=== PATIENT | male | born 1965 | race Caucasian/White ===

== ENCOUNTER → 2017-11-10 | Outpatient (CLI) | payer BC ==
--- NOTE | 2017-11-10 13:27 | CT ---
EXAMINATION TYPE: CT chest wo con DATE OF EXAM: 11/10/2017 COMPARISON: NONE HISTORY: Follow up to lung nodule CT DLP: 696 mGycm, Automated exposure control for dose reduction was used. CONTRAST: Performed injected with 0 mL of Isovue 370. TECHNIQUE: Axial images were obtained at 5 mm thick sections. Reconstructed images are reviewed on [employer] computer in the coronal plane. FINDINGS: Portion of the thyroid visualized is normal. No suspicious lung nodules or focal infiltrates are present. There is a punctate nodule measuring 0.3 cm in the periphery of the right upper lobe. Series 4 image 25. Follow-up exam in 6 months can be pe rformed. No enlarged mediastinal or hilar adenopathy is evident. The ascending aorta diameter at the level o f the main pulmonary artery is 3.2 cm. The main pulmonary artery diameter at the bifurcation is 2.[address] sections are obtained through the upper abdomen. There is a nonobstructing 0.2 cm calcific ation in the mid right kidney. No hydronephrosis is evident. Abdomen is otherwise unremarkable. IMPRESSIONS: 1. No acute process. 2. 0.3 cm nodule periphery right upper lobe.
== END | disposition home or self-care (01) ==
LOC: RADCTMAIN 12:46
DX: R91.1 Solitary pulmonary nodule (principal)
CPT/HCPCS: 71250

== ENCOUNTER → 2017-12-06 | Outpatient (CLI) | payer BC | LOC: RADMRIMAIN 12:00 | PROVIDERS: ATTEND Internal Medicine | DX: Z53.8 Procedure and treatment not carried out for other reasons (principal) ==

== ENCOUNTER → 2021-01-15 | Outpatient (CLI) | payer BC ==
--- NOTE | 2021-01-15 11:49 | CTL ---
EXAMINATION TYPE: CT Low Dose Lung DATE OF EXAM ORDERED: 01/15/2021 COMPARISON: HISTORY: . Low Dose CT Lung Screening CT DLP: 115.[address] CTDI: 2.9 mGy IV CONTRAST USED: None. SCREENING VISIT: First visit COMPARISON: None. TECHNIQUE: Low dose computed tomography scan was performed through the chest at 1 millimeter thick se ctions and reconstructed images in the coronal plane at [address] DIAGNOSTIC QUALITY: Satisfactory FINDINGS: LUNG NODULES: Left lower lobe pulmonary nodule measuring 5.8 mm image 185. No additional nodules seen . LUNGS: COPD: Severity: None Fibrosis: Severity:None Lymph nodes: None Other findings: None RIGHT PLEURAL SPACE: Effusion: None Calcification: None Thickening: None Pneumothorax: None LEFT PLEURAL SPACE: Effusion: None Calcification: None Thickening: None Pneumothorax: None HEART: Heart Size: Mildly enlarged Coronary calcification: Mild Pericardial effusion: None OTHER FINDINGS: Upper abdomen: No significant abnormality Bony thorax: Degenerative changes Supraclavicular region: No significant abnormalityOther: No significant abnormalityI IMPRESSION: Benign FOLLOW UP CT CHEST RECOMMENDATION: Follow-up screening in one year. Smoking cessation recommended. CT LUNG RAD: LUNG RAD CATEGORY 2 benign.
== END | disposition home or self-care (01) ==
LOC: RADCTMAIN 11:18
PROVIDERS: ATTEND Internal Medicine
DX: Z12.2 Encounter for screening for malignant neoplasm of respiratory organs (principal)
CPT/HCPCS: 71271

== ENCOUNTER → 2021-02-12 | Outpatient (CLI) | payer BC ==
--- NOTE | 2021-02-12 14:18 | EST ---
EXERCISE STRESS AGE: 55 SEX: M HT: 5'11" WT: 185 lbs. PROTOCOL: Cardiolite Mickey STAGE: 4 DURATION OF EXERCISE: 10:04 HEART RATE REST: 74 BLOOD PRESSURE REST: 154/95 MAXIMUM HEART RATE ACHIEVED: 145 MAXIMUM BLOOD PRESSURE: 204/100 85% MPHR: 139 100% MPHR: 163 METS: 13.0 INDICATIONS: Abnormal EKG CLINICAL INFORMATION: Baseline rhythm is a sinus mechanism, rate of 74, right bundle branch block. Baseline blood pressure 154/95 mmHg. Patient exercised on Mickey protocol for 10 minutes 4 seconds, reaching a peak rate of 145 beats per minute, which is equal to 89% of maximum predicted heart rate. Peak blood pressure 204/100 minute Hg. Test was terminated because of fatigue. There was no chest pain. Electrocardiographic monitoring revealed no evidence of diagnostic ischemic ST deviation. CONCLUSION: 1. Good exercise tolerance with normal echocardiographic response to exercise. 2. No chest discomfort was noted. MMODL / IJN: [id number] /
--- NOTE | 2021-02-12 14:54 | NM ---
EXAMINATION TYPE: NM stress cardiolite complete DATE OF EXAM: 02/12/2021 COMPARISON: NONE HISTORY: R07.2 R00.2 TECHNIQUE: After the intravenous administration of 10.0 mCi Tc 99m Sestamibi - Rest images obtained 45 minutes post injection. The patient exercised using a CARMEN protocol and 1 minute prior to peak exercise was injected with 25.5 mCi Tc 99m Sestamibi - Stress images obtained 20 minutes post injecti on. FINDINGS: Targeted heart rate was achieved during performance of the study, patient achieved 89% of predicted m aximal heart rate. Review of stress and rest SPECT images demonstrates decreased uptake along the inf erior wall on stress and rest images, there is decreased uptake along the septum on stress as compare d to rest images towards the apex, decreased uptake along the septum on stress and rest images toward s the base of the heart. Gated analysis shows normal wall motion with an estimated left ventricular ejection fraction of 70 %. IMPRESSION: Evidence of prior infarct, there is stress-induced left ventricular myocardial ischemia, consider ech ocardiographic correlation for elevated ejection fraction. Referring clinician's office called with t he findings.
== END | disposition home or self-care (01) ==
LOC: RADNMMAIN 02-03 10:48
PROVIDERS: ATTEND Internal Medicine
DX: I63.9 Cerebral infarction, unspecified (principal); I25.9 Chronic ischemic heart disease, unspecified
CPT/HCPCS: 93017; 93225; 93226; 78452; A9500

== ENCOUNTER 2023-03-24 12:25 | Inpatient (IN) | payer BC ==
[2023-03-24 13:04] LABS: Basophils % (A) 0 %; Eosinophils # (A) 0.3 k/uL (0-0.7); Eosinophils % (A) 2 %; HCT 49.8 % (39.0-53.0); Lymphocytes # (A) 2.4 k/uL (1.0-4.8); Lymphocytes % (A) 16 %; MCH 33.4 pg (25.0-35.0); MCHC 34.2 g/dL (31.0-37.0); MCV 97.7 fL (80.0-100.0); Mean Platelet Volume 7.8; Monocytes # (A) 0.8 k/uL (0-1.0); Monocytes % (A) 5 %; Neutrophils # (A) 11.5 k/uL (1.3-7.7); Neutrophils % (A) 75 %; Platelet Count 431 k/uL (150-450); RDW 12.5 % (11.5-15.5); WBC 15.2 k/uL (3.8-10.6)
--- NOTE | 2023-03-24 13:15 | XR ---
EXAMINATION TYPE: XR chest 2V DATE OF EXAM: 03/24/2023 1:07 PM CLINICAL INDICATION:Male, 57 years old with history of Chest Pain; COMPARISON: 01/15/2021 TECHNIQUE: XR chest 2V Frontal and lateral views of the chest. FINDINGS: Lungs/Pleura: There is no evidence of pleural effusion, focal consolidation, or pneumothorax. Pulmonary vascularity: Unremarkable. Heart/mediastinum: Cardiomediastinal silhouette is unremarkable. Musculoskeletal: No acute osseous pathology. IMPRESSION: No acute cardiopulmonary disease/process.
[2023-03-24 13:20] LABS: ALT 71 U/L (4-49); AST 39 U/L (17-59); African American GFR (CKD) >90 (>60 ml/min/1.73 sqM); Albumin 4.7 g/dL (3.5-5.0); Alkaline Phosphatase 87 U/L (38-126); Anion Gap 14 mmol/L; Blood Urea Nitrogen 17 mg/dL (9-20); Carbon Dioxide 25 mmol/L (22-30); Chloride 99 mmol/L (98-107); Glucose 104 mg/dL (74-99); Magnesium 1.9 mg/dL (1.6-2.3); Non-African American GFR(CKD) 88 (>60 ml/min/1.73 sqM); Potassium 4.1 mmol/L (3.5-5.1); Sodium 138 mmol/L (137-145); Total Bilirubin 1.4 mg/dL (0.2-1.3); Total Protein 7.7 g/dL (6.3-8.2)
[2023-03-24 13:30] LABS: INR 0.9 (<1.2); Partial Thromboplastin Time 23.3 sec (22.0-30.0); Prothrombin Time 10.2 sec (10.0-12.5)
[2023-03-24] MEDS ORDERED: NITROGLYCERIN OINT 1 INCH/GM PACKET TOPICAL STA (15:00)
[2023-03-24] MEDS ORDERED: NITROGLYCERIN SL TABS 0.4 MG TAB SUBLINGUAL PRN (16:00)
--- NOTE | 2023-03-24 16:00 | ED ---
General Adult HPI - General Chief complaint: Chest Pain Stated complaint: Chest pains Time Seen by Provider: 03/24/23 14:45 Source: patient, RN notes reviewed, old records reviewed Mode of arrival: ambulatory Limitations: no limitations - History of Present Illness Initial comments: This is a 57-year-old male who presents emergency Department complaining of chest pain. Patient states he has a history of some chest pain but usually associated with his ulcer. Patient states This chest pain was considerably different than he is experiencing the past. Patient states the pain radiated down his left arm and it lasted for at least a half an hour and also made him short of breath. Patient states this is not typical of any chestexpansion the past. Patient states he is a smoker does have high blood pressure. Patient denies any recent fever but states she's had a cough he was treated with prednisone and Levaquin and his last dose was yesterday. Patient denies any lightheadedness or dizziness. Patient denies any palpitations. Patient denies abdominal pain. Patient denies any diaphoretic episodes or nausea. - Related Data Home Medications Medication Instructions Recorded Confirmed Pantoprazole Sodium [Protonix] 40 mg PO BID 11/15/18 03/24/23 Albuterol Inhaler [Ventolin Hfa 2 puff INHALATION RT-Q4H PRN 03/24/23 03/24/23 Inhaler] Levofloxacin [Levaquin] 500 mg PO DAILY 03/24/23 03/24/23 Lisinopril-Hctz 10-12.5 mg 1 tab PO DAILY 03/24/23 03/24/23 [Zestoretic 10-12.5] predniSONE [Deltasone] 20 mg PO TID 03/24/23 03/24/23 Allergies Allergy/AdvReac Type Severity Reaction Status Date / Time aspirin AdvReac Abdominal Verified 03/24/23 15:43 Pain & Chest Pain ibuprofen [From Motrin] AdvReac Abdominal Verified 03/24/23 15:43 Pain & Chest Pain Review of Systems ROS Statement: Those systems with pertinent positive or pertinent negative responses have been documented in the HPI. ROS Other: All systems not noted in ROS Statement are negative. Past Medical History Additional Past Medical History / Comment(s): Duodenal ulcer, barrets esophagus History of Any Multi-Drug Resistant Organisms: None Reported Past Surgical History: Cholecystectomy, Hernia Repair Past Psychological History: No Psychological Hx Reported Smoking Status: Current every day smoker Past Alcohol Use History: Occasional Past Drug Use History: None Reported General Exam - General Exam Comments Initial Comments: GENERAL: Patient is well-developed and well-nourished. Patient is nontoxic and well- hydrated and is in mild distress. ENT: Neck is soft and supple. No significant lymphadenopathy is noted. Oropharynx is clear. Moist mucous membranes. Neck has full range of motion without eliciting any pain. EYES: The sclera were anicteric and conjunctiva were pink and moist. Extraocular movements were intact and pupils were equal round and reactive to light. Eyelids were unremarkable. PULMONARY: Unlabored respirations. Good breath sounds bilaterally. No audible rales rhonchi or wheezing was noted. CARDIOVASCULAR: There is a regular rate and rhythm without any murmurs gallops or rubs. ABDOMEN: Soft and nontender with normal bowel sounds. SKIN: Skin is clear with no lesions or rashes and otherwise unremarkable. NEUROLOGIC: Patient is alert and oriented x3. Cranial nerves II through XII are grossly intact. Motor and sensory are also intact. Normal speech, volume and content. Symmetrical smile. MUSCULOSKELETAL: Normal extremities with adequate strength and full range of motion. LYMPHATICS: No significant lymphadenopathy is noted PSYCHIATRIC: Normal psychiatric evaluation. Limitations: no limitations Course Vital Signs 03/24/23 03/24/23 03/24/23 12:33 15:00 15:47 Temperature 98.8 F Pulse Rate 105 H 81 88 Respiratory 18 18 14 Rate Blood Pressure 167/96 117/93 109/80 O2 Sat by Pulse 100 95 94 L Oximetry Medical Decision Making - Medical Decision Making EKG is interpreted by myself. EKG shows a sinus rhythm with occasional PACs. Patient's heart rate is 95 bpm OR interval 246 QRS is 170 QT interval 07/27/2019 QTC is 414. Patient's EKG shows no ST segment elevation or depression. Was pt. sent in by a medical professional or institution (, PA, [facility], urgent care, hospital, or care home...) When possible be specific @ -No Did you speak to anyone other than the patient for history (EMS, parent, family, police, friend...)? What history was obtained from this source @ -No Did you review nursing and triage notes (agree or disagree)? Why? @ -I reviewed and agree with nursing and triage notes Were old charts reviewed (outside hosp., previous admission, EMS record, old EKG, old radiological studies, urgent care reports/EKG's, care home records)? Report findings @ -No old charts were reviewed Differential Diagnosis (chest pain, altered mental status, abdominal pain women, abdominal pain men, vaginal bleeding, weakness, fever, dyspnea, syncope, headache, dizziness, GI bleed, back pain, seizure, CVA, palpatations, mental health, musculoskeletal)? @ -Differential Chest Pain: Stable Angina, Unstable Angina, STEMI, NSTEMI Aortic Dissection, Pneumothorax, Musculoskeletal, Esophageal Spasm GERD, Cholecystitis, Pancreatitis, Zoster, this is not meant to be an all-inclusive list. EKG interpreted by me (3pts min.). @ -As above X-rays interpreted by me (1pt min.). @ -Chest x-ray shows no acute abnormality CT interpreted by me (1pt min.). @ -None done U/S interpreted by me (1pt. min.). @ -None done What testing was considered but not performed or refused? (CT, X-rays, U/S, labs)? Why? @ -None What meds were considered but not given or refused? Why? @ -None Did you discuss the management of the patient with other professionals (prof weaver i.eBernabe Castillo, PA, [facility], lab, RT, psych nurse, social media analyst, admission nurse coordinator, teacher, building drafting officer, case consultant)? Give summary @ -Glen with [facility] hospitalist they were in agreement with admitting the patient admitted the patient wrote admitting orders Was smoking cessation discussed for >3mins.? @ -No Was critical care preformed (if so, how long)? @ -No Were there social determinants of health that impacted care today? How? (Homelessness, low income, unemployed, alcoholism, drug addiction, transportation, low edu. Level, literacy, decrease access to med. care, long-term, rehab)? @ -No Was there de-escalation of care discussed even if they declined (Discuss DNR or withdrawal of care, Hospice)? DNR status @ -No What co-morbidities impacted this encounter? (DM, HTN, Smoking, COPD, CAD, Cancer, CVA, ARF, Chemo, Hep., AIDS, mental health diagnosis, sleep apnea, morbid obesity)? @ -None Was patient admitted / discharged? Hospital course, mention meds given and route, prescriptions, significant lab abnormalities, going to OR and other pertinent info. @ -Cannot take aspirin. Patient had Nitropaste the pain did seem to subside a little. Patient will be admitted for repeat troponins and cardiology will see the patient. I spoke with [facility] and they agreed to admit the patient Undiagnosed new problem with uncertain prognosis? @ -No Drug Therapy requiring intensive monitoring for toxicity (Heparin, Nitro, Insulin, Cardizem)? @ -No Were any procedures done? @ -No Diagnosis/symptom? @ -Chest pain Acute, or Chronic, or Acute on Chronic? @ -Acute Uncomplicated (without systemic symptoms) or Complicated (systemic symptoms)? @ -Complicated Side effects of treatment? @ -No Exacerbation, Progression, or Severe Exacerbation? @ -No Poses a threat to life or bodily function? How? (Chest pain, [place], [place], pneumonia, PE, COPD, DKA, ARF, appy, cholecystitis, CVA, Diverticulitis, Homicidal, Suicidal, threat to staff... and all critical care pts) @ -Yes this can lead to an FL and and organ dysfunction or - Lab Data Result diagrams: 03/24/23 12:46 03/24/23 12:46 Lab Results 03/24/23 03/24/23 03/24/23 Range/Units 12:46 12:46 12:46 WBC 15.2 H (3.8-10.6) k/uL RBC 5.10 (4.30-5.90) m/uL Hgb 17.0 (13.0-17.5) gm/dL Hct 49.8 (39.0-53.0) % MCV 97.7 (80.0-100.0) fL MCH 33.4 (25.0-35.0) pg MCHC 34.2 (31.0-37.0) g/dL RDW 12.5 (11.5-15.5) % Plt Count 431 (150-450) k/uL MPV 7.8 Neutrophils % 75 % Lymphocytes % 16 % Monocytes % 5 % Eosinophils % 2 % Basophils % 0 % Neutrophils # 11.5 H (1.3-7.7) k/uL Lymphocytes # 2.4 (1.0-4.8) k/uL Monocytes # 0.8 (0-1.0) k/uL Eosinophils # 0.3 (0-0.7) k/uL Basophils # 0.0 (0-0.2) k/uL PT 10.2 (10.0-12.5) sec INR 0.9 (<1.2) APTT 23.3 (22.0-30.0) sec Sodium 138 (137-145) mmol/L Potassium 4.1 (3.5-5.1) mmol/L Chloride 99 (98-107) mmol/L Carbon Dioxide 25 (22-30) mmol/L Anion Gap 14 mmol/L BUN 17 (9-20) mg/dL Creatinine 0.95 (0.66-1.25) mg/dL Est GFR (CKD-EPI)AfAm >90 (>60 ml/min/1.73 sqM) Est GFR (CKD-EPI)NonAf 88 (>60 ml/min/1.73 sqM) Glucose 104 H (74-99) mg/dL Calcium 10.0 (8.4-10.2) mg/dL Magnesium 1.9 (1.6-2.3) mg/dL Total Bilirubin 1.4 H (0.2-1.3) mg/dL AST 39 (17-59) U/L ALT 71 H (4-49) U/L Alkaline Phosphatase 87 (38-126) U/L Troponin I (0.000-0.034) ng/mL Total Protein 7.7 (6.3-8.2) g/dL Albumin 4.7 (3.5-5.0) g/dL Influenza Type A (PCR) (Not Detectd) Influenza Type B (PCR) (Not Detectd) RSV (PCR) (Not Detectd) SARS-CoV-2 (PCR) (Not Detectd) 03/24/23 03/24/23 Range/Units 12:46 12:46 WBC (3.8-10.6) k/uL RBC (4.30-5.90) m/uL Hgb (13.0-17.5) gm/dL Hct (39.0-53.0) % MCV (80.0-100.0) fL MCH (25.0-35.0) pg MCHC (31.0-37.0) g/dL RDW (11.5-15.5) % Plt Count (150-450) k/uL MPV Neutrophils % % Lymphocytes % % Monocytes % % Eosinophils % % Basophils % % Neutrophils # (1.3-7.7) k/uL Lymphocytes # (1.0-4.8) k/uL Monocytes # (0-1.0) k/uL Eosinophils # (0-0.7) k/uL Basophils # (0-0.2) k/uL PT (10.0-12.5) sec INR (<1.2) APTT (22.0-30.0) sec Sodium (137-145) mmol/L Potassium (3.5-5.1) mmol/L Chloride (98-107) mmol/L Carbon Dioxide (22-30) mmol/L Anion Gap mmol/L BUN (9-20) mg/dL Creatinine (0.66-1.25) mg/dL Est GFR (CKD-EPI)AfAm (>60 ml/min/1.73 sqM) Est GFR (CKD-EPI)NonAf (>60 ml/min/1.73 sqM) Glucose (74-99) mg/dL Calcium (8.4-10.2) mg/dL Magnesium (1.6-2.3) mg/dL Total Bilirubin (0.2-1.3) mg/dL AST (17-59) U/L ALT (4-49) U/L Alkaline Phosphatase (38-126) U/L Troponin I 0.016 (0.000-0.034) ng/mL Total Protein (6.3-8.2) g/dL Albumin (3.5-5.0) g/dL Influenza Type A (PCR) Not Detected (Not Detectd) Influenza Type B (PCR) Not Detected (Not Detectd) RSV (PCR) Not Detected (Not Detectd) SARS-CoV-2 (PCR) Not Detected (Not Detectd) Disposition Clinical Impression: Chest pain Disposition: ADMITTED IP TO THIS HOSP Referrals: Vern Ernandez MD [Primary Care Provider] - 1-2 days Time of Disposition: 16:00
[2023-03-24] MEDS ORDERED: ALBUTEROL NEBULIZED 2.5 MG/3 ML INHALATION PRN (16:01)
[2023-03-24] MEDS: PANTOPRAZOLE 40 MG TABLET PO SCH (17:53)
[2023-03-24] MEDS: NITROGLYCERIN OINT 1 INCH/GM PACKET TOPICAL SCH ×2 (21:25→23:17)
[2023-03-25] MEDS: NITROGLYCERIN OINT 1 INCH/GM PACKET TOPICAL SCH ×4 (05:54→23:20)
[2023-03-25 07:10] LABS: Basophils # (A) 0.1 k/uL (0-0.2); Basophils % (A) 1 %; Eosinophils # (A) 0.2 k/uL (0-0.7); Eosinophils % (A) 2 %; HCT 47.3 % (39.0-53.0); Lymphocytes # (A) 2.5 k/uL (1.0-4.8); Lymphocytes % (A) 20 %; MCH 32.7 pg (25.0-35.0); MCHC 33.8 g/dL (31.0-37.0); MCV 96.9 fL (80.0-100.0); Mean Platelet Volume 7.8; Monocytes # (A) 0.9 k/uL (0-1.0); Monocytes % (A) 7 %; Neutrophils % (A) 70 %; Platelet Count 402 k/uL (150-450); RBC 4.88 m/uL (4.30-5.90); RDW 12.4 % (11.5-15.5); WBC 12.9 k/uL (3.8-10.6)
[2023-03-25 07:20] LABS: African American GFR (CKD) >90 (>60 ml/min/1.73 sqM); Anion Gap 13 mmol/L; Blood Urea Nitrogen 18 mg/dL (9-20); Calcium 9.7 mg/dL (8.4-10.2); Carbon Dioxide 25 mmol/L (22-30); Chloride 97 mmol/L (98-107); Glucose 102 mg/dL (74-99); Non-African American GFR(CKD) 89 (>60 ml/min/1.73 sqM); Sodium 135 mmol/L (137-145)
[2023-03-25 07:34] VITALS: RESP 18
[2023-03-25 08:09] LABS: Potassium 4.4 mmol/L (3.5-5.1)
[2023-03-25 08:43] LABS: Chol/HDL Ratio 4.22 Ratio
[2023-03-25] MEDS ORDERED: HEPARIN SODIUM 1,000 UN/ML (10ML VL) IV ONE ×2 (08:53→11:00)
[2023-03-25] MEDS ORDERED: HEPARIN SODIUM 1,000 UN/ML (10ML VL) IV PRN (08:53)
[2023-03-25] MEDS ORDERED: LISINOPRIL-HCTZ 10-12.5 MG 1 EACH TAB PO SCH (09:00)
[2023-03-25] MEDS: HEPARIN SOD,PORK IN 0.45% NACL 25,000 UNIT in 0.45% NACL 1 250ML.BAG IV SCH ×2 (09:05→16:16)
[2023-03-25] MEDS: PANTOPRAZOLE 40 MG TABLET PO SCH ×2 (09:12→18:10)
[2023-03-25] MEDS ORDERED: ASPIRIN 325 MG TAB PO STA (09:35)
[2023-03-25] MEDS ORDERED: ALPRAZolam 0.5 MG TAB PO PRN (09:40)
[2023-03-25] MEDS ORDERED: ALPRAZolam 0.25 MG TAB PO PRN (09:40)
[2023-03-25] MEDS: ATORVASTATIN 80 MG TAB PO SCH (09:42)
[2023-03-25] MEDS: METOPROLOL TARTRATE 25 MG TAB PO SCH ×2 (09:43→20:35)
--- NOTE | 2023-03-25 10:05 | CONS ---
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 He has hypertension recently diagnosed, was placed on lisinopril, hydrochlorothiazide. He used it for a few days, stopped taking it. He also smokes a pack a day. He just quit 5 days ago because of a recent upper respiratory tract infection and a bronchitis-type picture, and he is on a combination of steroids and inhalers. He has a history of peptic ulcer disease, specifically duodenal ulcer, which apparently bled 4 years ago. Blood transfusion was not required. He is on Protonix. He has sometimes epigastric discomfort, lasts a few minutes and goes away, but yesterday he woke up with the pain that seemed to persist longer, seemed somewhat different, and it seemed to be more midsternal location. Pain seemed to persist longer than usual. Therefore, he came into the emergency room. His initial EKG revealed sinus mechanism with IVCD, RBBB type, and subsequent EKG was also right bundle. However, his pain seemed to have resolved after he came in, but the troponin has gone up suggestive of [id number]. He also had discomfort that radiated down the left arm, associated with some shortness of breath and diaphoresis, but all of this has resolved. He is pain-free, resting comfortably. Troponin elevation noted. EKG remains sinus with a right bundle. No acute changes. PAST MEDICAL HISTORY: 1. Smoking and COPD. 2. History of hypertension, recent diagnosis, not consistently taking his medications, lisinopril, hydrochlorothiazide. 3. History of gallbladder surgery. 4. Smoking and also COPD. 5. History of some hernia repair, details unavailable. SOCIAL HISTORY: Remarkable for smoking and occasional alcohol use. No recreational drug use. PHYSICAL EXAMINATION: VITAL SIGNS: Blood pressure is 108/70, pulse rate is 84 per minute. HEENT: Unremarkable. Fundus was not examined by me. NECK: Supple. There is no JVD. I do not hear a carotid bruit. HEART: Reveals S1, S2 heard normally. No significant rub, murmur, or gallop. LUNGS: Clear with fine rales over both bases. ABDOMEN: Soft, nontender. LOWER EXTREMITIES: Reveal diminished pulses. CENTRAL NERVOUS SYSTEM: Normal. LABORATORY DATA: EKG revealed right bundle, no acute changes. Troponin profile initially was 0.016, subsequent 0.2, and repeat one 0.189. Profile suggests a [id number] MO. LDL cholesterol is 152. IMPRESSION: 1. Acute [id number] myocardial infarction. 2. Smoking and chronic obstructive pulmonary disease. 3. History of peptic ulcer disease. 4. History of hyperlipidemia. 5. Recent bronchitis, upper respiratory infection, on steroids and bronchodilators. RECOMMENDATIONS: I am recommending intravenous heparin, beta elton, atorvastatin. We will take him to the [facility] from right radial cath. On questioning, the patient apparently had an abnormal stress test 2 years ago and a cardiac cath in the [facility] and was told that his cardiac cath was normal. This was in January 2021. The patient and his son understand rationale, risks, benefits, options, and wished to proceed with cardiac cath, possible PCI. MMODL / IJN: [id number] /
[2023-03-25] MEDS ORDERED: VERAPAMIL 2.5 MG/ML 2 ML AMP ONE (10:09)
--- NOTE | 2023-03-25 10:34 | P.HPIM ---
History of Present Illness Patient is a 57-year-old pleasant male came in 9 with complaints of persistent epigastric abdominal pain patient has this epigastric abdominal pain on and off. EKG showed sinus rhythm with a right bundle branch blocks. Patient chest pain improved but his troponin went up from normal to 0.205.. His chest discomfort is associated with the shortness of breath, diaphoresis and radiating to the left arm. Considering troponin elevation and his symptoms cardiology is according cardiac catheterization patient will undergo cardiac catheterization today. Patient was recently diagnosed with hypertension and was started on lisinopril hydrochlorothiazide although his blood pressure is low with systolics going down to as low as 105. REVIEW OF SYSTEMS: CONSTITUTIONAL: No fever, no malaise, no fatigue. HEENT: No recent visual problems or hearing problems. Denied any sore throat. CARDIOVASCULAR: No orthopnea, PND, no palpitations, no syncope. PULMONARY: no cough, no hemoptysis. GASTROINTESTINAL: No diarrhea, no nausea, no vomiting, no abdominal pain. NEUROLOGICAL: No headaches, no weakness, no numbness. HEMATOLOGICAL: Denies any bleeding or petechiae. GENITOURINARY: Denies any burning micturition, frequency, or urgency. MUSCULOSKELETAL/RHEUMATOLOGICAL: Denies any joint pain, swelling, or any muscle pain. ENDOCRINE: Denies any polyuria or polydipsia. The rest of the 14-point review of systems is negative. PHYSICAL EXAMINATION: GENERAL: The patient is alert and oriented x3, not in any acute distress. Well developed, well nourished. HEENT: Pupils are round and equally reacting to light. EOMI. No scleral icterus. No conjunctival pallor. Normocephalic, atraumatic. No pharyngeal erythema. No thyromegaly. CARDIOVASCULAR: S1 and S2 present. No murmurs, rubs, or gallops. PULMONARY: Chest is clear to auscultation, no wheezing or crackles. ABDOMEN: Soft, nontender, nondistended, normoactive bowel sounds. No palpable organomegaly. MUSCULOSKELETAL: No joint swelling or deformity. EXTREMITIES: No cyanosis, clubbing, or pedal edema. NEUROLOGICAL: Gross neurological examination did not reveal any focal deficits. SKIN: No rashes. Assessment and plan -Acute non-ST elevation microinfarction patient will undergo cardiac catheterization continue with the heparin for now. Patient was started on beta elton. -Hypertension patient blood pressure is low considering his microinfarction patient may benefit from low-dose REILLY inhibitor patient was started on 5 mg of lisinopril hold off on his home dose of lisinopril-hydrochlorothiazide -Recent upper respiratory infection for which patient is taking Lovenox we reassess need for continuation of Lovenox. DVT prophylaxis: He is on anticoagulation Past Medical History Additional Past Medical History / Comment(s): Duodenal ulcer, barrets esophagus History of Any Multi-Drug Resistant Organisms: None Reported Past Surgical History: Cholecystectomy, Hernia Repair Past Psychological History: No Psychological Hx Reported Smoking Status: Current every day smoker Past Alcohol Use History: Occasional Past Drug Use History: None Reported Medications and Allergies Home Medications Medication Instructions Recorded Confirmed Type Pantoprazole Sodium [Protonix] 40 mg PO BID 11/15/18 03/24/23 History Albuterol Inhaler [Ventolin Hfa 2 puff INHALATION RT-Q4H PRN 03/24/23 03/24/23 History Inhaler] Levofloxacin [Levaquin] 500 mg PO DAILY 03/24/23 03/24/23 History Lisinopril-Hctz 10-12.5 mg 1 tab PO DAILY 03/24/23 03/24/23 History [Zestoretic 10-12.5] predniSONE [Deltasone] 20 mg PO TID 03/24/23 03/24/23 History Allergies Allergy/AdvReac Type Severity Reaction Status Date / Time aspirin AdvReac Abdominal Verified 03/24/23 15:43 Pain & Chest Pain ibuprofen [From Motrin] AdvReac Abdominal Verified 03/24/23 15:43 Pain & Chest Pain Physical Exam Vitals: Vital Signs Temp Pulse Resp BP Pulse Ox 03/25/23 09:09 92 18 105/73 98 03/25/23 07:29 81 18 99/81 98 03/25/23 06:00 84 17 103/75 98 03/25/23 04:06 98.8 F 91 17 100/74 96 03/25/23 02:10 82 21 104/71 95 03/25/23 01:50 82 14 93 L 03/25/23 00:10 93 21 99/67 97 03/24/23 23:30 99 22 105/77 95 03/24/23 21:28 90 16 114/79 95 03/24/23 17:54 98.6 F 93 16 116/78 96 03/24/23 15:47 88 14 109/80 94 L 03/24/23 15:00 81 18 117/93 95 03/24/23 12:33 98.8 F 105 H 18 167/96 100 Results CBC & Chem 7: 03/25/23 06:45 03/25/23 06:45 Labs: Abnormal Lab Results - Last 24 Hours (Table) 03/24/23 03/24/23 03/24/23 Range/Units 12:46 12:46 12:46 WBC 15.2 H (3.8-10.6) k/uL Neutrophils # 11.5 H (1.3-7.7) k/uL Sodium (137-145) mmol/L Chloride (98-107) mmol/L Glucose 104 H (74-99) mg/dL Total Bilirubin 1.4 H (0.2-1.3) mg/dL ALT 71 H (4-49) U/L Troponin I (0.000-0.034) ng/mL Cholesterol 234.00 H (0.00-200.00) mg/dL LDL Cholesterol, Calc 152.0 H (0.0-131.0) mg/dL 03/24/23 03/24/23 03/25/23 Range/Units 16:27 19:01 06:45 WBC 12.9 H (3.8-10.6) k/uL Neutrophils # 9.0 H (1.3-7.7) k/uL Sodium (137-145) mmol/L Chloride (98-107) mmol/L Glucose (74-99) mg/dL Total Bilirubin (0.2-1.3) mg/dL ALT (4-49) U/L Troponin I 0.205 H* 0.189 H* (0.000-0.034) ng/mL Cholesterol (0.00-200.00) mg/dL LDL Cholesterol, Calc (0.0-131.0) mg/dL 03/25/23 Range/Units 06:45 WBC (3.8-10.6) k/uL Neutrophils # (1.3-7.7) k/uL Sodium 135 L (137-145) mmol/L Chloride 97 L (98-107) mmol/L Glucose 102 H (74-99) mg/dL Total Bilirubin (0.2-1.3) mg/dL ALT (4-49) U/L Troponin I (0.000-0.034) ng/mL Cholesterol (0.00-200.00) mg/dL LDL Cholesterol, Calc (0.0-131.0) mg/dL
[2023-03-25] MEDS ORDERED: MIDAZOLAM 2 MG/2 ML VIAL IVP ONE ×2 (10:54)
[2023-03-25] MEDS ORDERED: LIDOCAINE 1% INJ 10MG/ML (20 ML MDV) SQ ONE (10:56)
[2023-03-25] MEDS ORDERED: VERAPAMIL SYRINGE (5 MG/10 ML) INTRAARTER ONE (11:00)
[2023-03-25] MEDS ORDERED: IOPAMIDOL-370 100ML BTL INJ ONE (11:11)
[2023-03-25] MEDS ORDERED: IV FLUID CONTINUATION 900 ML IV ONE (11:11)
[2023-03-25] MEDS ORDERED: RX INFO: IV CONTRAST WAS GIVEN 1 EACH MISC MISCELLANE PRN (11:23)
[2023-03-25] MEDS ORDERED: SODIUM CHLORIDE 0.9% 1,000 ML IV SCH (11:30)
[2023-03-25] MEDS ORDERED: HEPARIN SOD,PORK IN 0.45% NACL 25,000 UNIT in 0.45% NACL 1 250ML.BAG IV SCH (11:30)
--- NOTE | 2023-03-25 12:46 | CONS ---
CONSULTATION HISTORY OF PRESENT ILLNESS: Estevan Manning is a 57-year-old gentleman who I saw in the emergency room today with chest pain, troponin elevation, non ST elevation HI without EKG changes of significance. He was advised cardiac cath after due discussion. He is a smoker, has hypertension and a cardiac cath 2 years ago, apparently per patient did not reveal significant disease. He was advised the procedure and risks, benefits, options were explained. He understood all details and wished to proceed with the procedure. PROCEDURE NOTE: Under local anesthesia and strict aseptic precautions, a 6-Ukrainian introducer placed in the right radial artery. Using JL 3.5 and JR4 catheters, I performed coronary angiography and the same right catheter was used to check LV pressure, but LV-gram was not performed. The sheath was taken out, and a Vasc Band applied. Saturation of the fingers of the right hand was about 93%. The patient tolerated the procedure well. There were no complications. CARDIAC CATHETERIZATION FINDINGS: The left ventricular end-diastolic pressure was about 5 mmHg without any gradient across the aortic valve. CORONARY ANGIOGRAPHY FINDINGS: The left ventricular end-diastolic pressure was 5 mmHg. There was no gradient across the aortic valve. CORONARY ANGIOGRAPHY FINDINGS: Right coronary artery, a large dominant vessel, somewhat sluggish flow. No significant disease. Distally it bifurcates into PDA and PLV, which has no significant disease. The dominant RCA, no obstructive disease but sluggish flow overall large vessel. Left main coronary artery: Short, patent vessel. No significant disease. It bifurcates into LAD and circumflex. Left anterior descending coronary artery: This vessel extends along the anterior wall, it gives off septal and diagonal branches. Flow is sluggish in the vessel. In the midportion, there is about a 30% to 40% narrowing, gives off a few septal branch, it is a good-sized diagonal branch in the midportion and other diagonal branch. After the second diagonal branch, the continuation of the LAD is diffusely diseased and also probably towards the apical portion, it is subtotally occluded. The distal LAD is totally occluded. The caliber is less than 1 mm towards the apex. This maybe the culprit lesion. There is also a first diagonal branch that comes off much higher and this is a small diagonal branch and that also has about a 70% to 80% narrowing. The caliber of the vessel is about 1 to 1.5 mm. Left posterior circumflex coronary artery: Technically a nondominant vessel, gives off 2 obtuse marginal branches and continues distally. Minor irregularities. No significant disease. FINAL IMPRESSION: This patient has a right-dominant system. Normal filling pressures. No gradient. The LAD has diffuse disease in the proximal and midportion. There is a 30% to 40% narrowing. First diagonal has a 70% to 80% narrowing, small caliber vessel. Distal LAD towards the apex is subtotally occluded and the 2 diagonal branches that are opacified before subtotal occlusion are free of significant disease. RECOMMENDATIONS: Findings were discussed with the patient. I am recommending aggressive medical therapy with lipid-lowering agents, smoking cessation, aspirin and beta blockers. We will obtain echocardiogram to assess LV function. I will continue IV heparin till tomorrow. The patient will go back to the telemetry unit. I discussed my thoughts in detail with the patient. No family was available. MMODL / IJN: [id number] /
[2023-03-25 15:28] LABS: African American GFR (CKD) >90 (>60 ml/min/1.73 sqM); Anion Gap 12 mmol/L; Blood Urea Nitrogen 17 mg/dL (9-20); Calcium 9.6 mg/dL (8.4-10.2); Carbon Dioxide 23 mmol/L (22-30); Chloride 100 mmol/L (98-107); Glucose 98 mg/dL (74-99); Non-African American GFR(CKD) 90 (>60 ml/min/1.73 sqM); Potassium 4.2 mmol/L (3.5-5.1); Sodium 135 mmol/L (137-145)
[2023-03-25 15:37] LABS: INR 0.9 (<1.2); Partial Thromboplastin Time 24.3 sec (22.0-30.0); Prothrombin Time 10.2 sec (10.0-12.5)
[2023-03-25] MEDS: SODIUM CHLORIDE 0.9% 1,000 ML in EMPTY BAG 1 BAG IV SCH ×2 (15:51→20:35)
--- NOTE | 2023-03-25 17:47 | CA ---
Transthoracic Echo Report Name: Estevan Manning Age: 57 Gender: M : 1965 Exam Date: 03/25/2023 11:52 Exam Location: [facility] Ht (in): 72 Wt (lb): 180 Ordering Physician: Jacob Becker MD ([id number]) Attending/Referring Phys: Electro Winning Operator Deborah Guo RDCS Procedure CPT: Indications: WALL MOTION/LV FUNCTION Cardiac Hx: Technical Quality: Fair Contrast 1: Total Dose (mL): Contrast 2: Total Dose (mL): MEASUREMENTS (Male / Female) Normal Values 2D ECHO LV Diastolic Diameter PLAX 4.0 cm 4.2 - 5.9 / 3.9 - 5.3 cm LV Systolic Diameter PLAX 2.2 cm IVS Diastolic Thickness 1.3 cm 0.6 - 1.0 / 0.6 - 0.9 cm LVPW Diastolic Thickness 1.5 cm 0.6 - 1.0 / 0.6 - 0.9 cm LV Relative Wall Thickness 0.7 RV Internal Dim ED PLAX 3.7 cm LA Volume 26.7 cm??? 18 - 58 / 22 - 52 cm??? LA Volume Index 13.1 cm???/m??? 16 - 28 cm???/m??? M-MODE Aortic Root Diameter MM 3.2 cm LA Systolic Diameter MM 3.0 cm LA Ao Ratio MM 0.9 DOPPLER AV Peak Velocity 143.7 cm/s AV Peak Gradient 8.3 mmHg AV Mean Velocity 98.4 cm/s AV Mean Gradient 4.4 mmHg AV Velocity Time Integral 24.0 cm LVOT Peak Velocity 114.6 cm/s LVOT Peak Gradient 5.3 mmHg LVOT Velocity Time Integral 19.5 cm MV Area PHT 3.1 cm??? Mitral E Point Velocity 58.7 cm/s Mitral A Point Velocity 70.2 cm/s Mitral E to A Ratio 0.8 MV Deceleration Time 245.7 ms MV E' Velocity 7.2 cm/s Mitral E to MV E' Ratio 8.1 TR Peak Velocity 152.9 cm/s TR Peak Gradient 9.3 mmHg Right Ventricular Systolic Press 14.0 mmHg FINDINGS Left Ventricle Mildly increased left ventricular wall thickness. Left ventricular cavity size normal. Normal left ventricular systolic function with no obvious regional wall motion abnormalities. Left ventricular ejection fraction is estimated at 55-60 %. Right Ventricle Mild right ventricular dilatation. Right ventricular systolic pressure within normal limits. Right Atrium Normal right atrial size. Left Atrium Normal left atrial size. Mitral Valve Structurally normal mitral valve. Mild mitral annular calcification. Trace mitral regurgitation. Aortic Valve No aortic valve stenosis or regurgitation. Tricuspid Valve Structurally normal tricuspid valve. Mild tricuspid regurgitation. Pulmonic Valve Structurally normal pulmonic valve. Pericardium No pericardial effusion. Aorta Normal size aortic root and proximal ascending aorta. CONCLUSIONS 1. Normal left ventricular size and systolic function 2. Trace mitral with mild tricuspid regurgitation Previewed by: Dr. Adalid Guthrie MD (Electronically Signed) Final Date: 25 March 2023 17:46
[2023-03-25] MEDS: NICOTINE 14MG/24HR PATCH TRANSDERM SCH (17:54)
[2023-03-26] MEDS: NITROGLYCERIN OINT 1 INCH/GM PACKET TOPICAL SCH (05:54)
[2023-03-26] MEDS: SODIUM CHLORIDE 0.9% 1,000 ML in EMPTY BAG 1 BAG IV SCH ×2 (05:54→20:08)
[2023-03-26] MEDS: PANTOPRAZOLE 40 MG TABLET PO SCH ×2 (05:54→17:08)
[2023-03-26] MEDS ORDERED: HEPARIN SODIUM,PORCINE (1 ML) 2,500 UNIT in SODIUM CHLORIDE 0.9% 250 ML IRRIGATION PRN (07:00)
[2023-03-26] MEDS ORDERED: HEPARIN SODIUM,PORCINE 10,000 UNIT in SODIUM CHLORIDE 0.9% 1,000 ML IRRIGATION PRN (07:00)
[2023-03-26] MEDS: lisinopriL 5 MG TAB PO SCH (08:42)
[2023-03-26] MEDS: METOPROLOL TARTRATE 25 MG TAB PO SCH ×2 (08:42→19:50)
[2023-03-26] MEDS: ATORVASTATIN 80 MG TAB PO SCH (08:42)
[2023-03-26] MEDS: NICOTINE 14MG/24HR PATCH TRANSDERM SCH (09:19)
[2023-03-26 09:37] LABS: Basophils # (A) 0.1 k/uL (0-0.2); Basophils % (A) 1 %; Eosinophils # (A) 0.3 k/uL (0-0.7); Eosinophils % (A) 3 %; HCT 45.3 % (39.0-53.0); HGB 15.2 gm/dL (13.0-17.5); Lymphocytes # (A) 2.4 k/uL (1.0-4.8); Lymphocytes % (A) 22 %; MCHC 33.6 g/dL (31.0-37.0); MCV 98.2 fL (80.0-100.0); Monocytes # (A) 0.6 k/uL (0-1.0); Monocytes % (A) 6 %; Neutrophils # (A) 7.6 k/uL (1.3-7.7); Neutrophils % (A) 68 %; Platelet Count 351 k/uL (150-450); RBC 4.61 m/uL (4.30-5.90); RDW 12.3 % (11.5-15.5); WBC 11.2 k/uL (3.8-10.6)
[2023-03-26 09:44] LABS: INR 0.9 (<1.2); Partial Thromboplastin Time 28.3 sec (22.0-30.0); Prothrombin Time 10.4 sec (10.0-12.5)
[2023-03-26] MEDS: CLOPIDOGREL 75 MG TAB PO SCH (11:58)
--- NOTE | 2023-03-26 12:56 | P.PN ---
Subjective Progress Note Date: 03/26/23 This is a pleasant 57-year-old gentleman with a history of hypertension smoking for which he recently quit and previous duodenal ulcer. Presented to the hospital with chest discomfort EKG revealed sinus mechanism with right bundle branch block and troponins were elevated. He subsequently underwent cardiac catheterization by Dr. Becker which showed a 40% lesion in the LAD and 70-80% lesion and a small caliber first diagonal branch. He's been recommended to maximize medical therapy. He's been on IV heparin and initiated on statin. We'll cardiovert him with Doppler study showed normal LV systolic function with trace MR and mild TR. Upon examination he is resting comfortably in bed. Denies further complaints of chest discomfort. He does have aspirin listed as an ALLERGY however this is more of upper caution due to prior duodenal ulcer however this was many years ago. He does not have a true aspirin ALLERGY. Vital Signs of been stable. Objective - Vital Signs Vital signs: Vital Signs Temp 98.2 F 03/26/23 08:00 Pulse 89 03/26/23 12:00 Resp 18 03/26/23 12:00 BP 127/58 03/26/23 12:00 Pulse Ox 95 03/26/23 12:00 FiO2 Intake & Output 03/25/23 03/26/23 03/26/23 18:59 06:59 18:59 Intake Total 470.382 68.586 115.734 Output Total 100 Balance 470.382 -31.414 115.734 Weight 81.647 kg Intake: IV 400 Intake, IV Titration 70.382 68.586 115.734 Amount Heparin Sod,Pork in 0.45% 70.382 68.586 115.734 NaCl 25,000 unit In 0.45 % NaCl 1 250ml.bag @ 12 UNITS/KG/HR 9.798 mls/hr IV .Q24H [facility] Rx#: [id number] Output: Urine 100 Other: # Voids 3 - Exam PHYSICAL EXAMINATION: HEENT: Head is atraumatic, normocephalic. Pupils equal, round. Neck is supple. There is no elevated jugular venous pressure. HEART EXAMINATION: Heart sounds regular, S1 and S2 normal. No murmur or gallop heard. CHEST EXAMINATION: Lungs are clear to auscultation and precussion. No chest wall tenderness is noted on palpation or with deep breathing. ABDOMEN: Soft, nontender. Bowel sounds are heard. No organomegaly noted. EXTREMITIES: 2+ peripheral pulses with no evidence of peripheral edema and no calf tenderness noted. 8 radial puncture site clean dry and intact without e cchymosis or hematoma. NEUROLOGIC patient is awake, alert and oriented x3. . - Labs CBC & Chem 7: 03/26/23 08:30 03/25/23 14:42 Labs: Abnormal Lab Results - Last 24 Hours (Table) 03/25/23 03/26/23 Range/Units 14:42 08:30 WBC 11.2 H (3.8-10.6) k/uL Sodium 135 L (137-145) mmol/L Assessment and Plan Assessment: Non ST elevation [place] CAD with disease involving the LAD and first diagonal branch Hypertension Hyperlipidemia Nicotine dependence Plan: From cardiology's perspective we will discontinue IV heparin. We will start the patient on low-dose aspirin and Plavix. Of note he does still have Nitropaste on we will discontinue that. Increase activity, ambulate the patient in the hallway. Depending on his symptoms We anticipate the patient will be discharged home in the next 24 hours. CONFERENCE SPECIALIST note has been reviewed, I agree with a documented findings and plan of care. Patient was seen and examined.
--- NOTE | 2023-03-26 14:47 | P.PN ---
Subjective Progress Note Date: 03/26/23 Patient is a 57-year-old pleasant male came in 9 with complaints of persistent epigastric abdominal pain patient has this epigastric abdominal pain on and off. EKG showed sinus rhythm with a right bundle branch blocks. Patient chest pain improved but his troponin went up from normal to 0.205.. His chest discomfort is associated with the shortness of breath, diaphoresis and radiating to the left arm. Considering troponin elevation and his symptoms cardiology is according cardiac catheterization patient will undergo cardiac catheterization today. Patient was recently diagnosed with hypertension and was started on lisinopril hydrochlorothiazide although his blood pressure is low with systolics going down to as low as 105. 03/26/2023 Patient is evaluated today sitting in bed. No chest pain, no shortness of breath. He has been monitored overnight on IV heparin which has been discontinued patient is now started on aspirin and plavix combination. He underwent cardiac catheterization which reveals' 40% lesion in the LAD and 70- 80% lesion and a small caliber first diagonal branch. He's been recommended to maximize medical therapy. Echocardiogram shows normal LV systolic function with mild TR and trace MR. He will be monitored overnight. Discussed smoking cessation. Review of Systems Constitutional: Denied any fatigue denied any fever. Cardio vascular: denied any chest pain, palpitations Gastrointestinal: denied any nausea, vomiting, diarrhea Pulmonary: Denied any shortness of breath cough Neurologic denied any new focal deficits All inpatient medications were reviewed and appropriate changes in these medications as dictated in the interval history and assessment and plan. PHYSICAL EXAMINATION: GENERAL: The patient is alert and oriented x3, not in any acute distress. Well d eveloped, well nourished. HEENT: Pupils are round and equally reacting to light. EOMI. No scleral icterus. No conjunctival pallor. Normocephalic, atraumatic. No pharyngeal erythema. No thyromegaly. CARDIOVASCULAR: S1 and S2 present. No murmurs, rubs, or gallops. PULMONARY: Chest is clear to auscultation, no wheezing or crackles. ABDOMEN: Soft, nontender, nondistended, normoactive bowel sounds. No palpable organomegaly. MUSCULOSKELETAL: No joint swelling or deformity. EXTREMITIES: No cyanosis, clubbing, or pedal edema. NEUROLOGICAL: Gross neurological examination did not reveal any focal deficits. SKIN: No rashes. Assessment and plan -Acute non-ST elevation MS, status post cardiac catheterization revealing coronary artery disease of the LAD and first diagonal branch, has been started on aspirin and plavix therapy. -Hypertension currently normotensive patient is on beta elton and lisinopril at this time. -Recent upper respiratory infection was on levofloxacin which has been stopped, symptoms are gone. -Barretts esophagus and duodenal ulcer on protonix -History of tobacco use counseled on cessation DVT prophylaxis: Heparin GI prophylaxis: Protonix Plan Patient will be monitored overnight and possible DC home tomorrow. He has been started on optimized medical therapy with aspirin plavix statin lisinopril and metoprolol. The impression and plan of care has been dictated by Samantha Camarena Nurse Practitioner as directed. Dr. Preet MD I have performed a history and physical examination and medical decision making of this patient, discussed the same with the dictator, and agree with the dictators assessment and plan as written, documented as a scribe. Based on total visit time, I have performed more than 50% of this visit. Objective - Vital Signs Vital signs: Vital Signs Temp 98.2 F 03/26/23 08:00 Pulse 89 03/26/23 12:00 Resp 18 03/26/23 12:00 BP 127/58 03/26/23 12:00 Pulse Ox 95 03/26/23 12:00 FiO2 Intake & Output 03/25/23 03/26/23 03/26/23 18:59 06:59 18:59 Intake Total 470.382 68.586 115.734 Output Total 100 Balance 470.382 -31.414 115.734 Weight 81.647 kg Intake: IV 400 Intake, IV Titration 70.382 68.586 115.734 Amount Heparin Sod,Pork in 0.45% 70.382 68.586 115.734 NaCl 25,000 unit In 0.45 % NaCl 1 250ml.bag @ 12 UNITS/KG/HR 9.798 mls/hr IV .Q24H [facility] Rx#: [id number] Output: Urine 100 Other: # Voids 3 - Labs CBC & Chem 7: 03/26/23 08:30 03/25/23 14:42 Labs: Abnormal Lab Results - Last 24 Hours (Table) 03/25/23 03/26/23 Range/Units 14:42 08:30 WBC 11.2 H (3.8-10.6) k/uL Sodium 135 L (137-145) mmol/L Assessment and Plan Time with Patient: Less than 30
[2023-03-26] MEDS: ASPIRIN 81 MG PO SCH (17:08)
[2023-03-26 20:45] VITALS: TEMP 98
[2023-03-27] MEDS: PANTOPRAZOLE 40 MG TABLET PO SCH (06:20)
[2023-03-27] MEDS: ATORVASTATIN 80 MG TAB PO SCH (09:06)
[2023-03-27] MEDS: CLOPIDOGREL 75 MG TAB PO SCH (09:06)
[2023-03-27] MEDS: lisinopriL 5 MG TAB PO SCH (09:06)
[2023-03-27] MEDS: METOPROLOL TARTRATE 25 MG TAB PO SCH (09:06)
[2023-03-27] MEDS: ASPIRIN 81 MG PO SCH (09:06)
[2023-03-27] MEDS: NICOTINE 14MG/24HR PATCH TRANSDERM SCH (09:54)
[2023-03-27 10:26] LABS: African American GFR (CKD) >90 (>60 ml/min/1.73 sqM); Anion Gap 11 mmol/L; Blood Urea Nitrogen 13 mg/dL (9-20); Calcium 9.2 mg/dL (8.4-10.2); Carbon Dioxide 25 mmol/L (22-30); Chloride 100 mmol/L (98-107); Glucose 148 mg/dL (74-99); Non-African American GFR(CKD) >90 (>60 ml/min/1.73 sqM); Sodium 136 mmol/L (137-145)
[2023-03-27] MEDS: SODIUM CHLORIDE 0.9% 1,000 ML in EMPTY BAG 1 BAG IV SCH (10:58)
[2023-03-27 11:49] VITALS: BP 138/76; PULSE 66
--- NOTE | 2023-03-27 12:45 | P.PN ---
Subjective Progress Note Date: 03/27/23 This is a pleasant 57-year-old gentleman with a history of hypertension smoking for which he recently quit and previous duodenal ulcer. Presented to the hospital with chest discomfort EKG revealed sinus mechanism with right bundle branch block and troponins were elevated. He subsequently underwent cardiac catheterization by Dr. Becker which showed a 40% lesion in the LAD and 70-80% lesion and a small caliber first diagonal branch. He's been recommended to maximize medical therapy. He's been on IV heparin and initiated on statin. We'll cardiovert him with Doppler study showed normal LV systolic function with trace MR and mild TR. Upon examination he is resting comfortably in bed. Denies further complaints of chest discomfort. He does have aspirin listed as an ALLERGY however this is more of upper caution due to prior duodenal ulcer however this was many years ago. He does not have a true aspirin ALLERGY. Vital Signs of been stable. 03/27/2023 Patient was seen and examined resting comfortably in bed. He is tolerating current regimen including aspirin, Plavix, Lipitor, lisinopril and metoprolol. He had no recurrence of chest discomfort. Objective - Vital Signs Vital signs: Vital Signs Temp 98.0 F 03/26/23 20:00 Pulse 66 03/27/23 11:41 Resp 18 03/27/23 11:41 BP 138/76 03/27/23 11:41 Pulse Ox 97 03/27/23 11:41 FiO2 Intake & Output 03/26/23 03/27/23 03/27/23 19:59 06:59 18:59 Intake Total 240 Output Total Balance 240 Intake: Intake, IV Titration Amount Heparin Sod,Pork in 0.45% NaCl 25,000 unit In 0.45 % NaCl 1 250ml.bag @ 12 UNITS/KG/HR 9.798 mls/hr IV .Q24H [facility] Rx#: [id number] Oral 240 Output: Urine Other: # Voids - Exam PHYSICAL EXAMINATION: HEENT: Head is atraumatic, normocephalic. Pupils equal, round. Neck is supple. There is no elevated jugular venous pressure. HEART EXAMINATION: Heart sounds regular, S1 and S2 normal. No murmur or gallop heard. CHEST EXAMINATION: Lungs are clear to auscultation and precussion. No chest wall tenderness is noted on palpation or with deep breathing. ABDOMEN: Soft, nontender. Bowel sounds are heard. No organomegaly noted. EXTREMITIES: 2+ peripheral pulses with no evidence of peripheral edema and no calf tenderness noted. 8 radial puncture site clean dry and intact without ecchymosis or hematoma. NEUROLOGIC patient is awake, alert and oriented x3. . - Labs CBC & Chem 7: 03/26/23 08:30 03/27/23 09:16 Labs: Abnormal Lab Results - Last 24 Hours (Table) 03/27/23 Range/Units 09:16 Sodium 136 L (137-145) mmol/L Glucose 148 H (74-99) mg/dL Assessment and Plan Assessment: Non ST elevation [place] CAD with disease involving the LAD and first diagonal branch Hypertension Hyperlipidemia Nicotine dependence Plan: From cardiology's perspective stable for discharge home today. Continue aspirin 81 mg by mouth daily, Plavix 75 mg by mouth daily, Lipitor 80 mg by mouth daily, lisinopril 5 mg by mouth daily and metoprolol tartrate 25 mg by mouth twice a day. He will follow-up in the office in about a week with Dr. Becker. INDUSTRIAL SALES ENGINEER note has been reviewed, I agree with a documented findings and plan of care. Patient was seen and examined.
--- NOTE | 2023-03-28 13:55 | CC ---
HISTORY OF PRESENT ILLNESS: Estevan Manning is a 57-year-old gentleman who I saw in the emergency room today with chest pain, troponin elevation, non ST elevation DC without EKG changes of significance. He was advised cardiac cath after due discussion. He is a smoker, has hypertension and a cardiac cath 2 years ago, apparently per patient did not reveal significant disease. He was advised the procedure and risks, benefits, options were explained. He understood all details and wished to proceed with the procedure. PROCEDURE NOTE: Under local anesthesia and strict aseptic precautions, a 6-Tajik introducer placed in the right radial artery. Using JL 3.5 and JR4 catheters, I performed coronary angiography and the same right catheter was used to check LV pressure, but LV- gram was not performed. The sheath was taken out, and a Vasc Band applied. Saturation of the fingers of the right hand was about 93%. The patient tolerated the procedure well. There were no complications. CARDIAC CATHETERIZATION FINDINGS: The left ventricular end-diastolic pressure was about 5 mmHg without any gradient across the aortic valve. CORONARY ANGIOGRAPHY FINDINGS: The left ventricular end-diastolic pressure was 5 mmHg. There was no gradient across the aortic valve. CORONARY ANGIOGRAPHY FINDINGS: Right coronary artery, a large dominant vessel, somewhat sluggish flow. No significant disease. Distally it bifurcates into PDA and PLV, which has no significant disease. The dominant RCA, no obstructive disease but sluggish flow overall large vessel. Left main coronary artery: Short, patent vessel. No significant disease. It bifurcates into LAD and circumflex. Left anterior descending coronary artery: This vessel extends along the anterior wall, it gives off septal and diagonal branches. Flow is sluggish in the vessel. In the midportion, there is about a 30% to 40% narrowing, gives off a few septal branch, it is a good-sized diagonal branch in the midportion and other diagonal branch. After the second diagonal branch, the continuation of the LAD is diffusely diseased and also probably towards the apical portion, it is subtotally occluded. The distal LAD is totally occluded. The caliber is less than 1 mm towards the apex. This maybe the culprit lesion. There is also a first diagonal branch that comes off much higher and this is a small diagonal branch and that also has about a 70% to 80% narrowing. The caliber of the vessel is about 1 to 1.5 mm. Left posterior circumflex coronary artery: Technically a nondominant vessel, gives off 2 obtuse marginal branches and continues distally. Minor irregularities. No significant disease. FINAL IMPRESSION: This patient has a right-dominant system. Normal filling pressures. No gradient. The LAD has diffuse disease in the proximal and midportion. There is a 30% to 40% narrowing. First diagonal has a 70% to 80% narrowing, small caliber vessel. Distal LAD towards the apex is subtotally occluded and the 2 diagonal branches that are opacified before subtotal occlusion are free of significant disease. RECOMMENDATIONS: Findings were discussed with the patient. I am recommending aggressive medical therapy with lipid-lowering agents, smoking cessation, aspirin and beta blockers. We will obtain echocardiogram to assess LV function. I will continue IV heparin till tomorrow. The patient will go back to the telemetry unit. I discussed my thoughts in detail with the patient. No family was available. MMODL / IJN: [id number] / MTDD
--- NOTE | 2023-03-28 19:16 | P.DS ---
Providers Date of admission: 03/25/23 12:58 Attending physician: Carrie Salas Consults: 03/24/23 16:00 Consult Physician Urgent Consulting Provider: [facility] Consult Reason/Comments: Chest pain Do you want consulting provider notified?: Yes Primary care physician: Vern Ernandez [facility] Course: Final Diagnosis -Acute non-ST elevation CA, status post cardiac catheterization revealing coronary artery disease of the LAD and first diagonal branch, has been started on aspirin and plavix therapy. -Hypertension currently normotensive patient is on beta elton and lisinopril at this time. -Recent upper respiratory infection was on levofloxacin which has been stopped, symptoms are gone. -Barretts esophagus and duodenal ulcer on protonix -History of tobacco use counseled on cessation Discharge Disposition Patient is stable for discharge home. Patient has been cleard by cardiology. Recommending medical treatment for the LAD and first diag lesion. Patient counseled extensively on smoking cessation. He is taken off the zestoretic and will be discharged on decreased dose of lisinopril. Close follow up with cardiology recommended in [address] RON butcher. Hospital Course Patient is a 57-year-old pleasant male came in with complaints of persistent epigastric abdominal pain patient has this epigastric abdominal pain on and off. EKG showed sinus rhythm with a right bundle branch blocks. Patient chest pain improved but his troponin went up from normal to 0.205.. His chest discomfort is associated with the shortness of breath, diaphoresis and radiating to the left arm. Considering troponin elevation and his symptoms patient was taken for cardiac catheterization. He was started on IV heparin. Patient was recently diagnosed with hypertension and was started on lisinopril hydrochlorothiazide although his blood pressure is low with systolics going down to as low as 105. He underwent cardiac catheterization which reveals' 40% lesion in the LAD and 70-80% lesion and a small caliber first diagonal branch. He's been recommended to maximize medical therapy. Echocardiogram shows normal LV systolic function with mild TR and trace MR. Discussed smoking cessation.He has been monitored overnight on IV heparin which has been discontinued patient is now started on aspirin and plavix combination. He is currently denying chest pain, denying shortness of breath. No nausea vomiting or diarrhea. Lungs are clear S1 S2 auscultated and abdomen soft and nontender. No focal neurological deficits. He will be discharged home. Please see medication reconciliation for a list of current medications. Thank you for allowing us to participate in the care of this patient. The impression and plan of care has been dictated by Samantha Camarena, Nurse Practitioner as directed. Dr. Preet MD I have performed a history and physical examination and medical decision making of this patient, discussed the same with the dictator, and agree with the dictators assessment and plan as written, documented as a scribe. Based on total visit time, I have performed more than 50% of this visit. Patient Condition at Discharge: Stable Plan - Discharge Summary Discharge Rx Participant: No New Discharge Prescriptions: New Nicotine 14Mg/24Hr Patch [Habitrol] 1 patch TRANSDERM DAILY patch Atorvastatin [Lipitor] 80 mg PO DAILY #30 tab Nitroglycerin Sl Tabs [Nitrostat] 0.4 mg SUBLINGUAL Q5M PRN #20 tab PRN Reason: Chest Pain Clopidogrel [Plavix] 75 mg PO DAILY #30 tab Aspirin 81 mg PO DAILY #30 tab Metoprolol Tartrate [Lopressor] 25 mg PO BID #60 tab lisinopriL [Zestril] 5 mg PO DAILY #30 tab Continue Pantoprazole Sodium [Protonix] 40 mg PO BID Albuterol Inhaler [Ventolin Hfa Inhaler] 2 puff INHALATION RT-Q4H PRN PRN Reason: Shortness Of Breath Discontinued predniSONE [Deltasone] 20 mg PO TID Lisinopril-Hctz 10-12.5 mg [Zestoretic 10-12.5] 1 tab PO DAILY Levofloxacin [Levaquin] 500 mg PO DAILY Discharge Medication List Pantoprazole Sodium [Protonix] 40 mg PO BID 11/15/18 [History] Albuterol Inhaler [Ventolin Hfa Inhaler] 2 puff INHALATION RT-Q4H PRN 03/24/23 [History] Aspirin 81 mg PO DAILY #30 tab 03/27/23 [Rx] Atorvastatin [Lipitor] 80 mg PO DAILY #30 tab 03/27/23 [Rx] Clopidogrel [Plavix] 75 mg PO DAILY #30 tab 03/27/23 [Rx] Metoprolol Tartrate [Lopressor] 25 mg PO BID #60 tab 03/27/23 [Rx] Nicotine 14Mg/24Hr Patch [Habitrol] 1 patch TRANSDERM DAILY patch 03/27/23 [Rx] Nitroglycerin Sl Tabs [Nitrostat] 0.4 mg SUBLINGUAL Q5M PRN #20 tab 03/27/23 [Rx] lisinopriL [Zestril] 5 mg PO DAILY #30 tab 03/27/23 [Rx] Follow up Appointment(s)/Referral(s): Jacob Butcher MD [STAFF PHYSICIAN] - 1 Week Vern Ernandez MD [Primary Care Provider] - 1-2 days Patient Instructions/Handouts: *[facility] - After Heart Catheterization - Director Of Home Care Hospice Instructions Discharge Disposition: HOME SELF-CARE
== END 2023-03-27 12:50 | disposition home or self-care (01) | DRG 281 ==
LOC: EC 12:25 → 6NMEDSUR 16:00 → 3SCARD 19:11 → OBSVTOIN 03-25 12:58 → 3SCARD 03-25 13:45
PROVIDERS: ADMIT Hospitalist; ATTEND Hospitalist
PROC: B2111ZZ Fluoroscopy of Multiple Coronary Arteries using Low Osmolar Contrast (ICD-10-PCS; principal; 2023-03-25 13:00)
PROC: 4A023N7 Measurement of Cardiac Sampling and Pressure, Left Heart, Percutaneous Approach (ICD-10-PCS; principal; 2023-03-25 13:00)
DX: I21.4 Non-ST elevation (NSTEMI) myocardial infarction (principal); J44.0 Chronic obstructive pulmonary disease with (acute) lower respiratory infection; F17.210 Nicotine dependence, cigarettes, uncomplicated; Z71.6 Tobacco abuse counseling; I25.10 Atherosclerotic heart disease of native coronary artery without angina pectoris; J40 Bronchitis, not specified as acute or chronic; E78.5 Hyperlipidemia, unspecified; I10 Essential (primary) hypertension; I45.10 Unspecified right bundle-branch block; K22.70 Barrett's esophagus without dysplasia; Z79.01 Long term (current) use of anticoagulants; Z79.899 Other long term (current) drug therapy; Z87.11 Personal history of peptic ulcer disease; Z28.310 Unvaccinated for COVID-19; Z28.21 Immunization not carried out because of patient refusal
CPT/HCPCS: 36415; 71046; 80048; 80053; 80061; 83735; 84484; 85025; 85610; 85730; 87636; 93005; 93306; 93458; 94760; 96365; 99285

== ENCOUNTER 2023-09-18 13:21 | Inpatient (IN) | payer BC ==
[2023-09-18] MEDS: SODIUM CHLORIDE 0.9% 1,000 ML IV STA ×3 (13:37→13:54)
[2023-09-18] MEDS: ONDANSETRON 4 MG/2 ML VIAL IVP STA (13:38)
[2023-09-18] MEDS ORDERED: VANCOMYCIN IV PER PHARMACY 1 EACH MISC MISCELLANE PRN (13:47)
--- NOTE | 2023-09-18 13:48 | ED ---
General Adult HPI - General Chief complaint: Upper Respiratory Infection Stated complaint: fever,cough Time Seen by Provider: 09/18/23 13:24 Source: patient, EMS, RN notes reviewed, old records reviewed Mode of arrival: EMS Limitations: no limitations - History of Present Illness Initial comments: Patient is a 58-year-old male who presents emergency department for weakness, cough x 1 week, fever, as well as a fall at home. States he had a mechanical fall where he just felt too weak and lost his balance and fell down. Did not injure himself. Patient does take Plavix. Denies loss of consciousness. Has been having a productive cough for the last week or so. Unknown that he had a fever. Was found to be 103 F by EMS. Has a remote history of smoking. Presents for further evaluation. States he has had less of an appetite as well. Denies diarrhea or nausea or vomiting. Denies abdominal pain or chest pain. No other acute complaints at this time. - Related Data Home Medications Medication Instructions Recorded Confirmed Albuterol Inhaler [Ventolin Hfa 2 puff INHALATION RT-Q4H PRN 03/24/23 09/18/23 Inhaler] Lisinopril-Hctz 10-12.5 mg 1 tab PO DAILY 09/18/23 09/18/23 [Zestoretic 10-12.5] Omeprazole [PriLOSEC] 40 mg PO DAILY 09/18/23 09/18/23 Previous Rx's Medication Instructions Recorded Atorvastatin [Lipitor] 80 mg PO DAILY #30 tab 03/27/23 Clopidogrel [Plavix] 75 mg PO DAILY #30 tab 03/27/23 Metoprolol Tartrate [Lopressor] 25 mg PO BID #60 tab 03/27/23 Nitroglycerin Sl Tabs [Nitrostat] 0.4 mg SUBLINGUAL Q5M PRN #20 tab 03/27/23 Allergies Allergy/AdvReac Type Severity Reaction Status Date / Time aspirin AdvReac Abdominal Verified 09/18/23 14:54 Pain & Chest Pain ibuprofen [From Motrin] AdvReac Abdominal Verified 09/18/23 14:54 Pain & Chest Pain Review of Systems ROS Statement: Those systems with pertinent positive or pertinent negative responses have been documented in the HPI. Review of Systems: CONST: Endorses fever EYES: Denies blurry vision ENT: Endorses nasal congestion C/V: Denies Chest pain RESP: Endorses cough GI: Denies abdominal pain : Denies dysuria SKIN: Denies rash. MSK: Denies joint pain. NEURO: Denies headache ROS Other: All systems not noted in ROS Statement are negative. Past Medical History Additional Past Medical History / Comment(s): Duodenal ulcer, barrets esophagus History of Any Multi-Drug Resistant Organisms: None Reported Past Surgical History: Cholecystectomy, Hernia Repair Past Psychological History: No Psychological Hx Reported Smoking Status: Current every day smoker Past Alcohol Use History: Occasional Past Drug Use History: None Reported General Exam - General Exam Comments Initial Comments: General: Febrile. Appears in mild distress secondary to increased work of breathing. HEAD: Normal with no signs of head trauma. Negative raccoon eyes. Negative Colon sign. EYES: PERRLA, EOMI, conjunctiva normal, no discharge. Pupils are 3 mm and equal bilaterally. ENT: Hearing grossly intact, normal oropharynx. Dry Mucous membranes. RESPIRATORY: Increased work of breathing. Coarse breath sounds bilaterally. No obvious wheezing. Hypoxia on room air to 88%. Improves on 2 L nasal cannula. C/V: Tachycardic with a regular rhythm. S1 and S2 auscultated, no edema, peripheral pulses 2+ and intact throughout ABD: Abd is soft, nontender, nondistended EXT: Normal range of motion, no obvious deformity SKIN: No rashes or lesions observed on exposed skin. NEURO: Alert and oriented x 4. No focal deficits. GCS of 15. Limitations: no limitations Course Vital Signs 09/18/23 09/18/23 09/18/23 13:24 15:00 15:44 Temperature 103.3 F H 99.7 F H Pulse Rate 131 H 115 H 105 H Respiratory 30 H 34 H Rate Blood Pressure 118/86 106/60 O2 Sat by Pulse 88 L 92 L Oximetry 09/18/23 15:52 Temperature Pulse Rate 100 Respiratory Rate Blood Pressure O2 Sat by Pulse Oximetry Procedures - Sepsis Sepsis Focused Exam #1 Time Sepsis Criteria Met: 13:30 Sepsis Focused Exam Date: 09/18/23 Sepsis Focused Exam Time: 15:52 Sepsis Focused Exam Complete: Yes Vital Signs & RN Notes Reviewed: Yes Capillary Refill: > 2 Seconds: Fingers, Toes Peripheral Pulses: Normal: Radial (R), Radial (L) Skin Color: Normal for Patient Respiratory Exam: normal lung sounds Cardiovascular Exam: tachycardia Medical Decision Making - Medical Decision Making Was pt. sent in by a medical professional or institution (, ANDREA, BARGE WORKER, urgent care, hospital, or halfway...) When possible be specific @ -No Did you speak to anyone other than the patient for history (EMS, parent, family, police, friend...)? What history was obtained from this source @ -No Did you review nursing and triage notes (agree or disagree)? Why? @ -I reviewed and agree with nursing and triage notes Were old charts reviewed (outside hosp., previous admission, EMS record, old EKG, old radiological studies, urgent care reports/EKG's, halfway records)? Report findings @ -Old charts reviewed Differential Diagnosis (chest pain, altered mental status, abdominal pain women, abdominal pain men, vaginal bleeding, weakness, fever, dyspnea, syncope, headache, dizziness, GI bleed, back pain, seizure, CVA, palpatations, mental health, musculoskeletal)? @ -Differential Weakness: Hypoglycemia, shock, sepsis, hyponatremia, anemia, infection, [place], ETOH, adverse medicine reaction, overdose, stroke, this is not meant to be an all-inclusive list. EKG interpreted by me (3pts min.). @ -As above X-rays interpreted by me (1pt min.). @ -Chest x-ray reveals a right-sided pneumonia. Pelvis x-ray negative for any obvious traumatic injury. CT interpreted by me (1pt min.). @ -CT brain, C-spine negative for any obvious traumatic injury. U/S interpreted by me (1pt. min.). @ -None done What testing was considered but not performed or refused? (CT, X-rays, U/S, labs)? Why? @ -None What meds were considered but not given or refused? Why? @ -None Did you discuss the management of the patient with other professionals (professionals i.e. , ANDREA, BARGE WORKER, lab, RT, psych nurse, rn social services, wire mill rover, teacher, property utilization officer, insurance case manager)? Give summary @ -Discussed with admitting physician, [facility] mickey Fraser who was in agreement with the plan and accepted the admission. I called [facility] Dr. Fraser to notify them of the afib with rvr on 2nd ekg after admission. We discussed possible heparinization and deferred this decision to them. They were in agreement this plan. Was smoking cessation discussed for >3mins.? @ -No Was critical care preformed (if so, how long)? @ -Yes, 34 minutes. Were there social determinants of health that impacted care today? How? (Homelessness, low income, unemployed, alcoholism, drug addiction, transportation, low edu. Level, literacy, decrease access to med. care, penitentiary, rehab)? @ -No Was there de-escalation of care discussed even if they declined (Discuss DNR or withdrawal of care, Hospice)? DNR status @ -No What co-morbidities impacted this encounter? (DM, HTN, Smoking, COPD, CAD, Cancer, CVA, ARF, Chemo, Hep., AIDS, mental health diagnosis, sleep apnea, morbid obesity)? @ -None Was patient admitted / discharged? Hospital course, mention meds given and route, prescriptions, significant lab abnormalities, going to OR and other pertinent info. @ -Patient presents febrile, with increased shortness of breath, p.o. intake. Concern is for pneumonia as he is febrile as well. Has had weakness for approximately 1 week. Also had a fall on Plavix. Denies injuring his head or loss of consciousness. Presents in the cervical collar. We will obtain CT brain and C-spine empirically as well as workup for sepsis. He does meet sepsis criteria at 1330. Blood cultures ordered. Urinalysis and urine culture or dered. Patient given a gram of Tylenol for fever, IV Zofran, as well as started on empiric IV antibiotics vancomycin and Zosyn. Patient given a 2 L fluid bolus as well as started on 130 cc an hour of normal saline for the 30 cc/kg requirement. Patient was in agreement this plan. Vital signs remarkable for sinus tachycardia, fever, increased work of breathing and hypoxia on room air.Clear appears extremely dehydrated with dry mucous membranes. EKG shows sinus tachycardia.Chest x-ray reveals a right-sided pneumonia. Pelvis x-ray negative for any traumatic injury. CT brain and C-spine negative for any traumatic injury. Labs consistent with sepsis with a with a white count of 21, lactic acidosis of 3.9. Patient appears to have an acute kidney injury with worsening kidney function, likely secondary to severe dehydration and has underlying sepsis. Troponin is elevated at 0.1 with no acute EKG changes. Also likely secondary to underlying sepsis. Patient given aspirin and we will c ontinue to monitor. Patient is hypomagnesemic and will be given IV supplementation. Patient is hyponatremic and hypochloremic and will also be given supplementation via IV fluids, as this is all likely secondary to dehydration from his sepsis. I updated the patient. Cervical collar removed. Fevers improved. Vital signs are stabilizing. He will be admitted to the hospital at this time. He was in agreement this plan. Nephrology consulted, pulmonology consulted, cardiology consulted. I spoke with Dr. Fraser of [facility] who accepted the admission. Patient's heart rate began showing signs of atrial fibrillation on the monitor. Repeat EKG does support this as well. Currently rate controlled his heart rate is between 95 and 110. He is already on metoprolol. This was after patient was admitted and I called [facility] to notify them of the update. We discussed possible heparinization and deferred this decision to them. They were in agreement this plan. Undiagnosed new problem with uncertain prognosis? @ -No Drug Therapy requiring intensive monitoring for toxicity (Heparin, Nitro, Insulin, Cardizem)? @ -No Were any procedures done? @ -No Diagnosis/symptom? @ -Sepsis secondary to pneumonia, dehydration, hypoxic respiratory failure, acute kidney injury, hypomagnesemia, hypokalemia, new onset atrial fibrillation likely secondary to underlying infection Acute, or Chronic, or Acute on Chronic? @ -Acute Uncomplicated (without systemic symptoms) or Complicated (systemic symptoms)? @ -Complicated Side effects of treatment? @ -None Exacerbation, Progression, or Severe Exacerbation] @ -No Poses a threat to life or bodily function? @ -Yes - Lab Data Result diagrams: 09/18/23 13:59 09/18/23 13:59 Lab Results 09/18/23 09/18/23 09/18/23 Range/Units 13:59 13:59 13:59 WBC 21.2 H (3.8-10.6) k/uL RBC 4.04 L (4.30-5.90) m/uL Hgb 13.0 (13.0-17.5) gm/dL Hct 36.6 L (39.0-53.0) % MCV 90.7 (80.0-100.0) fL MCH 32.2 (25.0-35.0) pg MCHC 35.5 (31.0-37.0) g/dL RDW 14.0 (11.5-15.5) % Plt Count 193 (150-450) k/uL MPV 10.4 Neutrophils % 96 % Lymphocytes % 2 % Monocytes % 2 % Eosinophils % 1 % Basophils % 0 % Neutrophils # 20.3 H (1.3-7.7) k/uL Lymphocytes # 0.3 L (1.0-4.8) k/uL Monocytes # 0.4 (0-1.0) k/uL Eosinophils # 0.1 (0-0.7) k/uL Basophils # 0.0 (0-0.2) k/uL PT 11.9 (10.0-12.5) sec INR 1.1 (<1.2) APTT 32.0 H (22.0-30.0) sec VBG pH (7.31-7.41) VBG pCO2 (37-51) mmHg VBG HCO3 (24-28) mmol/L Sodium 122 L (137-145) mmol/L Potassium 3.4 L (3.5-5.1) mmol/L Chloride 84 L (98-107) mmol/L Carbon Dioxide 18 L (22-30) mmol/L Anion Gap 20 mmol/L BUN 51 H (9-20) mg/dL Creatinine 5.94 H (0.66-1.25) mg/dL Est GFR (CKD-EPI)AfAm 11 (>60 ml/min/1.73 sqM) Est GFR (CKD-EPI)NonAf 9 (>60 ml/min/1.73 sqM) Glucose 94 (74-99) mg/dL Plasma Lactic Acid Pino (0.7-2.0) mmol/L Calcium 7.2 L (8.4-10.2) mg/dL Magnesium 0.9 L* (1.6-2.3) mg/dL Total Bilirubin 1.8 H (0.2-1.3) mg/dL AST 110 H (17-59) U/L ALT 53 H (4-49) U/L Alkaline Phosphatase 105 (38-126) U/L Troponin I (0.000-0.034) ng/mL Total Protein 6.3 (6.3-8.2) g/dL Albumin 3.6 (3.5-5.0) g/dL Influenza Type A (PCR) (Not Detectd) Influenza Type B (PCR) (Not Detectd) RSV (PCR) (Not Detectd) SARS-CoV-2 (PCR) (Not Detectd) 09/18/23 09/18/23 09/18/23 Range/Units 13:59 13:59 13:59 WBC (3.8-10.6) k/uL RBC (4.30-5.90) m/uL Hgb (13.0-17.5) gm/dL Hct (39.0-53.0) % MCV (80.0-100.0) fL MCH (25.0-35.0) pg MCHC (31.0-37.0) g/dL RDW (11.5-15.5) % Plt Count (150-450) k/uL MPV Neutrophils % % Lymphocytes % % Monocytes % % Eosinophils % % Basophils % % Neutrophils # (1.3-7.7) k/uL Lymphocytes # (1.0-4.8) k/uL Monocytes # (0-1.0) k/uL Eosinophils # (0-0.7) k/uL Basophils # (0-0.2) k/uL PT (10.0-12.5) sec INR (<1.2) APTT (22.0-30.0) sec VBG pH 7.41 (7.31-7.41) VBG pCO2 33 L (37-51) mmHg VBG HCO3 21 L (24-28) mmol/L Sodium (137-145) mmol/L Potassium (3.5-5.1) mmol/L Chloride (98-107) mmol/L Carbon Dioxide (22-30) mmol/L Anion Gap mmol/L BUN (9-20) mg/dL Creatinine (0.66-1.25) mg/dL Est GFR (CKD-EPI)AfAm (>60 ml/min/1.73 sqM) Est GFR (CKD-EPI)NonAf (>60 ml/min/1.73 sqM) Glucose (74-99) mg/dL Plasma Lactic Acid Pino 3.9 H* (0.7-2.0) mmol/L Calcium (8.4-10.2) mg/dL Magnesium (1.6-2.3) mg/dL Total Bilirubin (0.2-1.3) mg/dL AST (17-59) U/L ALT (4-49) U/L Alkaline Phosphatase (38-126) U/L Troponin I 0.102 H* (0.000-0.034) ng/mL Total Protein (6.3-8.2) g/dL Albumin (3.5-5.0) g/dL Influenza Type A (PCR) (Not Detectd) Influenza Type B (PCR) (Not Detectd) RSV (PCR) (Not Detectd) SARS-CoV-2 (PCR) (Not Detectd) 09/18/23 Range/Units 14:05 WBC (3.8-10.6) k/uL RBC (4.30-5.90) m/uL Hgb (13.0-17.5) gm/dL Hct (39.0-53.0) % MCV (80.0-100.0) fL MCH (25.0-35.0) pg MCHC (31.0-37.0) g/dL RDW (11.5-15.5) % Plt Count (150-450) k/uL MPV Neutrophils % % Lymphocytes % % Monocytes % % Eosinophils % % Basophils % % Neutrophils # (1.3-7.7) k/uL Lymphocytes # (1.0-4.8) k/uL Monocytes # (0-1.0) k/uL Eosinophils # (0-0.7) k/uL Basophils # (0-0.2) k/uL PT (10.0-12.5) sec INR (<1.2) APTT (22.0-30.0) sec VBG pH (7.31-7.41) VBG pCO2 (37-51) mmHg VBG HCO3 (24-28) mmol/L Sodium (137-145) mmol/L Potassium (3.5-5.1) mmol/L Chloride (98-107) mmol/L Carbon Dioxide (22-30) mmol/L Anion Gap mmol/L BUN (9-20) mg/dL Creatinine (0.66-1.25) mg/dL Est GFR (CKD-EPI)AfAm (>60 ml/min/1.73 sqM) Est GFR (CKD-EPI)NonAf (>60 ml/min/1.73 sqM) Glucose (74-99) mg/dL Plasma Lactic Acid Pino (0.7-2.0) mmol/L Calcium (8.4-10.2) mg/dL Magnesium (1.6-2.3) mg/dL Total Bilirubin (0.2-1.3) mg/dL AST (17-59) U/L ALT (4-49) U/L Alkaline Phosphatase (38-126) U/L Troponin I (0.000-0.034) ng/mL Total Protein (6.3-8.2) g/dL Albumin (3.5-5.0) g/dL Influenza Type A (PCR) Not Detected (Not Detectd) Influenza Type B (PCR) Not Detected (Not Detectd) RSV (PCR) Not Detected (Not Detectd) SARS-CoV-2 (PCR) Not Detected (Not Detectd) - EKG Data -: EKG Interpreted by Me EKG Comments: 12-lead Electrocardiogram Interpretation Note EKG was reviewed and interpreted by myself. 12-lead ECG performed at 1327 is interpreted by me as revealing sinus tachycardia at a rate of 132 beats per minute. [place] is normal. AL interval is 127 ms, QRS duration is 145 ms, QTc is 415 ms. Right bundle branch block morphology.. There were no ST or T wave abnormalities to suggest myocardial ischemia or injury. R wave progression acr oss the precordium was satisfactory. By my interpretation this EKG is non- diagnostic for acute ischemia. 12-lead Electrocardiogram Interpretation Note EKG was reviewed and interpreted by myself. 12-lead ECG performed at 1611 is interpreted by me as revealing A-fib with RVR at a rate of 108 beats per minute. [place] is normal. QRS duration is 153 ms, QTc is 425 ms.. There were no ST or T wave abnormalities to suggest myocardial ischemia or injury. R wave progression across the precordium was satisfactory. By my interpretation this EKG is non- diagnostic for acute ischemia. Critical Care Time Critical Care Time: Yes Total Critical Care Time: 34 Disposition Clinical Impression: Sepsis, ROBERTO (acute kidney injury), Hypomagnesemia, Elevated troponin, Pneumonia, Hyponatremia, Dehydration, Fall, Hypoxic respiratory failure, Weakness Disposition: ADMITTED IP TO THIS HOSP Condition: Serious Time of Disposition: 15:25
[2023-09-18] MEDS: ACETAMINOPHEN TAB 500 MG TAB PO STA (13:49)
[2023-09-18] MEDS: PIPERACILLIN-TAZOBACTAM 3.375 GM in SODIUM CHLORIDE 0.9% 100 ML IVPB STA (13:53)
--- NOTE | 2023-09-18 14:08 | XR ---
EXAMINATION TYPE: XR chest 1V portable DATE OF EXAM: 09/18/2023 2:04 PM CLINICAL INDICATION:Male, 58 years old with history of cough; [facility] COMPARISON: 03/24/2023 TECHNIQUE: XR chest 1V portable Frontal view of the chest. FINDINGS: Lungs/Pleura: Right mid and lower lung airspace opacities. There is no evidence of pleural effusion, left focal consolidation, or pneumothorax. Pulmonary vascularity: Unremarkable. Heart/mediastinum: Cardiomediastinal silhouette is unremarkable. Musculoskeletal: No acute osseous pathology. IMPRESSION: Right mid and lower lung airspace opacities correlate for pneumonia.
--- NOTE | 2023-09-18 14:12 | XR ---
EXAMINATION TYPE: XR pelvis AP view DATE OF EXAM: 09/18/2023 2:04 PM CLINICAL INDICATION:Male, 58 years old with history of fall; COMPARISON: None TECHNIQUE: The pelvis was examined in a single projection. FINDINGS: There is no evidence of fracture or dislocation. There is no soft tissue abnormality. No abnormal ca lcifications are present. The spine appears intact. The hips appear intact. Osteophyte formation of t he superior acetabulum bilaterally with mild joint space narrowing. IMPRESSION: 1. No acute osseous pathology. 2. Mild to moderate degeneration changes of the hip.
[2023-09-18 14:22] LABS: VBG PH 7.41 (7.31-7.41)
[2023-09-18 14:30] LABS: INR 1.1 (<1.2); Prothrombin Time 11.9 sec (10.0-12.5)
[2023-09-18 14:35] LABS: ALT 53 U/L (4-49); AST 110 U/L (17-59); African American GFR (CKD) 11 (>60 ml/min/1.73 sqM); Albumin 3.6 g/dL (3.5-5.0); Alkaline Phosphatase 105 U/L (38-126); Anion Gap 20 mmol/L; Blood Urea Nitrogen 51 mg/dL (9-20); Calcium 7.2 mg/dL (8.4-10.2); Carbon Dioxide 18 mmol/L (22-30); Chloride 84 mmol/L (98-107); Glucose 94 mg/dL (74-99); Non-African American GFR(CKD) 9 (>60 ml/min/1.73 sqM); Potassium 3.4 mmol/L (3.5-5.1); Sodium 122 mmol/L (137-145); Total Bilirubin 1.8 mg/dL (0.2-1.3); Total Protein 6.3 g/dL (6.3-8.2)
[2023-09-18 14:38] LABS: Basophils % (A) 0 %; Eosinophils # (A) 0.1 k/uL (0-0.7); Eosinophils % (A) 1 %; HCT 36.6 % (39.0-53.0); Lymphocytes # (A) 0.3 k/uL (1.0-4.8); Lymphocytes % (A) 2 %; MCH 32.2 pg (25.0-35.0); MCHC 35.5 g/dL (31.0-37.0); MCV 90.7 fL (80.0-100.0); Mean Platelet Volume 10.4; Monocytes # (A) 0.4 k/uL (0-1.0); Monocytes % (A) 2 %; Neutrophils # (A) 20.3 k/uL (1.3-7.7); Neutrophils % (A) 96 %; Platelet Count 193 k/uL (150-450); RBC 4.04 m/uL (4.30-5.90); WBC 21.2 k/uL (3.8-10.6)
[2023-09-18] MEDS: VANCOMYCIN 1,500 MG in SODIUM CHLORIDE 0.9% 500 ML 500 ML IVPB ONE (14:45)
[2023-09-18 14:48] LABS: Magnesium 0.9 mg/dL (1.6-2.3)
--- NOTE | 2023-09-18 15:09 | CT ---
EXAMINATION TYPE: CT brain cspine wo con CT DLP: 1460.2 mGycm, Automated exposure control for dose reduction was used. DATE OF EXAM: 09/18/2023 2:25 PM COMPARISON: None. CLINICAL INDICATION:Male, 58 years old with history of weakness; Patient may have fall, patient denie s fall. TECHNIQUE: Brain: Multiple axial CT images of the brain were obtained without IV contrast. Cspine: Axial CT images from the skull base to the inferior aspect of T2 we obtained without intraven ous contrast. Coronal and sagittal reformatted images were also reviewed. FINDINGS: Brain: Extra-axial spaces: No abnormal extra-axial fluid collections. Ventricular system: Within normal limits Cerebral parenchyma: No acute intraparenchymal hemorrhage or mass effect. The crockett-white junction is well differentiated. Cerebellum: Unremarkable. Mass effect: No evidence of midline shift. Intracranial vasculature: unremarkable Soft tissues: Normal. Calvarium/osseous structures: No depressed skull fracture. Paranasal sinuses and mastoid air cells: Clear. Visualized orbits: Orbital contents are intact. Cervical spine: Fracture: None. Osseous structures: Multilevel degenerative disc disease changes with endplate spurring and disc oste ophyte complex's. Vertebral alignment: Within normal limits. Spinal canal/Neural Foramina: No evidence of significant spinal canal narrowing. No evidence for sign ificant neural foraminal stenosis. Neck soft tissues: Prevertebral soft tissues are within normal limits. Other: The airway is patent. The lung apices are clear. IMPRESSION: 1. No acute intracranial process. 2. No evidence of cervical spine fracture. 3. Mild multilevel degenerative disc disease.
[2023-09-18] MEDS: MAGNESIUM SULFATE-D5W PMX 1 GM in DEXTROSE/WATER 1 100ML.BAG IVPB SCH (15:33)
[2023-09-18] MEDS ORDERED: NALOXONE 0.4 MG/ML 1 ML VIAL IV PRN (15:39)
[2023-09-18] MEDS ORDERED: IBUPROFEN 400 MG TAB PO PRN (15:39)
[2023-09-18] MEDS: IPRATROPIUM-ALBUTEROL 3 ML NEB INHALATION STA (15:43)
[2023-09-18] MEDS ORDERED: ALBUTEROL NEBULIZED 2.5 MG/3 ML INHALATION PRN (16:04)
--- NOTE | 2023-09-18 16:48 | P.HPIM ---
History of Present Illness H&P Date: 09/18/23 Patient is a 58-year-old male with history of hypertension, dyslipidemia, coronary artery disease presenting with shortness of breath. He claims that he started feeling sick about 4 days ago when he noticed increased weakness, and some lightheadedness, had minimal shortness of breath, some productive sputum. He denies any significant fevers or chills. He waited for 4 days trying to [facility], and then today because he was feeling a lot worse he decided come to the hospital. He denies any sick contacts or travel history. He denies any abdominal pain, but does have some nausea, no diarrhea or constipation, no urinary complaints. In the ED, temperature was 103.3, pulse 131, respiratory rate 30, blood pressure 118/86, saturating 88% on room air. WBC 21.2, hemoglobin 13, pH 7.41, pCO2 33, sodium 122, potassium 3.4, bicarb 18, anion gap 20, creatinine 5.94, lactic acid 3.9, magnesium 0.9, total bili 1.8, AST 110, ALT 53, ALP 105, troponin 0.102. Respiratory viral panel negative. Chest x-ray shows multifocal pneumonia right lower lobe greater than left. EKG shows sinus tachycardia with right bundle you block. Pelvic x-ray shows no acute process. Head CT shows no acute process. Pertinent positives and negatives as discussed in HPI, a complete review of syst ems was performed and all other systems are negative. Patient seen and examined at bedside. Vital signs reviewed General: nontoxic, in mild distress, appears at stated age Derm: warm, dry Head: atraumatic, normocephalic, symmetric Eyes: EOMI, no lid lag, anicteric sclera, pupils equal round reactive to light ENT: Nose and ears atraumatic Neck: No thyromegaly, supple Mouth: no lip lesion, dry membranes moist Cardiovascular: S1S2 tachycardic, reg, no murmur, no edema Lungs: Bilateral rhonchi, greater on right, no wheeze, no accessory muscle use, supplemental oxygen Abdominal: soft, obese abdomen, nontender to palpation, no guarding, no appreciable organomegaly Ext: no gross muscle atrophy, muscle strength muscle strength 5 out of 5 in all 4 extremities, no contractures Neuro: CN II-XII grossly intact Psych: Alert, oriented, appropriate affect Assessment/Plan: Severe sepsis secondary to multifocal pneumonia Severe leukocytosis Hyponatremia Acute kidney injury Metabolic acidosis Lactic acidosis Hypomagnesemia Transaminitis Elevated troponin, likely nonischemic - Started on vancomycin IV, and IV Zosyn 3.375 g every 8 hours, monitor renal function, also started on IV azithromycin - DuoNebs every 4 hours scheduled, Solu-Medrol 40 every 8 hours - Blood cultures pending - Received 2 L of normal saline, on normal saline at 130 cc an hour, monitor sodium - Received IV magnesium in the ED - Nephrology consulted - Pulmonology and cardiology consulted - On telemetry - Hold lisinopril and hydrochlorothiazide The patient is admitted with an anticipated greater than 2 midnight stay as inpatient status for evaluation of severe sepsis. Surrogate decision-maker:spouse CODE STATUS: Full code DVT prophylaxis: Subcu heparin Anticipated discharge date: Pending clinical course Anticipated discharge place: Pending clinical course A total of 55 minutes was spent on the care of this complex patient more than 50% of the time was spent in counseling and care coordination. Past Medical History Additional Past Medical History / Comment(s): Duodenal ulcer, barrets esophagus History of Any Multi-Drug Resistant Organisms: None Reported Past Surgical History: Cholecystectomy, Hernia Repair Past Psychological History: No Psychological Hx Reported Smoking Status: Current every day smoker Past Alcohol Use History: Occasional Past Drug Use History: None Reported Medications and Allergies Home Medications Medication Instructions Recorded Confirmed Type Albuterol Inhaler [Ventolin Hfa 2 puff INHALATION RT-Q4H PRN 03/24/23 09/18/23 H istory Inhaler] Atorvastatin [Lipitor] 80 mg PO DAILY #30 tab 03/27/23 09/18/23 Rx Clopidogrel [Plavix] 75 mg PO DAILY #30 tab 03/27/23 09/18/23 Rx Metoprolol Tartrate [Lopressor] 25 mg PO BID #60 tab 03/27/23 09/18/23 Rx Nitroglycerin Sl Tabs [Nitrostat] 0.4 mg SUBLINGUAL Q5M PRN #20 tab 03/27/23 09/18/23 Rx Lisinopril-Hctz 10-12.5 mg 1 tab PO DAILY 09/18/23 09/18/23 History [Zestoretic 10-12.5] Omeprazole [PriLOSEC] 40 mg PO DAILY 09/18/23 09/18/23 History Allergies Allergy/AdvReac Type Severity Reaction Status Date / Time aspirin AdvReac Abdominal Verified 09/18/23 14:54 Pain & Chest Pain ibuprofen [From Motrin] AdvReac Abdominal Verified 09/18/23 14:54 Pain & Chest Pain Physical Exam Vitals: Vital Signs Temp Pulse Resp BP Pulse Ox 09/18/23 15:52 100 09/18/23 15:44 105 H 09/18/23 15:00 99.7 F H 115 H 34 H 106/60 92 L 09/18/23 13:24 103.3 F H 131 H 30 H 118/86 88 L Intake and Output 09/18/23 09/18/23 09/18/23 06:59 14:59 22:59 Other: Weight 83.915 kg Results CBC & Chem 7: 09/18/23 13:59 09/18/23 13:59 Labs: Abnormal Lab Results - Last 24 Hours (Table) 09/18/23 09/18/23 09/18/23 Range/Units 13:59 13:59 13:59 WBC 21.2 H (3.8-10.6) k/uL RBC 4.04 L (4.30-5.90) m/uL Hct 36.6 L (39.0-53.0) % Neutrophils # 20.3 H (1.3-7.7) k/uL Lymphocytes # 0.3 L (1.0-4.8) k/uL APTT 32.0 H (22.0-30.0) sec VBG pCO2 (37-51) mmHg VBG HCO3 (24-28) mmol/L Sodium 122 L (137-145) mmol/L Potassium 3.4 L (3.5-5.1) mmol/L Chloride 84 L (98-107) mmol/L Carbon Dioxide 18 L (22-30) mmol/L BUN 51 H (9-20) mg/dL Creatinine 5.94 H (0.66-1.25) mg/dL Plasma Lactic Acid Pino (0.7-2.0) mmol/L Calcium 7.2 L (8.4-10.2) mg/dL Magnesium 0.9 L* (1.6-2.3) mg/dL Total Bilirubin 1.8 H (0.2-1.3) mg/dL AST 110 H (17-59) U/L ALT 53 H (4-49) U/L Troponin I (0.000-0.034) ng/mL 09/18/23 09/18/23 09/18/23 Range/Units 13:59 13:59 13:59 WBC (3.8-10.6) k/uL RBC (4.30-5.90) m/uL Hct (39.0-53.0) % Neutrophils # (1.3-7.7) k/uL Lymphocytes # (1.0-4.8) k/uL APTT (22.0-30.0) sec VBG pCO2 33 L (37-51) mmHg VBG HCO3 21 L (24-28) mmol/L Sodium (137-145) mmol/L Potassium (3.5-5.1) mmol/L Chloride (98-107) mmol/L Carbon Dioxide (22-30) mmol/L BUN (9-20) mg/dL Creatinine (0.66-1.25) mg/dL Plasma Lactic Acid Pino 3.9 H* (0.7-2.0) mmol/L Calcium (8.4-10.2) mg/dL Magnesium (1.6-2.3) mg/dL Total Bilirubin (0.2-1.3) mg/dL AST (17-59) U/L ALT (4-49) U/L Troponin I 0.102 H* (0.000-0.034) ng/mL
[2023-09-18] MEDS: AZITHROMYCIN 500 MG in SODIUM CHLORIDE 0.9% 250 ML IVPB SCH (17:47)
[2023-09-18] MEDS: ASPIRIN 81 MG PO STA (17:50)
[2023-09-18] MEDS: methylPREDNISolone SOD SUCCI 40 MG/ML 1 ML VIAL IV STA (17:51)
[2023-09-18] MEDS: HEPARIN SODIUM,PORCINE 5,000 UNIT/ML 1 ML VIAL SQ SCH (17:52)
[2023-09-18] MEDS: POTASSIUM CHLORIDE ER 20 MEQ TAB.ER PO STA (17:54)
[2023-09-18] MEDS: IPRATROPIUM-ALBUTEROL 3 ML NEB INHALATION SCH (18:51)
[2023-09-18] MEDS: ACETAMINOPHEN TAB 325 MG TAB PO PRN (21:01)
[2023-09-18] MEDS: METOPROLOL TARTRATE 25 MG TAB PO SCH (21:02)
[2023-09-18 21:13] LABS: African American GFR (CKD) 11 (>60 ml/min/1.73 sqM); Anion Gap 19 mmol/L; Blood Urea Nitrogen 53 mg/dL (9-20); Calcium 6.6 mg/dL (8.4-10.2); Carbon Dioxide 14 mmol/L (22-30); Chloride 90 mmol/L (98-107); Glucose 97 mg/dL (74-99); Magnesium 1.6 mg/dL (1.6-2.3); Non-African American GFR(CKD) 9 (>60 ml/min/1.73 sqM); Potassium 3.3 mmol/L (3.5-5.1); Sodium 123 mmol/L (137-145)
[2023-09-18] MEDS: PIPERACILLIN-TAZOBACTAM 3.375 GM in SODIUM CHLORIDE 0.9% 100 ML IVPB SCH (23:56)
[2023-09-18] MEDS: methylPREDNISolone SOD SUCCI 40 MG/ML 1 ML VIAL IV SCH (23:58)
[2023-09-19] MEDS ORDERED: NON FORMULARY DRUG IV SCH (00:32)
[2023-09-19] MEDS: MAGNESIUM SULFATE-D5W PMX 1 GM in DEXTROSE/WATER 1 100ML.BAG IVPB SCH (01:01)
[2023-09-19] MEDS: POTASSIUM CHLORIDE 10 MEQ in WATER FOR INJECTION 1 100ML.BAG IVPB SCH (01:27)
[2023-09-19] MEDS: SODIUM CHLORIDE 0.9% 1,000 ML with SODIUM BICARB (1 MEQ/ML) 150 ML IV SCH (02:51)
[2023-09-19] MEDS: DEXTROSE 5% IN WATER 1,000 ML with SODIUM BICARB (1 MEQ/ML) 150 ML IV SCH (02:52)
[2023-09-19] MEDS: LORazepam 2 MG/ML INJ IV STA (04:46)
[2023-09-19] MEDS: LORazepam 2 MG/ML INJ IV ONE (05:14)
--- NOTE | 2023-09-19 05:37 | P.CNPUL ---
History of Present Illness Consult date: 09/19/23 Requesting physician: Matteo Campbell Reason for consult: pneumonia Chief complaint: Shortness of breath, cough, fall History of present illness: Patient is a 58-year-old white male with past medical history significant for hypertension, hyperlipidemia, nonocclusive coronary artery disease, and current everyday smoker. I am seeing this patient in the emergency room, after he presented yesterday afternoon with a chief complaint of generalized weakness, fall, shortness of breath and a productive cough. Patient states that starting Tuesday he developed a productive cough with yellow to green sputum. He progressively became more short of breath over the following days. Denies chest pain or hemoptysis. He noticed that he started developing fevers 2 nights ago. He has progressively become more weak. He has had reduced appetite and has not been drinking many oral fluids. He has been having nausea without vomiting. He had a fall yesterday. Denies hitting his head. He states that he more so lowered himself to the floor. States that he should have came in sooner. He is currently sitting in bed, on 3 L/min nasal cannula, he appears dyspneic. He is tachypneic with accessory muscle use. He was noted to be febrile on arrival with a Tmax of 103.3 F, which has been treated with Tylenol.. Chest x-ray demonstrates bilateral infiltrates, greater on the right mid and lower lobes. CBC on arrival demonstrates some leukocytosis with a WBC count of 21.2, otherwise unremarkable. BMP from yesterday has multiple electrolyte abnormalities including: Sodium 123, potassium 3.3, chloride 90, serum bicarb 14, BUN 53, creatinine 6.05, glucose 97. Lactic acid level was elevated at 3.9 and is down to 1.6. Magnesium level 0.9. LFTs mildly elevated. Total bili 1.8. Troponins elevated at 0.102, 0.116, and 0.132 respectively. Negative for influenza, RSV, COVID. Patient has been covered on broad-spectrum antibiotics including vancomycin, Zosyn, and azithromycin. Patient's current respiratory status is labile. Review of Systems REVIEW OF SYSTEMS: CONSTITUTIONAL: Denies any recent significant weight loss or weight gain. Admits generalized weakness and malaise EYES: Denies change in vision. EARS, NOSE, MOUTH, THROAT: Denies headaches, denies sore throat. CARDIOVASCULAR: Denies chest pain, palpitations or syncopal episodes. RESPIRATORY: See HPI GASTROINTESTINAL: Denies abdominal pain, or diarrhea. Admits reduced appetite and nausea. No vomiting. GENITOURINARY: Denies hematuria, denies infections. MUSKULOSKELETAL: Denies pain, denies swelling. INTEGUMENTARY: Denies rash, denies eczema. NEUROLOGICAL: Denies recent memory loss, no recent seizure activity. PSYCHIATRIC: Denies anxiety, denies depression. HEMATOLOGIC/LYMPHATIC: Denies anemia, denies enlarged lymph node Past Medical History Additional Past Medical History / Comment(s): Duodenal ulcer, barrets esophagus History of Any Multi-Drug Resistant Organisms: None Reported Past Surgical History: Cholecystectomy, Hernia Repair Past Psychological History: No Psychological Hx Reported Smoking Status: Current every day smoker Past Alcohol Use History: Occasional Past Drug Use History: None Reported Medications and Allergies Home Medications Medication Instructions Recorded Confirmed Type Albuterol Inhaler [Ventolin Hfa 2 puff INHALATION RT-Q4H PRN 03/24/23 09/18/23 History Inhaler] Atorvastatin [Lipitor] 80 mg PO DAILY #30 tab 03/27/23 09/18/23 Rx Clopidogrel [Plavix] 75 mg PO DAILY #30 tab 03/27/23 09/18/23 Rx Metoprolol Tartrate [Lopressor] 25 mg PO BID #60 tab 03/27/23 09/18/23 Rx Nitroglycerin Sl Tabs [Nitrostat] 0.4 mg SUBLINGUAL Q5M PRN #20 tab 03/27/23 09/18/23 Rx Lisinopril-Hctz 10-12.5 mg 1 tab PO DAILY 09/18/23 09/18/23 History [Zestoretic 10-12.5] Omeprazole [PriLOSEC] 40 mg PO DAILY 09/18/23 09/18/23 History Allergies Allergy/AdvReac Type Severity Reaction Status Date / Time aspirin AdvReac Abdominal Verified 09/18/23 14:54 Pain & Chest Pain ibuprofen [From Motrin] AdvReac Abdominal Verified 09/18/23 14:54 Pain & Chest Pain Physical Exam Vitals: Vital Signs Temp Pulse Pulse Resp BP BP Pulse Ox 09/19/23 04:51 09/19/23 04:28 09/19/23 04:19 100.1 F H 09/19/23 03:58 113 H 09/19/23 03:45 111 H 09/19/23 03:39 102.0 F H 112 H 32 H 105/74 96 09/19/23 02:00 108 H 24 104/68 97 09/18/23 23:49 105 H 09/18/23 23:39 104 H 09/18/23 22:47 98 18 103/75 94 L 09/18/23 21:43 99.4 F 100 18 106/70 94 L 09/18/23 21:42 18 09/18/23 20:00 100.3 F H 102 H 22 102/60 92 L 09/18/23 19:30 103 H 24 94/60 93 L 09/18/23 19:00 98.0 F 105 H 24 104/63 94 L 09/18/23 18:59 107 H 09/18/23 18:51 108 H 09/18/23 17:00 109 H 23 105/66 94 L 09/18/23 16:30 110 H 27 H 111/67 94 L 09/18/23 16:00 105 H 28 H 109/47 95 09/18/23 15:52 100 09/18/23 15:44 105 H 09/18/23 15:30 107 H 26 H 109/95 92 L 09/18/23 15:00 99.7 F H 114 H 24 103/70 92 L 09/18/23 14:30 125 H 26 H 127/48 92 L 09/18/23 13:24 103.3 F H 131 H 30 H 118/86 88 L FiO2 09/19/23 04:51 100 09/19/23 04:28 100 09/19/23 04:19 09/19/23 03:58 09/19/23 03:45 09/19/23 03:39 09/19/23 02:00 09/18/23 23:49 09/18/23 23:39 09/18/23 22:47 09/18/23 21:43 09/18/23 21:42 09/18/23 20:00 09/18/23 19:30 09/18/23 19:00 09/18/23 18:59 09/18/23 18:51 09/18/23 17:00 09/18/23 16:30 09/18/23 16:00 09/18/23 15:52 09/18/23 15:44 09/18/23 15:30 09/18/23 15:00 09/18/23 14:30 09/18/23 13:24 Intake and Output 09/18/23 09/18/23 09/19/23 14:59 22:59 06:59 Other: Weight 83.915 kg GENERAL EXAM: Alert, 58-year-old white male, appears dyspneic, talks in phrases, tachypneic HEAD: Normocephalic and atraumatic EYES: Normal reaction of pupils, equal size. NOSE: Clear with pink turbinates. THROAT: No erythema or exudates. NECK: No masses, no JVD. CHEST: No chest wall deformity. LUNGS: Equal air entry with diffuse rhonchi and expiratory wheezing with bibasi lar inspiratory crackles. On 3 L/min nasal cannula. SpO2 94%. CVS: S1 and S2 normal with no audible murmur, regular rhythm. No extra heart sounds ABDOMEN: No hepatosplenomegaly, active bowel sounds, no guarding or rigidity. SPINE: No scoliosis or deformity SKIN: No rashes CENTRAL NERVOUS SYSTEM: No focal deficits, tone is normal in all 4 extremities. EXTREMITIES: There is no peripheral edema, clubbing, or cyanosis. Peripheral pulses are intact. Results - Laboratory Findings CBC and BMP: 09/19/23 04:38 09/19/23 10:55 PT/INR, D-dimer PT 11.9 sec (10.0-12.5) 09/18/23 13:59 INR 1.1 (<1.2) 09/18/23 13:59 Abnormal lab findings: Abnormal Labs 09/18/23 09/18/23 09/18/23 13:59 13:59 13:59 WBC 21.2 H RBC 4.04 L Hct 36.6 L Neutrophils # 20.3 H Lymphocytes # 0.3 L APTT 32.0 H VBG pCO2 VBG HCO3 Sodium 122 L Potassium 3.4 L Chloride 84 L Carbon Dioxide 18 L BUN 51 H Creatinine 5.94 H Plasma Lactic Acid Pino Calcium 7.2 L Magnesium 0.9 L* Total Bilirubin 1.8 H AST 110 H ALT 53 H Troponin I 09/18/23 09/18/23 09/18/23 13:59 13:59 13:59 WBC RBC Hct Neutrophils # Lymphocytes # APTT VBG pCO2 33 L VBG HCO3 21 L Sodium Potassium Chloride Carbon Dioxide BUN Creatinine Plasma Lactic Acid Pino 3.9 H* Calcium Magnesium Total Bilirubin AST ALT Troponin I 0.102 H* 09/18/23 09/18/23 09/18/23 17:08 20:29 20:29 WBC RBC Hct Neutrophils # Lymphocytes # APTT VBG pCO2 VBG HCO3 Sodium 123 L Potassium 3.3 L Chloride 90 L Carbon Dioxide 14 L BUN 53 H Creatinine 6.05 H Plasma Lactic Acid Pino Calcium 6.6 L Magnesium Total Bilirubin AST ALT Troponin I 0.116 H* 0.132 H* - Diagnostic Findings Chest x-ray: image reviewed Assessment and Plan Assessment: Bilateral community-acquired pneumonia and sepsis, Chest x-ray demonstrates bilateral infiltrates, greater on the right mid and lower lobes. Negative for influenza, RSV, COVID Suspect acute COPD exacerbation, secondary to above Acute hypoxemic respiratory failure, secondary to above Severe dehydration Multiple electrolyte abnormalities including hyponatremia, hypokalemia, severe hypomagnesemia, which are being replaced Acute kidney injury, likely secondary to severe dehydration, sepsis, and acute tubular necrosis Lactic acidemia, secondary to pneumonia/sepsis Severe anion gap metabolic acidosis, secondary to above Mild transaminitis, secondary to sepsis Elevated troponins, likely supply/demand mismatch History of hypertension History of hyperlipidemia History of coronary artery disease Current everyday smoker, with a 30 to 40 pack year history Plan: Patient's medications, labs, imaging reviewed Patient is currently in some respiratory distress, and his work of breathing is increased. Transition to BiPAP 10/5 and FiO2 of 100% and to be titrated accordingly Patient was placed on broad-spectrum antibiotics including Zosyn and vancomycin and also azithromycin in the emergency room. Blood cultures are pending. Sputum culture is at the bedside and to be collected Start patient on a combination of DuoNebs [id number], formoterol inhalation, budesonide inhalation, and IV Solu-Medrol Nephrology consulted for ROBERTO Electrolytes were replaced, repeat labs pending Sodium bicarbonate infusion added at 100 MLS per hour Patient's overall respiratory status is labile, may need transfer to the intensive care unit for closer monitoring. Will trial the patient on BiPAP for now. Prognosis is guarded. Further recommendations are forthcoming. I have personally seen and examined the patient, performed the documentation and the assessment and plan as written. Number of minutes spent on the visit:20 This is a critical care evaluation was was seen in the joint evaluation along with the nurse practitioner and the emergency department. The patient was seen and evaluated. This evaluation was done in more than 30 minutes. In summary, this is a critically ill 58-year-old male patient who presented to the hospital because of respiratory distress and acute kidney injury. The patient has pneumonia, bilateral right more than left in addition to sepsis. The patient is currently on high flow oxygen and he is on Airvo at 60 L with an FiO2 of 75%. Pulse ox is in the order of 94%. He is bronchospastic and wheezy. White cell count of 18.5 with a hemoglobin 10.9. Blood gas was done in Emergency Department while him being on Airvo and these showed a pH of 7.44 with a pCO2 of 24 and pO2 of 85. The patient is still receiving IV fluids. Continues to have renal impairment with a BUN of 62 and a creatinine of 6.48. Serum bicarb is at 17 and the patient remains on a bicarb infusion. Antibiotic coverage include a combination of Zosyn, vancomycin and Zithromax was also added. The patient was started on bronchodilators. I added IV Solu-Medrol as the patient was actively bronchospastic and wheezy. No altered mentation the patient despite his lethargy, he was able to answer questions appropriately. He is going to be transferred to the intensive care unit. Repeat chest x-ray from today shows dense consolidation in the periphery of the right lower lobe and the right upper lobe. Limited infiltration the left lung base. The viral screen was negative. The patient has lactic acid level was 1.6. Serum calcium level is at 6.6 and ne phrology on the case. He did also have some abnormal troponin leak which is probably related to type II myocardial ischemia. The patient is not requiring any pressors at this point in time. Nephrology on the case. The patient will be moved up to the intensive care unit. Will check Legionella urine antigen. Check sputum Gram stain and culture. Will check blood cultures. Will continue to follow. Condition is critical. Time with Patient: Greater than 30
[2023-09-19] MEDS: methylPREDNISolone SOD SUCCI 40 MG/ML 1 ML VIAL IV SCH (06:17)
[2023-09-19 06:19] LABS: Basophils % (A) 0 %; Eosinophils % (A) 0 %; HGB 10.9 gm/dL (13.0-17.5); Lymphocytes # (A) 0.2 k/uL (1.0-4.8); Lymphocytes % (A) 1 %; MCH 31.9 pg (25.0-35.0); MCHC 34.2 g/dL (31.0-37.0); MCV 93.3 fL (80.0-100.0); Monocytes # (A) 0.3 k/uL (0-1.0); Monocytes % (A) 2 %; Neutrophils # (A) 17.9 k/uL (1.3-7.7); Neutrophils % (A) 97 %; Platelet Count 193 k/uL (150-450); RBC 3.44 m/uL (4.30-5.90); RDW 13.8 % (11.5-15.5); WBC 18.5 k/uL (3.8-10.6)
[2023-09-19 07:07] LABS: ALT 95 U/L (4-49); AST 215 U/L (17-59); African American GFR (CKD) 10 (>60 ml/min/1.73 sqM); Alkaline Phosphatase 96 U/L (38-126); Anion Gap 21 mmol/L; Blood Urea Nitrogen 56 mg/dL (9-20); Carbon Dioxide 10 mmol/L (22-30); Chloride 89 mmol/L (98-107); Glucose 115 mg/dL (74-99); Magnesium 2.1 mg/dL (1.6-2.3); Non-African American GFR(CKD) 8 (>60 ml/min/1.73 sqM); Potassium 3.7 mmol/L (3.5-5.1); Sodium 120 mmol/L (137-145); Total Bilirubin 1.5 mg/dL (0.2-1.3); Total Protein 5.4 g/dL (6.3-8.2)
[2023-09-19 07:12] LABS: Calcium 6.3 mg/dL (8.4-10.2)
[2023-09-19] MEDS: BUDESONIDE 1 MG/2 ML NEBU INHALATION SCH (08:02)
[2023-09-19] MEDS: FORMOTEROL FUMARATE 20 MCG/2 ML NEBU INHALATION SCH (08:02)
[2023-09-19 08:09] LABS: Appearance,Urine Cloudy (Clear); Bilirubin,Urine Negative (Negative); Blood,Urine Moderate (Negative); Budding Yeast,Urine Many /hpf; Color,Urine Yellow; Glucose,Urine (UA) Negative (Negative); Ketones,Urine Negative (Negative); Leukocyte Esterase,Urine Negative (Negative); Mucus,Urine Rare /hpf; Nitrite,Urine Negative (Negative); PH, Urine 5.5 (5.0-8.0); Protein,Urine 1+ (Negative); RBC,Urine 22 /hpf (0-5); Specific Gravity,Urine 1.014 (1.001-1.035); Squamous Epithelial Cell,Urine 1 /hpf (0-4); Urobilinogen,Urine <2.0 mg/dL (<2.0); WBC,Urine 16 /hpf (0-5)
--- NOTE | 2023-09-19 08:16 | US ---
EXAMINATION TYPE: US renals and bladder DATE OF EXAM: 09/19/2023 COMPARISON: NONE CLINICAL INDICATION: Male, 58 years old with history of acute renal failure; Abnormal labs. EXAM MEASUREMENTS: Right Kidney: 11.1 x 5.7 x 5.9 cm Left Kidney: 10.9 x 5.5 x 6.6 cm Right Kidney: No hydronephrosis or masses seen Left Kidney: No hydronephrosis or masses seen Bladder: distended, abnormal labs Bilateral Jets not seen Incidental finding: hyperechoic nonvascular lesion seen in liver = 1.2 x 1.6 x 1.3 cm There is no evidence for hydronephrosis at this point in time. No nephrolithiasis is seen. No irving s are identified. The urinary bladder is anechoic. IMPRESSION: No evidence for obstructive uropathy. There is a hyperechoic lesion within liver which is statistical ly likely represent hemangioma in the absence of risk factors.
[2023-09-19] MEDS: CALCIUM GLUCONATE IN NACL 2 GM in SALINE 1 100ML.BAG IVPB ONE ×2 (08:28→18:31)
[2023-09-19] MEDS: PANTOPRAZOLE 40 MG/10 ML VIAL IV SCH (08:29)
[2023-09-19] MEDS: CLOPIDOGREL 75 MG TAB PO SCH (08:29)
[2023-09-19] MEDS: ATORVASTATIN 80 MG TAB PO SCH (08:29)
--- NOTE | 2023-09-19 08:30 | XR ---
EXAMINATION TYPE: XR chest 1V portable DATE OF EXAM: 09/19/2023 8:23 AM CLINICAL INDICATION:Male, 58 years old with history of hypoxia; [facility] COMPARISON: Chest radiographs from 09/18/2023 TECHNIQUE: XR chest 1V portable Frontal view of the chest. FINDINGS: Lungs/Pleura: Improved aeration of lungs on today's exam with persistent airspace opacities scattered throughout the lungs. No evidence of pneumothorax or large pleural effusion. Pulmonary vascularity: Unremarkable. Heart/mediastinum: Cardiomediastinal silhouette is unremarkable. Musculoskeletal: No acute osseous pathology. Other findings: None Lines/Tubes: IMPRESSION: Improved aeration of the lungs with persistent right airspace opacities.
[2023-09-19] MEDS ORDERED: LISINOPRIL-HCTZ 10-12.5 MG 1 EACH TAB PO SCH (09:00)
[2023-09-19] MEDS ORDERED: SODIUM CHLORIDE 0.45% 1,000 ML with SODIUM BICARB (1 MEQ/ML) 150 ML IV SCH (10:30)
[2023-09-19 10:33] LABS: ABG Base Excess -7.9 mmol/L; ABG HCO3 16 mmol/L (21-25); ABG Oxygen Saturation 96.6 % (94-97); ABG PCO2 24 mmHg (35-45); ABG PH 7.44 (7.35-7.45); ABG PO2 85 mmHg (83-108); ABG TCO2 17 mmol/L (19-24); Allen Test Performed? Yes
[2023-09-19] MEDS: SODIUM BICARB 8.4% 50 ML SYR (1 MEQ/ML) IV STA ×2 (10:56→10:58)
--- NOTE | 2023-09-19 11:37 | P.PN ---
Subjective Progress Note Date: 09/19/23 Hospital Course: 58-year-old male with history of hypertension, dyslipidemia, coronary artery d isease presenting with shortness of breath. In the ED, temperature was 103.3, pulse 131, respiratory rate 30, blood pressure 118/86, saturating 88% on room air. WBC 21.2, hemoglobin 13, pH 7.41, pCO2 33, sodium 122, potassium 3.4, bicarb 18, anion gap 20, creatinine 5.94, lactic acid 3.9, magnesium 0.9, total bili 1.8, AST 110, ALT 53, ALP 105, troponin 0.102. Respiratory viral panel negative. Chest x-ray shows multifocal pneumonia right lower lobe greater than left. EKG shows sinus tachycardia with right bundle you block. Pelvic x-ray shows no acute process. Head CT shows no acute process. Respiratory function progressively worsening despite being on broad-spectrum antibiotics. Now requiring high flow nasal cannula. Pulmonology, nephrology, cardiology consulted. Subjective: Patient seen and examined at bedside. Respiratory function worsening. Pertinent positives and negatives as discussed above, a complete review of systems was performed and all other systems are negative. Vitals Signs Reviewed. General: Toxic appearing, in moderate respiratory distress, appears at stated age Derm: warm, dry Head: atraumatic, normocephalic, symmetric Eyes: EOMI, no lid lag, anicteric sclera, pupils equal round reactive to light ENT: Nose and ears atraumatic Neck: No thyromegaly, supple Mouth: no lip lesion, dr moist y membranes moist Cardiovascular: S1S2 tachycardic, reg, no murmur, no edema Lungs: Bilateral rhonchi, greater on right, no wheeze, no accessory muscle use, flow nasal cannula Abdominal: soft, obese abdomen, nontender to palpation, no guarding, no apprecia ble organomegaly Ext: no gross muscle atrophy, muscle strength muscle strength 5 out of 5 in all 4 extremities, no contractures Neuro: CN II-XII grossly intact Psych: Alert, oriented, appropriate affect, appears tired Data Reviewed Today: Pertinent Labs: WBC 18.5, hemoglobin 10.9, sodium 120, potassium 3.7, creatinine 6.5, calcium 6.3, total magnesium 2.1, troponin peaked to 0.132. Imaging: Chest x-ray independently interpreted, shows persistent multifocal opacities more on the right. Renal ultrasound shows no obstructive uropathy. Assessment and Plan: Patient is critically ill, would benefit from going to ICU. Severe sepsis secondary to multifocal pneumonia Acute hypoxic respiratory failure Severe leukocytosis Hyponatremia Acute kidney injury Metabolic acidosis Lactic acidosis, resolved Hypomagnesemia, resolved Hypocalcemia Transaminitis Elevated troponin, likely nonischemic -Continue IV vancomycin, monitor renal function, Zosyn discontinued due to increased risk of further renal toxicity, switch to IV cefepime 2 g every 8 hours, also on IV azithromycin 500 daily - DuoNebs every 4 hours scheduled, Solu-Medrol 60 every 6 hours IV - Blood cultures pending -Nephrology following, patient on sodium bicarb drip at 100 cc an hour Also received 2 g of calcium gluconate IV this morning - Pulmonology note reviewed Cardiology consulted, pending recommendations - On telemetry - Hold lisinopril and hydrochlorothiazide DVT ppx: Subcu heparin Code status: Full code Anticipated discharge place: Pending clinical course Anticipated discharge time: Pending clinical course Objective - Vital Signs Vital signs: Vital Signs Temp 99.2 F 09/19/23 07:54 Pulse 113 H 09/19/23 11:24 Resp 28 H 09/19/23 11:24 BP 115/67 09/19/23 11:24 Pulse Ox 94 L 09/19/23 11:24 FiO2 75 09/19/23 10:52 Intake & Output 09/18/23 09/19/23 09/19/23 18:59 06:59 18:59 Weight 83.915 kg - Labs CBC & Chem 7: 09/19/23 04:38 09/19/23 04:38 Labs: Abnormal Lab Results - Last 24 Hours (Table) 09/18/23 09/18/23 09/18/23 Range/Units 13:59 13:59 13:59 WBC 21.2 H (3.8-10.6) k/uL RBC 4.04 L (4.30-5.90) m/uL Hgb (13.0-17.5) gm/dL Hct 36.6 L (39.0-53.0) % Neutrophils # 20.3 H (1.3-7.7) k/uL Lymphocytes # 0.3 L (1.0-4.8) k/uL APTT 32.0 H (22.0-30.0) sec ABG pCO2 (35-45) mmHg ABG HCO3 (21-25) mmol/L ABG Total CO2 (19-24) mmol/L VBG pCO2 (37-51) mmHg VBG HCO3 (24-28) mmol/L Sodium 122 L (137-145) mmol/L Potassium 3.4 L (3.5-5.1) mmol/L Chloride 84 L (98-107) mmol/L Carbon Dioxide 18 L (22-30) mmol/L BUN 51 H (9-20) mg/dL Creatinine 5.94 H (0.66-1.25) mg/dL Glucose (74-99) mg/dL Plasma Lactic Acid Pino (0.7-2.0) mmol/L Calcium 7.2 L (8.4-10.2) mg/dL Magnesium 0.9 L* (1.6-2.3) mg/dL Total Bilirubin 1.8 H (0.2-1.3) mg/dL AST 110 H (17-59) U/L ALT 53 H (4-49) U/L Troponin I (0.000-0.034) ng/mL Total Protein (6.3-8.2) g/dL Albumin (3.5-5.0) g/dL Urine Protein (Negative) Urine Blood (Negative) Urine RBC (0-5) /hpf Urine WBC (0-5) /hpf Urine WBC Clumps (None) /hpf Urine Mucus (None) /hpf Urine Yeast (Budding) (None) /hpf 09/18/23 09/18/23 09/18/23 Range/Units 13:59 13:59 13:59 WBC (3.8-10.6) k/uL RBC (4.30-5.90) m/uL Hgb (13.0-17.5) gm/dL Hct (39.0-53.0) % Neutrophils # (1.3-7.7) k/uL Lymphocytes # (1.0-4.8) k/uL APTT (22.0-30.0) sec ABG pCO2 (35-45) mmHg ABG HCO3 (21-25) mmol/L ABG Total CO2 (19-24) mmol/L VBG pCO2 33 L (37-51) mmHg VBG HCO3 21 L (24-28) mmol/L Sodium (137-145) mmol/L Potassium (3.5-5.1) mmol/L Chloride (98-107) mmol/L Carbon Dioxide (22-30) mmol/L BUN (9-20) mg/dL Creatinine (0.66-1.25) mg/dL Glucose (74-99) mg/dL Plasma Lactic Acid Pino 3.9 H* (0.7-2.0) mmol/L Calcium (8.4-10.2) mg/dL Magnesium (1.6-2.3) mg/dL Total Bilirubin (0.2-1.3) mg/dL AST (17-59) U/L ALT (4-49) U/L Troponin I 0.102 H* (0.000-0.034) ng/mL Total Protein (6.3-8.2) g/dL Albumin (3.5-5.0) g/dL Urine Protein (Negative) Urine Blood (Negative) Urine RBC (0-5) /hpf Urine WBC (0-5) /hpf Urine WBC Clumps (None) /hpf Urine Mucus (None) /hpf Urine Yeast (Budding) (None) /hpf 09/18/23 09/18/23 09/18/23 Range/Units 17:08 20:29 20:29 WBC (3.8-10.6) k/uL RBC (4.30-5.90) m/uL Hgb (13.0-17.5) gm/dL Hct (39.0-53.0) % Neutrophils # (1.3-7.7) k/uL Lymphocytes # (1.0-4.8) k/uL APTT (22.0-30.0) sec ABG pCO2 (35-45) mmHg ABG HCO3 (21-25) mmol/L ABG Total CO2 (19-24) mmol/L VBG pCO2 (37-51) mmHg VBG HCO3 (24-28) mmol/L Sodium 123 L (137-145) mmol/L Potassium 3.3 L (3.5-5.1) mmol/L Chloride 90 L (98-107) mmol/L Carbon Dioxide 14 L (22-30) mmol/L BUN 53 H (9-20) mg/dL Creatinine 6.05 H (0.66-1.25) mg/dL Glucose (74-99) mg/dL Plasma Lactic Acid Pino (0.7-2.0) mmol/L Calcium 6.6 L (8.4-10.2) mg/dL Magnesium (1.6-2.3) mg/dL Total Bilirubin (0.2-1.3) mg/dL AST (17-59) U/L ALT (4-49) U/L Troponin I 0.116 H* 0.132 H* (0.000-0.034) ng/mL Total Protein (6.3-8.2) g/dL Albumin (3.5-5.0) g/dL Urine Protein (Negative) Urine Blood (Negative) Urine RBC (0-5) /hpf Urine WBC (0-5) /hpf Urine WBC Clumps (None) /hpf Urine Mucus (None) /hpf Urine Yeast (Budding) (None) /hpf 09/19/23 09/19/23 09/19/23 Range/Units 04:38 04:38 07:54 WBC 18.5 H (3.8-10.6) k/uL RBC 3.44 L (4.30-5.90) m/uL Hgb 10.9 L (13.0-17.5) gm/dL Hct 32.0 L (39.0-53.0) % Neutrophils # 17.9 H (1.3-7.7) k/uL Lymphocytes # 0.2 L (1.0-4.8) k/uL APTT (22.0-30.0) sec ABG pCO2 (35-45) mmHg ABG HCO3 (21-25) mmol/L ABG Total CO2 (19-24) mmol/L VBG pCO2 (37-51) mmHg VBG HCO3 (24-28) mmol/L Sodium 120 L (137-145) mmol/L Potassium (3.5-5.1) mmol/L Chloride 89 L (98-107) mmol/L Carbon Dioxide 10 L (22-30) mmol/L BUN 56 H (9-20) mg/dL Creatinine 6.50 H (0.66-1.25) mg/dL Glucose 115 H (74-99) mg/dL Plasma Lactic Acid Pino (0.7-2.0) mmol/L Calcium 6.3 L* (8.4-10.2) mg/dL Magnesium (1.6-2.3) mg/dL Total Bilirubin 1.5 H (0.2-1.3) mg/dL AST 215 H (17-59) U/L ALT 95 H (4-49) U/L Troponin I (0.000-0.034) ng/mL Total Protein 5.4 L (6.3-8.2) g/dL Albumin 3.0 L (3.5-5.0) g/dL Urine Protein 1+ H (Negative) Urine Blood Moderate H (Negative) Urine RBC 22 H (0-5) /hpf Urine WBC 16 H (0-5) /hpf Urine WBC Clumps Few H (None) /hpf Urine Mucus Rare H (None) /hpf Urine Yeast (Budding) Many H (None) /hpf 09/19/23 Range/Units 10:30 WBC (3.8-10.6) k/uL RBC (4.30-5.90) m/uL Hgb (13.0-17.5) gm/dL Hct (39.0-53.0) % Neutrophils # (1.3-7.7) k/uL Lymphocytes # (1.0-4.8) k/uL APTT (22.0-30.0) sec ABG pCO2 24 L (35-45) mmHg ABG HCO3 16 L (21-25) mmol/L ABG Total CO2 17 L (19-24) mmol/L VBG pCO2 (37-51) mmHg VBG HCO3 (24-28) mmol/L Sodium (137-145) mmol/L Potassium (3.5-5.1) mmol/L Chloride (98-107) mmol/L Carbon Dioxide (22-30) mmol/L BUN (9-20) mg/dL Creatinine (0.66-1.25) mg/dL Glucose (74-99) mg/dL Plasma Lactic Acid Pino (0.7-2.0) mmol/L Calcium (8.4-10.2) mg/dL Magnesium (1.6-2.3) mg/dL Total Bilirubin (0.2-1.3) mg/dL AST (17-59) U/L ALT (4-49) U/L Troponin I (0.000-0.034) ng/mL Total Protein (6.3-8.2) g/dL Albumin (3.5-5.0) g/dL Urine Protein (Negative) Urine Blood (Negative) Urine RBC (0-5) /hpf Urine WBC (0-5) /hpf Urine WBC Clumps (None) /hpf Urine Mucus (None) /hpf Urine Yeast (Budding) (None) /hpf
--- NOTE | 2023-09-19 11:57 | P.CRDCN ---
History of Present Illness History of present illness: HISTORY OF PRESENT ILLNESS: This is a 58-year-old male with a past medical history significant for hypertension, hyperlipidemia, coronary artery disease, nicotine dependence. Patient does not see a bread slicer machine at [facility] however patient was seen by Dr. Becker in March 2023 during hospitalization. We have been asked to see the patient in consultation for elevated troponins. Patient examined at the bedside in the emergency room. Patient states he presented to the hospital to chief complaint of shortness of breath. Patient was found to have bilateral pneumonia. He was started on IV antibiotics. At the time of examination, patient remains short of breath. He has 3-4 word conversational dyspnea. He is currently on Airvo. He has significant wheezing upon examination. Patient denies any chest pain or pressure at the time of examination or prior to coming to the hospital. Patient states he is a pack-a-day smoker for the past 30 years. He reports occasional alcohol use. DIAGNOSTICS: - EKG reveals sinus tachycardia with right bundle branch block. No signs of acute ischemia.. - Chest xray improved aeration of the lungs with persistent right airspace o pacities - Laboratory data: WBC 18.5. Hemoglobin 10.9. Platelet count 193. Sodium 120. Potassium 3.7. BUN 56. Creatinine 6.50. Magnesium 1.5. Troponin 0.102. 0.116. 0.132. - Current home cardiac medications include metoprolol tartrate 25 mg twice a day, lisinoprilhydrochlorothiazide 10-12.5 mg daily, Plavix 75 mg daily, Lipitor 80 mg daily. - Most recent echocardiogram obtained in March 2023 revealing ejection fraction 55 to 60%, trace mitral regurgitation, and mild tricuspid regurgitation - Cardiac catheterization history: March [address] Becker revealing right dominant system. Normal filling pressures. No gradient. The LAD has diffuse disease in the proximal and midportion. There is 30 to 40% narrowing. First diagonal has a 70 to 80% narrowing, small caliber vessel. Distal LAD towards the apex is subtotally occluded and the 2 diagonal branches that are opacified before subtotal occlusion are free of significant disease. Medical management was recommended. REVIEW OF SYSTEMS: At the time of my exam: CONSTITUTIONAL: Denies fever or chills. HEENT: Denies blurred vision, vision changes, or eye pain. Denies hemoptysis CARDIOVASCULAR: Denies chest pain. Denies orthopnea. Denies PND. Denies palpitations RESPIRATORY: Denies shortness of breath. GASTROINTESTINAL: Denies abdominal pain. Denies nausea or vomiting. HEMATOLOGIC: Denies bleeding disorders. GENITOURINARY: Denies any blood in urine. SKIN: Denies pruitis. Denies rash. PHYSICAL EXAM: VITAL SIGNS: Reviewed. GENERAL: Well-developed in no mild distress. HEENT: Head is normocephalic. Pupils are equal, round. Sclerae anicteric. Mucous membranes of the mouth are moist. Neck supple. No JVD or thyromegaly LUNGS: Respirations even and unlabored. Lungs with significant expiratory wheezing and decreased air exchange throughout HEART: Regular rate and rhythm. S1 and S2 heard. ABDOMEN: Soft. Nondistended. Nontender. EXTREMITIES: Normal range of motion. No clubbing or cyanosis. Peripheral pu lses intact. No lower extremity edema NEUROLOGIC: Awake and alert. Oriented x 3. ASSESSMENT: Bilateral community-acquired pneumonia Sepsis Acute COPD exacerbation Acute hypoxic respiratory failure Acute kidney injury Elevated troponins, flat, suspect secondary to acute kidney injury Leukocytosis Mild transaminitis Hypomagnesemia Hyponatremia Hypertension Hyperlipidemia Coronary artery disease NSTEMI, 03/2023 on plavix outpatient Nicotine dependence PLAN: An acute coronary event has been ruled out Obtain 2D echo to assess cardiac structure and function Hold nephrotoxic agents including lisinopril and hydrochlorothiazide Discontinue statin due to worsening transaminitis Continue Plavix Further recommendations pending patient course Nurse practitioner note has been reviewed by physician. Signing provider agrees with the documented findings, assessment, and plan of care documented by [employer]ICIAN as a scribe. Past Medical History Additional Past Medical History / Comment(s): Duodenal ulcer, barrets esophagus History of Any Multi-Drug Resistant Organisms: None Reported Past Surgical History: Cholecystectomy, Hernia Repair Past Psychological History: No Psychological Hx Reported Smoking Status: Current every day smoker Past Alcohol Use History: Occasional Past Drug Use History: None Reported Medications and Allergies Home Medications Medication Instructions Recorded Confirmed Type Albuterol Inhaler [Ventolin Hfa 2 puff INHALATION RT-Q4H PRN 03/24/23 09/18/23 History Inhaler] Atorvastatin [Lipitor] 80 mg PO DAILY #30 tab 03/27/23 09/18/23 Rx Clopidogrel [Plavix] 75 mg PO DAILY #30 tab 03/27/23 09/18/23 Rx Metoprolol Tartrate [Lopressor] 25 mg PO BID #60 tab 03/27/23 09/18/23 Rx Nitroglycerin Sl Tabs [Nitrostat] 0.4 mg SUBLINGUAL Q5M PRN #20 tab 03/27/23 09/18/23 Rx Lisinopril-Hctz 10-12.5 mg 1 tab PO DAILY 09/18/23 09/18/23 History [Zestoretic 10-12.5] Omeprazole [PriLOSEC] 40 mg PO DAILY 09/18/23 09/18/23 History Allergies Allergy/AdvReac Type Severity Reaction Status Date / Time aspirin AdvReac Abdominal Verified 09/18/23 14:54 Pain & Chest Pain ibuprofen [From Motrin] AdvReac Abdominal Verified 09/18/23 14:54 Pain & Chest Pain Physical Exam Vitals: Vital Signs Temp Pulse Pulse Resp BP BP Pulse Ox 09/19/23 08:25 116 H 09/19/23 08:14 114 H 09/19/23 08:07 09/19/23 08:04 112 H 09/19/23 07:54 99.2 F 109 H 32 H 117/73 99 09/19/23 06:15 96 09/19/23 05:38 09/19/23 05:34 109 H 30 H 104/72 98 09/19/23 05:21 112 H 34 H 119/89 94 L 09/19/23 04:51 09/19/23 04:28 09/19/23 04:19 100.1 F H 09/19/23 03:58 113 H 09/19/23 03:45 111 H 09/19/23 03:39 102.0 F H 112 H 32 H 105/74 96 09/19/23 02:00 108 H 24 104/68 97 09/18/23 23:49 105 H 09/18/23 23:39 104 H 09/18/23 22:47 98 18 103/75 94 L 09/18/23 21:43 99.4 F 100 18 106/70 94 L 09/18/23 21:42 18 09/18/23 20:00 100.3 F H 102 H 22 102/60 92 L 09/18/23 19:30 103 H 24 94/60 93 L 09/18/23 19:00 98.0 F 105 H 24 104/63 94 L 09/18/23 18:59 107 H 09/18/23 18:51 108 H 09/18/23 17:00 109 H 23 105/66 94 L 09/18/23 16:30 110 H 27 H 111/67 94 L 09/18/23 16:00 105 H 28 H 109/47 95 09/18/23 15:52 100 09/18/23 15:44 105 H 09/18/23 15:30 107 H 26 H 109/95 92 L 09/18/23 15:00 99.7 F H 114 H 24 103/70 92 L 09/18/23 14:30 125 H 26 H 127/48 92 L 09/18/23 13:24 103.3 F H 131 H 30 H 118/86 88 L FiO2 09/19/23 08:25 09/19/23 08:14 09/19/23 08:07 75 09/19/23 08:04 09/19/23 07:54 09/19/23 06:15 75 09/19/23 05:38 50 09/19/23 05:34 09/19/23 05:21 09/19/23 04:51 100 09/19/23 04:28 100 09/19/23 04:19 09/19/23 03:58 09/19/23 03:45 09/19/23 03:39 09/19/23 02:00 09/18/23 23:49 09/18/23 23:39 09/18/23 22:47 09/18/23 21:43 09/18/23 21:42 09/18/23 20:00 09/18/23 19:30 09/18/23 19:00 09/18/23 18:59 09/18/23 18:51 09/18/23 17:00 09/18/23 16:30 09/18/23 16:00 09/18/23 15:52 09/18/23 15:44 09/18/23 15:30 09/18/23 15:00 09/18/23 14:30 09/18/23 13:24 Results 09/19/23 04:38 09/19/23 04:38 Cardiac Enzymes 09/18/23 09/18/23 09/18/23 Range/Units 13:59 13:59 17:08 AST 110 H (17-59) U/L Troponin I 0.102 H* 0.116 H* (0.000-0.034) ng/mL 09/18/23 09/19/23 Range/Units 20:29 04:38 AST 215 H (17-59) U/L Troponin I 0.132 H* (0.000-0.034) ng/mL Coagulation 09/18/23 Range/Units 13:59 PT 11.9 (10.0-12.5) sec APTT 32.0 H (22.0-30.0) sec CBC 09/18/23 09/19/23 Range/Units 13:59 04:38 WBC 21.2 H 18.5 H (3.8-10.6) k/uL RBC 4.04 L 3.44 L (4.30-5.90) m/uL Hgb 13.0 10.9 L (13.0-17.5) gm/dL Hct 36.6 L 32.0 L (39.0-53.0) % Plt Count 193 193 (150-450) k/uL Comprehensive Metabolic Panel 09/18/23 09/18/23 09/19/23 Range/Units 13:59 20:29 04:38 Sodium 122 L 123 L 120 L (137-145) mmol/L Potassium 3.4 L 3.3 L 3.7 (3.5-5.1) mmol/L Chloride 84 L 90 L 89 L (98-107) mmol/L Carbon Dioxide 18 L 14 L 10 L (22-30) mmol/L BUN 51 H 53 H 56 H (9-20) mg/dL Creatinine 5.94 H 6.05 H 6.50 H (0.66-1.25) mg/dL Glucose 94 97 115 H (74-99) mg/dL Calcium 7.2 L 6.6 L 6.3 L* (8.4-10.2) mg/dL AST 110 H 215 H (17-59) U/L ALT 53 H 95 H (4-49) U/L Alkaline Phosphatase 105 96 (38-126) U/L Total Protein 6.3 5.4 L (6.3-8.2) g/dL Albumin 3.6 3.0 L (3.5-5.0) g/dL Current Medications Generic Name Dose Route Start Last Admin Trade Name Freq PRN Reason Stop Dose Admin Acetaminophen 650 mg 09/18/23 15:39 09/19/23 03:43 Acetaminophen Tab 325 Mg Tab PO 650 mg Q6HR PRN Administration Mild Pain or Fever > 100.5 Albuterol Sulfate 2.5 mg 09/18/23 16:04 Albuterol Nebulized 2.5 Mg/3 Ml INHALATION RT-Q4H PRN Shortness Of Breath Albuterol/Ipratropium 3 ml 09/18/23 20:00 09/19/23 08:02 Ipratropium-Albuterol 3 Ml Neb INHALATION 3 ml RT-Q4H DANNA Administration Atorvastatin Calcium 80 mg 09/19/23 09:00 09/19/23 08:29 Atorvastatin 80 Mg Tab PO 80 mg DAILY DANNA Administration Budesonide 1 mg 09/19/23 08:00 09/19/23 08:02 Budesonide 1 Mg/2 Ml Nebu INHALATION 1 mg RT-BID DANNA Administration Clopidogrel Bisulfate 75 mg 09/19/23 09:00 09/19/23 08:29 Clopidogrel 75 Mg Tab PO 75 mg DAILY DANNA Administration Formoterol Fumarate 20 mcg 09/19/23 08:00 09/19/23 08:02 Formoterol Fumarate 20 Mcg/2 Ml Nebu INHALATION 20 mcg RT-BID DANNA Administration Heparin Sodium (Porcine) 5,000 unit 09/18/23 16:00 09/19/23 08:29 Heparin Sodium,Porcine 5,000 Unit/Ml 1 Ml Vial SQ 5,000 unit Q8HR DANNA Administration Piperacillin Sod/Tazobactam 100 mls @ 25 mls/hr 09/19/23 00:00 09/19/23 08:29 Sod 3.375 gm/ Sodium Chloride IVPB 25 mls/hr Q8HR DANNA Administration Protocol Azithromycin 500 mg/ Sodium 250 mls @ 250 mls/hr 09/18/23 17:00 09/18/23 17:47 Chloride IVPB 09/20/23 17:59 250 mls/hr DAILY@1700 DANNA Administration Protocol Vancomycin HCl 1,500 mg/ 500 mls @ 167 mls/hr 09/19/23 12:00 Sodium Chloride IVPB 09/19/23 14:59 ONCE ONE Sodium Bicarbonate 150 ml/ 1,150 mls @ 100 mls/hr 09/19/23 01:23 09/19/23 02:51 Sodium Chloride IV 100 mls/hr .[id number] DANNA Administration Calcium Gluconate/Sodium 100 mls @ 100 mls/hr 09/19/23 08:00 09/19/23 08:28 Chloride 2 gm/ IV Solution IVPB 09/19/23 08:59 100 mls/hr ONCE ONE Administration Methylprednisolone Sodium Succinate 60 mg 09/19/23 06:00 09/19/23 06:17 Methylprednisolone Sod Succi 40 Mg/Ml 1 Ml Vial IV 60 mg Q6HR DANNA Administration Metoprolol Tartrate 25 mg 09/18/23 21:00 09/19/23 08:29 Metoprolol Tartrate 25 Mg Tab PO 25 mg BID DANNA Administration Miscellaneous Information 1 each 09/18/23 13:47 Vancomycin Iv Per Pharmacy 1 Each Misc MISCELLANE DIRECTED PRN Per Protocol Protocol Naloxone HCl 0.2 mg 09/18/23 15:39 Naloxone 0.4 Mg/Ml 1 Ml Vial IV Q2M PRN Opioid Reversal Ondansetron HCl 4 mg 09/18/23 15:39 Ondansetron 4 Mg/2 Ml Vial IVP Q8HR PRN Nausea And Vomiting Pantoprazole Sodium 40 mg 09/19/23 09:00 09/19/23 08:29 Pantoprazole 40 Mg/10 Ml Vial IV 40 mg DAILY DANNA Administration 09/19/23 04:38 09/19/23 04:38
[2023-09-19 12:02] LABS: African American GFR (CKD) 10 (>60 ml/min/1.73 sqM); Anion Gap 17 mmol/L; Blood Urea Nitrogen 62 mg/dL (9-20); Calcium 6.6 mg/dL (8.4-10.2); Carbon Dioxide 17 mmol/L (22-30); Chloride 88 mmol/L (98-107); Glucose 99 mg/dL (74-99); Non-African American GFR(CKD) 9 (>60 ml/min/1.73 sqM); Potassium 3.5 mmol/L (3.5-5.1); Sodium 122 mmol/L (137-145)
[2023-09-19] MEDS: CEFEPIME 1 GM in SODIUM CHLORIDE 0.9% 50 ML IVPB SCH (12:34)
[2023-09-19] MEDS: VANCOMYCIN 1,500 MG in SODIUM CHLORIDE 0.9% 500 ML 500 ML IVPB ONE (12:47)
--- NOTE | 2023-09-19 13:15 | P.NPCON ---
History of Present Illness - Reason for Consult acute renal failure - History of Present Illness patient is a 58-year-old male with history of hypertension, coronary artery disease who was admitted to the hospital with complaints of shortness of breath which started about 3-4 days prior to admission. Patient was also complaining of weakness and lightheadedness. Noted to be febrile, temp of 103.3, with a serum creatinine of 5.8, O2 sats at 88%, sodium of 123 Chest x-ray shows bilateral lung infiltrates. Serologies for influenza and COVID are negative. No previous history of kidney diseases. Serum creatinine was 0.8 on 03/27/2023.ultrasound shows no evidence of obstructive uropathy. Low blood pressure noted with systolic in the 90s. Currently with indwelling Barnes catheter with urine output about 300 mL noted in the back. Maintained on IV bicarb due to severe metabolic acidosis. Review of Systems as per HPI Past Medical History Additional Past Medical History / Comment(s): Duodenal ulcer, barrets esophagus History of Any Multi-Drug Resistant Organisms: None Reported Past Surgical History: Cholecystectomy, Hernia Repair Past Psychological History: No Psychological Hx Reported Smoking Status: Current every day smoker Past Alcohol Use History: Occasional Past Drug Use History: None Reported Medications and Allergies Home Medications Medication Instructions Recorded Confirmed Type Albuterol Inhaler [Ventolin Hfa 2 puff INHALATION RT-Q4H PRN 03/24/23 09/18/23 History Inhaler] Atorvastatin [Lipitor] 80 mg PO DAILY #30 tab 03/27/23 09/18/23 Rx Clopidogrel [Plavix] 75 mg PO DAILY #30 tab 03/27/23 09/18/23 Rx Metoprolol Tartrate [Lopressor] 25 mg PO BID #60 tab 03/27/23 09/18/23 Rx Nitroglycerin Sl Tabs [Nitrostat] 0.4 mg SUBLINGUAL Q5M PRN #20 tab 03/27/23 09/18/23 Rx Lisinopril-Hctz 10-12.5 mg 1 tab PO DAILY 09/18/23 09/18/23 History [Zestoretic 10-12.5] Omeprazole [PriLOSEC] 40 mg PO DAILY 09/18/23 09/18/23 History Allergies Allergy/AdvReac Type Severity Reaction Status Date / Time aspirin AdvReac Abdominal Verified 09/18/23 14:54 Pain & Chest Pain ibuprofen [From Motrin] AdvReac Abdominal Verified 09/18/23 14:54 Pain & Chest Pain Physical Exam Vitals: Vital Signs Temp Pulse Pulse Resp BP BP Pulse Ox 09/19/23 11:24 113 H 28 H 115/67 94 L 09/19/23 11:01 116 H 09/19/23 10:52 09/19/23 10:40 112 H 09/19/23 08:25 116 H 09/19/23 08:14 114 H 09/19/23 08:07 09/19/23 08:04 112 H 09/19/23 07:54 99.2 F 109 H 32 H 117/73 99 09/19/23 06:15 96 09/19/23 05:38 09/19/23 05:34 109 H 30 H 104/72 98 09/19/23 05:21 112 H 34 H 119/89 94 L 09/19/23 04:51 09/19/23 04:28 09/19/23 04:19 100.1 F H 09/19/23 03:58 113 H 09/19/23 03:45 111 H 09/19/23 03:39 102.0 F H 112 H 32 H 105/74 96 09/19/23 02:00 108 H 24 104/68 97 09/18/23 23:49 105 H 09/18/23 23:39 104 H 09/18/23 22:47 98 18 103/75 94 L 09/18/23 21:43 99.4 F 100 18 106/70 94 L 09/18/23 21:42 18 09/18/23 20:00 100.3 F H 102 H 22 102/60 92 L 09/18/23 19:30 103 H 24 94/60 93 L 09/18/23 19:00 98.0 F 105 H 24 104/63 94 L 09/18/23 18:59 107 H 09/18/23 18:51 108 H 09/18/23 17:00 109 H 23 105/66 94 L 09/18/23 16:30 110 H 27 H 111/67 94 L 09/18/23 16:00 105 H 28 H 109/47 95 09/18/23 15:52 100 09/18/23 15:44 105 H 09/18/23 15:30 107 H 26 H 109/95 92 L 09/18/23 15:00 99.7 F H 114 H 24 103/70 92 L 09/18/23 14:30 125 H 26 H 127/48 92 L 09/18/23 13:24 103.3 F H 131 H 30 H 118/86 88 L FiO2 09/19/23 11:24 09/19/23 11:01 09/19/23 10:52 75 09/19/23 10:40 09/19/23 08:25 09/19/23 08:14 09/19/23 08:07 75 09/19/23 08:04 09/19/23 07:54 09/19/23 06:15 75 09/19/23 05:38 50 09/19/23 05:34 09/19/23 05:21 09/19/23 04:51 100 09/19/23 04:28 100 09/19/23 04:19 09/19/23 03:58 09/19/23 03:45 09/19/23 03:39 09/19/23 02:00 09/18/23 23:49 09/18/23 23:39 09/18/23 22:47 09/18/23 21:43 09/18/23 21:42 09/18/23 20:00 09/18/23 19:30 09/18/23 19:00 09/18/23 18:59 09/18/23 18:51 09/18/23 17:00 09/18/23 16:30 09/18/23 16:00 09/18/23 15:52 09/18/23 15:44 09/18/23 15:30 09/18/23 15:00 09/18/23 14:30 09/18/23 13:24 patient is awake, tachypneic. Examination of the heart S1 and S2 Examination of the lungs decreased breath sounds at the bases Abdomen is soft nontender Examination of lower extremity shows no significant edema [employer] exam grossly intact Results - Lab Results Most recent lab results ABG pH 7.44 (7.35-7.45) 09/19/23 10:30 ABG pCO2 24 mmHg (35-45) L 09/19/23 10:30 ABG pO2 85 mmHg (83-108) 09/19/23 10:30 ABG HCO3 16 mmol/L (21-25) L 09/19/23 10:30 ABG O2 Saturation 96.6 % (94-97) 09/19/23 10:30 Calcium 6.6 mg/dL (8.4-10.2) L 09/19/23 10:55 Magnesium 2.1 mg/dL (1.6-2.3) 09/19/23 04:38 09/19/23 04:38 09/19/23 10:55 Assessment and Plan Assessment: 1. Acute kidney injury, ATN. Secondary to hypotension and underlying infection. Nonoliguric. Currently with indwelling Barnes catheter. Ultrasound shows no evidence of obstruction. UA shows 1+ protein and moderate blood WBCs 16. 2. Community-acquired bilateral pneumonia maintained on vancomycin, cefepime and azithromycin 3. Acute hypoxic respiratory failure 4. Anion gap metabolic acidosis associated with acute kidney injury. 5. Hypokalemia 6. Hyponatremia, hypovolemic, improving with IV bicarb which is based in normal saline. Plan: continue current IV fluids. Check serologies rule out underlying GN Repeat labs at 4 PM. Check urine osmolality Briefly discussed renal replacement therapy if renal function continues to worsen. Monitor vancomycin levels closely given the advanced acute kidney injury. Thank you for the consultation. We will continue to follow the patient with you during his hospitalization.
[2023-09-19] MEDS: CISATRACURIUM 2 MG/ML 5 ML VIAL IV ONE ×4 (15:52→18:37)
[2023-09-19] MEDS ORDERED: CEFEPIME 2 GM in SODIUM CHLORIDE 0.9% 100 ML IVPB SCH (16:00)
[2023-09-19 16:10] LABS: Glucose,Whole Blood 150 mg/dL (70-110)
--- NOTE | 2023-09-19 16:43 | XR ---
EXAMINATION TYPE: XR chest 1V portable DATE OF EXAM: 09/19/2023 COMPARISON: 09/19/2023 INDICATION: Tube placement line placement TECHNIQUE: Single frontal view of the chest is obtained. FINDINGS: The heart size is normal. The pulmonary vasculature is normal. There is consolidation within the lateral right lung. Moderate infiltrate is at the left base. Endotracheal tube tip 6.2 cm above the teressa. Left central venous catheter tip is within the proximal right atrium. No pneumothorax is evident. Endotracheal tube tip is within the distal esophagus and can be advanced at least 10 cm for better po sitioning. IMPRESSION: 1. Bilateral lung infiltrates. Correlate for pneumonia. Follow-up is recommended. 2. Lines and catheters discussed above. 3. The nasogastric tube tip is within the distal esophagus and should be advanced at least 10 cm for better positioning.
[2023-09-19] MEDS: fentaNYL (PF). 1,000 MCG in SODIUM CHLORIDE 0.9% 80 ML IV SCH (17:04)
[2023-09-19] MEDS: ACETAMINOPHEN IV (For NPO) 1,000 MG in EMPTY BAG 1 BAG IVPB PRN (17:07)
[2023-09-19 17:42] LABS: ABG HCO3 22 mmol/L (21-25); ABG Oxygen Saturation 90.7 % (94-97); ABG PCO2 61 mmHg (35-45); ABG PO2 77 mmHg (83-108); ABG TCO2 24 mmol/L (19-24); Allen Test Performed? Yes
[2023-09-19 17:45] LABS: African American GFR (CKD) 9 (>60 ml/min/1.73 sqM); Anion Gap 15 mmol/L; Blood Urea Nitrogen 67 mg/dL (9-20); Carbon Dioxide 19 mmol/L (22-30); Chloride 86 mmol/L (98-107); Glucose 144 mg/dL (74-99); Non-African American GFR(CKD) 8 (>60 ml/min/1.73 sqM); Potassium 3.6 mmol/L (3.5-5.1); Sodium 120 mmol/L (137-145)
[2023-09-19 17:45] LABS: ABG PH 7.16 (7.35-7.45)
[2023-09-19 17:46] LABS: Calcium 5.8 mg/dL (8.4-10.2)
--- NOTE | 2023-09-19 18:25 | P.PCN ---
Date of Procedure: 09/19/23 Operative Findings: Preoperative Diagnosis: Acute hypoxic/hypercapnic respiratory failure Postoperative Diagnosis: Same Procedure(s) Performed: Intubation, insertion of a central line, insertion of an arterial line Surgeon: Noah Varghese Estimated Blood Loss (ml): 0 Pathology: other Condition: critical Disposition: ICU Operative Findings: Intubation This procedure was done under emergency settings. At that point, the patient was given 10 mg of IV propofol. Following that, a #4 laryngoscope was utilized to visualize the posterior pharynx and larynx. Epiglottis was identified. The upper airway was full of gastric material, greenish, liquidy, and the material was also extending into her upper trachea. Manual aspiration was done using a suctioning device. While undergoing continuous aspiration and suctioning, I was able to utilize a #4 laryngoscope, a MAC blade, and I was able to visualize the vocal cords. Immediately under direct visualization, and #8 orotracheal tube was inserted and the balloon was inflated and manual bagging was performed. I noted some of the gastric material within the orotracheal tube. Breath sounds were equal bilaterally and there was positive, dioxide change on the, dioxide detector. Central Line Procedure Note Central Line Location: [_] Right or [_x] Left [_] Internal Jugular Vein or [x_] Subclavian Vein or [_] Femoral Vein Consent: [_] Consent was obtained from prior to the procedure. Indications, risks and benefits were discussed prior to the procedure. [x_] The procedure was performed emergently and the permission was implied because of the emergent nature. The [facility] Central Line Insertion Practices form was completed during and immediately following the procedure. A time out was performed. My hands were washed immediately prior to the procedure. I wore a surgical cap, mask with protective eyewear, full gown and sterile gloves throughout the procedure. The patient was placed in Trendelenburg position. The Left chest was prepped using chlorhexidine scrub and draped in sterile fashion using a three quarter sheet drape and sterile towels. Skin preparation was allowed to dry prior to skin puncture. Anatomic landmarks were identified. Anesthesia was achieved over the vein using 1% lidocaine. The introducer needle was inserted into the vein. Venous blood was withdrawn. The syringe was removed and a guidewire was advanced into the introducer needle. A small incision was made at the skin surface with a scalpel and the introducer needle was exchanged for a dilator over the guidewire. After appropriate dilation was obtained, the dilator was exchanged over the wire for an antimicrobial coated central venous catheter. The wire was removed and the catheter was sutured in place . A biopatch was placed at the insertion site. A sterile op-site was placed over the catheter and biopatch. The patient tolerated the procedure without any hemodynamic compromise. At time of procedure completion, all ports aspirated and flushed properly. Post-procedure chest x-ray : [_] Is pending at this time. [_x ] Shows adequate positioning of the catheter for use. Arterial line Indication: Hemodynamic monitoring. A time-out was completed verifying correct patient, procedure, site, positioning, and implant(s) or special equipment if applicable. Allens test was performed to ensure adequate perfusion. The patients left wrist was prepped and draped in sterile fashion. 1% Lidocaine was used to anesthetize the area. An 18G Arrow arterial line was introduced into the left radial artery. The catheter was threaded over the guide wire and the needle was removed with appropriate pulsatile blood return. Blood loss was minimal. The catheter was then sutured in place to the skin and a sterile dressing applied. Perfusion to the extremity distal to the point of catheter insertion was checked and found to be adequate. The patient tolerated the procedure well and there were no complications.
[2023-09-19] MEDS: CISATRACURIUM 200 MG in SODIUM CHLORIDE 0.9% 180 ML IV SCH (18:35)
--- NOTE | 2023-09-19 18:41 | XR ---
EXAMINATION TYPE: XR chest 1V DATE OF EXAM: 09/19/2023 6:24 PM CLINICAL INDICATION:Male, 58 years old with history of verify OG placement; COMPARISON: Chest radiographs from 09/19/2023. TECHNIQUE: XR chest 1V Frontal view of the chest. FINDINGS: Lungs/Pleura: No evidence of focal consolidation or pneumothorax. Blunting of the costophrenic angles is present. Pulmonary vascularity: Pulmonary vascular congestion. Heart/mediastinum: Cardiomediastinal silhouette is enlarged and stable. Musculoskeletal: No acute osseous pathology. Other findings: None Lines/Tubes: Endotracheal tube with distal tip 47.77 cm above the teressa. Nasogastric tube with its distal tip and side-port projecting under the diaphragm. Left central venous catheter with distal tip at the cavoatrial junction. IMPRESSION: Cardiomegaly, pulmonary vascular congestion and bilateral pleural effusions. Correlate with BNP for c ongestive heart failure.
[2023-09-19] MEDS: NOREPINEPHRINE 4 MG in SODIUM CHLORIDE 0.9% 250 ML IV SCH (18:46)
[2023-09-19] MEDS: SODIUM CHLORIDE 0.9% 1,000 ML IV ONE ×2 (19:31→21:14)
[2023-09-19] MEDS: CHLORHEXIDINE GLUCONATE 15 ML CUP MUCOUS MEM SCH (20:59)
[2023-09-19] MEDS ORDERED: PIPERACILLIN-TAZOBACTAM 3.375 GM in SODIUM CHLORIDE 0.9% 100 ML IVPB SCH (21:00)
[2023-09-19 21:09] LABS: Basophils % (A) 0 %; Eosinophils % (A) 0 %; HCT 29.4 % (39.0-53.0); HGB 9.8 gm/dL (13.0-17.5); Lymphocytes # (A) 0.5 k/uL (1.0-4.8); Lymphocytes % (A) 2 %; MCH 31.6 pg (25.0-35.0); MCHC 33.3 g/dL (31.0-37.0); Mean Platelet Volume 9.5; Monocytes # (A) 0.3 k/uL (0-1.0); Monocytes % (A) 2 %; Neutrophils # (A) 20.3 k/uL (1.3-7.7); Neutrophils % (A) 96 %; Platelet Count 209 k/uL (150-450); WBC 21.2 k/uL (3.8-10.6)
[2023-09-19 21:16] LABS: Hepatitis B Surface Antigen Nonreactive (Nonreactive); Hepatitis C IgG Antibody Nonreactive (Nonreactive)
[2023-09-19 21:21] LABS: INR 1.2 (<1.2); Partial Thromboplastin Time 40.1 sec (22.0-30.0); Prothrombin Time 12.5 sec (10.0-12.5)
[2023-09-19 21:23] LABS: Hepatitis B Surface AB- Quant 19.6 mIU/mL
[2023-09-19 22:03] LABS: ABG Base Excess -9.5 mmol/L; ABG HCO3 18 mmol/L (21-25); ABG Oxygen Saturation 96.5 % (94-97); ABG PCO2 45 mmHg (35-45); ABG PH 7.22 (7.35-7.45); ABG PO2 102 mmHg (83-108); ABG TCO2 20 mmol/L (19-24); Allen Test Performed? Yes
[2023-09-19] MEDS: LACTATED RINGERS 1,000 ML IV ONE (22:36)
[2023-09-19] MEDS: VASOPRESSIN 60 UNIT in SODIUM CHLORIDE 0.9% 150 ML IV SCH (23:39)
[2023-09-20] MEDS: NOREPINEPHRINE 8 MG in SODIUM CHLORIDE 0.9% 250 ML IV SCH (02:12)
[2023-09-20 04:04] LABS: Glucose,Whole Blood 188 mg/dL (70-110)
[2023-09-20 04:40] LABS: ABG Base Excess -10.4 mmol/L; ABG HCO3 18 mmol/L (21-25); ABG Oxygen Saturation 95.1 % (94-97); ABG PCO2 45 mmHg (35-45); ABG PO2 88 mmHg (83-108); ABG TCO2 19 mmol/L (19-24); Allen Test Performed? Yes
[2023-09-20 05:03] LABS: ALT 200 U/L (4-49); AST 420 U/L (17-59); African American GFR (CKD) 9 (>60 ml/min/1.73 sqM); Albumin 2.5 g/dL (3.5-5.0); Alkaline Phosphatase 109 U/L (38-126); Anion Gap 16 mmol/L; Blood Urea Nitrogen 76 mg/dL (9-20); Carbon Dioxide 15 mmol/L (22-30); Chloride 92 mmol/L (98-107); Glucose 171 mg/dL (74-99); Magnesium 2.1 mg/dL (1.6-2.3); Non-African American GFR(CKD) 8 (>60 ml/min/1.73 sqM); Potassium 4.2 mmol/L (3.5-5.1); Sodium 123 mmol/L (137-145); Total Bilirubin 1.2 mg/dL (0.2-1.3); Total Protein 4.9 g/dL (6.3-8.2)
[2023-09-20 05:08] LABS: Vancomycin,Random 18.7 ug/mL
[2023-09-20 05:17] LABS: Calcium 5.9 mg/dL (8.4-10.2)
[2023-09-20] MEDS: CALCIUM GLUCONATE IN NACL 2 GM in SALINE 1 100ML.BAG IVPB ONE (06:32)
[2023-09-20 06:42] LABS: Basophils # (A) 0.1 k/uL (0-0.2); Basophils % (A) 0 %; Eosinophils # (A) 0.3 k/uL (0-0.7); Eosinophils % (A) 1 %; HCT 32.6 % (39.0-53.0); Lymphocytes # (A) 0.4 k/uL (1.0-4.8); Lymphocytes % (A) 1 %; MCH 32.5 pg (25.0-35.0); MCHC 33.7 g/dL (31.0-37.0); MCV 96.5 fL (80.0-100.0); Mean Platelet Volume 11.1; Monocytes # (A) 1.1 k/uL (0-1.0); Monocytes % (A) 4 %; Neutrophils # (A) 24.9 k/uL (1.3-7.7); Neutrophils % (A) 93 %; Platelet Count 225 k/uL (150-450); RBC 3.38 m/uL (4.30-5.90); RDW 14.9 % (11.5-15.5); WBC 26.8 k/uL (3.8-10.6)
--- NOTE | 2023-09-20 07:39 | P.PN ---
Subjective Progress Note Date: 09/20/23 PROGRESS NOTE The patient is a 58-year-old male with a known history of hypertension, hyperlipidemia, chronic tobacco use who presented with progressive dyspnea and evidence of extensive pneumonia. He had mild troponin elevation. During the afternoon he became more dyspneic requiring mechanical ventilation. He is intubated and sedated. He continues to be in sinus mechanism. He is requiring vasopressors. His urine output was low but improving. There is no evidence of atrial fibrillation. He had an echocardiogram pending. In March 2023 his left ventricle systolic function was normal with no significant valvular disease. His chest x-ray revealed significant opacification, more prominent on the right lung Medications: Plavix 75 mg daily, metoprolol 25 mg twice a day, Zithromax, cefepime, Nimbex, norepinephrine PHYSICAL EXAMINATION: Blood pressure 99/53 heart rate 95, afebrile. Intubated and sedated LUNGS: Clear to auscultation anteriorly HEART: Regular rate and rhythm, S1, S2. No S3. No systolic murmur ABDOMEN: Soft, no organomegaly EXTREMETIES: No edema LAB: pH 7.2, pO2 88, WBC 26.8, hemoglobin 11. BUN 76, creatinine 6.85. Potassium 4.2. IMPRESSION: 1. Acute respiratory failure with extensive pneumonia requiring mechanical ventilation 2. Acute renal injury 3. Troponin elevation secondary to type II event with pneumonia and acute renal injury 4. History of CAD 5. History of chronic tobacco use PLAN: 1. Echo with Doppler to evaluate systolic function 2. Continue supportive care 3. Follow renal functions 4. Depending on his progress further recommendations will be made, prognosis is guarded. Objective - Vital Signs Vital signs: Vital Signs Temp 97 F L 09/20/23 04:00 Pulse 95 09/20/23 07:00 Resp 30 H 09/20/23 07:00 BP 99/53 09/20/23 07:00 Pulse Ox 91 L 09/20/23 07:00 FiO2 90 09/20/23 04:00 Intake & Output 09/19/23 09/20/23 09/20/23 18:59 06:59 18:59 Intake Total 32.591 5398.171 106 Output Total 632 113 20 Balance -817.292 2192.171 86 Weight 83.915 kg Intake: IV 1668 106 A line 9 3 ACETAMINOPHEN IV (For NPO 100 ) 1,000 mg In Empty Bag 1 bag @ 400 mls/hr IVPB Q6HR PRN Rx#:[id number] Azithromycin 500 mg In 250 Sodium Chloride 0.9% 250 ml @ 250 mls/hr IVPB DAILY@1700 [facility] Rx#: [id number] CVP 9 3 Calcium Gluconate in NaCl 100 2 gm In Saline 1 100ml. bag @ 100 mls/hr IVPB ONCE ONE Rx#:[id number] Sodium Chloride 0.45% 1, 1200 100 000 ml @ 100 mls/hr IV . [id number] [facility]ANNA with Sodium Bicarb (1 Meq/ml) 150 ml Rx#:[id number] Intake, IV Titration 32.591 3730.171 Amount Cisatracurium 200 mg In 26.473 Sodium Chloride 0.9% 180 ml @ 1 MCG/KG/MIN 5.035 mls/hr IV .Q24H [facility] Rx#: [id number] Lactated Ringers 1,000 ml 1000 @ 999 mls/hr IV .Q1H1M ONE Rx#:[id number] Norepinephrine 4 mg In 9.431 427.500 Sodium Chloride 0.9% 250 ml @ 0.03 MCG/KG/MIN 9. 591 mls/hr IV .Q24H [facility] Rx#:[id number] Norepinephrine 8 mg In 153.581 Sodium Chloride 0.9% 250 ml @ 0.03 MCG/KG/MIN 4. 871 mls/hr IV .Q24H [facility] Rx#:[id number] Sodium Chloride 0.9% 1, 1000 000 ml @ 999 mls/hr IV . Q1H1M ONE Rx#:[id number] Sodium Chloride 0.9% 1, 1000 000 ml @ 999 mls/hr IV . Q1H1M ONE Rx#:[id number] fentaNYL (PF). 1,000 mcg 22.617 In Sodium Chloride 0.9% 80 ml @ 0.5 MCG/KG/HR 4. 196 mls/hr IV .[id number] [facility] Rx#:[id number] propofoL 1,000 mg In 23.160 100.000 Empty Bag 1 bag @ 15 MCG/ KG/MIN 7.552 mls/hr IV . [id number] [facility] Rx#:[id number] Output: Urine 632 113 20 Other: Voiding Method Indwelling Catheter Indwelling Catheter - Labs CBC & Chem 7: 09/20/23 04:33 09/20/23 04:33 Labs: Abnormal Lab Results - Last 24 Hours (Table) 09/19/23 09/19/23 09/19/23 Range/Units 07:54 07:54 10:30 WBC (3.8-10.6) k/uL RBC (4.30-5.90) m/uL Hgb (13.0-17.5) gm/dL Hct (39.0-53.0) % Neutrophils # (1.3-7.7) k/uL Lymphocytes # (1.0-4.8) k/uL Monocytes # (0-1.0) k/uL INR (<1.2) APTT (22.0-30.0) sec ABG pH (7.35-7.45) ABG pCO2 24 L (35-45) mmHg ABG pO2 (83-108) mmHg ABG HCO3 16 L (21-25) mmol/L ABG Total CO2 17 L (19-24) mmol/L ABG O2 Saturation (94-97) % Sodium (137-145) mmol/L Chloride (98-107) mmol/L Carbon Dioxide (22-30) mmol/L BUN (9-20) mg/dL Creatinine (0.66-1.25) mg/dL Glucose (74-99) mg/dL POC Glucose (mg/dL) (70-110) mg/dL Calcium (8.4-10.2) mg/dL AST (17-59) U/L ALT (4-49) U/L Total Protein (6.3-8.2) g/dL Albumin (3.5-5.0) g/dL Urine Protein 1+ H (Negative) Urine Blood Moderate H (Negative) Urine RBC 22 H (0-5) /hpf Urine WBC 16 H (0-5) /hpf Urine WBC Clumps Few H (None) /hpf Urine Mucus Rare H (None) /hpf Urine Yeast (Budding) Many H (None) /hpf Urine Osmolality 267 L (400-1100) mOsm/kg Hep Bs Antibody (Negative) 09/19/23 09/19/23 09/19/23 Range/Units 10:55 13:16 16:08 WBC (3.8-10.6) k/uL RBC (4.30-5.90) m/uL Hgb (13.0-17.5) gm/dL Hct (39.0-53.0) % Neutrophils # (1.3-7.7) k/uL Lymphocytes # (1.0-4.8) k/uL Monocytes # (0-1.0) k/uL INR (<1.2) APTT (22.0-30.0) sec ABG pH (7.35-7.45) ABG pCO2 (35-45) mmHg ABG pO2 (83-108) mmHg ABG HCO3 (21-25) mmol/L ABG Total CO2 (19-24) mmol/L ABG O2 Saturation (94-97) % Sodium 122 L (137-145) mmol/L Chloride 88 L (98-107) mmol/L Carbon Dioxide 17 L (22-30) mmol/L BUN 62 H (9-20) mg/dL Creatinine 6.48 H (0.66-1.25) mg/dL Glucose (74-99) mg/dL POC Glucose (mg/dL) 150 H (70-110) mg/dL Calcium 6.6 L (8.4-10.2) mg/dL AST (17-59) U/L ALT (4-49) U/L Total Protein (6.3-8.2) g/dL Albumin (3.5-5.0) g/dL Urine Protein (Negative) Urine Blood (Negative) Urine RBC (0-5) /hpf Urine WBC (0-5) /hpf Urine WBC Clumps (None) /hpf Urine Mucus (None) /hpf Urine Yeast (Budding) (None) /hpf Urine Osmolality (400-1100) mOsm/kg Hep Bs Antibody A (Negative) 09/19/23 09/19/23 09/19/23 Range/Units 17:12 17:39 20:45 WBC (3.8-10.6) k/uL RBC (4.30-5.90) m/uL Hgb (13.0-17.5) gm/dL Hct (39.0-53.0) % Neutrophils # (1.3-7.7) k/uL Lymphocytes # (1.0-4.8) k/uL Monocytes # (0-1.0) k/uL INR 1.2 H (<1.2) APTT 40.1 H (22.0-30.0) sec ABG pH 7.16 L* (7.35-7.45) ABG pCO2 61 H (35-45) mmHg ABG pO2 77 L (83-108) mmHg ABG HCO3 (21-25) mmol/L ABG Total CO2 (19-24) mmol/L ABG O2 Saturation 90.7 L (94-97) % Sodium 120 L (137-145) mmol/L Chloride 86 L (98-107) mmol/L Carbon Dioxide 19 L (22-30) mmol/L BUN 67 H (9-20) mg/dL Creatinine 6.78 H (0.66-1.25) mg/dL Glucose 144 H (74-99) mg/dL POC Glucose (mg/dL) (70-110) mg/dL Calcium 5.8 L* (8.4-10.2) mg/dL AST (17-59) U/L ALT (4-49) U/L Total Protein (6.3-8.2) g/dL Albumin (3.5-5.0) g/dL Urine Protein (Negative) Urine Blood (Negative) Urine RBC (0-5) /hpf Urine WBC (0-5) /hpf Urine WBC Clumps (None) /hpf Urine Mucus (None) /hpf Urine Yeast (Budding) (None) /hpf Urine Osmolality (400-1100) mOsm/kg Hep Bs Antibody (Negative) 09/19/23 09/19/23 09/20/23 Range/Units 20:45 22:00 04:02 WBC 21.2 H (3.8-10.6) k/uL RBC 3.10 L (4.30-5.90) m/uL Hgb 9.8 L (13.0-17.5) gm/dL Hct 29.4 L (39.0-53.0) % Neutrophils # 20.3 H (1.3-7.7) k/uL Lymphocytes # 0.5 L (1.0-4.8) k/uL Monocytes # (0-1.0) k/uL INR (<1.2) APTT (22.0-30.0) sec ABG pH 7.22 L (7.35-7.45) ABG pCO2 (35-45) mmHg ABG pO2 (83-108) mmHg ABG HCO3 18 L (21-25) mmol/L ABG Total CO2 (19-24) mmol/L ABG O2 Saturation (94-97) % Sodium (137-145) mmol/L Chloride (98-107) mmol/L Carbon Dioxide (22-30) mmol/L BUN (9-20) mg/dL Creatinine (0.66-1.25) mg/dL Glucose (74-99) mg/dL POC Glucose (mg/dL) 188 H (70-110) mg/dL Calcium (8.4-10.2) mg/dL AST (17-59) U/L ALT (4-49) U/L Total Protein (6.3-8.2) g/dL Albumin (3.5-5.0) g/dL Urine Protein (Negative) Urine Blood (Negative) Urine RBC (0-5) /hpf Urine WBC (0-5) /hpf Urine WBC Clumps (None) /hpf Urine Mucus (None) /hpf Urine Yeast (Budding) (None) /hpf Urine Osmolality (400-1100) mOsm/kg Hep Bs Antibody (Negative) 09/20/23 09/20/23 09/20/23 Range/Units 04:33 04:33 04:38 WBC 26.8 H (3.8-10.6) k/uL RBC 3.38 L (4.30-5.90) m/uL Hgb 11.0 L (13.0-17.5) gm/dL Hct 32.6 L (39.0-53.0) % Neutrophils # 24.9 H (1.3-7.7) k/uL Lymphocytes # 0.4 L (1.0-4.8) k/uL Monocytes # 1.1 H (0-1.0) k/uL INR (<1.2) APTT (22.0-30.0) sec ABG pH 7.20 L (7.35-7.45) ABG pCO2 (35-45) mmHg ABG pO2 (83-108) mmHg ABG HCO3 18 L (21-25) mmol/L ABG Total CO2 (19-24) mmol/L ABG O2 Saturation (94-97) % Sodium 123 L (137-145) mmol/L Chloride 92 L (98-107) mmol/L Carbon Dioxide 15 L (22-30) mmol/L BUN 76 H (9-20) mg/dL Creatinine 6.85 H (0.66-1.25) mg/dL Glucose 171 H (74-99) mg/dL POC Glucose (mg/dL) (70-110) mg/dL Calcium 5.9 L* (8.4-10.2) mg/dL AST 420 H (17-59) U/L ALT 200 H (4-49) U/L Total Protein 4.9 L (6.3-8.2) g/dL Albumin 2.5 L (3.5-5.0) g/dL Urine Protein (Negative) Urine Blood (Negative) Urine RBC (0-5) /hpf Urine WBC (0-5) /hpf Urine WBC Clumps (None) /hpf Urine Mucus (None) /hpf Urine Yeast (Budding) (None) /hpf Urine Osmolality (400-1100) mOsm/kg Hep Bs Antibody (Negative) Microbiology - Last 24 Hours (Table) 09/18/23 13:35 Blood Culture - Preliminary Blood 09/18/23 13:50 Blood Culture - Preliminary Blood
[2023-09-20] MEDS: VANCOMYCIN 1,500 MG in SODIUM CHLORIDE 0.9% 500 ML 500 ML IVPB ONE (09:06)
--- NOTE | 2023-09-20 10:42 | P.PN ---
Subjective patient is seen for follow-up for acute kidney injury. patient was intubated yesterday due to worsening respiratory status. He was also started on pressors, currently maintained on levo fed and vasopressin. FiO2 is at 100%. Chest x-ray shows bilateral infiltrate suggestive off CHF. Urine output at about 20-25 mL an hour. Objective - Vital Signs Vital signs: Vital Signs Temp 97.7 F 09/20/23 08:00 Pulse 90 09/20/23 10:00 Resp 31 H 09/20/23 10:00 BP 131/75 09/20/23 10:00 Pulse Ox 94 L 09/20/23 10:00 FiO2 100 09/20/23 09:20 Intake & Output 09/19/23 09/20/23 09/20/23 18:59 06:59 18:59 Intake Total 32.591 5398.171 634.986 Output Total 632 113 88 Balance -165.733 4222.171 546.986 Weight 83.915 kg 83.915 kg Intake: IV 1668 565 A line 9 12 ACETAMINOPHEN IV (For NPO 100 ) 1,000 mg In Empty Bag 1 bag @ 400 mls/hr IVPB Q6HR PRN Rx#:[id number] Azithromycin 500 mg In 250 Sodium Chloride 0.9% 250 ml @ 250 mls/hr IVPB DAILY@1700 [facility] Rx#: [id number] CVP 9 3 Calcium Gluconate in NaCl 100 100 2 gm In Saline 1 100ml. bag @ 100 mls/hr IVPB ONCE ONE Rx#:[id number] Cefepime 1 gm In Sodium 50 Chloride 0.9% 50 ml @ 12. 5 mls/hr IVPB DAILY [facility] Rx#:[id number] Sodium Chloride 0.45% 1, 1200 400 000 ml @ 100 mls/hr IV . [id number] [facility] with Sodium Bicarb (1 Meq/ml) 150 ml Rx#:[id number] Intake, IV Titration 32.591 3730.171 69.986 Amount Cisatracurium 200 mg In 26.473 Sodium Chloride 0.9% 180 ml @ 1 MCG/KG/MIN 5.035 mls/hr IV .Q24H [facility] Rx#: [id number] Lactated Ringers 1,000 ml 1000 @ 999 mls/hr IV .Q1H1M ONE Rx#:[id number] Norepinephrine 4 mg In 9.431 427.500 Sodium Chloride 0.9% 250 ml @ 0.03 MCG/KG/MIN 9. 591 mls/hr IV .Q24H [facility] Rx#:[id number] Norepinephrine 8 mg In 153.581 Sodium Chloride 0.9% 250 ml @ 0.03 MCG/KG/MIN 4. 871 mls/hr IV .Q24H [facility] Rx#:[id number] Sodium Chloride 0.9% 1, 1000 000 ml @ 999 mls/hr IV . Q1H1M ONE Rx#:[id number] Sodium Chloride 0.9% 1, 1000 000 ml @ 999 mls/hr IV . Q1H1M ONE Rx#:[id number] fentaNYL (PF). 1,000 mcg 22.617 In Sodium Chloride 0.9% 80 ml @ 0.5 MCG/KG/HR 4. 196 mls/hr IV .[id number] [facility] Rx#:[id number] propofoL 1,000 mg In 23.160 100.000 69.986 Empty Bag 1 bag @ 15 MCG/ KG/MIN 7.552 mls/hr IV . [id number] [facility] Rx#:[id number] Output: Urine 632 113 88 Other: Voiding Method Indwelling Catheter Indwelling Catheter ABP, PAP, CO, CI - Last Documented Arterial Blood Pressure 104/56 - Exam patient is sedated and on the vent. Examination of the heart S1 and S2 Examination the lungs bilateral breath sounds are heard Abdomen is soft Examination of lower extremities shows no significant edema. - Labs CBC & Chem 7: 09/20/23 04:33 09/20/23 04:33 Labs: Abnormal Lab Results - Last 24 Hours (Table) 09/19/23 09/19/23 09/19/23 Range/Units 07:54 10:55 13:16 WBC (3.8-10.6) k/uL RBC (4.30-5.90) m/uL Hgb (13.0-17.5) gm/dL Hct (39.0-53.0) % Neutrophils # (1.3-7.7) k/uL Lymphocytes # (1.0-4.8) k/uL Monocytes # (0-1.0) k/uL INR (<1.2) APTT (22.0-30.0) sec ABG pH (7.35-7.45) ABG pCO2 (35-45) mmHg ABG pO2 (83-108) mmHg ABG HCO3 (21-25) mmol/L ABG O2 Saturation (94-97) % Sodium 122 L (137-145) mmol/L Chloride 88 L (98-107) mmol/L Carbon Dioxide 17 L (22-30) mmol/L BUN 62 H (9-20) mg/dL Creatinine 6.48 H (0.66-1.25) mg/dL Glucose (74-99) mg/dL POC Glucose (mg/dL) (70-110) mg/dL Calcium 6.6 L (8.4-10.2) mg/dL AST (17-59) U/L ALT (4-49) U/L Total Protein (6.3-8.2) g/dL Albumin (3.5-5.0) g/dL Urine Osmolality 267 L (400-1100) mOsm/kg Hep Bs Antibody A (Negative) 09/19/23 09/19/23 09/19/23 Range/Units 16:08 17:12 17:39 WBC (3.8-10.6) k/uL RBC (4.30-5.90) m/uL Hgb (13.0-17.5) gm/dL Hct (39.0-53.0) % Neutrophils # (1.3-7.7) k/uL Lymphocytes # (1.0-4.8) k/uL Monocytes # (0-1.0) k/uL INR (<1.2) APTT (22.0-30.0) sec ABG pH 7.16 L* (7.35-7.45) ABG pCO2 61 H (35-45) mmHg ABG pO2 77 L (83-108) mmHg ABG HCO3 (21-25) mmol/L ABG O2 Saturation 90.7 L (94-97) % Sodium 120 L (137-145) mmol/L Chloride 86 L (98-107) mmol/L Carbon Dioxide 19 L (22-30) mmol/L BUN 67 H (9-20) mg/dL Creatinine 6.78 H (0.66-1.25) mg/dL Glucose 144 H (74-99) mg/dL POC Glucose (mg/dL) 150 H (70-110) mg/dL Calcium 5.8 L* (8.4-10.2) mg/dL AST (17-59) U/L ALT (4-49) U/L Total Protein (6.3-8.2) g/dL Albumin (3.5-5.0) g/dL Urine Osmolality (400-1100) mOsm/kg Hep Bs Antibody (Negative) 09/19/23 09/19/23 09/19/23 Range/Units 20:45 20:45 22:00 WBC 21.2 H (3.8-10.6) k/uL RBC 3.10 L (4.30-5.90) m/uL Hgb 9.8 L (13.0-17.5) gm/dL Hct 29.4 L (39.0-53.0) % Neutrophils # 20.3 H (1.3-7.7) k/uL Lymphocytes # 0.5 L (1.0-4.8) k/uL Monocytes # (0-1.0) k/uL INR 1.2 H (<1.2) APTT 40.1 H (22.0-30.0) sec ABG pH 7.22 L (7.35-7.45) ABG pCO2 (35-45) mmHg ABG pO2 (83-108) mmHg ABG HCO3 18 L (21-25) mmol/L ABG O2 Saturation (94-97) % Sodium (137-145) mmol/L Chloride (98-107) mmol/L Carbon Dioxide (22-30) mmol/L BUN (9-20) mg/dL Creatinine (0.66-1.25) mg/dL Glucose (74-99) mg/dL POC Glucose (mg/dL) (70-110) mg/dL Calcium (8.4-10.2) mg/dL AST (17-59) U/L ALT (4-49) U/L Total Protein (6.3-8.2) g/dL Albumin (3.5-5.0) g/dL Urine Osmolality (400-1100) mOsm/kg Hep Bs Antibody (Negative) 09/20/23 09/20/23 09/20/23 Range/Units 04:02 04:33 04:33 WBC 26.8 H (3.8-10.6) k/uL RBC 3.38 L (4.30-5.90) m/uL Hgb 11.0 L (13.0-17.5) gm/dL Hct 32.6 L (39.0-53.0) % Neutrophils # 24.9 H (1.3-7.7) k/uL Lymphocytes # 0.4 L (1.0-4.8) k/uL Monocytes # 1.1 H (0-1.0) k/uL INR (<1.2) APTT (22.0-30.0) sec ABG pH (7.35-7.45) ABG pCO2 (35-45) mmHg ABG pO2 (83-108) mmHg ABG HCO3 (21-25) mmol/L ABG O2 Saturation (94-97) % Sodium 123 L (137-145) mmol/L Chloride 92 L (98-107) mmol/L Carbon Dioxide 15 L (22-30) mmol/L BUN 76 H (9-20) mg/dL Creatinine 6.85 H (0.66-1.25) mg/dL Glucose 171 H (74-99) mg/dL POC Glucose (mg/dL) 188 H (70-110) mg/dL Calcium 5.9 L* (8.4-10.2) mg/dL AST 420 H (17-59) U/L ALT 200 H (4-49) U/L Total Protein 4.9 L (6.3-8.2) g/dL Albumin 2.5 L (3.5-5.0) g/dL Urine Osmolality (400-1100) mOsm/kg Hep Bs Antibody (Negative) 09/20/23 Range/Units 04:38 WBC (3.8-10.6) k/uL RBC (4.30-5.90) m/uL Hgb (13.0-17.5) gm/dL Hct (39.0-53.0) % Neutrophils # (1.3-7.7) k/uL Lymphocytes # (1.0-4.8) k/uL Monocytes # (0-1.0) k/uL INR (<1.2) APTT (22.0-30.0) sec ABG pH 7.20 L (7.35-7.45) ABG pCO2 (35-45) mmHg ABG pO2 (83-108) mmHg ABG HCO3 18 L (21-25) mmol/L ABG O2 Saturation (94-97) % Sodium (137-145) mmol/L Chloride (98-107) mmol/L Carbon Dioxide (22-30) mmol/L BUN (9-20) mg/dL Creatinine (0.66-1.25) mg/dL Glucose (74-99) mg/dL POC Glucose (mg/dL) (70-110) mg/dL Calcium (8.4-10.2) mg/dL AST (17-59) U/L ALT (4-49) U/L Total Protein (6.3-8.2) g/dL Albumin (3.5-5.0) g/dL Urine Osmolality (400-1100) mOsm/kg Hep Bs Antibody (Negative) Microbiology - Last 24 Hours (Table) 09/19/23 07:54 Urine Culture - Final Urine,Voided 09/18/23 13:35 Blood Culture - Preliminary Blood 09/18/23 13:50 Blood Culture - Preliminary Blood Assessment and Plan Assessment: 1. Acute kidney injury, ATN. Secondary to hypotension and underlying infection. Nonoliguric. Rule out underlying GN. Serologies are pending Currently with indwelling Barnes catheter. Ultrasound shows no evidence of obstruction. UA shows 1+ protein and moderate blood WBCs 16. 2. Community-acquired bilateral pneumonia maintained on vancomycin, cefepime and azithromycin 3. Acute hypoxic respiratory failure, on the vent 4. Anion gap metabolic acidosis associated with acute kidney injury. 5. Hypokalemia 6. Hyponatremia, hypovolemic, improving with IV bicarb Plan: DC IV fluids Proceed with hemodialysis today and repeat in a.m. follow-up on serologies rule out underlying GN
--- NOTE | 2023-09-20 11:10 | P.PN ---
Subjective Progress Note Date: 09/20/23 Hospital Course: 58-year-old male with history of hypertension, dyslipidemia, coronary artery d isease presenting with shortness of breath. In the ED, temperature was 103.3, pulse 131, respiratory rate 30, blood pressure 118/86, saturating 88% on room air. WBC 21.2, hemoglobin 13, pH 7.41, pCO2 33, sodium 122, potassium 3.4, bicarb 18, anion gap 20, creatinine 5.94, lactic acid 3.9, magnesium 0.9, total bili 1.8, AST 110, ALT 53, ALP 105, troponin 0.102. Respiratory viral panel negative. Chest x-ray shows multifocal pneumonia right lower lobe greater than left. EKG shows sinus tachycardia with right bundle you block. Pelvic x-ray shows no acute process. Head CT shows no acute process. Respiratory function progressively worsening despite being on broad-spectrum antibiotics. Pu lmonology, nephrology, cardiology consulted. Patient is now intubated, on vasopressors. Will likely need hemodialysis as well. Subjective: Patient seen and examined at bedside. Respiratory function worsening. Was intubated yesterday afternoon. Now on vasopressors. Urine output decreasing, w ill likely need hemodialysis. Did have 1 bowel movement today. Pending bronchoscopy today. Pertinent positives and negatives as discussed above, a complete review of systems was performed and all other systems are negative. Vitals Signs Reviewed. General: Intubated sedated Derm: warm, dry Head: atraumatic, normocephalic, symmetric Eyes: Pupils equal round reactive to light ENT: Nose and ears atraumatic Neck: No thyromegaly, supple Mouth: no lip lesion, moist membranes moist Cardiovascular: S1S2, reg, no murmur, no edema Lungs: Bilateral rhonchi, greater on right, no wheeze, no accessory muscle use, intubated Abdominal: soft, obese abdomen, no guarding, no appreciable organomegaly Ext: no gross muscle atrophy, no contractures Neuro: Sedated Psych: Unable to assess Data Reviewed Today: Pertinent Labs: WBC 26.8, hemoglobin 11, pH 7.2, pCO2 45, bicarb 18, sodium 123, bicarb 15, anion gap 16, creatinine 6.85, calcium 5.9, Phos 9.8, magnesium 2.1, AST 420, ALT 200 Imaging: Chest x-ray independently interpreted, shows persistent multifocal opacities more on the right, worsening compared to yesterday Assessment and Plan: Patient is critically ill, in medical ICU. Prognosis guarded. Septic shock secondary to multifocal pneumonia Acute hypoxic respiratory failure, currently mechanically ventilated Severe leukocytosis Hyponatremia Acute kidney injury Metabolic acidosis Lactic acidosis, resolved Hypomagnesemia, resolved Hypocalcemia Transaminitis Elevated troponin, likely nonischemic -Continue IV vancomycin, monitor renal function, continue IV cefepime 1 g every 8 hours, on IV azithromycin 500 daily - DuoNebs every 4 hours scheduled, Solu-Medrol 60 every 6 hours IV, Perforomist twice daily - Blood cultures no growth to date - Pulmonology following, pending bronchoscopy today, continue to wean vasopressors, currently on sedation -Nephrology note reviewed, IV fluids discontinued, proceed with hemodialysis today, was given calcium gluconate 2 g this morning, also started on PhosLo 3 times daily -Cardiology note reviewed, echocardiogram pending - Continue home Plavix 75 daily, metoprolol 25 twice daily - On telemetry - Hold lisinopril and hydrochlorothiazide DVT ppx: Subcu heparin Code status: Full code Anticipated discharge place: Pending clinical course Anticipated discharge time: Pending clinical course Objective - Vital Signs Vital signs: Vital Signs Temp 97.7 F 09/20/23 08:00 Pulse 96 09/20/23 11:00 Resp 30 H 09/20/23 11:00 BP 109/68 09/20/23 11:00 Pulse Ox 94 L 09/20/23 11:00 FiO2 100 09/20/23 09:20 Intake & Output 09/19/23 09/20/23 09/20/23 18:59 06:59 18:59 Intake Total 32.591 5398.171 634.986 Output Total 632 113 88 Balance -541.522 3359.171 546.986 Weight 83.915 kg 83.915 kg Intake: IV 1668 565 A line 9 12 ACETAMINOPHEN IV (For NPO 100 ) 1,000 mg In Empty Bag 1 bag @ 400 mls/hr IVPB Q6HR PRN Rx#:[id number] Azithromycin 500 mg In 250 Sodium Chloride 0.9% 250 ml @ 250 mls/hr IVPB DAILY@1700 [facility] Rx#: [id number] CVP 9 3 Calcium Gluconate in NaCl 100 100 2 gm In Saline 1 100ml. bag @ 100 mls/hr IVPB ONCE ONE Rx#:[id number] Cefepime 1 gm In Sodium 50 Chloride 0.9% 50 ml @ 12. 5 mls/hr IVPB DAILY [facility] Rx#:[id number] Sodium Chloride 0.45% 1, 1200 400 000 ml @ 100 mls/hr IV . [id number] [facility] with Sodium Bicarb (1 Meq/ml) 150 ml Rx#:[id number] Intake, IV Titration 32.591 3730.171 69.986 Amount Cisatracurium 200 mg In 26.473 Sodium Chloride 0.9% 180 ml @ 1 MCG/KG/MIN 5.035 mls/hr IV .Q24H [facility] Rx#: [id number] Lactated Ringers 1,000 ml 1000 @ 999 mls/hr IV .Q1H1M ONE Rx#:[id number] Norepinephrine 4 mg In 9.431 427.500 Sodium Chloride 0.9% 250 ml @ 0.03 MCG/KG/MIN 9. 591 mls/hr IV .Q24H [facility] Rx#:[id number] Norepinephrine 8 mg In 153.581 Sodium Chloride 0.9% 250 ml @ 0.03 MCG/KG/MIN 4. 871 mls/hr IV .Q24H [facility] Rx#:[id number] Sodium Chloride 0.9% 1, 1000 000 ml @ 999 mls/hr IV . Q1H1M [facility] Rx#:[id number] Sodium Chloride 0.9% 1, 1000 000 ml @ 999 mls/hr IV . Q1H1M [facility] Rx#:[id number] fentaNYL (PF). 1,000 mcg 22.617 In Sodium Chloride 0.9% 80 ml @ 0.5 MCG/KG/HR 4. 196 mls/hr IV .[id number] [facility] Rx#:[id number] propofoL 1,000 mg In 23.160 100.000 69.986 Empty Bag 1 bag @ 15 MCG/ KG/MIN 7.552 mls/hr IV . [id number] [facility] Rx#:[id number] Output: Urine 632 113 88 Other: Voiding Method Indwelling Catheter Indwelling Catheter ABP, PAP, CO, CI - Last Documented Arterial Blood Pressure 104/60 - Labs CBC & Chem 7: 09/20/23 04:33 09/20/23 04:33 Labs: Abnormal Lab Results - Last 24 Hours (Table) 09/19/23 09/19/23 09/19/23 Range/Units 07:54 10:55 13:16 WBC (3.8-10.6) k/uL RBC (4.30-5.90) m/uL Hgb (13.0-17.5) gm/dL Hct (39.0-53.0) % Neutrophils # (1.3-7.7) k/uL Lymphocytes # (1.0-4.8) k/uL Monocytes # (0-1.0) k/uL INR (<1.2) APTT (22.0-30.0) sec ABG pH (7.35-7.45) ABG pCO2 (35-45) mmHg ABG pO2 (83-108) mmHg ABG HCO3 (21-25) mmol/L ABG O2 Saturation (94-97) % Sodium 122 L (137-145) mmol/L Chloride 88 L (98-107) mmol/L Carbon Dioxide 17 L (22-30) mmol/L BUN 62 H (9-20) mg/dL Creatinine 6.48 H (0.66-1.25) mg/dL Glucose (74-99) mg/dL POC Glucose (mg/dL) (70-110) mg/dL Calcium 6.6 L (8.4-10.2) mg/dL Phosphorus (2.5-4.5) mg/dL AST (17-59) U/L ALT (4-49) U/L Total Protein (6.3-8.2) g/dL Albumin (3.5-5.0) g/dL Urine Osmolality 267 L (400-1100) mOsm/kg Hep Bs Antibody A (Negative) 09/19/23 09/19/23 09/19/23 Range/Units 16:08 17:12 17:39 WBC (3.8-10.6) k/uL RBC (4.30-5.90) m/uL Hgb (13.0-17.5) gm/dL Hct (39.0-53.0) % Neutrophils # (1.3-7.7) k/uL Lymphocytes # (1.0-4.8) k/uL Monocytes # (0-1.0) k/uL INR (<1.2) APTT (22.0-30.0) sec ABG pH 7.16 L* (7.35-7.45) ABG pCO2 61 H (35-45) mmHg ABG pO2 77 L (83-108) mmHg ABG HCO3 (21-25) mmol/L ABG O2 Saturation 90.7 L (94-97) % Sodium 120 L (137-145) mmol/L Chloride 86 L (98-107) mmol/L Carbon Dioxide 19 L (22-30) mmol/L BUN 67 H (9-20) mg/dL Creatinine 6.78 H (0.66-1.25) mg/dL Glucose 144 H (74-99) mg/dL POC Glucose (mg/dL) 150 H (70-110) mg/dL Calcium 5.8 L* (8.4-10.2) mg/dL Phosphorus (2.5-4.5) mg/dL AST (17-59) U/L ALT (4-49) U/L Total Protein (6.3-8.2) g/dL Albumin (3.5-5.0) g/dL Urine Osmolality (400-1100) mOsm/kg Hep Bs Antibody (Negative) 09/19/23 09/19/23 09/19/23 Range/Units 20:45 20:45 22:00 WBC 21.2 H (3.8-10.6) k/uL RBC 3.10 L (4.30-5.90) m/uL Hgb 9.8 L (13.0-17.5) gm/dL Hct 29.4 L (39.0-53.0) % Neutrophils # 20.3 H (1.3-7.7) k/uL Lymphocytes # 0.5 L (1.0-4.8) k/uL Monocytes # (0-1.0) k/uL INR 1.2 H (<1.2) APTT 40.1 H (22.0-30.0) sec ABG pH 7.22 L (7.35-7.45) ABG pCO2 (35-45) mmHg ABG pO2 (83-108) mmHg ABG HCO3 18 L (21-25) mmol/L ABG O2 Saturation (94-97) % Sodium (137-145) mmol/L Chloride (98-107) mmol/L Carbon Dioxide (22-30) mmol/L BUN (9-20) mg/dL Creatinine (0.66-1.25) mg/dL Glucose (74-99) mg/dL POC Glucose (mg/dL) (70-110) mg/dL Calcium (8.4-10.2) mg/dL Phosphorus (2.5-4.5) mg/dL AST (17-59) U/L ALT (4-49) U/L Total Protein (6.3-8.2) g/dL Albumin (3.5-5.0) g/dL Urine Osmolality (400-1100) mOsm/kg Hep Bs Antibody (Negative) 09/20/23 09/20/23 09/20/23 Range/Units 04:02 04:33 04:33 WBC 26.8 H (3.8-10.6) k/uL RBC 3.38 L (4.30-5.90) m/uL Hgb 11.0 L (13.0-17.5) gm/dL Hct 32.6 L (39.0-53.0) % Neutrophils # 24.9 H (1.3-7.7) k/uL Lymphocytes # 0.4 L (1.0-4.8) k/uL Monocytes # 1.1 H (0-1.0) k/uL INR (<1.2) APTT (22.0-30.0) sec ABG pH (7.35-7.45) ABG pCO2 (35-45) mmHg ABG pO2 (83-108) mmHg ABG HCO3 (21-25) mmol/L ABG O2 Saturation (94-97) % Sodium 123 L (137-145) mmol/L Chloride 92 L (98-107) mmol/L Carbon Dioxide 15 L (22-30) mmol/L BUN 76 H (9-20) mg/dL Creatinine 6.85 H (0.66-1.25) mg/dL Glucose 171 H (74-99) mg/dL POC Glucose (mg/dL) 188 H (70-110) mg/dL Calcium 5.9 L* (8.4-10.2) mg/dL Phosphorus (2.5-4.5) mg/dL AST 420 H (17-59) U/L ALT 200 H (4-49) U/L Total Protein 4.9 L (6.3-8.2) g/dL Albumin 2.5 L (3.5-5.0) g/dL Urine Osmolality (400-1100) mOsm/kg Hep Bs Antibody (Negative) 09/20/23 09/20/23 Range/Units 04:33 04:38 WBC (3.8-10.6) k/uL RBC (4.30-5.90) m/uL Hgb (13.0-17.5) gm/dL Hct (39.0-53.0) % Neutrophils # (1.3-7.7) k/uL Lymphocytes # (1.0-4.8) k/uL Monocytes # (0-1.0) k/uL INR (<1.2) APTT (22.0-30.0) sec ABG pH 7.20 L (7.35-7.45) ABG pCO2 (35-45) mmHg ABG pO2 (83-108) mmHg ABG HCO3 18 L (21-25) mmol/L ABG O2 Saturation (94-97) % Sodium (137-145) mmol/L Chloride (98-107) mmol/L Carbon Dioxide (22-30) mmol/L BUN (9-20) mg/dL Creatinine (0.66-1.25) mg/dL Glucose (74-99) mg/dL POC Glucose (mg/dL) (70-110) mg/dL Calcium (8.4-10.2) mg/dL Phosphorus 9.8 H* (2.5-4.5) mg/dL AST (17-59) U/L ALT (4-49) U/L Total Protein (6.3-8.2) g/dL Albumin (3.5-5.0) g/dL Urine Osmolality (400-1100) mOsm/kg Hep Bs Antibody (Negative) Microbiology - Last 24 Hours (Table) 09/19/23 07:54 Urine Culture - Final Urine,Voided 09/18/23 13:35 Blood Culture - Preliminary Blood 09/18/23 13:50 Blood Culture - Preliminary Blood
--- NOTE | 2023-09-20 11:58 | US ---
EXAMINATION TYPE: US abdomen limited DATE OF EXAM: 09/20/2023 COMPARISON: 09/19/2023 CLINICAL INDICATION: Male, 58 years old with history of transaminitis, septic shock; TECHNIQUE: Multiple sonographic images of the right upper quadrant are obtained. FINDINGS: EXAM MEASUREMENTS: Liver Length: 19.4 cm Gallbladder Wall: Surgically absent cm CBD: 0.3 cm Right Kidney: 10.3 x 5.5 x 5.9 cm PHOTO CARTOGRAPHER NOTES: Pancreas: wnl Liver: Echogenic area lower right lobe = 2.5 x 3.1 x 2.3 cm Gallbladder: Surgically absent Evidence for sonographic Narvaez's sign: NA CBD: wnl Right Kidney: wnl Trace fluid adjacent to lower right liver lobe IMPRESSION: Indeterminate lesion within the right hepatic lobe. Further evaluation with liver mass protocol MRI r ecommended.
[2023-09-20] MEDS ORDERED: POTAS-SOD-PHOS 278-164-250 MG 1 EACH PACKET PO SCH (12:00)
[2023-09-20] MEDS: HEPARIN SODIUM 1,000 UN/ML (10ML VL) MISCELLANE ONE (12:25)
[2023-09-20] MEDS ORDERED: CALCIUM ACETATE 667 MG TAB PO SCH (12:30)
[2023-09-20] MEDS ORDERED: CALCIUM ACETATE 667 MG TAB NG-TUBE SCH (12:30)
--- NOTE | 2023-09-20 12:40 | P.GSCN ---
History of Present Illness History of present illness: 58-year-old gentleman consulted "gently placement dialysis catheter. 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, no stents, medical mangement Last Myocardial Infarction Date:: 03/2023 History of Any Multi-Drug Resistant Organisms: None Reported Past Surgical History: Appendectomy, Cholecystectomy, Heart Catheterization, Hernia Repair Additional Past Surgical History / Comment(s): knee surgery, shoulder surgery Past Anesthesia/Blood Transfusion Reactions: No Reported Reaction Past Psychological History: No Psychological Hx Reported Smoking Status: Current every day smoker Past Alcohol Use History: Occasional Past Drug Use History: None Reported - Past Family History Mother Additional Family Medical History / Comment(s): alcoholism Father Family Medical History: Dementia Medications and Allergies Home Medications Medication Instructions Recorded Confirmed Type Albuterol Inhaler [Ventolin Hfa 2 puff INHALATION RT-Q4H PRN 03/24/23 09/18/23 History Inhaler] Atorvastatin [Lipitor] 80 mg PO DAILY #30 tab 03/27/23 09/18/23 Rx Clopidogrel [Plavix] 75 mg PO DAILY #30 tab 03/27/23 09/18/23 Rx Metoprolol Tartrate [Lopressor] 25 mg PO BID #60 tab 03/27/23 09/18/23 Rx Nitroglycerin Sl Tabs [Nitrostat] 0.4 mg SUBLINGUAL Q5M PRN #20 tab 03/27/23 09/18/23 Rx Lisinopril-Hctz 10-12.5 mg 1 tab PO DAILY 09/18/23 09/18/23 History [Zestoretic 10-12.5] Omeprazole [PriLOSEC] 40 mg PO DAILY 09/18/23 09/18/23 History Allergies Allergy/AdvReac Type Severity Reaction Status Date / Time aspirin AdvReac Abdominal Verified 09/18/23 14:54 Pain & Chest Pain ibuprofen [From Motrin] AdvReac Abdominal Verified 09/18/23 14:54 Pain & Chest Pain Surgical - Exam Vital Signs Temp Pulse Resp BP Pulse Ox 103.3 F H 131 H 30 H 118/86 88 L 09/18/23 13:24 09/18/23 13:24 09/18/23 13:24 09/18/23 13:24 09/18/23 13:24 Results - Labs 09/20/23 04:33 09/20/23 04:33 Abnormal Lab Results - Last 24 Hours (Table) 09/19/23 09/19/23 09/19/23 Range/Units 07:54 13:16 16:08 WBC (3.8-10.6) k/uL RBC (4.30-5.90) m/uL Hgb (13.0-17.5) gm/dL Hct (39.0-53.0) % Neutrophils # (1.3-7.7) k/uL Lymphocytes # (1.0-4.8) k/uL Monocytes # (0-1.0) k/uL INR (<1.2) APTT (22.0-30.0) sec ABG pH (7.35-7.45) ABG pCO2 (35-45) mmHg ABG pO2 (83-108) mmHg ABG HCO3 (21-25) mmol/L ABG O2 Saturation (94-97) % Sodium (137-145) mmol/L Chloride (98-107) mmol/L Carbon Dioxide (22-30) mmol/L BUN (9-20) mg/dL Creatinine (0.66-1.25) mg/dL Glucose (74-99) mg/dL POC Glucose (mg/dL) 150 H (70-110) mg/dL Calcium (8.4-10.2) mg/dL Phosphorus (2.5-4.5) mg/dL AST (17-59) U/L ALT (4-49) U/L Total Protein (6.3-8.2) g/dL Albumin (3.5-5.0) g/dL Urine Osmolality 267 L (400-1100) mOsm/kg Hep Bs Antibody A (Negative) 09/19/23 09/19/23 09/19/23 Range/Units 17:12 17:39 20:45 WBC (3.8-10.6) k/uL RBC (4.30-5.90) m/uL Hgb (13.0-17.5) gm/dL Hct (39.0-53.0) % Neutrophils # (1.3-7.7) k/uL Lymphocytes # (1.0-4.8) k/uL Monocytes # (0-1.0) k/uL INR 1.2 H (<1.2) APTT 40.1 H (22.0-30.0) sec ABG pH 7.16 L* (7.35-7.45) ABG pCO2 61 H (35-45) mmHg ABG pO2 77 L (83-108) mmHg ABG HCO3 (21-25) mmol/L ABG O2 Saturation 90.7 L (94-97) % Sodium 120 L (137-145) mmol/L Chloride 86 L (98-107) mmol/L Carbon Dioxide 19 L (22-30) mmol/L BUN 67 H (9-20) mg/dL Creatinine 6.78 H (0.66-1.25) mg/dL Glucose 144 H (74-99) mg/dL POC Glucose (mg/dL) (70-110) mg/dL Calcium 5.8 L* (8.4-10.2) mg/dL Phosphorus (2.5-4.5) mg/dL AST (17-59) U/L ALT (4-49) U/L Total Protein (6.3-8.2) g/dL Albumin (3.5-5.0) g/dL Urine Osmolality (400-1100) mOsm/kg Hep Bs Antibody (Negative) 09/19/23 09/19/23 09/20/23 Range/Units 20:45 22:00 04:02 WBC 21.2 H (3.8-10.6) k/uL RBC 3.10 L (4.30-5.90) m/uL Hgb 9.8 L (13.0-17.5) gm/dL Hct 29.4 L (39.0-53.0) % Neutrophils # 20.3 H (1.3-7.7) k/uL Lymphocytes # 0.5 L (1.0-4.8) k/uL Monocytes # (0-1.0) k/uL INR (<1.2) APTT (22.0-30.0) sec ABG pH 7.22 L (7.35-7.45) ABG pCO2 (35-45) mmHg ABG pO2 (83-108) mmHg ABG HCO3 18 L (21-25) mmol/L ABG O2 Saturation (94-97) % Sodium (137-145) mmol/L Chloride (98-107) mmol/L Carbon Dioxide (22-30) mmol/L BUN (9-20) mg/dL Creatinine (0.66-1.25) mg/dL Glucose (74-99) mg/dL POC Glucose (mg/dL) 188 H (70-110) mg/dL Calcium (8.4-10.2) mg/dL Phosphorus (2.5-4.5) mg/dL AST (17-59) U/L ALT (4-49) U/L Total Protein (6.3-8.2) g/dL Albumin (3.5-5.0) g/dL Urine Osmolality (400-1100) mOsm/kg Hep Bs Antibody (Negative) 09/20/23 09/20/23 09/20/23 Range/Units 04:33 04:33 04:33 WBC 26.8 H (3.8-10.6) k/uL RBC 3.38 L (4.30-5.90) m/uL Hgb 11.0 L (13.0-17.5) gm/dL Hct 32.6 L (39.0-53.0) % Neutrophils # 24.9 H (1.3-7.7) k/uL Lymphocytes # 0.4 L (1.0-4.8) k/uL Monocytes # 1.1 H (0-1.0) k/uL INR (<1.2) APTT (22.0-30.0) sec ABG pH (7.35-7.45) ABG pCO2 (35-45) mmHg ABG pO2 (83-108) mmHg ABG HCO3 (21-25) mmol/L ABG O2 Saturation (94-97) % Sodium 123 L (137-145) mmol/L Chloride 92 L (98-107) mmol/L Carbon Dioxide 15 L (22-30) mmol/L BUN 76 H (9-20) mg/dL Creatinine 6.85 H (0.66-1.25) mg/dL Glucose 171 H (74-99) mg/dL POC Glucose (mg/dL) (70-110) mg/dL Calcium 5.9 L* (8.4-10.2) mg/dL Phosphorus 9.8 H* (2.5-4.5) mg/dL AST 420 H (17-59) U/L ALT 200 H (4-49) U/L Total Protein 4.9 L (6.3-8.2) g/dL Albumin 2.5 L (3.5-5.0) g/dL Urine Osmolality (400-1100) mOsm/kg Hep Bs Antibody (Negative) 09/20/23 09/20/23 Range/Units 04:38 11:11 WBC (3.8-10.6) k/uL RBC (4.30-5.90) m/uL Hgb (13.0-17.5) gm/dL Hct (39.0-53.0) % Neutrophils # (1.3-7.7) k/uL Lymphocytes # (1.0-4.8) k/uL Monocytes # (0-1.0) k/uL INR (<1.2) APTT (22.0-30.0) sec ABG pH 7.20 L (7.35-7.45) ABG pCO2 (35-45) mmHg ABG pO2 (83-108) mmHg ABG HCO3 18 L (21-25) mmol/L ABG O2 Saturation (94-97) % Sodium (137-145) mmol/L Chloride (98-107) mmol/L Carbon Dioxide (22-30) mmol/L BUN (9-20) mg/dL Creatinine (0.66-1.25) mg/dL Glucose (74-99) mg/dL POC Glucose (mg/dL) (70-110) mg/dL Calcium 5.8 L* (8.4-10.2) mg/dL Phosphorus (2.5-4.5) mg/dL AST (17-59) U/L ALT (4-49) U/L Total Protein (6.3-8.2) g/dL Albumin (3.5-5.0) g/dL Urine Osmolality (400-1100) mOsm/kg Hep Bs Antibody (Negative) Microbiology - Last 24 Hours (Table) 09/19/23 22:45 Gram Stain - Preliminary Sputum 09/19/23 07:54 Urine Culture - Final Urine,Voided 09/18/23 13:35 Blood Culture - Preliminary Blood 09/18/23 13:50 Blood Culture - Preliminary Blood Diabetes panel 09/19/23 09/20/23 09/20/23 Range/Units 17:12 04:33 11:11 Sodium 120 L 123 L (137-145) mmol/L Potassium 3.6 4.2 (3.5-5.1) mmol/L Chloride 86 L 92 L (98-107) mmol/L Carbon Dioxide 19 L 15 L (22-30) mmol/L BUN 67 H 76 H (9-20) mg/dL Creatinine 6.78 H 6.85 H (0.66-1.25) mg/dL Glucose 144 H 171 H (74-99) mg/dL Calcium 5.8 L* 5.9 L* 5.8 L* (8.4-10.2) mg/dL AST 420 H (17-59) U/L ALT 200 H (4-49) U/L Alkaline Phosphatase 109 (38-126) U/L Total Protein 4.9 L (6.3-8.2) g/dL Albumin 2.5 L (3.5-5.0) g/dL Calcium panel 09/19/23 09/20/23 09/20/23 Range/Units 17:12 04:33 04:33 Calcium 5.8 L* 5.9 L* (8.4-10.2) mg/dL Phosphorus 9.8 H* (2.5-4.5) mg/dL Albumin 2.5 L (3.5-5.0) g/dL 09/20/23 Range/Units 11:11 Calcium 5.8 L* (8.4-10.2) mg/dL Phosphorus (2.5-4.5) mg/dL Albumin (3.5-5.0) g/dL Pituitary panel 09/19/23 09/20/23 09/20/23 Range/Units 17:12 04:33 11:11 Sodium 120 L 123 L (137-145) mmol/L Potassium 3.6 4.2 (3.5-5.1) mmol/L Chloride 86 L 92 L (98-107) mmol/L Carbon Dioxide 19 L 15 L (22-30) mmol/L BUN 67 H 76 H (9-20) mg/dL Creatinine 6.78 H 6.85 H (0.66-1.25) mg/dL Glucose 144 H 171 H (74-99) mg/dL Calcium 5.8 L* 5.9 L* 5.8 L* (8.4-10.2) mg/dL Adrenal panel 09/19/23 09/20/23 09/20/23 Range/Units 17:12 04:33 11:11 Sodium 120 L 123 L (137-145) mmol/L Potassium 3.6 4.2 (3.5-5.1) mmol/L Chloride 86 L 92 L (98-107) mmol/L Carbon Dioxide 19 L 15 L (22-30) mmol/L BUN 67 H 76 H (9-20) mg/dL Creatinine 6.78 H 6.85 H (0.66-1.25) mg/dL Glucose 144 H 171 H (74-99) mg/dL Calcium 5.8 L* 5.9 L* 5.8 L* (8.4-10.2) mg/dL Total Bilirubin 1.2 (0.2-1.3) mg/dL AST 420 H (17-59) U/L ALT 200 H (4-49) U/L Alkaline Phosphatase 109 (38-126) U/L Total Protein 4.9 L (6.3-8.2) g/dL Albumin 2.5 L (3.5-5.0) g/dL
--- NOTE | 2023-09-20 12:42 | P.PCN ---
Description of Procedure: Preop diagnosis acute kidney injury pneumonia congestive heart failure Postop the same Procedure ultrasound-guided right femoral dialysis catheter placed patient patient groin was prepped draped for Prestel manner 1% lidocaine were infiltrated after that ultrasound-guided micropuncture introduced right femoral vein micropuncture guide was passed and 4 Qatari dilator was brought out of the guidewire. Passed regular guidewire without any resistance dilator was advanced over a guidewire then we placed a dialysis catheter and flushed with heparin saline hep-locked secured with 3-0 nylon dressing applied patient tarted the procedure well
--- NOTE | 2023-09-20 12:43 | XR ---
EXAMINATION TYPE: XR chest 1V portable DATE OF EXAM: 09/20/2023 COMPARISON: 09/19/2023 INDICATION: Tube placement TECHNIQUE: Single frontal view of the chest is obtained. FINDINGS: The heart size is mildly prominent. The pulmonary vasculature is normal. Diffuse bilateral lung infiltrates are present greater on the right. There is silhouetting of the dandy phragms. Findings are similar to comparison. Endotracheal tube tip is above the teressa. Nasogastric tube tip is within the left upper quadrant of the abdomen. Central venous catheter from the left has the tip in the superior vena cava region. IMPRESSION: 1. Diffuse bilateral lung infiltrates similar to comparison. Continued follow-up is recommended. 2. Lines and catheters discussed above.
--- NOTE | 2023-09-20 12:57 | P.PN ---
Subjective Progress Note Date: 09/20/23 Patient is a 58-year-old white male with past medical history significant for hypertension, hyperlipidemia, nonocclusive coronary artery disease, and current everyday smoker. I am seeing this patient in the emergency room, after he presented yesterday afternoon with a chief complaint of generalized weakness, fall, shortness of breath and a productive cough. Patient states that starting Tuesday he developed a productive cough with yellow to green sputum. He progressively became more short of breath over the following days. Denies chest pain or hemoptysis. He noticed that he started developing fevers 2 nights ago. He has progressively become more weak. He has had reduced appetite and has not been drinking many oral fluids. He has been having nausea without vomiting. He had a fall yesterday. Denies hitting his head. He states that he more so lowered himself to the floor. States that he should have came in sooner. He is currently sitting in bed, on 3 L/min nasal cannula, he appears dyspneic. He is tachypneic with accessory muscle use. He was noted to be febrile on arrival with a Tmax of 103.3 F, which has been treated with Tylenol.. Chest x-ray demonstrates bilateral infiltrates, greater on the right mid and lower lobes. CBC on arrival demonstrates some leukocytosis with a WBC count of 21.2, otherwise unremarkable. BMP from yesterday has multiple electrolyte abnormalities including: Sodium 123, potassium 3.3, chloride 90, serum bicarb 14, BUN 53, creatinine 6.05, glucose 97. Lactic acid level was elevated at 3.9 and is down to 1.6. Magnesium level 0.9. LFTs mildly elevated. Total bili 1.8. Troponins elevated at 0.102, 0.116, and 0.132 respectively. Negative for influenza, RSV, COVID. Patient has been covered on broad-spectrum antibiotics including vancomycin, Zosyn, and azithromycin. Patient's current respiratory status is labile. On today's evaluation of 09/20/2023, the patient is being seen for a follow-up. Currently, the patient intubated on mechanical ventilator and sedated and paralyzed. This morning, the patient is on a propofol running at 30 mcg/kg/min and the patient is also on fentanyl at 0.3 mcg/kg/h. The patient is on Nimbex at 1 mcg/kg/min. While being on the mechanical ventilator, the patient assist- control mode at a rate of 30, tidal volume of 400, FiO2 is at 90% with a PEEP of 12. Urine output is in order of 20 to 30 cc an hour. Patient remains on norepinephrine running at 0.25 mcg/kg/min and the patient is also on physiologic dose of vasopressin. While on the mechanical ventilator, the peak airway pressure is around 20, CVP is at 16. The patient was resuscitated with IV fluids and the fluid balance is +4.6 L over the past 24 hours. The blood gas shows a pH of 7.2 with a pCO2 of 45 and a pO2 of 86. Chest x-ray is consistent with bilateral pneumonia. The white cell count today is at 26.8 with a hemoglobin of 11 and a platelet count of 225. Sodium is at 123, potassium level is at 4.2, serum bicarb is at 15, BUN is at 7 6. Creatinine 6.85. The patient total calcium level is at 5.9 and the corrected calcium level is at 7.1. Phosphorus level is at 9.8. LFTs show an bilirubin of 1.2, AST of 420, ALT of 200. The patient remains on a combination of antibiotics including IV cefepime, vancomycin and Zithromax. I performed a bronchoscopy endobronchial lavage of the right lower lobe. There was purulent respiratory secretions the right lung base that was suctioned out without any major difficulties. Blood cultures are negative thus far. The patient was also started on enteral feeding for nutritio nal support. Abdominal ultrasound showed normal common bile duct, normal kidneys without evidence of any hydronephrosis. Objective - Vital Signs Vital signs: Vital Signs Temp 97.7 F 09/20/23 08:00 Pulse 96 09/20/23 08:33 Resp 30 H 09/20/23 08:00 BP 95/52 09/20/23 08:00 Pulse Ox 91 L 09/20/23 08:00 FiO2 90 09/20/23 08:21 Intake & Output 09/19/23 09/20/23 09/20/23 18:59 06:59 18:59 Intake Total 32.591 5398.171 428.986 Output Total 632 113 43 Balance -292.822 0504.171 385.986 Weight 83.915 kg 83.915 kg Intake: IV 1668 359 A line 9 6 ACETAMINOPHEN IV (For NPO 100 ) 1,000 mg In Empty Bag 1 bag @ 400 mls/hr IVPB Q6HR PRN Rx#:[id number] Azithromycin 500 mg In 250 Sodium Chloride 0.9% 250 ml @ 250 mls/hr IVPB DAILY@1700 REPLACED BY [facility] Rx#: [id number] CVP 9 3 Calcium Gluconate in NaCl 100 100 2 gm In Saline 1 100ml. bag @ 100 mls/hr IVPB ONCE ONE Rx#:[id number] Cefepime 1 gm In Sodium 50 Chloride 0.9% 50 ml @ 12. 5 mls/hr IVPB DAILY REPLACED BY [facility] Rx#:[id number] Sodium Chloride 0.45% 1, 1200 200 000 ml @ 100 mls/hr IV . [id number] DANNA with Sodium Bicarb (1 Meq/ml) 150 ml Rx#:[id number] Intake, IV Titration 32.591 3730.171 69.986 Amount Cisatracurium 200 mg In 26.473 Sodium Chloride 0.9% 180 ml @ 1 MCG/KG/MIN 5.035 mls/hr IV .Q24H REPLACED BY [facility] Rx#: [id number] Lactated Ringers 1,000 ml 1000 @ 999 mls/hr IV .Q1H1M ONE Rx#:[id number] Norepinephrine 4 mg In 9.431 427.500 Sodium Chloride 0.9% 250 ml @ 0.03 MCG/KG/MIN 9. 591 mls/hr IV .Q24H REPLACED BY [facility] Rx#:[id number] Norepinephrine 8 mg In 153.581 Sodium Chloride 0.9% 250 ml @ 0.03 MCG/KG/MIN 4. 871 mls/hr IV .Q24H REPLACED BY [facility] Rx#:[id number] Sodium Chloride 0.9% 1, 1000 000 ml @ 999 mls/hr IV . Q1H1M ONE Rx#:[id number] Sodium Chloride 0.9% 1, 1000 000 ml @ 999 mls/hr IV . Q1H1M ONE Rx#:[id number] fentaNYL (PF). 1,000 mcg 22.617 In Sodium Chloride 0.9% 80 ml @ 0.5 MCG/KG/HR 4. 196 mls/hr IV .[id number] REPLACED BY [facility] Rx#:[id number] propofoL 1,000 mg In 23.160 100.000 69.986 Empty Bag 1 bag @ 15 MCG/ KG/MIN 7.552 mls/hr IV . [id number] REPLACED BY [facility] Rx#:[id number] Output: Urine 632 113 43 Other: Voiding Method Indwelling Catheter Indwelling Catheter - Exam GENERAL EXAM: Alert, 58-year-old white male, intubated, sedated and paralyzed. The patient has an orogastric and orotracheal tube are both in place. HEAD: Normocephalic and atraumatic EYES: Normal reaction of pupils, equal size. NOSE: Clear with pink turbinates. THROAT: No erythema or exudates. NECK: No masses, no JVD. CHEST: No chest wall deformity. LUNGS: Equal air entry with diffuse rhonchi and expiratory wheezing with b ibasilar inspiratory crackles. CVS: S1 and S2 normal with no audible murmur, regular rhythm. No extra heart sounds ABDOMEN: No hepatosplenomegaly, active bowel sounds, no guarding or rigidity. SPINE: No scoliosis or deformity SKIN: No rashes CENTRAL NERVOUS SYSTEM: the patient is sedated and paralyzed at this point in time. Pupils are equal reactive to light. EXTREMITIES: There is no peripheral edema, clubbing, or cyanosis. Peripheral pulses are intact. - Labs CBC & Chem 7: 09/20/23 04:33 09/20/23 04:33 Labs: Abnormal Lab Results - Last 24 Hours (Table) 09/19/23 09/19/23 09/19/23 Range/Units 07:54 10:30 10:55 WBC (3.8-10.6) k/uL RBC (4.30-5.90) m/uL Hgb (13.0-17.5) gm/dL Hct (39.0-53.0) % Neutrophils # (1.3-7.7) k/uL Lymphocytes # (1.0-4.8) k/uL Monocytes # (0-1.0) k/uL INR (<1.2) APTT (22.0-30.0) sec ABG pH (7.35-7.45) ABG pCO2 24 L (35-45) mmHg ABG pO2 (83-108) mmHg ABG HCO3 16 L (21-25) mmol/L ABG Total CO2 17 L (19-24) mmol/L ABG O2 Saturation (94-97) % Sodium 122 L (137-145) mmol/L Chloride 88 L (98-107) mmol/L Carbon Dioxide 17 L (22-30) mmol/L BUN 62 H (9-20) mg/dL Creatinine 6.48 H (0.66-1.25) mg/dL Glucose (74-99) mg/dL POC Glucose (mg/dL) (70-110) mg/dL Calcium 6.6 L (8.4-10.2) mg/dL AST (17-59) U/L ALT (4-49) U/L Total Protein (6.3-8.2) g/dL Albumin (3.5-5.0) g/dL Urine Osmolality 267 L (400-1100) mOsm/kg Hep Bs Antibody (Negative) 09/19/23 09/19/23 09/19/23 Range/Units 13:16 16:08 17:12 WBC (3.8-10.6) k/uL RBC (4.30-5.90) m/uL Hgb (13.0-17.5) gm/dL Hct (39.0-53.0) % Neutrophils # (1.3-7.7) k/uL Lymphocytes # (1.0-4.8) k/uL Monocytes # (0-1.0) k/uL INR (<1.2) APTT (22.0-30.0) sec ABG pH (7.35-7.45) ABG pCO2 (35-45) mmHg ABG pO2 (83-108) mmHg ABG HCO3 (21-25) mmol/L ABG Total CO2 (19-24) mmol/L ABG O2 Saturation (94-97) % Sodium 120 L (137-145) mmol/L Chloride 86 L (98-107) mmol/L Carbon Dioxide 19 L (22-30) mmol/L BUN 67 H (9-20) mg/dL Creatinine 6.78 H (0.66-1.25) mg/dL Glucose 144 H (74-99) mg/dL POC Glucose (mg/dL) 150 H (70-110) mg/dL Calcium 5.8 L* (8.4-10.2) mg/dL AST (17-59) U/L ALT (4-49) U/L Total Protein (6.3-8.2) g/dL Albumin (3.5-5.0) g/dL Urine Osmolality (400-1100) mOsm/kg Hep Bs Antibody A (Negative) 09/19/23 09/19/23 09/19/23 Range/Units 17:39 20:45 20:45 WBC 21.2 H (3.8-10.6) k/uL RBC 3.10 L (4.30-5.90) m/uL Hgb 9.8 L (13.0-17.5) gm/dL Hct 29.4 L (39.0-53.0) % Neutrophils # 20.3 H (1.3-7.7) k/uL Lymphocytes # 0.5 L (1.0-4.8) k/uL Monocytes # (0-1.0) k/uL INR 1.2 H (<1.2) APTT 40.1 H (22.0-30.0) sec ABG pH 7.16 L* (7.35-7.45) ABG pCO2 61 H (35-45) mmHg ABG pO2 77 L (83-108) mmHg ABG HCO3 (21-25) mmol/L ABG Total CO2 (19-24) mmol/L ABG O2 Saturation 90.7 L (94-97) % Sodium (137-145) mmol/L Chloride (98-107) mmol/L Carbon Dioxide (22-30) mmol/L BUN (9-20) mg/dL Creatinine (0.66-1.25) mg/dL Glucose (74-99) mg/dL POC Glucose (mg/dL) (70-110) mg/dL Calcium (8.4-10.2) mg/dL AST (17-59) U/L ALT (4-49) U/L Total Protein (6.3-8.2) g/dL Albumin (3.5-5.0) g/dL Urine Osmolality (400-1100) mOsm/kg Hep Bs Antibody (Negative) 09/19/23 09/20/23 09/20/23 Range/Units 22:00 04:02 04:33 WBC (3.8-10.6) k/uL RBC (4.30-5.90) m/uL Hgb (13.0-17.5) gm/dL Hct (39.0-53.0) % Neutrophils # (1.3-7.7) k/uL Lymphocytes # (1.0-4.8) k/uL Monocytes # (0-1.0) k/uL INR (<1.2) APTT (22.0-30.0) sec ABG pH 7.22 L (7.35-7.45) ABG pCO2 (35-45) mmHg ABG pO2 (83-108) mmHg ABG HCO3 18 L (21-25) mmol/L ABG Total CO2 (19-24) mmol/L ABG O2 Saturation (94-97) % Sodium 123 L (137-145) mmol/L Chloride 92 L (98-107) mmol/L Carbon Dioxide 15 L (22-30) mmol/L BUN 76 H (9-20) mg/dL Creatinine 6.85 H (0.66-1.25) mg/dL Glucose 171 H (74-99) mg/dL POC Glucose (mg/dL) 188 H (70-110) mg/dL Calcium 5.9 L* (8.4-10.2) mg/dL AST 420 H (17-59) U/L ALT 200 H (4-49) U/L Total Protein 4.9 L (6.3-8.2) g/dL Albumin 2.5 L (3.5-5.0) g/dL Urine Osmolality (400-1100) mOsm/kg Hep Bs Antibody (Negative) 09/20/23 09/20/23 Range/Units 04:33 04:38 WBC 26.8 H (3.8-10.6) k/uL RBC 3.38 L (4.30-5.90) m/uL Hgb 11.0 L (13.0-17.5) gm/dL Hct 32.6 L (39.0-53.0) % Neutrophils # 24.9 H (1.3-7.7) k/uL Lymphocytes # 0.4 L (1.0-4.8) k/uL Monocytes # 1.1 H (0-1.0) k/uL INR (<1.2) APTT (22.0-30.0) sec ABG pH 7.20 L (7.35-7.45) ABG pCO2 (35-45) mmHg ABG pO2 (83-108) mmHg ABG HCO3 18 L (21-25) mmol/L ABG Total CO2 (19-24) mmol/L ABG O2 Saturation (94-97) % Sodium (137-145) mmol/L Chloride (98-107) mmol/L Carbon Dioxide (22-30) mmol/L BUN (9-20) mg/dL Creatinine (0.66-1.25) mg/dL Glucose (74-99) mg/dL POC Glucose (mg/dL) (70-110) mg/dL Calcium (8.4-10.2) mg/dL AST (17-59) U/L ALT (4-49) U/L Total Protein (6.3-8.2) g/dL Albumin (3.5-5.0) g/dL Urine Osmolality (400-1100) mOsm/kg Hep Bs Antibody (Negative) Microbiology - Last 24 Hours (Table) 09/19/23 07:54 Urine Culture - Final Urine,Voided 09/18/23 13:35 Blood Culture - Preliminary Blood 09/18/23 13:50 Blood Culture - Preliminary Blood Assessment and Plan Assessment: Acute hypoxic respiratory failure secondary to bilateral pneumonia, the patient is currently intubated on mechanical ventilator. Intubation was performed on 09/19/2023. Bronchoscopy endobronchial lavage of the right lower lobe was done. The bronchial lavage was sent for microbial culture analysis. The viral screen at time of admission was negative. Shock, likely septic in nature, headache resuscitated IV fluids and the patient is currently on pressors, the patient is on a higher dose of norepinephrine and vasopressin physiologic dose. Acute COPD exacerbation secondary to above Severe dehydration at time of admission and the patient has been medically resuscitated IV fluids. CVP is up to 16. Multiple electrolyte abnormalities including hyponatremia, hypokalemia, severe hypomagnesemia, which are being replaced Acute kidney injury, likely secondary to severe dehydration, sepsis, and acute tubular necrosis. No evidence of any hydronephrosis. The patient has diminished urine output and the creatinine remains elevated. Nephrology is on the case and the patient is being considered for hemodialysis. Mild transaminitis, secondary to sepsis Elevated troponins, likely supply/demand mismatch History of hypertension History of hyperlipidemia History of coronary artery disease Current everyday smoker, with a 30 to 40 pack year history Plan Keep the patient sedated and paralyzed. The patient is currently on a combin ation of propofol and fentanyl and Nimbex. Continue ventilator support and increase the PEEP up to 15 and gradually wean down FiO2 as tolerated Bronchoscopy was performed endobronchial lavage of the right lower lobe. The patient will be antibiotic coverage for now. Awaiting results of blood culture Will consult with nephrology regarding the renal failure. Will consult vascular surgery and proceed with a insertion of the vascular access for hemodialysis. Continue pressors and the patient is currently on a combination norepinephrine and vasopressin Continue bronchodilators with DuoNeb updrafts [id number] Continue with same antibiotic coverage includes IV cefepime vancomycin and Zithromax Continue Solu-Medrol Initiate enteral feeding for nutritional support Continue bicarb infusion for another 24 hours Will continue to follow make further recommendations based on the progress. Condition is critical. Family has been updated. This evaluation was done more than 30 minutes. Case is being discussed and coordinated with the various consultants involved in the care of this patient. This evaluation was done more than 30 minutes. Time with Patient: Greater than 30
--- NOTE | 2023-09-20 13:03 | P.PCN ---
Date of Procedure: 09/20/23 Preoperative Diagnosis: Bilateral pneumonia Postoperative Diagnosis: Same Procedure(s) Performed: Bronchoscopy endobronchial lavage of the right lower lobe Anesthesia: ARTEM Surgeon: Noah Varghese Estimated Blood Loss (ml): 0 Pathology: other Condition: critical Disposition: ICU Operative Findings: Bronchoscopy and bronchoalveolar lavage of the right lower lobe This patient is already intubated on mechanical ventilator. Patient is sedated and paralyzed. Using the disposable bronchoscope, the procedure was completed. The flexible bronchoscope was easily passed through the orotracheal tube and a complete airway examination was done. Airways visualized including distal trachea, bilateral mainstem bronchi, right upper lobe bronchus, bronchus intermedius, right middle lobe and right lower lobe bronchus and the various 10 segments on the right and examination of the left side include the left upper lobe bronchus and the left lower lobe bronchus and the various 8 segments on the left. There was significant amount of purulence poor secretion in the right lower lobe. Otherwise no abnormalities identified. No secretions. No mucosal abnormalities. The bronchoscope was wedged into anterior segment of the right lower lobe. A total of 40 cc of saline was infused. 20 cc was aspirated. Aspirate was nonbloody. This was sent for microbial cultures and analysis. Bronchoscope was removed. Oxygen saturations throughout the procedure. Patient tolerated the procedure well without any hemodynamic instability.
[2023-09-20 13:34] LABS: Anti-Glomerular Basement Memb <1.5 U/mL (<7.0)
[2023-09-20 14:04] LABS: C-ANCA <1:20 Titer (<1:20)
[2023-09-20] MEDS: CALCIUM CARBONATE 500 MG CHEWABLE PO SCH (15:07)
[2023-09-20 18:30] LABS: Glucose,Whole Blood 164 mg/dL (70-110)
[2023-09-20 18:47] LABS: ABG Base Excess -6.2 mmol/L; ABG HCO3 22 mmol/L (21-25); ABG Oxygen Saturation 97.1 % (94-97); ABG PCO2 58 mmHg (35-45); ABG PO2 104 mmHg (83-108); ABG TCO2 24 mmol/L (19-24); Allen Test Performed? Yes
[2023-09-20 18:49] LABS: Basophils % (A) 0 %; Eosinophils # (A) 0.1 k/uL (0-0.7); Eosinophils % (A) 1 %; HCT 32.4 % (39.0-53.0); Lymphocytes # (A) 0.4 k/uL (1.0-4.8); Lymphocytes % (A) 1 %; MCH 32.6 pg (25.0-35.0); Mean Platelet Volume 10.1; Monocytes # (A) 0.9 k/uL (0-1.0); Monocytes % (A) 3 %; Neutrophils % (A) 94 %; Platelet Count 249 k/uL (150-450); Poikilocytosis Slight; RBC 3.37 m/uL (4.30-5.90); RDW 15.2 % (11.5-15.5); WBC 28.6 k/uL (3.8-10.6)
[2023-09-20 18:50] LABS: ABG PH 7.19 (7.35-7.45)
[2023-09-20] MEDS: SODIUM BICARB 8.4% 50 ML SYR (1 MEQ/ML) IV STA (19:03)
[2023-09-20 19:05] LABS: African American GFR (CKD) 15 (>60 ml/min/1.73 sqM); Anion Gap 14 mmol/L; Blood Urea Nitrogen 57 mg/dL (9-20); Carbon Dioxide 20 mmol/L (22-30); Chloride 96 mmol/L (98-107); Glucose 155 mg/dL (74-99); Non-African American GFR(CKD) 13 (>60 ml/min/1.73 sqM); Sodium 130 mmol/L (137-145)
[2023-09-20 19:08] LABS: Magnesium 2.1 mg/dL (1.6-2.3); Phosphorus 8.6 mg/dL (2.5-4.5); Potassium 4.5 mmol/L (3.5-5.1)
[2023-09-20] MEDS: SODIUM BICARB 8.4% 50 ML SYR (1 MEQ/ML) ONE (19:11)
[2023-09-20 19:37] LABS: Anisocytosis (M) Present; Poikilocytosis (M) Present
[2023-09-20 19:58] LABS: ABG Base Excess -4.1 mmol/L; ABG HCO3 23 mmol/L (21-25); ABG Oxygen Saturation 97.8 % (94-97); ABG PCO2 55 mmHg (35-45); ABG PH 7.24 (7.35-7.45); ABG PO2 107 mmHg (83-108); ABG TCO2 25 mmol/L (19-24); Allen Test Performed? Yes
[2023-09-20 20:06] LABS: Glucose,Whole Blood 149 mg/dL (70-110)
[2023-09-20] MEDS: LEVOFLOXACIN 750MG-D5W PMX 750 MG in DEXTROSE/WATER 1 150ML.BAG IVPB ONE (20:18)
[2023-09-20 21:15] LABS: Appearance,BF Turbid (Clear)
[2023-09-20 21:16] LABS: RBC, Body Fluid 450 /UL (0-2000)
[2023-09-21 00:46] LABS: Glucose,Whole Blood 200 mg/dL (70-110)
[2023-09-21 04:30] LABS: Glucose,Whole Blood 180 mg/dL (70-110)
[2023-09-21 04:45] LABS: ABG Base Excess -4.7 mmol/L; ABG HCO3 23 mmol/L (21-25); ABG Oxygen Saturation 96.9 % (94-97); ABG PCO2 56 mmHg (35-45); ABG PH 7.22 (7.35-7.45); ABG PO2 101 mmHg (83-108); ABG TCO2 25 mmol/L (19-24); Allen Test Performed? Yes
[2023-09-21 05:26] LABS: Basophils # (A) 0.1 k/uL (0-0.2); Basophils % (A) 0 %; Eosinophils # (A) 0.1 k/uL (0-0.7); Eosinophils % (A) 0 %; HCT 31.7 % (39.0-53.0); HGB 10.7 gm/dL (13.0-17.5); Lymphocytes # (A) 0.2 k/uL (1.0-4.8); Lymphocytes % (A) 1 %; MCH 32.5 pg (25.0-35.0); MCHC 33.7 g/dL (31.0-37.0); MCV 96.4 fL (80.0-100.0); Mean Platelet Volume 9.8; Monocytes # (A) 0.8 k/uL (0-1.0); Monocytes % (A) 3 %; Neutrophils # (A) 24.6 k/uL (1.3-7.7); Neutrophils % (A) 96 %; Platelet Count 235 k/uL (150-450); Poikilocytosis Slight; RBC 3.29 m/uL (4.30-5.90); RDW 15.3 % (11.5-15.5); WBC 25.8 k/uL (3.8-10.6)
[2023-09-21 05:28] LABS: ALT 173 U/L (4-49); AST 239 U/L (17-59); African American GFR (CKD) 11 (>60 ml/min/1.73 sqM); Albumin 2.6 g/dL (3.5-5.0); Alkaline Phosphatase 147 U/L (38-126); Anion Gap 18 mmol/L; Blood Urea Nitrogen 69 mg/dL (9-20); Carbon Dioxide 16 mmol/L (22-30); Chloride 95 mmol/L (98-107); Glucose 157 mg/dL (74-99); Magnesium 2.3 mg/dL (1.6-2.3); Non-African American GFR(CKD) 9 (>60 ml/min/1.73 sqM); Potassium 4.2 mmol/L (3.5-5.1); Sodium 129 mmol/L (137-145); Total Bilirubin 0.8 mg/dL (0.2-1.3)
[2023-09-21 05:37] LABS: Calcium 6.3 mg/dL (8.4-10.2)
--- NOTE | 2023-09-21 06:35 | CA ---
Transthoracic Echo Report Name: Estevan Manning Age: 58 Gender: M : 1965 Exam Date: 09/20/2023 08:28 Exam Location: [facility] Ht (in): 71 Wt (lb): 185 Ordering Physician: Chiqui Trevino Attending/Referring Phys: [id number], Uriel Senior Architectural Designer Venessa Hanna RDCS Procedure CPT: Indications: LV function, abnormal trop Cardiac Hx: Technical Quality: Very technically difficult study Contrast 1: Definity Total Dose (mL): 2 Contrast 2: Total Dose (mL): MEASUREMENTS (Male / Female) Normal Values 2D ECHO LV Diastolic Volume MOD BP 114.0 cm??? 67 - 155 / 56 - 104 cm??? LV Systolic Volume MOD BP 52.4 cm??? 22 - 58 / 19 - 49 cm??? LV Ejection Fraction MOD BP 54.0 % >= 55 % LV Cardiac Index MOD BP 2867.9 cm???/min???m??? LV Diastolic Volume MOD 4C 116.4 cm??? LV Systolic Volume MOD 4C 54.0 cm??? LV Ejection Fraction MOD 4C 53.6 % LV Cardiac Index MOD 4C 2906.8 cm???/min???m??? LV Diastolic Length 4C 8.7 cm LV Systolic Length 4C 7.3 cm LV Diastolic Volume MOD 2C 108.1 cm??? LV Systolic Volume MOD 2C 49.6 cm??? LV Ejection Fraction MOD 2C 54.1 % LV Cardiac Index MOD 2C 2724.3 cm???/min???m??? LV Diastolic Length 2C 8.4 cm LV Systolic Length 2C 7.6 cm LA Volume 54.6 cm??? 18 - 58 / 22 - 52 cm??? LA Volume Index 26.5 cm???/m??? 16 - 28 cm???/m??? DOPPLER AV Peak Velocity 171.2 cm/s AV Peak Gradient 11.7 mmHg AV Mean Velocity 112.5 cm/s AV Mean Gradient 5.7 mmHg AV Velocity Time Integral 28.8 cm LVOT Peak Velocity 138.1 cm/s LVOT Peak Gradient 7.6 mmHg LVOT Velocity Time Integral 24.8 cm MV Area PHT 3.9 cm??? Mitral E Point Velocity 86.8 cm/s Mitral A Point Velocity 80.8 cm/s Mitral E to A Ratio 1.1 MV Deceleration Time 192.2 ms FINDINGS Left Ventricle Left ventricular ejection fraction is estimated at 50-55 %. Mildly decreased left ventricular ejection fraction. Left ventricular cavity size normal. No obvious regional wall motion abnormalities. Right Ventricle Normal right ventricular size and function. Unable to estimate the right ventricular systolic pressure. Right Atrium Normal right atrial size. Left Atrium Normal left atrial size. Mitral Valve Structurally normal mitral valve. No mitral stenosis, regurgitation or prolapse. Aortic Valve Aortic valve not well visualized. No aortic valve stenosis or regurgitation. Tricuspid Valve Structurally normal tricuspid valve. No tricuspid stenosis, regurgitation or prolapse. Pulmonic Valve Pulmonic valve not well visualized. Pericardium No pericardial effusion. Aorta Aortic root and proximal ascending aorta not well visualized. CONCLUSIONS Technically difficult study. Definity was used Normal LV systolic function Poorly visualized intracardiac valves Dilated inferior vena cava Previewed by: Dr. Chace Pettit MD (Electronically Signed) Final Date: 21 Sep 2023 06:34
--- NOTE | 2023-09-21 07:20 | P.PN ---
Subjective Progress Note Date: 09/21/23 PROGRESS NOTE The patient is a 58-year-old male with a known history of hypertension, hyperlipidemia, chronic tobacco use who presented with progressive dyspnea and evidence of extensive pneumonia. He had mild troponin elevation. During the afternoon he became more dyspneic requiring mechanical ventilation. He is intubated and sedated. He continues to be in sinus mechanism. He is requiring vasopressors. His urine output was low but improving. There is no evidence of atrial fibrillation. He had an echocardiogram pending. In March 2023 his left ventricle systolic function was normal with no significant valvular disease. His chest x-ray revealed significant opacification, more prominent on the right lung September 20: The patient remains intubated and sedated. He is off vasopressors. He has poor urinary output. He underwent bronchoscopy yesterday. He continues to be in sinus mechanism. His echocardiogram showed an ejection fraction of 50 to 55% with no clear valvular abnormalities. He underwent placement of catheter for dialysis. Chest x-ray continues to show significant opacification bilaterally, more on the right lung. Medications: Plavix 75 mg daily, metoprolol 25 mg twice a day, Zithromax, cefepime, Nimbex, norepinephrine PHYSICAL EXAMINATION: Blood pressure 113/60 heart rate 108, afebrile. Intubated and sedated LUNGS: Clear to auscultation anteriorly HEART: Regular rate and rhythm, S1, S2. No S3. No systolic murmur ABDOMEN: Soft, no organomegaly EXTREMETIES: No edema LAB: pH 7.22, pO2 101, WBC 25.8, hemoglobin 10.7. BUN 69, creatinine 6.04 . Potassium 4.2. Sodium 129, calcium 6.3. AST 239 IMPRESSION: 1. Acute respiratory failure with extensive pneumonia requiring mechanical ventilation 2. Acute renal injury 3. Troponin elevation secondary to type II event with pneumonia and acute renal injury with preserved systolic function 4. History of CAD 5. History of chronic tobacco use PLAN: 1. Dialysis per renal service 2. Continue supportive care 3. Depending on his progress further recommendations will be made Objective - Vital Signs Vital signs: Vital Signs Temp 99.0 F 09/21/23 04:00 Pulse 108 H 09/21/23 06:00 Resp 30 H 09/21/23 06:00 BP 152/82 09/21/23 06:00 Pulse Ox 97 09/21/23 06:00 FiO2 90 09/21/23 06:00 Intake & Output 09/20/23 09/21/23 09/21/23 18:59 06:59 18:59 Intake Total 1789.918 943.237 Output Total 2629 133 Balance -839.082 810.237 Weight 83.915 kg 100.7 kg Intake: IV 601 78 A line 39 39 CVP 12 39 Calcium Gluconate in NaCl 100 2 gm In Saline 1 100ml. bag @ 100 mls/hr IVPB ONCE ONE Rx#:[id number] Cefepime 1 gm In Sodium 50 Chloride 0.9% 50 ml @ 12. 5 mls/hr IVPB DAILY [facility] Rx#:[id number] Sodium Chloride 0.45% 1, 400 000 ml @ 100 mls/hr IV . [id number] [facility] with Sodium Bicarb (1 Meq/ml) 150 ml Rx#:[id number] Intake, IV Titration 658.918 585.237 Amount Cisatracurium 200 mg In 69.231 112.823 Sodium Chloride 0.9% 180 ml @ 1 MCG/KG/MIN 5.035 mls/hr IV .Q24H [facility] Rx#: [id number] Norepinephrine 8 mg In 420.511 153.902 Sodium Chloride 0.9% 250 ml @ 0.03 MCG/KG/MIN 4. 871 mls/hr IV .Q24H [facility] Rx#:[id number] Vasopressin 60 unit In 125.537 Sodium Chloride 0.9% 150 ml @ 0.03 UNITS/MIN 4.59 mls/hr IV .Q24H [facility] Rx#: [id number] fentaNYL (PF). 1,000 mcg 19.716 In Sodium Chloride 0.9% 80 ml @ 0.5 MCG/KG/HR 4. 196 mls/hr IV .[id number] [facility] Rx#:[id number] propofoL 1,000 mg In 169.176 173.259 Empty Bag 1 bag @ 15 MCG/ KG/MIN 7.552 mls/hr IV . [id number] [facility] Rx#:[id number] Tube Feeding 100 280 Hemodialysis 400 Other 30 Output: Urine 229 133 Hemodialysis 2400 Other: Voiding Method Indwelling Catheter Indwelling Catheter # Bowel Movements 1 ABP, PAP, CO, CI - Last Documented Arterial Blood Pressure 113/62 - Labs CBC & Chem 7: 09/21/23 04:40 09/21/23 04:40 Labs: Abnormal Lab Results - Last 24 Hours (Table) 09/19/23 09/20/23 09/20/23 Range/Units 07:54 04:33 04:33 WBC (3.8-10.6) k/uL RBC (4.30-5.90) m/uL Hgb (13.0-17.5) gm/dL Hct (39.0-53.0) % Neutrophils # (1.3-7.7) k/uL Lymphocytes # (1.0-4.8) k/uL ABG pH (7.35-7.45) ABG pCO2 (35-45) mmHg ABG Total CO2 (19-24) mmol/L ABG O2 Saturation (94-97) % Sodium (137-145) mmol/L Chloride (98-107) mmol/L Carbon Dioxide (22-30) mmol/L BUN (9-20) mg/dL Creatinine (0.66-1.25) mg/dL Glucose (74-99) mg/dL POC Glucose (mg/dL) (70-110) mg/dL Calcium 5.9 L* (8.4-10.2) mg/dL Phosphorus 9.8 H* (2.5-4.5) mg/dL AST (17-59) U/L ALT (4-49) U/L Alkaline Phosphatase (38-126) U/L Total Protein (6.3-8.2) g/dL Albumin (3.5-5.0) g/dL Fluid Appearance (Clear) Urine Legionella Ag Positive A (Negative) 09/20/23 09/20/23 09/20/23 Range/Units 11:03 11:11 18:28 WBC 28.6 H (3.8-10.6) k/uL RBC 3.37 L (4.30-5.90) m/uL Hgb 11.0 L (13.0-17.5) gm/dL Hct 32.4 L (39.0-53.0) % Neutrophils # 27.0 H (1.3-7.7) k/uL Lymphocytes # 0.4 L (1.0-4.8) k/uL ABG pH (7.35-7.45) ABG pCO2 (35-45) mmHg ABG Total CO2 (19-24) mmol/L ABG O2 Saturation (94-97) % Sodium (137-145) mmol/L Chloride (98-107) mmol/L Carbon Dioxide (22-30) mmol/L BUN (9-20) mg/dL Creatinine (0.66-1.25) mg/dL Glucose (74-99) mg/dL POC Glucose (mg/dL) (70-110) mg/dL Calcium 5.8 L* (8.4-10.2) mg/dL Phosphorus (2.5-4.5) mg/dL AST (17-59) U/L ALT (4-49) U/L Alkaline Phosphatase (38-126) U/L Total Protein (6.3-8.2) g/dL Albumin (3.5-5.0) g/dL Fluid Appearance Turbid A (Clear) Urine Legionella Ag (Negative) 09/20/23 09/20/23 09/20/23 Range/Units 18:28 18:29 18:45 WBC (3.8-10.6) k/uL RBC (4.30-5.90) m/uL Hgb (13.0-17.5) gm/dL Hct (39.0-53.0) % Neutrophils # (1.3-7.7) k/uL Lymphocytes # (1.0-4.8) k/uL ABG pH 7.19 L* (7.35-7.45) ABG pCO2 58 H (35-45) mmHg ABG Total CO2 (19-24) mmol/L ABG O2 Saturation 97.1 H (94-97) % Sodium 130 L (137-145) mmol/L Chloride 96 L (98-107) mmol/L Carbon Dioxide 20 L (22-30) mmol/L BUN 57 H (9-20) mg/dL Creatinine 4.66 H (0.66-1.25) mg/dL Glucose 155 H (74-99) mg/dL POC Glucose (mg/dL) 164 H (70-110) mg/dL Calcium 7.0 L (8.4-10.2) mg/dL Phosphorus 8.6 H (2.5-4.5) mg/dL AST (17-59) U/L ALT (4-49) U/L Alkaline Phosphatase (38-126) U/L Total Protein (6.3-8.2) g/dL Albumin (3.5-5.0) g/dL Fluid Appearance (Clear) Urine Legionella Ag (Negative) 09/20/23 09/20/23 09/21/23 Range/Units 19:55 20:04 00:44 WBC (3.8-10.6) k/uL RBC (4.30-5.90) m/uL Hgb (13.0-17.5) gm/dL Hct (39.0-53.0) % Neutrophils # (1.3-7.7) k/uL Lymphocytes # (1.0-4.8) k/uL ABG pH 7.24 L (7.35-7.45) ABG pCO2 55 H (35-45) mmHg ABG Total CO2 25 H (19-24) mmol/L ABG O2 Saturation 97.8 H (94-97) % Sodium (137-145) mmol/L Chloride (98-107) mmol/L Carbon Dioxide (22-30) mmol/L BUN (9-20) mg/dL Creatinine (0.66-1.25) mg/dL Glucose (74-99) mg/dL POC Glucose (mg/dL) 149 H 200 H (70-110) mg/dL Calcium (8.4-10.2) mg/dL Phosphorus (2.5-4.5) mg/dL AST (17-59) U/L ALT (4-49) U/L Alkaline Phosphatase (38-126) U/L Total Protein (6.3-8.2) g/dL Albumin (3.5-5.0) g/dL Fluid Appearance (Clear) Urine Legionella Ag (Negative) 09/21/23 09/21/23 09/21/23 Range/Units 04:28 04:40 04:40 WBC 25.8 H (3.8-10.6) k/uL RBC 3.29 L (4.30-5.90) m/uL Hgb 10.7 L (13.0-17.5) gm/dL Hct 31.7 L (39.0-53.0) % Neutrophils # 24.6 H (1.3-7.7) k/uL Lymphocytes # 0.2 L (1.0-4.8) k/uL ABG pH (7.35-7.45) ABG pCO2 (35-45) mmHg ABG Total CO2 (19-24) mmol/L ABG O2 Saturation (94-97) % Sodium 129 L (137-145) mmol/L Chloride 95 L (98-107) mmol/L Carbon Dioxide 16 L (22-30) mmol/L BUN 69 H (9-20) mg/dL Creatinine 6.04 H (0.66-1.25) mg/dL Glucose 157 H (74-99) mg/dL POC Glucose (mg/dL) 180 H (70-110) mg/dL Calcium 6.3 L* (8.4-10.2) mg/dL Phosphorus (2.5-4.5) mg/dL AST 239 H (17-59) U/L ALT 173 H (4-49) U/L Alkaline Phosphatase 147 H (38-126) U/L Total Protein 5.0 L (6.3-8.2) g/dL Albumin 2.6 L (3.5-5.0) g/dL Fluid Appearance (Clear) Urine Legionella Ag (Negative) 09/21/23 Range/Units 04:42 WBC (3.8-10.6) k/uL RBC (4.30-5.90) m/uL Hgb (13.0-17.5) gm/dL Hct (39.0-53.0) % Neutrophils # (1.3-7.7) k/uL Lymphocytes # (1.0-4.8) k/uL ABG pH 7.22 L (7.35-7.45) ABG pCO2 56 H (35-45) mmHg ABG Total CO2 25 H (19-24) mmol/L ABG O2 Saturation (94-97) % Sodium (137-145) mmol/L Chloride (98-107) mmol/L Carbon Dioxide (22-30) mmol/L BUN (9-20) mg/dL Creatinine (0.66-1.25) mg/dL Glucose (74-99) mg/dL POC Glucose (mg/dL) (70-110) mg/dL Calcium (8.4-10.2) mg/dL Phosphorus (2.5-4.5) mg/dL AST (17-59) U/L ALT (4-49) U/L Alkaline Phosphatase (38-126) U/L Total Protein (6.3-8.2) g/dL Albumin (3.5-5.0) g/dL Fluid Appearance (Clear) Urine Legionella Ag (Negative) Microbiology - Last 24 Hours (Table) 09/20/23 11:03 Gram Stain - Preliminary Bronchoalviolar Lavage - Right 09/18/23 13:35 Blood Culture - Preliminary Blood 09/18/23 13:50 Blood Culture - Preliminary Blood 09/19/23 22:45 Gram Stain - Preliminary Sputum 09/19/23 07:54 Urine Culture - Final Urine,Voided
--- NOTE | 2023-09-21 07:23 | XR ---
EXAMINATION TYPE: XR chest 1V portable DATE OF EXAM: 09/21/2023 5:23 AM CLINICAL INDICATION:Male, 58 years old with history of Tube placement; COMPARISON: Chest radiographs from 09/20/2023. TECHNIQUE: XR chest 1V portable Frontal view of the chest. FINDINGS: Lungs/Pleura: Multifocal airspace opacities. No evidence of pneumothorax or pleural effusion. Pulmonary vascularity: Unremarkable. Heart/mediastinum: Cardiomediastinal silhouette is unremarkable. Musculoskeletal: No acute osseous pathology. Other findings: None Lines/Tubes: Endotracheal tube with distal tip 6.0 cm above the teressa. Nasogastric tube with its distal tip and side-port projecting under the diaphragm. Left central venous catheter with distal tip at the cavoatrial junction. IMPRESSION: 1. Similar multifocal airspace opacities. 2. Stable support lines and tubes.
[2023-09-21 08:49] LABS: Glucose,Whole Blood 163 mg/dL (70-110)
[2023-09-21 08:59] LABS: Nucleated Cells, Body Fluid 2250 /UL
--- NOTE | 2023-09-21 10:29 | P.PN ---
Subjective patient is seen for follow-up for acute kidney injury. patient remains on the vent. FiO2 is decreased 70%. Status post hemodialysis yesterdayof of 2.4 L's. Currently off of all pressors. Patient is seen on hemodialysis today. Tolerating treatment well. urine output at 8-20 mL an hour. Objective - Vital Signs Vital signs: Vital Signs Temp 99.5 F 09/21/23 08:00 Pulse 105 H 09/21/23 09:00 Resp 30 H 09/21/23 09:00 BP 122/66 09/21/23 09:00 Pulse Ox 96 09/21/23 09:00 FiO2 80 09/21/23 08:00 Intake & Output 09/20/23 09/21/23 09/21/23 18:59 06:59 18:59 Intake Total 1789.918 943.237 226.909 Output Total 2629 133 35 Balance -839.082 810.237 191.909 Weight 83.915 kg 100.7 kg Intake: IV 601 78 62 A line 39 39 6 CVP 12 39 6 Calcium Gluconate in NaCl 100 2 gm In Saline 1 100ml. bag @ 100 mls/hr IVPB ONCE ONE Rx#:[id number] Cefepime 1 gm In Sodium 50 50 Chloride 0.9% 50 ml @ 12. 5 mls/hr IVPB DAILY [facility] Rx#:[id number] Sodium Chloride 0.45% 1, 400 000 ml @ 100 mls/hr IV . [id number] [facility] with Sodium Bicarb (1 Meq/ml) 150 ml Rx#:[id number] Intake, IV Titration 658.918 585.237 34.909 Amount Cisatracurium 200 mg In 69.231 112.823 34.909 Sodium Chloride 0.9% 180 ml @ 1 MCG/KG/MIN 5.035 mls/hr IV .Q24H [facility] Rx#: [id number] Norepinephrine 8 mg In 420.511 153.902 Sodium Chloride 0.9% 250 ml @ 0.03 MCG/KG/MIN 4. 871 mls/hr IV .Q24H [facility] Rx#:[id number] Vasopressin 60 unit In 125.537 Sodium Chloride 0.9% 150 ml @ 0.03 UNITS/MIN 4.59 mls/hr IV .Q24H [facility] Rx#: [id number] fentaNYL (PF). 1,000 mcg 19.716 In Sodium Chloride 0.9% 80 ml @ 0.5 MCG/KG/HR 4. 196 mls/hr IV .[id number] [facility] Rx#:[id number] propofoL 1,000 mg In 169.176 173.259 Empty Bag 1 bag @ 15 MCG/ KG/MIN 7.552 mls/hr IV . [id number] [facility] Rx#:[id number] Oral 60 Tube Feeding 100 280 40 Hemodialysis 400 Other 30 30 Output: Urine 229 133 35 Hemodialysis 2400 Other: Voiding Method Indwelling Catheter Indwelling Catheter Indwelling Catheter # Bowel Movements 1 ABP, PAP, CO, CI - Last Documented Arterial Blood Pressure 127/70 - Exam patient is sedated and on the vent. Examination of the heart S1 and S2 Examination the lungs bilateral breath sounds are heard Abdomen is soft Examination of lower extremities shows trace edema bilateral lower extremities - Labs CBC & Chem 7: 09/21/23 04:40 09/21/23 04:40 Labs: Abnormal Lab Results - Last 24 Hours (Table) 09/19/23 09/20/23 09/20/23 Range/Units 07:54 04:33 04:33 WBC (3.8-10.6) k/uL RBC (4.30-5.90) m/uL Hgb (13.0-17.5) gm/dL Hct (39.0-53.0) % Neutrophils # (1.3-7.7) k/uL Lymphocytes # (1.0-4.8) k/uL ABG pH (7.35-7.45) ABG pCO2 (35-45) mmHg ABG Total CO2 (19-24) mmol/L ABG O2 Saturation (94-97) % Sodium (137-145) mmol/L Chloride (98-107) mmol/L Carbon Dioxide (22-30) mmol/L BUN (9-20) mg/dL Creatinine (0.66-1.25) mg/dL Glucose (74-99) mg/dL POC Glucose (mg/dL) (70-110) mg/dL Calcium 5.9 L* (8.4-10.2) mg/dL Phosphorus 9.8 H* (2.5-4.5) mg/dL AST (17-59) U/L ALT (4-49) U/L Alkaline Phosphatase (38-126) U/L Total Protein (6.3-8.2) g/dL Albumin (3.5-5.0) g/dL Fluid Appearance (Clear) Urine Legionella Ag Positive A (Negative) 09/20/23 09/20/23 09/20/23 Range/Units 11:03 11:11 18:28 WBC 28.6 H (3.8-10.6) k/uL RBC 3.37 L (4.30-5.90) m/uL Hgb 11.0 L (13.0-17.5) gm/dL Hct 32.4 L (39.0-53.0) % Neutrophils # 27.0 H (1.3-7.7) k/uL Lymphocytes # 0.4 L (1.0-4.8) k/uL ABG pH (7.35-7.45) ABG pCO2 (35-45) mmHg ABG Total CO2 (19-24) mmol/L ABG O2 Saturation (94-97) % Sodium (137-145) mmol/L Chloride (98-107) mmol/L Carbon Dioxide (22-30) mmol/L BUN (9-20) mg/dL Creatinine (0.66-1.25) mg/dL Glucose (74-99) mg/dL POC Glucose (mg/dL) (70-110) mg/dL Calcium 5.8 L* (8.4-10.2) mg/dL Phosphorus (2.5-4.5) mg/dL AST (17-59) U/L ALT (4-49) U/L Alkaline Phosphatase (38-126) U/L Total Protein (6.3-8.2) g/dL Albumin (3.5-5.0) g/dL Fluid Appearance Turbid A (Clear) Urine Legionella Ag (Negative) 09/20/23 09/20/23 09/20/23 Range/Units 18:28 18:29 18:45 WBC (3.8-10.6) k/uL RBC (4.30-5.90) m/uL Hgb (13.0-17.5) gm/dL Hct (39.0-53.0) % Neutrophils # (1.3-7.7) k/uL Lymphocytes # (1.0-4.8) k/uL ABG pH 7.19 L* (7.35-7.45) ABG pCO2 58 H (35-45) mmHg ABG Total CO2 (19-24) mmol/L ABG O2 Saturation 97.1 H (94-97) % Sodium 130 L (137-145) mmol/L Chloride 96 L (98-107) mmol/L Carbon Dioxide 20 L (22-30) mmol/L BUN 57 H (9-20) mg/dL Creatinine 4.66 H (0.66-1.25) mg/dL Glucose 155 H (74-99) mg/dL POC Glucose (mg/dL) 164 H (70-110) mg/dL Calcium 7.0 L (8.4-10.2) mg/dL Phosphorus 8.6 H (2.5-4.5) mg/dL AST (17-59) U/L ALT (4-49) U/L Alkaline Phosphatase (38-126) U/L Total Protein (6.3-8.2) g/dL Albumin (3.5-5.0) g/dL Fluid Appearance (Clear) Urine Legionella Ag (Negative) 09/20/23 09/20/23 09/21/23 Range/Units 19:55 20:04 00:44 WBC (3.8-10.6) k/uL RBC (4.30-5.90) m/uL Hgb (13.0-17.5) gm/dL Hct (39.0-53.0) % Neutrophils # (1.3-7.7) k/uL Lymphocytes # (1.0-4.8) k/uL ABG pH 7.24 L (7.35-7.45) ABG pCO2 55 H (35-45) mmHg ABG Total CO2 25 H (19-24) mmol/L ABG O2 Saturation 97.8 H (94-97) % Sodium (137-145) mmol/L Chloride (98-107) mmol/L Carbon Dioxide (22-30) mmol/L BUN (9-20) mg/dL Creatinine (0.66-1.25) mg/dL Glucose (74-99) mg/dL POC Glucose (mg/dL) 149 H 200 H (70-110) mg/dL Calcium (8.4-10.2) mg/dL Phosphorus (2.5-4.5) mg/dL AST (17-59) U/L ALT (4-49) U/L Alkaline Phosphatase (38-126) U/L Total Protein (6.3-8.2) g/dL Albumin (3.5-5.0) g/dL Fluid Appearance (Clear) Urine Legionella Ag (Negative) 09/21/23 09/21/23 09/21/23 Range/Units 04:28 04:40 04:40 WBC 25.8 H (3.8-10.6) k/uL RBC 3.29 L (4.30-5.90) m/uL Hgb 10.7 L (13.0-17.5) gm/dL Hct 31.7 L (39.0-53.0) % Neutrophils # 24.6 H (1.3-7.7) k/uL Lymphocytes # 0.2 L (1.0-4.8) k/uL ABG pH (7.35-7.45) ABG pCO2 (35-45) mmHg ABG Total CO2 (19-24) mmol/L ABG O2 Saturation (94-97) % Sodium 129 L (137-145) mmol/L Chloride 95 L (98-107) mmol/L Carbon Dioxide 16 L (22-30) mmol/L BUN 69 H (9-20) mg/dL Creatinine 6.04 H (0.66-1.25) mg/dL Glucose 157 H (74-99) mg/dL POC Glucose (mg/dL) 180 H (70-110) mg/dL Calcium 6.3 L* (8.4-10.2) mg/dL Phosphorus (2.5-4.5) mg/dL AST 239 H (17-59) U/L ALT 173 H (4-49) U/L Alkaline Phosphatase 147 H (38-126) U/L Total Protein 5.0 L (6.3-8.2) g/dL Albumin 2.6 L (3.5-5.0) g/dL Fluid Appearance (Clear) Urine Legionella Ag (Negative) 09/21/23 09/21/23 Range/Units 04:42 08:48 WBC (3.8-10.6) k/uL RBC (4.30-5.90) m/uL Hgb (13.0-17.5) gm/dL Hct (39.0-53.0) % Neutrophils # (1.3-7.7) k/uL Lymphocytes # (1.0-4.8) k/uL ABG pH 7.22 L (7.35-7.45) ABG pCO2 56 H (35-45) mmHg ABG Total CO2 25 H (19-24) mmol/L ABG O2 Saturation (94-97) % Sodium (137-145) mmol/L Chloride (98-107) mmol/L Carbon Dioxide (22-30) mmol/L BUN (9-20) mg/dL Creatinine (0.66-1.25) mg/dL Glucose (74-99) mg/dL POC Glucose (mg/dL) 163 H (70-110) mg/dL Calcium (8.4-10.2) mg/dL Phosphorus (2.5-4.5) mg/dL AST (17-59) U/L ALT (4-49) U/L Alkaline Phosphatase (38-126) U/L Total Protein (6.3-8.2) g/dL Albumin (3.5-5.0) g/dL Fluid Appearance (Clear) Urine Legionella Ag (Negative) Microbiology - Last 24 Hours (Table) 09/20/23 11:03 Gram Stain - Preliminary Bronchoalviolar Lavage - Right 09/18/23 13:35 Blood Culture - Preliminary Blood 09/18/23 13:50 Blood Culture - Preliminary Blood 09/19/23 22:45 Gram Stain - Preliminary Sputum 09/19/23 07:54 Urine Culture - Final Urine,Voided Assessment and Plan Assessment: 1. Acute kidney injury, ATN. Secondary to hypotension and underlying in fection. Nonoliguric. Rule out underlying GN. Serologies are negative. Currently with indwelling Barnes catheter. Ultrasound shows no evidence of obstruction. UA shows 1+ protein and moderate blood WBCs 16. 2. Community-acquired bilateral pneumonia maintained on vancomycin, cefepime and azithromycinurine legionnaire antigen positive 3. Acute hypoxic respiratory failure, on the vent 4. Anion gap metabolic acidosis associated with acute kidney injury. 5. Hypokalemia 6. Hyponatremia,hypervolemic. Improved with dialysis 7. Volume overload Plan: hemodialysis today and repeat in am. Increase UF as tolerated. Antibiotics as per pulmonary
--- NOTE | 2023-09-21 10:45 | P.PN ---
Subjective Progress Note Date: 09/21/23 58-year-old male with history of hypertension, dyslipidemia, coronary artery disease presenting with shortness of breath. In the ED, temperature was 103.3, pulse 131, respiratory rate 30, blood pressure 118/86, saturating 88% on room air. WBC 21.2, hemoglobin 13, pH 7.41, pCO2 33, sodium 122, potassium 3.4, bicarb 18, anion gap 20, creatinine 5.94, lactic acid 3.9, magnesium 0.9, total bili 1.8, AST 110, ALT 53, ALP 105, troponin 0.102. Respiratory viral panel negative. Chest x-ray shows multifocal pneumonia right lower lobe greater than left. EKG shows sinus tachycardia with right bundle you block. Pelvic x-ray shows no acute process. Head CT shows no acute process. Pulmonology, nephrolo gy, cardiology consulted. Respiratory function progressively worsening despite being on broad-spectrum antibiotics. Patient is was subsequently intubated, on vasopressors. Troponin mildly elevated 0.102, 0.116, 0.132. Cardiology consulted, Echo EF 50-55% with no regional wall motion abnormalities, likely Type II RI. Right femoral HD catheter inserted 09/19. He underwent bronchoscopy with lavage on 09/19 with significant purulence noted in the RLL. 09/20 Patient was seen and examined. Intubated. Currently on Fentanyl and Propofol. Vasopressin and Levophed weaned off. Undergoing HD. CBC WBC 25.8, Hg 10.7, Hct 31.7. ABG pH 7.22, pCO2 56. CMP Na 129, Cl 95, bicarb 16, BUN 67, Cr 6.04, glu 157, Ca 6.4, AST 239, ALT 173, alk phos 147, alb 2.6. His Legionella Ag is postiive. CXR done this morning shows similar bilateral infiltrates. General: Intubated Derm: warm, dry Head: atraumatic, normocephalic, symmetric Eyes: no lid lag, normal sclera Mouth: no lip lesion, mucus membranes moist Cardiovascular: Normal S1 S2. No murmurs, rubs, gallops Lungs: Coarse BS BL, no accessory muscle use Ext: no gross muscle atrophy, trace LE edema, no contractures Neuro: Intubated Psych: Intubated Based on my assessment of this patient, this patient meets a high complexity level of care. Acute hypoxic respiratory failure due to below Septic shock due to Legionella pneumonia: Levofloxacin 500 mg IV Q48H started 09/19 and Cefepime 1g IV QD. Vancomycin and Azithromycin discontinued. Levophed titrated to maintain MAP > 65. Telemetry monitoring. Follow BAL and Blood cultures. Pulmonary on board. Consult ID. Troponin elevation, Type II RI: Plavix 75 mg PO QD. Metoprolol 25 mg PO BID. Acute kidney injury: Hold Lisinopril-HCTZ. HD catheter inserted 09/19. Plans for HD. Nephrology on board. Hyponatremia: Likely related to severe dehydration and Legionella. Hypocalcemia: Status post 1g Ca gluconate 09/19. Corrected Ca today 7.4. Tums 500 mg PO TID. Transaminitis: Abd US intermediate legion in the right hepatic lobe, MRI recommended. CBD within normal limits. Normocytic anemia: Stable. no signs of active bleeding. Monitor. Chronic conditions: Hypertension now hypotensive Dyslipidemia Smoker CODE STATUS: FULL CODE DVT Prophylaxis: Heparin SQ GI Prophylaxis: Protonix IV Designated medical POA if patient is not able to make medical decisions for themselves: I have reviewed the following pension consultant notes: Pulmonary, Cardiology, Nephrology. I have reviewed the results of the following tests: CBC. CMP. Legionella Ag. I have ordered the following tests: I have discussed the care of this patient with the following independent historian: I have independently interpreted the following test below: CXR I have discussed the management of this patient with the following physician: Objective - Vital Signs Vital signs: Vital Signs Temp 99.0 F 09/21/23 04:00 Pulse 108 H 09/21/23 06:00 Resp 30 H 09/21/23 06:00 BP 152/82 09/21/23 06:00 Pulse Ox 97 09/21/23 06:00 FiO2 80 09/21/23 07:42 Intake & Output 09/20/23 09/21/23 09/21/23 18:59 06:59 18:59 Intake Total 1789.918 943.237 Output Total 2629 133 Balance -839.082 810.237 Weight 83.915 kg 100.7 kg Intake: IV 601 78 A line 39 39 CVP 12 39 Calcium Gluconate in NaCl 100 2 gm In Saline 1 100ml. bag @ 100 mls/hr IVPB ONCE ONE Rx#:[id number] Cefepime 1 gm In Sodium 50 Chloride 0.9% 50 ml @ 12. 5 mls/hr IVPB DAILY [facility] Rx#:[id number] Sodium Chloride 0.45% 1, 400 000 ml @ 100 mls/hr IV . [id number] [facility] with Sodium Bicarb (1 Meq/ml) 150 ml Rx#:[id number] Intake, IV Titration 658.918 585.237 Amount Cisatracurium 200 mg In 69.231 112.823 Sodium Chloride 0.9% 180 ml @ 1 MCG/KG/MIN 5.035 mls/hr IV .Q24H [facility] Rx#: [id number] Norepinephrine 8 mg In 420.511 153.902 Sodium Chloride 0.9% 250 ml @ 0.03 MCG/KG/MIN 4. 871 mls/hr IV .Q24H [facility] Rx#:[id number] Vasopressin 60 unit In 125.537 Sodium Chloride 0.9% 150 ml @ 0.03 UNITS/MIN 4.59 mls/hr IV .Q24H [facility] Rx#: [id number] fentaNYL (PF). 1,000 mcg 19.716 In Sodium Chloride 0.9% 80 ml @ 0.5 MCG/KG/HR 4. 196 mls/hr IV .[id number] [facility] Rx#:[id number] propofoL 1,000 mg In 169.176 173.259 Empty Bag 1 bag @ 15 MCG/ KG/MIN 7.552 mls/hr IV . [id number] [facility] Rx#:[id number] Tube Feeding 100 280 Hemodialysis 400 Other 30 Output: Urine 229 133 Hemodialysis 2400 Other: Voiding Method Indwelling Catheter Indwelling Catheter # Bowel Movements 1 ABP, PAP, CO, CI - Last Documented Arterial Blood Pressure 113/62 - Labs CBC & Chem 7: 09/21/23 04:40 09/21/23 04:40 Labs: Abnormal Lab Results - Last 24 Hours (Table) 09/19/23 09/20/23 09/20/23 Range/Units 07:54 04:33 04:33 WBC (3.8-10.6) k/uL RBC (4.30-5.90) m/uL Hgb (13.0-17.5) gm/dL Hct (39.0-53.0) % Neutrophils # (1.3-7.7) k/uL Lymphocytes # (1.0-4.8) k/uL ABG pH (7.35-7.45) ABG pCO2 (35-45) mmHg ABG Total CO2 (19-24) mmol/L ABG O2 Saturation (94-97) % Sodium (137-145) mmol/L Chloride (98-107) mmol/L Carbon Dioxide (22-30) mmol/L BUN (9-20) mg/dL Creatinine (0.66-1.25) mg/dL Glucose (74-99) mg/dL POC Glucose (mg/dL) (70-110) mg/dL Calcium 5.9 L* (8.4-10.2) mg/dL Phosphorus 9.8 H* (2.5-4.5) mg/dL AST (17-59) U/L ALT (4-49) U/L Alkaline Phosphatase (38-126) U/L Total Protein (6.3-8.2) g/dL Albumin (3.5-5.0) g/dL Fluid Appearance (Clear) Urine Legionella Ag Positive A (Negative) 09/20/23 09/20/23 09/20/23 Range/Units 11:03 11:11 18:28 WBC 28.6 H (3.8-10.6) k/uL RBC 3.37 L (4.30-5.90) m/uL Hgb 11.0 L (13.0-17.5) gm/dL Hct 32.4 L (39.0-53.0) % Neutrophils # 27.0 H (1.3-7.7) k/uL Lymphocytes # 0.4 L (1.0-4.8) k/uL ABG pH (7.35-7.45) ABG pCO2 (35-45) mmHg ABG Total CO2 (19-24) mmol/L ABG O2 Saturation (94-97) % Sodium (137-145) mmol/L Chloride (98-107) mmol/L Carbon Dioxide (22-30) mmol/L BUN (9-20) mg/dL Creatinine (0.66-1.25) mg/dL Glucose (74-99) mg/dL POC Glucose (mg/dL) (70-110) mg/dL Calcium 5.8 L* (8.4-10.2) mg/dL Phosphorus (2.5-4.5) mg/dL AST (17-59) U/L ALT (4-49) U/L Alkaline Phosphatase (38-126) U/L Total Protein (6.3-8.2) g/dL Albumin (3.5-5.0) g/dL Fluid Appearance Turbid A (Clear) Urine Legionella Ag (Negative) 09/20/23 09/20/23 09/20/23 Range/Units 18:28 18:29 18:45 WBC (3.8-10.6) k/uL RBC (4.30-5.90) m/uL Hgb (13.0-17.5) gm/dL Hct (39.0-53.0) % Neutrophils # (1.3-7.7) k/uL Lymphocytes # (1.0-4.8) k/uL ABG pH 7.19 L* (7.35-7.45) ABG pCO2 58 H (35-45) mmHg ABG Total CO2 (19-24) mmol/L ABG O2 Saturation 97.1 H (94-97) % Sodium 130 L (137-145) mmol/L Chloride 96 L (98-107) mmol/L Carbon Dioxide 20 L (22-30) mmol/L BUN 57 H (9-20) mg/dL Creatinine 4.66 H (0.66-1.25) mg/dL Glucose 155 H (74-99) mg/dL POC Glucose (mg/dL) 164 H (70-110) mg/dL Calcium 7.0 L (8.4-10.2) mg/dL Phosphorus 8.6 H (2.5-4.5) mg/dL AST (17-59) U/L ALT (4-49) U/L Alkaline Phosphatase (38-126) U/L Total Protein (6.3-8.2) g/dL Albumin (3.5-5.0) g/dL Fluid Appearance (Clear) Urine Legionella Ag (Negative) 09/20/23 09/20/23 09/21/23 Range/Units 19:55 20:04 00:44 WBC (3.8-10.6) k/uL RBC (4.30-5.90) m/uL Hgb (13.0-17.5) gm/dL Hct (39.0-53.0) % Neutrophils # (1.3-7.7) k/uL Lymphocytes # (1.0-4.8) k/uL ABG pH 7.24 L (7.35-7.45) ABG pCO2 55 H (35-45) mmHg ABG Total CO2 25 H (19-24) mmol/L ABG O2 Saturation 97.8 H (94-97) % Sodium (137-145) mmol/L Chloride (98-107) mmol/L Carbon Dioxide (22-30) mmol/L BUN (9-20) mg/dL Creatinine (0.66-1.25) mg/dL Glucose (74-99) mg/dL POC Glucose (mg/dL) 149 H 200 H (70-110) mg/dL Calcium (8.4-10.2) mg/dL Phosphorus (2.5-4.5) mg/dL AST (17-59) U/L ALT (4-49) U/L Alkaline Phosphatase (38-126) U/L Total Protein (6.3-8.2) g/dL Albumin (3.5-5.0) g/dL Fluid Appearance (Clear) Urine Legionella Ag (Negative) 09/21/23 09/21/23 09/21/23 Range/Units 04:28 04:40 04:40 WBC 25.8 H (3.8-10.6) k/uL RBC 3.29 L (4.30-5.90) m/uL Hgb 10.7 L (13.0-17.5) gm/dL Hct 31.7 L (39.0-53.0) % Neutrophils # 24.6 H (1.3-7.7) k/uL Lymphocytes # 0.2 L (1.0-4.8) k/uL ABG pH (7.35-7.45) ABG pCO2 (35-45) mmHg ABG Total CO2 (19-24) mmol/L ABG O2 Saturation (94-97) % Sodium 129 L (137-145) mmol/L Chloride 95 L (98-107) mmol/L Carbon Dioxide 16 L (22-30) mmol/L BUN 69 H (9-20) mg/dL Creatinine 6.04 H (0.66-1.25) mg/dL Glucose 157 H (74-99) mg/dL POC Glucose (mg/dL) 180 H (70-110) mg/dL Calcium 6.3 L* (8.4-10.2) mg/dL Phosphorus (2.5-4.5) mg/dL AST 239 H (17-59) U/L ALT 173 H (4-49) U/L Alkaline Phosphatase 147 H (38-126) U/L Total Protein 5.0 L (6.3-8.2) g/dL Albumin 2.6 L (3.5-5.0) g/dL Fluid Appearance (Clear) Urine Legionella Ag (Negative) 09/21/23 Range/Units 04:42 WBC (3.8-10.6) k/uL RBC (4.30-5.90) m/uL Hgb (13.0-17.5) gm/dL Hct (39.0-53.0) % Neutrophils # (1.3-7.7) k/uL Lymphocytes # (1.0-4.8) k/uL ABG pH 7.22 L (7.35-7.45) ABG pCO2 56 H (35-45) mmHg ABG Total CO2 25 H (19-24) mmol/L ABG O2 Saturation (94-97) % Sodium (137-145) mmol/L Chloride (98-107) mmol/L Carbon Dioxide (22-30) mmol/L BUN (9-20) mg/dL Creatinine (0.66-1.25) mg/dL Glucose (74-99) mg/dL POC Glucose (mg/dL) (70-110) mg/dL Calcium (8.4-10.2) mg/dL Phosphorus (2.5-4.5) mg/dL AST (17-59) U/L ALT (4-49) U/L Alkaline Phosphatase (38-126) U/L Total Protein (6.3-8.2) g/dL Albumin (3.5-5.0) g/dL Fluid Appearance (Clear) Urine Legionella Ag (Negative) Microbiology - Last 24 Hours (Table) 09/20/23 11:03 Gram Stain - Preliminary Bronchoalviolar Lavage - Right 09/18/23 13:35 Blood Culture - Preliminary Blood 09/18/23 13:50 Blood Culture - Preliminary Blood 09/19/23 22:45 Gram Stain - Preliminary Sputum 09/19/23 07:54 Urine Culture - Final Urine,Voided
--- NOTE | 2023-09-21 11:33 | P.PN ---
Subjective Progress Note Date: 09/21/23 Patient is a 58-year-old white male with past medical history significant for hypertension, hyperlipidemia, nonocclusive coronary artery disease, and current everyday smoker. I am seeing this patient in the emergency room, after he presented yesterday afternoon with a chief complaint of generalized weakness, fall, shortness of breath and a productive cough. Patient states that starting Tuesday he developed a productive cough with yellow to green sputum. He progressively became more short of breath over the following days. Denies chest pain or hemoptysis. He noticed that he started developing fevers 2 nights ago. He has progressively become more weak. He has had reduced appetite and has not been drinking many oral fluids. He has been having nausea without vomiting. He had a fall yesterday. Denies hitting his head. He states that he more so lowered himself to the floor. States that he should have came in sooner. He is currently sitting in bed, on 3 L/min nasal cannula, he appears dyspneic. He is tachypneic with accessory muscle use. He was noted to be febrile on arrival with a Tmax of 103.3 F, which has been treated with Tylenol.. Chest x-ray demonstrates bilateral infiltrates, greater on the right mid and lower lobes. CBC on arrival demonstrates some leukocytosis with a WBC count of 21.2, otherwise unremarkable. BMP from yesterday has multiple electrolyte abnormalities including: Sodium 123, potassium 3.3, chloride 90, serum bicarb 14, BUN 53, creatinine 6.05, glucose 97. Lactic acid level was elevated at 3.9 and is down to 1.6. Magnesium level 0.9. LFTs mildly elevated. Total bili 1.8. Troponins elevated at 0.102, 0.116, and 0.132 respectively. Negative for influenza, RSV, COVID. Patient has been covered on broad-spectrum antibiotics including vancomycin, Zosyn, and azithromycin. Patient's current respiratory status is labile. On today's evaluation of 09/20/2023, the patient is being seen for a follow-up. Currently, the patient intubated on mechanical ventilator and sedated and paralyzed. This morning, the patient is on a propofol running at 30 mcg/kg/min and the patient is also on fentanyl at 0.3 mcg/kg/h. The patient is on Nimbex at 1 mcg/kg/min. While being on the mechanical ventilator, the patient assist- control mode at a rate of 30, tidal volume of 400, FiO2 is at 90% with a PEEP of 12. Urine output is in order of 20 to 30 cc an hour. Patient remains on norepinephrine running at 0.25 mcg/kg/min and the patient is also on physiologic dose of vasopressin. While on the mechanical ventilator, the peak airway pressure is around 20, CVP is at 16. The patient was resuscitated with IV fluids and the fluid balance is +4.6 L over the past 24 hours. The blood gas shows a pH of 7.2 with a pCO2 of 45 and a pO2 of 86. Chest x-ray is consistent with bilateral pneumonia. The white cell count today is at 26.8 with a hemoglobin of 11 and a platelet count of 225. Sodium is at 123, potassium level is at 4.2, serum bicarb is at 15, BUN is at 7 6. Creatinine 6.85. The patient total calcium level is at 5.9 and the corrected calcium level is at 7.1. Phosphorus level is at 9.8. LFTs show an bilirubin of 1.2, AST of 420, ALT of 200. The patient remains on a combination of antibiotics including IV cefepime, vancomycin and Zithromax. I performed a bronchoscopy endobronchial lavage of the right lower lobe. There was purulent respiratory secretions the right lung base that was suctioned out without any major difficulties. Blood cultures are negative thus far. The patient was also started on enteral feeding for nutritio nal support. Abdominal ultrasound showed normal common bile duct, normal kidneys without evidence of any hydronephrosis. Will on today's evaluation of 09/21/2023, the patient remains intubated on [facility] han[facility] ventilator. Diagnosed having the Legionella pneumonia and urine antigen was positive. Bronchoscopy was done and the bronchial lavage results are still pending for now. This morning, the patient is on propofol running at 45 mcg/kg/min and the patient is also on fentanyl at 0.5 mcg/kg/h and Nimbex at 2 mcg/kg. Minutes. IV fluids are currently at KVO. Pressors have been off since midnight. The patient is hemodynamically stable. Underwent hemodialysis yesterday with a total of 2 L of ultrafiltration. Another session is in progress this morning. Remains on mechanical ventilator on assist-control mode and the patient is at rate of 30, tidal volume 400, FiO2 of 80% with a PEEP of 15. Blood gas showed pH of 7.42 with a pCO2 of 56 and pO2 of 101. Chest x-ray shows bilateral pulmonary consolidation consistent with pneumonia. Peak airway pressure is around 28. Patient is currently on Nepro at rate of 20 cc an hour. The white cell count of 25.8, hemoglobin 10.7 and a platelet count of 235. Blood gases was noted. Sodium levels at 129, potassium is at 4.2 with a BUN of 69 and creatinine of 6. LFTs are still mildly elevated. Vancomycin was discontinued. Zithromax was discontinued and the patient was started on Levaquin 500 mg every 48 hours. IV cefepime was maintained. Objective - Vital Signs Vital signs: Vital Signs Temp 99.5 F 09/21/23 08:00 Pulse 105 H 09/21/23 08:46 Resp 30 H 09/21/23 08:00 BP 122/69 09/21/23 08:00 Pulse Ox 97 09/21/23 08:00 FiO2 80 09/21/23 08:00 Intake & Output 09/20/23 09/21/23 09/21/23 18:59 06:59 18:59 Intake Total 1789.918 943.237 166 Output Total 2629 133 20 Balance -839.082 810.237 146 Weight 83.915 kg 100.7 kg Intake: IV 601 78 56 A line 39 39 3 CVP 12 39 3 Calcium Gluconate in NaCl 100 2 gm In Saline 1 100ml. bag @ 100 mls/hr IVPB ONCE ONE Rx#:[id number] Cefepime 1 gm In Sodium 50 50 Chloride 0.9% 50 ml @ 12. 5 mls/hr IVPB DAILY DANNA Rx#:[id number] Sodium Chloride 0.45% 1, 400 000 ml @ 100 mls/hr IV . [id number] DANNA with Sodium Bicarb (1 Meq/ml) 150 ml Rx#:[id number] Intake, IV Titration 658.918 585.237 Amount Cisatracurium 200 mg In 69.231 112.823 Sodium Chloride 0.9% 180 ml @ 1 MCG/KG/MIN 5.035 mls/hr IV .Q24H DANNA Rx#: [id number] Norepinephrine 8 mg In 420.511 153.902 Sodium Chloride 0.9% 250 ml @ 0.03 MCG/KG/MIN 4. 871 mls/hr IV .Q24H DANNA Rx#:[id number] Vasopressin 60 unit In 125.537 Sodium Chloride 0.9% 150 ml @ 0.03 UNITS/MIN 4.59 mls/hr IV .Q24H DANNA Rx#: [id number] fentaNYL (PF). 1,000 mcg 19.716 In Sodium Chloride 0.9% 80 ml @ 0.5 MCG/KG/HR 4. 196 mls/hr IV .[id number] DANNA Rx#:[id number] propofoL 1,000 mg In 169.176 173.259 Empty Bag 1 bag @ 15 MCG/ KG/MIN 7.552 mls/hr IV . [id number] DANNA Rx#:[id number] Oral 60 Tube Feeding 100 280 20 Hemodialysis 400 Other 30 30 Output: Urine 229 133 20 Hemodialysis 2400 Other: Voiding Method Indwelling Catheter Indwelling Catheter # Bowel Movements 1 ABP, PAP, CO, CI - Last Documented Arterial Blood Pressure 113/63 - Exam GENERAL EXAM: Alert, 58-year-old white male, intubated, sedated and paralyzed. The patient has an orogastric and orotracheal tube are both in place. HEAD: Normocephalic and atraumatic EYES: Normal reaction of pupils, equal size. NOSE: Clear with pink turbinates. THROAT: No erythema or exudates. NECK: No masses, no JVD. CHEST: No chest wall deformity. LUNGS: Equal air entry with diffuse rhonchi and expiratory wheezing with bibasilar inspiratory crackles. CVS: S1 and S2 normal with no audible murmur, regular rhythm. No extra heart sounds ABDOMEN: No hepatosplenomegaly, active bowel sounds, no guarding or rigidity. SPINE: No scoliosis or deformity SKIN: No rashes CENTRAL NERVOUS SYSTEM: the patient is sedated and paralyzed at this point in time. Pupils are equal reactive to light. EXTREMITIES: There is no peripheral edema, clubbing, or cyanosis. Peripheral pulses are intact. - Labs CBC & Chem 7: 09/21/23 04:40 09/21/23 04:40 Labs: Abnormal Lab Results - Last 24 Hours (Table) 09/19/23 09/20/23 09/20/23 Range/Units 07:54 04:33 04:33 WBC (3.8-10.6) k/uL RBC (4.30-5.90) m/uL Hgb (13.0-17.5) gm/dL Hct (39.0-53.0) % Neutrophils # (1.3-7.7) k/uL Lymphocytes # (1.0-4.8) k/uL ABG pH (7.35-7.45) ABG pCO2 (35-45) mmHg ABG Total CO2 (19-24) mmol/L ABG O2 Saturation (94-97) % Sodium (137-145) mmol/L Chloride (98-107) mmol/L Carbon Dioxide (22-30) mmol/L BUN (9-20) mg/dL Creatinine (0.66-1.25) mg/dL Glucose (74-99) mg/dL POC Glucose (mg/dL) (70-110) mg/dL Calcium 5.9 L* (8.4-10.2) mg/dL Phosphorus 9.8 H* (2.5-4.5) mg/dL AST (17-59) U/L ALT (4-49) U/L Alkaline Phosphatase (38-126) U/L Total Protein (6.3-8.2) g/dL Albumin (3.5-5.0) g/dL Fluid Appearance (Clear) Urine Legionella Ag Positive A (Negative) 09/20/23 09/20/23 09/20/23 Range/Units 11:03 11:11 18:28 WBC 28.6 H (3.8-10.6) k/uL RBC 3.37 L (4.30-5.90) m/uL Hgb 11.0 L (13.0-17.5) gm/dL Hct 32.4 L (39.0-53.0) % Neutrophils # 27.0 H (1.3-7.7) k/uL Lymphocytes # 0.4 L (1.0-4.8) k/uL ABG pH (7.35-7.45) ABG pCO2 (35-45) mmHg ABG Total CO2 (19-24) mmol/L ABG O2 Saturation (94-97) % Sodium (137-145) mmol/L Chloride (98-107) mmol/L Carbon Dioxide (22-30) mmol/L BUN (9-20) mg/dL Creatinine (0.66-1.25) mg/dL Glucose (74-99) mg/dL POC Glucose (mg/dL) (70-110) mg/dL Calcium 5.8 L* (8.4-10.2) mg/dL Phosphorus (2.5-4.5) mg/dL AST (17-59) U/L ALT (4-49) U/L Alkaline Phosphatase (38-126) U/L Total Protein (6.3-8.2) g/dL Albumin (3.5-5.0) g/dL Fluid Appearance Turbid A (Clear) Urine Legionella Ag (Negative) 09/20/23 09/20/23 09/20/23 Range/Units 18:28 18:29 18:45 WBC (3.8-10.6) k/uL RBC (4.30-5.90) m/uL Hgb (13.0-17.5) gm/dL Hct (39.0-53.0) % Neutrophils # (1.3-7.7) k/uL Lymphocytes # (1.0-4.8) k/uL ABG pH 7.19 L* (7.35-7.45) ABG pCO2 58 H (35-45) mmHg ABG Total CO2 (19-24) mmol/L ABG O2 Saturation 97.1 H (94-97) % Sodium 130 L (137-145) mmol/L Chloride 96 L (98-107) mmol/L Carbon Dioxide 20 L (22-30) mmol/L BUN 57 H (9-20) mg/dL Creatinine 4.66 H (0.66-1.25) mg/dL Glucose 155 H (74-99) mg/dL POC Glucose (mg/dL) 164 H (70-110) mg/dL Calcium 7.0 L (8.4-10.2) mg/dL Phosphorus 8.6 H (2.5-4.5) mg/dL AST (17-59) U/L ALT (4-49) U/L Alkaline Phosphatase (38-126) U/L Total Protein (6.3-8.2) g/dL Albumin (3.5-5.0) g/dL Fluid Appearance (Clear) Urine Legionella Ag (Negative) 09/20/23 09/20/23 09/21/23 Range/Units 19:55 20:04 00:44 WBC (3.8-10.6) k/uL RBC (4.30-5.90) m/uL Hgb (13.0-17.5) gm/dL Hct (39.0-53.0) % Neutrophils # (1.3-7.7) k/uL Lymphocytes # (1.0-4.8) k/uL ABG pH 7.24 L (7.35-7.45) ABG pCO2 55 H (35-45) mmHg ABG Total CO2 25 H (19-24) mmol/L ABG O2 Saturation 97.8 H (94-97) % Sodium (137-145) mmol/L Chloride (98-107) mmol/L Carbon Dioxide (22-30) mmol/L BUN (9-20) mg/dL Creatinine (0.66-1.25) mg/dL Glucose (74-99) mg/dL POC Glucose (mg/dL) 149 H 200 H (70-110) mg/dL Calcium (8.4-10.2) mg/dL Phosphorus (2.5-4.5) mg/dL AST (17-59) U/L ALT (4-49) U/L Alkaline Phosphatase (38-126) U/L Total Protein (6.3-8.2) g/dL Albumin (3.5-5.0) g/dL Fluid Appearance (Clear) Urine Legionella Ag (Negative) 09/21/23 09/21/23 09/21/23 Range/Units 04:28 04:40 04:40 WBC 25.8 H (3.8-10.6) k/uL RBC 3.29 L (4.30-5.90) m/uL Hgb 10.7 L (13.0-17.5) gm/dL Hct 31.7 L (39.0-53.0) % Neutrophils # 24.6 H (1.3-7.7) k/uL Lymphocytes # 0.2 L (1.0-4.8) k/uL ABG pH (7.35-7.45) ABG pCO2 (35-45) mmHg ABG Total CO2 (19-24) mmol/L ABG O2 Saturation (94-97) % Sodium 129 L (137-145) mmol/L Chloride 95 L (98-107) mmol/L Carbon Dioxide 16 L (22-30) mmol/L BUN 69 H (9-20) mg/dL Creatinine 6.04 H (0.66-1.25) mg/dL Glucose 157 H (74-99) mg/dL POC Glucose (mg/dL) 180 H (70-110) mg/dL Calcium 6.3 L* (8.4-10.2) mg/dL Phosphorus (2.5-4.5) mg/dL AST 239 H (17-59) U/L ALT 173 H (4-49) U/L Alkaline Phosphatase 147 H (38-126) U/L Total Protein 5.0 L (6.3-8.2) g/dL Albumin 2.6 L (3.5-5.0) g/dL Fluid Appearance (Clear) Urine Legionella Ag (Negative) 09/21/23 Range/Units 04:42 WBC (3.8-10.6) k/uL RBC (4.30-5.90) m/uL Hgb (13.0-17.5) gm/dL Hct (39.0-53.0) % Neutrophils # (1.3-7.7) k/uL Lymphocytes # (1.0-4.8) k/uL ABG pH 7.22 L (7.35-7.45) ABG pCO2 56 H (35-45) mmHg ABG Total CO2 25 H (19-24) mmol/L ABG O2 Saturation (94-97) % Sodium (137-145) mmol/L Chloride (98-107) mmol/L Carbon Dioxide (22-30) mmol/L BUN (9-20) mg/dL Creatinine (0.66-1.25) mg/dL Glucose (74-99) mg/dL POC Glucose (mg/dL) (70-110) mg/dL Calcium (8.4-10.2) mg/dL Phosphorus (2.5-4.5) mg/dL AST (17-59) U/L ALT (4-49) U/L Alkaline Phosphatase (38-126) U/L Total Protein (6.3-8.2) g/dL Albumin (3.5-5.0) g/dL Fluid Appearance (Clear) Urine Legionella Ag (Negative) Microbiology - Last 24 Hours (Table) 09/20/23 11:03 Gram Stain - Preliminary Bronchoalviolar Lavage - Right 09/18/23 13:35 Blood Culture - Preliminary Blood 09/18/23 13:50 Blood Culture - Preliminary Blood 09/19/23 22:45 Gram Stain - Preliminary Sputum 09/19/23 07:54 Urine Culture - Final Urine,Voided Assessment and Plan Assessment: Acute hypoxic respiratory failure secondary to Legionella pneumonia and the patient has bilateral multilobar pneumonia, the patient is currently intubated on mechanical ventilator. Intubation was performed on 09/19/2023. Bronchoscopy endobronchial lavage of the right lower lobe was done. The Legionella urine antigen was positive and the patient remains on Levaquin and cefepime for now. He remains intubated on mechanical ventilator. Remains sedated and paralyzed. Shock, likely septic in nature, improved and the patient is currently off pressors. Acute COPD exacerbation secondary to above Severe dehydration at time of admission and the patient has been medically resuscitated IV fluids. Multiple electrolyte abnormalities including hyponatremia, hypokalemia, severe hypomagnesemia, which are being replaced Acute kidney injury, likely secondary to severe dehydration, sepsis, and acute tubular necrosis. No evidence of any hydronephrosis. The patient has diminished urine output and the creatinine remains elevated. 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 Continue ventilator support and increase the PEEP up to 15 and gradually wean down FiO2 as tolerated, weaning down to 70% Bronchoscopy was performed endobronchial lavage of the right lower lobe, results are still pending. Legionella urine antigen was positive. Underwent hemodialysis yesterday another session is in progress Currently off pressors including norepinephrine and vasopressin Continue bronchodilators with DuoNeb updrafts [id number] Continue with same antibiotic coverage includes IV cefepime and Levaquin with appropriate dose adjustments Continue Solu-Medrol Continue enteral feeding for nutritional support IV fluids to KVO Will continue to follow make further recommendations based on the progress. Condition is critical. Family has been updated. This evaluation was done more than 30 minutes. Case is being discussed and coordinated with the various consultants involved in the care of this patient. This evaluation was done more than 30 minutes. Time with Patient: Greater than 30
[2023-09-21 11:37] LABS: Glucose,Whole Blood 146 mg/dL (70-110)
[2023-09-21 16:56] LABS: Glucose,Whole Blood 224 mg/dL (70-110)
[2023-09-21] MEDS ORDERED: AZITHROMYCIN 500 MG in SODIUM CHLORIDE 0.9% 250 ML IVPB SCH (17:00)
[2023-09-21] MEDS ORDERED: DEXTROSE 50% SYRINGE 50 ML IVP PRN ×2 (17:27)
[2023-09-21] MEDS: LEVOFLOXACIN 500MG-D5W PMX 500 MG in DEXTROSE/WATER 1 100ML.BAG IVPB SCH (17:28)
[2023-09-21] MEDS: INSULIN ASPART (NovoLOG) 100 UNIT/ML VIAL SQ SCH (17:34)
--- NOTE | 2023-09-21 20:33 | XR ---
EXAMINATION TYPE: XR chest 1V portable DATE OF EXAM: 09/21/2023 8:20 PM CLINICAL INDICATION:Male, 58 years old with history of verify tube placement; [facility] COMPARISON: Chest radiographs from 09/21/2023 TECHNIQUE: XR chest 1V portable Frontal view of the chest. FINDINGS: Lungs/Pleura: Multifocal airspace opacities. No evidence of pneumothorax or pleural effusion. Pulmonary vascularity: Unremarkable. Heart/mediastinum: Cardiomediastinal silhouette is unremarkable. Musculoskeletal: No acute osseous pathology. Other findings: None Lines/Tubes: Endotracheal tube with distal tip 6.0 cm above the teressa. Nasogastric tube with its distal tip and side-port projecting under the diaphragm. Left central venous catheter with distal tip at the cavoatrial junction. IMPRESSION: 1. Similar multifocal airspace opacities. 2. Stable support lines and tubes.
--- NOTE | 2023-09-21 21:15 | P.CONS ---
History of Present Illness - Reason for Consult Consult date: 09/21/23 Legionella pneumonia Requesting physician: Daisy Buchanan - Chief Complaint Increasing shortness of breath x few days - History of Present Illness Patient is a 58-year-old male with a past medical history significant for hypertension [place] current everyday smoker presenting to the hospital 3 days ago for evaluation of increasing shortness of breath patient symptom has been going on for about 4 days before presentation the hospital and include increased weakness lightheadedness shortness of breath and did have a productive sputum denies having significant fever or chills patient on presentation to the hospital was febrile with a temperature 103.3 F patient was tachycardic mildly hypertensive and hypoxic patient got intubated and has been admitted to the ICU on arrival to the ER patient did have white count 21.2 creatinine was 5.94 liver enzymes mildly elevated urine mildly positive influenza RSV COVID testing was negative however urine for Legionella antigen positive, the patient did have a chest x-ray on admission did shows evidence of right middle lower lobe infiltrate suggestive of pneumonia, patient has been on multiple antibiotic initially including cefepime and vancomycin, patient has been started on Levaquin infectious disease was consulted for further management of antibiotic therapy most information has been obtained from review of the chart the patient is currently intubated on the vent and talking nursing staff Review of Systems Positive points has been mentioned in HPI complete review could not be obtained because patient intubated on the vent Past Medical History Past Medical History: Hypertension, Myocardial Infarction ([place]) Additional Past Medical History / Comment(s): Duodenal ulcer, Barrets esophagus, 03/2023 - went to medical laboratory technologist, no stents, medical mangement Last Myocardial Infarction Date:: 03/2023 History of Any Multi-Drug Resistant Organisms: None Reported Past Surgical History: Appendectomy, Cholecystectomy, Heart Catheterization, Hernia Repair Additional Past Surgical History / Comment(s): knee surgery, shoulder surgery Past Anesthesia/Blood Transfusion Reactions: No Reported Reaction Past Psychological History: No Psychological Hx Reported Smoking Status: Current every day smoker Past Alcohol Use History: Occasional Past Drug Use History: None Reported - Past Family History Mother Additional Family Medical History / Comment(s): alcoholism Father Family Medical History: Dementia Medications and Allergies Home Medications Medication Instructions Recorded Confirmed Type Atorvastatin [Lipitor] 80 mg PO DAILY #30 tab 03/27/23 09/18/23 Rx Clopidogrel [Plavix] 75 mg PO DAILY #30 tab 03/27/23 09/18/23 Rx Metoprolol Tartrate [Lopressor] 25 mg PO BID #60 tab 03/27/23 09/18/23 Rx Nitroglycerin Sl Tabs [Nitrostat] 0.4 mg SUBLINGUAL Q5M PRN #20 tab 03/27/23 09/18/23 Rx Omeprazole [PriLOSEC] 40 mg PO DAILY 09/18/23 09/18/23 History Calcium Acetate [PhosLo] 667 mg PO TID-W/MEALS tab 10/07/23 Rx Calcium Carbonate [Tums] 500 mg PO TID tab 10/07/23 Rx Furosemide [Lasix] 40 mg PO BID 30 Days #60 tablet 10/07/23 Rx Ipratropium-Albuterol Nebulize 3 ml INHALATION RT-QID PRN each 10/07/23 Rx [Duoneb 0.5 mg-3 mg/3 ml Soln] Triamcinolone 0.1% Ointment 1 applic TOPICAL TID 7 Days each 10/07/23 Rx [Kenalog 0.1% Ointment] hydrALAZINE HCL [Apresoline] 50 mg PO TID tab 10/07/23 Rx predniSONE [Deltasone] 10 mg PO DAILY tab 10/07/23 Rx Allergies Allergy/AdvReac Type Severity Reaction Status Date / Time aspirin AdvReac Abdominal Verified 09/18/23 14:54 Pain & Chest Pain ibuprofen [From Motrin] AdvReac Abdominal Verified 09/18/23 14:54 Pain & Chest Pain Physical Exam Vitals: Vital Signs Temp Pulse Pulse Resp BP BP Pulse Ox 09/21/23 11:15 09/21/23 11:00 99 30 H 131/71 96 09/21/23 10:00 104 H 30 H 128/74 95 09/21/23 09:00 105 H 30 H 122/66 96 09/21/23 08:46 105 H 09/21/23 08:32 105 H 09/21/23 08:20 105 H 09/21/23 08:00 99.5 F 106 H 30 H 122/69 97 09/21/23 07:42 09/21/23 07:00 106 H 30 H 125/68 97 09/21/23 06:00 108 H 30 H 152/82 97 09/21/23 05:42 09/21/23 05:00 114 H 30 H 141/76 100 09/21/23 04:05 109 H 09/21/23 04:00 99.0 F 112 H 30 H 139/74 100 09/21/23 03:49 113 H 09/21/23 03:48 09/21/23 03:00 109 H 30 H 137/75 100 09/21/23 02:00 106 H 30 H 126/75 100 09/21/23 01:00 106 H 30 H 142/73 100 09/21/23 00:45 106 H 09/21/23 00:34 105 H 09/21/23 00:28 09/21/23 00:00 98.1 F 104 H 30 H 100 09/20/23 23:13 106 H 30 H 135/84 99 09/20/23 23:00 105 H 30 H 131/78 99 09/20/23 22:52 96 09/20/23 22:00 104 H 30 H 122/71 98 09/20/23 21:00 99 30 H 122/74 97 09/20/23 20:06 96 09/20/23 20:05 96 09/20/23 20:00 97.7 F 96 30 H 121/69 98 09/20/23 19:56 97 09/20/23 19:38 09/20/23 19:00 97 30 H 98 09/20/23 18:45 96 30 H 98 09/20/23 18:30 97 30 H 98 09/20/23 18:21 98.0 F 96 29 H 118/59 09/20/23 18:15 98 30 H 97 09/20/23 18:00 98 30 H 96 09/20/23 17:45 101 H 30 H 95 09/20/23 17:30 101 H 30 H 95 09/20/23 17:15 102 H 30 H 93 L 09/20/23 17:00 98 30 H 93 L 09/20/23 16:56 98 09/20/23 16:45 103 H 30 H 93 L 09/20/23 16:40 09/20/23 16:30 96 30 H 93 L 09/20/23 16:15 96 17 93 L 09/20/23 16:00 98 F 96 15 94 L 09/20/23 15:45 93 30 H 95 09/20/23 15:30 97 30 H 94 L 09/20/23 15:15 97 30 H 94 L 09/20/23 15:00 98 30 H 95 09/20/23 14:30 97 30 H 96 09/20/23 14:00 97 17 134/67 94 L 09/20/23 13:30 98 20 134/67 95 09/20/23 13:00 100 30 H 106/65 94 L 09/20/23 12:41 98 09/20/23 12:33 09/20/23 12:32 106 H 09/20/23 12:30 93 30 H 106/65 94 L 09/20/23 12:00 97.6 F 92 30 H 110/63 95 09/20/23 11:30 94 30 H 110/63 95 FiO2 09/21/23 11:15 60 09/21/23 11:00 09/21/23 10:00 09/21/23 09:00 09/21/23 08:46 09/21/23 08:32 09/21/23 08:20 09/21/23 08:00 80 09/21/23 07:42 80 09/21/23 07:00 09/21/23 06:00 90 09/21/23 05:42 90 09/21/23 05:00 100 09/21/23 04:05 09/21/23 04:00 100 09/21/23 03:49 09/21/23 03:48 100 09/21/23 03:00 100 09/21/23 02:00 100 09/21/23 01:00 100 09/21/23 00:45 09/21/23 00:34 09/21/23 00:28 100 09/21/23 00:00 100 09/20/23 23:13 100 09/20/23 23:00 100 09/20/23 22:52 09/20/23 22:00 100 09/20/23 21:00 100 09/20/23 20:06 09/20/23 20:05 09/20/23 20:00 100 09/20/23 19:56 09/20/23 19:38 100 09/20/23 19:00 09/20/23 18:45 09/20/23 18:30 09/20/23 18:21 09/20/23 18:15 09/20/23 18:00 09/20/23 17:45 09/20/23 17:30 09/20/23 17:15 09/20/23 17:00 09/20/23 16:56 09/20/23 16:45 09/20/23 16:40 09/20/23 16:30 09/20/23 16:15 09/20/23 16:00 09/20/23 15:45 09/20/23 15:30 09/20/23 15:15 09/20/23 15:00 09/20/23 14:30 09/20/23 14:00 09/20/23 13:30 09/20/23 13:00 09/20/23 12:41 09/20/23 12:33 09/20/23 12:32 09/20/23 12:30 09/20/23 12:00 09/20/23 11:30 Intake and Output 09/20/23 09/21/23 09/21/23 22:59 06:59 14:59 Intake Total 1176.786 522.525 362.337 Output Total 2503 93 45 Balance -1326.214 429.525 317.337 Intake: IV 45 54 74 A line 24 27 12 CVP 21 27 12 Cefepime 1 gm In Sodium 50 Chloride 0.9% 50 ml @ 12. 5 mls/hr IVPB DAILY [facility] Rx#:[id number] Intake, IV Titration 591.786 288.525 158.337 Amount Cisatracurium 200 mg In 105.147 76.907 34.909 Sodium Chloride 0.9% 180 ml @ 1 MCG/KG/MIN 5.035 mls/hr IV .Q24H [facility] Rx#: [id number] Norepinephrine 8 mg In 224.212 56.343 Sodium Chloride 0.9% 250 ml @ 0.03 MCG/KG/MIN 4. 871 mls/hr IV .Q24H [facility] Rx#:[id number] Vasopressin 60 unit In 95.013 30.524 Sodium Chloride 0.9% 150 ml @ 0.03 UNITS/MIN 4.59 mls/hr IV .Q24H [facility] Rx#: [id number] fentaNYL (PF). 1,000 mcg 19.716 28.463 In Sodium Chloride 0.9% 80 ml @ 0.5 MCG/KG/HR 4. 196 mls/hr IV .[id number] [facility] Rx#:[id number] propofoL 1,000 mg In 167.414 105.035 94.965 Empty Bag 1 bag @ 15 MCG/ KG/MIN 7.552 mls/hr IV . [id number] [facility] Rx#:[id number] Oral 60 Tube Feeding 140 180 40 Hemodialysis 400 Other 30 Output: Urine 103 93 45 Hemodialysis 2400 Other: Voiding Method Indwelling Catheter Indwelling Catheter Indwelling Catheter Weight 100.7 kg ABP, PAP, CO, CI - Last 8 Hours Arterial Blood Pressure 113/69 Arterial Blood Pressure 118/71 Arterial Blood Pressure 127/70 Arterial Blood Pressure 113/63 Arterial Blood Pressure 110/62 Arterial Blood Pressure 113/62 Arterial Blood Pressure 133/72 Arterial Blood Pressure 124/69 GENERAL DESCRIPTION: Middle-age male intubated on the vent HEENT: Shows Pallor , no scleral icterus. Oral mucous membrane is dry. NECK: Trachea central, no thyromegaly. LUNGS: Unlabored breathing. Decreased breath sounds at the base HEART: S1, S2, regular rate and rhythm. No loud murmur ABDOMEN: Soft, no tenderness , guarding or rigidity, no organomegaly EXTREMITIES: No edema of feet. SKIN: No rash, no masses palpable. NEUROLOGICAL: The patient is sedated on the vent Results CBC & Chem 7: 10/07/23 06:56 10/07/23 06:56 Labs: Abnormal Lab Results - Last 24 Hours (Table) 09/19/23 09/20/23 09/20/23 Range/Units 07:54 04:33 11:03 WBC (3.8-10.6) k/uL RBC (4.30-5.90) m/uL Hgb (13.0-17.5) gm/dL Hct (39.0-53.0) % Neutrophils # (1.3-7.7) k/uL Lymphocytes # (1.0-4.8) k/uL ABG pH (7.35-7.45) ABG pCO2 (35-45) mmHg ABG Total CO2 (19-24) mmol/L ABG O2 Saturation (94-97) % Sodium (137-145) mmol/L Chloride (98-107) mmol/L Carbon Dioxide (22-30) mmol/L BUN (9-20) mg/dL Creatinine (0.66-1.25) mg/dL Glucose (74-99) mg/dL POC Glucose (mg/dL) (70-110) mg/dL Calcium 5.9 L* (8.4-10.2) mg/dL Phosphorus (2.5-4.5) mg/dL AST (17-59) U/L ALT (4-49) U/L Alkaline Phosphatase (38-126) U/L Total Protein (6.3-8.2) g/dL Albumin (3.5-5.0) g/dL Fluid Appearance Turbid A (Clear) Urine Legionella Ag Positive A (Negative) 09/20/23 09/20/23 09/20/23 Range/Units 11:11 18:28 18:28 WBC 28.6 H (3.8-10.6) k/uL RBC 3.37 L (4.30-5.90) m/uL Hgb 11.0 L (13.0-17.5) gm/dL Hct 32.4 L (39.0-53.0) % Neutrophils # 27.0 H (1.3-7.7) k/uL Lymphocytes # 0.4 L (1.0-4.8) k/uL ABG pH (7.35-7.45) ABG pCO2 (35-45) mmHg ABG Total CO2 (19-24) mmol/L ABG O2 Saturation (94-97) % Sodium 130 L (137-145) mmol/L Chloride 96 L (98-107) mmol/L Carbon Dioxide 20 L (22-30) mmol/L BUN 57 H (9-20) mg/dL Creatinine 4.66 H (0.66-1.25) mg/dL Glucose 155 H (74-99) mg/dL POC Glucose (mg/dL) (70-110) mg/dL Calcium 5.8 L* 7.0 L (8.4-10.2) mg/dL Phosphorus 8.6 H (2.5-4.5) mg/dL AST (17-59) U/L ALT (4-49) U/L Alkaline Phosphatase (38-126) U/L Total Protein (6.3-8.2) g/dL Albumin (3.5-5.0) g/dL Fluid Appearance (Clear) Urine Legionella Ag (Negative) 09/20/23 09/20/23 09/20/23 Range/Units 18:29 18:45 19:55 WBC (3.8-10.6) k/uL RBC (4.30-5.90) m/uL Hgb (13.0-17.5) gm/dL Hct (39.0-53.0) % Neutrophils # (1.3-7.7) k/uL Lymphocytes # (1.0-4.8) k/uL ABG pH 7.19 L* 7.24 L (7.35-7.45) ABG pCO2 58 H 55 H (35-45) mmHg ABG Total CO2 25 H (19-24) mmol/L ABG O2 Saturation 97.1 H 97.8 H (94-97) % Sodium (137-145) mmol/L Chloride (98-107) mmol/L Carbon Dioxide (22-30) mmol/L BUN (9-20) mg/dL Creatinine (0.66-1.25) mg/dL Glucose (74-99) mg/dL POC Glucose (mg/dL) 164 H (70-110) mg/dL Calcium (8.4-10.2) mg/dL Phosphorus (2.5-4.5) mg/dL AST (17-59) U/L ALT (4-49) U/L Alkaline Phosphatase (38-126) U/L Total Protein (6.3-8.2) g/dL Albumin (3.5-5.0) g/dL Fluid Appearance (Clear) Urine Legionella Ag (Negative) 09/20/23 09/21/23 09/21/23 Range/Units 20:04 00:44 04:28 WBC (3.8-10.6) k/uL RBC (4.30-5.90) m/uL Hgb (13.0-17.5) gm/dL Hct (39.0-53.0) % Neutrophils # (1.3-7.7) k/uL Lymphocytes # (1.0-4.8) k/uL ABG pH (7.35-7.45) ABG pCO2 (35-45) mmHg ABG Total CO2 (19-24) mmol/L ABG O2 Saturation (94-97) % Sodium (137-145) mmol/L Chloride (98-107) mmol/L Carbon Dioxide (22-30) mmol/L BUN (9-20) mg/dL Creatinine (0.66-1.25) mg/dL Glucose (74-99) mg/dL POC Glucose (mg/dL) 149 H 200 H 180 H (70-110) mg/dL Calcium (8.4-10.2) mg/dL Phosphorus (2.5-4.5) mg/dL AST (17-59) U/L ALT (4-49) U/L Alkaline Phosphatase (38-126) U/L Total Protein (6.3-8.2) g/dL Albumin (3.5-5.0) g/dL Fluid Appearance (Clear) Urine Legionella Ag (Negative) 09/21/23 09/21/23 09/21/23 Range/Units 04:40 04:40 04:42 WBC 25.8 H (3.8-10.6) k/uL RBC 3.29 L (4.30-5.90) m/uL Hgb 10.7 L (13.0-17.5) gm/dL Hct 31.7 L (39.0-53.0) % Neutrophils # 24.6 H (1.3-7.7) k/uL Lymphocytes # 0.2 L (1.0-4.8) k/uL ABG pH 7.22 L (7.35-7.45) ABG pCO2 56 H (35-45) mmHg ABG Total CO2 25 H (19-24) mmol/L ABG O2 Saturation (94-97) % Sodium 129 L (137-145) mmol/L Chloride 95 L (98-107) mmol/L Carbon Dioxide 16 L (22-30) mmol/L BUN 69 H (9-20) mg/dL Creatinine 6.04 H (0.66-1.25) mg/dL Glucose 157 H (74-99) mg/dL POC Glucose (mg/dL) (70-110) mg/dL Calcium 6.3 L* (8.4-10.2) mg/dL Phosphorus (2.5-4.5) mg/dL AST 239 H (17-59) U/L ALT 173 H (4-49) U/L Alkaline Phosphatase 147 H (38-126) U/L Total Protein 5.0 L (6.3-8.2) g/dL Albumin 2.6 L (3.5-5.0) g/dL Fluid Appearance (Clear) Urine Legionella Ag (Negative) 09/21/23 Range/Units 08:48 WBC (3.8-10.6) k/uL RBC (4.30-5.90) m/uL Hgb (13.0-17.5) gm/dL Hct (39.0-53.0) % Neutrophils # (1.3-7.7) k/uL Lymphocytes # (1.0-4.8) k/uL ABG pH (7.35-7.45) ABG pCO2 (35-45) mmHg ABG Total CO2 (19-24) mmol/L ABG O2 Saturation (94-97) % Sodium (137-145) mmol/L Chloride (98-107) mmol/L Carbon Dioxide (22-30) mmol/L BUN (9-20) mg/dL Creatinine (0.66-1.25) mg/dL Glucose (74-99) mg/dL POC Glucose (mg/dL) 163 H (70-110) mg/dL Calcium (8.4-10.2) mg/dL Phosphorus (2.5-4.5) mg/dL AST (17-59) U/L ALT (4-49) U/L Alkaline Phosphatase (38-126) U/L Total Protein (6.3-8.2) g/dL Albumin (3.5-5.0) g/dL Fluid Appearance (Clear) Urine Legionella Ag (Negative) Microbiology - Last 24 Hours (Table) 09/20/23 11:03 Gram Stain - Preliminary Bronchoalviolar Lavage - Right 09/18/23 13:35 Blood Culture - Preliminary Blood 09/18/23 13:50 Blood Culture - Preliminary Blood 09/19/23 22:45 Gram Stain - Preliminary Sputum 09/19/23 07:54 Urine Culture - Final Urine,Voided Assessment and Plan (1) Legionella pneumonia Current Visit: Yes Status: Acute Code(s): A48.1 - LEGIONNAIRES' DISEASE SN OMED Code(s): 781119908 (2) Pneumonia Current Visit: Yes Status: Acute Code(s): J18.9 - PNEUMONIA, UNSPECIFIED ORGANISM SNOMED Code(s): 840025822 (3) Sepsis Current Visit: Yes Status: Acute Code(s): A41.9 - SEPSIS, UNSPECIFIED ORGANISM SNOMED Code(s): 37341600 Plan: 1patient presented hospital with sepsis in this patient who did have fever tachycardia elevated white count Zosyn pneumonia in this patient had urine tested positive for Legionella antigen more likely etiology agent of the sepsis and pneumonia 2-patient with renal failure high risk of nephrotoxicity 3-patient advised Levaquin along with supportive treatment We will follow on clinical condition and cultures to further adjust medication if needed Thank you for this consultation we will follow the patient along with you Dictation was produced using [employer] dictation software. please excuse any grammatical, word or spelling errors.
[2023-09-21 23:32] LABS: Glucose,Whole Blood 201 mg/dL (70-110)
[2023-09-22 04:59] LABS: HCT 26.6 % (39.0-53.0); HGB 9.4 gm/dL (13.0-17.5); MCH 33.9 pg (25.0-35.0); MCHC 35.4 g/dL (31.0-37.0); MCV 95.7 fL (80.0-100.0); Mean Platelet Volume 9.6; Platelet Count 238 k/uL (150-450); Poikilocytosis Slight; RBC 2.78 m/uL (4.30-5.90); RDW 15.6 % (11.5-15.5); WBC 20.9 k/uL (3.8-10.6)
[2023-09-22 05:11] LABS: ALT 123 U/L (4-49); AST 117 U/L (17-59); African American GFR (CKD) 12 (>60 ml/min/1.73 sqM); Albumin 2.5 g/dL (3.5-5.0); Alkaline Phosphatase 152 U/L (38-126); Anion Gap 12 mmol/L; Blood Urea Nitrogen 69 mg/dL (9-20); Calcium 6.7 mg/dL (8.4-10.2); Carbon Dioxide 22 mmol/L (22-30); Chloride 96 mmol/L (98-107); Glucose 190 mg/dL (74-99); Non-African American GFR(CKD) 10 (>60 ml/min/1.73 sqM); Sodium 130 mmol/L (137-145); Total Bilirubin 0.6 mg/dL (0.2-1.3); Total Protein 4.8 g/dL (6.3-8.2)
[2023-09-22 05:12] LABS: Glucose,Whole Blood 214 mg/dL (70-110)
--- NOTE | 2023-09-22 06:04 | P.PN ---
Subjective Progress Note Date: 09/22/23 Principal diagnosis: Pneumonia. Patient is a 58-year-old white male with past medical history significant for hypertension, hyperlipidemia, nonocclusive coronary artery disease, and current everyday smoker. I am seeing this patient in the emergency room, after he presented yesterday afternoon with a chief complaint of generalized weakness, fall, shortness of breath and a productive cough. Patient states that starting Tuesday he developed a productive cough with yellow to green sputum. He progressively became more short of breath over the following days. Denies chest pain or hemoptysis. He noticed that he started developing fevers 2 nights ago. He has progressively become more weak. He has had reduced appetite and has not been drinking many oral fluids. He has been having nausea without vomiting. He had a fall yesterday. Denies hitting his head. He states that he more so lowered himself to the floor. States that he should have came in sooner. He is currently sitting in bed, on 3 L/min nasal cannula, he appears dyspneic. He is tachypneic with accessory muscle use. He was noted to be febrile on arrival with a Tmax of 103.3 F, which has been treated with Tylenol.. Chest x-ray demonstrates bilateral infiltrates, greater on the right mid and lower lobes. CBC on arrival demonstrates some leukocytosis with a WBC count of 21.2, otherwise unremarkable. BMP from yesterday has multiple electrolyte abnormalities including: Sodium 123, potassium 3.3, chloride 90, serum bicarb 14, BUN 53, creatinine 6.05, glucose 97. Lactic acid level was elevated at 3.9 and is down to 1.6. Magnesium level 0.9. LFTs mildly elevated. Total bili 1.8. Troponins elevated at 0.102, 0.116, and 0.132 respectively. Negative for influenza, RSV, COVID. Patient has been covered on broad-spectrum antibiotics including vancomycin, Zosyn, and azithromycin. Patient's current respiratory status is labile. On today's evaluation of 09/20/2023, the patient is being seen for a follow-up. Currently, the patient intubated on mechanical ventilator and sedated and paralyzed. This morning, the patient is on a propofol running at 30 mcg/kg/min and the patient is also on fentanyl at 0.3 mcg/kg/h. The patient is on Nimbex at 1 mcg/kg/min. While being on the mechanical ventilator, the patient assist- control mode at a rate of 30, tidal volume of 400, FiO2 is at 90% with a PEEP of 12. Urine output is in order of 20 to 30 cc an hour. Patient remains on norepinephrine running at 0.25 mcg/kg/min and the patient is also on physiologic dose of vasopressin. While on the mechanical ventilator, the peak airway pressure is around 20, CVP is at 16. The patient was resuscitated with IV fluids and the fluid balance is +4.6 L over the past 24 hours. The blood gas shows a pH of 7.2 with a pCO2 of 45 and a pO2 of 86. Chest x-ray is consistent with bilateral pneumonia. The white cell count today is at 26.8 with a hemoglobin of 11 and a platelet count of 225. Sodium is at 123, potassium level is at 4.2, serum bicarb is at 15, BUN is at 7 6. Creatinine 6.85. The patient total calcium level is at 5.9 and the corrected calcium level is at 7.1. Phosphorus level is at 9.8. LFTs show an bilirubin of 1.2, AST of 420, ALT of 200. The patient remains on a combination of antibiotics including IV cefepime, vancomycin and Zithromax. I performed a bronchoscopy endobronchial lavage of the right lower lobe. There was purulent respiratory secretions the right lung base that was suctioned out without any major difficulties. Blood cultures are negative thus far. The patient was also started on enteral feeding for nutritional support. Abdominal ultrasound showed normal common bile duct, normal kidneys without evidence of any hydronephrosis. Will on today's evaluation of 09/21/2023, the patient remains intubated on mechanical ventilator. Diagnosed having the Legionella pneumonia and urine antigen was positive. Bronchoscopy was done and the bronchial lavage results are still pending for now. This morning, the patient is on propofol running at 45 mcg/kg/min and the patient is also on fentanyl at 0.5 mcg/kg/h and Nimbex at 2 mcg/kg. Minutes. IV fluids are currently at KVO. Pressors have been off since midnight. The patient is hemodynamically stable. Underwent hemodialysis yesterday with a total of 2 L of ultrafiltration. Another session is in [facility] this morning. Remains on mechanical ventilator on assist-control mode and the patient is at rate of 30, tidal volume 400, FiO2 of 80% with a PEEP of 15. Blood gas showed pH of 7.42 with a pCO2 of 56 and pO2 of 101. Chest x-ray shows bilateral pulmonary consolidation consistent with pneumonia. Peak airway pressure is around 28. Patient is currently on Nepro at rate of 20 cc an hour. The white cell count of 25.8, hemoglobin 10.7 and a platelet count of 235. Blood gases was noted. Sodium levels at 129, potassium is at 4.2 with a BUN of 69 and creatinine of 6. LFTs are still mildly elevated. Vancomycin was discontinued. Zithromax was discontinued and the patient was started on Levaquin 500 mg every 48 hours. IV cefepime was maintained. Progress note dated September 22, 2023. The patient is seen in the intensive care unit, room 252. The patient remains mechanically ventilated. Settings include volume assist-control, rate 30, tidal volume 600, FiO2 60%, PEEP of 15. The patient was admitted to the hospital on September 17 with a diagnosis of pneumonia. The patient was diagnosed as having Legionella haemophilus pneumonia. He was intubated for respiratory failure on September 18. Currently, he is on propofol at 50 mcg/kg/min, fentanyl at 2 mcg/kg/h and Nepro at 41 cc an hour which is goal. He had hemodialysis on September 19 and September 20, both times, 2 L was removed. Current laboratory data includes a white count 20.9, hemoglobin 9.4, hematocrit 26.6, and platelet count 238,000. Sodium 130, potassium 4, chloride 96, CO2 22, BUN 69, creatinine 5.59. Glucose is 214. The patient continues on cefepime, and Levaquin. Chest x-ray shows bilateral consolidations, particularly in the right midlung and in the left lower lobe. Objective - Vital Signs Vital signs: Vital Signs Temp 100.0 F H 09/22/23 00:00 Pulse 105 H 09/22/23 04:17 Resp 30 H 09/22/23 03:00 BP 161/80 09/22/23 03:00 Pulse Ox 92 L 09/22/23 03:00 FiO2 60 09/22/23 04:05 Intake & Output 09/21/23 09/21/23 09/22/23 06:59 18:59 06:59 Intake Total 722.726 7605.694 734.139 Output Total 133 2603 58 Balance 810.237 -1071.306 676.139 Weight 100.7 kg Intake: IV 78 242 128 0.9 NS 120 80 A line 39 36 24 CVP 39 36 24 Cefepime 1 gm In Sodium 50 Chloride 0.9% 50 ml @ 12. 5 mls/hr IVPB DAILY [facility] Rx#:[id number] Intake, IV Titration 585.237 389.694 316.139 Amount Cisatracurium 200 mg In 112.823 34.909 Sodium Chloride 0.9% 180 ml @ 1 MCG/KG/MIN 5.035 mls/hr IV .Q24H [facility] Rx#: [id number] Norepinephrine 8 mg In 153.902 Sodium Chloride 0.9% 250 ml @ 0.03 MCG/KG/MIN 4. 871 mls/hr IV .Q24H [facility] Rx#:[id number] Vasopressin 60 unit In 125.537 Sodium Chloride 0.9% 150 ml @ 0.03 UNITS/MIN 4.59 mls/hr IV .Q24H [facility] Rx#: [id number] fentaNYL (PF). 1,000 mcg 19.716 110.283 70.001 In Sodium Chloride 0.9% 80 ml @ 0.5 MCG/KG/HR 4. 196 mls/hr IV .[id number] [facility] Rx#:[id number] propofoL 1,000 mg In 173.259 244.502 246.138 Empty Bag 1 bag @ 15 MCG/ KG/MIN 7.552 mls/hr IV . [id number] [facility] Rx#:[id number] Oral 60 Tube Feeding 280 280 290 Hemodialysis 500 Other 60 Output: Urine 133 103 58 Hemodialysis 2500 Other: Voiding Method Indwelling Catheter Indwelling Catheter Indwelling Catheter ABP, PAP, CO, CI - Last Documented Arterial Blood Pressure 91/86 - Exam No acute distress, sedated, with an orally placed endotracheal tube. HEENT examination is grossly unremarkable. Neck supple. Full range of motion. No adenopathy thyromegaly or neck vein distention. Cardiovascular examination reveals regular rhythm rate. S1-S2 normal. No S3 or S4. No discernible murmur noted. Heart sounds are distant. Heart rate 105 bpm. Lungs reveal scattered bilateral rhonchi. No wheezes or crackles. Breath so unds equal. Saturations are in the low 90s. Abdomen soft with bowel sounds. No masses or tenderness. Extremities are intact. No cyanosis clubbing or edema. Skin is without rash or lesion. Neurologic examination cannot be assessed as the patient is currently sedated. - Labs CBC & Chem 7: 09/22/23 04:10 09/22/23 04:10 Labs: Abnormal Lab Results - Last 24 Hours (Table) 09/21/23 09/21/23 09/21/23 Range/Units 08:48 11:35 16:54 WBC (3.8-10.6) k/uL RBC (4.30-5.90) m/uL Hgb (13.0-17.5) gm/dL Hct (39.0-53.0) % RDW (11.5-15.5) % Sodium (137-145) mmol/L Chloride (98-107) mmol/L BUN (9-20) mg/dL Creatinine (0.66-1.25) mg/dL Glucose (74-99) mg/dL POC Glucose (mg/dL) 163 H 146 H 224 H (70-110) mg/dL Calcium (8.4-10.2) mg/dL AST (17-59) U/L ALT (4-49) U/L Alkaline Phosphatase (38-126) U/L Total Protein (6.3-8.2) g/dL Albumin (3.5-5.0) g/dL 09/21/23 09/22/23 09/22/23 Range/Units 23:31 04:10 04:10 WBC 20.9 H (3.8-10.6) k/uL RBC 2.78 L (4.30-5.90) m/uL Hgb 9.4 L (13.0-17.5) gm/dL Hct 26.6 L (39.0-53.0) % RDW 15.6 H (11.5-15.5) % Sodium 130 L (137-145) mmol/L Chloride 96 L (98-107) mmol/L BUN 69 H (9-20) mg/dL Creatinine 5.59 H (0.66-1.25) mg/dL Glucose 190 H (74-99) mg/dL POC Glucose (mg/dL) 201 H (70-110) mg/dL Calcium 6.7 L (8.4-10.2) mg/dL AST 117 H (17-59) U/L ALT 123 H (4-49) U/L Alkaline Phosphatase 152 H (38-126) U/L Total Protein 4.8 L (6.3-8.2) g/dL Albumin 2.5 L (3.5-5.0) g/dL 09/22/23 Range/Units 05:10 WBC (3.8-10.6) k/uL RBC (4.30-5.90) m/uL Hgb (13.0-17.5) gm/dL Hct (39.0-53.0) % RDW (11.5-15.5) % Sodium (137-145) mmol/L Chloride (98-107) mmol/L BUN (9-20) mg/dL Creatinine (0.66-1.25) mg/dL Glucose (74-99) mg/dL POC Glucose (mg/dL) 214 H (70-110) mg/dL Calcium (8.4-10.2) mg/dL AST (17-59) U/L ALT (4-49) U/L Alkaline Phosphatase (38-126) U/L Total Protein (6.3-8.2) g/dL Albumin (3.5-5.0) g/dL Microbiology - Last 24 Hours (Table) 09/18/23 13:35 Blood Culture - Preliminary Blood 09/18/23 13:50 Blood Culture - Preliminary Blood 09/20/23 11:03 Acid Fast Bacilli Smear - Preliminary Bronchoalviolar Lavage - Right 09/19/23 22:45 Gram Stain - Preliminary Sputum Sputum Culture - Preliminary Farzana albicans 09/20/23 11:03 Gram Stain - Preliminary Bronchoalviolar Lavage - Right Assessment and Plan Assessment: Acute hypoxic respiratory failure secondary to Legionella pneumonia and the patient has bilateral multilobar pneumonia, the patient is currently intubated on mechanical ventilator. Intubation was performed on 09/19/2023. Bronchoscopy endobronchial lavage of the right lower lobe was done. The Legionella urine antigen was positive and the patient remains on Levaquin and cefepime for now. He remains intubated on mechanical ventilator. Remains sedated and paralyzed. Shock, likely septic in nature, improved and the patient is currently off pressors. Acute COPD exacerbation secondary to above Severe dehydration at time of admission and the patient has been medically resuscitated IV fluids. Multiple electrolyte abnormalities including hyponatremia, hypokalemia, severe hypomagnesemia, which are being replaced Acute kidney injury, likely secondary to severe dehydration, sepsis, and acute tubular necrosis. No evidence of any hydronephrosis. The patient has diminished urine output and the creatinine remains elevated. Nephrology is on the case and the patient is undergoing daily hemodialysis, last session was yesterday Mild transaminitis, secondary to sepsis Elevated troponins, likely supply/demand mismatch History of hypertension History of hyperlipidemia History of coronary artery disease Current everyday smoker, with a 30 to 40 pack year history Plan: Plan dated September 22, 2023. The patient is currently sedated, and receiving both fentanyl and propofol for sedation. The patient did receive hemodialysis, on September 19 and September 20, both times, 2 L was removed. Currently, the patient is on 60% FiO2, and PEEP of 15. Not likely to be extubated at this time. The patient's medications are reviewed. The patient continues on cefepime and Levaquin. Labs, x-rays, and medications all reviewed. Prognosis is guarded. We will continue to follow make recommendations along the way. The patient is currently off all vasopressors. He is continuing with enteral nutrition, and breathing treatments/bronchodilators. Time with Patient: Greater than 30
[2023-09-22 06:18] LABS: ABG Base Excess -0.2 mmol/L; ABG HCO3 26 mmol/L (21-25); ABG Oxygen Saturation 93.7 % (94-97); ABG PCO2 49 mmHg (35-45); ABG PH 7.33 (7.35-7.45); ABG PO2 70 mmHg (83-108); ABG TCO2 27 mmol/L (19-24); Allen Test Performed? Yes
--- NOTE | 2023-09-22 07:20 | P.PN ---
Subjective Progress Note Date: 09/22/23 PROGRESS NOTE The patient is a 58-year-old male with a known history of hypertension, hyperlipidemia, chronic tobacco use who presented with progressive dyspnea and evidence of extensive pneumonia. He had mild troponin elevation. During the afternoon he became more dyspneic requiring mechanical ventilation. He is intubated and sedated. He continues to be in sinus mechanism. He is requiring vasopressors. His urine output was low but improving. There is no evidence of atrial fibrillation. He had an echocardiogram pending. In March 2023 his left ventricle systolic function was normal with no significant valvular disease. His chest x-ray revealed significant opacification, more prominent on the right lung September 20: The patient remains intubated and sedated. He is off vasopressors. He has poor urinary output. He underwent bronchoscopy yesterday. He continues to be in sinus mechanism. His echocardiogram showed an ejection fraction of 50 to 55% with no clear valvular abnormalities. He underwent placement of catheter for dialysis. Chest x-ray continues to show significant opacification bilaterally, more on the right lung. September 21: The patient remains intubated and sedated. He is in sinus mechanism with no evidence of malignant arrhythmia. Hemodynamically there is no evidence of atrial fibrillation. He was diagnosed with Legionella pneumonia. He is off vasopressors. He continues to have significant infiltrate on his chest x-ray more on the right side. He underwent dialysis yesterday. He is waking up and moving his upper extremities and opening his eyes Medications: Plavix 75 mg daily, metoprolol 25 mg twice a day,Nimbex, calcium carbonate, methylprednisone, cefepime, Levaquin PHYSICAL EXAMINATION: Blood pressure 160/80 heart rate 108, afebrile. Intubated LUNGS: Clear to auscultation anteriorly HEART: Regular rate and rhythm, S1, S2. No S3. No systolic murmur ABDOMEN: Soft, no organomegaly EXTREMETIES: No edema LAB: pH 7.33, pO2 70, WBC 20.9, hemoglobin 9.4. BUN 69, creatinine 5.59. Potassium 4.0. Sodium 130, calcium 6.7. AST 117 IMPRESSION: 1. Acute respiratory failure with extensive pneumonia requiring mechanical ventilation, Legionella pneumonia 2. Acute renal injury, received dialysis 3. Troponin elevation secondary to type II event with pneumonia and acute renal injury with preserved systolic function 4. History of CAD 5. History of chronic tobacco use 6. Hypertension PLAN: 1. Dialysis per renal service 2. Follow blood pressure and adjust treatment depending on his mental status. His blood pressure is elevated at this time because he is waking up 3. Depending on his progress further recommendations will be made Objective - Vital Signs Vital signs: Vital Signs Temp 100.5 F H 09/22/23 04:00 Pulse 105 H 09/22/23 07:00 Resp 30 H 09/22/23 07:00 BP 164/85 09/22/23 07:00 Pulse Ox 91 L 09/22/23 07:00 FiO2 60 09/22/23 07:00 Intake & Output 09/21/23 09/22/23 09/22/23 18:59 06:59 18:59 Intake Total 1531.694 996.139 54 Output Total 2603 76 8 Balance -1071.306 920.139 46 Weight 97.1 kg Intake: IV 242 167 13 0.9 NS 120 110 10 A line 36 24 0 CVP 36 33 3 Cefepime 1 gm In Sodium 50 Chloride 0.9% 50 ml @ 12. 5 mls/hr IVPB DAILY [facility] Rx#:[id number] Intake, IV Titration 389.694 416.139 Amount Cisatracurium 200 mg In 34.909 Sodium Chloride 0.9% 180 ml @ 1 MCG/KG/MIN 5.035 mls/hr IV .Q24H [facility] Rx#: [id number] fentaNYL (PF). 1,000 mcg 110.283 170.001 In Sodium Chloride 0.9% 80 ml @ 0.5 MCG/KG/HR 4. 196 mls/hr IV .[id number] [facility] Rx#:[id number] propofoL 1,000 mg In 244.502 246.138 Empty Bag 1 bag @ 15 MCG/ KG/MIN 7.552 mls/hr IV . [id number] [facility] Rx#:[id number] Oral 60 Tube Feeding 280 413 41 Hemodialysis 500 Other 60 Output: Urine 103 76 8 Hemodialysis 2500 Other: Voiding Method Indwelling Catheter Indwelling Catheter # Bowel Movements 0 ABP, PAP, CO, CI - Last Documented Arterial Blood Pressure 92/87 - Labs CBC & Chem 7: 09/22/23 04:10 09/22/23 04:10 Labs: Abnormal Lab Results - Last 24 Hours (Table) 09/21/23 09/21/2324 Range/Units 08:48 11:35 16:54 WBC (3.8-10.6) k/uL RBC (4.30-5.90) m/uL Hgb (13.0-17.5) gm/dL Hct (39.0-53.0) % RDW (11.5-15.5) % ABG pH (7.35-7.45) ABG pCO2 (35-45) mmHg ABG pO2 (83-108) mmHg ABG HCO3 (21-25) mmol/L ABG Total CO2 (19-24) mmol/L ABG O2 Saturation (94-97) % Sodium (137-145) mmol/L Chloride (98-107) mmol/L BUN (9-20) mg/dL Creatinine (0.66-1.25) mg/dL Glucose (74-99) mg/dL POC Glucose (mg/dL) 163 H 146 H 224 H (70-110) mg/dL Calcium (8.4-10.2) mg/dL AST (17-59) U/L ALT (4-49) U/L Alkaline Phosphatase (38-126) U/L Total Protein (6.3-8.2) g/dL Albumin (3.5-5.0) g/dL 09/21/23 09/22/23 09/22/23 Range/Units 23:31 04:10 04:10 WBC 20.9 H (3.8-10.6) k/uL RBC 2.78 L (4.30-5.90) m/uL Hgb 9.4 L (13.0-17.5) gm/dL Hct 26.6 L (39.0-53.0) % RDW 15.6 H (11.5-15.5) % ABG pH (7.35-7.45) ABG pCO2 (35-45) mmHg ABG pO2 (83-108) mmHg ABG HCO3 (21-25) mmol/L ABG Total CO2 (19-24) mmol/L ABG O2 Saturation (94-97) % Sodium 130 L (137-145) mmol/L Chloride 96 L (98-107) mmol/L BUN 69 H (9-20) mg/dL Creatinine 5.59 H (0.66-1.25) mg/dL Glucose 190 H (74-99) mg/dL POC Glucose (mg/dL) 201 H (70-110) mg/dL Calcium 6.7 L (8.4-10.2) mg/dL AST 117 H (17-59) U/L ALT 123 H (4-49) U/L Alkaline Phosphatase 152 H (38-126) U/L Total Protein 4.8 L (6.3-8.2) g/dL Albumin 2.5 L (3.5-5.0) g/dL 09/22/23 09/22/23 Range/Units 05:10 06:18 WBC (3.8-10.6) k/uL RBC (4.30-5.90) m/uL Hgb (13.0-17.5) gm/dL Hct (39.0-53.0) % RDW (11.5-15.5) % ABG pH 7.33 L (7.35-7.45) ABG pCO2 49 H (35-45) mmHg ABG pO2 70 L (83-108) mmHg ABG HCO3 26 H (21-25) mmol/L ABG Total CO2 27 H (19-24) mmol/L ABG O2 Saturation 93.7 L (94-97) % Sodium (137-145) mmol/L Chloride (98-107) mmol/L BUN (9-20) mg/dL Creatinine (0.66-1.25) mg/dL Glucose (74-99) mg/dL POC Glucose (mg/dL) 214 H (70-110) mg/dL Calcium (8.4-10.2) mg/dL AST (17-59) U/L ALT (4-49) U/L Alkaline Phosphatase (38-126) U/L Total Protein (6.3-8.2) g/dL Albumin (3.5-5.0) g/dL Microbiology - Last 24 Hours (Table) 09/18/23 13:35 Blood Culture - Preliminary Blood 09/18/23 13:50 Blood Culture - Preliminary Blood 09/20/23 11:03 Acid Fast Bacilli Smear - Preliminary Bronchoalviolar Lavage - Right 09/19/23 22:45 Gram Stain - Preliminary Sputum Sputum Culture - Preliminary Farzana albicans 09/20/23 11:03 Gram Stain - Preliminary Bronchoalviolar Lavage - Right
[2023-09-22] MEDS ORDERED: LORazepam 2 MG/ML INJ IV PRN ×4 (07:53→16:56)
[2023-09-22] MEDS: LORazepam 2 MG/ML INJ IV PRN (08:03)
--- NOTE | 2023-09-22 09:21 | XR ---
EXAMINATION TYPE: XR chest 1V portable DATE OF EXAM: 09/22/2023 5:46 AM CLINICAL INDICATION:Male, 58 years old with history of Tube placement; [facility] COMPARISON: Chest radiograph from one day prior. TECHNIQUE: XR chest 1V portable Frontal view of the chest. FINDINGS: Lungs/Pleura: Lower lung volumes from prior exam. Multifocal airspace opacities. No evidence of pneum othorax or pleural effusion. Pulmonary vascularity: Unremarkable. Heart/mediastinum: Cardiomediastinal silhouette is unremarkable. Musculoskeletal: No acute osseous pathology. Other findings: None Lines/Tubes: Endotracheal tube with distal tip 4.2 cm above the teressa. Nasogastric tube with its distal tip and side-port projecting under the diaphragm. Left central venous catheter with distal tip at the cavoatrial junction. IMPRESSION: 1. Lower lung volumes, Similar multifocal airspace opacities. 2. Stable support lines and tubes.
--- NOTE | 2023-09-22 09:39 | P.PN ---
Subjective Patient is seen in follow-up for acute kidney injury. Started on hemodialysis September 20, 2023. Tolerated 2 L ultrafiltration yesterday. Intubated. Off vasopressors. Oliguric. Vital signs are stable. General: Resting in bed. HEENT: Intubated. LUNGS: Scattered rhonchi. HEART: Rate and Rhythm are regular. ABDOMEN: No distention. EXTREMITITES: 1+ edema. Objective - Vital Signs Vital signs: Vital Signs Temp 100.5 F H 09/22/23 04:00 Pulse 108 H 09/22/23 09:00 Resp 27 H 09/22/23 09:00 BP 166/82 09/22/23 09:00 Pulse Ox 92 L 09/22/23 09:00 FiO2 35 09/22/23 08:00 Intake & Output 09/21/23 09/22/23 09/22/23 18:59 06:59 18:59 Intake Total 1531.694 996.139 349.034 Output Total 2603 76 23 Balance -1071.306 920.139 326.034 Weight 97.1 kg Intake: IV 242 167 89 0.9 NS 120 110 30 A line 36 24 0 CVP 36 33 9 Cefepime 1 gm In Sodium 50 50 Chloride 0.9% 50 ml @ 12. 5 mls/hr IVPB DAILY [facility] Rx#:[id number] Intake, IV Titration 389.694 416.139 77.034 Amount Cisatracurium 200 mg In 34.909 Sodium Chloride 0.9% 180 ml @ 1 MCG/KG/MIN 5.035 mls/hr IV .Q24H [facility] Rx#: [id number] fentaNYL (PF). 1,000 mcg 110.283 170.001 In Sodium Chloride 0.9% 80 ml @ 0.5 MCG/KG/HR 4. 196 mls/hr IV .[id number] [facility] Rx#:[id number] propofoL 1,000 mg In 244.502 246.138 77.034 Empty Bag 1 bag @ 15 MCG/ KG/MIN 7.552 mls/hr IV . [id number] [facility] Rx#:[id number] Oral 60 Tube Feeding 280 413 123 Hemodialysis 500 Other 60 60 Output: Urine 103 76 23 Hemodialysis 2500 Other: Voiding Method Indwelling Catheter Indwelling Catheter # Bowel Movements 0 ABP, PAP, CO, CI - Last Documented Arterial Blood Pressure 92/87 - Labs CBC & Chem 7: 09/22/23 04:10 09/22/23 04:10 Labs: Abnormal Lab Results - Last 24 Hours (Table) 09/21/23 09/21/23 09/21/23 Range/Units 11:35 16:54 23:31 WBC (3.8-10.6) k/uL RBC (4.30-5.90) m/uL Hgb (13.0-17.5) gm/dL Hct (39.0-53.0) % RDW (11.5-15.5) % ABG pH (7.35-7.45) ABG pCO2 (35-45) mmHg ABG pO2 (83-108) mmHg ABG HCO3 (21-25) mmol/L ABG Total CO2 (19-24) mmol/L ABG O2 Saturation (94-97) % Sodium (137-145) mmol/L Chloride (98-107) mmol/L BUN (9-20) mg/dL Creatinine (0.66-1.25) mg/dL Glucose (74-99) mg/dL POC Glucose (mg/dL) 146 H 224 H 201 H (70-110) mg/dL Calcium (8.4-10.2) mg/dL AST (17-59) U/L ALT (4-49) U/L Alkaline Phosphatase (38-126) U/L Total Protein (6.3-8.2) g/dL Albumin (3.5-5.0) g/dL 09/22/23 09/22/23 09/22/23 Range/Units 04:10 04:10 05:10 WBC 20.9 H (3.8-10.6) k/uL RBC 2.78 L (4.30-5.90) m/uL Hgb 9.4 L (13.0-17.5) gm/dL Hct 26.6 L (39.0-53.0) % RDW 15.6 H (11.5-15.5) % ABG pH (7.35-7.45) ABG pCO2 (35-45) mmHg ABG pO2 (83-108) mmHg ABG HCO3 (21-25) mmol/L ABG Total CO2 (19-24) mmol/L ABG O2 Saturation (94-97) % Sodium 130 L (137-145) mmol/L Chloride 96 L (98-107) mmol/L BUN 69 H (9-20) mg/dL Creatinine 5.59 H (0.66-1.25) mg/dL Glucose 190 H (74-99) mg/dL POC Glucose (mg/dL) 214 H (70-110) mg/dL Calcium 6.7 L (8.4-10.2) mg/dL AST 117 H (17-59) U/L ALT 123 H (4-49) U/L Alkaline Phosphatase 152 H (38-126) U/L Total Protein 4.8 L (6.3-8.2) g/dL Albumin 2.5 L (3.5-5.0) g/dL 09/22/23 Range/Units 06:18 WBC (3.8-10.6) k/uL RBC (4.30-5.90) m/uL Hgb (13.0-17.5) gm/dL Hct (39.0-53.0) % RDW (11.5-15.5) % ABG pH 7.33 L (7.35-7.45) ABG pCO2 49 H (35-45) mmHg ABG pO2 70 L (83-108) mmHg ABG HCO3 26 H (21-25) mmol/L ABG Total CO2 27 H (19-24) mmol/L ABG O2 Saturation 93.7 L (94-97) % Sodium (137-145) mmol/L Chloride (98-107) mmol/L BUN (9-20) mg/dL Creatinine (0.66-1.25) mg/dL Glucose (74-99) mg/dL POC Glucose (mg/dL) (70-110) mg/dL Calcium (8.4-10.2) mg/dL AST (17-59) U/L ALT (4-49) U/L Alkaline Phosphatase (38-126) U/L Total Protein (6.3-8.2) g/dL Albumin (3.5-5.0) g/dL Microbiology - Last 24 Hours (Table) 09/18/23 13:35 Blood Culture - Preliminary Blood 09/18/23 13:50 Blood Culture - Preliminary Blood 09/20/23 11:03 Acid Fast Bacilli Smear - Preliminary Bronchoalviolar Lavage - Right 04/29/24 22:45 Gram Stain - Preliminary Sputum Sputum Culture - Preliminary Farzana albicans 09/20/23 11:03 Gram Stain - Preliminary Bronchoalviolar Lavage - Right Assessment and Plan Plan: Assessment: 1. Acute kidney injury secondary to ATN secondary to septic shock. Creatinine 0.8-0.9 in March 2023. This admission creatinine was near 6 with no improvement. Oliguric. Started on hemodialysis September 20, 2023. No hydronephrosis noted on imaging. 2. Septic shock secondary to pneumonia maintained on antibiotics. Urine Legionella antigen positive. 3. Acute hypoxic respiratory failure. On 60% FiO2. 4. Hypervolemic hyponatremia. Improved. 5. Volume overload. 6. Metabolic acidosis secondary to acute kidney injury. Improved. Plan: Hemodialysis today and again tomorrow. Wean FiO2. Avoid nephrotoxins. Monitor for renal recovery. 80 mg IV Lasix once today. Check phosphorus level. Follow-up pending serologies. Negative so far.
[2023-09-22 11:28] LABS: Glucose,Whole Blood 229 mg/dL (70-110)
--- NOTE | 2023-09-22 11:49 | P.PN ---
Subjective Progress Note Date: 09/22/23 58-year-old male with history of hypertension, dyslipidemia, coronary artery disease presenting with shortness of breath. In the ED, temperature was 103.3, pulse 131, respiratory rate 30, blood pressure 118/86, saturating 88% on room air. WBC 21.2, hemoglobin 13, pH 7.41, pCO2 33, sodium 122, potassium 3.4, bicarb 18, anion gap 20, creatinine 5.94, lactic acid 3.9, magnesium 0.9, total bili 1.8, AST 110, ALT 53, ALP 105, troponin 0.102. Respiratory viral panel negative. Chest x-ray shows multifocal pneumonia right lower lobe greater than left. EKG shows sinus tachycardia with right bundle you block. Pelvic x-ray shows no acute process. Head CT shows no acute process. Pulmonology, nephrolo gy, cardiology consulted. Respiratory function progressively worsening despite being on broad-spectrum antibiotics. Patient is was subsequently intubated, on vasopressors. Troponin mildly elevated 0.102, 0.116, 0.132. Cardiology consulted, Echo EF 50-55% with no regional wall motion abnormalities, likely Type II [place]. Right femoral HD catheter inserted 09/19. He underwent bronchoscopy with lavage on 09/19 with significant purulence noted in the RLL. 09/20 Patient was seen and examined. Intubated. Currently on Fentanyl and Propofol. Vasopressin and Levophed weaned off. Undergoing HD. CBC WBC 25.8, Hg 10.7, Hct 31.7. ABG pH 7.22, pCO2 56. CMP Na 129, Cl 95, bicarb 16, BUN 67, Cr 6.04, glu 157, Ca 6.4, AST 239, ALT 173, alk phos 147, alb 2.6. His Legionella Ag is postiive. CXR done this morning shows similar bilateral infiltrates. 09/21 Patient was seen and examined. Intubated. He was agitated this morning on max dose of Propofol and Fentanyl. BP 180/96 HR 112. Possible EtOH withdrawal, started on CIWA protocol and given Ativan PRN. CXR shows persistent bilateral infiltrates. Antibiotics include Levaquin (renally dosed). CBC WBC 20.9, Hg 9.4, Hct 26.6. ABG p 7.33, pCO2 49. BMP Na 130, Cl 96, BUN 69, Cr 5.59, glu 190, Ca 6.7, AST 117, ALT 123, alk phos 152, alb 2.5. BAL cultures growing farzana albicans. Nephrology plans for HD today. General: Intubated Derm: warm, dry Head: atraumatic, normocephalic, symmetric Eyes: no lid lag, normal sclera Mouth: no lip lesion, mucus membranes moist Cardiovascular: Normal S1 S2. No murmurs, rubs, gallops Lungs: Coarse BS BL, no accessory muscle use Ext: no gross muscle atrophy, trace LE edema, no contractures Neuro: Intubated Psych: Intubated Based on my assessment of this patient, this patient meets a high complexity level of care. Acute hypoxic respiratory failure due to below Septic shock due to Legionella pneumonia: Levofloxacin 500 mg IV Q48H started 09/19 and Cefepime 1g IV QD. Vancomycin and Azithromycin discontinued. Levophed titrated to maintain MAP > 65. Telemetry monitoring. Follow BAL and Blood cultures. Pulmonary on board. ID on board. Troponin elevation, Type II KS: Plavix 75 mg PO QD. Metoprolol 25 mg PO BID. Acute kidney injury: Hold Lisinopril-HCTZ. HD catheter inserted 09/19. Plans for HD. Nephrology on board. Hyponatremia: Likely related to severe dehydration and Legionella. Hypocalcemia: Status post 1g Ca gluconate 09/19. Corrected Ca today 7.4. Tums 500 mg PO TID. Transaminitis: Abd US intermediate legion in the right hepatic lobe, MRI recommended. CBD within normal limits. Normocytic anemia: Stable. no signs of active bleeding. Monitor. Chronic conditions: Hypertension now hypotensive Dyslipidemia Smoker CODE STATUS: FULL CODE DVT Prophylaxis: Heparin SQ GI Prophylaxis: Protonix IV Designated medical POA if patient is not able to make medical decisions for themselves: I have reviewed the following senior product consultant notes: Pulmonary, Cardiology, Nephrology. I have reviewed the results of the following tests: CBC. CMP. ABG I have ordered the following tests: Daily CBC and BMP. I have discussed the care of this patient with the following independent historian: I have independently interpreted the following test below: CXR I have discussed the management of this patient with the following physician: Objective - Vital Signs Vital signs: Vital Signs Temp 100.5 F H 09/22/23 04:00 Pulse 104 H 09/22/23 11:16 Resp 24 09/22/23 11:00 BP 154/86 09/22/23 11:00 Pulse Ox 93 L 09/22/23 11:00 FiO2 60 09/22/23 11:01 Intake & Output 09/21/23 09/22/23 09/22/23 18:59 06:59 18:59 Intake Total 1531.694 996.139 457.034 Output Total 2603 76 29 Balance -1071.306 920.139 428.034 Weight 97.1 kg Intake: IV 242 167 115 0.9 NS 120 110 50 A line 36 24 0 CVP 36 33 15 Cefepime 1 gm In Sodium 50 50 Chloride 0.9% 50 ml @ 12. 5 mls/hr IVPB DAILY [facility] Rx#:[id number] Intake, IV Titration 389.694 416.139 77.034 Amount Cisatracurium 200 mg In 34.909 Sodium Chloride 0.9% 180 ml @ 1 MCG/KG/MIN 5.035 mls/hr IV .Q24H [facility] Rx#: [id number] fentaNYL (PF). 1,000 mcg 110.283 170.001 In Sodium Chloride 0.9% 80 ml @ 0.5 MCG/KG/HR 4. 196 mls/hr IV .[id number] [facility] Rx#:[id number] propofoL 1,000 mg In 244.502 246.138 77.034 Empty Bag 1 bag @ 15 MCG/ KG/MIN 7.552 mls/hr IV . [id number] [facility] Rx#:[id number] Oral 60 Tube Feeding 280 413 205 Hemodialysis 500 Other 60 60 Output: Urine 103 76 29 Hemodialysis 2500 Other: Voiding Method Indwelling Catheter Indwelling Catheter Indwelling Catheter # Bowel Movements 0 ABP, PAP, CO, CI - Last Documented Arterial Blood Pressure 92/87 - Labs CBC & Chem 7: 09/22/23 04:10 09/22/23 04:10 Labs: Abnormal Lab Results - Last 24 Hours (Table) 09/21/23 09/21/23 09/21/23 Range/Units 11:35 16:54 23:31 WBC (3.8-10.6) k/uL RBC (4.30-5.90) m/uL Hgb (13.0-17.5) gm/dL Hct (39.0-53.0) % RDW (11.5-15.5) % ABG pH (7.35-7.45) ABG pCO2 (35-45) mmHg ABG pO2 (83-108) mmHg ABG HCO3 (21-25) mmol/L ABG Total CO2 (19-24) mmol/L ABG O2 Saturation (94-97) % Sodium (137-145) mmol/L Chloride (98-107) mmol/L BUN (9-20) mg/dL Creatinine (0.66-1.25) mg/dL Glucose (74-99) mg/dL POC Glucose (mg/dL) 146 H 224 H 201 H (70-110) mg/dL Calcium (8.4-10.2) mg/dL AST (17-59) U/L ALT (4-49) U/L Alkaline Phosphatase (38-126) U/L Total Protein (6.3-8.2) g/dL Albumin (3.5-5.0) g/dL 09/22/23 09/22/23 09/22/23 Range/Units 04:10 04:10 05:10 WBC 20.9 H (3.8-10.6) k/uL RBC 2.78 L (4.30-5.90) m/uL Hgb 9.4 L (13.0-17.5) gm/dL Hct 26.6 L (39.0-53.0) % RDW 15.6 H (11.5-15.5) % ABG pH (7.35-7.45) ABG pCO2 (35-45) mmHg ABG pO2 (83-108) mmHg ABG HCO3 (21-25) mmol/L ABG Total CO2 (19-24) mmol/L ABG O2 Saturation (94-97) % Sodium 130 L (137-145) mmol/L Chloride 96 L (98-107) mmol/L BUN 69 H (9-20) mg/dL Creatinine 5.59 H (0.66-1.25) mg/dL Glucose 190 H (74-99) mg/dL POC Glucose (mg/dL) 214 H (70-110) mg/dL Calcium 6.7 L (8.4-10.2) mg/dL AST 117 H (17-59) U/L ALT 123 H (4-49) U/L Alkaline Phosphatase 152 H (38-126) U/L Total Protein 4.8 L (6.3-8.2) g/dL Albumin 2.5 L (3.5-5.0) g/dL 09/22/23 09/22/23 Range/Units 06:18 11:27 WBC (3.8-10.6) k/uL RBC (4.30-5.90) m/uL Hgb (13.0-17.5) gm/dL Hct (39.0-53.0) % RDW (11.5-15.5) % ABG pH 7.33 L (7.35-7.45) ABG pCO2 49 H (35-45) mmHg ABG pO2 70 L (83-108) mmHg ABG HCO3 26 H (21-25) mmol/L ABG Total CO2 27 H (19-24) mmol/L ABG O2 Saturation 93.7 L (94-97) % Sodium (137-145) mmol/L Chloride (98-107) mmol/L BUN (9-20) mg/dL Creatinine (0.66-1.25) mg/dL Glucose (74-99) mg/dL POC Glucose (mg/dL) 229 H (70-110) mg/dL Calcium (8.4-10.2) mg/dL AST (17-59) U/L ALT (4-49) U/L Alkaline Phosphatase (38-126) U/L Total Protein (6.3-8.2) g/dL Albumin (3.5-5.0) g/dL Microbiology - Last 24 Hours (Table) 09/20/23 11:03 Gram Stain - Preliminary Bronchoalviolar Lavage - Right Bronchial Washings Culture - Preliminary Farzana albicans 09/18/23 13:35 Blood Culture - Preliminary Blood 09/18/23 13:50 Blood Culture - Preliminary Blood 09/20/23 11:03 Acid Fast Bacilli Smear - Preliminary Bronchoalviolar Lavage - Right 09/19/23 22:45 Gram Stain - Preliminary Sputum Sputum Culture - Preliminary Farzana albicans
[2023-09-22] MEDS: hydrALAZINE HCL 20 MG/ML 1 ML VIAL IV PRN (16:34)
[2023-09-22] MEDS: LORazepam 1 MG/0.5 ML VIAL ONE (16:53)
[2023-09-22] MEDS ORDERED: LORazepam 1 MG/0.5 ML VIAL IV PRN ×2 (16:55→16:57)
[2023-09-22 17:09] LABS: Glucose,Whole Blood 201 mg/dL (70-110)
[2023-09-22] MEDS: hydrALAZINE HCL 50 MG TAB PO SCH (17:12)
[2023-09-22] MEDS: LORazepam 1 MG/0.5 ML VIAL IV PRN (20:39)
[2023-09-22] MEDS: FUROSEMIDE 10 MG/ML 10 ML VIAL IV ONE (20:39)
[2023-09-22 21:27] LABS: Protein, Total 4.8 g/dL (6.2-8.2)
[2023-09-23 00:51] LABS: Glucose,Whole Blood 207 mg/dL (70-110)
[2023-09-23 05:25] LABS: Glucose,Whole Blood 199 mg/dL (70-110)
[2023-09-23 05:37] LABS: ABG Base Excess 1.1 mmol/L; ABG HCO3 27 mmol/L (21-25); ABG PCO2 48 mmHg (35-45); ABG PH 7.35 (7.35-7.45); ABG PO2 82 mmHg (83-108); ABG TCO2 28 mmol/L (19-24); Allen Test Performed? Yes
[2023-09-23 05:50] LABS: HGB 9.2 gm/dL (13.0-17.5); MCH 32.7 pg (25.0-35.0); MCHC 34.1 g/dL (31.0-37.0); Mean Platelet Volume 8.7; Platelet Count 311 k/uL (150-450); Poikilocytosis Slight; RBC 2.81 m/uL (4.30-5.90); RDW 15.6 % (11.5-15.5); WBC 16.1 k/uL (3.8-10.6)
[2023-09-23 06:04] LABS: ALT 101 U/L (4-49); AST 67 U/L (17-59); African American GFR (CKD) 10 (>60 ml/min/1.73 sqM); Albumin 2.7 g/dL (3.5-5.0); Alkaline Phosphatase 137 U/L (38-126); Anion Gap 15 mmol/L; Blood Urea Nitrogen 77 mg/dL (9-20); Calcium 7.1 mg/dL (8.4-10.2); Carbon Dioxide 22 mmol/L (22-30); Chloride 95 mmol/L (98-107); Glucose 186 mg/dL (74-99); Non-African American GFR(CKD) 9 (>60 ml/min/1.73 sqM); Potassium 4.3 mmol/L (3.5-5.1); Sodium 132 mmol/L (137-145); Total Bilirubin 0.6 mg/dL (0.2-1.3); Total Protein 5.2 g/dL (6.3-8.2)
--- NOTE | 2023-09-23 07:15 | P.PN ---
Subjective Progress Note Date: 09/23/23 PROGRESS NOTE The patient is a 58-year-old male with a known history of hypertension, hyperlipidemia, chronic tobacco use who presented with progressive dyspnea and evidence of extensive pneumonia. He had mild troponin elevation. During the afternoon he became more dyspneic requiring mechanical ventilation. He is intubated and sedated. He continues to be in sinus mechanism. He is requiring vasopressors. His urine output was low but improving. There is no evidence of atrial fibrillation. He had an echocardiogram pending. In March 2023 his left ventricle systolic function was normal with no significant valvular disease. His chest x-ray revealed significant opacification, more prominent on the right lung September 1: The patient remains intubated and sedated. He is off vasopressors. He has poor urinary output. He underwent bronchoscopy yesterday. He continues to be in sinus mechanism. His echocardiogram showed an ejection fraction of 50 to 55% with no clear valvular abnormalities. He underwent placement of catheter for dialysis. Chest x-ray continues to show significant opacification bilaterally, more on the right lung. September 21: The patient remains intubated and sedated. He is in sinus mechanism with no evidence of malignant arrhythmia. Hemodynamically there is no evidence of atrial fibrillation. He was diagnosed with Legionella pneumonia. He is off vasopressors. He continues to have significant infiltrate on his chest x-ray more on the right side. He underwent dialysis yesterday. He is waking up and moving his upper extremities and opening his eyes September 3: The patient is intubated and sedated. Hemodynamically stable. He is on no vasopressors. He continues to have dialysis. He had a fever yesterday. There is no evidence of malignant arrhythmia. He was diagnosed with Legionella pneumonia and has been receiving antibiotics treatment. He is tolerating tube feeding. He received a dose of IV Lasix without significant response. Medications: Plavix 75 mg daily, metoprolol 25 mg twice a day,Nimbex, calcium carbonate, methylprednisone, cefepime, Levaquin hydralazine 50 mg 3 times daily PHYSICAL EXAMINATION: Blood pressure 143/85 heart rate 100, temperature 101.4. Intubated LUNGS: Clear to auscultation anteriorly HEART: Regular rate and rhythm, S1, S2. No S3. No systolic murmur ABDOMEN: Soft, no organomegaly EXTREMETIES: No edema LAB: pH 7.35, pO2 82, WBC 16.1, hemoglobin 9.2. BUN 77, creatinine 6.24. Potassium 4.3. Sodium 132, calcium 7.1. AST 67 IMPRESSION: 1. Acute respiratory failure with extensive pneumonia requiring mechanical vent ilation, Legionella pneumonia 2. Acute renal injury, received dialysis 3. Troponin elevation secondary to type II event with pneumonia and acute renal injury with preserved systolic function 4. History of CAD 5. History of chronic tobacco use 6. Hypertension PLAN: 1. Dialysis per renal service 2. Adjust hydralazine dose depending on his blood pressure 3. From the cardiac standpoint continue supportive care. We will see him on as-needed basis, please feel free to call us for any question Objective - Vital Signs Vital signs: Vital Signs Temp 101.4 F H 09/23/23 05:00 Pulse 104 H 09/23/23 07:00 Resp 18 09/23/23 07:00 BP 143/85 09/23/23 07:00 Pulse Ox 94 L 09/23/23 07:00 FiO2 60 09/23/23 07:00 Intake & Output 09/22/23 09/23/23 09/23/23 18:59 06:59 18:59 Intake Total 0247.089 0242.970 54 Output Total 3094 136 10 Balance -1313.023 927.970 44 Intake: IV 206 156 13 0.9 NS 120 120 10 A line 0 CVP 36 36 3 Cefepime 1 gm In Sodium 50 Chloride 0.9% 50 ml @ 12. 5 mls/hr IVPB DAILY [facility] Rx#:[id number] Intake, IV Titration 522.977 415.970 Amount fentaNYL (PF). 1,000 mcg 196.782 100 In Sodium Chloride 0.9% 80 ml @ 0.5 MCG/KG/HR 4. 196 mls/hr IV .[id number] [facility] Rx#:[id number] propofoL 1,000 mg In 326.195 315.970 Empty Bag 1 bag @ 15 MCG/ KG/MIN 7.552 mls/hr IV . [id number] [facility] Rx#:[id number] Tube Feeding 492 492 41 Hemodialysis 500 Other 60 Output: Urine 94 136 10 Hemodialysis 3000 Other: Voiding Method Indwelling Catheter Indwelling Catheter # Bowel Movements 0 ABP, PAP, CO, CI - Last Documented Arterial Blood Pressure 92/87 - Labs CBC & Chem 7: 09/23/23 05:22 09/23/23 05:22 Labs: Abnormal Lab Results - Last 24 Hours (Table) 09/22/23 09/22/23 09/22/23 Range/Units 04:10 04:10 11:27 WBC (3.8-10.6) k/uL RBC (4.30-5.90) m/uL Hgb (13.0-17.5) gm/dL Hct (39.0-53.0) % RDW (11.5-15.5) % ABG pCO2 (35-45) mmHg ABG pO2 (83-108) mmHg ABG HCO3 (21-25) mmol/L ABG Total CO2 (19-24) mmol/L Sodium (137-145) mmol/L Chloride (98-107) mmol/L BUN (9-20) mg/dL Creatinine (0.66-1.25) mg/dL Glucose (74-99) mg/dL POC Glucose (mg/dL) 229 H (70-110) mg/dL Calcium (8.4-10.2) mg/dL Phosphorus 6.3 H (2.5-4.5) mg/dL AST (17-59) U/L ALT (4-49) U/L Alkaline Phosphatase (38-126) U/L Total Protein (6.3-8.2) g/dL Total Protein (PEP) 4.8 L (6.2-8.2) g/dL Albumin (3.5-5.0) g/dL 09/22/23 09/23/23 09/23/23 Range/Units 17:07 00:49 05:22 WBC 16.1 H (3.8-10.6) k/uL RBC 2.81 L (4.30-5.90) m/uL Hgb 9.2 L (13.0-17.5) gm/dL Hct 27.0 L (39.0-53.0) % RDW 15.6 H (11.5-15.5) % ABG pCO2 (35-45) mmHg ABG pO2 (83-108) mmHg ABG HCO3 (21-25) mmol/L ABG Total CO2 (19-24) mmol/L Sodium (137-145) mmol/L Chloride (98-107) mmol/L BUN (9-20) mg/dL Creatinine (0.66-1.25) mg/dL Glucose (74-99) mg/dL POC Glucose (mg/dL) 201 H 207 H (70-110) mg/dL Calcium (8.4-10.2) mg/dL Phosphorus (2.5-4.5) mg/dL AST (17-59) U/L ALT (4-49) U/L Alkaline Phosphatase (38-126) U/L Total Protein (6.3-8.2) g/dL Total Protein (PEP) (6.2-8.2) g/dL Albumin (3.5-5.0) g/dL 09/23/23 09/23/23 09/23/23 Range/Units 05:22 05:23 05:35 WBC (3.8-10.6) k/uL RBC (4.30-5.90) m/uL Hgb (13.0-17.5) gm/dL Hct (39.0-53.0) % RDW (11.5-15.5) % ABG pCO2 48 H (35-45) mmHg ABG pO2 82 L (83-108) mmHg ABG HCO3 27 H (21-25) mmol/L ABG Total CO2 28 H (19-24) mmol/L Sodium 132 L (137-145) mmol/L Chloride 95 L (98-107) mmol/L BUN 77 H (9-20) mg/dL Creatinine 6.24 H (0.66-1.25) mg/dL Glucose 186 H (74-99) mg/dL POC Glucose (mg/dL) 199 H (70-110) mg/dL Calcium 7.1 L (8.4-10.2) mg/dL Phosphorus (2.5-4.5) mg/dL AST 67 H (17-59) U/L ALT 101 H (4-49) U/L Alkaline Phosphatase 137 H (38-126) U/L Total Protein 5.2 L (6.3-8.2) g/dL Total Protein (PEP) (6.2-8.2) g/dL Albumin 2.7 L (3.5-5.0) g/dL Microbiology - Last 24 Hours (Table) 09/18/23 13:50 Blood Culture - Preliminary Blood 09/20/23 11:03 Gram Stain - Preliminary Bronchoalviolar Lavage - Right Bronchial Washings Culture - Preliminary Farzana albicans
[2023-09-23] MEDS: LORazepam 1 MG/0.5 ML VIAL IV PRN (10:05)
--- NOTE | 2023-09-23 10:11 | P.PN ---
Subjective Patient is seen in follow-up for acute kidney injury. Started on hemodialysis September 20, 2023. Tolerated 2.5 L ultrafiltration yesterday. Intubated. Off vasopressors. Urine output 8 to 10 cc an hour despite IV Lasix. Vital signs are stable. General: Resting in bed. HEENT: Intubated. LUNGS: Scattered rhonchi. HEART: Rate and Rhythm are regular. ABDOMEN: No distention. EXTREMITITES: 1+ edema. Objective - Vital Signs Vital signs: Vital Signs Temp 101.4 F H 09/23/23 05:00 Pulse 103 H 09/23/23 08:35 Resp 18 09/23/23 07:00 BP 143/85 09/23/23 07:00 Pulse Ox 94 L 09/23/23 07:00 FiO2 60 09/23/23 07:53 Intake & Output 09/22/23 09/23/23 09/23/23 18:59 06:59 18:59 Intake Total 6162.888 0016.970 189.048 Output Total 3094 136 10 Balance -1313.023 927.970 179.048 Weight 99.4 kg Intake: IV 206 156 13 0.9 NS 120 120 10 A line 0 CVP 36 36 3 Cefepime 1 gm In Sodium 50 Chloride 0.9% 50 ml @ 12. 5 mls/hr IVPB DAILY [facility] Rx#:[id number] Intake, IV Titration 522.977 415.970 135.048 Amount fentaNYL (PF). 1,000 mcg 196.782 100 67.412 In Sodium Chloride 0.9% 80 ml @ 0.5 MCG/KG/HR 4. 196 mls/hr IV .[id number] [facility] Rx#:[id number] propofoL 1,000 mg In 326.195 315.970 67.636 Empty Bag 1 bag @ 15 MCG/ KG/MIN 7.552 mls/hr IV . [id number] [facility] Rx#:[id number] Tube Feeding 492 492 41 Hemodialysis 500 Other 60 Output: Urine 94 136 10 Hemodialysis 3000 Other: Voiding Method Indwelling Catheter Indwelling Catheter # Bowel Movements 0 ABP, PAP, CO, CI - Last Documented Arterial Blood Pressure 92/87 - Labs CBC & Chem 7: 09/23/23 05:22 09/23/23 05:22 Labs: Abnormal Lab Results - Last 24 Hours (Table) 09/22/23 09/22/23 09/22/23 Range/Units 04:10 04:10 11:27 WBC (3.8-10.6) k/uL RBC (4.30-5.90) m/uL Hgb (13.0-17.5) gm/dL Hct (39.0-53.0) % RDW (11.5-15.5) % ABG pCO2 (35-45) mmHg ABG pO2 (83-108) mmHg ABG HCO3 (21-25) mmol/L ABG Total CO2 (19-24) mmol/L Sodium (137-145) mmol/L Chloride (98-107) mmol/L BUN (9-20) mg/dL Creatinine (0.66-1.25) mg/dL Glucose (74-99) mg/dL POC Glucose (mg/dL) 229 H (70-110) mg/dL Calcium (8.4-10.2) mg/dL Phosphorus 6.3 H (2.5-4.5) mg/dL AST (17-59) U/L ALT (4-49) U/L Alkaline Phosphatase (38-126) U/L Total Protein (6.3-8.2) g/dL Total Protein (PEP) 4.8 L (6.2-8.2) g/dL Albumin (3.5-5.0) g/dL 09/22/23 09/23/23 09/23/23 Range/Units 17:07 00:49 05:22 WBC 16.1 H (3.8-10.6) k/uL RBC 2.81 L (4.30-5.90) m/uL Hgb 9.2 L (13.0-17.5) gm/dL Hct 27.0 L (39.0-53.0) % RDW 15.6 H (11.5-15.5) % ABG pCO2 (35-45) mmHg ABG pO2 (83-108) mmHg ABG HCO3 (21-25) mmol/L ABG Total CO2 (19-24) mmol/L Sodium (137-145) mmol/L Chloride (98-107) mmol/L BUN (9-20) mg/dL Creatinine (0.66-1.25) mg/dL Glucose (74-99) mg/dL POC Glucose (mg/dL) 201 H 207 H (70-110) mg/dL Calcium (8.4-10.2) mg/dL Phosphorus (2.5-4.5) mg/dL AST (17-59) U/L ALT (4-49) U/L Alkaline Phosphatase (38-126) U/L Total Protein (6.3-8.2) g/dL Total Protein (PEP) (6.2-8.2) g/dL Albumin (3.5-5.0) g/dL 09/23/23 09/23/23 09/23/23 Range/Units 05:22 05:23 05:35 WBC (3.8-10.6) k/uL RBC (4.30-5.90) m/uL Hgb (13.0-17.5) gm/dL Hct (39.0-53.0) % RDW (11.5-15.5) % ABG pCO2 48 H (35-45) mmHg ABG pO2 82 L (83-108) mmHg ABG HCO3 27 H (21-25) mmol/L ABG Total CO2 28 H (19-24) mmol/L Sodium 132 L (137-145) mmol/L Chloride 95 L (98-107) mmol/L BUN 77 H (9-20) mg/dL Creatinine 6.24 H (0.66-1.25) mg/dL Glucose 186 H (74-99) mg/dL POC Glucose (mg/dL) 199 H (70-110) mg/dL Calcium 7.1 L (8.4-10.2) mg/dL Phosphorus (2.5-4.5) mg/dL AST 67 H (17-59) U/L ALT 101 H (4-49) U/L Alkaline Phosphatase 137 H (38-126) U/L Total Protein 5.2 L (6.3-8.2) g/dL Total Protein (PEP) (6.2-8.2) g/dL Albumin 2.7 L (3.5-5.0) g/dL Microbiology - Last 24 Hours (Table) 09/18/23 13:50 Blood Culture - Preliminary Blood 09/20/23 11:03 Gram Stain - Preliminary Bronchoalviolar Lavage - Right Bronchial Washings Culture - Preliminary Farzana albicans Assessment and Plan Plan: Assessment: 1. Acute kidney injury secondary to ATN secondary to septic shock. Creatinine 0.8-0.9 in March 2023. This admission creatinine was near 6 with no improvement. Urine output about 10 cc an hour. Started on hemodialysis September 20, 2023. No hydronephrosis noted on imaging. 2. Septic shock secondary to pneumonia maintained on antibiotics. Urine Legionella antigen positive. 3. Acute hypoxic respiratory failure. On 60% FiO2. 4. Hypervolemic hyponatremia. Improved. 5. Volume overload. 6. Metabolic acidosis secondary to acute kidney injury. Improved. 7. Hyperphosphatemia secondary to acute kidney injury. Plan: Hemodialysis today and again tomorrow. Wean FiO2. Avoid nephrotoxins. Monitor for renal recovery. Add IV Lasix 80 mg once daily. Add PhosLo. Follow-up pending serologies. Negative so far.
--- NOTE | 2023-09-23 11:05 | XR ---
EXAMINATION TYPE: XR chest 1V DATE OF EXAM: 09/23/2023 5:25 AM CLINICAL INDICATION:Male, 58 years old with history of vent; COMPARISON: Chest radiographs from 10/10/2023 TECHNIQUE: XR chest 1V Frontal view of the chest. FINDINGS: Lungs/Pleura: There is no evidence of pleural effusion, focal consolidation, or pneumothorax. Pulmonary vascularity: Unremarkable. Heart/mediastinum: Cardiomediastinal silhouette is unremarkable. Musculoskeletal: No acute osseous pathology. Other findings: None Lines/Tubes: Endotracheal tube with distal tip 4.6 cm above the teressa. Nasogastric tube with its distal tip and side-port projecting under the diaphragm. Left central venous catheter with distal tip at the cavoatrial junction. IMPRESSION: Similar multifocal airspace opacities. Stable support line and tubes.
--- NOTE | 2023-09-23 11:43 | P.PN ---
Subjective Progress Note Date: 09/23/23 58-year-old male with history of hypertension, dyslipidemia, coronary artery disease presenting with shortness of breath. In the ED, temperature was 103.3, pulse 131, respiratory rate 30, blood pressure 118/86, saturating 88% on room air. WBC 21.2, hemoglobin 13, pH 7.41, pCO2 33, sodium 122, potassium 3.4, bicarb 18, anion gap 20, creatinine 5.94, lactic acid 3.9, magnesium 0.9, total bili 1.8, AST 110, ALT 53, ALP 105, troponin 0.102. Respiratory viral panel negative. Chest x-ray shows multifocal pneumonia right lower lobe greater than left. EKG shows sinus tachycardia with right bundle you block. Pelvic x-ray shows no acute process. Head CT shows no acute process. Pulmonology, nephrolo gy, cardiology consulted. Respiratory function progressively worsening despite being on broad-spectrum antibiotics. Patient is was subsequently intubated, on vasopressors. Troponin mildly elevated 0.102, 0.116, 0.132. Cardiology consulted, Echo EF 50-55% with no regional wall motion abnormalities, likely Type II [place]. Right femoral HD catheter inserted 09/19, daily HD ordered by Nephrology. He underwent bronchoscopy with lavage on 09/19 with significant purulence noted in the RLL. Legionella Ag +, maintained on Cefepime and Levaquin. Vasopressin and Levophed weaned off 09/20. Noted to be agitated on max dose of Fentanyl and Propofol, tachycardic and hypertensive, started on Ativan and CIWA protocol. 09/22 Patient was seen and examined. Intubated. Currently on Fentanyl and Propofol. Antibiotics include Levaquin and Cefepime. Receiving intermitted ativan per CIWA protocol. Tmax 101.4F this morning. CBC WBC 16.1 Hg 9.2 Hct 27. ABG pH 7.35, pCO2 48. CMP Na 132, Cl 95, BUN 77, Cr 6.24, glu 186, Ca 7.1, AST 67, ALT 101, alk phos 137, alb 2.7. CXR shows persistent bilateral infiltrates. Nephrology note reviewed, HD today and tomorrow, 80 mg IV Lasix. General: Intubated Derm: warm, dry Head: atraumatic, normocephalic, symmetric Eyes: no lid lag, normal sclera Mouth: no lip lesion, mucus membranes moist Cardiovascular: Normal S1 S2 tachycardic. No murmurs, rubs, gallops Lungs: Coarse BS BL, no accessory muscle use Ext: no gross muscle atrophy, trace LE edema, no contractures Neuro: Intubated Psych: Intubated Based on my assessment of this patient, this patient meets a high complexity level of care. Acute hypoxic respiratory failure due to below Septic shock due to Legionella pneumonia: Levofloxacin 500 mg IV Q48H started 09/19 and Cefepime 1g IV QD. Vancomycin and Azithromycin discontinued. Levophed titrated to maintain MAP > 65. Telemetry monitoring. Follow BAL and Blood cultur es. Pulmonary on board. ID on board. Likely EtOH withdrawal: Ativan PRN per CIWA scale. Consider dexmedetomidine if continues to be agitated. Troponin elevation, Type II [place]: Plavix 75 mg PO QD. Metoprolol 25 mg PO BID. Acute kidney injury: Hold Lisinopril-HCTZ. HD catheter inserted 09/19. Plans for daily HD. Nephrology on board. Hyponatremia: Likely related to severe dehydration and Legionella. Hypocalcemia: Status post 1g Ca gluconate 09/19. Corrected Ca today 7.4. Tums 500 mg PO TID. Transaminitis: Abd US intermediate legion in the right hepatic lobe, MRI recommended. CBD within normal limits. Normocytic anemia: Stable. no signs of active bleeding. Monitor. Chronic conditions: Hypertension now hypotensive Dyslipidemia Smoker CODE STATUS: FULL CODE DVT Prophylaxis: Heparin SQ GI Prophylaxis: Protonix IV Designated medical POA if patient is not able to make medical decisions for themselves: I have reviewed the following bridal stylist sales consultant notes: Pulmonary, Cardiology, Nephrology. I have reviewed the results of the following tests: CBC. CMP. ABG I have ordered the following tests: Daily CBC and CMP. I have discussed the care of this patient with the following independent historian: RN I have independently interpreted the following test below: CXR I have discussed the management of this patient with the following physician: Objective - Vital Signs Vital signs: Vital Signs Temp 101.4 F H 09/23/23 05:00 Pulse 103 H 09/23/23 08:35 Resp 18 09/23/23 07:00 BP 143/85 09/23/23 07:00 Pulse Ox 94 L 09/23/23 07:00 FiO2 60 09/23/23 07:53 Intake & Output 09/22/23 09/23/23 09/23/23 18:59 06:59 18:59 Intake Total 4437.015 1298.970 54 Output Total 3094 136 10 Balance -1313.023 927.970 44 Weight 99.4 kg Intake: IV 206 156 13 0.9 NS 120 120 10 A line 0 CVP 36 36 3 Cefepime 1 gm In Sodium 50 Chloride 0.9% 50 ml @ 12. 5 mls/hr IVPB DAILY DANNA Rx#:[id number] Intake, IV Titration 522.977 415.970 Amount fentaNYL (PF). 1,000 mcg 196.782 100 In Sodium Chloride 0.9% 80 ml @ 0.5 MCG/KG/HR 4. 196 mls/hr IV .[id number] DANNA Rx#:[id number] propofoL 1,000 mg In 326.195 315.970 Empty Bag 1 bag @ 15 MCG/ KG/MIN 7.552 mls/hr IV . [id number] DANNA Rx#:[id number] Tube Feeding 492 492 41 Hemodialysis 500 Other 60 Output: Urine 94 136 10 Hemodialysis 3000 Other: Voiding Method Indwelling Catheter Indwelling Catheter # Bowel Movements 0 ABP, PAP, CO, CI - Last Documented Arterial Blood Pressure 92/87 - Labs CBC & Chem 7: 09/23/23 05:22 09/23/23 05:22 Labs: Abnormal Lab Results - Last 24 Hours (Table) 09/22/23 09/22/23 09/22/23 Range/Units 04:10 04:10 11:27 WBC (3.8-10.6) k/uL RBC (4.30-5.90) m/uL Hgb (13.0-17.5) gm/dL Hct (39.0-53.0) % RDW (11.5-15.5) % ABG pCO2 (35-45) mmHg ABG pO2 (83-108) mmHg ABG HCO3 (21-25) mmol/L ABG Total CO2 (19-24) mmol/L Sodium (137-145) mmol/L Chloride (98-107) mmol/L BUN (9-20) mg/dL Creatinine (0.66-1.25) mg/dL Glucose (74-99) mg/dL POC Glucose (mg/dL) 229 H (70-110) mg/dL Calcium (8.4-10.2) mg/dL Phosphorus 6.3 H (2.5-4.5) mg/dL AST (17-59) U/L ALT (4-49) U/L Alkaline Phosphatase (38-126) U/L Total Protein (6.3-8.2) g/dL Total Protein (PEP) 4.8 L (6.2-8.2) g/dL Albumin (3.5-5.0) g/dL 09/22/23 09/23/23 09/23/23 Range/Units 17:07 00:49 05:22 WBC 16.1 H (3.8-10.6) k/uL RBC 2.81 L (4.30-5.90) m/uL Hgb 9.2 L (13.0-17.5) gm/dL Hct 27.0 L (39.0-53.0) % RDW 15.6 H (11.5-15.5) % ABG pCO2 (35-45) mmHg ABG pO2 (83-108) mmHg ABG HCO3 (21-25) mmol/L ABG Total CO2 (19-24) mmol/L Sodium (137-145) mmol/L Chloride (98-107) mmol/L BUN (9-20) mg/dL Creatinine (0.66-1.25) mg/dL Glucose (74-99) mg/dL POC Glucose (mg/dL) 201 H 207 H (70-110) mg/dL Calcium (8.4-10.2) mg/dL Phosphorus (2.5-4.5) mg/dL AST (17-59) U/L ALT (4-49) U/L Alkaline Phosphatase (38-126) U/L Total Protein (6.3-8.2) g/dL Total Protein (PEP) (6.2-8.2) g/dL Albumin (3.5-5.0) g/dL 09/23/23 09/23/23 09/23/23 Range/Units 05:22 05:23 05:35 WBC (3.8-10.6) k/uL RBC (4.30-5.90) m/uL Hgb (13.0-17.5) gm/dL Hct (39.0-53.0) % RDW (11.5-15.5) % ABG pCO2 48 H (35-45) mmHg ABG pO2 82 L (83-108) mmHg ABG HCO3 27 H (21-25) mmol/L ABG Total CO2 28 H (19-24) mmol/L Sodium 132 L (137-145) mmol/L Chloride 95 L (98-107) mmol/L BUN 77 H (9-20) mg/dL Creatinine 6.24 H (0.66-1.25) mg/dL Glucose 186 H (74-99) mg/dL POC Glucose (mg/dL) 199 H (70-110) mg/dL Calcium 7.1 L (8.4-10.2) mg/dL Phosphorus (2.5-4.5) mg/dL AST 67 H (17-59) U/L ALT 101 H (4-49) U/L Alkaline Phosphatase 137 H (38-126) U/L Total Protein 5.2 L (6.3-8.2) g/dL Total Protein (PEP) (6.2-8.2) g/dL Albumin 2.7 L (3.5-5.0) g/dL Microbiology - Last 24 Hours (Table) 09/18/23 13:50 Blood Culture - Preliminary Blood 09/20/23 11:03 Gram Stain - Preliminary Bronchoalviolar Lavage - Right Bronchial Washings Culture - Preliminary Farzana albicans
[2023-09-23 12:12] LABS: Glucose,Whole Blood 173 mg/dL (70-110)
[2023-09-23] MEDS: CALCIUM ACETATE 667 MG TAB PO SCH (12:34)
--- NOTE | 2023-09-23 13:03 | P.PN ---
Subjective Progress Note Date: 09/23/23 Patient is a 58-year-old white male with past medical history significant for hypertension, hyperlipidemia, nonocclusive coronary artery disease, and current everyday smoker. I am seeing this patient in the emergency room, after he presented yesterday afternoon with a chief complaint of generalized weakness, fall, shortness of breath and a productive cough. Patient states that starting Tuesday he developed a productive cough with yellow to green sputum. He progressively became more short of breath over the following days. Denies chest pain or hemoptysis. He noticed that he started developing fevers 2 nights ago. He has progressively become more weak. He has had reduced appetite and has not been drinking many oral fluids. He has been having nausea without vomiting. He had a fall yesterday. Denies hitting his head. He states that he more so lowered himself to the floor. States that he should have came in sooner. He is currently sitting in bed, on 3 L/min nasal cannula, he appears dyspneic. He is tachypneic with accessory muscle use. He was noted to be febrile on arrival with a Tmax of 103.3 F, which has been treated with Tylenol.. Chest x-ray demonstrates bilateral infiltrates, greater on the right mid and lower lobes. CBC on arrival demonstrates some leukocytosis with a WBC count of 21.2, otherwise unremarkable. BMP from yesterday has multiple electrolyte abnormalities including: Sodium 123, potassium 3.3, chloride 90, serum bicarb 14, BUN 53, creatinine 6.05, glucose 97. Lactic acid level was elevated at 3.9 and is down to 1.6. Magnesium level 0.9. LFTs mildly elevated. Total bili 1.8. Troponins elevated at 0.102, 0.116, and 0.132 respectively. Negative for influenza, RSV, COVID. Patient has been covered on broad-spectrum antibiotics including vancomycin, Zosyn, and azithromycin. Patient's current respiratory status is labile. On today's evaluation of 09/20/2023, the patient is being seen for a follow-up. Currently, the patient intubated on mechanical ventilator and sedated and paralyzed. This morning, the patient is on a propofol running at 30 mcg/kg/min and the patient is also on fentanyl at 0.3 mcg/kg/h. The patient is on Nimbex at 1 mcg/kg/min. While being on the mechanical ventilator, the patient assist- control mode at a rate of 30, tidal volume of 400, FiO2 is at 90% with a PEEP of 12. Urine output is in order of 20 to 30 cc an hour. Patient remains on norepinephrine running at 0.25 mcg/kg/min and the patient is also on physiologic dose of vasopressin. While on the mechanical ventilator, the peak airway pressure is around 20, CVP is at 16. The patient was resuscitated with IV fluids and the fluid balance is +4.6 L over the past 24 hours. The blood gas shows a pH of 7.2 with a pCO2 of 45 and a pO2 of 86. Chest x-ray is consistent with bilateral pneumonia. The white cell count today is at 26.8 with a hemoglobin of 11 and a platelet count of 225. Sodium is at 123, potassium level is at 4.2, serum bicarb is at 15, BUN is at 7 6. Creatinine 6.85. The patient total calcium level is at 5.9 and the corrected calcium level is at 7.1. Phosphorus level is at 9.8. LFTs show an bilirubin of 1.2, AST of 420, ALT of 200. The patient remains on a combination of antibiotics including IV cefepime, vancomycin and Zithromax. I performed a bronchoscopy endobronchial lavage of the right lower lobe. There was purulent respiratory secretions the right lung base that was suctioned out without any major difficulties. Blood cultures are negative thus far. The patient was also started on enteral feeding for nutritio nal support. Abdominal ultrasound showed normal common bile duct, normal kidneys without evidence of any hydronephrosis. Will on today's evaluation of 09/21/2023, the patient remains intubated on [facility] ventilator. Diagnosed having the Legionella pneumonia and urine antigen was positive. Bronchoscopy was done and the bronchial lavage results are still pending for now. This morning, the patient is on propofol running at 45 mcg/kg/min and the patient is also on fentanyl at 0.5 mcg/kg/h and Nimbex at 2 mcg/kg. Minutes. IV fluids are currently at KVO. Pressors have been off since midnight. The patient is hemodynamically stable. Underwent hemodialysis yesterday with a total of 2 L of ultrafiltration. Another session is in progress this morning. Remains on mechanical ventilator on assist-control mode and the patient is at rate of 30, tidal volume 400, FiO2 of 80% with a PEEP of 15. Blood gas showed pH of 7.42 with a pCO2 of 56 and pO2 of 101. Chest x-ray shows bilateral pulmonary consolidation consistent with pneumonia. Peak airway pressure is around 28. Patient is currently on Nepro at rate of 20 cc an hour. The white cell count of 25.8, hemoglobin 10.7 and a platelet count of 235. Blood gases was noted. Sodium levels at 129, potassium is at 4.2 with a BUN of 69 and creatinine of 6. LFTs are still mildly elevated. Vancomycin was discontinued. Zithromax was discontinued and the patient was started on Levaquin 500 mg every 48 hours. IV cefepime was maintained. 09/23/2023, the patient is being seen in a follow-up. He remains intubated on the mechanical ventilator. This morning, the patient on propofol at 25 mcg/kg/min and fentanyl at 2 mcg/kg/h. He is on assist-control mode of mechanical ventilation at rate of 30, tidal volume of 400, FiO2 50% with a PEEP of 15. Blood gas showed a pH of 7.35 with a pCO2 of 48 and pO2 of 82. The patient is on assist-control mode of mechanical ventilation. The blood gas from todayShows a pH of 7.35 with a pCO2 of 48 and pO2 of 72. Chest x-ray shows no major interval change and the patient continues to have bilateral pulmonary infiltrates and consolidations. The patient remains on cefepime and Levaquin. Note that the patient has been off paralytics for the past 48 hours. He grimaces to painful stimulation. He withdraws to painful stimulation in all 4 extremities. Fluid balance is -300 cc over the past 24 hours. IV fluids ordered for normal saline at rate of 10. Urine output is noted of 10 cc an hour. The patient is undergoing daily hemodialysis. Last hemodialysis session was yesterday a total of 2.5 L of fluid was removed. The patient remains on Nepro at rate of 41 cc an hour. The WBC count is at 16 with a hemoglobin 9.8 and a platelet count of 311. BUN is 77 with a creatinine of 6.2 and a sodium levels at 132 with a potassium level of 4. LFTs continue to improve. Afebrile. Hemodynamically stable on no pressors. No other significant events overnight. Objective - Vital Signs Vital signs: Vital Signs Temp 101.4 F H 09/23/23 05:00 Pulse 103 H 09/23/23 08:35 Resp 18 09/23/23 07:00 BP 143/85 09/23/23 07:00 Pulse Ox 94 L 09/23/23 07:00 FiO2 60 09/23/23 07:53 Intake & Output 09/22/23 09/23/23 09/23/23 18:59 06:59 18:59 Intake Total 9896.848 5325.970 54 Output Total 3094 136 10 Balance -1313.023 927.970 44 Weight 99.4 kg Intake: IV 206 156 13 0.9 NS 120 120 10 A line 0 CVP 36 36 3 Cefepime 1 gm In Sodium 50 Chloride 0.9% 50 ml @ 12. 5 mls/hr IVPB DAILY DANNA Rx#:[id number] Intake, IV Titration 522.977 415.970 Amount fentaNYL (PF). 1,000 mcg 196.782 100 In Sodium Chloride 0.9% 80 ml @ 0.5 MCG/KG/HR 4. 196 mls/hr IV .[id number] DANNA Rx#:[id number] propofoL 1,000 mg In 326.195 315.970 Empty Bag 1 bag @ 15 MCG/ KG/MIN 7.552 mls/hr IV . [id number] DANNA Rx#:[id number] Tube Feeding 492 492 41 Hemodialysis 500 Other 60 Output: Urine 94 136 10 Hemodialysis 3000 Other: Voiding Method Indwelling Catheter Indwelling Catheter # Bowel Movements 0 ABP, PAP, CO, CI - Last Documented Arterial Blood Pressure 92/87 - Exam GENERAL EXAM: Alert, 58-year-old white male, intubated, sedated and paralyzed. The patient has an orogastric and orotracheal tube are both in place. HEAD: Normocephalic and atraumatic EYES: Normal reaction of pupils, equal size. NOSE: Clear with pink turbinates. THROAT: No erythema or exudates. NECK: No masses, no JVD. CHEST: No chest wall deformity. LUNGS: Equal air entry with diffuse rhonchi and expiratory wheezing with bibasilar inspiratory crackles. CVS: S1 and S2 normal with no audible murmur, regular rhythm. No extra heart sounds ABDOMEN: No hepatosplenomegaly, active bowel sounds, no guarding or rigidity. SPINE: No scoliosis or deformity SKIN: No rashes CENTRAL NERVOUS SYSTEM: the patient is sedated and paralyzed at this point in time. Pupils are equal reactive to light. EXTREMITIES: There is no peripheral edema, clubbing, or cyanosis. Peripheral pulses are intact. - Labs CBC & Chem 7: 09/23/23 05:22 09/23/23 05:22 Labs: Abnormal Lab Results - Last 24 Hours (Table) 09/22/23 09/22/23 09/22/23 Range/Units 04:10 04:10 11:27 WBC (3.8-10.6) k/uL RBC (4.30-5.90) m/uL Hgb (13.0-17.5) gm/dL Hct (39.0-53.0) % RDW (11.5-15.5) % ABG pCO2 (35-45) mmHg ABG pO2 (83-108) mmHg ABG HCO3 (21-25) mmol/L ABG Total CO2 (19-24) mmol/L Sodium (137-145) mmol/L Chloride (98-107) mmol/L BUN (9-20) mg/dL Creatinine (0.66-1.25) mg/dL Glucose (74-99) mg/dL POC Glucose (mg/dL) 229 H (70-110) mg/dL Calcium (8.4-10.2) mg/dL Phosphorus 6.3 H (2.5-4.5) mg/dL AST (17-59) U/L ALT (4-49) U/L Alkaline Phosphatase (38-126) U/L Total Protein (6.3-8.2) g/dL Total Protein (PEP) 4.8 L (6.2-8.2) g/dL Albumin (3.5-5.0) g/dL 09/22/23 09/23/23 09/23/23 Range/Units 17:07 00:49 05:22 WBC 16.1 H (3.8-10.6) k/uL RBC 2.81 L (4.30-5.90) m/uL Hgb 9.2 L (13.0-17.5) gm/dL Hct 27.0 L (39.0-53.0) % RDW 15.6 H (11.5-15.5) % ABG pCO2 (35-45) mmHg ABG pO2 (83-108) mmHg ABG HCO3 (21-25) mmol/L ABG Total CO2 (19-24) mmol/L Sodium (137-145) mmol/L Chloride (98-107) mmol/L BUN (9-20) mg/dL Creatinine (0.66-1.25) mg/dL Glucose (74-99) mg/dL POC Glucose (mg/dL) 201 H 207 H (70-110) mg/dL Calcium (8.4-10.2) mg/dL Phosphorus (2.5-4.5) mg/dL AST (17-59) U/L ALT (4-49) U/L Alkaline Phosphatase (38-126) U/L Total Protein (6.3-8.2) g/dL Total Protein (PEP) (6.2-8.2) g/dL Albumin (3.5-5.0) g/dL 09/23/23 09/23/23 09/23/23 Range/Units 05:22 05:23 05:35 WBC (3.8-10.6) k/uL RBC (4.30-5.90) m/uL Hgb (13.0-17.5) gm/dL Hct (39.0-53.0) % RDW (11.5-15.5) % ABG pCO2 48 H (35-45) mmHg ABG pO2 82 L (83-108) mmHg ABG HCO3 27 H (21-25) mmol/L ABG Total CO2 28 H (19-24) mmol/L Sodium 132 L (137-145) mmol/L Chloride 95 L (98-107) mmol/L BUN 77 H (9-20) mg/dL Creatinine 6.24 H (0.66-1.25) mg/dL Glucose 186 H (74-99) mg/dL POC Glucose (mg/dL) 199 H (70-110) mg/dL Calcium 7.1 L (8.4-10.2) mg/dL Phosphorus (2.5-4.5) mg/dL AST 67 H (17-59) U/L ALT 101 H (4-49) U/L Alkaline Phosphatase 137 H (38-126) U/L Total Protein 5.2 L (6.3-8.2) g/dL Total Protein (PEP) (6.2-8.2) g/dL Albumin 2.7 L (3.5-5.0) g/dL Microbiology - Last 24 Hours (Table) 09/18/23 13:50 Blood Culture - Preliminary Blood 09/20/23 11:03 Gram Stain - Preliminary Bronchoalviolar Lavage - Right Bronchial Washings Culture - Preliminary Farzana albicans Assessment and Plan Assessment: Acute hypoxic respiratory failure secondary to Legionella pneumonia and the patient has bilateral multilobar pneumonia, the patient is currently intubated on mechanical ventilator. Intubation was performed on 09/19/2023. Bronchoscopy endobronchial lavage of the right lower lobe was done. The Legionella urine antigen was positive and the patient remains on Levaquin and cefepime for now. He remains intubated on mechanical ventilator. The patient is currently off paralytics. Adequate oxygenation and ventilation. Chest x-ray findings remain unchanged. Shock, likely septic in nature, improved and the patient is currently off pressors. Acute COPD exacerbation secondary to above Severe dehydration at time of admission and the patient has been medically resuscitated IV fluids. Multiple electrolyte abnormalities including hyponatremia, hypokalemia, severe hypomagnesemia, which are being replaced Acute kidney injury, likely secondary to severe dehydration, sepsis, and acute tubular necrosis. No evidence of any hydronephrosis. The patient has diminished urine output and the creatinine remains elevated. Nephrology is on the case and the patient is undergoing daily hemodialysis, last session was yesterday and another session of hemodialysis to be done today. Electrolytes are all stable. Urine output is noted of 10 cc an hour, Mild transaminitis, secondary to sepsis, improving Elevated troponins, likely supply/demand mismatch History of hypertension History of hyperlipidemia History of coronary artery disease Current everyday smoker, with a 30 to 40 pack year history Plan Keep the patient sedated with a combination of propofol and fentanyl and the patient is currently off paralytics. Continue vent support and no ventilator changes for today Bronchoscopy was performed endobronchial lavage of the right lower lobe, results are negative for now Continue Levaquin and cefepime. Did hemodialysis Currently off pressors including norepinephrine and vasopressin Continue bronchodilators with DuoNeb updrafts [id number] Continue with same antibiotic coverage includes IV cefepime and Levaquin with appropriate dose adjustments Continue Solu-Medrol Continue enteral feeding for nutritional support, currently on Nepro IV fluids to KVO Will continue to follow make further recommendations based on the progress. Condition is critical. Family has been updated. This evaluation was done more than 30 minutes. Case is being discussed and coordinated with the various consultants involved in the care of this patient. This evaluation was done more than 30 minutes. Time with Patient: Greater than 30
--- NOTE | 2023-09-23 13:05 | P.PN ---
Subjective Progress Note Date: 09/22/23 Principal diagnosis: Reason for follow-up is pneumonia and sepsis Patient is a 58-year-old male with a past medical history significant for hypertension [place] current everyday smoker presenting to the hospital for evaluation of increasing shortness of breath patient got intubated because of worsening respiratory status was noted to be septic secondary to pneumonia with evidence of right middle lobe infiltrate and urine for Legionella antigen came back positive. On today's evaluation that is 09/22/2023, Patient did have a low-grade fever of 100.5 at 4 AM the patient is afebrile since then patient remains to be intubated on the vent FiO2 at 50% no significant purulent secretion through the ET and the patient not requiring any pressor support. Patient white count is down to 20.9, creatinine is 5.59 Objective - Vital Signs Vital signs: Vital Signs Temp 100.5 F H 09/22/23 04:00 Pulse 101 H 09/22/23 14:30 Resp 31 H 09/22/23 14:30 BP 157/88 09/22/23 14:30 Pulse Ox 92 L 09/22/23 14:30 FiO2 60 09/22/23 12:00 Intake & Output 09/21/23 09/22/23 09/22/23 18:59 06:59 18:59 Intake Total 1531.694 996.139 799.089 Output Total 2603 76 54 Balance -1071.306 920.139 745.089 Weight 97.1 kg Intake: IV 242 167 154 0.9 NS 120 110 80 A line 36 24 0 CVP 36 33 24 Cefepime 1 gm In Sodium 50 50 Chloride 0.9% 50 ml @ 12. 5 mls/hr IVPB DAILY [facility] Rx#:[id number] Intake, IV Titration 389.694 416.139 257.089 Amount Cisatracurium 200 mg In 34.909 Sodium Chloride 0.9% 180 ml @ 1 MCG/KG/MIN 5.035 mls/hr IV .Q24H [facility] Rx#: [id number] fentaNYL (PF). 1,000 mcg 110.283 170.001 100 In Sodium Chloride 0.9% 80 ml @ 0.5 MCG/KG/HR 4. 196 mls/hr IV .[id number] [facility] Rx#:[id number] propofoL 1,000 mg In 244.502 246.138 157.089 Empty Bag 1 bag @ 15 MCG/ KG/MIN 7.552 mls/hr IV . [id number] [facility] Rx#:[id number] Oral 60 Tube Feeding 280 413 328 Hemodialysis 500 Other 60 60 Output: Urine 103 76 54 Hemodialysis 2500 Other: Voiding Method Indwelling Catheter Indwelling Catheter Indwelling Catheter # Bowel Movements 0 ABP, PAP, CO, CI - Last Documented Arterial Blood Pressure 92/87 - Exam GENERAL DESCRIPTION: Middle-age male intubated on the vent RESPIRATORY SYSTEM: Unlabored breathing , decreased breath sounds at bases HEART: S1 S2 regular rate and rhythm , ABDOMEN: Soft , no tenderness EXTREMITIES: No edema feet - Labs CBC & Chem 7: 10/07/23 06:56 10/07/23 06:56 Labs: Abnormal Lab Results - Last 24 Hours (Table) 09/21/23 09/21/23 09/22/23 Range/Units 16:54 23:31 04:10 WBC 20.9 H (3.8-10.6) k/uL RBC 2.78 L (4.30-5.90) m/uL Hgb 9.4 L (13.0-17.5) gm/dL Hct 26.6 L (39.0-53.0) % RDW 15.6 H (11.5-15.5) % ABG pH (7.35-7.45) ABG pCO2 (35-45) mmHg ABG pO2 (83-108) mmHg ABG HCO3 (21-25) mmol/L ABG Total CO2 (19-24) mmol/L ABG O2 Saturation (94-97) % Sodium (137-145) mmol/L Chloride (98-107) mmol/L BUN (9-20) mg/dL Creatinine (0.66-1.25) mg/dL Glucose (74-99) mg/dL POC Glucose (mg/dL) 224 H 201 H (70-110) mg/dL Calcium (8.4-10.2) mg/dL Phosphorus (2.5-4.5) mg/dL AST (17-59) U/L ALT (4-49) U/L Alkaline Phosphatase (38-126) U/L Total Protein (6.3-8.2) g/dL Albumin (3.5-5.0) g/dL 09/22/23 09/22/23 09/22/23 Range/Units 04:10 04:10 05:10 WBC (3.8-10.6) k/uL RBC (4.30-5.90) m/uL Hgb (13.0-17.5) gm/dL Hct (39.0-53.0) % RDW (11.5-15.5) % ABG pH (7.35-7.45) ABG pCO2 (35-45) mmHg ABG pO2 (83-108) mmHg ABG HCO3 (21-25) mmol/L ABG Total CO2 (19-24) mmol/L ABG O2 Saturation (94-97) % Sodium 130 L (137-145) mmol/L Chloride 96 L (98-107) mmol/L BUN 69 H (9-20) mg/dL Creatinine 5.59 H (0.66-1.25) mg/dL Glucose 190 H (74-99) mg/dL POC Glucose (mg/dL) 214 H (70-110) mg/dL Calcium 6.7 L (8.4-10.2) mg/dL Phosphorus 6.3 H (2.5-4.5) mg/dL AST 117 H (17-59) U/L ALT 123 H (4-49) U/L Alkaline Phosphatase 152 H (38-126) U/L Total Protein 4.8 L (6.3-8.2) g/dL Albumin 2.5 L (3.5-5.0) g/dL 09/22/23 09/22/23 Range/Units 06:18 11:27 WBC (3.8-10.6) k/uL RBC (4.30-5.90) m/uL Hgb (13.0-17.5) gm/dL Hct (39.0-53.0) % RDW (11.5-15.5) % ABG pH 7.33 L (7.35-7.45) ABG pCO2 49 H (35-45) mmHg ABG pO2 70 L (83-108) mmHg ABG HCO3 26 H (21-25) mmol/L ABG Total CO2 27 H (19-24) mmol/L ABG O2 Saturation 93.7 L (94-97) % Sodium (137-145) mmol/L Chloride (98-107) mmol/L BUN (9-20) mg/dL Creatinine (0.66-1.25) mg/dL Glucose (74-99) mg/dL POC Glucose (mg/dL) 229 H (70-110) mg/dL Calcium (8.4-10.2) mg/dL Phosphorus (2.5-4.5) mg/dL AST (17-59) U/L ALT (4-49) U/L Alkaline Phosphatase (38-126) U/L Total Protein (6.3-8.2) g/dL Albumin (3.5-5.0) g/dL Microbiology - Last 24 Hours (Table) 09/20/23 11:03 Gram Stain - Preliminary Bronchoalviolar Lavage - Right Bronchial Washings Culture - Preliminary Farzana albicans 09/18/23 13:35 Blood Culture - Preliminary Blood 09/18/23 13:50 Blood Culture - Preliminary Blood 09/20/23 11:03 Acid Fast Bacilli Smear - Preliminary Bronchoalviolar Lavage - Right 09/19/23 22:45 Gram Stain - Preliminary Sputum Sputum Culture - Preliminary Farzana albicans Assessment and Plan (1) Legionella pneumonia Current Visit: Yes Status: Acute Code(s): A48.1 - LEGIONNAIRES' DISEASE SNOMED Code(s): 157500956 (2) Pneumonia Current Visit: Yes Status: Acute Code(s): J18.9 - PNEUMONIA, UNSPECIFIED ORGANISM SNOMED Code(s): 503686275 (3) Sepsis Current Visit: Yes Status: Acute Code(s): A41.9 - SEPSIS, UNSPECIFIED ORGANISM SNOMED Code(s): 90824346 Plan: 1patient presented hospital with sepsis in this patient who did have fever tachycardia elevated white count, in this patient with evidence of pneumonia and urine tested positive for Legionella antigen more likely etiology of the sepsis and pneumonia 2 patient currently covered with the Levaquin and cefepime while waiting for the blood culture to be finalized and monitor clinical course closely Dictation was produced using [facility] dictation software. please excuse any grammatical, word or spelling errors. Time with Patient: Less than 30
--- NOTE | 2023-09-23 13:06 | P.PN ---
Subjective Progress Note Date: 09/23/23 Principal diagnosis: Reason for follow-up is pneumonia and sepsis Patient is a 58-year-old male with a past medical history significant for hypertension [place] current everyday smoker presenting to the hospital for evaluation of increasing shortness of breath patient got intubated because of worsening respiratory status was noted to be septic secondary to pneumonia with evidence of right middle lobe infiltrate and urine for Legionella antigen came back positive. On today's evaluation that is 09/23/2023, patient has been febrile as he did spike a fever of 101.4 F at 5 AM and a low-grade fever at noon patient remains to be debated on the vent FiO2 is currently stable at 50% no significant purulent secretions through the ET, or diarrhea has been reported the patient is undergoing dialysis without any issues. Patient white count is down to 16.1, creatinine 6.24 blood culture positive for Streptococcus patient is without any resistant pattern Objective - Vital Signs Vital signs: Vital Signs Temp 100.7 F H 09/23/23 12:00 Pulse 104 H 09/23/23 12:00 Resp 30 H 09/23/23 12:00 BP 138/73 09/23/23 12:00 Pulse Ox 94 L 09/23/23 12:00 FiO2 50 09/23/23 12:00 Intake & Output 09/22/23 09/23/23 09/23/23 18:59 06:59 18:59 Intake Total 7561.043 2067.970 394.048 Output Total 3094 136 70 Balance -1313.023 927.970 324.048 Weight 99.4 kg Intake: IV 206 156 118 0.9 NS 120 120 50 A line 0 CVP 36 36 18 Cefepime 1 gm In Sodium 50 50 Chloride 0.9% 50 ml @ 12. 5 mls/hr IVPB DAILY [facility] Rx#:[id number] Intake, IV Titration 522.977 415.970 235.048 Amount fentaNYL (PF). 1,000 mcg 196.782 100 67.412 In Sodium Chloride 0.9% 80 ml @ 0.5 MCG/KG/HR 4. 196 mls/hr IV .[id number] [facility] Rx#:[id number] propofoL 1,000 mg In 326.195 315.970 167.636 Empty Bag 1 bag @ 15 MCG/ KG/MIN 7.552 mls/hr IV . [id number] [facility] Rx#:[id number] Tube Feeding 492 492 41 Hemodialysis 500 Other 60 Output: Urine 94 136 70 Hemodialysis 3000 Other: Voiding Method Indwelling Catheter Indwelling Catheter Indwelling Catheter # Bowel Movements 0 ABP, PAP, CO, CI - Last Documented Arterial Blood Pressure 92/87 - Exam GENERAL DESCRIPTION: Middle-age male intubated on the vent RESPIRATORY SYSTEM: Unlabored breathing , decreased breath sounds at bases HEART: S1 S2 regular rate and rhythm , ABDOMEN: Soft , no tenderness EXTREMITIES: No edema feet - Labs CBC & Chem 7: 09/23/23 05:22 09/23/23 05:22 Labs: Abnormal Lab Results - Last 24 Hours (Table) 09/22/23 09/22/23 09/22/23 Range/Units 04:10 04:10 17:07 WBC (3.8-10.6) k/uL RBC (4.30-5.90) m/uL Hgb (13.0-17.5) gm/dL Hct (39.0-53.0) % RDW (11.5-15.5) % ABG pCO2 (35-45) mmHg ABG pO2 (83-108) mmHg ABG HCO3 (21-25) mmol/L ABG Total CO2 (19-24) mmol/L Sodium (137-145) mmol/L Chloride (98-107) mmol/L BUN (9-20) mg/dL Creatinine (0.66-1.25) mg/dL Glucose (74-99) mg/dL POC Glucose (mg/dL) 201 H (70-110) mg/dL Calcium (8.4-10.2) mg/dL Phosphorus 6.3 H (2.5-4.5) mg/dL AST (17-59) U/L ALT (4-49) U/L Alkaline Phosphatase (38-126) U/L Total Protein (6.3-8.2) g/dL Total Protein (PEP) 4.8 L (6.2-8.2) g/dL Albumin (3.5-5.0) g/dL 09/23/23 09/23/23 09/23/23 Range/Units 00:49 05:22 05:22 WBC 16.1 H (3.8-10.6) k/uL RBC 2.81 L (4.30-5.90) m/uL Hgb 9.2 L (13.0-17.5) gm/dL Hct 27.0 L (39.0-53.0) % RDW 15.6 H (11.5-15.5) % ABG pCO2 (35-45) mmHg ABG pO2 (83-108) mmHg ABG HCO3 (21-25) mmol/L ABG Total CO2 (19-24) mmol/L Sodium 132 L (137-145) mmol/L Chloride 95 L (98-107) mmol/L BUN 77 H (9-20) mg/dL Creatinine 6.24 H (0.66-1.25) mg/dL Glucose 186 H (74-99) mg/dL POC Glucose (mg/dL) 207 H (70-110) mg/dL Calcium 7.1 L (8.4-10.2) mg/dL Phosphorus (2.5-4.5) mg/dL AST 67 H (17-59) U/L ALT 101 H (4-49) U/L Alkaline Phosphatase 137 H (38-126) U/L Total Protein 5.2 L (6.3-8.2) g/dL Total Protein (PEP) (6.2-8.2) g/dL Albumin 2.7 L (3.5-5.0) g/dL 09/23/23 09/23/23 09/23/23 Range/Units 05:23 05:35 12:11 WBC (3.8-10.6) k/uL RBC (4.30-5.90) m/uL Hgb (13.0-17.5) gm/dL Hct (39.0-53.0) % RDW (11.5-15.5) % ABG pCO2 48 H (35-45) mmHg ABG pO2 82 L (83-108) mmHg ABG HCO3 27 H (21-25) mmol/L ABG Total CO2 28 H (19-24) mmol/L Sodium (137-145) mmol/L Chloride (98-107) mmol/L BUN (9-20) mg/dL Creatinine (0.66-1.25) mg/dL Glucose (74-99) mg/dL POC Glucose (mg/dL) 199 H 173 H (70-110) mg/dL Calcium (8.4-10.2) mg/dL Phosphorus (2.5-4.5) mg/dL AST (17-59) U/L ALT (4-49) U/L Alkaline Phosphatase (38-126) U/L Total Protein (6.3-8.2) g/dL Total Protein (PEP) (6.2-8.2) g/dL Albumin (3.5-5.0) g/dL Microbiology - Last 24 Hours (Table) 09/18/23 13:50 Blood Culture Gram Stain - Preliminary Blood Blood Culture - Preliminary Molecular ID 09/20/23 11:03 Gram Stain - Final Bronchoalviolar Lavage - Right Bronchial Washings Culture - Final Farzana albicans 09/19/23 22:45 Gram Stain - Final Sputum Sputum Culture - Final Farzana albicans Assessment and Plan (1) Legionella pneumonia Current Visit: Yes Status: Acute Code(s): A48.1 - LEGIONNAIRES' DISEASE SNOMED Code(s): 235676010 (2) Bacteremia Current Visit: Yes Status: Acute Code(s): R78.81 - BACTEREMIA SNOMED Code(s): 9966262 (3) Pneumonia Current Visit: Yes Status: Acute Code(s): J18.9 - PNEUMONIA, UNSPECIFIED ORGANISM SNOMED Code(s): 685692980 Plan: 1patient presented hospital with sepsis in this patient who did have fever tachycardia elevated white count, in this patient with evidence of pneumonia and urine tested positive for Legionella antigen more likely etiology of the sepsis and pneumonia 2 patient did have a positive blood culture with a strep species possible related to pneumonia no resistant gene reported by the pharmacy 3-we will repeat a blood culture document clearance of his bacteremia continue with the Levaquin however discontinue cefepime start the patient on Rocephin 2 g daily Dictation was produced using [employer] dictation software. please excuse any grammatical, word or spelling errors. Time with Patient: Greater than 30
[2023-09-23 17:49] LABS: Glucose,Whole Blood 181 mg/dL (70-110)
[2023-09-23] MEDS: ZINC OXIDE PASTE (Z-GUARD) 1 APPLIC TOPICAL PRN (18:28)
[2023-09-23] MEDS: FUROSEMIDE 10 MG/ML 10 ML VIAL IV SCH (19:55)
[2023-09-23 20:43] LABS: Albumin 1.91 g/dL (3.80-4.90); Gamma Globulin 0.34 g/dL (0.70-1.50)
[2023-09-23 23:46] LABS: Glucose,Whole Blood 158 mg/dL (70-110)
[2023-09-24 05:48] LABS: HCT 25.8 % (39.0-53.0); HGB 9.3 gm/dL (13.0-17.5); MCH 34.6 pg (25.0-35.0); MCHC 35.9 g/dL (31.0-37.0); MCV 96.5 fL (80.0-100.0); Mean Platelet Volume 8.8; Platelet Count 292 k/uL (150-450); Poikilocytosis Slight; RBC 2.67 m/uL (4.30-5.90); RDW 15.4 % (11.5-15.5); WBC 18.7 k/uL (3.8-10.6)
[2023-09-24 05:59] LABS: Glucose,Whole Blood 147 mg/dL (70-110)
[2023-09-24 06:06] LABS: African American GFR (CKD) 11 (>60 ml/min/1.73 sqM); Anion Gap 14 mmol/L; Blood Urea Nitrogen 80 mg/dL (9-20); Calcium 7.6 mg/dL (8.4-10.2); Carbon Dioxide 23 mmol/L (22-30); Chloride 93 mmol/L (98-107); Glucose 139 mg/dL (74-99); Non-African American GFR(CKD) 10 (>60 ml/min/1.73 sqM); Potassium 4.8 mmol/L (3.5-5.1); Sodium 130 mmol/L (137-145)
[2023-09-24 06:15] LABS: ABG Base Excess 2.4 mmol/L; ABG HCO3 28 mmol/L (21-25); ABG Oxygen Saturation 96.8 % (94-97); ABG PCO2 52 mmHg (35-45); ABG PH 7.34 (7.35-7.45); ABG PO2 88 mmHg (83-108); ABG TCO2 30 mmol/L (19-24); Allen Test Performed? Yes
--- NOTE | 2023-09-24 06:42 | XR ---
EXAMINATION TYPE: XR chest 1V portable DATE OF EXAM: 09/24/2023 COMPARISON: 09/22/2023 HISTORY: Shortness of breath TECHNIQUE: Single frontal view of the chest is obtained. FINDINGS: ET tube is 4.6 cm above the teressa. There is an NG tube within the stomach. There is a left-sided PIC C line tip in the SVC/RA junction unchanged in position. The retrocardiac opacity obscuring the left hemidiaphragm is stable. Likely combination of pleural fl uid and atelectasis/pneumonic infiltrate. The opacity of the right lung has decreased in the interval with small degree airspace opacification persists. IMPRESSION: Acute cardiopulmonary disease which shows mild improvement in the interval particularly better aeration of the right lung.
[2023-09-24 06:48] LABS: Band Neutrophils % 1 %; Eosinophils # (M) 0.19 k/uL (0-0.7); Lymphocytes # (M) 2.06 k/uL (1.0-4.8); Metamyelocytes # (M) 0.37 k/uL (0); Metamyelocytes % 2 %; Monocytes # (M) 0.19 k/uL (0-1.0); Myelocytes # (M) 0.75 k/uL (0); Myelocytes % 4 %; Neutrophils % (M) 81 %; Nucleated Red Blood Cells 0 /100 WBC (0-0); Total Cells Counted 200
[2023-09-24 07:00] LABS: Tear Drop Cells Present
--- NOTE | 2023-09-24 09:42 | P.PN ---
Subjective Patient is seen in follow-up for acute kidney injury. Started on hemodialysis September 20, 2023. Tolerated 3 L ultrafiltration yesterday. Intubated. Off vasopressors. Remains oliguric. Tolerating dialysis well. Vital signs are stable. General: Resting in bed. HEENT: Intubated. LUNGS: Scattered rhonchi. HEART: Rate and Rhythm are regular. ABDOMEN: No distention. EXTREMITITES: 1+ edema. Objective - Vital Signs Vital signs: Vital Signs Temp 99.5 F 09/24/23 04:00 Pulse 90 09/24/23 08:36 Resp 30 H 09/24/23 07:00 BP 134/78 09/24/23 07:00 Pulse Ox 95 09/24/23 07:00 FiO2 50 09/24/23 09:29 Intake & Output 09/23/23 09/24/23 09/24/23 18:59 06:59 18:59 Intake Total 1189.138 954.360 116.636 Output Total 3505 135 5 Balance -2315.862 819.360 111.636 Weight 99.4 kg 96.162 kg Intake: IV 196 156 13 0.9 NS 110 120 10 CVP 36 36 3 Cefepime 1 gm In Sodium 50 Chloride 0.9% 50 ml @ 12. 5 mls/hr IVPB DAILY [facility] Rx#:[id number] Intake, IV Titration 552.138 576.360 91.636 Amount cefTRIAXone 2 gm In 50 Sodium Chloride 0.9% 50 ml @ 100 mls/hr IVPB Q24HR [facility] Rx#:[id number] fentaNYL (PF). 1,000 mcg 167.412 200 In Sodium Chloride 0.9% 80 ml @ 0.5 MCG/KG/HR 4. 196 mls/hr IV .[id number] [facility] Rx#:[id number] propofoL 1,000 mg In 334.726 376.360 91.636 Empty Bag 1 bag @ 15 MCG/ KG/MIN 7.552 mls/hr IV . [id number] [facility] Rx#:[id number] Tube Feeding 41 132 12 Hemodialysis 400 Other 90 Output: Urine 105 135 5 Hemodialysis 3400 Other: Voiding Method Indwelling Catheter Indwelling Catheter ABP, PAP, CO, CI - Last Documented Arterial Blood Pressure 92/87 - Labs CBC & Chem 7: 09/24/23 05:03 09/24/23 05:03 Labs: Abnormal Lab Results - Last 24 Hours (Table) 09/22/23 09/23/23 09/23/23 Range/Units 04:10 12:11 17:48 WBC (3.8-10.6) k/uL RBC (4.30-5.90) m/uL Hgb (13.0-17.5) gm/dL Hct (39.0-53.0) % Neutrophils # (Manual) (1.3-7.7) k/uL Metamyelocytes # (Man) (0) k/uL Myelocytes # (Manual) (0) k/uL ABG pH (7.35-7.45) ABG pCO2 (35-45) mmHg ABG HCO3 (21-25) mmol/L ABG Total CO2 (19-24) mmol/L Sodium (137-145) mmol/L Chloride (98-107) mmol/L BUN (9-20) mg/dL Creatinine (0.66-1.25) mg/dL Glucose (74-99) mg/dL POC Glucose (mg/dL) 173 H 181 H (70-110) mg/dL Calcium (8.4-10.2) mg/dL Albumin (PEP) 1.91 L (3.80-4.90) g/dL Mhkib-1-Stdpzcyxv 0.67 H (0.10-0.40) g/dL Jssuu-8-Vnczwaolz 1.23 H (0.60-1.00) g/dL Gamma Globulins 0.34 L (0.70-1.50) g/dL 09/23/23 09/24/23 09/24/23 Range/Units 23:45 05:03 05:03 WBC 18.7 H (3.8-10.6) k/uL RBC 2.67 L (4.30-5.90) m/uL Hgb 9.3 L (13.0-17.5) gm/dL Hct 25.8 L (39.0-53.0) % Neutrophils # (Manual) 15.30 H (1.3-7.7) k/uL Metamyelocytes # (Man) 0.37 H (0) k/uL Myelocytes # (Manual) 0.75 H (0) k/uL ABG pH (7.35-7.45) ABG pCO2 (35-45) mmHg ABG HCO3 (21-25) mmol/L ABG Total CO2 (19-24) mmol/L Sodium 130 L (137-145) mmol/L Chloride 93 L (98-107) mmol/L BUN 80 H (9-20) mg/dL Creatinine 5.77 H (0.66-1.25) mg/dL Glucose 139 H (74-99) mg/dL POC Glucose (mg/dL) 158 H (70-110) mg/dL Calcium 7.6 L (8.4-10.2) mg/dL Albumin (PEP) (3.80-4.90) g/dL Ekygf-1-Kgbhtrish (0.10-0.40) g/dL Gkcxn-4-Sjfulppll (0.60-1.00) g/dL Gamma Globulins (0.70-1.50) g/dL 09/24/23 09/24/23 Range/Units 05:57 06:08 WBC (3.8-10.6) k/uL RBC (4.30-5.90) m/uL Hgb (13.0-17.5) gm/dL Hct (39.0-53.0) % Neutrophils # (Manual) (1.3-7.7) k/uL Metamyelocytes # (Man) (0) k/uL Myelocytes # (Manual) (0) k/uL ABG pH 7.34 L (7.35-7.45) ABG pCO2 52 H (35-45) mmHg ABG HCO3 28 H (21-25) mmol/L ABG Total CO2 30 H (19-24) mmol/L Sodium (137-145) mmol/L Chloride (98-107) mmol/L BUN (9-20) mg/dL Creatinine (0.66-1.25) mg/dL Glucose (74-99) mg/dL POC Glucose (mg/dL) 147 H (70-110) mg/dL Calcium (8.4-10.2) mg/dL Albumin (PEP) (3.80-4.90) g/dL Isfcj-5-Uddugzlxl (0.10-0.40) g/dL Whnhm-7-Cuydhfwud (0.60-1.00) g/dL Gamma Globulins (0.70-1.50) g/dL Microbiology - Last 24 Hours (Table) 09/18/23 13:35 Blood Culture - Final Blood 09/20/23 11:03 Fungal Culture - Preliminary Bronchoalviolar Lavage - Right Farzana albicans 09/18/23 13:50 Blood Culture Gram Stain - Preliminary Blood Blood Culture - Preliminary Molecular ID 09/20/23 11:03 Gram Stain - Final Bronchoalviolar Lavage - Right Bronchial Washings Culture - Final Farzana albicans 09/19/23 22:45 Gram Stain - Final Sputum Sputum Culture - Final Farzana albicans Assessment and Plan Plan: Assessment: 1. Acute kidney injury secondary to ATN secondary to septic shock. Creatinine 0.8-0.9 in March 2023. This admission creatinine was near 6 with no improvement. Oliguric. Started on hemodialysis September 20, 2023. Has right femoral catheter. No hydronephrosis noted on imaging. 2. Septic shock secondary to pneumonia maintained on antibiotics. Urine Legionella antigen positive. 3. Acute hypoxic respiratory failure. On 50% FiO2. 4. Hypervolemic hyponatremia. 5. Volume overload. Improving with ultrafiltration. 6. Metabolic acidosis secondary to acute kidney injury. Improved. 7. Hyperphosphatemia secondary to acute kidney injury. On PhosLo. Plan: Currently seen while undergoing hemodialysis. Wean FiO2. Avoid nephrotoxins. Monitor for renal recovery. Maintain IV Lasix. Follow-up pending serologies. Negative so far. Add Aranesp.
[2023-09-24 11:57] LABS: Glucose,Whole Blood 134 mg/dL (70-110)
--- NOTE | 2023-09-24 12:36 | P.PN ---
Subjective Progress Note Date: 09/24/23 Hospital Course: 58-year-old male with history of hypertension, dyslipidemia, coronary artery d isease presenting with shortness of breath. In the ED, temperature was 103.3, pulse 131, respiratory rate 30, blood pressure 118/86, saturating 88% on room air. WBC 21.2, hemoglobin 13, pH 7.41, pCO2 33, sodium 122, potassium 3.4, bicarb 18, anion gap 20, creatinine 5.94, lactic acid 3.9, magnesium 0.9, total bili 1.8, AST 110, ALT 53, ALP 105, troponin 0.102. Respiratory viral panel negative. Chest x-ray shows multifocal pneumonia right lower lobe greater than left. EKG shows sinus tachycardia with right bundle you block. Pelvic x-ray shows no acute process. Head CT shows no acute process. Pulmonology, nephrology, cardiology consulted. Respiratory function progressively worsening despite being on broad-spectrum antibiotics. Patient is was subsequently intubated, on vasopressors. Troponin mildly elevated 0.102, 0.116, 0.132. Cardiology consulted, Echo EF 50-55% with no regional wall motion abnormalities, likely Type II MA. Right femoral HD catheter inserted 09/19, daily HD ordered by Nephrology. He underwent bronchoscopy with lavage on 09/19 with significant purulence noted in the RLL. Legionella Ag +, maintained on ceftriaxone and Levaquin. Vasopressin and Levophed weaned off 09/20. Remains sedated. Still on mechanical ventilated. Continue to be on dialysis. Subjective: Seen and examined at bedside. No acute events overnight. Remains intubated. No pressors. On propofol and fentanyl for sedation. Minimal urine output. Had 1 bowel movement yesterday. On hemodialysis. Pertinent positives and negatives as discussed above, a complete review of systems was performed and all other systems are negative. Vitals Signs Reviewed. General: Intubated sedated Derm: Warm, dry Head: Atraumatic, normocephalic, symmetric Eyes: Pupils equal and reactive Mouth: No lip lesion, mucus membranes moist Cardiovascular: S1S2 reg, no murmur Lungs: Bilateral rhonchi, no accessory muscle use, mechanically ventilated Abdominal: Soft, nondistended, no guarding, no appreciable organomegaly Ext: No gross muscle atrophy, no edema, no contractures Neuro: Sedated Psych: Unable to assess Data Reviewed Today: Pertinent Labs: WBC 18.7, hemoglobin 9.3, pH 7.34, pCO2 52, sodium 130, bicarb 93, creatinine 5.77, blood sugars range between 1 34-1 58 Imaging: Chest x-ray independently interpreted, shows persistent bilateral multifocal opacities, improving compared to yesterday Assessment and Plan: Acute hypoxic respiratory failure Septic shock due to Legionella pneumonia Strep viridans bacteremia -Continue ceftriaxone 2 g IV every 24 hours, levofloxacin 500 IV every 48 hours -Continue DuoNeb every 4 hours, Solu-Medrol 60 every 6 hours IV, monitor blood sugars, on sliding scale insulin -ID following -BAL positive for Farzana albicans -Pulmonology managing vent settings -Off of vasopressors -Consider further sedation holiday, continue to wean sedation Acute kidney injury, on hemodialysis Hyperphosphatemia Microcytic anemia Hypertension Hypervolemic hyponatremia Hypocalcemia -Continue to hold lisinopril and hydrochlorothiazide -Nephrology note reviewed, maintain IV Lasix 80 daily, maintain hemodialysis, continue PhosLo 3 times daily, darbepoetin weekly -On hydralazine 50 3 times daily, IV hydralazine as needed -Repeat BMP, CBC tomorrow -Also on calcium carbonate 500 3 times daily Likely EtOH withdrawal -Ativan PRN per CIWA scale Troponin elevation, Type II MA History of CAD -Plavix 75 mg PO QD. Metoprolol 25 mg PO BID. -Restarted on atorvastatin 80 daily Transaminitis -Abd US intermediate legion in the right hepatic lobe, MRI recommended. CBD within normal limits. DVT ppx: Subcu heparin Code status: Full code Anticipated discharge place: Pending clinical course Anticipated discharge time: Pending clinical course Objective - Vital Signs Vital signs: Vital Signs Temp 98.7 F 09/24/23 08:00 Pulse 88 09/24/23 11:50 Resp 30 H 09/24/23 10:00 BP 131/75 09/24/23 10:00 Pulse Ox 96 09/24/23 10:00 FiO2 50 09/24/23 11:50 Intake & Output 09/23/23 09/24/23 09/24/23 18:59 06:59 18:59 Intake Total 1189.138 954.360 386.544 Output Total 3505 135 40 Balance -2315.862 819.360 346.544 Weight 99.4 kg 96.162 kg Intake: IV 196 156 52 0.9 NS 110 120 40 CVP 36 36 12 Cefepime 1 gm In Sodium 50 Chloride 0.9% 50 ml @ 12. 5 mls/hr IVPB DAILY [facility] Rx#:[id number] Intake, IV Titration 552.138 576.360 286.544 Amount cefTRIAXone 2 gm In 50 Sodium Chloride 0.9% 50 ml @ 100 mls/hr IVPB Q24HR [facility] Rx#:[id number] fentaNYL (PF). 1,000 mcg 167.412 200 100 In Sodium Chloride 0.9% 80 ml @ 0.5 MCG/KG/HR 4. 196 mls/hr IV .[id number] [facility] Rx#:[id number] propofoL 1,000 mg In 334.726 376.360 186.544 Empty Bag 1 bag @ 15 MCG/ KG/MIN 7.552 mls/hr IV . [id number] DANNA Rx#:[id number] Tube Feeding 41 132 48 Hemodialysis 400 Other 90 Output: Urine 105 135 40 Hemodialysis 3400 Other: Voiding Method Indwelling Catheter Indwelling Catheter ABP, PAP, CO, CI - Last Documented Arterial Blood Pressure 92/87 - Labs CBC & Chem 7: 09/24/23 05:03 09/24/23 05:03 Labs: Abnormal Lab Results - Last 24 Hours (Table) 09/22/23 09/23/23 09/23/23 Range/Units 04:10 17:48 23:45 WBC (3.8-10.6) k/uL RBC (4.30-5.90) m/uL Hgb (13.0-17.5) gm/dL Hct (39.0-53.0) % Neutrophils # (Manual) (1.3-7.7) k/uL Metamyelocytes # (Man) (0) k/uL Myelocytes # (Manual) (0) k/uL ABG pH (7.35-7.45) ABG pCO2 (35-45) mmHg ABG HCO3 (21-25) mmol/L ABG Total CO2 (19-24) mmol/L Sodium (137-145) mmol/L Chloride (98-107) mmol/L BUN (9-20) mg/dL Creatinine (0.66-1.25) mg/dL Glucose (74-99) mg/dL POC Glucose (mg/dL) 181 H 158 H (70-110) mg/dL Calcium (8.4-10.2) mg/dL Albumin (PEP) 1.91 L (3.80-4.90) g/dL Xmxwi-3-Ruyonzcmu 0.67 H (0.10-0.40) g/dL Hfcrk-2-Hlrbcexaa 1.23 H (0.60-1.00) g/dL Gamma Globulins 0.34 L (0.70-1.50) g/dL 09/24/23 09/24/23 09/24/23 Range/Units 05:03 05:03 05:57 WBC 18.7 H (3.8-10.6) k/uL RBC 2.67 L (4.30-5.90) m/uL Hgb 9.3 L (13.0-17.5) gm/dL Hct 25.8 L (39.0-53.0) % Neutrophils # (Manual) 15.30 H (1.3-7.7) k/uL Metamyelocytes # (Man) 0.37 H (0) k/uL Myelocytes # (Manual) 0.75 H (0) k/uL ABG pH (7.35-7.45) ABG pCO2 (35-45) mmHg ABG HCO3 (21-25) mmol/L ABG Total CO2 (19-24) mmol/L Sodium 130 L (137-145) mmol/L Chloride 93 L (98-107) mmol/L BUN 80 H (9-20) mg/dL Creatinine 5.77 H (0.66-1.25) mg/dL Glucose 139 H (74-99) mg/dL POC Glucose (mg/dL) 147 H (70-110) mg/dL Calcium 7.6 L (8.4-10.2) mg/dL Albumin (PEP) (3.80-4.90) g/dL Emjtt-0-Jezfpgiyx (0.10-0.40) g/dL Sjqxj-0-Zyqcrhxew (0.60-1.00) g/dL Gamma Globulins (0.70-1.50) g/dL 09/24/23 09/24/23 Range/Units 06:08 11:55 WBC (3.8-10.6) k/uL RBC (4.30-5.90) m/uL Hgb (13.0-17.5) gm/dL Hct (39.0-53.0) % Neutrophils # (Manual) (1.3-7.7) k/uL Metamyelocytes # (Man) (0) k/uL Myelocytes # (Manual) (0) k/uL ABG pH 7.34 L (7.35-7.45) ABG pCO2 52 H (35-45) mmHg ABG HCO3 28 H (21-25) mmol/L ABG Total CO2 30 H (19-24) mmol/L Sodium (137-145) mmol/L Chloride (98-107) mmol/L BUN (9-20) mg/dL Creatinine (0.66-1.25) mg/dL Glucose (74-99) mg/dL POC Glucose (mg/dL) 134 H (70-110) mg/dL Calcium (8.4-10.2) mg/dL Albumin (PEP) (3.80-4.90) g/dL Byjrs-4-Amfqtotcs (0.10-0.40) g/dL Ovxpb-1-Fuzabapnq (0.60-1.00) g/dL Gamma Globulins (0.70-1.50) g/dL Microbiology - Last 24 Hours (Table) 09/18/23 13:50 Blood Culture Gram Stain - Final Blood Blood Culture - Final Streptococcus viridans group Molecular ID 09/18/23 13:35 Blood Culture - Final Blood 09/20/23 11:03 Fungal Culture - Preliminary Bronchoalviolar Lavage - Right Farzana albicans 09/20/23 11:03 Gram Stain - Final Bronchoalviolar Lavage - Right Bronchial Washings Culture - Final Farzana albicans 09/19/23 22:45 Gram Stain - Final Sputum Sputum Culture - Final Farzana albicans
--- NOTE | 2023-09-24 12:44 | P.PN ---
Subjective Progress Note Date: 09/24/23 Patient is a 58-year-old white male with past medical history significant for hypertension, hyperlipidemia, nonocclusive coronary artery disease, and current everyday smoker. I am seeing this patient in the emergency room, after he presented yesterday afternoon with a chief complaint of generalized weakness, fall, shortness of breath and a productive cough. Patient states that starting Tuesday he developed a productive cough with yellow to green sputum. He progressively became more short of breath over the following days. Denies chest pain or hemoptysis. He noticed that he started developing fevers 2 nights ago. He has progressively become more weak. He has had reduced appetite and has not been drinking many oral fluids. He has been having nausea without vomiting. He had a fall yesterday. Denies hitting his head. He states that he more so lowered himself to the floor. States that he should have came in sooner. He is currently sitting in bed, on 3 L/min nasal cannula, he appears dyspneic. He is tachypneic with accessory muscle use. He was noted to be febrile on arrival with a Tmax of 103.3 F, which has been treated with Tylenol.. Chest x-ray demonstrates bilateral infiltrates, greater on the right mid and lower lobes. CBC on arrival demonstrates some leukocytosis with a WBC count of 21.2, otherwise unremarkable. BMP from yesterday has multiple electrolyte abnormalities including: Sodium 123, potassium 3.3, chloride 90, serum bicarb 14, BUN 53, creatinine 6.05, glucose 97. Lactic acid level was elevated at 3.9 and is down to 1.6. Magnesium level 0.9. LFTs mildly elevated. Total bili 1.8. Troponins elevated at 0.102, 0.116, and 0.132 respectively. Negative for influenza, RSV, COVID. Patient has been covered on broad-spectrum antibiotics including vancomycin, Zosyn, and azithromycin. Patient's current respiratory status is labile. On today's evaluation of 09/20/2023, the patient is being seen for a follow-up. Currently, the patient intubated on mechanical ventilator and sedated and paralyzed. This morning, the patient is on a propofol running at 30 mcg/kg/min and the patient is also on fentanyl at 0.3 mcg/kg/h. The patient is on Nimbex at 1 mcg/kg/min. While being on the mechanical ventilator, the patient assist- control mode at a rate of 30, tidal volume of 400, FiO2 is at 90% with a PEEP of 12. Urine output is in order of 20 to 30 cc an hour. Patient remains on norepinephrine running at 0.25 mcg/kg/min and the patient is also on physiologic dose of vasopressin. While on the mechanical ventilator, the peak airway pressure is around 20, CVP is at 16. The patient was resuscitated with IV fluids and the fluid balance is +4.6 L over the past 24 hours. The blood gas shows a pH of 7.2 with a pCO2 of 45 and a pO2 of 86. Chest x-ray is consistent with bilateral pneumonia. The white cell count today is at 26.8 with a hemoglobin of 11 and a platelet count of 225. Sodium is at 123, potassium level is at 4.2, serum bicarb is at 15, BUN is at 7 6. Creatinine 6.85. The patient total calcium level is at 5.9 and the corrected calcium level is at 7.1. Phosphorus level is at 9.8. LFTs show an bilirubin of 1.2, AST of 420, ALT of 200. The patient remains on a combination of antibiotics including IV cefepime, vancomycin and Zithromax. I performed a bronchoscopy endobronchial lavage of the right lower lobe. There was purulent respiratory secretions the right lung base that was suctioned out without any major difficulties. Blood cultures are negative thus far. The patient was also started on enteral feeding for nutritio nal support. Abdominal ultrasound showed normal common bile duct, normal kidneys without evidence of any hydronephrosis. Will on today's evaluation of 09/21/2023, the patient remains intubated on [facility] han[facility] ventilator. Diagnosed having the Legionella pneumonia and urine antigen was positive. Bronchoscopy was done and the bronchial lavage results are still pending for now. This morning, the patient is on propofol running at 45 mcg/kg/min and the patient is also on fentanyl at 0.5 mcg/kg/h and Nimbex at 2 mcg/kg. Minutes. IV fluids are currently at KVO. Pressors have been off since midnight. The patient is hemodynamically stable. Underwent hemodialysis yesterday with a total of 2 L of ultrafiltration. Another session is in progress this morning. Remains on mechanical ventilator on assist-control mode and the patient is at rate of 30, tidal volume 400, FiO2 of 80% with a PEEP of 15. Blood gas showed pH of 7.42 with a pCO2 of 56 and pO2 of 101. Chest x-ray shows bilateral pulmonary consolidation consistent with pneumonia. Peak airway pressure is around 28. Patient is currently on Nepro at rate of 20 cc an hour. The white cell count of 25.8, hemoglobin 10.7 and a platelet count of 235. Blood gases was noted. Sodium levels at 129, potassium is at 4.2 with a BUN of 69 and creatinine of 6. LFTs are still mildly elevated. Vancomycin was discontinued. Zithromax was discontinued and the patient was started on Levaquin 500 mg every 48 hours. IV cefepime was maintained. 09/23/2023, the patient is being seen in a follow-up. He remains intubated on the mechanical ventilator. This morning, the patient on propofol at 25 mcg/kg/min and fentanyl at 2 mcg/kg/h. He is on assist-control mode of mechanical ventilation at rate of 30, tidal volume of 400, FiO2 50% with a PEEP of 15. Blood gas showed a pH of 7.35 with a pCO2 of 48 and pO2 of 82. The patient is on assist-control mode of mechanical ventilation. The blood gas from todayShows a pH of 7.35 with a pCO2 of 48 and pO2 of 72. Chest x-ray shows no major interval change and the patient continues to have bilateral pulmonary infiltrates and consolidations. The patient remains on cefepime and Levaquin. Note that the patient has been off paralytics for the past 48 hours. He grimaces to painful stimulation. He withdraws to painful stimulation in all 4 extremities. Fluid balance is -300 cc over the past 24 hours. IV fluids ordered for normal saline at rate of 10. Urine output is noted of 10 cc an hour. The patient is undergoing daily hemodialysis. Last hemodialysis session was yesterday a total of 2.5 L of fluid was removed. The patient remains on Nepro at rate of 41 cc an hour. The WBC count is at 16 with a hemoglobin 9.8 and a platelet count of 311. BUN is 77 with a creatinine of 6.2 and a sodium levels at 132 with a potassium level of 4. LFTs continue to improve. Afebrile. Hemodynamically stable on no pressors. No other significant events overnight. On 09/24/2023, the patient is being seen for a follow-up. He is intubated and mechanically ventilated. This morning, he is on a combination of propofol and fentanyl. Propofol is running at 65 mcg and fentanyl is at 2 mcg. He is on assist-control mode of mechanical ventilation at rate of 30, tidal volume of 400, FiO2 of 50% with a PEEP of 15. Blood gases showed pH of 7.34 with a pCO2 of 52 and pO2 of 88. The peak airway pressure is 30, static airway pressure is 28 and the chest x-ray findings are essentially unchanged. Remains on Nepro at 12 cc an hour. Urine output is in the order of 10 to 15 cc and the patient is undergoing daily hemodialysis. He is currently undergoing hemodialysis. He is hemodynamically stable on no pressors. He is afebrile. He is on Rocephin and Levaquin. He is also on IV Solu-Medrol and bronchodilators. No major changes in his condition. Objective - Vital Signs Vital signs: Vital Signs Temp 99.5 F 09/24/23 04:00 Pulse 90 09/24/23 08:36 Resp 30 H 09/24/23 07:00 BP 134/78 09/24/23 07:00 Pulse Ox 95 09/24/23 07:00 FiO2 50 09/24/23 09:29 Intake & Output 09/23/23 09/24/23 09/24/23 18:59 06:59 18:59 Intake Total 1189.138 954.360 116.636 Output Total 3505 135 5 Balance -2315.862 819.360 111.636 Weight 99.4 kg 96.162 kg Intake: IV 196 156 13 0.9 NS 110 120 10 CVP 36 36 3 Cefepime 1 gm In Sodium 50 Chloride 0.9% 50 ml @ 12. 5 mls/hr IVPB DAILY [facility]ANNA Rx#:[id number] Intake, IV Titration 552.138 576.360 91.636 Amount cefTRIAXone 2 gm In 50 Sodium Chloride 0.9% 50 ml @ 100 mls/hr IVPB Q24HR [facility] Rx#:[id number] fentaNYL (PF). 1,000 mcg 167.412 200 In Sodium Chloride 0.9% 80 ml @ 0.5 MCG/KG/HR 4. 196 mls/hr IV .[id number] [facility] Rx#:[id number] propofoL 1,000 mg In 334.726 376.360 91.636 Empty Bag 1 bag @ 15 MCG/ KG/MIN 7.552 mls/hr IV . [id number] DAN[facility] Rx#:[id number] Tube Feeding 41 132 12 Hemodialysis 400 Other 90 Output: Urine 105 135 5 Hemodialysis 3400 Other: Voiding Method Indwelling Catheter Indwelling Catheter ABP, PAP, CO, CI - Last Documented Arterial Blood Pressure 92/87 - Exam GENERAL EXAM: Alert, 58-year-old white male, intubated, sedated and paralyzed. The patient has an orogastric and orotracheal tube are both in place. HEAD: Normocephalic and atraumatic EYES: Normal reaction of pupils, equal size. NOSE: Clear with pink turbinates. THROAT: No erythema or exudates. NECK: No masses, no JVD. CHEST: No chest wall deformity. LUNGS: Equal air entry with diffuse rhonchi and expiratory wheezing with bibasilar inspiratory crackles. CVS: S1 and S2 normal with no audible murmur, regular rhythm. No extra heart sounds ABDOMEN: No hepatosplenomegaly, active bowel sounds, no guarding or rigidity. SPINE: No scoliosis or deformity SKIN: No rashes CENTRAL NERVOUS SYSTEM: the patient is sedated and paralyzed at this point in time. Pupils are equal reactive to light. EXTREMITIES: There is no peripheral edema, clubbing, or cyanosis. Peripheral pulses are intact. - Labs CBC & Chem 7: 09/24/23 05:03 09/24/23 05:03 Labs: Abnormal Lab Results - Last 24 Hours (Table) 09/22/23 09/23/23 09/23/23 Range/Units 04:10 12:11 17:48 WBC (3.8-10.6) k/uL RBC (4.30-5.90) m/uL Hgb (13.0-17.5) gm/dL Hct (39.0-53.0) % Neutrophils # (Manual) (1.3-7.7) k/uL Metamyelocytes # (Man) (0) k/uL Myelocytes # (Manual) (0) k/uL ABG pH (7.35-7.45) ABG pCO2 (35-45) mmHg ABG HCO3 (21-25) mmol/L ABG Total CO2 (19-24) mmol/L Sodium (137-145) mmol/L Chloride (98-107) mmol/L BUN (9-20) mg/dL Creatinine (0.66-1.25) mg/dL Glucose (74-99) mg/dL POC Glucose (mg/dL) 173 H 181 H (70-110) mg/dL Calcium (8.4-10.2) mg/dL Albumin (PEP) 1.91 L (3.80-4.90) g/dL Atdge-8-Kpyaophtq 0.67 H (0.10-0.40) g/dL Urhij-5-Vdjittmei 1.23 H (0.60-1.00) g/dL Gamma Globulins 0.34 L (0.70-1.50) g/dL 09/23/23 09/24/23 09/24/23 Range/Units 23:45 05:03 05:03 WBC 18.7 H (3.8-10.6) k/uL RBC 2.67 L (4.30-5.90) m/uL Hgb 9.3 L (13.0-17.5) gm/dL Hct 25.8 L (39.0-53.0) % Neutrophils # (Manual) 15.30 H (1.3-7.7) k/uL Metamyelocytes # (Man) 0.37 H (0) k/uL Myelocytes # (Manual) 0.75 H (0) k/uL ABG pH (7.35-7.45) ABG pCO2 (35-45) mmHg ABG HCO3 (21-25) mmol/L ABG Total CO2 (19-24) mmol/L Sodium 130 L (137-145) mmol/L Chloride 93 L (98-107) mmol/L BUN 80 H (9-20) mg/dL Creatinine 5.77 H (0.66-1.25) mg/dL Glucose 139 H (74-99) mg/dL POC Glucose (mg/dL) 158 H (70-110) mg/dL Calcium 7.6 L (8.4-10.2) mg/dL Albumin (PEP) (3.80-4.90) g/dL Flrnl-9-Wyydsfyne (0.10-0.40) g/dL Klsxm-0-Yxmictpvo (0.60-1.00) g/dL Gamma Globulins (0.70-1.50) g/dL 09/24/23 09/24/23 Range/Units 05:57 06:08 WBC (3.8-10.6) k/uL RBC (4.30-5.90) m/uL Hgb (13.0-17.5) gm/dL Hct (39.0-53.0) % Neutrophils # (Manual) (1.3-7.7) k/uL Metamyelocytes # (Man) (0) k/uL Myelocytes # (Manual) (0) k/uL ABG pH 7.34 L (7.35-7.45) ABG pCO2 52 H (35-45) mmHg ABG HCO3 28 H (21-25) mmol/L ABG Total CO2 30 H (19-24) mmol/L Sodium (137-145) mmol/L Chloride (98-107) mmol/L BUN (9-20) mg/dL Creatinine (0.66-1.25) mg/dL Glucose (74-99) mg/dL POC Glucose (mg/dL) 147 H (70-110) mg/dL Calcium (8.4-10.2) mg/dL Albumin (PEP) (3.80-4.90) g/dL Hxttk-7-Ywxibggoq (0.10-0.40) g/dL Mtufe-5-Qxhlhijsp (0.60-1.00) g/dL Gamma Globulins (0.70-1.50) g/dL Microbiology - Last 24 Hours (Table) 09/18/23 13:35 Blood Culture - Final Blood 09/20/23 11:03 Fungal Culture - Preliminary Bronchoalviolar Lavage - Right Farzana albicans 09/18/23 13:50 Blood Culture Gram Stain - Preliminary Blood Blood Culture - Preliminary Molecular ID 09/20/23 11:03 Gram Stain - Final Bronchoalviolar Lavage - Right Bronchial Washings Culture - Final Farzana albicans 09/19/23 22:45 Gram Stain - Final Sputum Sputum Culture - Final Farzana albicans Assessment and Plan Assessment: Acute hypoxic respiratory failure secondary to Legionella pneumonia and the patient has bilateral multilobar pneumonia, the patient is currently intubated on mechanical ventilator. Intubation was performed on 09/19/2023. Bronchoscopy endobronchial lavage of the right lower lobe was done. The Legionella urine antigen was positive and the patient remains on Levaquin and cefepime for now. He remains intubated on mechanical ventilator. The patient is currently off paralytics. Adequate oxygenation and ventilation. Chest x-ray findings remain unchanged. Shock, likely septic in nature, improved and the patient is currently off pressors. Acute COPD exacerbation secondary to above Severe dehydration at time of admission and the patient has been medically resuscitated IV fluids. Multiple electrolyte abnormalities including hyponatremia, hypokalemia, severe hypomagnesemia, which are being replaced Acute kidney injury, likely secondary to severe dehydration, sepsis, and acute tubular necrosis. No evidence of any hydronephrosis. The patient has diminished urine output and the creatinine remains elevated. Nephrology is on the case and the patient is undergoing daily hemodialysis, Electrolytes are all stable. Urine output is noted of 10 cc an hour, Mild transaminitis, secondary to sepsis, improving Elevated troponins, likely supply/demand mismatch History of hypertension History of hyperlipidemia History of coronary artery disease Current everyday smoker, with a 30 to 40 pack year history Plan Keep the patient sedated with a combination of propofol and fentanyl and the patient is currently off paralytics. Continue vent support and will drop the PEEP down to 14 and FiO2 down to 40% Bronchoscopy was performed endobronchial lavage of the right lower lobe, results are negative for now. It showed some Farzana which is essentially a colonizer. Continue Levaquin and Rocephin Daily hemodialysis Currently off pressors including norepinephrine and vasopressin Continue bronchodilators with DuoNeb updrafts [id number]-[id number] Continue Solu-Medrol Continue enteral feeding for nutritional support, currently on Nepro IV fluids to KVO Will continue to follow make further recommendations based on the progress. Condition is critical. Family has been updated. This evaluation was done more than 30 minutes. Case is being discussed and coordinated with the various consultants involved in the care of this patient. This evaluation was done more than 30 minutes. Time with Patient: Greater than 30
--- NOTE | 2023-09-24 13:06 | P.PN ---
Subjective Progress Note Date: 09/24/23 Principal diagnosis: Reason for follow-up is pneumonia and sepsis Patient is a 58-year-old male with a past medical history significant for hypertension NM current everyday smoker presenting to the hospital for evaluation of increasing shortness of breath patient got intubated because of worsening respiratory status was noted to be septic secondary to pneumonia with evidence of right middle lobe infiltrate and urine for Legionella antigen came back positive. On today's evaluation that is 09/24/2023,the patient did have improvement in his fever pattern with low-grade fever 100 F at midnight the patient is afebrile this morning patient is hemodynamically stable not requiring any pressor support the patient remains to be debated on the vent FiO2 of 50% currently undergoing dialysis without any issues the patient has been tolerating his tube feeds and no diarrhea has been reported by the nursing staff Patient white count is 18.7 creatinine is 5.77 blood culture repeat currently pending initial blood culture with Streptococcus viridans Objective - Vital Signs Vital signs: Vital Signs Temp 98.7 F 09/24/23 08:00 Pulse 88 09/24/23 11:50 Resp 30 H 09/24/23 10:00 BP 131/75 09/24/23 10:00 Pulse Ox 96 09/24/23 10:00 FiO2 50 09/24/23 11:50 Intake & Output 09/23/23 09/24/23 09/24/23 18:59 06:59 18:59 Intake Total 1189.138 954.360 286.544 Output Total 3505 135 40 Balance -2315.862 819.360 246.544 Weight 99.4 kg 96.162 kg Intake: IV 196 156 52 0.9 NS 110 120 40 CVP 36 36 12 Cefepime 1 gm In Sodium 50 Chloride 0.9% 50 ml @ 12. 5 mls/hr IVPB DAILY [facility] Rx#:[id number] Intake, IV Titration 552.138 576.360 186.544 Amount cefTRIAXone 2 gm In 50 Sodium Chloride 0.9% 50 ml @ 100 mls/hr IVPB Q24HR D[facility] Rx#:[id number] fentaNYL (PF). 1,000 mcg 167.412 200 In Sodium Chloride 0.9% 80 ml @ 0.5 MCG/KG/HR 4. 196 mls/hr IV .[id number] DANNA Rx#:[id number] propofoL 1,000 mg In 334.726 376.360 186.544 Empty Bag 1 bag @ 15 MCG/ KG/MIN 7.552 mls/hr IV . [id number] DANNA Rx#:[id number] Tube Feeding 41 132 48 Hemodialysis 400 Other 90 Output: Urine 105 135 40 Hemodialysis 3400 Other: Voiding Method Indwelling Catheter Indwelling Catheter ABP, PAP, CO, CI - Last Documented Arterial Blood Pressure 92/87 - Exam GENERAL DESCRIPTION: Middle-age male intubated on the vent RESPIRATORY SYSTEM: Unlabored breathing , decreased breath sounds at bases HEART: S1 S2 regular rate and rhythm , ABDOMEN: Soft , no tenderness EXTREMITIES: No edema feet - Labs CBC & Chem 7: 09/24/23 05:03 09/24/23 05:03 Labs: Abnormal Lab Results - Last 24 Hours (Table) 09/22/23 09/23/23 09/23/23 Range/Units 04:10 12:11 17:48 WBC (3.8-10.6) k/uL RBC (4.30-5.90) m/uL Hgb (13.0-17.5) gm/dL Hct (39.0-53.0) % Neutrophils # (Manual) (1.3-7.7) k/uL Metamyelocytes # (Man) (0) k/uL Myelocytes # (Manual) (0) k/uL ABG pH (7.35-7.45) ABG pCO2 (35-45) mmHg ABG HCO3 (21-25) mmol/L ABG Total CO2 (19-24) mmol/L Sodium (137-145) mmol/L Chloride (98-107) mmol/L BUN (9-20) mg/dL Creatinine (0.66-1.25) mg/dL Glucose (74-99) mg/dL POC Glucose (mg/dL) 173 H 181 H (70-110) mg/dL Calcium (8.4-10.2) mg/dL Albumin (PEP) 1.91 L (3.80-4.90) g/dL Nzjqf-1-Pjrrgwloy 0.67 H (0.10-0.40) g/dL Hgykr-9-Esfannqiq 1.23 H (0.60-1.00) g/dL Gamma Globulins 0.34 L (0.70-1.50) g/dL 09/23/23 09/24/23 09/24/23 Range/Units 23:45 05:03 05:03 WBC 18.7 H (3.8-10.6) k/uL RBC 2.67 L (4.30-5.90) m/uL Hgb 9.3 L (13.0-17.5) gm/dL Hct 25.8 L (39.0-53.0) % Neutrophils # (Manual) 15.30 H (1.3-7.7) k/uL Metamyelocytes # (Man) 0.37 H (0) k/uL Myelocytes # (Manual) 0.75 H (0) k/uL ABG pH (7.35-7.45) ABG pCO2 (35-45) mmHg ABG HCO3 (21-25) mmol/L ABG Total CO2 (19-24) mmol/L Sodium 130 L (137-145) mmol/L Chloride 93 L (98-107) mmol/L BUN 80 H (9-20) mg/dL Creatinine 5.77 H (0.66-1.25) mg/dL Glucose 139 H (74-99) mg/dL POC Glucose (mg/dL) 158 H (70-110) mg/dL Calcium 7.6 L (8.4-10.2) mg/dL Albumin (PEP) (3.80-4.90) g/dL Pnuvu-1-Iwrcqqleq (0.10-0.40) g/dL Aosid-8-Nuylsphsu (0.60-1.00) g/dL Gamma Globulins (0.70-1.50) g/dL 09/24/23 09/24/23 09/24/23 Range/Units 05:57 06:08 11:55 WBC (3.8-10.6) k/uL RBC (4.30-5.90) m/uL Hgb (13.0-17.5) gm/dL Hct (39.0-53.0) % Neutrophils # (Manual) (1.3-7.7) k/uL Metamyelocytes # (Man) (0) k/uL Myelocytes # (Manual) (0) k/uL ABG pH 7.34 L (7.35-7.45) ABG pCO2 52 H (35-45) mmHg ABG HCO3 28 H (21-25) mmol/L ABG Total CO2 30 H (19-24) mmol/L Sodium (137-145) mmol/L Chloride (98-107) mmol/L BUN (9-20) mg/dL Creatinine (0.66-1.25) mg/dL Glucose (74-99) mg/dL POC Glucose (mg/dL) 147 H 134 H (70-110) mg/dL Calcium (8.4-10.2) mg/dL Albumin (PEP) (3.80-4.90) g/dL Fuzow-1-Seqftdgle (0.10-0.40) g/dL Cmgkr-6-Ywvaflsei (0.60-1.00) g/dL Gamma Globulins (0.70-1.50) g/dL Microbiology - Last 24 Hours (Table) 09/18/23 13:50 Blood Culture Gram Stain - Final Blood Blood Culture - Final Streptococcus viridans group Molecular ID 09/18/23 13:35 Blood Culture - Final Blood 09/20/23 11:03 Fungal Culture - Preliminary Bronchoalviolar Lavage - Right Farzana albicans 09/20/23 11:03 Gram Stain - Final Bronchoalviolar Lavage - Right Bronchial Washings Culture - Final Farzana albicans 09/19/23 22:45 Gram Stain - Final Sputum Sputum Culture - Final Farzana albicans Assessment and Plan (1) Legionella pneumonia Current Visit: Yes Status: Acute Code(s): A48.1 - LEGIONNAIRES' DISEASE SNOMED Code(s): 198672608 (2) Bacteremia Current Visit: Yes Status: Acute Code(s): R78.81 - BACTEREMIA SNOMED C ode(s): 4171502 (3) Pneumonia Current Visit: Yes Status: Acute Code(s): J18.9 - PNEUMONIA, UNSPECIFIED ORGANISM SNOMED Code(s): 570930249 Plan: 1patient presented hospital with sepsis in this patient who did have fever tachycardia elevated white count, in this patient with evidence of pneumonia and urine tested positive for Legionella antigen more likely etiology of the sepsis and pneumonia 2 patient did have a positive blood culture with a strep species which has been finalized as strep viridans possible contamination repeat blood cultures are pending 3-patient to a continue with the Levaquin however discontinue cefepime and Rocephin 2 g daily while waiting for the repeat culture to be finalized Dictation was produced using [employer] dictation software. please excuse any grammatical, word or spelling errors. Time with Patient: Less than 30
[2023-09-24] MEDS: DARBEPOETIN ALFA 40 MCG/0.4 ML SYRINGE SQ SCH (17:52)
[2023-09-24] MEDS: HEPARIN SODIUM,PORCINE 5,000 UNIT/ML 1 ML VIAL SQ SCH (19:43)
[2023-09-24 23:30] LABS: Glucose,Whole Blood 147 mg/dL (70-110)
[2023-09-25 05:32] LABS: Glucose,Whole Blood 162 mg/dL (70-110)
[2023-09-25 05:49] LABS: ABG Base Excess 0.8 mmol/L; ABG HCO3 26 mmol/L (21-25); ABG Oxygen Saturation 97.5 % (94-97); ABG PCO2 42 mmHg (35-45); ABG PH 7.39 (7.35-7.45); ABG PO2 100 mmHg (83-108); ABG TCO2 27 mmol/L (19-24); Allen Test Performed? Yes
[2023-09-25 06:08] LABS: Potassium 4.7 mmol/L (3.5-5.1)
[2023-09-25 06:09] LABS: African American GFR (CKD) 12 (>60 ml/min/1.73 sqM); Anion Gap 14 mmol/L; Blood Urea Nitrogen 88 mg/dL (9-20); Calcium 7.7 mg/dL (8.4-10.2); Carbon Dioxide 23 mmol/L (22-30); Chloride 92 mmol/L (98-107); Glucose 151 mg/dL (74-99); Non-African American GFR(CKD) 10 (>60 ml/min/1.73 sqM); Sodium 129 mmol/L (137-145)
[2023-09-25 06:14] LABS: HCT 28.2 % (39.0-53.0); HGB 9.6 gm/dL (13.0-17.5); MCH 32.7 pg (25.0-35.0); MCHC 34.2 g/dL (31.0-37.0); MCV 95.5 fL (80.0-100.0); Mean Platelet Volume 9.1; Platelet Count 342 k/uL (150-450); RBC 2.95 m/uL (4.30-5.90); RDW 14.8 % (11.5-15.5); WBC 22.1 k/uL (3.8-10.6)
--- NOTE | 2023-09-25 06:19 | XR ---
EXAMINATION TYPE: XR chest 1V portable DATE OF EXAM: 09/25/2023 COMPARISON: 09/24/2023 HISTORY: Shortness of breath TECHNIQUE: Single frontal view of the chest is obtained. FINDINGS: ET tube is 5 cm above the teressa. No change in the NG tube and left-sided PICC line. Right lung opacities have decreased in the interval and mild residual opacities persist. The pulmonar y vasculature appears less congested. There is persistent unchanged left pleural effusion and atelect asis. The heart size is normal. IMPRESSION: Acute cardiopulmonary disease most consistent with CHF. Decreased compared to previous a s described above.
[2023-09-25 07:59] LABS: RBC Morphology Normal
[2023-09-25 08:04] LABS: Band Neutrophils % 4 %; Lymphocytes # (M) 0.66 k/uL (1.0-4.8); Metamyelocytes # (M) 1.11 k/uL (0); Metamyelocytes % 5 %; Monocytes # (M) 0.66 k/uL (0-1.0); Myelocytes # (M) 1.77 k/uL (0); Myelocytes % 8 %; Neutrophils % (M) 79 %; Nucleated Red Blood Cells 0 /100 WBC (0-0); Total Cells Counted 200
[2023-09-25] MEDS: ATORVASTATIN 80 MG TAB PO SCH (08:50)
--- NOTE | 2023-09-25 09:45 | P.PN ---
Subjective Patient is seen in follow-up for acute kidney injury. Started on hemodialysis September 20, 2023. Tolerated 2.6 L ultrafiltration yesterday. Intubated. Off vasopressors. On IV Lasix. Urine output 20 to 30 cc an hour. Vital signs are stable. General: Resting in bed. HEENT: Intubated. LUNGS: Scattered rhonchi. HEART: Rate and Rhythm are regular. ABDOMEN: No distention. EXTREMITITES: 1+ edema. Objective - Vital Signs Vital signs: Vital Signs Temp 98.4 F 09/25/23 04:00 Pulse 88 09/25/23 08:32 Resp 30 H 09/25/23 07:00 BP 158/87 09/25/23 07:00 Pulse Ox 97 09/25/23 07:00 FiO2 50 09/25/23 07:53 Intake & Output 09/24/23 09/25/23 09/25/23 18:59 06:59 18:59 Intake Total 1429.969 814.179 125 Output Total 3090 260 20 Balance -1660.031 554.179 105 Weight 95.073 kg Intake: IV 206 156 13 0.9 NS 120 120 10 CVP 36 36 3 cefTRIAXone 2 gm In 50 Sodium Chloride 0.9% 50 ml @ 100 mls/hr IVPB Q24HR [facility] Rx#:[id number] Intake, IV Titration 579.969 436.179 100 Amount fentaNYL (PF). 1,000 mcg 193.425 200 In Sodium Chloride 0.9% 80 ml @ 0.5 MCG/KG/HR 4. 196 mls/hr IV .[id number] [facility] Rx#:[id number] propofoL 1,000 mg In 386.544 236.179 100 Empty Bag 1 bag @ 15 MCG/ KG/MIN 7.552 mls/hr IV . [id number] [facility] Rx#:[id number] Tube Feeding 144 132 12 Hemodialysis 500 Other 90 Output: Urine 90 260 20 Hemodialysis 3000 Other: Voiding Method Indwelling Catheter Indwelling Catheter ABP, PAP, CO, CI - Last Documented Arterial Blood Pressure 92/87 - Labs CBC & Chem 7: 09/25/23 05:18 09/25/23 05:18 Labs: Abnormal Lab Results - Last 24 Hours (Table) 09/24/23 09/24/23 09/25/23 Range/Units 11:55 23:29 05:18 WBC 22.1 H (3.8-10.6) k/uL RBC 2.95 L (4.30-5.90) m/uL Hgb 9.6 L (13.0-17.5) gm/dL Hct 28.2 L (39.0-53.0) % Neutrophils # (Manual) 18.30 H (1.3-7.7) k/uL Lymphocytes # (Manual) 0.66 L (1.0-4.8) k/uL Metamyelocytes # (Man) 1.11 H (0) k/uL Myelocytes # (Manual) 1.77 H (0) k/uL ABG HCO3 (21-25) mmol/L ABG Total CO2 (19-24) mmol/L ABG O2 Saturation (94-97) % Sodium (137-145) mmol/L Chloride (98-107) mmol/L BUN (9-20) mg/dL Creatinine (0.66-1.25) mg/dL Glucose (74-99) mg/dL POC Glucose (mg/dL) 134 H 147 H (70-110) mg/dL Calcium (8.4-10.2) mg/dL 09/25/23 09/25/23 09/25/23 Range/Units 05:18 05:31 05:40 WBC (3.8-10.6) k/uL RBC (4.30-5.90) m/uL Hgb (13.0-17.5) gm/dL Hct (39.0-53.0) % Neutrophils # (Manual) (1.3-7.7) k/uL Lymphocytes # (Manual) (1.0-4.8) k/uL Metamyelocytes # (Man) (0) k/uL Myelocytes # (Manual) (0) k/uL ABG HCO3 26 H (21-25) mmol/L ABG Total CO2 27 H (19-24) mmol/L ABG O2 Saturation 97.5 H (94-97) % Sodium 129 L (137-145) mmol/L Chloride 92 L (98-107) mmol/L BUN 88 H (9-20) mg/dL Creatinine 5.47 H (0.66-1.25) mg/dL Glucose 151 H (74-99) mg/dL POC Glucose (mg/dL) 162 H (70-110) mg/dL Calcium 7.7 L (8.4-10.2) mg/dL Microbiology - Last 24 Hours (Table) 09/23/23 14:10 Blood Culture - Preliminary Blood 09/18/23 13:50 Blood Culture Gram Stain - Final Blood Blood Culture - Final Streptococcus viridans group Molecular ID Assessment and Plan Plan: Assessment: 1. Acute kidney injury secondary to ATN secondary to septic shock. Creatinine 0.8-0.9 in March 2023. This admission creatinine was near 6 with no improvement. Started on hemodialysis September 20, 2023. Has right femoral catheter. No hydronephrosis noted on imaging. On IV Lasix. Urine output improved to 20 to 30 cc an hour. 2. Septic shock secondary to pneumonia maintained on antibiotics. Urine Legionella antigen positive. 3. Acute hypoxic respiratory failure. On 40% FiO2. 4. Hypervolemic hyponatremia. 5. Volume overload. Improving with ultrafiltration. 6. Metabolic acidosis secondary to acute kidney injury. Improved. 7. Hyperphosphatemia secondary to acute kidney injury. On PhosLo. Plan: Hemodialysis tomorrow. Wean FiO2. Avoid nephrotoxins. Monitor for renal recovery. Maintain IV Lasix. Serologies negative. Maintain Aranesp.
--- NOTE | 2023-09-25 10:12 | P.PN ---
Subjective Progress Note Date: 09/25/23 Patient is a 58-year-old white male with past medical history significant for hypertension, hyperlipidemia, nonocclusive coronary artery disease, and current everyday smoker. I am seeing this patient in the emergency room, after he presented yesterday afternoon with a chief complaint of generalized weakness, fall, shortness of breath and a productive cough. Patient states that starting Tuesday he developed a productive cough with yellow to green sputum. He progressively became more short of breath over the following days. Denies chest pain or hemoptysis. He noticed that he started developing fevers 2 nights ago. He has progressively become more weak. He has had reduced appetite and has not been drinking many oral fluids. He has been having nausea without vomiting. He had a fall yesterday. Denies hitting his head. He states that he more so lowered himself to the floor. States that he should have came in sooner. He is currently sitting in bed, on 3 L/min nasal cannula, he appears dyspneic. He is tachypneic with accessory muscle use. He was noted to be febrile on arrival with a Tmax of 103.3 F, which has been treated with Tylenol.. Chest x-ray demonstrates bilateral infiltrates, greater on the right mid and lower lobes. CBC on arrival demonstrates some leukocytosis with a WBC count of 21.2, otherwise unremarkable. BMP from yesterday has multiple electrolyte abnormalities including: Sodium 123, potassium 3.3, chloride 90, serum bicarb 14, BUN 53, creatinine 6.05, glucose 97. Lactic acid level was elevated at 3.9 and is down to 1.6. Magnesium level 0.9. LFTs mildly elevated. Total bili 1.8. Troponins elevated at 0.102, 0.116, and 0.132 respectively. Negative for influenza, RSV, COVID. Patient has been covered on broad-spectrum antibiotics including vancomycin, Zosyn, and azithromycin. Patient's current respiratory status is labile. On today's evaluation of 09/20/2023, the patient is being seen for a follow-up. Currently, the patient intubated on mechanical ventilator and sedated and paralyzed. This morning, the patient is on a propofol running at 30 mcg/kg/min and the patient is also on fentanyl at 0.3 mcg/kg/h. The patient is on Nimbex at 1 mcg/kg/min. While being on the mechanical ventilator, the patient assist- control mode at a rate of 30, tidal volume of 400, FiO2 is at 90% with a PEEP of 12. Urine output is in order of 20 to 30 cc an hour. Patient remains on norepinephrine running at 0.25 mcg/kg/min and the patient is also on physiologic dose of vasopressin. While on the mechanical ventilator, the peak airway pressure is around 20, CVP is at 16. The patient was resuscitated with IV fluids and the fluid balance is +4.6 L over the past 24 hours. The blood gas shows a pH of 7.2 with a pCO2 of 45 and a pO2 of 86. Chest x-ray is consistent with bilateral pneumonia. The white cell count today is at 26.8 with a hemoglobin of 11 and a platelet count of 225. Sodium is at 123, potassium level is at 4.2, serum bicarb is at 15, BUN is at 7 6. Creatinine 6.85. The patient total calcium level is at 5.9 and the corrected calcium level is at 7.1. Phosphorus level is at 9.8. LFTs show an bilirubin of 1.2, AST of 420, ALT of 200. The patient remains on a combination of antibiotics including IV cefepime, vancomycin and Zithromax. I performed a bronchoscopy endobronchial lavage of the right lower lobe. There was purulent respiratory secretions the right lung base that was suctioned out without any major difficulties. Blood cultures are negative thus far. The patient was also started on enteral feeding for nutritio nal support. Abdominal ultrasound showed normal common bile duct, normal kidneys without evidence of any hydronephrosis. Will on today's evaluation of 09/21/2023, the patient remains intubated on [facility] ventilator. Diagnosed having the Legionella pneumonia and urine antigen was positive. Bronchoscopy was done and the bronchial lavage results are still pending for now. This morning, the patient is on propofol running at 45 mcg/kg/min and the patient is also on fentanyl at 0.5 mcg/kg/h and Nimbex at 2 mcg/kg. Minutes. IV fluids are currently at KVO. Pressors have been off since midnight. The patient is hemodynamically stable. Underwent hemodialysis yesterday with a total of 2 L of ultrafiltration. Another session is in progress this morning. Remains on mechanical ventilator on assist-control mode and the patient is at rate of 30, tidal volume 400, FiO2 of 80% with a PEEP of 15. Blood gas showed pH of 7.42 with a pCO2 of 56 and pO2 of 101. Chest x-ray shows bilateral pulmonary consolidation consistent with pneumonia. Peak airway pressure is around 28. Patient is currently on Nepro at rate of 20 cc an hour. The white cell count of 25.8, hemoglobin 10.7 and a platelet count of 235. Blood gases was noted. Sodium levels at 129, potassium is at 4.2 with a BUN of 69 and creatinine of 6. LFTs are still mildly elevated. Vancomycin was discontinued. Zithromax was discontinued and the patient was started on Levaquin 500 mg every 48 hours. IV cefepime was maintained. 09/23/2023, the patient is being seen in a follow-up. He remains intubated on the mechanical ventilator. This morning, the patient on propofol at 25 mcg/kg/min and fentanyl at 2 mcg/kg/h. He is on assist-control mode of mechanical ventilation at rate of 30, tidal volume of 400, FiO2 50% with a PEEP of 15. Blood gas showed a pH of 7.35 with a pCO2 of 48 and pO2 of 82. The patient is on assist-control mode of mechanical ventilation. The blood gas from todayShows a pH of 7.35 with a pCO2 of 48 and pO2 of 72. Chest x-ray shows no major interval change and the patient continues to have bilateral pulmonary infiltrates and consolidations. The patient remains on cefepime and Levaquin. Note that the patient has been off paralytics for the past 48 hours. He grimaces to painful stimulation. He withdraws to painful stimulation in all 4 extremities. Fluid balance is -300 cc over the past 24 hours. IV fluids ordered for normal saline at rate of 10. Urine output is noted of 10 cc an hour. The patient is undergoing daily hemodialysis. Last hemodialysis session was yesterday a total of 2.5 L of fluid was removed. The patient remains on Nepro at rate of 41 cc an hour. The WBC count is at 16 with a hemoglobin 9.8 and a platelet count of 311. BUN is 77 with a creatinine of 6.2 and a sodium levels at 132 with a potassium level of 4. LFTs continue to improve. Afebrile. Hemodynamically stable on no pressors. No other significant events overnight. On 09/24/2023, the patient is being seen for a follow-up. He is intubated and mechanically ventilated. This morning, he is on a combination of propofol and fentanyl. Propofol is running at 65 mcg and fentanyl is at 2 mcg. He is on assist-control mode of mechanical ventilation at rate of 30, tidal volume of 400, FiO2 of 50% with a PEEP of 15. Blood gases showed pH of 7.34 with a pCO2 of 52 and pO2 of 88. The peak airway pressure is 30, static airway pressure is 28 and the chest x-ray findings are essentially unchanged. Remains on Nepro at 12 cc an hour. Urine output is in the order of 10 to 15 cc and the patient is undergoing daily hemodialysis. He is currently undergoing hemodialysis. He is hemodynamically stable on no pressors. He is afebrile. He is on Rocephin and Levaquin. He is also on IV Solu-Medrol and bronchodilators. No major changes in his condition. 09/25/2023, the patient is being seen for a follow-up. Some improvement in oxygenation compared to yesterday. 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 This morning, he remains on propofol at 25 mcg/kg/min and the patient is also on fentanyl at 2 mcg/kg/h. He is on IV fluids at KVO. Hemodialysis was done yesterday and the patient was ultrafiltrate to a total of 2.5 L. He is currently on assist-control mode of mechanical ventilation at rate of 30, tidal volume of 400, FiO2 40% and PEEP of 14. Blood gas from today shows a pH of 7.39 with a pCO2 of 42 and pO2 of 100. Chest x-ray showed atelectatic changes bilaterally in the left midlung in the right lower lobe. The patient continues to have some infiltration of the lung base bilaterally. ET tube is in a good location. The patient is receiving e nteral feeding for nutritional support with Nepro at rate of 12 cc an hour. He is producing adequate amount of stools. WBC count at 22 with a hemoglobin of 9.6 and a platelet count of 342. Rest of the blood work shows a sodium level of 129, BUN of 88 and a creatinine of 5.47 and a potassium level is at 4.7. He remains on Levaquin and Rocephin. He remains on IV Solu-Medrol. He remains on bronchodilators. He remains on sliding scale insulin coverage. He is also on heparin subcu for DVT prophylaxis. Objective - Vital Signs Vital signs: Vital Signs Temp 98.4 F 09/25/23 04:00 Pulse 88 09/25/23 08:32 Resp 30 H 09/25/23 07:00 BP 158/87 09/25/23 07:00 Pulse Ox 97 09/25/23 07:00 FiO2 50 09/25/23 07:53 Intake & Output 09/24/23 09/25/23 09/25/23 18:59 06:59 18:59 Intake Total 1429.969 814.179 125 Output Total 3090 260 20 Balance -1660.031 554.179 105 Weight 95.073 kg Intake: IV 206 156 13 0.9 NS 120 120 10 CVP 36 36 3 cefTRIAXone 2 gm In 50 Sodium Chloride 0.9% 50 ml @ 100 mls/hr IVPB Q24HR [facility] Rx#:[id number] Intake, IV Titration 579.969 436.179 100 Amount fentaNYL (PF). 1,000 mcg 193.425 200 In Sodium Chloride 0.9% 80 ml @ 0.5 MCG/KG/HR 4. 196 mls/hr IV .[id number] [facility] Rx#:[id number] propofoL 1,000 mg In 386.544 236.179 100 Empty Bag 1 bag @ 15 MCG/ KG/MIN 7.552 mls/hr IV . [id number] [facility] Rx#:[id number] Tube Feeding 144 132 12 Hemodialysis 500 Other 90 Output: Urine 90 260 20 Hemodialysis 3000 Other: Voiding Method Indwelling Catheter Indwelling Catheter ABP, PAP, CO, CI - Last Documented Arterial Blood Pressure 92/87 - Exam GENERAL EXAM: Alert, 58-year-old white male, intubated, sedated and paralyzed. The patient has an orogastric and orotracheal tube are both in place. HEAD: Normocephalic and atraumatic EYES: Normal reaction of pupils, equal size. NOSE: Clear with pink turbinates. THROAT: No erythema or exudates. NECK: No masses, no JVD. CHEST: No chest wall deformity. LUNGS: Equal air entry with diffuse rhonchi and expiratory wheezing with bibasilar inspiratory crackles. CVS: S1 and S2 normal with no audible murmur, regular rhythm. No extra heart sounds ABDOMEN: No hepatosplenomegaly, active bowel sounds, no guarding or rigidity. SPINE: No scoliosis or deformity SKIN: No rashes CENTRAL NERVOUS SYSTEM: the patient is sedated and paralyzed at this point in time. Pupils are equal reactive to light. EXTREMITIES: There is no peripheral edema, clubbing, or cyanosis. Peripheral pulses are intact. - Labs CBC & Chem 7: 09/25/23 05:18 09/25/23 05:18 Labs: Abnormal Lab Results - Last 24 Hours (Table) 09/24/23 09/24/23 09/25/23 Range/Units 11:55 23:29 05:18 WBC 22.1 H (3.8-10.6) k/uL RBC 2.95 L (4.30-5.90) m/uL Hgb 9.6 L (13.0-17.5) gm/dL Hct 28.2 L (39.0-53.0) % Neutrophils # (Manual) 18.30 H (1.3-7.7) k/uL Lymphocytes # (Manual) 0.66 L (1.0-4.8) k/uL Metamyelocytes # (Man) 1.11 H (0) k/uL Myelocytes # (Manual) 1.77 H (0) k/uL ABG HCO3 (21-25) mmol/L ABG Total CO2 (19-24) mmol/L ABG O2 Saturation (94-97) % Sodium (137-145) mmol/L Chloride (98-107) mmol/L BUN (9-20) mg/dL Creatinine (0.66-1.25) mg/dL Glucose (74-99) mg/dL POC Glucose (mg/dL) 134 H 147 H (70-110) mg/dL Calcium (8.4-10.2) mg/dL 09/25/23 09/25/23 09/25/23 Range/Units 05:18 05:31 05:40 WBC (3.8-10.6) k/uL RBC (4.30-5.90) m/uL Hgb (13.0-17.5) gm/dL Hct (39.0-53.0) % Neutrophils # (Manual) (1.3-7.7) k/uL Lymphocytes # (Manual) (1.0-4.8) k/uL Metamyelocytes # (Man) (0) k/uL Myelocytes # (Manual) (0) k/uL ABG HCO3 26 H (21-25) mmol/L ABG Total CO2 27 H (19-24) mmol/L ABG O2 Saturation 97.5 H (94-97) % Sodium 129 L (137-145) mmol/L Chloride 92 L (98-107) mmol/L BUN 88 H (9-20) mg/dL Creatinine 5.47 H (0.66-1.25) mg/dL Glucose 151 H (74-99) mg/dL POC Glucose (mg/dL) 162 H (70-110) mg/dL Calcium 7.7 L (8.4-10.2) mg/dL Microbiology - Last 24 Hours (Table) 09/23/23 14:10 Blood Culture - Preliminary Blood 09/18/23 13:50 Blood Culture Gram Stain - Final Blood Blood Culture - Final Streptococcus viridans group Molecular ID Assessment and Plan Assessment: 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 Acute hypoxic respiratory failure secondary to Legionella pneumonia and the patient has bilateral multilobar pneumonia, the patient is currently intubated on mechanical ventilator. Intubation was performed on 09/19/2023. Bronchoscopy endobronchial lavage of the right lower lobe was done. The Legionella urine antigen was positive and the patient remains on Levaquin and Rocephin for now. He remains intubated on mechanical ventilator. The patient is currently off paralytics. Limited improvement in oxygenation over the past 24 hours Shock, likely septic in nature, improved and the patient is currently off pressors. Acute COPD exacerbation secondary to above Severe dehydration at time of admission and the patient has been medically resuscitated IV fluids. Last hemodialysis was yesterday with a total of 2.5 L of ultrafiltration Acute kidney injury, likely secondary to severe dehydration, sepsis, and acute tubular necrosis. No evidence of any hydronephrosis. The patient has diminished urine output and the creatinine remains elevated. Nephrology is on the case and the patient is undergoing daily hemodialysis, Electrolytes are all stable. Urine output is noted of 10 cc an hour, Mild transaminitis, secondary to sepsis, improving Elevated troponins, likely supply/demand mismatch History of hypertension History of hyperlipidemia History of coronary artery disease Current everyday smoker, with a 30 to 40 pack year history Plan Keep the patient sedated with a combination of propofol and fentanyl and the patient is currently off paralytics. Continue vent support and will drop the PEEP down to 12 and keep FiO2 at 40% Bronchoscopy was performed endobronchial lavage of the right lower lobe, results are negative for now. It showed some Farzana which is essentially a colonizer. Continue Levaquin and Rocephin Daily hemodialysis, last hemodialysis was done yesterday Currently off pressors Continue bronchodilators with DuoNeb updrafts [id number] Continue Solu-Medrol Continue enteral feeding for nutritional support, currently on Nepro IV fluids to KVO Will continue to follow make further recommendations based on the progress. Wean off sedation starting with fentanyl Condition is critical. Family has been updated. This evaluation was done more than 30 minutes. Case is being discussed and coordinated with the various consultants involved in the care of this patient. This evaluation was done more than 30 minutes. Time with Patient: Greater than 30
--- NOTE | 2023-09-25 10:37 | P.PN ---
Subjective Progress Note Date: 09/25/23 Patient is a 58-year-old male with known hypertension, dyslipidemia, and coronary artery disease who presented with shortness of breath. On arrival to the ER vitals were remarkable for temperature of 103.3, pulse 131, and O2 sat 88% on room air. Laboratory analysis was remarkable for white blood cell count 21.1, sodium 122, bicarb 18, anion gap 20, and creatinine of 5.94. He was also noted to have a lactic acid of 3.9, magnesium 0.9, total bilirubin 1.8, AST 110, ALT 53, and troponin of 0.102. Influenza A/B/RSV/COVID-19 testing was negative. Chest x-ray demonstrated pneumonia in the right lower lobe greater than the left. He underwent a pelvic x-ray which showed no acute process. Head CT showed no acute process. He was admitted for further monitoring. Nephrology, pulmonology, and cardiology were consulted. Patient's respiratory status worsened despite being on broad-spectrum antibiotics and he ultimately required intubation and vasopressor support. His troponin elevated mildly, he underwent echocardiogram which showed an ejection of 50 to 55% with no regional wall motio n abnormalities and cardiology felt this was likely a type II non-STEMI. His renal function did not improve and he ultimately underwent hemodialysis on 09/19. Bronchoscopy with lavage noted significant purulence in the right lower lobe. Patient's Legionella urine antigen came back positive. He was subsequently transition to Levaquin on 09/19. Prior to that patient did receive 3 days of Zithromax. Nimbex, vasopressin and Levophed were able to be weaned off by 09/20. He continued to be agitated on fentanyl and propofol as well as tachycardic. He continued to require hemodialysis. Patient seen and examined at bedside. He remains sedated on time. No acute events overnight per nursing. Vital signs reviewed General: Nontoxic, moderate distress, appears at stated age Cardiovascular: S1S2 reg, no murmur Lungs: Coarse bilateral, no rhonchi, no rales, no accessory muscle use Abdominal: Soft, nontender to palpation, no guarding Ext: No gross muscle atrophy, no edema b/l lower extremities, no contractures Neuro: Sedated on vent Psych: Sedated on vent Assessment/Plan: Legionella pneumonia with septic shock, improved Acute hypoxic respiratory failure Acute exacerbation of COPD Strep viridans bacteremia, felt likely to be contaminant -Levaquin 500 mg IV piggyback every 48 hours day #6 -Solu-Medrol 60 mg IV every 6 hours -DuoNeb every 4 hours, piriformis 20 mcg twice daily -Pulmonary note reviewed: Wean off sedation starting with fentanyl. Continue ventilator support. -Await further ID recs Acute kidney injury secondary to ATN from septic shock Hypervolemic hyponatremia Metabolic acidosis secondary to ROBERTO Hyperphosphatemia secondary to ROBERTO -Hemodialysis tomorrow -Nephrology note reviewed: Continue with IV Lasix -PhosLo 667 mg with meals, Tums 500 mg 3 times daily -Lasix 80 mg IV daily Transaminitis Right hepatic lobe lesion 2.5 x 3.1 x 2.3 cm -Evaluation with liver mass protocol and MRI recommended. Will need to be deferred until patient is off of ventilator. - Repeat CMP in AM Type II non-STEMI History of coronary artery disease Hypertension -Lipitor 80 mg daily, Plavix 75 mg daily, hydralazine 50 mg 3 times daily, metoprolol 25 mg twice daily -Follow blood pressures -Cardiology note reviewed: Continue with supportive care. Will follow on an as- needed basis. Anemia -Stable -Likely delusional and related to critical illness -Follow CBC Possible EtOH withdrawal - on CIWA Imaging: Chest x-ray reviewed with continued right-sided infiltrate, overall improved from prior Data Review: Labs reviewed from today include CBC and basic metabolic profile which are remarkable for white blood cell count 22.1, hemoglobin 9.6, sodium 129, chloride 92, BUN 88, creatinine 5.74 DVT prophylaxis: Heparin Anticipated discharge date: Pending clinical course Anticipated discharge place: Pending clinical course This dictation was prepared using [employer] voice recognition software. Though every attempt is made to correct errors during dictation some may still exist. Objective - Vital Signs Vital signs: Vital Signs Temp 98.4 F 09/25/23 04:00 Pulse 88 09/25/23 08:32 Resp 30 H 09/25/23 07:00 BP 158/87 09/25/23 07:00 Pulse Ox 97 09/25/23 07:00 FiO2 50 09/25/23 07:53 Intake & Output 09/24/23 09/25/23 09/25/23 18:59 06:59 18:59 Intake Total 1429.969 814.179 125 Output Total 3090 260 20 Balance -1660.031 554.179 105 Weight 95.073 kg Intake: IV 206 156 13 0.9 NS 120 120 10 CVP 36 36 3 cefTRIAXone 2 gm In 50 Sodium Chloride 0.9% 50 ml @ 100 mls/hr IVPB Q24HR [facility] Rx#:[id number] Intake, IV Titration 579.969 436.179 100 Amount fentaNYL (PF). 1,000 mcg 193.425 200 In Sodium Chloride 0.9% 80 ml @ 0.5 MCG/KG/HR 4. 196 mls/hr IV .[id number] [facility] Rx#:[id number] propofoL 1,000 mg In 386.544 236.179 100 Empty Bag 1 bag @ 15 MCG/ KG/MIN 7.552 mls/hr IV . [id number] [facility] Rx#:[id number] Tube Feeding 144 132 12 Hemodialysis 500 Other 90 Output: Urine 90 260 20 Hemodialysis 3000 Other: Voiding Method Indwelling Catheter Indwelling Catheter ABP, PAP, CO, CI - Last Documented Arterial Blood Pressure 92/87 - Labs CBC & Chem 7: 09/25/23 05:18 09/25/23 05:18 Labs: Abnormal Lab Results - Last 24 Hours (Table) 09/24/23 09/24/23 09/25/23 Range/Units 11:55 23:29 05:18 WBC 22.1 H (3.8-10.6) k/uL RBC 2.95 L (4.30-5.90) m/uL Hgb 9.6 L (13.0-17.5) gm/dL Hct 28.2 L (39.0-53.0) % Neutrophils # (Manual) 18.30 H (1.3-7.7) k/uL Lymphocytes # (Manual) 0.66 L (1.0-4.8) k/uL Metamyelocytes # (Man) 1.11 H (0) k/uL Myelocytes # (Manual) 1.77 H (0) k/uL ABG HCO3 (21-25) mmol/L ABG Total CO2 (19-24) mmol/L ABG O2 Saturation (94-97) % Sodium (137-145) mmol/L Chloride (98-107) mmol/L BUN (9-20) mg/dL Creatinine (0.66-1.25) mg/dL Glucose (74-99) mg/dL POC Glucose (mg/dL) 134 H 147 H (70-110) mg/dL Calcium (8.4-10.2) mg/dL 09/25/23 09/25/23 09/25/23 Range/Units 05:18 05:31 05:40 WBC (3.8-10.6) k/uL RBC (4.30-5.90) m/uL Hgb (13.0-17.5) gm/dL Hct (39.0-53.0) % Neutrophils # (Manual) (1.3-7.7) k/uL Lymphocytes # (Manual) (1.0-4.8) k/uL Metamyelocytes # (Man) (0) k/uL Myelocytes # (Manual) (0) k/uL ABG HCO3 26 H (21-25) mmol/L ABG Total CO2 27 H (19-24) mmol/L ABG O2 Saturation 97.5 H (94-97) % Sodium 129 L (137-145) mmol/L Chloride 92 L (98-107) mmol/L BUN 88 H (9-20) mg/dL Creatinine 5.47 H (0.66-1.25) mg/dL Glucose 151 H (74-99) mg/dL POC Glucose (mg/dL) 162 H (70-110) mg/dL Calcium 7.7 L (8.4-10.2) mg/dL Microbiology - Last 24 Hours (Table) 09/23/23 14:10 Blood Culture - Preliminary Blood 09/18/23 13:50 Blood Culture Gram Stain - Final Blood Blood Culture - Final Streptococcus viridans group Molecular ID
[2023-09-25 11:41] LABS: Glucose,Whole Blood 147 mg/dL (70-110)
[2023-09-25 17:04] LABS: Glucose,Whole Blood 164 mg/dL (70-110)
[2023-09-25 23:44] LABS: Glucose,Whole Blood 139 mg/dL (70-110)
[2023-09-26 05:39] LABS: ABG Base Excess -2.8 mmol/L; ABG HCO3 23 mmol/L (21-25); ABG Oxygen Saturation 90.4 % (94-97); ABG PCO2 41 mmHg (35-45); ABG PH 7.35 (7.35-7.45); ABG PO2 63 mmHg (83-108); ABG TCO2 24 mmol/L (19-24); Allen Test Performed? Yes
[2023-09-26 06:03] LABS: HCT 25.9 % (39.0-53.0); HGB 9.1 gm/dL (13.0-17.5); MCH 33.3 pg (25.0-35.0); MCHC 35.1 g/dL (31.0-37.0); Mean Platelet Volume 8.9; Platelet Count 347 k/uL (150-450); RBC 2.73 m/uL (4.30-5.90); RDW 14.6 % (11.5-15.5)
[2023-09-26 06:09] LABS: ALT 68 U/L (4-49); AST 33 U/L (17-59); Albumin 2.8 g/dL (3.5-5.0); Alkaline Phosphatase 116 U/L (38-126); Anion Gap 16 mmol/L; Calcium 7.8 mg/dL (8.4-10.2); Carbon Dioxide 19 mmol/L (22-30); Chloride 93 mmol/L (98-107); Glucose 132 mg/dL (74-99); Potassium 4.7 mmol/L (3.5-5.1); Sodium 128 mmol/L (137-145); Total Bilirubin 0.4 mg/dL (0.2-1.3); Total Protein 5.3 g/dL (6.3-8.2)
[2023-09-26 06:14] LABS: African American GFR (CKD) 9 (>60 ml/min/1.73 sqM); Non-African American GFR(CKD) 8 (>60 ml/min/1.73 sqM)
[2023-09-26 06:23] LABS: Glucose,Whole Blood 152 mg/dL (70-110)
[2023-09-26 06:50] LABS: Band Neutrophils % 3 %; Metamyelocytes % 5 %; Monocytes # (M) 0.26 k/uL (0-1.0); Myelocytes # (M) 0.78 k/uL (0); Myelocytes % 3 %; Neutrophils % (M) 79 %; Nucleated Red Blood Cells 0 /100 WBC (0-0); Total Cells Counted 200
[2023-09-26 07:11] LABS: RBC Morphology Normal
[2023-09-26 07:56] LABS: Blood Urea Nitrogen 128 mg/dL (9-20)
--- NOTE | 2023-09-26 09:12 | XR ---
EXAMINATION TYPE: XR chest 1V portable, semiupright DATE OF EXAM: 09/26/2023 Comparison: 09/25/2023 Clinical History: 58-year-old male shortness of breath Findings: ET tube satisfactory. NG tube courses below the diaphragm. Left subclavian CVC tip lower SVC. Heart n ormal size. There is obscuration of the left hemidiaphragm which has worsened. Multifocal patchy inte rstitial opacities slightly increased as well. Impression: New obscuration left hemidiaphragm suggesting worsening atelectasis or infiltrate at the left base, p ossible small effusion. Additional patchy and interstitial changes bilaterally have slightly worsened as well.
--- NOTE | 2023-09-26 09:49 | P.PN ---
Subjective Patient is seen in follow-up for acute kidney injury. Started on hemodialysis September 20, 2023. Intubated. Off vasopressors. On IV Lasix. Urine output improved to 50 to 60 cc an hour. Vital signs are stable. General: Resting in bed. HEENT: Intubated. LUNGS: Scattered rhonchi. HEART: Rate and Rhythm are regular. ABDOMEN: No distention. EXTREMITITES: 1+ edema. Objective - Vital Signs Vital signs: Vital Signs Temp 98.8 F 09/26/23 04:00 Pulse 85 09/26/23 08:08 Resp 12 09/26/23 07:00 BP 135/77 09/26/23 07:00 Pulse Ox 97 09/26/23 07:00 FiO2 40 09/26/23 07:43 Intake & Output 09/25/23 09/26/23 09/26/23 18:59 06:59 18:59 Intake Total 808.425 858.984 125 Output Total 445 780 50 Balance 363.425 78.984 75 Weight 91.2 kg Intake: IV 169 143 13 0.9 NS 130 110 10 CVP 39 33 3 Intake, IV Titration 393.425 493.984 100 Amount fentaNYL (PF). 1,000 mcg 193.425 100 100 In Sodium Chloride 0.9% 80 ml @ 0.5 MCG/KG/HR 4. 196 mls/hr IV .[id number] DANNA Rx#:[id number] propofoL 1,000 mg In 200 393.984 Empty Bag 1 bag @ 15 MCG/ KG/MIN 7.552 mls/hr IV . [id number] DANNA Rx#:[id number] Tube Feeding 156 132 12 Other 90 90 Output: Urine 445 780 50 Other: Voiding Method Indwelling Catheter Indwelling Catheter ABP, PAP, CO, CI - Last Documented Arterial Blood Pressure 92/87 - Labs CBC & Chem 7: 09/26/23 05:23 09/26/23 05:23 Labs: Abnormal Lab Results - Last 24 Hours (Table) 09/25/23 09/25/23 09/25/23 Range/Units 11:40 17:03 23:43 WBC (3.8-10.6) k/uL RBC (4.30-5.90) m/uL Hgb (13.0-17.5) gm/dL Hct (39.0-53.0) % Neutrophils # (Manual) (1.3-7.7) k/uL Metamyelocytes # (Man) (0) k/uL Myelocytes # (Manual) (0) k/uL ABG pO2 (83-108) mmHg ABG O2 Saturation (94-97) % Sodium (137-145) mmol/L Chloride (98-107) mmol/L Carbon Dioxide (22-30) mmol/L BUN (9-20) mg/dL Creatinine (0.66-1.25) mg/dL Glucose (74-99) mg/dL POC Glucose (mg/dL) 147 H 164 H 139 H (70-110) mg/dL Calcium (8.4-10.2) mg/dL ALT (4-49) U/L Total Protein (6.3-8.2) g/dL Albumin (3.5-5.0) g/dL 09/26/23 09/26/23 09/26/23 Range/Units 05:23 05:23 05:38 WBC 26.0 H (3.8-10.6) k/uL RBC 2.73 L (4.30-5.90) m/uL Hgb 9.1 L (13.0-17.5) gm/dL Hct 25.9 L (39.0-53.0) % Neutrophils # (Manual) 21.30 H (1.3-7.7) k/uL Metamyelocytes # (Man) 1.30 H (0) k/uL Myelocytes # (Manual) 0.78 H (0) k/uL ABG pO2 63 L (83-108) mmHg ABG O2 Saturation 90.4 L (94-97) % Sodium 128 L (137-145) mmol/L Chloride 93 L (98-107) mmol/L Carbon Dioxide 19 L (22-30) mmol/L BUN 128 H* (9-20) mg/dL Creatinine 6.71 H (0.66-1.25) mg/dL Glucose 132 H (74-99) mg/dL POC Glucose (mg/dL) (70-110) mg/dL Calcium 7.8 L (8.4-10.2) mg/dL ALT 68 H (4-49) U/L Total Protein 5.3 L (6.3-8.2) g/dL Albumin 2.8 L (3.5-5.0) g/dL 09/26/23 Range/Units 06:10 WBC (3.8-10.6) k/uL RBC (4.30-5.90) m/uL Hgb (13.0-17.5) gm/dL Hct (39.0-53.0) % Neutrophils # (Manual) (1.3-7.7) k/uL Metamyelocytes # (Man) (0) k/uL Myelocytes # (Manual) (0) k/uL ABG pO2 (83-108) mmHg ABG O2 Saturation (94-97) % Sodium (137-145) mmol/L Chloride (98-107) mmol/L Carbon Dioxide (22-30) mmol/L BUN (9-20) mg/dL Creatinine (0.66-1.25) mg/dL Glucose (74-99) mg/dL POC Glucose (mg/dL) 152 H (70-110) mg/dL Calcium (8.4-10.2) mg/dL ALT (4-49) U/L Total Protein (6.3-8.2) g/dL Albumin (3.5-5.0) g/dL Microbiology - Last 24 Hours (Table) 09/23/23 14:10 Blood Culture - Preliminary Blood 09/24/23 05:03 Blood Culture - Preliminary Blood Assessment and Plan Plan: Assessment: 1. Acute kidney injury secondary to ATN secondary to septic shock. Creatinine 0.8-0.9 in March 2023. This admission creatinine was near 6 with no improvement. Started on hemodialysis September 20, 2023. Has right femoral catheter. No hydronephrosis noted on imaging. On IV Lasix. Urine output improved to 50 to 60 cc an hour now. Elevated BUN partially due to steroids. 2. Septic shock secondary to pneumonia maintained on antibiotics. Urine Legionella antigen positive. 3. Acute hypoxic respiratory failure. On 40% FiO2. 4. Hypervolemic hyponatremia. 5. Volume overload. Improving with ultrafiltration. 6. Metabolic acidosis secondary to acute kidney injury. 7. Hyperphosphatemia secondary to acute kidney injury. On PhosLo. Plan: Hemodialysis today. Challenge ultrafiltration. Receiving tube feeds. Wean FiO2. Avoid nephrotoxins. Monitor for renal recovery. Maintain IV Lasix. Serologies negative. Maintain Aranesp.
--- NOTE | 2023-09-26 11:35 | P.PN ---
Subjective Progress Note Date: 09/26/23 Hospital Course: 58-year-old male with history of hypertension, dyslipidemia, coronary artery d isease presenting with shortness of breath. In the ED, temperature was 103.3, pulse 131, respiratory rate 30, blood pressure 118/86, saturating 88% on room air. WBC 21.2, hemoglobin 13, pH 7.41, pCO2 33, sodium 122, potassium 3.4, bicarb 18, anion gap 20, creatinine 5.94, lactic acid 3.9, magnesium 0.9, total bili 1.8, AST 110, ALT 53, ALP 105, troponin 0.102. Respiratory viral panel negative. Chest x-ray shows multifocal pneumonia right lower lobe greater than left. EKG shows sinus tachycardia with right bundle you block. Pelvic x-ray shows no acute process. Head CT shows no acute process. Pulmonology, nephrology, cardiology consulted. Respiratory function progressively worsening despite being on broad-spectrum antibiotics. Patient is was subsequently intubated, on vasopressors. Troponin mildly elevated 0.102, 0.116, 0.132. Cardiology consulted, Echo EF 50-55% with no regional wall motion abnormalities, likely Type II TN. Right femoral HD catheter inserted 09/19, daily HD ordered by Nephrology. He underwent bronchoscopy with lavage on 09/19 with significant purulence noted in the RLL. Legionella Ag +, maintained on ceftriaxone and Levaquin. Vasopressin and Levophed weaned off 09/20. Remains sedated. Still on mechanical ventilated. Continue to be on dialysis. Subjective: Seen and examined at bedside. No acute events overnight. Remains intubated. No pressors. On propofol and fentanyl for sedation. Urine output increasing. Very small bowel movements. Did have high residual. Pertinent positives and negatives as discussed above, a complete review of syste ms was performed and all other systems are negative. Vitals Signs Reviewed. General: Intubated sedated Derm: Warm, dry Head: Atraumatic, normocephalic, symmetric Eyes: Pupils equal and reactive Mouth: No lip lesion, mucus membranes moist Cardiovascular: S1S2 reg, no murmur Lungs: Bilateral rhonchi, no accessory muscle use, mechanically ventilated Abdominal: Soft, nondistended, no guarding, no appreciable organomegaly Ext: No gross muscle atrophy, no edema, no contractures Neuro: Sedated Psych: Unable to assess Data Reviewed Today: Pertinent Labs: WBC 26, hemoglobin 9.1, pH 7.35, pCO2 41, pO2 63, bicarb 23, sodium 128, BUN 128, creatinine 6.71, glucose range between 1 32-1 52 Imaging: Chest x-ray independently interpreted, shows persistent bilateral multifocal opacities, with worsening opacity in the left lower lung Assessment and Plan: Patient is critically ill, prognosis guarded. Acute hypoxic respiratory failure Septic shock due to Legionella pneumonia Strep viridans bacteremia -Continue ceftriaxone 2 g IV every 24 hours, levofloxacin 500 IV every 48 hours -Continue DuoNeb every 4 hours, Solu-Medrol 60 every 6 hours IV, monitor blood sugars, on sliding scale insulin -ID following -BAL positive for Farzana albicans -Pulmonology managing vent settings -Off of vasopressors -Consider further sedation holiday, continue to wean sedation Acute kidney injury, on hemodialysis Hyperphosphatemia Microcytic anemia Hypertension Hypervolemic hyponatremia Hypocalcemia -Continue to hold lisinopril and hydrochlorothiazide -Nephrology note reviewed, maintain IV Lasix 80 daily, hemodialysis today, continue PhosLo 3 times daily, darbepoetin weekly -On hydralazine 50 3 times daily, IV hydralazine as needed -Repeat BMP, CBC tomorrow -Also on calcium carbonate 500 3 times daily Likely EtOH withdrawal -Ativan PRN per CIWA scale Troponin elevation, Type II TN History of CAD -Plavix 75 mg PO QD. Metoprolol 25 mg PO BID. -Continue atorvastatin 80 daily Transaminitis -Abd US intermediate legion in the right hepatic lobe, MRI recommended. CBD within normal limits. DVT ppx: Subcu heparin Code status: Full code Anticipated discharge place: Pending clinical course Anticipated discharge time: Pending clinical course Objective - Vital Signs Vital signs: Vital Signs Temp 98.3 F 09/26/23 08:00 Pulse 79 09/26/23 11:00 Resp 30 H 09/26/23 11:00 BP 129/78 09/26/23 11:00 Pulse Ox 97 09/26/23 11:00 FiO2 40 09/26/23 08:00 Intake & Output 09/25/23 09/26/23 09/26/23 18:59 06:59 18:59 Intake Total 808.425 858.984 125 Output Total 445 780 50 Balance 363.425 78.984 75 Weight 91.2 kg 91.2 kg Intake: IV 169 143 13 0.9 NS 130 110 10 CVP 39 33 3 Intake, IV Titration 393.425 493.984 100 Amount fentaNYL (PF). 1,000 mcg 193.425 100 100 In Sodium Chloride 0.9% 80 ml @ 0.5 MCG/KG/HR 4. 196 mls/hr IV .[id number] [facility]ANNA Rx#:[id number] propofoL 1,000 mg In 200 393.984 Empty Bag 1 bag @ 15 MCG/ KG/MIN 7.552 mls/hr IV . [id number] DANNA Rx#:[id number] Tube Feeding 156 132 12 Other 90 90 Output: Urine 445 780 50 Other: Voiding Method Indwelling Catheter Indwelling Catheter Indwelling Catheter ABP, PAP, CO, CI - Last Documented Arterial Blood Pressure 127/55 - Labs CBC & Chem 7: 09/26/23 05:23 09/26/23 05:23 Labs: Abnormal Lab Results - Last 24 Hours (Table) 09/25/23 09/25/23 09/25/23 Range/Units 11:40 17:03 23:43 WBC (3.8-10.6) k/uL RBC (4.30-5.90) m/uL Hgb (13.0-17.5) gm/dL Hct (39.0-53.0) % Neutrophils # (Manual) (1.3-7.7) k/uL Metamyelocytes # (Man) (0) k/uL Myelocytes # (Manual) (0) k/uL ABG pO2 (83-108) mmHg ABG O2 Saturation (94-97) % Sodium (137-145) mmol/L Chloride (98-107) mmol/L Carbon Dioxide (22-30) mmol/L BUN (9-20) mg/dL Creatinine (0.66-1.25) mg/dL Glucose (74-99) mg/dL POC Glucose (mg/dL) 147 H 164 H 139 H (70-110) mg/dL Calcium (8.4-10.2) mg/dL ALT (4-49) U/L Total Protein (6.3-8.2) g/dL Albumin (3.5-5.0) g/dL 09/26/23 09/26/23 09/26/23 Range/Units 05:23 05:23 05:38 WBC 26.0 H (3.8-10.6) k/uL RBC 2.73 L (4.30-5.90) m/uL Hgb 9.1 L (13.0-17.5) gm/dL Hct 25.9 L (39.0-53.0) % Neutrophils # (Manual) 21.30 H (1.3-7.7) k/uL Metamyelocytes # (Man) 1.30 H (0) k/uL Myelocytes # (Manual) 0.78 H (0) k/uL ABG pO2 63 L (83-108) mmHg ABG O2 Saturation 90.4 L (94-97) % Sodium 128 L (137-145) mmol/L Chloride 93 L (98-107) mmol/L Carbon Dioxide 19 L (22-30) mmol/L BUN 128 H* (9-20) mg/dL Creatinine 6.71 H (0.66-1.25) mg/dL Glucose 132 H (74-99) mg/dL POC Glucose (mg/dL) (70-110) mg/dL Calcium 7.8 L (8.4-10.2) mg/dL ALT 68 H (4-49) U/L Total Protein 5.3 L (6.3-8.2) g/dL Albumin 2.8 L (3.5-5.0) g/dL 09/26/23 Range/Units 06:10 WBC (3.8-10.6) k/uL RBC (4.30-5.90) m/uL Hgb (13.0-17.5) gm/dL Hct (39.0-53.0) % Neutrophils # (Manual) (1.3-7.7) k/uL Metamyelocytes # (Man) (0) k/uL Myelocytes # (Manual) (0) k/uL ABG pO2 (83-108) mmHg ABG O2 Saturation (94-97) % Sodium (137-145) mmol/L Chloride (98-107) mmol/L Carbon Dioxide (22-30) mmol/L BUN (9-20) mg/dL Creatinine (0.66-1.25) mg/dL Glucose (74-99) mg/dL POC Glucose (mg/dL) 152 H (70-110) mg/dL Calcium (8.4-10.2) mg/dL ALT (4-49) U/L Total Protein (6.3-8.2) g/dL Albumin (3.5-5.0) g/dL Microbiology - Last 24 Hours (Table) 09/23/23 14:10 Blood Culture - Preliminary Blood 09/24/23 05:03 Blood Culture - Preliminary Blood
[2023-09-26 11:55] LABS: Glucose,Whole Blood 119 mg/dL (70-110)
--- NOTE | 2023-09-26 12:31 | P.PN ---
Subjective Progress Note Date: 09/26/23 Principal diagnosis: Acute hypoxic respiratory failure secondary to Legionella pneumonia Patient is a 58-year-old white male with past medical history significant for hypertension, hyperlipidemia, nonocclusive coronary artery disease, and current everyday smoker. I am seeing this patient in the emergency room, after he presented yesterday afternoon with a chief complaint of generalized weakness, fall, shortness of breath and a productive cough. Patient states that starting Tuesday he developed a productive cough with yellow to green sputum. He progressively became more short of breath over the following days. Denies chest pain or hemoptysis. He noticed that he started developing fevers 2 nights ago. He has progressively become more weak. He has had reduced appetite and has not been drinking many oral fluids. He has been having nausea without vomiting. He had a fall yesterday. Denies hitting his head. He states that he more so lowered himself to the floor. States that he should have came in sooner. He is currently sitting in bed, on 3 L/min nasal cannula, he appears dyspneic. He is tachypneic with accessory muscle use. He was noted to be febrile on arrival with a Tmax of 103.3 F, which has been treated with Tylenol.. Chest x-ray demonstrates bilateral infiltrates, greater on the right mid and lower lobes. CBC on arrival demonstrates some leukocytosis with a WBC count of 21.2, otherwise unremarkable. BMP from yesterday has multiple electrolyte abnormalities including: Sodium 123, potassium 3.3, chloride 90, serum bicarb 14, BUN 53, creatinine 6.05, glucose 97. Lactic acid level was elevated at 3.9 and is down to 1.6. Magnesium level 0.9. LFTs mildly elevated. Total bili 1.8. Troponins elevated at 0.102, 0.116, and 0.132 respectively. Negative for influenza, RSV, COVID. Patient has been covered on broad-spectrum antibiotics including vancomycin, Zosyn, and azithromycin. Patient's current respiratory status is labile. On today's evaluation of 09/20/2023, the patient is being seen for a follow-up. Currently, the patient intubated on mechanical ventilator and sedated and paralyzed. This morning, the patient is on a propofol running at 30 mcg/kg/min and the patient is also on fentanyl at 0.3 mcg/kg/h. The patient is on Nimbex at 1 mcg/kg/min. While being on the mechanical ventilator, the patient assist- control mode at a rate of 30, tidal volume of 400, FiO2 is at 90% with a PEEP of 12. Urine output is in order of 20 to 30 cc an hour. Patient remains on norepinephrine running at 0.25 mcg/kg/min and the patient is also on physiologic dose of vasopressin. While on the mechanical ventilator, the peak airway pr essure is around 20, CVP is at 16. The patient was resuscitated with IV fluids and the fluid balance is +4.6 L over the past 24 hours. The blood gas shows a pH of 7.2 with a pCO2 of 45 and a pO2 of 86. Chest x-ray is consistent with bilateral pneumonia. The white cell count today is at 26.8 with a hemoglobin of 11 and a platelet count of 225. Sodium is at 123, potassium level is at 4.2, serum bicarb is at 15, BUN is at 7 6. Creatinine 6.85. The patient total calcium level is at 5.9 and the corrected calcium level is at 7.1. Phosphorus level is at 9.8. LFTs show an bilirubin of 1.2, AST of 420, ALT of 200. The patient remains on a combination of antibiotics including IV cefepime, va ncomycin and Zithromax. I performed a bronchoscopy endobronchial lavage of the right lower lobe. There was purulent respiratory secretions the right lung base that was suctioned out without any major difficulties. Blood cultures are negative thus far. The patient was also started on enteral feeding for nutritional support. Abdominal ultrasound showed normal common bile duct, normal kidneys without evidence of any hydronephrosis. Will on today's evaluation of 09/21/2023, the patient remains intubated on mechanical ventilator. Diagnosed having the Legionella pneumonia and urine antigen was positive. Bronchoscopy was done and the bronchial lavage results are still pending for now. This morning, the patient is on propofol running at 45 mcg/kg/min and the patient is also on fentanyl at 0.5 mcg/kg/h and Nimbex at 2 mcg/kg. Minutes. IV fluids are currently at KVO. Pressors have been off since midnight. The patient is hemodynamically stable. Underwent hemodialysis yesterday with a total of 2 L of ultrafiltration. Another session is in progress this morning. Remains on mechanical ventilator on assist-control mode and the patient is at rate of 30, tidal volume 400, FiO2 of 80% with a PEEP of 15. Blood gas showed pH of 7.42 with a pCO2 of 56 and pO2 of 101. Chest x-ray shows bilateral pulmonary consolidation consistent with pneumonia. Peak airway pressure is around 28. Patient is currently on Nepro at rate of 20 cc an hour. The white cell count of 25.8, hemoglobin 10.7 and a platelet count of 235. Blood gases was noted. Sodium levels at 129, potassium is at 4.2 with a BUN of 69 and creatinine of 6. LFTs are still mildly elevated. Vancomycin was discontinued. Zithromax was discontinued and the patient was started on Levaquin 500 mg every 48 hours. IV cefepime was maintained. 09/23/2023, the patient is being seen in a follow-up. He remains intubated on the mechanical ventilator. This morning, the patient on propofol at 25 mcg/kg/min and fentanyl at 2 mcg/kg/h. He is on assist-control mode of mechanical ventilation at rate of 30, tidal volume of 400, FiO2 50% with a PEEP of 15. Blood gas showed a pH of 7.35 with a pCO2 of 48 and pO2 of 82. The patient is on assist-control mode of mechanical ventilation. The blood gas from todayShows a pH of 7.35 with a pCO2 of 48 and pO2 of 72. Chest x-ray shows no major interval change and the patient continues to have bilateral pulmonary infiltrates and consolidations. The patient remains on cefepime and Levaquin. Note that the patient has been off paralytics for the past 48 hours. He grimaces to painful stimulation. He withdraws to painful stimulation in all 4 extremities. Fluid balance is -300 cc over the past 24 hours. IV fluids ordered for normal saline at rate of 10. Urine output is noted of 10 cc an hour. The patient is undergoing daily hemodialysis. Last hemodialysis session was yesterday a total of 2.5 L of fluid was removed. The patient remains on Nepro at rate of 41 cc an hour. The WBC count is at 16 with a hemoglobin 9.8 and a platelet count of 311. BUN is 77 with a creatinine of 6.2 and a sodium levels at 132 with a potassium level of 4. LFTs continue to improve. Afebrile. Hemodynamically stable on no pressors. No other significant events overnight. On 09/24/2023, the patient is being seen for a follow-up. He is intubated and mechanically ventilated. This morning, he is on a combination of propofol and fentanyl. Propofol is running at 65 mcg and fentanyl is at 2 mcg. He is on assist-control mode of mechanical ventilation at rate of 30, tidal volume of 400, FiO2 of 50% with a PEEP of 15. Blood gases showed pH of 7.34 with a pCO2 of 52 and pO2 of 88. The peak airway pressure is 30, static airway pressure is 28 and the chest x-ray findings are essentially unchanged. Remains on Nepro at 12 cc an hour. Urine output is in the order of 10 to 15 cc and the patient is undergoing daily hemodialysis. He is currently undergoing hemodialysis. He is hemodynamically stable on no pressors. He is afebrile. He is on Rocephin and Levaquin. He is also on IV Solu-Medrol and bronchodilators. No major changes in his condition. 09/25/2023, the patient is being seen for a follow-up. Some improvement in oxygenation compared to yesterday. 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 This morning, he remains on propofol at 25 mcg/kg/min and the patient is also on fentanyl at 2 mcg/kg/h. He is on IV fluids at KVO. Hemodialysis was done yesterday and the patient was ultrafiltrate to a total of 2.5 L. He is currently on assist-control mode of mechanical ventilation at rate of 30, tidal volume of 400, FiO2 40% and PEEP of 14. Blood gas from today shows a pH of 7.39 with a pCO2 of 42 and pO2 of 100. Chest x-ray showed atelectatic changes bilaterally in the left midlung in the right lower lobe. The patient continues to have some infiltration of the lung base bilaterally. ET tube is in a good location. The patient is receiving enteral feeding for nutritional support with Nepro at rate of 12 cc an hour. He is producing adequate amount of stools. WBC count at 22 with a hemoglobin of 9.6 and a platelet count of 342. Rest of the blood work shows a sodium level of 129, BUN of 88 and a creatinine of 5.47 and a potassium level is at 4.7. He remains on Levaquin and Rocephin. He remains on IV Solu-Medrol. He remains on bronchodilators. He remains on sliding scale insulin coverage. He is also on heparin subcu for DVT prophylaxis. Patient was placed today on 09/26/2023, patient remains in the ICU, intubated and mechanically ventilated. Patient is on assist-control rate of 3 0 tidal volume 400 FiO2 40% and PEEP of 12. ABG showed a pO2 of 63 pCO2 41 pH of 7.35, just in the flow rate from 50-65. Maintaining an I: E ratio of at least 1-2. Patient is sedated, he is on propofol and 70 mcg/kg/min he is also on fentanyl at 2 mcg/kg/h, he is receiving Nepro for nutritional support 12/12 mL/h. Patient was intubated on 09/18, remains intubated. He is receiving treatment for his Legionella pneumonia using Levaquin and Rocephin, he is also on bronchodilators for underlying COPD. Arterial line was lost yesterday, and I went ahead and established a new left radial arterial line. Chest x-ray continues to show bilateral infiltrates and left lower lobe atelectasis, positional changes noted bilaterally. WBC count remains high at 26.0, hemoglobin is 9.1. And his bands are 3%. ABG as noted earlier. Basic metabolic profile showed a bit of low sodium of 128, BUN is up to 128 creatinine 6.71. Patient is being followed by nephrology, started on hemodialysis on September 19, urine output is 50 to 60 cc/h, patient is on IV Lasix patient is scheduled to undergo hemodialysis today, and Lasix will be continued intermittently. Patient is also on aranesp as far as COPD is concerned, patient remains on DuoNeb, remains on methylprednisolone 60 every 6, patient is also on GI and DVT prophylaxis. Receiving pantoprazole 40 mg IV push daily, and on heparin subcu 5000 units subcu every 8 hours. Lasix is 80 mg IV push daily Objective - Vital Signs Vital signs: Vital Signs Temp 98.3 F 09/26/23 08:00 Pulse 85 09/26/23 11:59 Resp 30 H 09/26/23 11:00 BP 129/78 09/26/23 11:00 Pulse Ox 97 09/26/23 11:00 FiO2 40 09/26/23 11:57 Intake & Output 09/25/23 09/26/23 09/26/23 18:59 06:59 18:59 Intake Total 808.425 858.984 125 Output Total 445 780 50 Balance 363.425 78.984 75 Weight 91.2 kg 91.2 kg Intake: IV 169 143 13 0.9 NS 130 110 10 CVP 39 33 3 Intake, IV Titration 393.425 493.984 100 Amount fentaNYL (PF). 1,000 mcg 193.425 100 100 In Sodium Chloride 0.9% 80 ml @ 0.5 MCG/KG/HR 4. 196 mls/hr IV .[id number] DANNA Rx#:[id number] propofoL 1,000 mg In 200 393.984 Empty Bag 1 bag @ 15 MCG/ KG/MIN 7.552 mls/hr IV . [id number] DANNA Rx#:[id number] Tube Feeding 156 132 12 Other 90 90 Output: Urine 445 780 50 Other: Voiding Method Indwelling Catheter Indwelling Catheter Indwelling Catheter ABP, PAP, CO, CI - Last Documented Arterial Blood Pressure 127/55 - Exam GENERAL EXAM: Reveals 58-year-old white male, intubated, mechanically ventilated, on propofol and fentanyl. HEAD: Normocephalic and atraumatic endotracheal tube and orogastric tube are intact. EYES: Normal reaction of pupils, equal size. NOSE: Clear with pink turbinates. THROAT: No erythema or exudates. NECK: No masses, no JVD. CHEST: No chest wall deformity. LUNGS: Scattered rhonchi noted bilaterally. Symmetrical chest expansion. CVS: Distant S1-S2, no S3 gallop, no murmur. ABDOMEN: Soft nontender no megaly no rebound no guarding. SKIN: No rashes CENTRAL NERVOUS SYSTEM: Patient is fully sedated, will have an attempt today of assessment of mental status on a lower dose of sedation or off sedation if possible. EXTREMITIES: No clubbing edema or cyanosis - Labs CBC & Chem 7: 09/26/23 05:23 09/26/23 05:23 Labs: Abnormal Lab Results - Last 24 Hours (Table) 09/25/23 09/25/23 09/26/23 Range/Units 17:03 23:43 05:23 WBC 26.0 H (3.8-10.6) k/uL RBC 2.73 L (4.30-5.90) m/uL Hgb 9.1 L (13.0-17.5) gm/dL Hct 25.9 L (39.0-53.0) % Neutrophils # (Manual) 21.30 H (1.3-7.7) k/uL Metamyelocytes # (Man) 1.30 H (0) k/uL Myelocytes # (Manual) 0.78 H (0) k/uL ABG pO2 (83-108) mmHg ABG O2 Saturation (94-97) % Sodium (137-145) mmol/L Chloride (98-107) mmol/L Carbon Dioxide (22-30) mmol/L BUN (9-20) mg/dL Creatinine (0.66-1.25) mg/dL Glucose (74-99) mg/dL POC Glucose (mg/dL) 164 H 139 H (70-110) mg/dL Calcium (8.4-10.2) mg/dL ALT (4-49) U/L Total Protein (6.3-8.2) g/dL Albumin (3.5-5.0) g/dL 09/26/23 09/26/23 09/26/23 Range/Units 05:23 05:38 06:10 WBC (3.8-10.6) k/uL RBC (4.30-5.90) m/uL Hgb (13.0-17.5) gm/dL Hct (39.0-53.0) % Neutrophils # (Manual) (1.3-7.7) k/uL Metamyelocytes # (Man) (0) k/uL Myelocytes # (Manual) (0) k/uL ABG pO2 63 L (83-108) mmHg ABG O2 Saturation 90.4 L (94-97) % Sodium 128 L (137-145) mmol/L Chloride 93 L (98-107) mmol/L Carbon Dioxide 19 L (22-30) mmol/L BUN 128 H* (9-20) mg/dL Creatinine 6.71 H (0.66-1.25) mg/dL Glucose 132 H (74-99) mg/dL POC Glucose (mg/dL) 152 H (70-110) mg/dL Calcium 7.8 L (8.4-10.2) mg/dL ALT 68 H (4-49) U/L Total Protein 5.3 L (6.3-8.2) g/dL Albumin 2.8 L (3.5-5.0) g/dL 09/26/23 Range/Units 11:53 WBC (3.8-10.6) k/uL RBC (4.30-5.90) m/uL Hgb (13.0-17.5) gm/dL Hct (39.0-53.0) % Neutrophils # (Manual) (1.3-7.7) k/uL Metamyelocytes # (Man) (0) k/uL Myelocytes # (Manual) (0) k/uL ABG pO2 (83-108) mmHg ABG O2 Saturation (94-97) % Sodium (137-145) mmol/L Chloride (98-107) mmol/L Carbon Dioxide (22-30) mmol/L BUN (9-20) mg/dL Creatinine (0.66-1.25) mg/dL Glucose (74-99) mg/dL POC Glucose (mg/dL) 119 H (70-110) mg/dL Calcium (8.4-10.2) mg/dL ALT (4-49) U/L Total Protein (6.3-8.2) g/dL Albumin (3.5-5.0) g/dL Microbiology - Last 24 Hours (Table) 09/23/23 14:10 Blood Culture - Preliminary Blood 09/24/23 05:03 Blood Culture - Preliminary Blood Assessment and Plan Assessment: Impression: Acute hypoxic respiratory failure secondary to multilobar pneumonia secondary to Legionella pneumonia patient was intubated on 09/18, underwent bronchoscopy and lavage, urine Legionella antigen is positive, patient is maintained on Rocephin and on Levaquin. Remains intubated and mechanically ventilated. Septic shock, however patient is now off pressors. Acute exacerbation of COPD Severe dehydration on his initial presentation requiring fluid resuscitation. Acute kidney injury secondary to above/secondary to acute tubular necrosis and severe dehydration and sepsis on his initial presentation Acute transaminitis secondary to sepsis Benign essential hypertension Dyslipidemia Coronary artery disease [id number] smoking history, continues to smoke Recommendation: Continue ventilatory support, will likely start addressing cutting down on the PEEP once his oxygenation improves. Continue antibiotics for his underlying pneumonia presently on Levaquin and Rocephin Continue nutritional support, patient is presently on Nepro Continue hemodialysis as per nephrology Continue DVT prophylaxis, on subcu heparin Continue GI prophylaxis, on Protonix Continue bronchodilators Continue steroids/Solu-Medrol Keep fluids at KVO patient is requiring hemodialysis as per nephrology Daily interruption or at least cutting down on the sedation to be able to assess mental status although patient is not quite ready for weaning or extubation at this point. Patient remains critically ill Critical care time is over 30 minutes, not including the time spent on procedures. Time with Patient: Greater than 30
[2023-09-26 12:46] LABS: ANA Pattern Speckled
--- NOTE | 2023-09-26 13:08 | OP ---
OPERATIVE REPORT DATE OF SERVICE : PROCEDURE PERFORMED: Placement of a left radial arterial line. PREOPERATIVE DIAGNOSES: Acute hypoxic respiratory failure secondary to Legionella pneumonia and chronic obstructive pulmonary disease exacerbation. POSTOPERATIVE DIAGNOSES: Acute hypoxic respiratory failure secondary to Legionella pneumonia and chronic obstructive pulmonary disease exacerbation. ANESTHESIA USED: None deployed. DESCRIPTION OF PROCEDURE: The patient was placed in a supine position, the left wrist was prepared in a sterile fashion. Drapes were applied. The left radial artery was palpated, easily cannulated using an Arrow kit. As the left radial artery was cannulated, a wire was extended out of the kit into the radial artery, and over the wire, I was able to pass the catheter until fully inserted, and the wire was removed along with the rest of the kit. Good blood flow, good waveform, line was secured using 3.0 silk sutures, no complications. MMODL / IJN: [id number] /
[2023-09-26] MEDS: CLEVIDIPINE BUTYRATE 25 MG in EMPTY BAG 1 BAG IV SCH (15:06)
[2023-09-26 17:40] LABS: Glucose,Whole Blood 194 mg/dL (70-110)
--- NOTE | 2023-09-26 19:00 | P.PN ---
Subjective Progress Note Date: 09/25/23 Principal diagnosis: Reason for follow-up is pneumonia and sepsis Patient is a 58-year-old male with a past medical history significant for hypertension ID current everyday smoker presenting to the hospital for evaluation of increasing shortness of breath patient got intubated because of worsening respiratory status was noted to be septic secondary to pneumonia with evidence of right middle lobe infiltrate and urine for Legionella antigen came back positive. On today's evaluation that is 09/25/2023,the patient remains to be afebrile, patient is on the vent FiO2 at 40% no significant purulent secretions through the ET or any diarrhea reported by the nursing staff Patient white count is 22.1, creatinine is 5.47 Objective - Vital Signs Vital signs: Vital Signs Temp 98.7 F 09/25/23 16:00 Pulse 93 09/25/23 16:00 Resp 35 H 09/25/23 16:00 BP 158/92 09/25/23 16:00 Pulse Ox 96 09/25/23 16:00 FiO2 40 09/25/23 16:00 Intake & Output 09/24/23 09/25/23 09/25/23 18:59 06:59 18:59 Intake Total 1429.969 814.179 690 Output Total 3090 260 410 Balance -1660.031 554.179 280 Weight 95.073 kg Intake: IV 206 156 156 0.9 NS 120 120 120 CVP 36 36 36 cefTRIAXone 2 gm In 50 Sodium Chloride 0.9% 50 ml @ 100 mls/hr IVPB Q24HR [facility]AN[facility] Rx#:[id number] Intake, IV Titration 579.969 436.179 300 Amount fentaNYL (PF). 1,000 mcg 193.425 200 100 In Sodium Chloride 0.9% 80 ml @ 0.5 MCG/KG/HR 4. 196 mls/hr IV .[id number] [facility]ANNA Rx#:[id number] propofoL 1,000 mg In 386.544 236.179 200 Empty Bag 1 bag @ 15 MCG/ KG/MIN 7.552 mls/hr IV . [id number] DANNA Rx#:[id number] Tube Feeding 144 132 144 Hemodialysis 500 Other 90 90 Output: Urine 90 260 410 Hemodialysis 3000 Other: Voiding Method Indwelling Catheter Indwelling Catheter Indwelling Catheter ABP, PAP, CO, CI - Last Documented Arterial Blood Pressure 92/87 - Exam GENERAL DESCRIPTION: Middle-age male intubated on the vent RESPIRATORY SYSTEM: Unlabored breathing , decreased breath sounds at bases HEART: S1 S2 regular rate and rhythm , ABDOMEN: Soft , no tenderness EXTREMITIES: No edema feet - Labs CBC & Chem 7: 09/26/23 05:23 09/26/23 05:23 Labs: Abnormal Lab Results - Last 24 Hours (Table) 09/24/23 09/25/23 09/25/23 Range/Units 23:29 05:18 05:18 WBC 22.1 H (3.8-10.6) k/uL RBC 2.95 L (4.30-5.90) m/uL Hgb 9.6 L (13.0-17.5) gm/dL Hct 28.2 L (39.0-53.0) % Neutrophils # (Manual) 18.30 H (1.3-7.7) k/uL Lymphocytes # (Manual) 0.66 L (1.0-4.8) k/uL Metamyelocytes # (Man) 1.11 H (0) k/uL Myelocytes # (Manual) 1.77 H (0) k/uL ABG HCO3 (21-25) mmol/L ABG Total CO2 (19-24) mmol/L ABG O2 Saturation (94-97) % Sodium 129 L (137-145) mmol/L Chloride 92 L (98-107) mmol/L BUN 88 H (9-20) mg/dL Creatinine 5.47 H (0.66-1.25) mg/dL Glucose 151 H (74-99) mg/dL POC Glucose (mg/dL) 147 H (70-110) mg/dL Calcium 7.7 L (8.4-10.2) mg/dL 09/25/23 09/25/23 09/25/23 Range/Units 05:31 05:40 11:40 WBC (3.8-10.6) k/uL RBC (4.30-5.90) m/uL Hgb (13.0-17.5) gm/dL Hct (39.0-53.0) % Neutrophils # (Manual) (1.3-7.7) k/uL Lymphocytes # (Manual) (1.0-4.8) k/uL Metamyelocytes # (Man) (0) k/uL Myelocytes # (Manual) (0) k/uL ABG HCO3 26 H (21-25) mmol/L ABG Total CO2 27 H (19-24) mmol/L ABG O2 Saturation 97.5 H (94-97) % Sodium (137-145) mmol/L Chloride (98-107) mmol/L BUN (9-20) mg/dL Creatinine (0.66-1.25) mg/dL Glucose (74-99) mg/dL POC Glucose (mg/dL) 162 H 147 H (70-110) mg/dL Calcium (8.4-10.2) mg/dL 09/25/23 Range/Units 17:03 WBC (3.8-10.6) k/uL RBC (4.30-5.90) m/uL Hgb (13.0-17.5) gm/dL Hct (39.0-53.0) % Neutrophils # (Manual) (1.3-7.7) k/uL Lymphocytes # (Manual) (1.0-4.8) k/uL Metamyelocytes # (Man) (0) k/uL Myelocytes # (Manual) (0) k/uL ABG HCO3 (21-25) mmol/L ABG Total CO2 (19-24) mmol/L ABG O2 Saturation (94-97) % Sodium (137-145) mmol/L Chloride (98-107) mmol/L BUN (9-20) mg/dL Creatinine (0.66-1.25) mg/dL Glucose (74-99) mg/dL POC Glucose (mg/dL) 164 H (70-110) mg/dL Calcium (8.4-10.2) mg/dL Microbiology - Last 24 Hours (Table) 09/24/23 05:03 Blood Culture - Preliminary Blood 09/23/23 14:10 Blood Culture - Preliminary Blood Assessment and Plan (1) Legionella pneumonia Current Visit: Yes Status: Acute Code(s): A48.1 - LEGIONNAIRES' DISEASE SNOMED Code(s): 300862831 (2) Bacteremia Current Visit: Yes Status: Acute Code(s): R78.81 - BACTEREMIA SNOMED Code(s): 2869791 (3) Pneumonia Current Visit: Yes Status: Acute Code(s): J18.9 - PNEUMONIA, UNSPECIFIED ORGANISM SNOMED Code(s): 040538802 Plan: 1patient presented hospital with sepsis in this patient who did have fever tachycardia elevated white count, in this patient with evidence of pneumonia and urine tested positive for Legionella antigen more likely etiology of the sepsis and pneumonia 2 patient did have a positive blood culture with a strep species which has been finalized as strep viridans possible contamination repeat blood cultures are pending, patient is currently covered with the Rocephin 2 g daily anyway 3-patient to a continue with the Levaquin for his underlying Legionella pneumonia to continue Dictation was produced using [facility] dictation software. please excuse any grammatical, word or spelling errors. Time with Patient: Less than 30
--- NOTE | 2023-09-26 19:01 | P.PN ---
Subjective Progress Note Date: 09/26/23 Principal diagnosis: Reason for follow-up is pneumonia and sepsis Patient is a 58-year-old male with a past medical history significant for hypertension [place] current everyday smoker presenting to the hospital for evaluation of increasing shortness of breath patient got intubated because of worsening respiratory status was noted to be septic secondary to pneumonia with evidence of right middle lobe infiltrate and urine for Legionella antigen came back positive. On today's evaluation that is 09/26/2023, the patient continues to be afebrile, the patient is on intubated on the vent FiO2 is stable at 40% patient undergoing dialysis hemodynamically stable no significant purulent secretions bradycardia or any changes reported by the nursing staff Patient white count is 26,000 creatinine is 6.7, BAL with Farzana Objective - Vital Signs Vital signs: Vital Signs Temp 98.3 F 09/26/23 08:00 Pulse 85 09/26/23 11:59 Resp 30 H 09/26/23 11:00 BP 129/78 09/26/23 11:00 Pulse Ox 97 09/26/23 11:00 FiO2 40 09/26/23 11:57 Intake & Output 09/25/23 09/26/23 09/26/23 18:59 06:59 18:59 Intake Total 808.425 858.984 225 Output Total 445 780 50 Balance 363.425 78.984 175 Weight 91.2 kg 91.2 kg Intake: IV 169 143 13 0.9 NS 130 110 10 CVP 39 33 3 Intake, IV Titration 393.425 493.984 200 Amount fentaNYL (PF). 1,000 mcg 193.425 100 100 In Sodium Chloride 0.9% 80 ml @ 0.5 MCG/KG/HR 4. 196 mls/hr IV .[id number] [facility] Rx#:[id number] propofoL 1,000 mg In 200 393.984 100 Empty Bag 1 bag @ 15 MCG/ KG/MIN 7.552 mls/hr IV . [id number] DAN[facility] Rx#:[id number] Tube Feeding 156 132 12 Other 90 90 Output: Urine 445 780 50 Other: Voiding Method Indwelling Catheter Indwelling Catheter Indwelling Catheter ABP, PAP, CO, CI - Last Documented Arterial Blood Pressure 127/55 - Exam GENERAL DESCRIPTION: Middle-age male intubated on the vent RESPIRATORY SYSTEM: Unlabored breathing , decreased breath sounds at bases HEART: S1 S2 regular rate and rhythm , ABDOMEN: Soft , no tenderness EXTREMITIES: No edema feet - Labs CBC & Chem 7: 09/26/23 05:23 09/26/23 05:23 Labs: Abnormal Lab Results - Last 24 Hours (Table) 09/25/23 09/25/23 09/26/23 Range/Units 17:03 23:43 05:23 WBC 26.0 H (3.8-10.6) k/uL RBC 2.73 L (4.30-5.90) m/uL Hgb 9.1 L (13.0-17.5) gm/dL Hct 25.9 L (39.0-53.0) % Neutrophils # (Manual) 21.30 H (1.3-7.7) k/uL Metamyelocytes # (Man) 1.30 H (0) k/uL Myelocytes # (Manual) 0.78 H (0) k/uL ABG pO2 (83-108) mmHg ABG O2 Saturation (94-97) % Sodium (137-145) mmol/L Chloride (98-107) mmol/L Carbon Dioxide (22-30) mmol/L BUN (9-20) mg/dL Creatinine (0.66-1.25) mg/dL Glucose (74-99) mg/dL POC Glucose (mg/dL) 164 H 139 H (70-110) mg/dL Calcium (8.4-10.2) mg/dL ALT (4-49) U/L Total Protein (6.3-8.2) g/dL Albumin (3.5-5.0) g/dL 09/26/23 09/26/23 09/26/23 Range/Units 05:23 05:38 06:10 WBC (3.8-10.6) k/uL RBC (4.30-5.90) m/uL Hgb (13.0-17.5) gm/dL Hct (39.0-53.0) % Neutrophils # (Manual) (1.3-7.7) k/uL Metamyelocytes # (Man) (0) k/uL Myelocytes # (Manual) (0) k/uL ABG pO2 63 L (83-108) mmHg ABG O2 Saturation 90.4 L (94-97) % Sodium 128 L (137-145) mmol/L Chloride 93 L (98-107) mmol/L Carbon Dioxide 19 L (22-30) mmol/L BUN 128 H* (9-20) mg/dL Creatinine 6.71 H (0.66-1.25) mg/dL Glucose 132 H (74-99) mg/dL POC Glucose (mg/dL) 152 H (70-110) mg/dL Calcium 7.8 L (8.4-10.2) mg/dL ALT 68 H (4-49) U/L Total Protein 5.3 L (6.3-8.2) g/dL Albumin 2.8 L (3.5-5.0) g/dL 09/26/23 Range/Units 11:53 WBC (3.8-10.6) k/uL RBC (4.30-5.90) m/uL Hgb (13.0-17.5) gm/dL Hct (39.0-53.0) % Neutrophils # (Manual) (1.3-7.7) k/uL Metamyelocytes # (Man) (0) k/uL Myelocytes # (Manual) (0) k/uL ABG pO2 (83-108) mmHg ABG O2 Saturation (94-97) % Sodium (137-145) mmol/L Chloride (98-107) mmol/L Carbon Dioxide (22-30) mmol/L BUN (9-20) mg/dL Creatinine (0.66-1.25) mg/dL Glucose (74-99) mg/dL POC Glucose (mg/dL) 119 H (70-110) mg/dL Calcium (8.4-10.2) mg/dL ALT (4-49) U/L Total Protein (6.3-8.2) g/dL Albumin (3.5-5.0) g/dL Microbiology - Last 24 Hours (Table) 09/23/23 14:10 Blood Culture - Preliminary Blood 09/24/23 05:03 Blood Culture - Preliminary Blood Assessment and Plan (1) Legionella pneumonia Current Visit: Yes Status: Acute Code(s): A48.1 - LEGIONNAIRES' DISEASE SNOMED Code(s): 346632318 (2) Bacteremia Current Visit: Yes Status: Acute Code(s): R78.81 - BACTEREMIA SNOMED Code(s): 2883259 (3) Pneumonia Current Visit: Yes Status: Acute Code(s): J18.9 - PNEUMONIA, UNSPECIFIED ORGANISM SNOMED Code(s): 051016638 (4) Leukocytosis Current Visit: Yes Status: Acute Code(s): D72.829 - ELEVATED WHITE BLOOD CELL COUNT, UNSPECIFIED SNOMED Code(s): 206289445 Plan: 1patient presented hospital with sepsis in this patient who did have fever tachycardia elevated white count, in this patient with evidence of pneumonia and urine tested positive for Legionella antigen more likely etiology of the sepsis and pneumonia 2 patient did have a positive blood culture with a strep species which has been finalized as strep viridans possible contamination repeat blood cultures are pending, patient is currently covered with the Rocephin 2 g daily anyway 3-patient to a continue with the Levaquin for his underlying Legionella pneumonia 4-leukocytosis more likely steroid related we will watch white count closely check inflammatory markers with a.m. lab Dictation was produced using [employer] dictation software. please excuse any grammatical, word or spelling errors. Time with Patient: Less than 30
[2023-09-26 23:29] LABS: Glucose,Whole Blood 166 mg/dL (70-110)
[2023-09-27 04:26] LABS: Anion Gap 15 mmol/L; Blood Urea Nitrogen 99 mg/dL (9-20); Calcium 7.7 mg/dL (8.4-10.2); Carbon Dioxide 22 mmol/L (22-30); Chloride 93 mmol/L (98-107); Glucose 158 mg/dL (74-99); Potassium 4.6 mmol/L (3.5-5.1); Sodium 130 mmol/L (137-145)
[2023-09-27 04:27] LABS: HCT 26.2 % (39.0-53.0); MCH 32.6 pg (25.0-35.0); MCHC 34.2 g/dL (31.0-37.0); MCV 95.3 fL (80.0-100.0); Mean Platelet Volume 8.7; Platelet Count 394 k/uL (150-450); RBC 2.75 m/uL (4.30-5.90); RDW 14.7 % (11.5-15.5); WBC 23.9 k/uL (3.8-10.6)
[2023-09-27 05:11] LABS: ABG HCO3 24 mmol/L (21-25); ABG Oxygen Saturation 98.4 % (94-97); ABG PCO2 42 mmHg (35-45); ABG PH 7.37 (7.35-7.45); ABG PO2 120 mmHg (83-108); ABG TCO2 26 mmol/L (19-24); Allen Test Performed? Yes
[2023-09-27 05:29] LABS: Glucose,Whole Blood 155 mg/dL (70-110)
[2023-09-27 05:54] LABS: African American GFR (CKD) 13 (>60 ml/min/1.73 sqM); Non-African American GFR(CKD) 11 (>60 ml/min/1.73 sqM)
--- NOTE | 2023-09-27 07:12 | XR ---
EXAMINATION TYPE: XR chest 1V portable DATE OF EXAM: 09/27/2023 Comparison: 09/26/2023 Clinical History: 58-year-old male shortness of breath Findings: ET and NG tubes are satisfactory. Patchy bilateral interstitial opacities persist. More focal left ba silar opacity also persists. Left subclavian CVC tip in the lower SVC. Impression: Similar bilateral patchy interstitial infiltrates.
[2023-09-27 08:02] LABS: Band Neutrophils % 5 %; Lymphocytes # (M) 0.72 k/uL (1.0-4.8); Metamyelocytes # (M) 0.72 k/uL (0); Metamyelocytes % 3 %; Monocytes # (M) 1.43 k/uL (0-1.0); Myelocytes # (M) 0.72 k/uL (0); Myelocytes % 3 %; Neutrophils % (M) 82 %; Nucleated Red Blood Cells 0 /100 WBC (0-0); Total Cells Counted 200
--- NOTE | 2023-09-27 09:49 | P.PN ---
Subjective Patient is seen in follow-up for acute kidney injury. Started on hemodialysis September 20, 2023. Intubated. Off vasopressors. On IV Lasix. Urine output 40 to 50 cc an hour. Tolerated 3 L ultrafiltration yesterday. Vital signs are stable. General: Resting in bed. HEENT: Intubated. LUNGS: Scattered rhonchi. HEART: Rate and Rhythm are regular. ABDOMEN: No distention. EXTREMITITES: 1+ edema. Objective - Vital Signs Vital signs: Vital Signs Temp 97.9 F 09/27/23 04:00 Pulse 84 09/27/23 08:40 Resp 31 H 09/27/23 08:40 BP 124/69 09/27/23 07:00 Pulse Ox 98 09/27/23 07:00 FiO2 40 09/27/23 07:44 Intake & Output 09/26/23 09/27/23 09/27/23 18:59 06:59 18:59 Intake Total 3957.437 9239.211 141 Output Total 3825 440 40 Balance -2512.627 572.211 101 Weight 91.2 kg 91 kg Intake: IV 290 312 26 0.9 NS 237 312 26 CVP 3 cefTRIAXone 2 gm In 50 Sodium Chloride 0.9% 50 ml @ 100 mls/hr IVPB Q24HR [facility] Rx#:[id number] Intake, IV Titration 510.373 445.211 100 Amount Clevidipine Butyrate 25 59.366 0.267 mg In Empty Bag 1 bag @ 1 MG/HR 2 mls/hr IV .Q24H [facility] Rx#:[id number] fentaNYL (PF). 1,000 mcg 208.812 91.188 In Sodium Chloride 0.9% 80 ml @ 0.5 MCG/KG/HR 4. 196 mls/hr IV .[id number] [facility] Rx#:[id number] propofoL 1,000 mg In 242.195 353.756 100 Empty Bag 1 bag @ 15 MCG/ KG/MIN 7.552 mls/hr IV . [id number] [facility] Rx#:[id number] Tube Feeding 12 165 15 Hemodialysis 500 Other 90 Output: Urine 325 440 40 Hemodialysis 3500 Other: Voiding Method Indwelling Catheter Indwelling Catheter # Bowel Movements 1 ABP, PAP, CO, CI - Last Documented Arterial Blood Pressure 136/60 - Labs CBC & Chem 7: 09/27/23 03:52 09/27/23 03:52 Labs: Abnormal Lab Results - Last 24 Hours (Table) 09/26/23 09/26/23 09/26/23 Range/Units 11:53 17:38 23:28 WBC (3.8-10.6) k/uL RBC (4.30-5.90) m/uL Hgb (13.0-17.5) gm/dL Hct (39.0-53.0) % Neutrophils # (Manual) (1.3-7.7) k/uL Lymphocytes # (Manual) (1.0-4.8) k/uL Monocytes # (Manual) (0-1.0) k/uL Metamyelocytes # (Man) (0) k/uL Myelocytes # (Manual) (0) k/uL ABG pO2 (83-108) mmHg ABG Total CO2 (19-24) mmol/L ABG O2 Saturation (94-97) % Sodium (137-145) mmol/L Chloride (98-107) mmol/L BUN (9-20) mg/dL Creatinine (0.66-1.25) mg/dL Glucose (74-99) mg/dL POC Glucose (mg/dL) 119 H 194 H 166 H (70-110) mg/dL Calcium (8.4-10.2) mg/dL C-Reactive Protein (<1.0) mg/dL Procalcitonin (0.02-0.09) ng/mL 09/27/23 09/27/23 09/27/23 Range/Units 03:52 03:52 03:52 WBC 23.9 H (3.8-10.6) k/uL RBC 2.75 L (4.30-5.90) m/uL Hgb 9.0 L (13.0-17.5) gm/dL Hct 26.2 L (39.0-53.0) % Neutrophils # (Manual) 20.70 H (1.3-7.7) k/uL Lymphocytes # (Manual) 0.72 L (1.0-4.8) k/uL Monocytes # (Manual) 1.43 H (0-1.0) k/uL Metamyelocytes # (Man) 0.72 H (0) k/uL Myelocytes # (Manual) 0.72 H (0) k/uL ABG pO2 (83-108) mmHg ABG Total CO2 (19-24) mmol/L ABG O2 Saturation (94-97) % Sodium 130 L (137-145) mmol/L Chloride 93 L (98-107) mmol/L BUN 99 H (9-20) mg/dL Creatinine 5.13 H (0.66-1.25) mg/dL Glucose 158 H (74-99) mg/dL POC Glucose (mg/dL) (70-110) mg/dL Calcium 7.7 L (8.4-10.2) mg/dL C-Reactive Protein 3.0 H (<1.0) mg/dL Procalcitonin 1.72 H (0.02-0.09) ng/mL 09/27/23 09/27/23 Range/Units 05:04 05:27 WBC (3.8-10.6) k/uL RBC (4.30-5.90) m/uL Hgb (13.0-17.5) gm/dL Hct (39.0-53.0) % Neutrophils # (Manual) (1.3-7.7) k/uL Lymphocytes # (Manual) (1.0-4.8) k/uL Monocytes # (Manual) (0-1.0) k/uL Metamyelocytes # (Man) (0) k/uL Myelocytes # (Manual) (0) k/uL ABG pO2 120 H (83-108) mmHg ABG Total CO2 26 H (19-24) mmol/L ABG O2 Saturation 98.4 H (94-97) % Sodium (137-145) mmol/L Chloride (98-107) mmol/L BUN (9-20) mg/dL Creatinine (0.66-1.25) mg/dL Glucose (74-99) mg/dL POC Glucose (mg/dL) 155 H (70-110) mg/dL Calcium (8.4-10.2) mg/dL C-Reactive Protein (<1.0) mg/dL Procalcitonin (0.02-0.09) ng/mL Microbiology - Last 24 Hours (Table) 09/23/23 14:10 Blood Culture - Preliminary Blood 09/22/23 23:00 Legionella Culture - Preliminary Sputum 09/24/23 05:03 Blood Culture - Preliminary Blood Assessment and Plan Plan: Assessment: 1. Acute kidney injury secondary to ATN secondary to septic shock. Creatinine 0.8-0.9 in March 2023. This admission creatinine was near 6 with no improvement. Started on hemodialysis September 20, 2023. Has right femoral catheter. No hydronephrosis noted on imaging. On IV Lasix. Urine output 30 to 50 cc an hour. Elevated BUN partially due to steroids. 2. Septic shock secondary to pneumonia maintained on antibiotics. Urine Legionella antigen positive. 3. Acute hypoxic respiratory failure. On 40% FiO2. 4. Hypervolemic hyponatremia. 5. Volume overload. Improving with ultrafiltration. 6. Metabolic acidosis secondary to acute kidney injury. Improved. 7. Hyperphosphatemia secondary to acute kidney injury. On PhosLo. Plan: Hemodialysis tomorrow. Receiving tube feeds. Wean FiO2. Avoid nephrotoxins. Monitor for renal recovery. Maintain IV Lasix. Serologies negative except for positive ROE. Maintain Aranesp.
--- NOTE | 2023-09-27 11:17 | P.PN ---
Subjective Progress Note Date: 09/27/23 Hospital Course: 58-year-old male with history of hypertension, dyslipidemia, coronary artery d isease presenting with shortness of breath. In the ED, temperature was 103.3, pulse 131, respiratory rate 30, blood pressure 118/86, saturating 88% on room air. WBC 21.2, hemoglobin 13, pH 7.41, pCO2 33, sodium 122, potassium 3.4, bicarb 18, anion gap 20, creatinine 5.94, lactic acid 3.9, magnesium 0.9, total bili 1.8, AST 110, ALT 53, ALP 105, troponin 0.102. Respiratory viral panel negative. Chest x-ray shows multifocal pneumonia right lower lobe greater than left. EKG shows sinus tachycardia with right bundle you block. Pelvic x-ray shows no acute process. Head CT shows no acute process. Pulmonology, nephrology, cardiology consulted. Respiratory function progressively worsening despite being on broad-spectrum antibiotics. Patient is was subsequently intubated, on vasopressors. Troponin mildly elevated 0.102, 0.116, 0.132. Cardiology consulted, Echo EF 50-55% with no regional wall motion abnormalities, likely Type II [place]. Right femoral HD catheter inserted 09/19, daily HD ordered by Nephrology. He underwent bronchoscopy with lavage on 09/19 with significant purulence noted in the RLL. Legionella Ag +, maintained on ceftriaxone and Levaquin. Vasopressin and Levophed weaned off 09/20. Remains sedated. Still on mechanical ventilated. Continue to be on dialysis. Subjective: Seen and examined at bedside. No acute events overnight. Remains intubated. No pressors. On propofol and fentanyl for sedation. Having adequate urine output. Was tried on sedation holiday yesterday, became tachypneic and hypoxic, but was able to follow some commands after prolonged sedation holiday. Pertinent positives and negatives as discussed above, a complete review of systems was performed and all other systems are negative. Vitals Signs Reviewed. General: Intubated sedated Derm: Warm, dry Head: Atraumatic, normocephalic, symmetric Eyes: Pupils equal and reactive Mouth: No lip lesion, mucus membranes moist Cardiovascular: S1S2 reg, no murmur Lungs: Bilateral rhonchi, no accessory muscle use, mechanically ventilated Abdominal: Soft, nondistended, no guarding, no appreciable organomegaly Ext: No gross muscle atrophy, no edema, no contractures Neuro: Sedated Psych: Unable to assess Data Reviewed Today: Pertinent Labs: WBC 23.9, hemoglobin 9, sodium 130, creatinine 5.13, procalcitonin 1.72, glucose range between 1 55-1 66, pH 7.37, pCO2 42 Imaging: Chest x-ray independently interpreted, shows persistent bilateral multifocal opacities similar to yesterday Assessment and Plan: Patient is critically ill, prognosis guarded. Acute hypoxic respiratory failure Septic shock due to Legionella pneumonia Strep viridans bacteremia -Continue ceftriaxone 2 g IV every 24 hours, levofloxacin 500 IV every 48 hours -Continue DuoNeb every 4 hours, Solu-Medrol decreased to 40 IV every 8 hours, monitor blood sugars, on sliding scale insulin -ID following -BAL positive for Farzana albicans -Pulmonology managing vent settings -Off of vasopressors -Consider further sedation holiday, continue to wean sedation Acute kidney injury, on hemodialysis Hyperphosphatemia Microcytic anemia Hypertension Hypervolemic hyponatremia Hypocalcemia -Continue to hold lisinopril and hydrochlorothiazide -Discussed management with nephrology, may need exchange of dialysis catheter, maintain IV Lasix 80 daily, continue PhosLo 3 times daily, darbepoetin weekly, continue dialysis -On hydralazine 50 3 times daily, IV hydralazine as needed, Cleviprex IV per pulmonology -Repeat BMP, CBC tomorrow -Also on calcium carbonate 500 3 times daily Likely EtOH withdrawal -Ativan PRN per CIWA scale Troponin elevation, Type II [place] History of CAD -Plavix 75 mg PO QD. Metoprolol 25 mg PO BID. -Continue atorvastatin 80 daily Transaminitis -Abd US intermediate legion in the right hepatic lobe, MRI recommended. CBD within normal limits. DVT ppx: Subcu heparin Code status: Full code Anticipated discharge place: Pending clinical course Anticipated discharge time: Pending clinical course Objective - Vital Signs Vital signs: Vital Signs Temp 98.1 F 09/27/23 08:00 Pulse 83 09/27/23 11:14 Resp 32 H 09/27/23 11:14 BP 129/74 09/27/23 10:00 Pulse Ox 96 09/27/23 10:00 FiO2 40 09/27/23 11:05 Intake & Output 05/06/24 05/07/24 05/07/24 18:59 06:59 18:59 Intake Total 5966.832 3333.211 440.831 Output Total 3825 440 175 Balance -2512.627 572.211 265.831 Weight 91.2 kg 91 kg Intake: IV 290 312 154 0.9 NS 237 312 104 CVP 3 cefTRIAXone 2 gm In 50 50 Sodium Chloride 0.9% 50 ml @ 100 mls/hr IVPB Q24HR [facility] Rx#:[id number] Intake, IV Titration 510.373 445.211 271.831 Amount Clevidipine Butyrate 25 59.366 0.267 mg In Empty Bag 1 bag @ 1 MG/HR 2 mls/hr IV .Q24H [facility] Rx#:[id number] fentaNYL (PF). 1,000 mcg 208.812 91.188 100 In Sodium Chloride 0.9% 80 ml @ 0.5 MCG/KG/HR 4. 196 mls/hr IV .[id number] [facility] Rx#:[id number] propofoL 1,000 mg In 242.195 353.756 171.831 Empty Bag 1 bag @ 15 MCG/ KG/MIN 7.552 mls/hr IV . [id number] [facility] Rx#:[id number] Tube Feeding 12 165 15 Hemodialysis 500 Other 90 Output: Urine 325 440 175 Hemodialysis 3500 Other: Voiding Method Indwelling Catheter Indwelling Catheter Indwelling Catheter # Bowel Movements 1 ABP, PAP, CO, CI - Last Documented Arterial Blood Pressure 124/53 - Labs CBC & Chem 7: 09/27/23 03:52 09/27/23 03:52 Labs: Abnormal Lab Results - Last 24 Hours (Table) 09/26/23 09/26/23 09/26/23 Range/Units 11:53 17:38 23:28 WBC (3.8-10.6) k/uL RBC (4.30-5.90) m/uL Hgb (13.0-17.5) gm/dL Hct (39.0-53.0) % Neutrophils # (Manual) (1.3-7.7) k/uL Lymphocytes # (Manual) (1.0-4.8) k/uL Monocytes # (Manual) (0-1.0) k/uL Metamyelocytes # (Man) (0) k/uL Myelocytes # (Manual) (0) k/uL ABG pO2 (83-108) mmHg ABG Total CO2 (19-24) mmol/L ABG O2 Saturation (94-97) % Sodium (137-145) mmol/L Chloride (98-107) mmol/L BUN (9-20) mg/dL Creatinine (0.66-1.25) mg/dL Glucose (74-99) mg/dL POC Glucose (mg/dL) 119 H 194 H 166 H (70-110) mg/dL Calcium (8.4-10.2) mg/dL C-Reactive Protein (<1.0) mg/dL Procalcitonin (0.02-0.09) ng/mL 09/27/23 09/27/23 09/27/23 Range/Units 03:52 03:52 03:52 WBC 23.9 H (3.8-10.6) k/uL RBC 2.75 L (4.30-5.90) m/uL Hgb 9.0 L (13.0-17.5) gm/dL Hct 26.2 L (39.0-53.0) % Neutrophils # (Manual) 20.70 H (1.3-7.7) k/uL Lymphocytes # (Manual) 0.72 L (1.0-4.8) k/uL Monocytes # (Manual) 1.43 H (0-1.0) k/uL Metamyelocytes # (Man) 0.72 H (0) k/uL Myelocytes # (Manual) 0.72 H (0) k/uL ABG pO2 (83-108) mmHg ABG Total CO2 (19-24) mmol/L ABG O2 Saturation (94-97) % Sodium 130 L (137-145) mmol/L Chloride 93 L (98-107) mmol/L BUN 99 H (9-20) mg/dL Creatinine 5.13 H (0.66-1.25) mg/dL Glucose 158 H (74-99) mg/dL POC Glucose (mg/dL) (70-110) mg/dL Calcium 7.7 L (8.4-10.2) mg/dL C-Reactive Protein 3.0 H (<1.0) mg/dL Procalcitonin 1.72 H (0.02-0.09) ng/mL 09/27/23 09/27/23 Range/Units 05:04 05:27 WBC (3.8-10.6) k/uL RBC (4.30-5.90) m/uL Hgb (13.0-17.5) gm/dL Hct (39.0-53.0) % Neutrophils # (Manual) (1.3-7.7) k/uL Lymphocytes # (Manual) (1.0-4.8) k/uL Monocytes # (Manual) (0-1.0) k/uL Metamyelocytes # (Man) (0) k/uL Myelocytes # (Manual) (0) k/uL ABG pO2 120 H (83-108) mmHg ABG Total CO2 26 H (19-24) mmol/L ABG O2 Saturation 98.4 H (94-97) % Sodium (137-145) mmol/L Chloride (98-107) mmol/L BUN (9-20) mg/dL Creatinine (0.66-1.25) mg/dL Glucose (74-99) mg/dL POC Glucose (mg/dL) 155 H (70-110) mg/dL Calcium (8.4-10.2) mg/dL C-Reactive Protein (<1.0) mg/dL Procalcitonin (0.02-0.09) ng/mL Microbiology - Last 24 Hours (Table) 09/23/23 14:10 Blood Culture - Preliminary Blood 09/22/23 23:00 Legionella Culture - Preliminary Sputum 09/24/23 05:03 Blood Culture - Preliminary Blood
[2023-09-27 11:50] LABS: Glucose,Whole Blood 161 mg/dL (70-110)
--- NOTE | 2023-09-27 12:57 | P.PN ---
Subjective Progress Note Date: 09/27/23 Principal diagnosis: Acute hypoxic respiratory failure secondary to Legionella pneumonia Patient is a 58-year-old white male with past medical history significant for hypertension, hyperlipidemia, nonocclusive coronary artery disease, and current everyday smoker. I am seeing this patient in the emergency room, after he presented yesterday afternoon with a chief complaint of generalized weakness, fall, shortness of breath and a productive cough. Patient states that starting Tuesday he developed a productive cough with yellow to green sputum. He progressively became more short of breath over the following days. Denies chest pain or hemoptysis. He noticed that he started developing fevers 2 nights ago. He has progressively become more weak. He has had reduced appetite and has not been drinking many oral fluids. He has been having nausea without vomiting. He had a fall yesterday. Denies hitting his head. He states that he more so lowered himself to the floor. States that he should have came in sooner. He is currently sitting in bed, on 3 L/min nasal cannula, he appears dyspneic. He is tachypneic with accessory muscle use. He was noted to be febrile on arrival with a Tmax of 103.3 F, which has been treated with Tylenol.. Chest x-ray demonstrates bilateral infiltrates, greater on the right mid and lower lobes. CBC on arrival demonstrates some leukocytosis with a WBC count of 21.2, otherwise unremarkable. BMP from yesterday has multiple electrolyte abnormalities including: Sodium 123, potassium 3.3, chloride 90, serum bicarb 14, BUN 53, creatinine 6.05, glucose 97. Lactic acid level was elevated at 3.9 and is down to 1.6. Magnesium level 0.9. LFTs mildly elevated. Total bili 1.8. Troponins elevated at 0.102, 0.116, and 0.132 respectively. Negative for influenza, RSV, COVID. Patient has been covered on broad-spectrum antibiotics including vancomycin, Zosyn, and azithromycin. Patient's current respiratory status is labile. On today's evaluation of 09/20/2023, the patient is being seen for a follow-up. Currently, the patient intubated on mechanical ventilator and sedated and paralyzed. This morning, the patient is on a propofol running at 30 mcg/kg/min and the patient is also on fentanyl at 0.3 mcg/kg/h. The patient is on Nimbex at 1 mcg/kg/min. While being on the mechanical ventilator, the patient assist- control mode at a rate of 30, tidal volume of 400, FiO2 is at 90% with a PEEP of 12. Urine output is in order of 20 to 30 cc an hour. Patient remains on norepinephrine running at 0.25 mcg/kg/min and the patient is also on physiologic dose of vasopressin. While on the mechanical ventilator, the peak airway pr essure is around 20, CVP is at 16. The patient was resuscitated with IV fluids and the fluid balance is +4.6 L over the past 24 hours. The blood gas shows a pH of 7.2 with a pCO2 of 45 and a pO2 of 86. Chest x-ray is consistent with bilateral pneumonia. The white cell count today is at 26.8 with a hemoglobin of 11 and a platelet count of 225. Sodium is at 123, potassium level is at 4.2, serum bicarb is at 15, BUN is at 7 6. Creatinine 6.85. The patient total calcium level is at 5.9 and the corrected calcium level is at 7.1. Phosphorus level is at 9.8. LFTs show an bilirubin of 1.2, AST of 420, ALT of 200. The patient remains on a combination of antibiotics including IV cefepime, va ncomycin and Zithromax. I performed a bronchoscopy endobronchial lavage of the right lower lobe. There was purulent respiratory secretions the right lung base that was suctioned out without any major difficulties. Blood cultures are negative thus far. The patient was also started on enteral feeding for nutritional support. Abdominal ultrasound showed normal common bile duct, normal kidneys without evidence of any hydronephrosis. Will on today's evaluation of 09/21/2023, the patient remains intubated on mechanical ventilator. Diagnosed having the Legionella pneumonia and urine antigen was positive. Bronchoscopy was done and the bronchial lavage results are still pending for now. This morning, the patient is on propofol running at 45 mcg/kg/min and the patient is also on fentanyl at 0.5 mcg/kg/h and Nimbex at 2 mcg/kg. Minutes. IV fluids are currently at KVO. Pressors have been off since midnight. The patient is hemodynamically stable. Underwent hemodialysis yesterday with a total of 2 L of ultrafiltration. Another session is in progress this morning. Remains on mechanical ventilator on assist-control mode and the patient is at rate of 30, tidal volume 400, FiO2 of 80% with a PEEP of 15. Blood gas showed pH of 7.42 with a pCO2 of 56 and pO2 of 101. Chest x-ray shows bilateral pulmonary consolidation consistent with pneumonia. Peak airway pressure is around 28. Patient is currently on Nepro at rate of 20 cc an hour. The white cell count of 25.8, hemoglobin 10.7 and a platelet count of 235. Blood gases was noted. Sodium levels at 129, potassium is at 4.2 with a BUN of 69 and creatinine of 6. LFTs are still mildly elevated. Vancomycin was discontinued. Zithromax was discontinued and the patient was started on Levaquin 500 mg every 48 hours. IV cefepime was maintained. 09/23/2023, the patient is being seen in a follow-up. He remains intubated on the mechanical ventilator. This morning, the patient on propofol at 25 mcg/kg/min and fentanyl at 2 mcg/kg/h. He is on assist-control mode of mechanical ventilation at rate of 30, tidal volume of 400, FiO2 50% with a PEEP of 15. Blood gas showed a pH of 7.35 with a pCO2 of 48 and pO2 of 82. The patient is on assist-control mode of mechanical ventilation. The blood gas from todayShows a pH of 7.35 with a pCO2 of 48 and pO2 of 72. Chest x-ray shows no major interval change and the patient continues to have bilateral pulmonary infiltrates and consolidations. The patient remains on cefepime and Levaquin. Note that the patient has been off paralytics for the past 48 hours. He grimaces to painful stimulation. He withdraws to painful stimulation in all 4 extremities. Fluid balance is -300 cc over the past 24 hours. IV fluids ordered for normal saline at rate of 10. Urine output is noted of 10 cc an hour. The patient is undergoing daily hemodialysis. Last hemodialysis session was yesterday a total of 2.5 L of fluid was removed. The patient remains on Nepro at rate of 41 cc an hour. The WBC count is at 16 with a hemoglobin 9.8 and a platelet count of 311. BUN is 77 with a creatinine of 6.2 and a sodium levels at 132 with a potassium level of 4. LFTs continue to improve. Afebrile. Hemodynamically stable on no pressors. No other significant events overnight. On 09/24/2023, the patient is being seen for a follow-up. He is intubated and mechanically ventilated. This morning, he is on a combination of propofol and fentanyl. Propofol is running at 65 mcg and fentanyl is at 2 mcg. He is on assist-control mode of mechanical ventilation at rate of 30, tidal volume of 400, FiO2 of 50% with a PEEP of 15. Blood gases showed pH of 7.34 with a pCO2 of 52 and pO2 of 88. The peak airway pressure is 30, static airway pressure is 28 and the chest x-ray findings are essentially unchanged. Remains on Nepro at 12 cc an hour. Urine output is in the order of 10 to 15 cc and the patient is undergoing daily hemodialysis. He is currently undergoing hemodialysis. He is hemodynamically stable on no pressors. He is afebrile. He is on Rocephin and Levaquin. He is also on IV Solu-Medrol and bronchodilators. No major changes in his condition. 09/25/2023, the patient is being seen for a follow-up. Some improvement in oxygenation compared to yesterday. 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 This morning, he remains on propofol at 25 mcg/kg/min and the patient is also on fentanyl at 2 mcg/kg/h. He is on IV fluids at KVO. Hemodialysis was done yesterday and the patient was ultrafiltrate to a total of 2.5 L. He is currently on assist-control mode of mechanical ventilation at rate of 30, tidal volume of 400, FiO2 40% and PEEP of 14. Blood gas from today shows a pH of 7.39 with a pCO2 of 42 and pO2 of 100. Chest x-ray showed atelectatic changes bilaterally in the left midlung in the right lower lobe. The patient continues to have some infiltration of the lung base bilaterally. ET tube is in a good location. The patient is receiving enteral feeding for nutritional support with Nepro at rate of 12 cc an hour. He is producing adequate amount of stools. WBC count at 22 with a hemoglobin of 9.6 and a platelet count of 342. Rest of the blood work shows a sodium level of 129, BUN of 88 and a creatinine of 5.47 and a potassium level is at 4.7. He remains on Levaquin and Rocephin. He remains on IV Solu-Medrol. He remains on bronchodilators. He remains on sliding scale insulin coverage. He is also on heparin subcu for DVT prophylaxis. Patient was placed today on 09/26/2023, patient remains in the ICU, intubated and mechanically ventilated. Patient is on assist-control rate of 3 0 tidal volume 400 FiO2 40% and PEEP of 12. ABG showed a pO2 of 63 pCO2 41 pH of 7.35, just in the flow rate from 50-65. Maintaining an I: E ratio of at least 1-2. Patient is sedated, he is on propofol and 70 mcg/kg/min he is also on fentanyl at 2 mcg/kg/h, he is receiving Nepro for nutritional support 12/12 mL/h. Patient was intubated on 09/18, remains intubated. He is receiving treatment for his Legionella pneumonia using Levaquin and Rocephin, he is also on bronchodilators for underlying COPD. Arterial line was lost yesterday, and I went ahead and established a new left radial arterial line. Chest x-ray continues to show bilateral infiltrates and left lower lobe atelectasis, positional changes noted bilaterally. WBC count remains high at 26.0, hemoglobin is 9.1. And his bands are 3%. ABG as noted earlier. Basic metabolic profile showed a bit of low sodium of 128, BUN is up to 128 creatinine 6.71. Patient is being followed by nephrology, started on hemodialysis on September 19, urine output is 50 to 60 cc/h, patient is on IV Lasix patient is scheduled to undergo hemodialysis today, and Lasix will be continued intermittently. Patient is also on aranesp as far as COPD is concerned, patient remains on DuoNeb, remains on methylprednisolone 60 every 6, patient is also on GI and DVT prophylaxis. Receiving pantoprazole 40 mg IV push daily, and on heparin subcu 5000 units subcu every 8 hours. Lasix is 80 mg IV push daily Patient was reevaluated today on 09/27/2023, heraclio in the ICU on assist-control r ate of 3 0 tidal volume 400 FiO2 40% PEEP was at 12 and I cut it down to 8. ABG showed a pO2 of 120 pCO2 42 pH of 7.37. Patient is still requiring relatively high dose of propofol at 70 mcg/kg/min, fentanyl 1.5 mcg/kg/h I cut down his propofol down to 50, and apparently yesterday off sedation, patient was able to track with his eyes, and he was able to follow very simple instructions but he was generally weak. Today I could even wake him up with painful stimuli, but does not follow any instructions. Hence the patient will be given another sedation holiday today and address the issue of assessment of mental status. Patient remains on nutritional support using Nepro at 15 mL/h which is goal. His Solu-Medrol was cut down to 40 mg IV push every 8 hours, patient remains on Rocephin and Levaquin, patient is responding to Lasix, and his creatinine is down to 5.13, most likely may not need dialysis although that is a consideration by nephrology. His blood cultures have been positive for Streptococcus viridans. Being addressed by infectious disease on the case, infectious disease is considering the possible contamination, and repeat blood cultures are pending. X-ray continues to show bilateral patchy interstitial infiltrates, not much of a change from baseline. WBC count is coming down to 23.9 hemoglobin is 9 basic metabolic profile is normal except renal profile showing a BUN of 99 creatinine of 5.13, slightly improved compared to yesterday. Procalcitonin remains high at 1.7 Objective - Vital Signs Vital signs: Vital Signs Temp 98.8 F 09/27/23 12:00 Pulse 86 09/27/23 12:00 Resp 34 H 09/27/23 12:00 BP 129/74 09/27/23 10:00 Pulse Ox 97 09/27/23 12:00 FiO2 40 09/27/23 12:00 Intake & Output 09/26/23 09/27/23 09/27/23 18:59 06:59 18:59 Intake Total 0466.529 4889.211 492.831 Output Total 3825 440 240 Balance -2512.627 572.211 252.831 Weight 91.2 kg 91 kg Intake: IV 290 312 206 0.9 NS 237 312 156 CVP 3 cefTRIAXone 2 gm In 50 50 Sodium Chloride 0.9% 50 ml @ 100 mls/hr IVPB Q24HR [facility] Rx#:[id number] Intake, IV Titration 510.373 445.211 271.831 Amount Clevidipine Butyrate 25 59.366 0.267 mg In Empty Bag 1 bag @ 1 MG/HR 2 mls/hr IV .Q24H [facility] Rx#:[id number] fentaNYL (PF). 1,000 mcg 208.812 91.188 100 In Sodium Chloride 0.9% 80 ml @ 0.5 MCG/KG/HR 4. 196 mls/hr IV .[id number] [facility] Rx#:[id number] propofoL 1,000 mg In 242.195 353.756 171.831 Empty Bag 1 bag @ 15 MCG/ KG/MIN 7.552 mls/hr IV . [id number] [facility] Rx#:[id number] Tube Feeding 12 165 15 Hemodialysis 500 Other 90 Output: Urine 325 440 240 Hemodialysis 3500 Other: Voiding Method Indwelling Catheter Indwelling Catheter Indwelling Catheter # Bowel Movements 1 ABP, PAP, CO, CI - Last Documented Arterial Blood Pressure 165/67 - Exam GENERAL EXAM: Reveals 58-year-old white male, intubated, mechanically ventilated, on propofol and fentanyl. HEAD: Normocephalic and atraumatic endotracheal tube and orogastric tube are intact. EYES: Normal reaction of pupils, equal size. NOSE: Clear with pink turbinates. THROAT: No erythema or exudates. NECK: No masses, no JVD. CHEST: No chest wall deformity. LUNGS: Scattered rhonchi noted bilaterally. Symmetrical chest expansion. CVS: Distant S1-S2, no S3 gallop, no murmur. ABDOMEN: Soft nontender no megaly no rebound no guarding. SKIN: No rashes CENTRAL NERVOUS SYSTEM: Patient is fully sedated, opens eyes with deep painful stimuli. But does not follow instructions EXTREMITIES: No clubbing edema or cyanosis - Labs CBC & Chem 7: 09/27/23 03:52 09/27/23 03:52 Labs: Abnormal Lab Results - Last 24 Hours (Table) 09/26/23 09/26/23 09/27/23 Range/Units 17:38 23:28 03:52 WBC (3.8-10.6) k/uL RBC (4.30-5.90) m/uL Hgb (13.0-17.5) gm/dL Hct (39.0-53.0) % Neutrophils # (Manual) (1.3-7.7) k/uL Lymphocytes # (Manual) (1.0-4.8) k/uL Monocytes # (Manual) (0-1.0) k/uL Metamyelocytes # (Man) (0) k/uL Myelocytes # (Manual) (0) k/uL ABG pO2 (83-108) mmHg ABG Total CO2 (19-24) mmol/L ABG O2 Saturation (94-97) % Sodium (137-145) mmol/L Chloride (98-107) mmol/L BUN (9-20) mg/dL Creatinine (0.66-1.25) mg/dL Glucose (74-99) mg/dL POC Glucose (mg/dL) 194 H 166 H (70-110) mg/dL Calcium (8.4-10.2) mg/dL C-Reactive Protein (<1.0) mg/dL Procalcitonin 1.72 H (0.02-0.09) ng/mL 09/27/23 09/27/23 09/27/23 Range/Units 03:52 03:52 05:04 WBC 23.9 H (3.8-10.6) k/uL RBC 2.75 L (4.30-5.90) m/uL Hgb 9.0 L (13.0-17.5) gm/dL Hct 26.2 L (39.0-53.0) % Neutrophils # (Manual) 20.70 H (1.3-7.7) k/uL Lymphocytes # (Manual) 0.72 L (1.0-4.8) k/uL Monocytes # (Manual) 1.43 H (0-1.0) k/uL Metamyelocytes # (Man) 0.72 H (0) k/uL Myelocytes # (Manual) 0.72 H (0) k/uL ABG pO2 120 H (83-108) mmHg ABG Total CO2 26 H (19-24) mmol/L ABG O2 Saturation 98.4 H (94-97) % Sodium 130 L (137-145) mmol/L Chloride 93 L (98-107) mmol/L BUN 99 H (9-20) mg/dL Creatinine 5.13 H (0.66-1.25) mg/dL Glucose 158 H (74-99) mg/dL POC Glucose (mg/dL) (70-110) mg/dL Calcium 7.7 L (8.4-10.2) mg/dL C-Reactive Protein 3.0 H (<1.0) mg/dL Procalcitonin (0.02-0.09) ng/mL 09/27/23 09/27/23 Range/Units 05:27 11:48 WBC (3.8-10.6) k/uL RBC (4.30-5.90) m/uL Hgb (13.0-17.5) gm/dL Hct (39.0-53.0) % Neutrophils # (Manual) (1.3-7.7) k/uL Lymphocytes # (Manual) (1.0-4.8) k/uL Monocytes # (Manual) (0-1.0) k/uL Metamyelocytes # (Man) (0) k/uL Myelocytes # (Manual) (0) k/uL ABG pO2 (83-108) mmHg ABG Total CO2 (19-24) mmol/L ABG O2 Saturation (94-97) % Sodium (137-145) mmol/L Chloride (98-107) mmol/L BUN (9-20) mg/dL Creatinine (0.66-1.25) mg/dL Glucose (74-99) mg/dL POC Glucose (mg/dL) 155 H 161 H (70-110) mg/dL Calcium (8.4-10.2) mg/dL C-Reactive Protein (<1.0) mg/dL Procalcitonin (0.02-0.09) ng/mL Microbiology - Last 24 Hours (Table) 09/23/23 14:10 Blood Culture - Preliminary Blood 09/22/23 23:00 Legionella Culture - Preliminary Sputum 09/24/23 05:03 Blood Culture - Preliminary Blood Assessment and Plan Assessment: Impression: Acute hypoxic respiratory failure secondary to multilobar pneumonia secondary to Legionella pneumonia patient was intubated on 09/18, underwent bronchoscopy and lavage, urine Legionella antigen is positive, patient is maintained on Rocephin and on Levaquin. Remains intubated and mechanically ventilated. Septic shock, resolved, patient is not requiring any pressors today. Acute exacerbation of COPD Severe dehydration on his initial presentation requiring fluid resuscitation. Acute kidney injury secondary to above/secondary to acute tubular necrosis and severe dehydration and sepsis on his initial presentation Acute transaminitis secondary to sepsis Benign essential hypertension Dyslipidemia Coronary artery disease [id number] smoking history, continues to smoke Bacteremia with Streptococcus viridans group D, being addressed by nasima chen on the case. Repeat cultures are pending Recommendation: Continue ventilatory support, PEEP is down from 12-8 Continue antibiotics for his underlying pneumonia presently on Levaquin and Rocephin Continue nutritional support, patient is presently on Nepro, at goal No plans for dialysis today. Patient is making good urine with diuresis. Continue DVT prophylaxis, on subcu heparin Continue GI prophylaxis, on Protonix Continue bronchodilators Continue steroids/Solu-Medrol, dose was decreased down to 40 mg IV push every 8 hours Keep fluids at KVO patient is requiring hemodialysis as per nephrology, started on hemodialysis on September 19, urine output is about 50 cc/h, tolerated 3 L of ultrafiltration yesterday Sedation interruption Patient remains critically ill Critical care time is over 30 minutes Time with Patient: Greater than 30
[2023-09-27] MEDS: methylPREDNISolone SOD SUCCI 40 MG/ML 1 ML VIAL IV SCH (16:17)
[2023-09-27 18:10] LABS: Glucose,Whole Blood 124 mg/dL (70-110)
[2023-09-27 23:16] LABS: Glucose,Whole Blood 138 mg/dL (70-110)
[2023-09-28 04:30] LABS: ABG Base Excess -4.2 mmol/L; ABG HCO3 21 mmol/L (21-25); ABG Oxygen Saturation 97.7 % (94-97); ABG PCO2 37 mmHg (35-45); ABG PH 7.36 (7.35-7.45); ABG PO2 107 mmHg (83-108); ABG TCO2 22 mmol/L (19-24)
[2023-09-28 05:15] LABS: Glucose,Whole Blood 148 mg/dL (70-110)
[2023-09-28 05:29] LABS: Allen Test Performed? no
[2023-09-28 06:12] LABS: HCT 27.6 % (39.0-53.0); HGB 9.2 gm/dL (13.0-17.5); MCH 32.2 pg (25.0-35.0); MCHC 33.2 g/dL (31.0-37.0); Mean Platelet Volume 8.9; Platelet Count 473 k/uL (150-450); RBC 2.84 m/uL (4.30-5.90); RDW 14.4 % (11.5-15.5); WBC 25.9 k/uL (3.8-10.6)
[2023-09-28 06:16] LABS: Anion Gap 18 mmol/L; Carbon Dioxide 17 mmol/L (22-30); Chloride 93 mmol/L (98-107); Glucose 132 mg/dL (74-99); Potassium 4.8 mmol/L (3.5-5.1); Sodium 128 mmol/L (137-145)
[2023-09-28 06:22] LABS: African American GFR (CKD) 10 (>60 ml/min/1.73 sqM); Non-African American GFR(CKD) 9 (>60 ml/min/1.73 sqM)
[2023-09-28 06:25] LABS: Blood Urea Nitrogen 127 mg/dL (9-20)
--- NOTE | 2023-09-28 11:06 | P.PN ---
Subjective Progress Note Date: 09/28/23 Principal diagnosis: Acute hypoxic respiratory failure secondary to Legionella pneumonia Patient is a 58-year-old white male with past medical history significant for hypertension, hyperlipidemia, nonocclusive coronary artery disease, and current everyday smoker. I am seeing this patient in the emergency room, after he presented yesterday afternoon with a chief complaint of generalized weakness, fall, shortness of breath and a productive cough. Patient states that starting Tuesday he developed a productive cough with yellow to green sputum. He progressively became more short of breath over the following days. Denies chest pain or hemoptysis. He noticed that he started developing fevers 2 nights ago. He has progressively become more weak. He has had reduced appetite and has not been drinking many oral fluids. He has been having nausea without vomiting. He had a fall yesterday. Denies hitting his head. He states that he more so lowered himself to the floor. States that he should have came in sooner. He is currently sitting in bed, on 3 L/min nasal cannula, he appears dyspneic. He is tachypneic with accessory muscle use. He was noted to be febrile on arrival with a Tmax of 103.3 F, which has been treated with Tylenol.. Chest x-ray demonstrates bilateral infiltrates, greater on the right mid and lower lobes. CBC on arrival demonstrates some leukocytosis with a WBC count of 21.2, otherwise unremarkable. BMP from yesterday has multiple electrolyte abnormalities including: Sodium 123, potassium 3.3, chloride 90, serum bicarb 14, BUN 53, creatinine 6.05, glucose 97. Lactic acid level was elevated at 3.9 and is down to 1.6. Magnesium level 0.9. LFTs mildly elevated. Total bili 1.8. Troponins elevated at 0.102, 0.116, and 0.132 respectively. Negative for influenza, RSV, COVID. Patient has been covered on broad-spectrum antibiotics including vancomycin, Zosyn, and azithromycin. Patient's current respiratory status is labile. On today's evaluation of 09/20/2023, the patient is being seen for a follow-up. Currently, the patient intubated on mechanical ventilator and sedated and paralyzed. This morning, the patient is on a propofol running at 30 mcg/kg/min and the patient is also on fentanyl at 0.3 mcg/kg/h. The patient is on Nimbex at 1 mcg/kg/min. While being on the mechanical ventilator, the patient assist- control mode at a rate of 30, tidal volume of 400, FiO2 is at 90% with a PEEP of 12. Urine output is in order of 20 to 30 cc an hour. Patient remains on norepinephrine running at 0.25 mcg/kg/min and the patient is also on physiologic dose of vasopressin. While on the mechanical ventilator, the peak airway pr essure is around 20, CVP is at 16. The patient was resuscitated with IV fluids and the fluid balance is +4.6 L over the past 24 hours. The blood gas shows a pH of 7.2 with a pCO2 of 45 and a pO2 of 86. Chest x-ray is consistent with bilateral pneumonia. The white cell count today is at 26.8 with a hemoglobin of 11 and a platelet count of 225. Sodium is at 123, potassium level is at 4.2, serum bicarb is at 15, BUN is at 7 6. Creatinine 6.85. The patient total calcium level is at 5.9 and the corrected calcium level is at 7.1. Phosphorus level is at 9.8. LFTs show an bilirubin of 1.2, AST of 420, ALT of 200. The patient remains on a combination of antibiotics including IV cefepime, va ncomycin and Zithromax. I performed a bronchoscopy endobronchial lavage of the right lower lobe. There was purulent respiratory secretions the right lung base that was suctioned out without any major difficulties. Blood cultures are negative thus far. The patient was also started on enteral feeding for nutritional support. Abdominal ultrasound showed normal common bile duct, normal kidneys without evidence of any hydronephrosis. Will on today's evaluation of 09/21/2023, the patient remains intubated on mechanical ventilator. Diagnosed having the Legionella pneumonia and urine antigen was positive. Bronchoscopy was done and the bronchial lavage results are still pending for now. This morning, the patient is on propofol running at 45 mcg/kg/min and the patient is also on fentanyl at 0.5 mcg/kg/h and Nimbex at 2 mcg/kg. Minutes. IV fluids are currently at KVO. Pressors have been off since midnight. The patient is hemodynamically stable. Underwent hemodialysis yesterday with a total of 2 L of ultrafiltration. Another session is in progress this morning. Remains on mechanical ventilator on assist-control mode and the patient is at rate of 30, tidal volume 400, FiO2 of 80% with a PEEP of 15. Blood gas showed pH of 7.42 with a pCO2 of 56 and pO2 of 101. Chest x-ray shows bilateral pulmonary consolidation consistent with pneumonia. Peak airway pressure is around 28. Patient is currently on Nepro at rate of 20 cc an hour. The white cell count of 25.8, hemoglobin 10.7 and a platelet count of 235. Blood gases was noted. Sodium levels at 129, potassium is at 4.2 with a BUN of 69 and creatinine of 6. LFTs are still mildly elevated. Vancomycin was discontinued. Zithromax was discontinued and the patient was started on Levaquin 500 mg every 48 hours. IV cefepime was maintained. 09/23/2023, the patient is being seen in a follow-up. He remains intubated on the mechanical ventilator. This morning, the patient on propofol at 25 mcg/kg/min and fentanyl at 2 mcg/kg/h. He is on assist-control mode of mechanical ventilation at rate of 30, tidal volume of 400, FiO2 50% with a PEEP of 15. Blood gas showed a pH of 7.35 with a pCO2 of 48 and pO2 of 82. The patient is on assist-control mode of mechanical ventilation. The blood gas from todayShows a pH of 7.35 with a pCO2 of 48 and pO2 of 72. Chest x-ray shows no major interval change and the patient continues to have bilateral pulmonary infiltrates and consolidations. The patient remains on cefepime and Levaquin. Note that the patient has been off paralytics for the past 48 hours. He grimaces to painful stimulation. He withdraws to painful stimulation in all 4 extremities. Fluid balance is -300 cc over the past 24 hours. IV fluids ordered for normal saline at rate of 10. Urine output is noted of 10 cc an hour. The patient is undergoing daily hemodialysis. Last hemodialysis session was yesterday a total of 2.5 L of fluid was removed. The patient remains on Nepro at rate of 41 cc an hour. The WBC count is at 16 with a hemoglobin 9.8 and a platelet count of 311. BUN is 77 with a creatinine of 6.2 and a sodium levels at 132 with a potassium level of 4. LFTs continue to improve. Afebrile. Hemodynamically stable on no pressors. No other significant events overnight. On 09/24/2023, the patient is being seen for a follow-up. He is intubated and mechanically ventilated. This morning, he is on a combination of propofol and fentanyl. Propofol is running at 65 mcg and fentanyl is at 2 mcg. He is on assist-control mode of mechanical ventilation at rate of 30, tidal volume of 400, FiO2 of 50% with a PEEP of 15. Blood gases showed pH of 7.34 with a pCO2 of 52 and pO2 of 88. The peak airway pressure is 30, static airway pressure is 28 and the chest x-ray findings are essentially unchanged. Remains on Nepro at 12 cc an hour. Urine output is in the order of 10 to 15 cc and the patient is undergoing daily hemodialysis. He is currently undergoing hemodialysis. He is hemodynamically stable on no pressors. He is afebrile. He is on Rocephin and Levaquin. He is also on IV Solu-Medrol and bronchodilators. No major changes in his condition. 09/25/2023, the patient is being seen for a follow-up. Some improvement in oxygenation compared to yesterday. 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 This morning, he remains on propofol at 25 mcg/kg/min and the patient is also on fentanyl at 2 mcg/kg/h. He is on IV fluids at KVO. Hemodialysis was done yesterday and the patient was ultrafiltrate to a total of 2.5 L. He is currently on assist-control mode of mechanical ventilation at rate of 30, tidal volume of 400, FiO2 40% and PEEP of 14. Blood gas from today shows a pH of 7.39 with a pCO2 of 42 and pO2 of 100. Chest x-ray showed atelectatic changes bilaterally in the left midlung in the right lower lobe. The patient continues to have some infiltration of the lung base bilaterally. ET tube is in a good location. The patient is receiving enteral feeding for nutritional support with Nepro at rate of 12 cc an hour. He is producing adequate amount of stools. WBC count at 22 with a hemoglobin of 9.6 and a platelet count of 342. Rest of the blood work shows a sodium level of 129, BUN of 88 and a creatinine of 5.47 and a potassium level is at 4.7. He remains on Levaquin and Rocephin. He remains on IV Solu-Medrol. He remains on bronchodilators. He remains on sliding scale insulin coverage. He is also on heparin subcu for DVT prophylaxis. Patient was placed today on 09/26/2023, patient remains in the ICU, intubated and mechanically ventilated. Patient is on assist-control rate of 3 0 tidal volume 400 FiO2 40% and PEEP of 12. ABG showed a pO2 of 63 pCO2 41 pH of 7.35, just in the flow rate from 50-65. Maintaining an I: E ratio of at least 1-2. Patient is sedated, he is on propofol and 70 mcg/kg/min he is also on fentanyl at 2 mcg/kg/h, he is receiving Nepro for nutritional support 12/12 mL/h. Patient was intubated on 09/18, remains intubated. He is receiving treatment for his Legionella pneumonia using Levaquin and Rocephin, he is also on bronchodilators for underlying COPD. Arterial line was lost yesterday, and I went ahead and established a new left radial arterial line. Chest x-ray continues to show bilateral infiltrates and left lower lobe atelectasis, positional changes noted bilaterally. WBC count remains high at 26.0, hemoglobin is 9.1. And his bands are 3%. ABG as noted earlier. Basic metabolic profile showed a bit of low sodium of 128, BUN is up to 128 creatinine 6.71. Patient is being followed by nephrology, started on hemodialysis on September 19, urine output is 50 to 60 cc/h, patient is on IV Lasix patient is scheduled to undergo hemodialysis today, and Lasix will be continued intermittently. Patient is also on aranesp as far as COPD is concerned, patient remains on DuoNeb, remains on methylprednisolone 60 every 6, patient is also on GI and DVT prophylaxis. Receiving pantoprazole 40 mg IV push daily, and on heparin subcu 5000 units subcu every 8 hours. Lasix is 80 mg IV push daily Patient was reevaluated today on 09/27/2023, heraclio in the ICU on assist-control r ate of 3 0 tidal volume 400 FiO2 40% PEEP was at 12 and I cut it down to 8. ABG showed a pO2 of 120 pCO2 42 pH of 7.37. Patient is still requiring relatively high dose of propofol at 70 mcg/kg/min, fentanyl 1.5 mcg/kg/h I cut down his propofol down to 50, and apparently yesterday off sedation, patient was able to track with his eyes, and he was able to follow very simple instructions but he was generally weak. Today I could even wake him up with painful stimuli, but does not follow any instructions. Hence the patient will be given another sedation holiday today and address the issue of assessment of mental status. Patient remains on nutritional support using Nepro at 15 mL/h which is goal. His Solu-Medrol was cut down to 40 mg IV push every 8 hours, patient remains on Rocephin and Levaquin, patient is responding to Lasix, and his creatinine is down to 5.13, most likely may not need dialysis although that is a consideration by nephrology. His blood cultures have been positive for Streptococcus viridans. Being addressed by infectious disease on the case, infectious disease is considering the possible contamination, and repeat blood cultures are pending. X-ray continues to show bilateral patchy interstitial infiltrates, not much of a change from baseline. WBC count is coming down to 23.9 hemoglobin is 9 basic metabolic profile is normal except renal profile showing a BUN of 99 creatinine of 5.13, slightly improved compared to yesterday. Procalcitonin remains high at 1.7 Patient was seen today on 09/28/2023, patient remains on assist-control rate of 30 tidal volume 400 FiO2 40% PEEP was 8 and I cut it down to 5 ABG showed a pO2 of 107 pCO2 37 pH of 7.36 patient is on propofol at 50 mcg/kg/min, fentanyl at 1.5 mcg/kg/h he is also on Cleviprex at 4 mg/h and on Nepro 15 mL/h. Patient is opening eyes, and unable to follow instructions. Hence I have advised cutting down the propofol further and hopefully cutting down the fentanyl further and start addressing mental status on a daily basis. Chest x-ray is showing improvement in his bilateral infiltrates. Patient continues to have low urine output about 30 to 40 cc/h, creatinine went up to 6.31 with BUN of 127, nephrology is planning hemodialysis on the patient today. Labs were reviewed WBC count is up to 25.9 hemoglobin 9.2. Overall the patient is basically about the same, no major change, I am hoping at least we could get down on lower doses of sedations and narcotics, and at least give the patient weaning trials if we can in the next day or 2 days. Objective - Vital Signs Vital signs: Vital Signs Temp 98.1 F 09/28/23 08:00 Pulse 105 H 09/28/23 09:00 Resp 16 09/28/23 09:00 BP 146/85 09/28/23 09:00 Pulse Ox 96 09/28/23 09:00 FiO2 40 09/28/23 07:48 Intake & Output 09/27/23 09/28/23 09/28/23 18:59 06:59 18:59 Intake Total 982.581 983.846 190.267 Output Total 525 490 164 Balance 457.581 493.846 26.267 Weight 93 kg Intake: IV 333 253 46 0.9 NS 231 253 43 CVP 52 3 cefTRIAXone 2 gm In 50 Sodium Chloride 0.9% 50 ml @ 100 mls/hr IVPB Q24HR [facility] Rx#:[id number] Intake, IV Titration 634.581 550.846 129.267 Amount Clevidipine Butyrate 25 18.766 128.467 29.267 mg In Empty Bag 1 bag @ 1 MG/HR 2 mls/hr IV .Q24H [facility] Rx#:[id number] Levofloxacin 500Mg-D5w 100 Pmx 500 mg In Dextrose/ Water 1 100ml.bag @ 100 mls/hr IVPB Q48H [facility] Rx#: [id number] fentaNYL (PF). 1,000 mcg 197.13 100 In Sodium Chloride 0.9% 80 ml @ 0.5 MCG/KG/HR 4. 196 mls/hr IV .[id number] [facility] Rx#:[id number] propofoL 1,000 mg In 318.685 322.379 100 Empty Bag 1 bag @ 15 MCG/ KG/MIN 7.552 mls/hr IV . [id number] [facility] Rx#:[id number] Tube Feeding 15 150 15 Other 30 Output: Urine 525 490 164 Other: Voiding Method Indwelling Catheter Indwelling Catheter ABP, PAP, CO, CI - Last Documented Arterial Blood Pressure 155/68 - Exam GENERAL EXAM: Reveals 58-year-old white male, intubated, mechanically ventilated, on propofol and fentanyl. Patient opens eyes, but does not follow any instructions HEAD: Normocephalic and atraumatic endotracheal tube and orogastric tube are intact. EYES: Normal reaction of pupils, equal size. NOSE: Clear with pink turbinates. THROAT: No erythema or exudates. NECK: No masses, no JVD. CHEST: No chest wall deformity. LUNGS: Crackles at the bases persist. CVS: Distant S1-S2, no S3 gallop, no murmur. ABDOMEN: Soft nontender no megaly no rebound no guarding. SKIN: No rashes CENTRAL NERVOUS SYSTEM: Opens eyes but does not follow instructions EXTREMITIES: No clubbing edema or cyanosis - Labs CBC & Chem 7: 09/28/23 03:32 09/28/23 03:32 Labs: Abnormal Lab Results - Last 24 Hours (Table) 09/27/23 09/27/23 09/27/23 Range/Units 11:48 18:09 23:15 WBC (3.8-10.6) k/uL RBC (4.30-5.90) m/uL Hgb (13.0-17.5) gm/dL Hct (39.0-53.0) % Plt Count (150-450) k/uL ABG O2 Saturation (94-97) % Sodium (137-145) mmol/L Chloride (98-107) mmol/L Carbon Dioxide (22-30) mmol/L BUN (9-20) mg/dL Creatinine (0.66-1.25) mg/dL Glucose (74-99) mg/dL POC Glucose (mg/dL) 161 H 124 H 138 H (70-110) mg/dL Calcium (8.4-10.2) mg/dL Magnesium (1.6-2.3) mg/dL 09/28/23 09/28/23 09/28/23 Range/Units 03:32 03:32 03:32 WBC 25.9 H (3.8-10.6) k/uL RBC 2.84 L (4.30-5.90) m/uL Hgb 9.2 L (13.0-17.5) gm/dL Hct 27.6 L (39.0-53.0) % Plt Count 473 H (150-450) k/uL ABG O2 Saturation (94-97) % Sodium 128 L (137-145) mmol/L Chloride 93 L (98-107) mmol/L Carbon Dioxide 17 L (22-30) mmol/L BUN 127 H* (9-20) mg/dL Creatinine 6.31 H (0.66-1.25) mg/dL Glucose 132 H (74-99) mg/dL POC Glucose (mg/dL) (70-110) mg/dL Calcium 8.0 L (8.4-10.2) mg/dL Magnesium 2.4 H (1.6-2.3) mg/dL 09/28/23 09/28/23 Range/Units 04: 05:14 WBC (3.8-10.6) k/uL RBC (4.30-5.90) m/uL Hgb (13.0-17.5) gm/dL Hct (39.0-53.0) % Plt Count (150-450) k/uL ABG O2 Saturation 97.7 H (94-97) % Sodium (137-145) mmol/L Chloride (98-107) mmol/L Carbon Dioxide (22-30) mmol/L BUN (9-20) mg/dL Creatinine (0.66-1.25) mg/dL Glucose (74-99) mg/dL POC Glucose (mg/dL) 148 H (70-110) mg/dL Calcium (8.4-10.2) mg/dL Magnesium (1.6-2.3) mg/dL Microbiology - Last 24 Hours (Table) 09/24/23 05:03 Blood Culture - Preliminary Blood Assessment and Plan Assessment: Impression: Acute hypoxic respiratory failure secondary to multilobar pneumonia secondary to Legionella pneumonia patient was intubated on 09/18, underwent bronchoscopy and lavage, urine Legionella antigen is positive, patient is maintained on Rocephin and on Levaquin. Remains intubated and mechanically ventilated. Septic shock, resolved, not requiring pressors Acute exacerbation of COPD, patient is on bronchodilators. Pulmonary status is gradually improving Acute kidney injury secondary to above/secondary to acute tubular necrosis and severe dehydration and sepsis on his initial presentation patient is now on hemodialysis intermittently will be dialyzed today. Acute transaminitis secondary to sepsis Benign essential hypertension Dyslipidemia Coronary artery disease [id number] smoking history Bacteremia with Streptococcus viridans group D, being addressed by infectious disease on the case. Repeat cultures are negative so far from 09/24/2023 Recommendation: Continue ventilatory support, PEEP, is down to 5 Continue antibiotics for his underlying pneumonia presently on Levaquin and Vamshi ephin Continue nutritional support, patient is presently on Nepro, at goal Patient will be dialyzed today. Continue DVT prophylaxis Continue GI prophylaxis, on Protonix Continue bronchodilators Continue Solu-Medrol. Nephrology is planning hemodialysis today. Sedation interruption, on a daily basis and assessment for possible bleeding, will start doing this today Patient remains critically ill Critical care time is over 30 minutes Time with Patient: Greater than 30
--- NOTE | 2023-09-28 11:31 | P.PN ---
Subjective Patient is seen in follow-up for acute kidney injury. Started on hemodialysis September 20, 2023. Intubated. Off vasopressors. On IV Lasix. Urine output 40 to 50 cc an hour. Scheduled for dialysis today. Vital signs are stable. General: Resting in bed. HEENT: Intubated. LUNGS: Scattered rhonchi. HEART: Rate and Rhythm are regular. ABDOMEN: No distention. EXTREMITITES: 1+ edema. Objective - Vital Signs Vital signs: Vital Signs Temp 98.1 F 09/28/23 08:00 Pulse 77 09/28/23 11:12 Resp 31 H 09/28/23 11:12 BP 146/85 09/28/23 09:00 Pulse Ox 96 09/28/23 09:00 FiO2 40 09/28/23 11:04 Intake & Output 09/27/23 09/28/23 09/28/23 18:59 06:59 18:59 Intake Total 982.581 983.846 190.267 Output Total 525 490 164 Balance 457.581 493.846 26.267 Weight 93 kg Intake: IV 333 253 46 0.9 NS 231 253 43 CVP 52 3 cefTRIAXone 2 gm In 50 Sodium Chloride 0.9% 50 ml @ 100 mls/hr IVPB Q24HR [facility] Rx#:[id number] Intake, IV Titration 634.581 550.846 129.267 Amount Clevidipine Butyrate 25 18.766 128.467 29.267 mg In Empty Bag 1 bag @ 1 MG/HR 2 mls/hr IV .Q24H [facility] Rx#:[id number] Levofloxacin 500Mg-D5w 100 Pmx 500 mg In Dextrose/ Water 1 100ml.bag @ 100 mls/hr IVPB Q48H [facility] Rx#: [id number] fentaNYL (PF). 1,000 mcg 197.13 100 In Sodium Chloride 0.9% 80 ml @ 0.5 MCG/KG/HR 4. 196 mls/hr IV .[id number] [facility] Rx#:[id number] propofoL 1,000 mg In 318.685 322.379 100 Empty Bag 1 bag @ 15 MCG/ KG/MIN 7.552 mls/hr IV . [id number] [facility] Rx#:[id number] Tube Feeding 15 150 15 Other 30 Output: Urine 525 490 164 Other: Voiding Method Indwelling Catheter Indwelling Catheter ABP, PAP, CO, CI - Last Documented Arterial Blood Pressure 155/68 - Labs CBC & Chem 7: 09/28/23 03:32 09/28/23 03:32 Labs: Abnormal Lab Results - Last 24 Hours (Table) 09/27/23 09/27/23 09/27/23 Range/Units 11:48 18:09 23:15 WBC (3.8-10.6) k/uL RBC (4.30-5.90) m/uL Hgb (13.0-17.5) gm/dL Hct (39.0-53.0) % Plt Count (150-450) k/uL ABG O2 Saturation (94-97) % Sodium (137-145) mmol/L Chloride (98-107) mmol/L Carbon Dioxide (22-30) mmol/L BUN (9-20) mg/dL Creatinine (0.66-1.25) mg/dL Glucose (74-99) mg/dL POC Glucose (mg/dL) 161 H 124 H 138 H (70-110) mg/dL Calcium (8.4-10.2) mg/dL Magnesium (1.6-2.3) mg/dL 09/28/23 09/28/23 09/28/23 Range/Units 03:32 03:32 03:32 WBC 25.9 H (3.8-10.6) k/uL RBC 2.84 L (4.30-5.90) m/uL Hgb 9.2 L (13.0-17.5) gm/dL Hct 27.6 L (39.0-53.0) % Plt Count 473 H (150-450) k/uL ABG O2 Saturation (94-97) % Sodium 128 L (137-145) mmol/L Chloride 93 L (98-107) mmol/L Carbon Dioxide 17 L (22-30) mmol/L BUN 127 H* (9-20) mg/dL Creatinine 6.31 H (0.66-1.25) mg/dL Glucose 132 H (74-99) mg/dL POC Glucose (mg/dL) (70-110) mg/dL Calcium 8.0 L (8.4-10.2) mg/dL Magnesium 2.4 H (1.6-2.3) mg/dL 09/28/23 09/28/23 Range/Units 04:29 05:14 WBC (3.8-10.6) k/uL RBC (4.30-5.90) m/uL Hgb (13.0-17.5) gm/dL Hct (39.0-53.0) % Plt Count (150-450) k/uL ABG O2 Saturation 97.7 H (94-97) % Sodium (137-145) mmol/L Chloride (98-107) mmol/L Carbon Dioxide (22-30) mmol/L BUN (9-20) mg/dL Creatinine (0.66-1.25) mg/dL Glucose (74-99) mg/dL POC Glucose (mg/dL) 148 H (70-110) mg/dL Calcium (8.4-10.2) mg/dL Magnesium (1.6-2.3) mg/dL Microbiology - Last 24 Hours (Table) 09/24/23 05:03 Blood Culture - Preliminary Blood Assessment and Plan Plan: Assessment: 1. Acute kidney injury secondary to ATN secondary to septic shock. Creatinine 0.8-0.9 in March 2023. This admission creatinine was near 6 with no improvement. Started on hemodialysis September 20, 2023. Has right femoral catheter. No hydronephrosis noted on imaging. On IV Lasix. Urine output 30 to 50 cc an hour. Elevated BUN partially due to steroids. 2. Septic shock secondary to pneumonia maintained on antibiotics. Urine Leg ionella antigen positive. 3. Acute hypoxic respiratory failure. On 40% FiO2. 4. Hypervolemic hyponatremia. 5. Volume overload. Improving with ultrafiltration. 6. Metabolic acidosis secondary to acute kidney injury. Improved. 7. Hyperphosphatemia secondary to acute kidney injury. On PhosLo. Plan: Hemodialysis today. Receiving tube feeds. Wean FiO2. Avoid nephrotoxins. Monitor for renal recovery. Maintain IV Lasix. Serologies negative except for positive ROE. Maintain Aranesp.
[2023-09-28 11:50] LABS: Glucose,Whole Blood 150 mg/dL (70-110)
--- NOTE | 2023-09-28 12:04 | XR ---
EXAMINATION TYPE: XR chest 1V portable DATE OF EXAM: 09/28/2023 Comparison: 09/27/2023 Clinical History: 58-year-old male shortness of breath Findings: ET and NG tubes are satisfactory. Left subclavian CVC tip lower SVC. Heart upper limits of normal in size. Multifocal interstitial and patchy opacities persist, right greater than left. Impression: Similar bilateral interstitial opacities and focal patchy left basilar opacity.
[2023-09-28 12:37] LABS: Band Neutrophils % 5 %; Lymphocytes # (M) 1.55 k/uL (1.0-4.8); Metamyelocytes # (M) 0.52 k/uL (0); Metamyelocytes % 2 %; Monocytes # (M) 1.04 k/uL (0-1.0); Myelocytes % 5 %; Neutrophils % (M) 80 %; Nucleated Red Blood Cells 0 /100 WBC (0-0); Total Cells Counted 200
[2023-09-28 12:41] LABS: Anisocytosis (M) Present
--- NOTE | 2023-09-28 14:04 | P.PN ---
Subjective Progress Note Date: 09/28/23 Hospital Course: 58-year-old male with history of hypertension, dyslipidemia, coronary artery d isease presenting with shortness of breath. In the ED, temperature was 103.3, pulse 131, respiratory rate 30, blood pressure 118/86, saturating 88% on room air. WBC 21.2, hemoglobin 13, pH 7.41, pCO2 33, sodium 122, potassium 3.4, bicarb 18, anion gap 20, creatinine 5.94, lactic acid 3.9, magnesium 0.9, total bili 1.8, AST 110, ALT 53, ALP 105, troponin 0.102. Respiratory viral panel negative. Chest x-ray shows multifocal pneumonia right lower lobe greater than left. EKG shows sinus tachycardia with right bundle you block. Pelvic x-ray shows no acute process. Head CT shows no acute process. Pulmonology, nephrology, cardiology consulted. Respiratory function progressively worsening despite being on broad-spectrum antibiotics. Patient is was subsequently intubated, on vasopressors. Troponin mildly elevated 0.102, 0.116, 0.132. Cardiology consulted, Echo EF 50-55% with no regional wall motion abnormalities, likely Type II [place]. Right femoral HD catheter inserted 09/19, daily HD ordered by Nephrology. He underwent bronchoscopy with lavage on 09/19 with significant purulence noted in the RLL. Legionella Ag +, maintained on ceftriaxone and Levaquin. Vasopressin and Levophed weaned off 09/20. Remains sedated. Still on mechanical ventilated. Continue to be on dialysis. Subjective: Seen and examined at bedside. No acute events overnight. Remains intubated. No pressors. On propofol and fentanyl for sedation. Also on Cleviprex for hypertension. Adequate urine output. Will go through sedation holiday again today. Pertinent positives and negatives as discussed above, a complete review of systems was performed and all other systems are negative. Vitals Signs Reviewed. General: Intubated sedated Derm: Warm, dry Head: Atraumatic, normocephalic, symmetric Eyes: Pupils equal and reactive Mouth: No lip lesion, mucus membranes moist Cardiovascular: S1S2 reg, no murmur Lungs: Bilateral rhonchi, no accessory muscle use, mechanically ventilated Abdominal: Soft, nondistended, no guarding, no appreciable organomegaly Ext: No gross muscle atrophy, no edema, no contractures Neuro: Sedated Psych: Unable to assess Data Reviewed Today: Pertinent Labs: WBC 25.9, hemoglobin 9.2, sodium 128, bicarb 17, creatinine 6.31, blood sugars range between 1 32-1 50, pH 7.36, pCO2 37, pO2 107 Imaging: Chest x-ray independently interpreted, shows persistent bilateral multifocal opacities similar to yesterday Assessment and Plan: Patient is critically ill, prognosis guarded. Acute hypoxic respiratory failure Septic shock due to Legionella pneumonia Strep viridans bacteremia -Continue ceftriaxone 2 g IV every 24 hours, levofloxacin 500 IV every 48 hours -Continue DuoNeb every 4 hours, Solu-Medrol 40 IV every 8 hours, monitor blood sugars, on sliding scale insulin -ID following -BAL positive for Farzana albicans -Pulmonology managing vent settings, note reviewed, likely weaning trial today -Off of vasopressors -Consider further sedation holiday, continue to wean sedation Acute kidney injury, on hemodialysis Hyperphosphatemia Microcytic anemia Hypertension Hypervolemic hyponatremia Hypocalcemia -Continue to hold lisinopril and hydrochlorothiazide -Nephrology note reviewed, may need exchange of dialysis catheter, maintain IV Lasix 80 daily, continue PhosLo 3 times daily, darbepoetin weekly, continue dialysis -On hydralazine 50 3 times daily, IV hydralazine as needed, Cleviprex IV per pulmonology -Repeat BMP, CBC tomorrow -Also on calcium carbonate 500 3 times daily Likely EtOH withdrawal -Ativan PRN per CIWA scale Troponin elevation, Type II MO History of CAD -Plavix 75 mg PO QD. Metoprolol 25 mg PO BID. -Continue atorvastatin 80 daily Transaminitis -Abd US intermediate legion in the right hepatic lobe, MRI recommended. CBD within normal limits. DVT ppx: Subcu heparin Code status: Full code Anticipated discharge place: Pending clinical course Anticipated discharge time: Pending clinical course Objective - Vital Signs Vital signs: Vital Signs Temp 98.4 F 09/28/23 12:00 Pulse 75 09/28/23 13:00 Resp 0 L 09/28/23 13:00 BP 105/64 09/28/23 13:00 Pulse Ox 98 09/28/23 13:00 FiO2 40 09/28/23 12:00 Intake & Output 09/27/23 09/28/23 09/28/23 18:59 06:59 18:59 Intake Total 982.581 983.846 445.624 Output Total 525 490 364 Balance 457.581 493.846 81.624 Weight 93 kg Intake: IV 333 253 138 0.9 NS 231 253 123 CVP 52 15 cefTRIAXone 2 gm In 50 Sodium Chloride 0.9% 50 ml @ 100 mls/hr IVPB Q24HR [facility] Rx#:[id number] Intake, IV Titration 634.581 550.846 292.624 Amount Clevidipine Butyrate 25 18.766 128.467 29.267 mg In Empty Bag 1 bag @ 1 MG/HR 2 mls/hr IV .Q24H [facility] Rx#:[id number] Levofloxacin 500Mg-D5w 100 Pmx 500 mg In Dextrose/ Water 1 100ml.bag @ 100 mls/hr IVPB Q48H [facility] Rx#: [id number] fentaNYL (PF). 1,000 mcg 197.13 100 100 In Sodium Chloride 0.9% 80 ml @ 0.5 MCG/KG/HR 4. 196 mls/hr IV .[id number] [facility] Rx#:[id number] propofoL 1,000 mg In 318.685 322.379 163.357 Empty Bag 1 bag @ 15 MCG/ KG/MIN 7.552 mls/hr IV . [id number] [facility] Rx#:[id number] Tube Feeding 15 150 15 Other 30 Output: Urine 525 490 364 Other: Voiding Method Indwelling Catheter Indwelling Catheter Indwelling Catheter ABP, PAP, CO, CI - Last Documented Arterial Blood Pressure 132/59 - Labs CBC & Chem 7: 09/28/23 03:32 09/28/23 03:32 Labs: Abnormal Lab Results - Last 24 Hours (Table) 09/27/23 09/27/23 09/28/23 Range/Units 18:09 23:15 03:32 WBC (3.8-10.6) k/uL RBC (4.30-5.90) m/uL Hgb (13.0-17.5) gm/dL Hct (39.0-53.0) % Plt Count (150-450) k/uL Neutrophils # (Manual) (1.3-7.7) k/uL Monocytes # (Manual) (0-1.0) k/uL Metamyelocytes # (Man) (0) k/uL Myelocytes # (Manual) (0) k/uL ABG O2 Saturation (94-97) % Sodium (137-145) mmol/L Chloride (98-107) mmol/L Carbon Dioxide (22-30) mmol/L BUN (9-20) mg/dL Creatinine (0.66-1.25) mg/dL Glucose (74-99) mg/dL POC Glucose (mg/dL) 124 H 138 H (70-110) mg/dL Calcium (8.4-10.2) mg/dL Magnesium 2.4 H (1.6-2.3) mg/dL 09/28/23 09/28/23 09/28/23 Range/Units 03:32 03:32 04:29 WBC 25.9 H (3.8-10.6) k/uL RBC 2.84 L (4.30-5.90) m/uL Hgb 9.2 L (13.0-17.5) gm/dL Hct 27.6 L (39.0-53.0) % Plt Count 473 H (150-450) k/uL Neutrophils # (Manual) 22.00 H (1.3-7.7) k/uL Monocytes # (Manual) 1.04 H (0-1.0) k/uL Metamyelocytes # (Man) 0.52 H (0) k/uL Myelocytes # (Manual) 1.30 H (0) k/uL ABG O2 Saturation 97.7 H (94-97) % Sodium 128 L (137-145) mmol/L Chloride 93 L (98-107) mmol/L Carbon Dioxide 17 L (22-30) mmol/L BUN 127 H* (9-20) mg/dL Creatinine 6.31 H (0.66-1.25) mg/dL Glucose 132 H (74-99) mg/dL POC Glucose (mg/dL) (70-110) mg/dL Calcium 8.0 L (8.4-10.2) mg/dL Magnesium (1.6-2.3) mg/dL 09/28/23 09/28/23 Range/Units 05:14 11:48 WBC (3.8-10.6) k/uL RBC (4.30-5.90) m/uL Hgb (13.0-17.5) gm/dL Hct (39.0-53.0) % Plt Count (150-450) k/uL Neutrophils # (Manual) (1.3-7.7) k/uL Monocytes # (Manual) (0-1.0) k/uL Metamyelocytes # (Man) (0) k/uL Myelocytes # (Manual) (0) k/uL ABG O2 Saturation (94-97) % Sodium (137-145) mmol/L Chloride (98-107) mmol/L Carbon Dioxide (22-30) mmol/L BUN (9-20) mg/dL Creatinine (0.66-1.25) mg/dL Glucose (74-99) mg/dL POC Glucose (mg/dL) 148 H 150 H (70-110) mg/dL Calcium (8.4-10.2) mg/dL Magnesium (1.6-2.3) mg/dL Microbiology - Last 24 Hours (Table) 09/24/23 05:03 Blood Culture - Preliminary Blood
[2023-09-28 17:57] LABS: Glucose,Whole Blood 134 mg/dL (70-110)
[2023-09-28 23:18] LABS: Glucose,Whole Blood 146 mg/dL (70-110)
[2023-09-29 05:52] LABS: Glucose,Whole Blood 137 mg/dL (70-110)
[2023-09-29 06:09] LABS: ABG HCO3 25 mmol/L (21-25); ABG Oxygen Saturation 98.8 % (94-97); ABG PCO2 38 mmHg (35-45); ABG PH 7.42 (7.35-7.45); ABG PO2 134 mmHg (83-108); ABG TCO2 26 mmol/L (19-24); Allen Test Performed? Yes
[2023-09-29 07:32] LABS: Anion Gap 12 mmol/L; Blood Urea Nitrogen 91 mg/dL (9-20); Calcium 7.7 mg/dL (8.4-10.2); Carbon Dioxide 22 mmol/L (22-30); Chloride 98 mmol/L (98-107); Glucose 127 mg/dL (74-99); Potassium 4.5 mmol/L (3.5-5.1); Sodium 132 mmol/L (137-145)
[2023-09-29 07:37] LABS: Basophils # (A) 0.1 k/uL (0-0.2); Basophils % (A) 1 %; Eosinophils # (A) 0.1 k/uL (0-0.7); Eosinophils % (A) 1 %; HCT 23.5 % (39.0-53.0); Lymphocytes # (A) 0.8 k/uL (1.0-4.8); Lymphocytes % (A) 5 %; MCH 32.7 pg (25.0-35.0); MCHC 34.2 g/dL (31.0-37.0); MCV 95.8 fL (80.0-100.0); Mean Platelet Volume 8.9; Monocytes # (A) 0.8 k/uL (0-1.0); Monocytes % (A) 5 %; Neutrophils # (A) 16.3 k/uL (1.3-7.7); Neutrophils % (A) 89 %; Platelet Count 428 k/uL (150-450); RBC 2.45 m/uL (4.30-5.90); RDW 14.6 % (11.5-15.5); WBC 18.4 k/uL (3.8-10.6)
[2023-09-29 07:43] LABS: African American GFR (CKD) 15 (>60 ml/min/1.73 sqM); Non-African American GFR(CKD) 13 (>60 ml/min/1.73 sqM)
--- NOTE | 2023-09-29 09:10 | XR ---
EXAMINATION TYPE: XR chest 1V portable DATE OF EXAM: 09/29/2023 Comparison: 09/28/2023 Clinical History: 58 year-old male shortness of breath Findings: ET and NG tubes are satisfactory. Left subclavian CVC tip lower SVC. Heart normal size. Slight asymme tric elevation left hemidiaphragm is unchanged. Mild patchy interstitial densities are similar. Impression: Similar mild patchy bilateral interstitial densities.
--- NOTE | 2023-09-29 11:12 | P.PN ---
Subjective Patient is seen in follow-up for acute kidney injury. Started on hemodialysis September 20, 2023. Intubated. Off vasopressors. On IV Lasix. Urine output 40 to 50 cc an hour. Tolerated 3 L ultrafiltration yesterday. Vital signs are stable. General: Resting in bed. HEENT: Intubated. LUNGS: Scattered rhonchi. HEART: Rate and Rhythm are regular. ABDOMEN: No distention. EXTREMITITES: 1+ edema. Objective - Vital Signs Vital signs: Vital Signs Temp 98.0 F 09/29/23 08:00 Pulse 79 09/29/23 10:00 Resp 31 H 09/29/23 10:00 BP 126/71 09/29/23 10:00 Pulse Ox 96 09/29/23 10:00 FiO2 40 09/29/23 08:09 Intake & Output 09/28/23 09/29/23 09/29/23 18:59 06:59 18:59 Intake Total 1160.624 840.301 457.246 Output Total 4039 320 185 Balance -2878.376 520.301 272.246 Weight 89.8 kg Intake: IV 253 276 142 0.9 NS 223 240 80 CVP 30 36 12 cefTRIAXone 2 gm In 50 Sodium Chloride 0.9% 50 ml @ 100 mls/hr IVPB Q24HR [facility] Rx#:[id number] Intake, IV Titration 392.624 399.301 135.246 Amount Clevidipine Butyrate 25 29.267 mg In Empty Bag 1 bag @ 1 MG/HR 2 mls/hr IV .Q24H [facility] Rx#:[id number] fentaNYL (PF). 1,000 mcg 100 126.852 73.148 In Sodium Chloride 0.9% 80 ml @ 0.5 MCG/KG/HR 4. 196 mls/hr IV .[id number] [facility] Rx#:[id number] propofoL 1,000 mg In 263.357 272.449 62.098 Empty Bag 1 bag @ 15 MCG/ KG/MIN 7.552 mls/hr IV . [id number] [facility] Rx#:[id number] Oral 120 Tube Feeding 15 165 60 Hemodialysis 500 Output: Urine 539 320 185 Hemodialysis 3500 Other: Voiding Method Indwelling Catheter Indwelling Catheter Indwelling Catheter ABP, PAP, CO, CI - Last Documented Arterial Blood Pressure 153/70 - Labs CBC & Chem 7: 09/29/23 05:44 09/29/23 05:44 Labs: Abnormal Lab Results - Last 24 Hours (Table) 09/28/23 09/28/23 09/28/23 Range/Units 03:32 11:48 17:56 WBC (3.8-10.6) k/uL RBC (4.30-5.90) m/uL Hgb (13.0-17.5) gm/dL Hct (39.0-53.0) % Neutrophils # (1.3-7.7) k/uL Neutrophils # (Manual) 22.00 H (1.3-7.7) k/uL Lymphocytes # (1.0-4.8) k/uL Monocytes # (Manual) 1.04 H (0-1.0) k/uL Metamyelocytes # (Man) 0.52 H (0) k/uL Myelocytes # (Manual) 1.30 H (0) k/uL ABG pO2 (83-108) mmHg ABG Total CO2 (19-24) mmol/L ABG O2 Saturation (94-97) % Sodium (137-145) mmol/L BUN (9-20) mg/dL Creatinine (0.66-1.25) mg/dL Glucose (74-99) mg/dL POC Glucose (mg/dL) 150 H 134 H (70-110) mg/dL Calcium (8.4-10.2) mg/dL 09/28/23 09/29/23 09/29/23 Range/Units 23:17 05:44 05:44 WBC 18.4 H (3.8-10.6) k/uL RBC 2.45 L (4.30-5.90) m/uL Hgb 8.0 L (13.0-17.5) gm/dL Hct 23.5 L (39.0-53.0) % Neutrophils # 16.3 H (1.3-7.7) k/uL Neutrophils # (Manual) (1.3-7.7) k/uL Lymphocytes # 0.8 L (1.0-4.8) k/uL Monocytes # (Manual) (0-1.0) k/uL Metamyelocytes # (Man) (0) k/uL Myelocytes # (Manual) (0) k/uL ABG pO2 (83-108) mmHg ABG Total CO2 (19-24) mmol/L ABG O2 Saturation (94-97) % Sodium 132 L (137-145) mmol/L BUN 91 H (9-20) mg/dL Creatinine 4.58 H (0.66-1.25) mg/dL Glucose 127 H (74-99) mg/dL POC Glucose (mg/dL) 146 H (70-110) mg/dL Calcium 7.7 L (8.4-10.2) mg/dL 09/29/23 09/29/23 Range/Units 05:50 06:04 WBC (3.8-10.6) k/uL RBC (4.30-5.90) m/uL Hgb (13.0-17.5) gm/dL Hct (39.0-53.0) % Neutrophils # (1.3-7.7) k/uL Neutrophils # (Manual) (1.3-7.7) k/uL Lymphocytes # (1.0-4.8) k/uL Monocytes # (Manual) (0-1.0) k/uL Metamyelocytes # (Man) (0) k/uL Myelocytes # (Manual) (0) k/uL ABG pO2 134 H (83-108) mmHg ABG Total CO2 26 H (19-24) mmol/L ABG O2 Saturation 98.8 H (94-97) % Sodium (137-145) mmol/L BUN (9-20) mg/dL Creatinine (0.66-1.25) mg/dL Glucose (74-99) mg/dL POC Glucose (mg/dL) 137 H (70-110) mg/dL Calcium (8.4-10.2) mg/dL Microbiology - Last 24 Hours (Table) 09/23/23 14:10 Blood Culture - Final Blood Assessment and Plan Plan: Assessment: 1. Acute kidney injury secondary to ATN secondary to septic shock. Creatinine 0.8-0.9 in March 2023. This admission creatinine was near 6 with no improvement. Started on hemodialysis September 20, 2023. Has right femoral catheter. No hydronephrosis noted on imaging. On IV Lasix. Urine output 40-50 cc an hour. Elevated BUN partially due to steroids. 2. Septic shock secondary to pneumonia maintained on antibiotics. Urine Legionella antigen positive. 3. Acute hypoxic respiratory failure. On 40% FiO2. 4. Hypervolemic hyponatremia. Better. 5. Volume overload. Improving with ultrafiltration. 6. Metabolic acidosis secondary to acute kidney injury. Improved. 7. Hyperphosphatemia secondary to acute kidney injury. On PhosLo. Plan: Hemodialysis tomorrow. Receiving tube feeds. Wean FiO2. Avoid nephrotoxins. Monitor for renal recovery. Maintain IV Lasix. Serologies negative except for positive ROE. Maintain Aranesp. Notify vascular surgery for permanent dialysis catheter placement in the next 2 to 3 days.
[2023-09-29] MEDS ORDERED: MD COMMUNICATION TO PHARMACY 1 EACH MISC PO PRN (11:30)
--- NOTE | 2023-09-29 11:34 | P.PN ---
Subjective Progress Note Date: 09/29/23 Hospital Course: 58-year-old male with history of hypertension, dyslipidemia, coronary artery d isease presenting with shortness of breath. In the ED, temperature was 103.3, pulse 131, respiratory rate 30, blood pressure 118/86, saturating 88% on room air. WBC 21.2, hemoglobin 13, pH 7.41, pCO2 33, sodium 122, potassium 3.4, bicarb 18, anion gap 20, creatinine 5.94, lactic acid 3.9, magnesium 0.9, total bili 1.8, AST 110, ALT 53, ALP 105, troponin 0.102. Respiratory viral panel negative. Chest x-ray shows multifocal pneumonia right lower lobe greater than left. EKG shows sinus tachycardia with right bundle you block. Pelvic x-ray shows no acute process. Head CT shows no acute process. Pulmonology, nephrology, cardiology consulted. Respiratory function progressively worsening despite being on broad-spectrum antibiotics. Patient is was subsequently intubated, on vasopressors. Troponin mildly elevated 0.102, 0.116, 0.132. Cardiology consulted, Echo EF 50-55% with no regional wall motion abnormalities, likely Type II [place]. Right femoral HD catheter inserted 09/19, daily HD ordered by Nephrology. He underwent bronchoscopy with lavage on 09/19 with significant purulence noted in the RLL. Legionella Ag +, maintained on ceftriaxone and Levaquin. Vasopressin and Levophed weaned off 09/20. Remains sedated. Still on mechanical ventilated. Continue to be on dialysis. Patient will need permanent dialysis catheter. Subjective: Seen and examined at bedside. No acute events overnight. Remains intubated. No pressors. On propofol and fentanyl for sedation. Also on Cleviprex for hypertension. Adequate urine output. Did go through sedation holiday today, followed some commands, was having respiratory distress and was tachycardic and hypertensive, he is now back on sedation. Pertinent positives and negatives as discussed above, a complete review of systems was performed and all other systems are negative. Vitals Signs Reviewed. General: Intubated sedated Derm: Warm, dry Head: Atraumatic, normocephalic, symmetric Eyes: Pupils equal and reactive Mouth: No lip lesion, mucus membranes moist Cardiovascular: S1S2 reg, no murmur Lungs: Bilateral rhonchi, no accessory muscle use, mechanically ventilated Abdominal: Soft, nondistended, no guarding, no appreciable organomegaly Ext: No gross muscle atrophy, no edema, no contractures Neuro: Sedated Psych: Unable to assess Data Reviewed Today: Pertinent Labs: WBC 18.4, hemoglobin 8, pH 7.42, pCO2 38, sodium 132, creatinine 4.58, blood sugars range between 1 27-1 46 Imaging: Chest x-ray independently interpreted, shows persistent bilateral multifocal opacities similar to yesterday Assessment and Plan: Patient is critically ill, prognosis guarded. Acute hypoxic respiratory failure Ventilator dependent respiratory failure Legionella pneumonia Strep viridans bacteremia, suspected contaminant Septic shock secondary to above, resolved -Continue ceftriaxone 2 g IV every 24 hours, levofloxacin 500 IV every 48 hours (has received 4 doses so far) -Continue DuoNeb every 4 hours, Solu-Medrol 40 IV every 8 hours, monitor blood sugars, on sliding scale insulin -ID following -BAL positive for Farzana albicans, less likely to be fungal pneumonia -Pulmonology managing vent settings -Off of vasopressors -Consider further sedation holiday, continue to wean sedation, may consider Precedex drip while weaning off of sedation Acute kidney injury, on hemodialysis Hyperphosphatemia Microcytic anemia Hypertension Hypervolemic hyponatremia Hypocalcemia -Nephrology note reviewed, permanent dialysis catheter in 2 to 3 days, maintain IV Lasix 80 daily, continue PhosLo 3 times daily, darbepoetin weekly, continue dialysis -On hydralazine 50 3 times daily, IV hydralazine as needed, Cleviprex IV per pulmonology -Continue to hold lisinopril and hydrochlorothiazide -Repeat BMP, CBC tomorrow -Also on calcium carbonate 500 3 times daily Troponin elevation, Type II SD History of CAD -Plavix 75 mg PO QD. Metoprolol 25 mg PO BID. -Continue atorvastatin 80 daily Transaminitis -Abd US intermediate legion in the right hepatic lobe, MRI recommended. CBD within normal limits. Likely EtOH withdrawal while patient was sedated DVT ppx: Subcu heparin Code status: Full code Anticipated discharge place: Pending clinical course Anticipated discharge time: Pending clinical course Objective - Vital Signs Vital signs: Vital Signs Temp 98.0 F 09/29/23 08:00 Pulse 86 09/29/23 11:00 Resp 30 H 09/29/23 11:00 BP 126/71 09/29/23 10:00 Pulse Ox 95 09/29/23 11:00 FiO2 40 09/29/23 08:09 Intake & Output 09/28/23 09/29/23 09/29/23 18:59 06:59 18:59 Intake Total 1160.624 840.301 569.512 Output Total 4039 320 235 Balance -2878.376 520.301 334.512 Weight 89.8 kg Intake: IV 253 276 165 0.9 NS 223 240 100 CVP 30 36 15 cefTRIAXone 2 gm In 50 Sodium Chloride 0.9% 50 ml @ 100 mls/hr IVPB Q24HR [facility] Rx#:[id number] Intake, IV Titration 392.624 399.301 209.512 Amount Clevidipine Butyrate 25 29.267 mg In Empty Bag 1 bag @ 1 MG/HR 2 mls/hr IV .Q24H [facility] Rx#:[id number] fentaNYL (PF). 1,000 mcg 100 126.852 73.148 In Sodium Chloride 0.9% 80 ml @ 0.5 MCG/KG/HR 4. 196 mls/hr IV .[id number] [facility] Rx#:[id number] propofoL 1,000 mg In 263.357 272.449 136.364 Empty Bag 1 bag @ 15 MCG/ KG/MIN 7.552 mls/hr IV . [id number] [facility] Rx#:[id number] Oral 120 Tube Feeding 15 165 75 Hemodialysis 500 Output: Urine 539 320 235 Hemodialysis 3500 Other: Voiding Method Indwelling Catheter Indwelling Catheter Indwelling Catheter ABP, PAP, CO, CI - Last Documented Arterial Blood Pressure 169/75 - Labs CBC & Chem 7: 09/29/23 05:44 09/29/23 05:44 Labs: Abnormal Lab Results - Last 24 Hours (Table) 09/28/23 09/28/23 09/28/23 Range/Units 03:32 11:48 17:56 WBC (3.8-10.6) k/uL RBC (4.30-5.90) m/uL Hgb (13.0-17.5) gm/dL Hct (39.0-53.0) % Neutrophils # (1.3-7.7) k/uL Neutrophils # (Manual) 22.00 H (1.3-7.7) k/uL Lymphocytes # (1.0-4.8) k/uL Monocytes # (Manual) 1.04 H (0-1.0) k/uL Metamyelocytes # (Man) 0.52 H (0) k/uL Myelocytes # (Manual) 1.30 H (0) k/uL ABG pO2 (83-108) mmHg ABG Total CO2 (19-24) mmol/L ABG O2 Saturation (94-97) % Sodium (137-145) mmol/L BUN (9-20) mg/dL Creatinine (0.66-1.25) mg/dL Glucose (74-99) mg/dL POC Glucose (mg/dL) 150 H 134 H (70-110) mg/dL Calcium (8.4-10.2) mg/dL 09/28/23 09/29/23 09/29/23 Range/Units 23:17 05:44 05:44 WBC 18.4 H (3.8-10.6) k/uL RBC 2.45 L (4.30-5.90) m/uL Hgb 8.0 L (13.0-17.5) gm/dL Hct 23.5 L (39.0-53.0) % Neutrophils # 16.3 H (1.3-7.7) k/uL Neutrophils # (Manual) (1.3-7.7) k/uL Lymphocytes # 0.8 L (1.0-4.8) k/uL Monocytes # (Manual) (0-1.0) k/uL Metamyelocytes # (Man) (0) k/uL Myelocytes # (Manual) (0) k/uL ABG pO2 (83-108) mmHg ABG Total CO2 (19-24) mmol/L ABG O2 Saturation (94-97) % Sodium 132 L (137-145) mmol/L BUN 91 H (9-20) mg/dL Creatinine 4.58 H (0.66-1.25) mg/dL Glucose 127 H (74-99) mg/dL POC Glucose (mg/dL) 146 H (70-110) mg/dL Calcium 7.7 L (8.4-10.2) mg/dL 09/29/23 09/29/23 Range/Units 05:50 06:04 WBC (3.8-10.6) k/uL RBC (4.30-5.90) m/uL Hgb (13.0-17.5) gm/dL Hct (39.0-53.0) % Neutrophils # (1.3-7.7) k/uL Neutrophils # (Manual) (1.3-7.7) k/uL Lymphocytes # (1.0-4.8) k/uL Monocytes # (Manual) (0-1.0) k/uL Metamyelocytes # (Man) (0) k/uL Myelocytes # (Manual) (0) k/uL ABG pO2 134 H (83-108) mmHg ABG Total CO2 26 H (19-24) mmol/L ABG O2 Saturation 98.8 H (94-97) % Sodium (137-145) mmol/L BUN (9-20) mg/dL Creatinine (0.66-1.25) mg/dL Glucose (74-99) mg/dL POC Glucose (mg/dL) 137 H (70-110) mg/dL Calcium (8.4-10.2) mg/dL Microbiology - Last 24 Hours (Table) 09/23/23 14:10 Blood Culture - Final Blood
[2023-09-29] MEDS: DEXMEDETOMIDINE/0.9% NACL(PMX) 400 MCG in EMPTY BAG 1 BAG IV SCH (11:39)
[2023-09-29 11:50] LABS: Glucose,Whole Blood 130 mg/dL (70-110)
--- NOTE | 2023-09-29 12:20 | P.PN ---
Subjective Progress Note Date: 09/29/23 Principal diagnosis: Acute hypoxic respiratory failure secondary to Legionella pneumonia Patient is a 58-year-old white male with past medical history significant for hypertension, hyperlipidemia, nonocclusive coronary artery disease, and current everyday smoker. I am seeing this patient in the emergency room, after he presented yesterday afternoon with a chief complaint of generalized weakness, fall, shortness of breath and a productive cough. Patient states that starting Tuesday he developed a productive cough with yellow to green sputum. He progressively became more short of breath over the following days. Denies chest pain or hemoptysis. He noticed that he started developing fevers 2 nights ago. He has progressively become more weak. He has had reduced appetite and has not been drinking many oral fluids. He has been having nausea without vomiting. He had a fall yesterday. Denies hitting his head. He states that he more so lowered himself to the floor. States that he should have came in sooner. He is currently sitting in bed, on 3 L/min nasal cannula, he appears dyspneic. He is tachypneic with accessory muscle use. He was noted to be febrile on arrival with a Tmax of 103.3 F, which has been treated with Tylenol.. Chest x-ray demonstrates bilateral infiltrates, greater on the right mid and lower lobes. CBC on arrival demonstrates some leukocytosis with a WBC count of 21.2, otherwise unremarkable. BMP from yesterday has multiple electrolyte abnormalities including: Sodium 123, potassium 3.3, chloride 90, serum bicarb 14, BUN 53, creatinine 6.05, glucose 97. Lactic acid level was elevated at 3.9 and is down to 1.6. Magnesium level 0.9. LFTs mildly elevated. Total bili 1.8. Troponins elevated at 0.102, 0.116, and 0.132 respectively. Negative for influenza, RSV, COVID. Patient has been covered on broad-spectrum antibiotics including vancomycin, Zosyn, and azithromycin. Patient's current respiratory status is labile. On today's evaluation of 09/20/2023, the patient is being seen for a follow-up. Currently, the patient intubated on mechanical ventilator and sedated and paralyzed. This morning, the patient is on a propofol running at 30 mcg/kg/min and the patient is also on fentanyl at 0.3 mcg/kg/h. The patient is on Nimbex at 1 mcg/kg/min. While being on the mechanical ventilator, the patient assist- control mode at a rate of 30, tidal volume of 400, FiO2 is at 90% with a PEEP of 12. Urine output is in order of 20 to 30 cc an hour. Patient remains on norepinephrine running at 0.25 mcg/kg/min and the patient is also on physiologic dose of vasopressin. While on the mechanical ventilator, the peak airway pr essure is around 20, CVP is at 16. The patient was resuscitated with IV fluids and the fluid balance is +4.6 L over the past 24 hours. The blood gas shows a pH of 7.2 with a pCO2 of 45 and a pO2 of 86. Chest x-ray is consistent with bilateral pneumonia. The white cell count today is at 26.8 with a hemoglobin of 11 and a platelet count of 225. Sodium is at 123, potassium level is at 4.2, serum bicarb is at 15, BUN is at 7 6. Creatinine 6.85. The patient total calcium level is at 5.9 and the corrected calcium level is at 7.1. Phosphorus level is at 9.8. LFTs show an bilirubin of 1.2, AST of 420, ALT of 200. The patient remains on a combination of antibiotics including IV cefepime, va ncomycin and Zithromax. I performed a bronchoscopy endobronchial lavage of the right lower lobe. There was purulent respiratory secretions the right lung base that was suctioned out without any major difficulties. Blood cultures are negative thus far. The patient was also started on enteral feeding for nutritional support. Abdominal ultrasound showed normal common bile duct, normal kidneys without evidence of any hydronephrosis. Will on today's evaluation of 09/21/2023, the patient remains intubated on mechanical ventilator. Diagnosed having the Legionella pneumonia and urine antigen was positive. Bronchoscopy was done and the bronchial lavage results are still pending for now. This morning, the patient is on propofol running at 45 mcg/kg/min and the patient is also on fentanyl at 0.5 mcg/kg/h and Nimbex at 2 mcg/kg. Minutes. IV fluids are currently at KVO. Pressors have been off since midnight. The patient is hemodynamically stable. Underwent hemodialysis yesterday with a total of 2 L of ultrafiltration. Another session is in progress this morning. Remains on mechanical ventilator on assist-control mode and the patient is at rate of 30, tidal volume 400, FiO2 of 80% with a PEEP of 15. Blood gas showed pH of 7.42 with a pCO2 of 56 and pO2 of 101. Chest x-ray shows bilateral pulmonary consolidation consistent with pneumonia. Peak airway pressure is around 28. Patient is currently on Nepro at rate of 20 cc an hour. The white cell count of 25.8, hemoglobin 10.7 and a platelet count of 235. Blood gases was noted. Sodium levels at 129, potassium is at 4.2 with a BUN of 69 and creatinine of 6. LFTs are still mildly elevated. Vancomycin was discontinued. Zithromax was discontinued and the patient was started on Levaquin 500 mg every 48 hours. IV cefepime was maintained. 09/23/2023, the patient is being seen in a follow-up. He remains intubated on the mechanical ventilator. This morning, the patient on propofol at 25 mcg/kg/min and fentanyl at 2 mcg/kg/h. He is on assist-control mode of mechanical ventilation at rate of 30, tidal volume of 400, FiO2 50% with a PEEP of 15. Blood gas showed a pH of 7.35 with a pCO2 of 48 and pO2 of 82. The patient is on assist-control mode of mechanical ventilation. The blood gas from todayShows a pH of 7.35 with a pCO2 of 48 and pO2 of 72. Chest x-ray shows no major interval change and the patient continues to have bilateral pulmonary infiltrates and consolidations. The patient remains on cefepime and Levaquin. Note that the patient has been off paralytics for the past 48 hours. He grimaces to painful stimulation. He withdraws to painful stimulation in all 4 extremities. Fluid balance is -300 cc over the past 24 hours. IV fluids ordered for normal saline at rate of 10. Urine output is noted of 10 cc an hour. The patient is undergoing daily hemodialysis. Last hemodialysis session was yesterday a total of 2.5 L of fluid was removed. The patient remains on Nepro at rate of 41 cc an hour. The WBC count is at 16 with a hemoglobin 9.8 and a platelet count of 311. BUN is 77 with a creatinine of 6.2 and a sodium levels at 132 with a potassium level of 4. LFTs continue to improve. Afebrile. Hemodynamically stable on no pressors. No other significant events overnight. On 09/24/2023, the patient is being seen for a follow-up. He is intubated and mechanically ventilated. This morning, he is on a combination of propofol and fentanyl. Propofol is running at 65 mcg and fentanyl is at 2 mcg. He is on assist-control mode of mechanical ventilation at rate of 30, tidal volume of 400, FiO2 of 50% with a PEEP of 15. Blood gases showed pH of 7.34 with a pCO2 of 52 and pO2 of 88. The peak airway pressure is 30, static airway pressure is 28 and the chest x-ray findings are essentially unchanged. Remains on Nepro at 12 cc an hour. Urine output is in the order of 10 to 15 cc and the patient is undergoing daily hemodialysis. He is currently undergoing hemodialysis. He is hemodynamically stable on no pressors. He is afebrile. He is on Rocephin and Levaquin. He is also on IV Solu-Medrol and bronchodilators. No major changes in his condition. 09/25/2023, the patient is being seen for a follow-up. Some improvement in oxygenation compared to yesterday. 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 This morning, he remains on propofol at 25 mcg/kg/min and the patient is also on fentanyl at 2 mcg/kg/h. He is on IV fluids at KVO. Hemodialysis was done yesterday and the patient was ultrafiltrate to a total of 2.5 L. He is currently on assist-control mode of mechanical ventilation at rate of 30, tidal volume of 400, FiO2 40% and PEEP of 14. Blood gas from today shows a pH of 7.39 with a pCO2 of 42 and pO2 of 100. Chest x-ray showed atelectatic changes bilaterally in the left midlung in the right lower lobe. The patient continues to have some infiltration of the lung base bilaterally. ET tube is in a good location. The patient is receiving enteral feeding for nutritional support with Nepro at rate of 12 cc an hour. He is producing adequate amount of stools. WBC count at 22 with a hemoglobin of 9.6 and a platelet count of 342. Rest of the blood work shows a sodium level of 129, BUN of 88 and a creatinine of 5.47 and a potassium level is at 4.7. He remains on Levaquin and Rocephin. He remains on IV Solu-Medrol. He remains on bronchodilators. He remains on sliding scale insulin coverage. He is also on heparin subcu for DVT prophylaxis. Patient was placed today on 09/26/2023, patient remains in the ICU, intubated and mechanically ventilated. Patient is on assist-control rate of 3 0 tidal volume 400 FiO2 40% and PEEP of 12. ABG showed a pO2 of 63 pCO2 41 pH of 7.35, just in the flow rate from 50-65. Maintaining an I: E ratio of at least 1-2. Patient is sedated, he is on propofol and 70 mcg/kg/min he is also on fentanyl at 2 mcg/kg/h, he is receiving Nepro for nutritional support 12/12 mL/h. Patient was intubated on 09/18, remains intubated. He is receiving treatment for his Legionella pneumonia using Levaquin and Rocephin, he is also on bronchodilators for underlying COPD. Arterial line was lost yesterday, and I went ahead and established a new left radial arterial line. Chest x-ray continues to show bilateral infiltrates and left lower lobe atelectasis, positional changes noted bilaterally. WBC count remains high at 26.0, hemoglobin is 9.1. And his bands are 3%. ABG as noted earlier. Basic metabolic profile showed a bit of low sodium of 128, BUN is up to 128 creatinine 6.71. Patient is being followed by nephrology, started on hemodialysis on September 19, urine output is 50 to 60 cc/h, patient is on IV Lasix patient is scheduled to undergo hemodialysis today, and Lasix will be continued intermittently. Patient is also on aranesp as far as COPD is concerned, patient remains on DuoNeb, remains on methylprednisolone 60 every 6, patient is also on GI and DVT prophylaxis. Receiving pantoprazole 40 mg IV push daily, and on heparin subcu 5000 units subcu every 8 hours. Lasix is 80 mg IV push daily Patient was reevaluated today on 09/27/2023, heraclio in the ICU on assist-control r ate of 3 0 tidal volume 400 FiO2 40% PEEP was at 12 and I cut it down to 8. ABG showed a pO2 of 120 pCO2 42 pH of 7.37. Patient is still requiring relatively high dose of propofol at 70 mcg/kg/min, fentanyl 1.5 mcg/kg/h I cut down his propofol down to 50, and apparently yesterday off sedation, patient was able to track with his eyes, and he was able to follow very simple instructions but he was generally weak. Today I could even wake him up with painful stimuli, but does not follow any instructions. Hence the patient will be given another sedation holiday today and address the issue of assessment of mental status. Patient remains on nutritional support using Nepro at 15 mL/h which is goal. His Solu-Medrol was cut down to 40 mg IV push every 8 hours, patient remains on Rocephin and Levaquin, patient is responding to Lasix, and his creatinine is down to 5.13, most likely may not need dialysis although that is a consideration by nephrology. His blood cultures have been positive for Streptococcus viridans. Being addressed by infectious disease on the case, infectious disease is considering the possible contamination, and repeat blood cultures are pending. X-ray continues to show bilateral patchy interstitial infiltrates, not much of a change from baseline. WBC count is coming down to 23.9 hemoglobin is 9 basic metabolic profile is normal except renal profile showing a BUN of 99 creatinine of 5.13, slightly improved compared to yesterday. Procalcitonin remains high at 1.7 Patient was seen today on 09/28/2023, patient remains on assist-control rate of 30 tidal volume 400 FiO2 40% PEEP was 8 and I cut it down to 5 ABG showed a pO2 of 107 pCO2 37 pH of 7.36 patient is on propofol at 50 mcg/kg/min, fentanyl at 1.5 mcg/kg/h he is also on Cleviprex at 4 mg/h and on Nepro 15 mL/h. Patient is opening eyes, and unable to follow instructions. Hence I have advised cutting down the propofol further and hopefully cutting down the fentanyl further and start addressing mental status on a daily basis. Chest x-ray is showing improvement in his bilateral infiltrates. Patient continues to have low urine output about 30 to 40 cc/h, creatinine went up to 6.31 with BUN of 127, nephrology is planning hemodialysis on the patient today. Labs were reviewed WBC count is up to 25.9 hemoglobin 9.2. Overall the patient is basically about the same, no major change, I am hoping at least we could get down on lower doses of sedations and narcotics, and at least give the patient weaning trials if we can in the next day or 2 days. Patient was evaluated today on 09/29/2023, remains in the ICU, intubated and mechanically ventilated, patient is on assist-control rate of 3 0 tidal volume 400 FiO2 40% and PEEP of 5 ABG showed a pO2 of 134 pCO2 38 pH of 7.42, hence no changes made in vent settings. Patient received hemodialysis on 09/27, and 3 L of fluid were removed. Patient remains on propofol at 40 mcg/kg/min Fentanyl 1 mcg/kg/h IV fluids at KVO, and he is receiving nutritional support/Nepro at 15 mL/h. Patient is still on antibiotics for his Legionella pneumonia. Chest x- ray is showing minimal improvement in his bilateral interstitial infiltrates. Slight elevation of left hemidiaphragm is unchanged. WBC count today is 18.4 hemoglobin is 8, basic metabolic profile is normal BUN is 91 creatinine 4.58. Family is at bedside, and the family was updated on his condition today. And made aware that my plan is to continue daily assessment of mental status, and possibly weaning if the patient tolerates. Objective - Vital Signs Vital signs: Vital Signs Temp 98.3 F 09/29/23 12:00 Pulse 110 H 09/29/23 12:03 Resp 36 H 09/29/23 12:03 BP 143/80 09/29/23 12:00 Pulse Ox 95 09/29/23 12:00 FiO2 35 09/29/23 12:00 Intake & Output 09/28/23 09/29/23 09/29/23 18:59 06:59 18:59 Intake Total 1160.624 840.301 652.512 Output Total 4039 320 285 Balance -2878.376 520.301 367.512 Weight 89.8 kg Intake: IV 253 276 188 0.9 NS 223 240 120 CVP 30 36 18 cefTRIAXone 2 gm In 50 Sodium Chloride 0.9% 50 ml @ 100 mls/hr IVPB Q24HR [facility] Rx#:[id number] Intake, IV Titration 392.624 399.301 209.512 Amount Clevidipine Butyrate 25 29.267 mg In Empty Bag 1 bag @ 1 MG/HR 2 mls/hr IV .Q24H [facility] Rx#:[id number] fentaNYL (PF). 1,000 mcg 100 126.852 73.148 In Sodium Chloride 0.9% 80 ml @ 0.5 MCG/KG/HR 4. 196 mls/hr IV .[id number] [facility] Rx#:[id number] propofoL 1,000 mg In 263.357 272.449 136.364 Empty Bag 1 bag @ 15 MCG/ KG/MIN 7.552 mls/hr IV . [id number] [facility] Rx#:[id number] Oral 120 Tube Feeding 15 165 105 Hemodialysis 500 Other 30 Output: Urine 539 320 285 Hemodialysis 3500 Other: Voiding Method Indwelling Catheter Indwelling Catheter Indwelling Catheter ABP, PAP, CO, CI - Last Documented Arterial Blood Pressure 136/77 - Exam GENERAL EXAM: Reveals 58-year-old white male, intubated, mechanically ventilated, on propofol and fentanyl. Patient opens eyes, follows simple instructions. Like wiggling toes and squeezing hands. HEAD: Normocephalic and atraumatic endotracheal tube and orogastric tube are intact. EYES: Normal reaction of pupils, equal size. NOSE: Clear with pink turbinates. THROAT: No erythema or exudates. NECK: No masses, no JVD. CHEST: No chest wall deformity. LUNGS: Crackles at the bases persist. CVS: Distant S1-S2, no S3 gallop, no murmur. ABDOMEN: Soft nontender no megaly no rebound no guarding. SKIN: No rashes CENTRAL NERVOUS SYSTEM: Opens eyes, follows simple instructions EXTREMITIES: No clubbing edema or cyanosis - Labs CBC & Chem 7: 09/29/23 05:44 09/29/23 05:44 Labs: Abnormal Lab Results - Last 24 Hours (Table) 09/28/23 09/28/23 09/28/23 Range/Units 03:32 17:56 23:17 WBC (3.8-10.6) k/uL RBC (4.30-5.90) m/uL Hgb (13.0-17.5) gm/dL Hct (39.0-53.0) % Neutrophils # (1.3-7.7) k/uL Neutrophils # (Manual) 22.00 H (1.3-7.7) k/uL Lymphocytes # (1.0-4.8) k/uL Monocytes # (Manual) 1.04 H (0-1.0) k/uL Metamyelocytes # (Man) 0.52 H (0) k/uL Myelocytes # (Manual) 1.30 H (0) k/uL ABG pO2 (83-108) mmHg ABG Total CO2 (19-24) mmol/L ABG O2 Saturation (94-97) % Sodium (137-145) mmol/L BUN (9-20) mg/dL Creatinine (0.66-1.25) mg/dL Glucose (74-99) mg/dL POC Glucose (mg/dL) 134 H 146 H (70-110) mg/dL Calcium (8.4-10.2) mg/dL 09/29/23 09/29/23 09/29/23 Range/Units 05:44 05:44 05:50 WBC 18.4 H (3.8-10.6) k/uL RBC 2.45 L (4.30-5.90) m/uL Hgb 8.0 L (13.0-17.5) gm/dL Hct 23.5 L (39.0-53.0) % Neutrophils # 16.3 H (1.3-7.7) k/uL Neutrophils # (Manual) (1.3-7.7) k/uL Lymphocytes # 0.8 L (1.0-4.8) k/uL Monocytes # (Manual) (0-1.0) k/uL Metamyelocytes # (Man) (0) k/uL Myelocytes # (Manual) (0) k/uL ABG pO2 (83-108) mmHg ABG Total CO2 (19-24) mmol/L ABG O2 Saturation (94-97) % Sodium 132 L (137-145) mmol/L BUN 91 H (9-20) mg/dL Creatinine 4.58 H (0.66-1.25) mg/dL Glucose 127 H (74-99) mg/dL POC Glucose (mg/dL) 137 H (70-110) mg/dL Calcium 7.7 L (8.4-10.2) mg/dL 09/29/23 09/29/23 Range/Units 06:04 11:47 WBC (3.8-10.6) k/uL RBC (4.30-5.90) m/uL Hgb (13.0-17.5) gm/dL Hct (39.0-53.0) % Neutrophils # (1.3-7.7) k/uL Neutrophils # (Manual) (1.3-7.7) k/uL Lymphocytes # (1.0-4.8) k/uL Monocytes # (Manual) (0-1.0) k/uL Metamyelocytes # (Man) (0) k/uL Myelocytes # (Manual) (0) k/uL ABG pO2 134 H (83-108) mmHg ABG Total CO2 26 H (19-24) mmol/L ABG O2 Saturation 98.8 H (94-97) % Sodium (137-145) mmol/L BUN (9-20) mg/dL Creatinine (0.66-1.25) mg/dL Glucose (74-99) mg/dL POC Glucose (mg/dL) 130 H (70-110) mg/dL Calcium (8.4-10.2) mg/dL Microbiology - Last 24 Hours (Table) 09/23/23 14:10 Blood Culture - Final Blood Assessment and Plan Assessment: Impression: Acute hypoxic respiratory failure secondary to multilobar pneumonia secondary to Legionella pneumonia patient was intubated on 09/18, underwent bronchoscopy and lavage, urine Legionella antigen is positive, patient is maintained on Rocephin and on Levaquin. Remains intubated and mechanically ventilated. Septic shock, resolved, not requiring pressors Acute exacerbation of COPD, patient is on bronchodilators. Pulmonary status is gradually improving Acute kidney injury secondary to above/secondary to acute tubular necrosis and severe dehydration and sepsis on his initial presentation patient is now on hemodialysis intermittently last dialysis was 09/28/2023 Acute transaminitis secondary to sepsis Benign essential hypertension Dyslipidemia Coronary artery disease [id number] smoking history Bacteremia with Streptococcus viridans group D, being addressed by infectious disease on the case. Repeat cultures are negative so far from 09/24/2023 Recommendation: Continue ventilatory support, no changes made in vent settings today. Continue antibiotics for his underlying pneumonia presently on Levaquin and Rocephin Continue nutritional support, patient is presently on Nepro, at goal Intermittent hemodialysis last dialysis was yesterday Continue DVT prophylaxis Continue GI prophylaxis, on Protonix Continue bronchodilators Continue Solu-Medrol. Sedation interruption, today, and will likely transition the patient to Precedex and proceed to weaning if the patient tolerate Family updated on his condition today at bedside Patient remains critically ill Critical care time is over 30 minutes Time with Patient: Greater than 30
--- NOTE | 2023-09-29 17:28 | P.PN ---
Subjective Progress Note Date: 09/27/23 Principal diagnosis: Reason for follow-up is pneumonia and sepsis Patient is a 58-year-old male with a past medical history significant for hypertension [place] current everyday smoker presenting to the hospital for evaluation of increasing shortness of breath patient got intubated because of worsening respiratory status was noted to be septic secondary to pneumonia with evidence of right middle lobe infiltrate and urine for Legionella antigen came back positive. On today's evaluation that is 09/27/2023, Patient is afebrile patient is currently on the vent FiO2 stable at 40% no significant purulent secretion through the ET diarrhea or any other changes reported by the nurse. Patient not requiring any pressor support Patient white count is down to 23.9 creatinine is 5.13 Objective - Vital Signs Vital signs: Vital Signs Temp 98.8 F 09/27/23 12:00 Pulse 101 H 09/27/23 14:00 Resp 33 H 09/27/23 14:00 BP 140/81 09/27/23 14:00 Pulse Ox 94 L 09/27/23 14:00 FiO2 40 09/27/23 12:00 Intake & Output 09/26/23 09/27/23 09/27/23 18:59 06:59 18:59 Intake Total 3036.693 5490.211 616.015 Output Total 3825 440 365 Balance -2512.627 572.211 251.015 Weight 91.2 kg 91 kg Intake: IV 290 312 258 0.9 NS 237 312 156 CVP 3 52 cefTRIAXone 2 gm In 50 50 Sodium Chloride 0.9% 50 ml @ 100 mls/hr IVPB Q24HR [facility] Rx#:[id number] Intake, IV Titration 510.373 445.211 343.015 Amount Clevidipine Butyrate 25 59.366 0.267 8.666 mg In Empty Bag 1 bag @ 1 MG/HR 2 mls/hr IV .Q24H [facility] Rx#:[id number] fentaNYL (PF). 1,000 mcg 208.812 91.188 100 In Sodium Chloride 0.9% 80 ml @ 0.5 MCG/KG/HR 4. 196 mls/hr IV .[id number] [facility] Rx#:[id number] propofoL 1,000 mg In 242.195 353.756 234.349 Empty Bag 1 bag @ 15 MCG/ KG/MIN 7.552 mls/hr IV . [id number] [facility] Rx#:[id number] Tube Feeding 12 165 15 Hemodialysis 500 Other 90 Output: Urine 325 440 365 Hemodialysis 3500 Other: Voiding Method Indwelling Catheter Indwelling Catheter Indwelling Catheter # Bowel Movements 1 ABP, PAP, CO, CI - Last Documented Arterial Blood Pressure 150/58 - Exam GENERAL DESCRIPTION: Middle-age male intubated on the vent RESPIRATORY SYSTEM: Unlabored breathing , decreased breath sounds at bases HEART: S1 S2 regular rate and rhythm , ABDOMEN: Soft , no tenderness EXTREMITIES: No edema feet - Labs CBC & Chem 7: 09/29/23 05:44 09/29/23 05:44 Labs: Abnormal Lab Results - Last 24 Hours (Table) 09/26/23 09/26/23 09/27/23 Range/Units 17:38 23:28 03:52 WBC (3.8-10.6) k/uL RBC (4.30-5.90) m/uL Hgb (13.0-17.5) gm/dL Hct (39.0-53.0) % Neutrophils # (Manual) (1.3-7.7) k/uL Lymphocytes # (Manual) (1.0-4.8) k/uL Monocytes # (Manual) (0-1.0) k/uL Metamyelocytes # (Man) (0) k/uL Myelocytes # (Manual) (0) k/uL ABG pO2 (83-108) mmHg ABG Total CO2 (19-24) mmol/L ABG O2 Saturation (94-97) % Sodium (137-145) mmol/L Chloride (98-107) mmol/L BUN (9-20) mg/dL Creatinine (0.66-1.25) mg/dL Glucose (74-99) mg/dL POC Glucose (mg/dL) 194 H 166 H (70-110) mg/dL Calcium (8.4-10.2) mg/dL C-Reactive Protein (<1.0) mg/dL Procalcitonin 1.72 H (0.02-0.09) ng/mL 09/27/23 09/27/23 09/27/23 Range/Units 03:52 03:52 05:04 WBC 23.9 H (3.8-10.6) k/uL RBC 2.75 L (4.30-5.90) m/uL Hgb 9.0 L (13.0-17.5) gm/dL Hct 26.2 L (39.0-53.0) % Neutrophils # (Manual) 20.70 H (1.3-7.7) k/uL Lymphocytes # (Manual) 0.72 L (1.0-4.8) k/uL Monocytes # (Manual) 1.43 H (0-1.0) k/uL Metamyelocytes # (Man) 0.72 H (0) k/uL Myelocytes # (Manual) 0.72 H (0) k/uL ABG pO2 120 H (83-108) mmHg ABG Total CO2 26 H (19-24) mmol/L ABG O2 Saturation 98.4 H (94-97) % Sodium 130 L (137-145) mmol/L Chloride 93 L (98-107) mmol/L BUN 99 H (9-20) mg/dL Creatinine 5.13 H (0.66-1.25) mg/dL Glucose 158 H (74-99) mg/dL POC Glucose (mg/dL) (70-110) mg/dL Calcium 7.7 L (8.4-10.2) mg/dL C-Reactive Protein 3.0 H (<1.0) mg/dL Procalcitonin (0.02-0.09) ng/mL 09/27/23 09/27/23 Range/Units 05:27 11:48 WBC (3.8-10.6) k/uL RBC (4.30-5.90) m/uL Hgb (13.0-17.5) gm/dL Hct (39.0-53.0) % Neutrophils # (Manual) (1.3-7.7) k/uL Lymphocytes # (Manual) (1.0-4.8) k/uL Monocytes # (Manual) (0-1.0) k/uL Metamyelocytes # (Man) (0) k/uL Myelocytes # (Manual) (0) k/uL ABG pO2 (83-108) mmHg ABG Total CO2 (19-24) mmol/L ABG O2 Saturation (94-97) % Sodium (137-145) mmol/L Chloride (98-107) mmol/L BUN (9-20) mg/dL Creatinine (0.66-1.25) mg/dL Glucose (74-99) mg/dL POC Glucose (mg/dL) 155 H 161 H (70-110) mg/dL Calcium (8.4-10.2) mg/dL C-Reactive Protein (<1.0) mg/dL Procalcitonin (0.02-0.09) ng/mL Microbiology - Last 24 Hours (Table) 09/24/23 05:03 Blood Culture - Preliminary Blood 09/23/23 14:10 Blood Culture - Preliminary Blood 09/22/23 23:00 Legionella Culture - Preliminary Sputum Assessment and Plan (1) Legionella pneumonia Current Visit: Yes Status: Acute Code(s): A48.1 - LEGIONNAIRES' DISEASE SNOMED Code(s): 878217614 (2) Bacteremia Current Visit: Yes Status: Acute Code(s): R78.81 - BACTEREMIA SNOMED Code(s): 9169917 (3) Pneumonia Current Visit: Yes Status: Acute Code(s): J18.9 - PNEUMONIA, UNSPECIFIED ORGANISM SNOMED Code(s): 787491116 (4) Leukocytosis Current Visit: Yes Status: Acute Code(s): D72.829 - ELEVATED WHITE BLOOD CELL COUNT, UNSPECIFIED SNOMED Code(s): 917489688 Plan: 1patient presented hospital with sepsis in this patient who did have fever tachycardia elevated white count, in this patient with evidence of pneumonia and urine tested positive for Legionella antigen more likely etiology of the sepsis and pneumonia 2 patient did have a positive blood culture with a strep species which has been finalized as strep viridans, the patient repeat blood cultures are pending, patient is currently covered with the Rocephin 2 g daily 3-patient to a continue with the Levaquin for his underlying Legionella pneumonia 4-leukocytosis more likely steroid related patient white count is trending down and will monitor closely Dictation was produced using [employer] dictation software. please excuse any grammatical, word or spelling errors. Time with Patient: Less than 30
--- NOTE | 2023-09-29 17:29 | P.PN ---
Subjective Progress Note Date: 09/28/23 Principal diagnosis: Reason for follow-up is pneumonia and sepsis Patient is a 58-year-old male with a past medical history significant for hypertension [place] current everyday smoker presenting to the hospital for evaluation of increasing shortness of breath patient got intubated because of worsening respiratory status was noted to be septic secondary to pneumonia with evidence of right middle lobe infiltrate and urine for Legionella antigen came back positive. On today's evaluation that is 09/28/2023, patient has been afebrile, patient remains to be intubated on the vent FiO2 stable at 40% no purulent secretions through the ET patient not requiring any pressor support no diarrhea or any other changes reported by the nursing staff Patient white count is down to slightly up to 25.9 today creatinine 6.31 Objective - Vital Signs Vital signs: Vital Signs Temp 98.4 F 09/28/23 12:00 Pulse 75 09/28/23 13:00 Resp 0 L 09/28/23 13:00 BP 105/64 09/28/23 13:00 Pulse Ox 98 09/28/23 13:00 FiO2 40 09/28/23 12:00 Intake & Output 09/27/23 09/28/23 09/28/23 18:59 06:59 18:59 Intake Total 982.581 983.846 445.624 Output Total 525 490 364 Balance 457.581 493.846 81.624 Weight 93 kg Intake: IV 333 253 138 0.9 NS 231 253 123 CVP 52 15 cefTRIAXone 2 gm In 50 Sodium Chloride 0.9% 50 ml @ 100 mls/hr IVPB Q24HR [facility] Rx#:[id number] Intake, IV Titration 634.581 550.846 292.624 Amount Clevidipine Butyrate 25 18.766 128.467 29.267 mg In Empty Bag 1 bag @ 1 MG/HR 2 mls/hr IV .Q24H [facility] Rx#:[id number] Levofloxacin 500Mg-D5w 100 Pmx 500 mg In Dextrose/ Water 1 100ml.bag @ 100 mls/hr IVPB Q48H [facility] Rx#: [id number] fentaNYL (PF). 1,000 mcg 197.13 100 100 In Sodium Chloride 0.9% 80 ml @ 0.5 MCG/KG/HR 4. 196 mls/hr IV .[id number] [facility] Rx#:[id number] propofoL 1,000 mg In 318.685 322.379 163.357 Empty Bag 1 bag @ 15 MCG/ KG/MIN 7.552 mls/hr IV . [id number] [facility] Rx#:[id number] Tube Feeding 15 150 15 Other 30 Output: Urine 525 490 364 Other: Voiding Method Indwelling Catheter Indwelling Catheter Indwelling Catheter ABP, PAP, CO, CI - Last Documented Arterial Blood Pressure 132/59 - Exam GENERAL DESCRIPTION: Middle-age male intubated on the vent RESPIRATORY SYSTEM: Unlabored breathing , decreased breath sounds at bases HEART: S1 S2 regular rate and rhythm , ABDOMEN: Soft , no tenderness EXTREMITIES: No edema feet - Labs CBC & Chem 7: 09/29/23 05:44 09/29/23 05:44 Labs: Abnormal Lab Results - Last 24 Hours (Table) 09/27/23 09/27/23 09/28/23 Range/Units 18:09 23:15 03:32 WBC (3.8-10.6) k/uL RBC (4.30-5.90) m/uL Hgb (13.0-17.5) gm/dL Hct (39.0-53.0) % Plt Count (150-450) k/uL Neutrophils # (Manual) (1.3-7.7) k/uL Monocytes # (Manual) (0-1.0) k/uL Metamyelocytes # (Man) (0) k/uL Myelocytes # (Manual) (0) k/uL ABG O2 Saturation (94-97) % Sodium (137-145) mmol/L Chloride (98-107) mmol/L Carbon Dioxide (22-30) mmol/L BUN (9-20) mg/dL Creatinine (0.66-1.25) mg/dL Glucose (74-99) mg/dL POC Glucose (mg/dL) 124 H 138 H (70-110) mg/dL Calcium (8.4-10.2) mg/dL Magnesium 2.4 H (1.6-2.3) mg/dL 09/28/23 09/28/23 09/28/23 Range/Units 03:32 03:32 04:29 WBC 25.9 H (3.8-10.6) k/uL RBC 2.84 L (4.30-5.90) m/uL Hgb 9.2 L (13.0-17.5) gm/dL Hct 27.6 L (39.0-53.0) % Plt Count 473 H (150-450) k/uL Neutrophils # (Manual) 22.00 H (1.3-7.7) k/uL Monocytes # (Manual) 1.04 H (0-1.0) k/uL Metamyelocytes # (Man) 0.52 H (0) k/uL Myelocytes # (Manual) 1.30 H (0) k/uL ABG O2 Saturation 97.7 H (94-97) % Sodium 128 L (137-145) mmol/L Chloride 93 L (98-107) mmol/L Carbon Dioxide 17 L (22-30) mmol/L BUN 127 H* (9-20) mg/dL Creatinine 6.31 H (0.66-1.25) mg/dL Glucose 132 H (74-99) mg/dL POC Glucose (mg/dL) (70-110) mg/dL Calcium 8.0 L (8.4-10.2) mg/dL Magnesium (1.6-2.3) mg/dL 09/28/23 09/28/23 Range/Units 05:14 11:48 WBC (3.8-10.6) k/uL RBC (4.30-5.90) m/uL Hgb (13.0-17.5) gm/dL Hct (39.0-53.0) % Plt Count (150-450) k/uL Neutrophils # (Manual) (1.3-7.7) k/uL Monocytes # (Manual) (0-1.0) k/uL Metamyelocytes # (Man) (0) k/uL Myelocytes # (Manual) (0) k/uL ABG O2 Saturation (94-97) % Sodium (137-145) mmol/L Chloride (98-107) mmol/L Carbon Dioxide (22-30) mmol/L BUN (9-20) mg/dL Creatinine (0.66-1.25) mg/dL Glucose (74-99) mg/dL POC Glucose (mg/dL) 148 H 150 H (70-110) mg/dL Calcium (8.4-10.2) mg/dL Magnesium (1.6-2.3) mg/dL Microbiology - Last 24 Hours (Table) 09/24/23 05:03 Blood Culture - Preliminary Blood Assessment and Plan (1) Legionella pneumonia Current Visit: Yes Status: Acute Code(s): A48.1 - LEGIONNAIRES' DISEASE SNOMED Code(s): 216199814 (2) Bacteremia Current Visit: Yes Status: Acute Code(s): R78.81 - BACTEREMIA SNOMED Code(s): 6863865 (3) Pneumonia Current Visit: Yes Status: Acute Code(s): J18.9 - PNEUMONIA, UNSPECIFIED ORGANISM SNOMED Code(s): 775800704 (4) Leukocytosis Current Visit: Yes Status: Acute Code(s): D72.829 - ELEVATED WHITE BLOOD CELL COUNT, UNSPECIFIED SNOMED Code(s): 432804722 Plan: 1patient presented hospital with sepsis in this patient who did have fever tachycardia elevated white count, in this patient with evidence of pneumonia and urine tested positive for Legionella antigen more likely etiology of the sepsis and pneumonia 2 patient did have a positive blood culture with a strep species which has been finalized as strep viridans, the patient repeat blood cultures are pending, patient is currently covered with the Rocephin 2 g daily 3-patient currently covered with the Levaquin for his underlying Legionella pneumonia 4-leukocytosis more likely steroid related versus oropharyngeal candidiasis as the patient sputum is growing Farzana and will monitor for now Dictation was produced using [employer] dictation software. please excuse any grammatical, word or spelling errors. Time with Patient: Less than 30
--- NOTE | 2023-09-29 17:30 | P.PN ---
Subjective Progress Note Date: 09/29/23 Principal diagnosis: Reason for follow-up is pneumonia and sepsis Patient is a 58-year-old male with a past medical history significant for hypertension [place] current everyday smoker presenting to the hospital for evaluation of increasing shortness of breath patient got intubated because of worsening respiratory status was noted to be septic secondary to pneumonia with evidence of right middle lobe infiltrate and urine for Legionella antigen came back positive. On today's evaluation that is 09/29/2023,the patient continues to be afebrile patient remains to be intubated on the vent, the patient FiO2 stable at 40% no purulent secretions through the ET diarrhea or any other changes reported patient not requiring any pressor support. Patient white count is down to 18.4 creatinine is 4.58, blood culture repeat has been negative Objective - Vital Signs Vital signs: Vital Signs Temp 98.3 F 09/29/23 12:00 Pulse 92 09/29/23 15:00 Resp 32 H 09/29/23 15:00 BP 166/95 09/29/23 13:00 Pulse Ox 98 09/29/23 15:00 FiO2 35 09/29/23 12:00 Intake & Output 09/28/23 09/29/23 09/29/23 18:59 06:59 18:59 Intake Total 1160.624 937.012 3538.211 Output Total 4039 320 435 Balance -2878.376 520.301 590.211 Weight 89.8 kg 89.8 kg Intake: IV 253 276 248 0.9 NS 223 240 180 CVP 30 36 18 cefTRIAXone 2 gm In 50 Sodium Chloride 0.9% 50 ml @ 100 mls/hr IVPB Q24HR [facility] Rx#:[id number] Intake, IV Titration 392.624 399.301 312.211 Amount Clevidipine Butyrate 25 29.267 mg In Empty Bag 1 bag @ 1 MG/HR 2 mls/hr IV .Q24H [facility] Rx#:[id number] Dexmedetomidine/0.9% NaCl 47.146 (Pmx) 400 mcg In Empty Bag 1 bag @ 0.2 MCG/KG/HR 4.49 mls/hr IV .[id number] [facility] Rx#:[id number] fentaNYL (PF). 1,000 mcg 100 126.852 73.148 In Sodium Chloride 0.9% 80 ml @ 0.5 MCG/KG/HR 4. 196 mls/hr IV .[id number] [facility] Rx#:[id number] propofoL 1,000 mg In 263.357 272.449 191.917 Empty Bag 1 bag @ 15 MCG/ KG/MIN 7.552 mls/hr IV . [id number] [facility] Rx#:[id number] Oral 240 Tube Feeding 15 165 195 Hemodialysis 500 Other 30 Output: Urine 539 320 435 Hemodialysis 3500 Other: Voiding Method Indwelling Catheter Indwelling Catheter Indwelling Catheter ABP, PAP, CO, CI - Last Documented Arterial Blood Pressure 165/77 - Exam GENERAL DESCRIPTION: Middle-age male intubated on the vent RESPIRATORY SYSTEM: Unlabored breathing , decreased breath sounds at bases HEART: S1 S2 regular rate and rhythm , ABDOMEN: Soft , no tenderness EXTREMITIES: No edema feet - Labs CBC & Chem 7: 09/29/23 05:44 09/29/23 05:44 Labs: Abnormal Lab Results - Last 24 Hours (Table) 09/28/23 09/28/23 09/29/23 Range/Units 17:56 23:17 05:44 WBC 18.4 H (3.8-10.6) k/uL RBC 2.45 L (4.30-5.90) m/uL Hgb 8.0 L (13.0-17.5) gm/dL Hct 23.5 L (39.0-53.0) % Neutrophils # 16.3 H (1.3-7.7) k/uL Lymphocytes # 0.8 L (1.0-4.8) k/uL ABG pO2 (83-108) mmHg ABG Total CO2 (19-24) mmol/L ABG O2 Saturation (94-97) % Sodium (137-145) mmol/L BUN (9-20) mg/dL Creatinine (0.66-1.25) mg/dL Glucose (74-99) mg/dL POC Glucose (mg/dL) 134 H 146 H (70-110) mg/dL Calcium (8.4-10.2) mg/dL 09/29/23 09/29/23 09/29/23 Range/Units 05:44 05:50 06:04 WBC (3.8-10.6) k/uL RBC (4.30-5.90) m/uL Hgb (13.0-17.5) gm/dL Hct (39.0-53.0) % Neutrophils # (1.3-7.7) k/uL Lymphocytes # (1.0-4.8) k/uL ABG pO2 134 H (83-108) mmHg ABG Total CO2 26 H (19-24) mmol/L ABG O2 Saturation 98.8 H (94-97) % Sodium 132 L (137-145) mmol/L BUN 91 H (9-20) mg/dL Creatinine 4.58 H (0.66-1.25) mg/dL Glucose 127 H (74-99) mg/dL POC Glucose (mg/dL) 137 H (70-110) mg/dL Calcium 7.7 L (8.4-10.2) mg/dL 09/29/23 Range/Units 11:47 WBC (3.8-10.6) k/uL RBC (4.30-5.90) m/uL Hgb (13.0-17.5) gm/dL Hct (39.0-53.0) % Neutrophils # (1.3-7.7) k/uL Lymphocytes # (1.0-4.8) k/uL ABG pO2 (83-108) mmHg ABG Total CO2 (19-24) mmol/L ABG O2 Saturation (94-97) % Sodium (137-145) mmol/L BUN (9-20) mg/dL Creatinine (0.66-1.25) mg/dL Glucose (74-99) mg/dL POC Glucose (mg/dL) 130 H (70-110) mg/dL Calcium (8.4-10.2) mg/dL Microbiology - Last 24 Hours (Table) 09/24/23 05:03 Blood Culture - Final Blood 09/23/23 14:10 Blood Culture - Final Blood Assessment and Plan (1) Legionella pneumonia Current Visit: Yes Status: Acute Code(s): A48.1 - LEGIONNAIRES' DISEASE SNOMED Code(s): 376541643 (2) Bacteremia Current Visit: Yes Status: Acute Code(s): R78.81 - BACTEREMIA SNOMED Code(s): 1186930 (3) Pneumonia Current Visit: Yes Status: Acute Code(s): J18.9 - PNEUMONIA, UNSPECIFIED OR GANISM SNOMED Code(s): 990390864 (4) Leukocytosis Current Visit: Yes Status: Acute Code(s): D72.829 - ELEVATED WHITE BLOOD CELL COUNT, UNSPECIFIED SNOMED Code(s): 557009628 Plan: 1patient presented hospital with sepsis in this patient who did have fever tachycardia elevated white count, in this patient with evidence of pneumonia and urine tested positive for Legionella antigen more likely etiology of the sepsis and pneumonia 2 patient did have a positive blood culture with a strep species which has been finalized as strep viridans, the patient repeat blood cultures are pending, patient is currently covered with the Rocephin 2 g daily 3-patient currently covered with the Levaquin for his underlying Legionella pneumonia 4-leukocytosis more likely steroid related versus oropharyngeal candidiasis, the patient white count down to 18,000 and will Monitor closely Dictation was produced using [employer] dictation software. please excuse any grammatical, word or spelling errors.
[2023-09-29] MEDS: LEVOFLOXACIN 500MG-D5W PMX 500 MG in DEXTROSE/WATER 1 100ML.BAG IVPB SCH (17:38)
[2023-09-29 17:54] LABS: Glucose,Whole Blood 158 mg/dL (70-110)
[2023-09-29 23:42] LABS: Glucose,Whole Blood 133 mg/dL (70-110)
[2023-09-30 04:55] LABS: Basophils # (A) 0.1 k/uL (0-0.2); Basophils % (A) 0 %; Eosinophils # (A) 0.1 k/uL (0-0.7); Eosinophils % (A) 1 %; HCT 25.8 % (39.0-53.0); HGB 8.3 gm/dL (13.0-17.5); Lymphocytes # (A) 0.7 k/uL (1.0-4.8); Lymphocytes % (A) 4 %; MCH 31.6 pg (25.0-35.0); MCHC 32.4 g/dL (31.0-37.0); MCV 97.6 fL (80.0-100.0); Mean Platelet Volume 8.3; Monocytes # (A) 0.8 k/uL (0-1.0); Monocytes % (A) 4 %; Neutrophils # (A) 16.2 k/uL (1.3-7.7); Neutrophils % (A) 90 %; Platelet Count 461 k/uL (150-450); RBC 2.64 m/uL (4.30-5.90); WBC 18.1 k/uL (3.8-10.6)
[2023-09-30 05:03] LABS: Anion Gap 15 mmol/L; Carbon Dioxide 17 mmol/L (22-30); Chloride 99 mmol/L (98-107); Glucose 131 mg/dL (74-99); Potassium 5.2 mmol/L (3.5-5.1); Sodium 131 mmol/L (137-145)
[2023-09-30 05:09] LABS: African American GFR (CKD) 12 (>60 ml/min/1.73 sqM); Non-African American GFR(CKD) 10 (>60 ml/min/1.73 sqM)
[2023-09-30 05:14] LABS: Blood Urea Nitrogen 116 mg/dL (9-20)
[2023-09-30 06:07] LABS: Glucose,Whole Blood 140 mg/dL (70-110)
[2023-09-30 06:22] LABS: Allen Test Performed? Yes
[2023-09-30 06:26] LABS: ABG PCO2 39 mmHg (35-45); ABG PH 7.36 (7.35-7.45); ABG PO2 111 mmHg (83-108)
[2023-09-30 06:27] LABS: ABG HCO3 22 mmol/L (21-25); ABG TCO2 23 mmol/L (19-24)
[2023-09-30] MEDS: LORazepam 1 MG/0.5 ML VIAL IV PRN (10:34)
--- NOTE | 2023-09-30 10:46 | P.PN ---
Subjective Patient is seen in follow-up for acute kidney injury. Started on hemodialysis September 20, 2023. Intubated. Off vasopressors. On IV Lasix. Remains nonoliguric. BUN and creatinine trending up without dialysis. Vital signs are stable. General: Resting in bed. HEENT: Intubated. LUNGS: Scattered rhonchi. HEART: Rate and Rhythm are regular. ABDOMEN: No distention. EXTREMITITES: 1+ edema. Objective - Vital Signs Vital signs: Vital Signs Temp 98.7 F 09/30/23 04:00 Pulse 78 09/30/23 08:10 Resp 30 H 09/30/23 08:10 BP 156/92 09/30/23 07:00 Pulse Ox 97 09/30/23 07:00 FiO2 40 09/30/23 08:57 Intake & Output 09/29/23 09/30/23 09/30/23 18:59 06:59 18:59 Intake Total 2663.983 7204.455 50 Output Total 640 1160 100 Balance 707.203 -135.545 -50 Weight 89.8 kg 89.8 kg Intake: IV 328 220 20 0.9 NS 260 220 20 CVP 18 cefTRIAXone 2 gm In 50 Sodium Chloride 0.9% 50 ml @ 100 mls/hr IVPB Q24HR [facility] Rx#:[id number] Intake, IV Titration 344.203 504.455 Amount Dexmedetomidine/0.9% NaCl 79.138 430.539 (Pmx) 400 mcg In Empty Bag 1 bag @ 0.2 MCG/KG/HR 4.49 mls/hr IV .[id number] [facility] Rx#:[id number] fentaNYL (PF). 1,000 mcg 73.148 73.916 In Sodium Chloride 0.9% 80 ml @ 0.5 MCG/KG/HR 4. 196 mls/hr IV .[id number] [facility] Rx#:[id number] propofoL 1,000 mg In 191.917 Empty Bag 1 bag @ 15 MCG/ KG/MIN 7.552 mls/hr IV . [id number] [facility] Rx#:[id number] Oral 300 Tube Feeding 315 300 30 Other 60 Output: Urine 640 1160 100 Other: Voiding Method Indwelling Catheter Indwelling Catheter # Bowel Movements 1 1 ABP, PAP, CO, CI - Last Documented Arterial Blood Pressure 164/85 - Labs CBC & Chem 7: 09/30/23 04:22 09/30/23 04:22 Labs: Abnormal Lab Results - Last 24 Hours (Table) 09/29/23 09/29/23 09/29/23 Range/Units 11:47 17:53 23:40 WBC (3.8-10.6) k/uL RBC (4.30-5.90) m/uL Hgb (13.0-17.5) gm/dL Hct (39.0-53.0) % Plt Count (150-450) k/uL Neutrophils # (1.3-7.7) k/uL Lymphocytes # (1.0-4.8) k/uL ABG pO2 (83-108) mmHg ABG O2 Saturation (94-97) % Sodium (137-145) mmol/L Potassium (3.5-5.1) mmol/L Carbon Dioxide (22-30) mmol/L BUN (9-20) mg/dL Creatinine (0.66-1.25) mg/dL Glucose (74-99) mg/dL POC Glucose (mg/dL) 130 H 158 H 133 H (70-110) mg/dL Calcium (8.4-10.2) mg/dL 09/30/23 09/30/23 09/30/23 Range/Units 04:22 04:22 06:05 WBC 18.1 H (3.8-10.6) k/uL RBC 2.64 L (4.30-5.90) m/uL Hgb 8.3 L (13.0-17.5) gm/dL Hct 25.8 L (39.0-53.0) % Plt Count 461 H (150-450) k/uL Neutrophils # 16.2 H (1.3-7.7) k/uL Lymphocytes # 0.7 L (1.0-4.8) k/uL ABG pO2 (83-108) mmHg ABG O2 Saturation (94-97) % Sodium 131 L (137-145) mmol/L Potassium 5.2 H (3.5-5.1) mmol/L Carbon Dioxide 17 L (22-30) mmol/L BUN 116 H* (9-20) mg/dL Creatinine 5.45 H (0.66-1.25) mg/dL Glucose 131 H (74-99) mg/dL POC Glucose (mg/dL) 140 H (70-110) mg/dL Calcium 8.0 L (8.4-10.2) mg/dL 09/30/23 Range/Units 06:15 WBC (3.8-10.6) k/uL RBC (4.30-5.90) m/uL Hgb (13.0-17.5) gm/dL Hct (39.0-53.0) % Plt Count (150-450) k/uL Neutrophils # (1.3-7.7) k/uL Lymphocytes # (1.0-4.8) k/uL ABG pO2 111 H (83-108) mmHg ABG O2 Saturation 98.0 H (94-97) % Sodium (137-145) mmol/L Potassium (3.5-5.1) mmol/L Carbon Dioxide (22-30) mmol/L BUN (9-20) mg/dL Creatinine (0.66-1.25) mg/dL Glucose (74-99) mg/dL POC Glucose (mg/dL) (70-110) mg/dL Calcium (8.4-10.2) mg/dL Microbiology - Last 24 Hours (Table) 09/20/23 11:03 Acid Fast Bacilli Smear - Preliminary Bronchoalviolar Lavage - Right Acid Fast Bacilli Culture - Preliminary 09/24/23 05:03 Blood Culture - Final Blood Assessment and Plan Plan: Assessment: 1. Acute kidney injury secondary to ATN secondary to septic shock. Creatinine 0.8-0.9 in March 2023. This admission creatinine was near 6 with no improvement. Started on hemodialysis September 20, 2023. Has right femoral catheter. No hydronephrosis noted on imaging. On IV Lasix. Nonoliguric. Elevated BUN partially due to steroids. 2. Septic shock secondary to pneumonia maintained on antibiotics. Urine Legionella antigen positive. 3. Acute hypoxic respiratory failure. On 40% FiO2. 4. Hypervolemic hyponatremia. 5. Volume overload. Improving with ultrafiltration and diuresis. 6. Metabolic acidosis secondary to acute kidney injury. Improved. 7. Hyperphosphatemia secondary to acute kidney injury. On PhosLo. Plan: Hemodialysis today. Receiving tube feeds. Wean FiO2. Possible extubation today. Avoid nephrotoxins. Monitor for renal recovery. Maintain IV Lasix. Serologies negative except for positive ROE. Maintain Aranesp. Discussed with RN to notify vascular surgery for removal of temporary dialysis catheter and insertion of permanent dialysis catheter.
[2023-09-30 11:42] LABS: Glucose,Whole Blood 118 mg/dL (70-110)
--- NOTE | 2023-09-30 11:59 | P.PN ---
Subjective Progress Note Date: 09/30/23 Principal diagnosis: Acute hypoxic respiratory failure secondary to Legionella pneumonia Patient is a 58-year-old white male with past medical history significant for hypertension, hyperlipidemia, nonocclusive coronary artery disease, and current everyday smoker. I am seeing this patient in the emergency room, after he presented yesterday afternoon with a chief complaint of generalized weakness, fall, shortness of breath and a productive cough. Patient states that starting Tuesday he developed a productive cough with yellow to green sputum. He progressively became more short of breath over the following days. Denies chest pain or hemoptysis. He noticed that he started developing fevers 2 nights ago. He has progressively become more weak. He has had reduced appetite and has not been drinking many oral fluids. He has been having nausea without vomiting. He had a fall yesterday. Denies hitting his head. He states that he more so lowered himself to the floor. States that he should have came in sooner. He is currently sitting in bed, on 3 L/min nasal cannula, he appears dyspneic. He is tachypneic with accessory muscle use. He was noted to be febrile on arrival with a Tmax of 103.3 F, which has been treated with Tylenol.. Chest x-ray demonstrates bilateral infiltrates, greater on the right mid and lower lobes. CBC on arrival demonstrates some leukocytosis with a WBC count of 21.2, otherwise unremarkable. BMP from yesterday has multiple electrolyte abnormalities including: Sodium 123, potassium 3.3, chloride 90, serum bicarb 14, BUN 53, creatinine 6.05, glucose 97. Lactic acid level was elevated at 3.9 and is down to 1.6. Magnesium level 0.9. LFTs mildly elevated. Total bili 1.8. Troponins elevated at 0.102, 0.116, and 0.132 respectively. Negative for influenza, RSV, COVID. Patient has been covered on broad-spectrum antibiotics including vancomycin, Zosyn, and azithromycin. Patient's current respiratory status is labile. On today's evaluation of 09/20/2023, the patient is being seen for a follow-up. Currently, the patient intubated on mechanical ventilator and sedated and paralyzed. This morning, the patient is on a propofol running at 30 mcg/kg/min and the patient is also on fentanyl at 0.3 mcg/kg/h. The patient is on Nimbex at 1 mcg/kg/min. While being on the mechanical ventilator, the patient assist- control mode at a rate of 30, tidal volume of 400, FiO2 is at 90% with a PEEP of 12. Urine output is in order of 20 to 30 cc an hour. Patient remains on norepinephrine running at 0.25 mcg/kg/min and the patient is also on physiologic dose of vasopressin. While on the mechanical ventilator, the peak airway pr essure is around 20, CVP is at 16. The patient was resuscitated with IV fluids and the fluid balance is +4.6 L over the past 24 hours. The blood gas shows a pH of 7.2 with a pCO2 of 45 and a pO2 of 86. Chest x-ray is consistent with bilateral pneumonia. The white cell count today is at 26.8 with a hemoglobin of 11 and a platelet count of 225. Sodium is at 123, potassium level is at 4.2, serum bicarb is at 15, BUN is at 7 6. Creatinine 6.85. The patient total calcium level is at 5.9 and the corrected calcium level is at 7.1. Phosphorus level is at 9.8. LFTs show an bilirubin of 1.2, AST of 420, ALT of 200. The patient remains on a combination of antibiotics including IV cefepime, va ncomycin and Zithromax. I performed a bronchoscopy endobronchial lavage of the right lower lobe. There was purulent respiratory secretions the right lung base that was suctioned out without any major difficulties. Blood cultures are negative thus far. The patient was also started on enteral feeding for nutritional support. Abdominal ultrasound showed normal common bile duct, normal kidneys without evidence of any hydronephrosis. Will on today's evaluation of 09/21/2023, the patient remains intubated on mechanical ventilator. Diagnosed having the Legionella pneumonia and urine antigen was positive. Bronchoscopy was done and the bronchial lavage results are still pending for now. This morning, the patient is on propofol running at 45 mcg/kg/min and the patient is also on fentanyl at 0.5 mcg/kg/h and Nimbex at 2 mcg/kg. Minutes. IV fluids are currently at KVO. Pressors have been off since midnight. The patient is hemodynamically stable. Underwent hemodialysis yesterday with a total of 2 L of ultrafiltration. Another session is in progress this morning. Remains on mechanical ventilator on assist-control mode and the patient is at rate of 30, tidal volume 400, FiO2 of 80% with a PEEP of 15. Blood gas showed pH of 7.42 with a pCO2 of 56 and pO2 of 101. Chest x-ray shows bilateral pulmonary consolidation consistent with pneumonia. Peak airway pressure is around 28. Patient is currently on Nepro at rate of 20 cc an hour. The white cell count of 25.8, hemoglobin 10.7 and a platelet count of 235. Blood gases was noted. Sodium levels at 129, potassium is at 4.2 with a BUN of 69 and creatinine of 6. LFTs are still mildly elevated. Vancomycin was discontinued. Zithromax was discontinued and the patient was started on Levaquin 500 mg every 48 hours. IV cefepime was maintained. 09/23/2023, the patient is being seen in a follow-up. He remains intubated on the mechanical ventilator. This morning, the patient on propofol at 25 mcg/kg/min and fentanyl at 2 mcg/kg/h. He is on assist-control mode of mechanical ventilation at rate of 30, tidal volume of 400, FiO2 50% with a PEEP of 15. Blood gas showed a pH of 7.35 with a pCO2 of 48 and pO2 of 82. The patient is on assist-control mode of mechanical ventilation. The blood gas from todayShows a pH of 7.35 with a pCO2 of 48 and pO2 of 72. Chest x-ray shows no major interval change and the patient continues to have bilateral pulmonary infiltrates and consolidations. The patient remains on cefepime and Levaquin. Note that the patient has been off paralytics for the past 48 hours. He grimaces to painful stimulation. He withdraws to painful stimulation in all 4 extremities. Fluid balance is -300 cc over the past 24 hours. IV fluids ordered for normal saline at rate of 10. Urine output is noted of 10 cc an hour. The patient is undergoing daily hemodialysis. Last hemodialysis session was yesterday a total of 2.5 L of fluid was removed. The patient remains on Nepro at rate of 41 cc an hour. The WBC count is at 16 with a hemoglobin 9.8 and a platelet count of 311. BUN is 77 with a creatinine of 6.2 and a sodium levels at 132 with a potassium level of 4. LFTs continue to improve. Afebrile. Hemodynamically stable on no pressors. No other significant events overnight. On 09/24/2023, the patient is being seen for a follow-up. He is intubated and mechanically ventilated. This morning, he is on a combination of propofol and fentanyl. Propofol is running at 65 mcg and fentanyl is at 2 mcg. He is on assist-control mode of mechanical ventilation at rate of 30, tidal volume of 400, FiO2 of 50% with a PEEP of 15. Blood gases showed pH of 7.34 with a pCO2 of 52 and pO2 of 88. The peak airway pressure is 30, static airway pressure is 28 and the chest x-ray findings are essentially unchanged. Remains on Nepro at 12 cc an hour. Urine output is in the order of 10 to 15 cc and the patient is undergoing daily hemodialysis. He is currently undergoing hemodialysis. He is hemodynamically stable on no pressors. He is afebrile. He is on Rocephin and Levaquin. He is also on IV Solu-Medrol and bronchodilators. No major changes in his condition. 09/25/2023, the patient is being seen for a follow-up. Some improvement in oxygenation compared to yesterday. 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 This morning, he remains on propofol at 25 mcg/kg/min and the patient is also on fentanyl at 2 mcg/kg/h. He is on IV fluids at KVO. Hemodialysis was done yesterday and the patient was ultrafiltrate to a total of 2.5 L. He is currently on assist-control mode of mechanical ventilation at rate of 30, tidal volume of 400, FiO2 40% and PEEP of 14. Blood gas from today shows a pH of 7.39 with a pCO2 of 42 and pO2 of 100. Chest x-ray showed atelectatic changes bilaterally in the left midlung in the right lower lobe. The patient continues to have some infiltration of the lung base bilaterally. ET tube is in a good location. The patient is receiving enteral feeding for nutritional support with Nepro at rate of 12 cc an hour. He is producing adequate amount of stools. WBC count at 22 with a hemoglobin of 9.6 and a platelet count of 342. Rest of the blood work shows a sodium level of 129, BUN of 88 and a creatinine of 5.47 and a potassium level is at 4.7. He remains on Levaquin and Rocephin. He remains on IV Solu-Medrol. He remains on bronchodilators. He remains on sliding scale insulin coverage. He is also on heparin subcu for DVT prophylaxis. Patient was placed today on 09/26/2023, patient remains in the ICU, intubated and mechanically ventilated. Patient is on assist-control rate of 3 0 tidal volume 400 FiO2 40% and PEEP of 12. ABG showed a pO2 of 63 pCO2 41 pH of 7.35, just in the flow rate from 50-65. Maintaining an I: E ratio of at least 1-2. Patient is sedated, he is on propofol and 70 mcg/kg/min he is also on fentanyl at 2 mcg/kg/h, he is receiving Nepro for nutritional support 12/12 mL/h. Patient was intubated on 09/18, remains intubated. He is receiving treatment for his Legionella pneumonia using Levaquin and Rocephin, he is also on bronchodilators for underlying COPD. Arterial line was lost yesterday, and I went ahead and established a new left radial arterial line. Chest x-ray continues to show bilateral infiltrates and left lower lobe atelectasis, positional changes noted bilaterally. WBC count remains high at 26.0, hemoglobin is 9.1. And his bands are 3%. ABG as noted earlier. Basic metabolic profile showed a bit of low sodium of 128, BUN is up to 128 creatinine 6.71. Patient is being followed by nephrology, started on hemodialysis on September 19, urine output is 50 to 60 cc/h, patient is on IV Lasix patient is scheduled to undergo hemodialysis today, and Lasix will be continued intermittently. Patient is also on aranesp as far as COPD is concerned, patient remains on DuoNeb, remains on methylprednisolone 60 every 6, patient is also on GI and DVT prophylaxis. Receiving pantoprazole 40 mg IV push daily, and on heparin subcu 5000 units subcu every 8 hours. Lasix is 80 mg IV push daily Patient was reevaluated today on 09/27/2023, heraclio in the ICU on assist-control r ate of 3 0 tidal volume 400 FiO2 40% PEEP was at 12 and I cut it down to 8. ABG showed a pO2 of 120 pCO2 42 pH of 7.37. Patient is still requiring relatively high dose of propofol at 70 mcg/kg/min, fentanyl 1.5 mcg/kg/h I cut down his propofol down to 50, and apparently yesterday off sedation, patient was able to track with his eyes, and he was able to follow very simple instructions but he was generally weak. Today I could even wake him up with painful stimuli, but does not follow any instructions. Hence the patient will be given another sedation holiday today and address the issue of assessment of mental status. Patient remains on nutritional support using Nepro at 15 mL/h which is goal. His Solu-Medrol was cut down to 40 mg IV push every 8 hours, patient remains on Rocephin and Levaquin, patient is responding to Lasix, and his creatinine is down to 5.13, most likely may not need dialysis although that is a consideration by nephrology. His blood cultures have been positive for Streptococcus viridans. Being addressed by infectious disease on the case, infectious disease is considering the possible contamination, and repeat blood cultures are pending. X-ray continues to show bilateral patchy interstitial infiltrates, not much of a change from baseline. WBC count is coming down to 23.9 hemoglobin is 9 basic metabolic profile is normal except renal profile showing a BUN of 99 creatinine of 5.13, slightly improved compared to yesterday. Procalcitonin remains high at 1.7 Patient was seen today on 09/28/2023, patient remains on assist-control rate of 30 tidal volume 400 FiO2 40% PEEP was 8 and I cut it down to 5 ABG showed a pO2 of 107 pCO2 37 pH of 7.36 patient is on propofol at 50 mcg/kg/min, fentanyl at 1.5 mcg/kg/h he is also on Cleviprex at 4 mg/h and on Nepro 15 mL/h. Patient is opening eyes, and unable to follow instructions. Hence I have advised cutting down the propofol further and hopefully cutting down the fentanyl further and start addressing mental status on a daily basis. Chest x-ray is showing improvement in his bilateral infiltrates. Patient continues to have low urine output about 30 to 40 cc/h, creatinine went up to 6.31 with BUN of 127, nephrology is planning hemodialysis on the patient today. Labs were reviewed WBC count is up to 25.9 hemoglobin 9.2. Overall the patient is basically about the same, no major change, I am hoping at least we could get down on lower doses of sedations and narcotics, and at least give the patient weaning trials if we can in the next day or 2 days. Patient was evaluated today on 09/29/2023, remains in the ICU, intubated and mechanically ventilated, patient is on assist-control rate of 3 0 tidal volume 400 FiO2 40% and PEEP of 5 ABG showed a pO2 of 134 pCO2 38 pH of 7.42, hence no changes made in vent settings. Patient received hemodialysis on 09/27, and 3 L of fluid were removed. Patient remains on propofol at 40 mcg/kg/min Fentanyl 1 mcg/kg/h IV fluids at KVO, and he is receiving nutritional support/Nepro at 15 mL/h. Patient is still on antibiotics for his Legionella pneumonia. Chest x- ray is showing minimal improvement in his bilateral interstitial infiltrates. Slight elevation of left hemidiaphragm is unchanged. WBC count today is 18.4 hemoglobin is 8, basic metabolic profile is normal BUN is 91 creatinine 4.58. Family is at bedside, and the family was updated on his condition today. And made aware that my plan is to continue daily assessment of mental status, and possibly weaning if the patient tolerates. Patient was reevaluated today on 09/30/2023, remains in the ICU, remains on assist-control mode of mechanical ventilation with rate of 3 0 tidal volume 400 FiO2 40% and PEEP of 5 ABG showed a pO2 of 111 pCO2 39 pH of 7.36. Patient remains on fentanyl at 2 mcg/kg/h, on Precedex at 1.4 mcg/kg/h off propofol, patient is more awake, however he does not seem to concentrate, follows simple instructions but seems to be not tracking, and constantly shrugging his lucia ulders. Patient is scheduled to have hemodialysis today, and his chest x-ray is showing worsening interstitial edema hence I will hold on weaning trials but may give the patient a trial of pressure support of 14 and have a backup rate of IMV 10. However this will be done after hemodialysis today. Fentanyl will be cut down and may be discontinued once the weaning process starts. WBC count is 18 .1, improving over the last few days basic metabolic profile is abnormal with bicarb of 17 BUN is 116 creatinine is up to 5.45, hence nephrology is planning hemodialysis again on this patient today, chest x-ray is suggestive of interstitial edema and small left pleural effusion Objective - Vital Signs Vital signs: Vital Signs Temp 98.9 F 09/30/23 08:00 Pulse 90 09/30/23 11:35 Resp 21 09/30/23 11:35 BP 162/88 09/30/23 11:00 Pulse Ox 96 09/30/23 11:00 FiO2 40 09/30/23 11:18 Intake & Output 09/29/23 09/30/23 09/30/23 18:59 06:59 18:59 Intake Total 4525.656 7221.455 130 Output Total 640 1160 515 Balance 707.203 -135.545 -385 Weight 89.8 kg 89.8 kg Intake: IV 328 220 100 0.9 NS 260 220 100 CVP 18 cefTRIAXone 2 gm In 50 Sodium Chloride 0.9% 50 ml @ 100 mls/hr IVPB Q24HR [facility] Rx#:[id number] Intake, IV Titration 344.203 504.455 Amount Dexmedetomidine/0.9% NaCl 79.138 430.539 (Pmx) 400 mcg In Empty Bag 1 bag @ 0.2 MCG/KG/HR 4.49 mls/hr IV .[id number] [facility] Rx#:[id number] fentaNYL (PF). 1,000 mcg 73.148 73.916 In Sodium Chloride 0.9% 80 ml @ 0.5 MCG/KG/HR 4. 196 mls/hr IV .[id number] [facility] Rx#:[id number] propofoL 1,000 mg In 191.917 Empty Bag 1 bag @ 15 MCG/ KG/MIN 7.552 mls/hr IV . [id number] [facility] Rx#:[id number] Oral 300 Tube Feeding 315 300 30 Other 60 Output: Urine 640 1160 515 Other: Voiding Method Indwelling Catheter Indwelling Catheter Indwelling Catheter # Bowel Movements 1 1 ABP, PAP, CO, CI - Last Documented Arterial Blood Pressure 121/101 - Exam GENERAL EXAM: Reveals 58-year-old white male, intubated, mechanically ventilated, on Precedex and fentanyl HEAD: Normocephalic and atraumatic endotracheal tube and orogastric tube are intact. EYES: Normal reaction of pupils, equal size. NOSE: Clear with pink turbinates. THROAT: No erythema or exudates. NECK: No masses, no JVD. CHEST: No chest wall deformity. LUNGS: Crackles and rhonchi noted bilaterally CVS: Distant S1-S2, no S3 gallop, no murmur. ABDOMEN: Soft nontender no megaly no rebound no guarding. SKIN: No rashes CENTRAL NERVOUS SYSTEM: Opens eyes, follows simple instructions, patient is not tracking and not focusing intermittently shrugging his shoulders for no purpose. EXTREMITIES: No clubbing edema or cyanosis - Labs CBC & Chem 7: 09/30/23 04:22 09/30/23 04:22 Labs: Abnormal Lab Results - Last 24 Hours (Table) 09/29/23 09/29/23 09/30/23 Range/Units 17:53 23:40 04:22 WBC 18.1 H (3.8-10.6) k/uL RBC 2.64 L (4.30-5.90) m/uL Hgb 8.3 L (13.0-17.5) gm/dL Hct 25.8 L (39.0-53.0) % Plt Count 461 H (150-450) k/uL Neutrophils # 16.2 H (1.3-7.7) k/uL Lymphocytes # 0.7 L (1.0-4.8) k/uL ABG pO2 (83-108) mmHg ABG O2 Saturation (94-97) % Sodium (137-145) mmol/L Potassium (3.5-5.1) mmol/L Carbon Dioxide (22-30) mmol/L BUN (9-20) mg/dL Creatinine (0.66-1.25) mg/dL Glucose (74-99) mg/dL POC Glucose (mg/dL) 158 H 133 H (70-110) mg/dL Calcium (8.4-10.2) mg/dL 09/30/23 09/30/23 09/30/23 Range/Units 04:22 06:05 06:15 WBC (3.8-10.6) k/uL RBC (4.30-5.90) m/uL Hgb (13.0-17.5) gm/dL Hct (39.0-53.0) % Plt Count (150-450) k/uL Neutrophils # (1.3-7.7) k/uL Lymphocytes # (1.0-4.8) k/uL ABG pO2 111 H (83-108) mmHg ABG O2 Saturation 98.0 H (94-97) % Sodium 131 L (137-145) mmol/L Potassium 5.2 H (3.5-5.1) mmol/L Carbon Dioxide 17 L (22-30) mmol/L BUN 116 H* (9-20) mg/dL Creatinine 5.45 H (0.66-1.25) mg/dL Glucose 131 H (74-99) mg/dL POC Glucose (mg/dL) 140 H (70-110) mg/dL Calcium 8.0 L (8.4-10.2) mg/dL 09/30/23 Range/Units 11:40 WBC (3.8-10.6) k/uL RBC (4.30-5.90) m/uL Hgb (13.0-17.5) gm/dL Hct (39.0-53.0) % Plt Count (150-450) k/uL Neutrophils # (1.3-7.7) k/uL Lymphocytes # (1.0-4.8) k/uL ABG pO2 (83-108) mmHg ABG O2 Saturation (94-97) % Sodium (137-145) mmol/L Potassium (3.5-5.1) mmol/L Carbon Dioxide (22-30) mmol/L BUN (9-20) mg/dL Creatinine (0.66-1.25) mg/dL Glucose (74-99) mg/dL POC Glucose (mg/dL) 118 H (70-110) mg/dL Calcium (8.4-10.2) mg/dL Microbiology - Last 24 Hours (Table) 09/20/23 11:03 Acid Fast Bacilli Smear - Preliminary Bronchoalviolar Lavage - Right Acid Fast Bacilli Culture - Preliminary 09/24/23 05:03 Blood Culture - Final Blood Assessment and Plan Assessment: Impression: Acute hypoxic respiratory failure secondary to multilobar pneumonia secondary to Legionella pneumonia patient was intubated on 09/18, underwent bronchoscopy and lavage, urine Legionella antigen is positive, patient is maintained on Rocephin and on Levaquin. Remains intubated and mechanically ventilated. Septic shock, resolved, not requiring pressors Acute exacerbation of COPD, patient is on bronchodilators. Pulmonary status is gradually improving Acute kidney injury secondary to above/secondary to acute tubular necrosis and severe dehydration and sepsis on his initial presentation patient is now on hemodialysis intermittently last dialysis was 09/28/2023 Acute transaminitis secondary to sepsis Benign essential hypertension Dyslipidemia Coronary artery disease [id number] smoking history Bacteremia with Streptococcus viridans group D, being addressed by infectious d fer on the case. Repeat cultures are negative so far from 09/24/2023 Recommendation: Continue ventilatory support, plan to hold sedation today completely continue with Precedex, and give the patient hopefully weaning trial with pressure support and IMV weaning Continue antibiotics for his underlying pneumonia presently on Levaquin and Rocephin Continue nutritional support, patient is presently on Nepro, at goal Hemodialysis today. Continue GI prophylaxis, on Protonix Continue bronchodilators Continue Solu-Medrol. Daily assessment of sedation and daily assessment for weaning Patient remains critically ill Critical care time is over 30 minutes Time with Patient: Greater than 30
--- NOTE | 2023-09-30 12:05 | XR ---
EXAMINATION TYPE: XR chest 1V DATE OF EXAM: 09/30/2023 COMPARISON: 09/29/2023 HISTORY: 58-year-old male intubation TECHNIQUE: Single frontal view of the chest is obtained. FINDINGS: ET and NG tubes are satisfactory. Left subclavian CVC tip cavoatrial junction. Heart were aligned in size. Interstitial and patchy opacities especially in the mid and lower lungs. Small left effusion. IMPRESSION: Bilateral interstitial and patchy opacities greatest in the mid and lower lungs. Possibl e small left effusion. Worsening from prior exam.
--- NOTE | 2023-09-30 13:51 | P.PN ---
Subjective Progress Note Date: 09/30/23 58-year-old male with history of hypertension, dyslipidemia, coronary artery disease presenting with shortness of breath. In the ED, temperature was 103.3, pulse 131, respiratory rate 30, blood pressure 118/86, saturating 88% on room air. WBC 21.2, hemoglobin 13, pH 7.41, pCO2 33, sodium 122, potassium 3.4, bicarb 18, anion gap 20, creatinine 5.94, lactic acid 3.9, magnesium 0.9, total bili 1.8, AST 110, ALT 53, ALP 105, troponin 0.102. Respiratory viral panel negative. Chest x-ray shows multifocal pneumonia right lower lobe greater than left. EKG shows sinus tachycardia with right bundle you block. Pelvic x-ray shows no acute process. Head CT shows no acute process. Pulmonology, nephrolo gy, cardiology consulted. Respiratory function progressively worsening despite being on broad-spectrum antibiotics. Patient is was subsequently intubated, on vasopressors. Troponin mildly elevated 0.102, 0.116, 0.132. 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 Right femoral HD catheter inserted 09/19, daily HD ordered by Nephrology. He underwent bronchoscopy with lavage on 09/19 with significant purulence noted in the RLL. Legionella Ag +, maintained on Rocephin and Levaquin. Vasopressin and Levophed weaned off 09/20. Noted to be agitated on max dose of Fentanyl and Propofol, tachycardic and hypertensive, started on Ativan and CIWA protocol. 09/29 Patient was seen and examined. Intubated. Currently on Dexamedetomidine running at 1.4 mcg/kg/hr, Fentenyl drip 2 mcg/kg/hr. Continued on Lasix 80 mg IV QD. Antibiotics include Levaquin and Rocephin. Receiving intermitted ativan per CIWA protocol. CBC WBC 18.1 Hg 8.3 Hct 25.8, Plt 461. ABG pH 7.36, pCO2 39. BMP Na 131, K 5.2, bicarb 17, BUN 116, Cr 5.45, glu 131, Ca 8. CXR shows persistent bilateral infiltrates. Plans for HD today. General: Intubated and awake Derm: warm, dry Head: atraumatic, normocephalic, symmetric Eyes: no lid lag, normal sclera Mouth: no lip lesion, mucus membranes moist Cardiovascular: Normal S1 S2 tachycardic. No murmurs, rubs, gallops Lungs: Coarse BS BL, no accessory muscle use Ext: no gross muscle atrophy, trace LE edema, no contractures Neuro: Intubated and awake Psych: Intubated and awake Based on my assessment of this patient, this patient meets a high complexity level of care. Acute hypoxic respiratory failure due to below Septic shock due to Legionella pneumonia: Levofloxacin 500 mg IV Q48H started 09/19 and Rocephin 2g IV QD (switched from Cefepime). Vancomycin and Azithromycin discontinued. Levophed titrated to maintain MAP > 65. DuoNeb Q4H. SoluMedrol 40 mg IV TID. Telemetry monitoring. BAL Cx alfonzo albicans. BCx streptococcus v iridans. Pulmonary on board. ID on board. Strep viridans bacteremia: Repeat BCx 09/23 and 09/22 negative. Continued on Rocephin 2g IV QD. Possible contaminant. Likely EtOH withdrawal: Ativan PRN per CIWA scale. Dexmedetomidine as above. Troponin elevation, Type II MN: Plavix 75 mg PO QD. Metoprolol 25 mg PO BID. Lipitor 80 mg PO QD. Acute kidney injury: Hold Lisinopril-HCTZ. HD catheter inserted 09/19. Plans for daily HD. Needs permenant HD catheter. Nephrology on board. Hyperkalemia: Related to renal disease. Lasix 80 mg IV QD. Hopeful improvement with HD. Metabolic acidosis: Related to renal disease. Hopeful improvement with HD. Hypertension: Hydralazine 50 mg PO TID. Currently weaned off Clevidipine drip since 09/27. Hyponatremia: Likely related to severe dehydration and Legionella. Hypocalcemia: Status post 1g Ca gluconate 09/19. Ca today 8. Tums 500 mg PO TID. Transaminitis: Abd US intermediate legion in the right hepatic lobe, MRI recommended. CBD within normal limits. Normocytic anemia: Stable. no signs of active bleeding. Monitor. CODE STATUS: FULL CODE DVT Prophylaxis: Heparin SQ GI Prophylaxis: Protonix IV Designated medical POA if patient is not able to make medical decisions for themselves: I have reviewed the following websphere consultant notes: Pulmonary, ID, Nephrology. I have reviewed the results of the following tests: CBC. BMP. ABG I have ordered the following tests: Daily CBC, CXR and BMP. I have discussed the care of this patient with the following independent historian: I have independently interpreted the following test below: CXR I have discussed the management of this patient with the following physician: Objective - Vital Signs Vital signs: Vital Signs Temp 98.7 F 09/30/23 04:00 Pulse 84 09/30/23 07:00 Resp 30 H 09/30/23 07:00 BP 156/92 09/30/23 07:00 Pulse Ox 97 09/30/23 07:00 FiO2 40 09/30/23 07:00 Intake & Output 09/29/23 09/30/23 09/30/23 18:59 06:59 18:59 Intake Total 3309.371 4886.455 50 Output Total 640 1160 100 Balance 707.203 -135.545 -50 Weight 89.8 kg 89.8 kg Intake: IV 328 220 20 0.9 NS 260 220 20 CVP 18 cefTRIAXone 2 gm In 50 Sodium Chloride 0.9% 50 ml @ 100 mls/hr IVPB Q24HR [facility] Rx#:[id number] Intake, IV Titration 344.203 504.455 Amount Dexmedetomidine/0.9% NaCl 79.138 430.539 (Pmx) 400 mcg In Empty Bag 1 bag @ 0.2 MCG/KG/HR 4.49 mls/hr IV .[id number] [facility] Rx#:[id number] fentaNYL (PF). 1,000 mcg 73.148 73.916 In Sodium Chloride 0.9% 80 ml @ 0.5 MCG/KG/HR 4. 196 mls/hr IV .[id number] [facility] Rx#:[id number] propofoL 1,000 mg In 191.917 Empty Bag 1 bag @ 15 MCG/ KG/MIN 7.552 mls/hr IV . [id number] [facility] Rx#:[id number] Oral 300 Tube Feeding 315 300 30 Other 60 Output: Urine 640 1160 100 Other: Voiding Method Indwelling Catheter Indwelling Catheter # Bowel Movements 1 1 ABP, PAP, CO, CI - Last Documented Arterial Blood Pressure 164/85 - Labs CBC & Chem 7: 09/30/23 04:22 09/30/23 04:22 Labs: Abnormal Lab Results - Last 24 Hours (Table) 09/29/23 09/29/23 09/29/23 Range/Units 05:44 05:44 11:47 WBC 18.4 H (3.8-10.6) k/uL RBC 2.45 L (4.30-5.90) m/uL Hgb 8.0 L (13.0-17.5) gm/dL Hct 23.5 L (39.0-53.0) % Plt Count (150-450) k/uL Neutrophils # 16.3 H (1.3-7.7) k/uL Lymphocytes # 0.8 L (1.0-4.8) k/uL ABG pO2 (83-108) mmHg ABG O2 Saturation (94-97) % Sodium 132 L (137-145) mmol/L Potassium (3.5-5.1) mmol/L Carbon Dioxide (22-30) mmol/L BUN 91 H (9-20) mg/dL Creatinine 4.58 H (0.66-1.25) mg/dL Glucose 127 H (74-99) mg/dL POC Glucose (mg/dL) 130 H (70-110) mg/dL Calcium 7.7 L (8.4-10.2) mg/dL 09/29/23 09/29/23 09/30/23 Range/Units 17:53 23:40 04:22 WBC 18.1 H (3.8-10.6) k/uL RBC 2.64 L (4.30-5.90) m/uL Hgb 8.3 L (13.0-17.5) gm/dL Hct 25.8 L (39.0-53.0) % Plt Count 461 H (150-450) k/uL Neutrophils # 16.2 H (1.3-7.7) k/uL Lymphocytes # 0.7 L (1.0-4.8) k/uL ABG pO2 (83-108) mmHg ABG O2 Saturation (94-97) % Sodium (137-145) mmol/L Potassium (3.5-5.1) mmol/L Carbon Dioxide (22-30) mmol/L BUN (9-20) mg/dL Creatinine (0.66-1.25) mg/dL Glucose (74-99) mg/dL POC Glucose (mg/dL) 158 H 133 H (70-110) mg/dL Calcium (8.4-10.2) mg/dL 09/30/23 09/30/23 09/30/23 Range/Units 04:22 06:05 06:15 WBC (3.8-10.6) k/uL RBC (4.30-5.90) m/uL Hgb (13.0-17.5) gm/dL Hct (39.0-53.0) % Plt Count (150-450) k/uL Neutrophils # (1.3-7.7) k/uL Lymphocytes # (1.0-4.8) k/uL ABG pO2 111 H (83-108) mmHg ABG O2 Saturation 98.0 H (94-97) % Sodium 131 L (137-145) mmol/L Potassium 5.2 H (3.5-5.1) mmol/L Carbon Dioxide 17 L (22-30) mmol/L BUN 116 H* (9-20) mg/dL Creatinine 5.45 H (0.66-1.25) mg/dL Glucose 131 H (74-99) mg/dL POC Glucose (mg/dL) 140 H (70-110) mg/dL Calcium 8.0 L (8.4-10.2) mg/dL Microbiology - Last 24 Hours (Table) 09/20/23 11:03 Acid Fast Bacilli Smear - Preliminary Bronchoalviolar Lavage - Right Acid Fast Bacilli Culture - Preliminary 09/24/23 05:03 Blood Culture - Final Blood
--- NOTE | 2023-09-30 15:57 | P.PN ---
Subjective Progress Note Date: 09/30/23 Principal diagnosis: Reason for follow-up is pneumonia and sepsis Patient is a 58-year-old male with a past medical history significant for hypertension [place] current everyday smoker presenting to the hospital for evaluation of increasing shortness of breath patient got intubated because of worsening respiratory status was noted to be septic secondary to pneumonia with evidence of right middle lobe infiltrate and urine for Legionella antigen came back positive. On today's evaluation that is 09/30/2023,the patient remains to be afebrile, patient is on the ventilator FiO2 stable at 40% no significant purulent secretions through the ET diarrhea or any changes reported by nursing staff. Patient white count is 18.1, creatinine is 5.45 blood culture repeat has been ne gative Objective - Vital Signs Vital signs: Vital Signs Temp 98.9 F 09/30/23 08:00 Pulse 90 09/30/23 11:35 Resp 21 09/30/23 11:35 BP 162/88 09/30/23 11:00 Pulse Ox 96 09/30/23 11:00 FiO2 40 09/30/23 11:18 Intake & Output 09/29/23 09/30/23 09/30/23 18:59 06:59 18:59 Intake Total 7371.339 0724.455 130 Output Total 640 1160 515 Balance 707.203 -135.545 -385 Weight 89.8 kg 89.8 kg Intake: IV 328 220 100 0.9 NS 260 220 100 CVP 18 cefTRIAXone 2 gm In 50 Sodium Chloride 0.9% 50 ml @ 100 mls/hr IVPB Q24HR [facility] Rx#:[id number] Intake, IV Titration 344.203 504.455 Amount Dexmedetomidine/0.9% NaCl 79.138 430.539 (Pmx) 400 mcg In Empty Bag 1 bag @ 0.2 MCG/KG/HR 4.49 mls/hr IV .[id number] [facility] Rx#:[id number] fentaNYL (PF). 1,000 mcg 73.148 73.916 In Sodium Chloride 0.9% 80 ml @ 0.5 MCG/KG/HR 4. 196 mls/hr IV .[id number] [facility] Rx#:[id number] propofoL 1,000 mg In 191.917 Empty Bag 1 bag @ 15 MCG/ KG/MIN 7.552 mls/hr IV . [id number] [facility] Rx#:[id number] Oral 300 Tube Feeding 315 300 30 Other 60 Output: Urine 640 1160 515 Other: Voiding Method Indwelling Catheter Indwelling Catheter Indwelling Catheter # Bowel Movements 1 1 ABP, PAP, CO, CI - Last Documented Arterial Blood Pressure 121/101 - Exam GENERAL DESCRIPTION: Middle-age male intubated on the vent RESPIRATORY SYSTEM: Unlabored breathing , decreased breath sounds at bases HEART: S1 S2 regular rate and rhythm , ABDOMEN: Soft , no tenderness EXTREMITIES: No edema feet - Labs CBC & Chem 7: 09/30/23 04:22 09/30/23 04:22 Labs: Abnormal Lab Results - Last 24 Hours (Table) 09/29/23 09/29/23 09/30/23 Range/Units 17:53 23:40 04:22 WBC 18.1 H (3.8-10.6) k/uL RBC 2.64 L (4.30-5.90) m/uL Hgb 8.3 L (13.0-17.5) gm/dL Hct 25.8 L (39.0-53.0) % Plt Count 461 H (150-450) k/uL Neutrophils # 16.2 H (1.3-7.7) k/uL Lymphocytes # 0.7 L (1.0-4.8) k/uL ABG pO2 (83-108) mmHg ABG O2 Saturation (94-97) % Sodium (137-145) mmol/L Potassium (3.5-5.1) mmol/L Carbon Dioxide (22-30) mmol/L BUN (9-20) mg/dL Creatinine (0.66-1.25) mg/dL Glucose (74-99) mg/dL POC Glucose (mg/dL) 158 H 133 H (70-110) mg/dL Calcium (8.4-10.2) mg/dL 09/30/23 09/30/23 09/30/23 Range/Units 04:22 06:05 06:15 WBC (3.8-10.6) k/uL RBC (4.30-5.90) m/uL Hgb (13.0-17.5) gm/dL Hct (39.0-53.0) % Plt Count (150-450) k/uL Neutrophils # (1.3-7.7) k/uL Lymphocytes # (1.0-4.8) k/uL ABG pO2 111 H (83-108) mmHg ABG O2 Saturation 98.0 H (94-97) % Sodium 131 L (137-145) mmol/L Potassium 5.2 H (3.5-5.1) mmol/L Carbon Dioxide 17 L (22-30) mmol/L BUN 116 H* (9-20) mg/dL Creatinine 5.45 H (0.66-1.25) mg/dL Glucose 131 H (74-99) mg/dL POC Glucose (mg/dL) 140 H (70-110) mg/dL Calcium 8.0 L (8.4-10.2) mg/dL 09/30/23 Range/Units 11:40 WBC (3.8-10.6) k/uL RBC (4.30-5.90) m/uL Hgb (13.0-17.5) gm/dL Hct (39.0-53.0) % Plt Count (150-450) k/uL Neutrophils # (1.3-7.7) k/uL Lymphocytes # (1.0-4.8) k/uL ABG pO2 (83-108) mmHg ABG O2 Saturation (94-97) % Sodium (137-145) mmol/L Potassium (3.5-5.1) mmol/L Carbon Dioxide (22-30) mmol/L BUN (9-20) mg/dL Creatinine (0.66-1.25) mg/dL Glucose (74-99) mg/dL POC Glucose (mg/dL) 118 H (70-110) mg/dL Calcium (8.4-10.2) mg/dL Microbiology - Last 24 Hours (Table) 09/20/23 11:03 Acid Fast Bacilli Smear - Preliminary Bronchoalviolar Lavage - Right Acid Fast Bacilli Culture - Preliminary 09/24/23 05:03 Blood Culture - Final Blood Assessment and Plan (1) Legionella pneumonia Current Visit: Yes Status: Acute Code(s): A48.1 - LEGIONNAIRES' DISEASE SNOMED Code(s): 699364775 (2) Bacteremia Current Visit: Yes Status: Acute Code(s): R78.81 - BACTEREMIA SNOMED Code(s): 6731377 (3) Pneumonia Current Visit: Yes Status: Acute Code(s): J18.9 - PNEUMONIA, UNSPECIFIED ORGANISM SNOMED Code(s): 745747005 (4) Leukocytosis Current Visit: Yes Status: Acute Code(s): D72.829 - ELEVATED WHITE BLOOD CELL COUNT, UNSPECIFIED SNOMED Code(s): 766952727 Plan: 1patient presented hospital with sepsis in this patient who did have fever tachycardia elevated white count, in this patient with evidence of pneumonia and urine tested positive for Legionella antigen more likely etiology of the sepsis and pneumonia 2 patient did have a positive blood culture with a strep species which has been finalized as strep viridans, the patient repeat blood cultures are pending, patient is currently covered with the Rocephin 2 g daily 3-patient to continue with the Levaquin for his underlying Legionella pneumonia 4-leukocytosis more likely steroid related versus oropharyngeal candidiasis, the patient white count stable around 18,000 and no worsening noticed will monitor closely Dictation was produced using [employer] dictation software. please excuse any grammatical, word or spelling errors. Time with Patient: Less than 30
[2023-09-30 18:09] LABS: Glucose,Whole Blood 128 mg/dL (70-110)
[2023-09-30 23:55] LABS: Glucose,Whole Blood 143 mg/dL (70-110)
[2023-10-01 06:01] LABS: HCT 23.4 % (39.0-53.0); HGB 7.8 gm/dL (13.0-17.5); MCH 31.9 pg (25.0-35.0); MCHC 33.4 g/dL (31.0-37.0); MCV 95.5 fL (80.0-100.0); Mean Platelet Volume 8.7; Platelet Count 423 k/uL (150-450); RBC 2.45 m/uL (4.30-5.90); RDW 14.1 % (11.5-15.5); WBC 14.5 k/uL (3.8-10.6)
[2023-10-01 06:04] LABS: Glucose,Whole Blood 148 mg/dL (70-110)
[2023-10-01 06:08] LABS: Allen Test Performed? Yes
[2023-10-01 06:14] LABS: ABG HCO3 25 mmol/L (21-25); ABG PCO2 38 mmHg (35-45); ABG PH 7.42 (7.35-7.45); ABG PO2 115 mmHg (83-108)
[2023-10-01 06:15] LABS: ABG Base Excess 0.2 mmol/L; ABG TCO2 26 mmol/L (19-24)
[2023-10-01 06:15] LABS: Anion Gap 11 mmol/L; Blood Urea Nitrogen 97 mg/dL (9-20); Carbon Dioxide 22 mmol/L (22-30); Chloride 98 mmol/L (98-107); Glucose 151 mg/dL (74-99); Potassium 4.4 mmol/L (3.5-5.1); Sodium 131 mmol/L (137-145)
[2023-10-01 06:21] LABS: African American GFR (CKD) 15 (>60 ml/min/1.73 sqM); Non-African American GFR(CKD) 13 (>60 ml/min/1.73 sqM)
--- NOTE | 2023-10-01 09:18 | XR ---
EXAMINATION TYPE: XR chest 1V DATE OF EXAM: 10/01/2023 COMPARISON: 09/30/2023 HISTORY: 58-year-old male intubated, ICU follow-up TECHNIQUE: Single frontal view of the chest is obtained. FINDINGS: ET and NG tubes are satisfactory. Heart normal size. Patchy bilateral opacities especially in the mid and lower lungs with slight interval improvement in the left base. Left subclavian CVC ti p cavoatrial junction. IMPRESSION: Ongoing multifocal patchy infiltrates though with slight improvement at the left base.
[2023-10-01 09:27] LABS: ABG Base Excess 1.4 mmol/L; ABG HCO3 25 mmol/L (21-25); ABG Oxygen Saturation 97.6 % (94-97); ABG PCO2 37 mmHg (35-45); ABG PH 7.45 (7.35-7.45); ABG PO2 97 mmHg (83-108); Allen Test Performed? Yes
[2023-10-01] MEDS ORDERED: IPRATROPIUM-ALBUTEROL 3 ML NEB INHALATION PRN (09:48)
--- NOTE | 2023-10-01 10:04 | P.PN ---
Subjective Progress Note Date: 10/01/23 Principal diagnosis: Acute hypoxic respiratory failure secondary to Legionella pneumonia Patient is a 58-year-old white male with past medical history significant for hypertension, hyperlipidemia, nonocclusive coronary artery disease, and current everyday smoker. I am seeing this patient in the emergency room, after he presented yesterday afternoon with a chief complaint of generalized weakness, fall, shortness of breath and a productive cough. Patient states that starting Tuesday he developed a productive cough with yellow to green sputum. He progressively became more short of breath over the following days. Denies chest pain or hemoptysis. He noticed that he started developing fevers 2 nights ago. He has progressively become more weak. He has had reduced appetite and has not been drinking many oral fluids. He has been having nausea without vomiting. He had a fall yesterday. Denies hitting his head. He states that he more so lowered himself to the floor. States that he should have came in sooner. He is currently sitting in bed, on 3 L/min nasal cannula, he appears dyspneic. He is tachypneic with accessory muscle use. He was noted to be febrile on arrival with a Tmax of 103.3 F, which has been treated with Tylenol.. Chest x-ray demonstrates bilateral infiltrates, greater on the right mid and lower lobes. CBC on arrival demonstrates some leukocytosis with a WBC count of 21.2, otherwise unremarkable. BMP from yesterday has multiple electrolyte abnormalities including: Sodium 123, potassium 3.3, chloride 90, serum bicarb 14, BUN 53, creatinine 6.05, glucose 97. Lactic acid level was elevated at 3.9 and is down to 1.6. Magnesium level 0.9. LFTs mildly elevated. Total bili 1.8. Troponins elevated at 0.102, 0.116, and 0.132 respectively. Negative for influenza, RSV, COVID. Patient has been covered on broad-spectrum antibiotics including vancomycin, Zosyn, and azithromycin. Patient's current respiratory status is labile. On today's evaluation of 09/20/2023, the patient is being seen for a follow-up. Currently, the patient intubated on mechanical ventilator and sedated and paralyzed. This morning, the patient is on a propofol running at 30 mcg/kg/min and the patient is also on fentanyl at 0.3 mcg/kg/h. The patient is on Nimbex at 1 mcg/kg/min. While being on the mechanical ventilator, the patient assist- control mode at a rate of 30, tidal volume of 400, FiO2 is at 90% with a PEEP of 12. Urine output is in order of 20 to 30 cc an hour. Patient remains on norepinephrine running at 0.25 mcg/kg/min and the patient is also on physiologic dose of vasopressin. While on the mechanical ventilator, the peak airway pr essure is around 20, CVP is at 16. The patient was resuscitated with IV fluids and the fluid balance is +4.6 L over the past 24 hours. The blood gas shows a pH of 7.2 with a pCO2 of 45 and a pO2 of 86. Chest x-ray is consistent with bilateral pneumonia. The white cell count today is at 26.8 with a hemoglobin of 11 and a platelet count of 225. Sodium is at 123, potassium level is at 4.2, serum bicarb is at 15, BUN is at 7 6. Creatinine 6.85. The patient total calcium level is at 5.9 and the corrected calcium level is at 7.1. Phosphorus level is at 9.8. LFTs show an bilirubin of 1.2, AST of 420, ALT of 200. The patient remains on a combination of antibiotics including IV cefepime, va ncomycin and Zithromax. I performed a bronchoscopy endobronchial lavage of the right lower lobe. There was purulent respiratory secretions the right lung base that was suctioned out without any major difficulties. Blood cultures are negative thus far. The patient was also started on enteral feeding for nutritional support. Abdominal ultrasound showed normal common bile duct, normal kidneys without evidence of any hydronephrosis. Will on today's evaluation of 09/21/2023, the patient remains intubated on mechanical ventilator. Diagnosed having the Legionella pneumonia and urine antigen was positive. Bronchoscopy was done and the bronchial lavage results are still pending for now. This morning, the patient is on propofol running at 45 mcg/kg/min and the patient is also on fentanyl at 0.5 mcg/kg/h and Nimbex at 2 mcg/kg. Minutes. IV fluids are currently at KVO. Pressors have been off since midnight. The patient is hemodynamically stable. Underwent hemodialysis yesterday with a total of 2 L of ultrafiltration. Another session is in progress this morning. Remains on mechanical ventilator on assist-control mode and the patient is at rate of 30, tidal volume 400, FiO2 of 80% with a PEEP of 15. Blood gas showed pH of 7.42 with a pCO2 of 56 and pO2 of 101. Chest x-ray shows bilateral pulmonary consolidation consistent with pneumonia. Peak airway pressure is around 28. Patient is currently on Nepro at rate of 20 cc an hour. The white cell count of 25.8, hemoglobin 10.7 and a platelet count of 235. Blood gases was noted. Sodium levels at 129, potassium is at 4.2 with a BUN of 69 and creatinine of 6. LFTs are still mildly elevated. Vancomycin was discontinued. Zithromax was discontinued and the patient was started on Levaquin 500 mg every 48 hours. IV cefepime was maintained. 09/23/2023, the patient is being seen in a follow-up. He remains intubated on the mechanical ventilator. This morning, the patient on propofol at 25 mcg/kg/min and fentanyl at 2 mcg/kg/h. He is on assist-control mode of mechanical ventilation at rate of 30, tidal volume of 400, FiO2 50% with a PEEP of 15. Blood gas showed a pH of 7.35 with a pCO2 of 48 and pO2 of 82. The patient is on assist-control mode of mechanical ventilation. The blood gas from todayShows a pH of 7.35 with a pCO2 of 48 and pO2 of 72. Chest x-ray shows no major interval change and the patient continues to have bilateral pulmonary infiltrates and consolidations. The patient remains on cefepime and Levaquin. Note that the patient has been off paralytics for the past 48 hours. He grimaces to painful stimulation. He withdraws to painful stimulation in all 4 extremities. Fluid balance is -300 cc over the past 24 hours. IV fluids ordered for normal saline at rate of 10. Urine output is noted of 10 cc an hour. The patient is undergoing daily hemodialysis. Last hemodialysis session was yesterday a total of 2.5 L of fluid was removed. The patient remains on Nepro at rate of 41 cc an hour. The WBC count is at 16 with a hemoglobin 9.8 and a platelet count of 311. BUN is 77 with a creatinine of 6.2 and a sodium levels at 132 with a potassium level of 4. LFTs continue to improve. Afebrile. Hemodynamically stable on no pressors. No other significant events overnight. On 09/24/2023, the patient is being seen for a follow-up. He is intubated and mechanically ventilated. This morning, he is on a combination of propofol and fentanyl. Propofol is running at 65 mcg and fentanyl is at 2 mcg. He is on assist-control mode of mechanical ventilation at rate of 30, tidal volume of 400, FiO2 of 50% with a PEEP of 15. Blood gases showed pH of 7.34 with a pCO2 of 52 and pO2 of 88. The peak airway pressure is 30, static airway pressure is 28 and the chest x-ray findings are essentially unchanged. Remains on Nepro at 12 cc an hour. Urine output is in the order of 10 to 15 cc and the patient is undergoing daily hemodialysis. He is currently undergoing hemodialysis. He is hemodynamically stable on no pressors. He is afebrile. He is on Rocephin and Levaquin. He is also on IV Solu-Medrol and bronchodilators. No major changes in his condition. 09/25/2023, the patient is being seen for a follow-up. Some improvement in oxygenation compared to yesterday. 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 This morning, he remains on propofol at 25 mcg/kg/min and the patient is also on fentanyl at 2 mcg/kg/h. He is on IV fluids at KVO. Hemodialysis was done yesterday and the patient was ultrafiltrate to a total of 2.5 L. He is currently on assist-control mode of mechanical ventilation at rate of 30, tidal volume of 400, FiO2 40% and PEEP of 14. Blood gas from today shows a pH of 7.39 with a pCO2 of 42 and pO2 of 100. Chest x-ray showed atelectatic changes bilaterally in the left midlung in the right lower lobe. The patient continues to have some infiltration of the lung base bilaterally. ET tube is in a good location. The patient is receiving enteral feeding for nutritional support with Nepro at rate of 12 cc an hour. He is producing adequate amount of stools. WBC count at 22 with a hemoglobin of 9.6 and a platelet count of 342. Rest of the blood work shows a sodium level of 129, BUN of 88 and a creatinine of 5.47 and a potassium level is at 4.7. He remains on Levaquin and Rocephin. He remains on IV Solu-Medrol. He remains on bronchodilators. He remains on sliding scale insulin coverage. He is also on heparin subcu for DVT prophylaxis. Patient was placed today on 09/26/2023, patient remains in the ICU, intubated and mechanically ventilated. Patient is on assist-control rate of 3 0 tidal volume 400 FiO2 40% and PEEP of 12. ABG showed a pO2 of 63 pCO2 41 pH of 7.35, just in the flow rate from 50-65. Maintaining an I: E ratio of at least 1-2. Patient is sedated, he is on propofol and 70 mcg/kg/min he is also on fentanyl at 2 mcg/kg/h, he is receiving Nepro for nutritional support 12/12 mL/h. Patient was intubated on 09/18, remains intubated. He is receiving treatment for his Legionella pneumonia using Levaquin and Rocephin, he is also on bronchodilators for underlying COPD. Arterial line was lost yesterday, and I went ahead and established a new left radial arterial line. Chest x-ray continues to show bilateral infiltrates and left lower lobe atelectasis, positional changes noted bilaterally. WBC count remains high at 26.0, hemoglobin is 9.1. And his bands are 3%. ABG as noted earlier. Basic metabolic profile showed a bit of low sodium of 128, BUN is up to 128 creatinine 6.71. Patient is being followed by nephrology, started on hemodialysis on September 19, urine output is 50 to 60 cc/h, patient is on IV Lasix patient is scheduled to undergo hemodialysis today, and Lasix will be continued intermittently. Patient is also on aranesp as far as COPD is concerned, patient remains on DuoNeb, remains on methylprednisolone 60 every 6, patient is also on GI and DVT prophylaxis. Receiving pantoprazole 40 mg IV push daily, and on heparin subcu 5000 units subcu every 8 hours. Lasix is 80 mg IV push daily Patient was reevaluated today on 09/27/2023, heraclio in the ICU on assist-control r ate of 3 0 tidal volume 400 FiO2 40% PEEP was at 12 and I cut it down to 8. ABG showed a pO2 of 120 pCO2 42 pH of 7.37. Patient is still requiring relatively high dose of propofol at 70 mcg/kg/min, fentanyl 1.5 mcg/kg/h I cut down his propofol down to 50, and apparently yesterday off sedation, patient was able to track with his eyes, and he was able to follow very simple instructions but he was generally weak. Today I could even wake him up with painful stimuli, but does not follow any instructions. Hence the patient will be given another sedation holiday today and address the issue of assessment of mental status. Patient remains on nutritional support using Nepro at 15 mL/h which is goal. His Solu-Medrol was cut down to 40 mg IV push every 8 hours, patient remains on Rocephin and Levaquin, patient is responding to Lasix, and his creatinine is down to 5.13, most likely may not need dialysis although that is a consideration by nephrology. His blood cultures have been positive for Streptococcus viridans. Being addressed by infectious disease on the case, infectious disease is considering the possible contamination, and repeat blood cultures are pending. X-ray continues to show bilateral patchy interstitial infiltrates, not much of a change from baseline. WBC count is coming down to 23.9 hemoglobin is 9 basic metabolic profile is normal except renal profile showing a BUN of 99 creatinine of 5.13, slightly improved compared to yesterday. Procalcitonin remains high at 1.7 Patient was seen today on 09/28/2023, patient remains on assist-control rate of 30 tidal volume 400 FiO2 40% PEEP was 8 and I cut it down to 5 ABG showed a pO2 of 107 pCO2 37 pH of 7.36 patient is on propofol at 50 mcg/kg/min, fentanyl at 1.5 mcg/kg/h he is also on Cleviprex at 4 mg/h and on Nepro 15 mL/h. Patient is opening eyes, and unable to follow instructions. Hence I have advised cutting down the propofol further and hopefully cutting down the fentanyl further and start addressing mental status on a daily basis. Chest x-ray is showing improvement in his bilateral infiltrates. Patient continues to have low urine output about 30 to 40 cc/h, creatinine went up to 6.31 with BUN of 127, nephrology is planning hemodialysis on the patient today. Labs were reviewed WBC count is up to 25.9 hemoglobin 9.2. Overall the patient is basically about the same, no major change, I am hoping at least we could get down on lower doses of sedations and narcotics, and at least give the patient weaning trials if we can in the next day or 2 days. Patient was evaluated today on 09/29/2023, remains in the ICU, intubated and mechanically ventilated, patient is on assist-control rate of 3 0 tidal volume 400 FiO2 40% and PEEP of 5 ABG showed a pO2 of 134 pCO2 38 pH of 7.42, hence no changes made in vent settings. Patient received hemodialysis on 09/27, and 3 L of fluid were removed. Patient remains on propofol at 40 mcg/kg/min Fentanyl 1 mcg/kg/h IV fluids at KVO, and he is receiving nutritional support/Nepro at 15 mL/h. Patient is still on antibiotics for his Legionella pneumonia. Chest x- ray is showing minimal improvement in his bilateral interstitial infiltrates. Slight elevation of left hemidiaphragm is unchanged. WBC count today is 18.4 hemoglobin is 8, basic metabolic profile is normal BUN is 91 creatinine 4.58. Family is at bedside, and the family was updated on his condition today. And made aware that my plan is to continue daily assessment of mental status, and possibly weaning if the patient tolerates. Patient was reevaluated today on 09/30/2023, remains in the ICU, remains on assist-control mode of mechanical ventilation with rate of 3 0 tidal volume 400 FiO2 40% and PEEP of 5 ABG showed a pO2 of 111 pCO2 39 pH of 7.36. Patient remains on fentanyl at 2 mcg/kg/h, on Precedex at 1.4 mcg/kg/h off propofol, patient is more awake, however he does not seem to concentrate, follows simple instructions but seems to be not tracking, and constantly shrugging his lucia ulders. Patient is scheduled to have hemodialysis today, and his chest x-ray is showing worsening interstitial edema hence I will hold on weaning trials but may give the patient a trial of pressure support of 14 and have a backup rate of IMV 10. However this will be done after hemodialysis today. Fentanyl will be cut down and may be discontinued once the weaning process starts. WBC count is 18 .1, improving over the last few days basic metabolic profile is abnormal with bicarb of 17 BUN is 116 creatinine is up to 5.45, hence nephrology is planning hemodialysis again on this patient today, chest x-ray is suggestive of interstitial edema and small left pleural effusion Patient was evaluated today on 10/01/2023, remains in the ICU, intubated and mechanically ventilated, patient is on assist-control rate of 3 0 tidal volume 400 FiO2 40% and PEEP of 5 patient is still on Precedex and on fentanyl, however the fentanyl was discontinued after I evaluated the patient, remains on Rocephin and Levaquin for his Legionella pneumonia. ABG today showed a pO2 of 110 pCO2 38 pH of 7.42. Patient underwent hemodialysis yesterday and ultrafiltration 2.7 L of fluid were removed. His urine output is excellent today he is putting out 75 to 150 cc/h patient's electrolytes are noted sodium 131 potassium 4.4 chloride 98 bicarb 22 BUN 97 creatinine 4.49. Patient again is on Precedex at 1.4 mcg/kg/h Fentanyl was on 1 mcg/kg/h and I have recommended stopping the fentanyl patient underwent checking for weaning parameters, and this is -31 vital Is just over 2 L respiratory rate is 12 R SBI of 15 spontaneous tidal volume is 550 ABG showed a pO2 of 97 pCO2 36 pH of 7.45. Chest x-ray today is showing improvement in his fluid status compared to yesterday continues to have a small left pleural effusion. Hence we will proceed with extubating the patient to BiPAP, and will continue to follow and keep the patient in the ICU for now as he seems to be still critically ill. Objective - Vital Signs Vital signs: Vital Signs Temp 98.0 F 10/01/23 08:00 Pulse 79 10/01/23 09:00 Resp 22 10/01/23 09:00 BP 125/78 10/01/23 06:00 Pulse Ox 97 10/01/23 09:00 FiO2 40 10/01/23 09:43 Intake & Output 09/30/23 10/01/23 10/01/23 18:59 06:59 18:59 Intake Total 1481.776 897.197 169.234 Output Total 3595 1600 180 Balance -2113.224 -702.803 -10.766 Weight 89.8 kg 90.1 kg Intake: IV 260 220 40 0.9 NS 260 220 40 Intake, IV Titration 371.776 347.197 69.234 Amount Dexmedetomidine/0.9% NaCl 290.099 347.197 (Pmx) 400 mcg In Empty Bag 1 bag @ 0.2 MCG/KG/HR 4.49 mls/hr IV .[id number] DANNA Rx#:[id number] fentaNYL (PF). 1,000 mcg 81.677 69.234 In Sodium Chloride 0.9% 80 ml @ 0.5 MCG/KG/HR 4. 196 mls/hr IV .[id number] DANNA Rx#:[id number] Tube Feeding 150 330 60 Hemodialysis 700 Output: Urine 915 1600 180 Hemodialysis 2680 Other: Voiding Method Indwelling Catheter Indwelling Catheter ABP, PAP, CO, CI - Last Documented Arterial Blood Pressure 155/151 - Exam GENERAL EXAM: Reveals 58-year-old white male, intubated, mechanically ventilated, on Precedex and fentanyl, patient is awake, follows simple instructions seems to be more awake today than yesterday. HEAD: Normocephalic and atraumatic endotracheal tube and orogastric tube are intact. EYES: Normal reaction of pupils, equal size. NOSE: Clear with pink turbinates. THROAT: No erythema or exudates. NECK: No masses, no JVD. CHEST: No chest wall deformity. LUNGS: Diminished breath sounds and crackles at the bases no rhonchi no wheezes. CVS: Distant S1-S2, no S3 gallop, no murmur. ABDOMEN: Soft nontender no megaly no rebound no guarding. SKIN: No rashes CENTRAL NERVOUS SYSTEM: More awake today, patient seems to be appropriate, follows simple instructions, no gross focal neurologic deficit is noted. EXTREMITIES: No clubbing edema or cyanosis - Labs CBC & Chem 7: 10/01/23 05:39 10/01/23 05:39 Labs: Abnormal Lab Results - Last 24 Hours (Table) 09/30/23 09/30/23 09/30/23 Range/Units 11:40 18:08 23:54 WBC (3.8-10.6) k/uL RBC (4.30-5.90) m/uL Hgb (13.0-17.5) gm/dL Hct (39.0-53.0) % ABG pO2 (83-108) mmHg ABG Total CO2 (19-24) mmol/L ABG O2 Saturation (94-97) % Sodium (137-145) mmol/L BUN (9-20) mg/dL Creatinine (0.66-1.25) mg/dL Glucose (74-99) mg/dL POC Glucose (mg/dL) 118 H 128 H 143 H (70-110) mg/dL Calcium (8.4-10.2) mg/dL 10/01/23 10/01/23 10/01/23 Range/Units 05:39 05:39 06:03 WBC 14.5 H (3.8-10.6) k/uL RBC 2.45 L (4.30-5.90) m/uL Hgb 7.8 L (13.0-17.5) gm/dL Hct 23.4 L (39.0-53.0) % ABG pO2 (83-108) mmHg ABG Total CO2 (19-24) mmol/L ABG O2 Saturation (94-97) % Sodium 131 L (137-145) mmol/L BUN 97 H (9-20) mg/dL Creatinine 4.49 H (0.66-1.25) mg/dL Glucose 151 H (74-99) mg/dL POC Glucose (mg/dL) 148 H (70-110) mg/dL Calcium 8.0 L (8.4-10.2) mg/dL 10/01/23 10/01/23 Range/Units 06:04 09:23 WBC (3.8-10.6) k/uL RBC (4.30-5.90) m/uL Hgb (13.0-17.5) gm/dL Hct (39.0-53.0) % ABG pO2 115 H (83-108) mmHg ABG Total CO2 26 H (19-24) mmol/L ABG O2 Saturation 99.0 H 97.6 H (94-97) % Sodium (137-145) mmol/L BUN (9-20) mg/dL Creatinine (0.66-1.25) mg/dL Glucose (74-99) mg/dL POC Glucose (mg/dL) (70-110) mg/dL Calcium (8.4-10.2) mg/dL Assessment and Plan Assessment: Impression: Acute hypoxic respiratory failure secondary to multilobar pneumonia secondary to Legionella pneumonia patient was intubated on 09/18, underwent bronchoscopy and lavage, urine Legionella antigen is positive, patient is maintained on Rocephin and on Levaquin. Remains intubated and mechanically ventilated. Septic shock, resolved, not requiring pressors Acute exacerbation of COPD, patient is on bronchodilators. Pulmonary status is gradually improving Acute kidney injury secondary to above/secondary to acute tubular necrosis and severe dehydration and sepsis on his initial presentation patient is now on hemodialysis intermittently last dialysis was 09/28/2023 Acute transaminitis secondary to sepsis Benign essential hypertension Dyslipidemia Coronary artery disease [id number] smoking history Bacteremia with Streptococcus viridans group D, being addressed by infectious disease on the case. Repeat cultures are negative so far from 09/24/2023 Recommendation: Continue ventilatory support, patient will have weaning parameters and if appropriate may consider even extubation to BiPAP. Continue antibiotics for his underlying pneumonia presently on Levaquin and Rocephin Hold feeding if the patient is to be extubated today. Considering his urine output, the patient may not require hemodialysis today, he is putting out about 75 to 100 cc/h Continue GI prophylaxis, on Protonix Continue bronchodilators Continue Solu-Medrol. Weaning trial today, weaning parameters today, and may extubate the patient to BiPAP if the patient passes the trials. Even if extubated, the patient will be monitored at least for the next 24 to 40 hours in the ICU. Patient remains critically ill Critical care time is over 30 minutes Time with Patient: Greater than 30
--- NOTE | 2023-10-01 10:44 | P.PN ---
Subjective Progress Note Date: 10/01/23 58-year-old male with history of hypertension, dyslipidemia, coronary artery disease presenting with shortness of breath. In the ED, temperature was 103.3, pulse 131, respiratory rate 30, blood pressure 118/86, saturating 88% on room air. WBC 21.2, hemoglobin 13, pH 7.41, pCO2 33, sodium 122, potassium 3.4, bicarb 18, anion gap 20, creatinine 5.94, lactic acid 3.9, magnesium 0.9, total bili 1.8, AST 110, ALT 53, ALP 105, troponin 0.102. Respiratory viral panel negative. Chest x-ray shows multifocal pneumonia right lower lobe greater than left. EKG shows sinus tachycardia with right bundle you block. Pelvic x-ray shows no acute process. Head CT shows no acute process. Pulmonology, nephrolo gy, cardiology consulted. Respiratory function progressively worsening despite being on broad-spectrum antibiotics. Patient is was subsequently intubated, on vasopressors. Troponin mildly elevated 0.102, 0.116, 0.132. Cardiology consulted, Echo EF 50-55% with no regional wall motion abnormalities, likely Type II NE. Right femoral HD catheter inserted 09/19, daily HD ordered by Nephrology. He underwent bronchoscopy with lavage on 09/19 with significant purulence noted in the RLL. Legionella Ag +, maintained on Rocephin and Levaquin. Vasopressin and Levophed weaned off 09/20. Noted to be agitated on max dose of Fentanyl and Propofol, tachycardic and hypertensive, started on Ativan and CIWA protocol. 09/29 Patient was seen and examined. Intubated. Currently on Dexamedetomidine running at 1.4 mcg/kg/hr, Fentenyl drip 2 mcg/kg/hr. Continued on Lasix 80 mg IV QD. Antibiotics include Levaquin and Rocephin. Receiving intermitted ativan per CIWA protocol. CBC WBC 18.1 Hg 8.3 Hct 25.8, Plt 461. ABG pH 7.36, pCO2 39. BMP Na 131, K 5.2, bicarb 17, BUN 116, Cr 5.45, glu 131, Ca 8. CXR shows persistent bilateral infiltrates. Plans for HD today. 09/30 Patient was seen and examined. Extubated currently on BiPAP 12/6 FiO2 40%. Currently on Dexamedetomidine running at 1.4 mcg/kg/hr. Continued on Lasix 80 mg IV QD. Antibiotics include Levaquin 500 mg IV Q48H (started 09/19 for Legionella PNA) and Rocephin 2g IV QD (started 09/22 for strep viridans BCx). Receiving intermitted ativan per CIAZ protocol. CBC WBC 14.5 Hg 7.8 Hct 23.4. ABG pH 7.42, pCO2 38. BMP Na 131, BUN 97, Cr 4.49, glu 151, Ca 8. CXR shows persistent bilateral infiltrates. Plans for HD today. General: No acute distress on BiPAP. Following instructions. Derm: warm, dry Head: atraumatic, normocephalic, symmetric Eyes: no lid lag, normal sclera Mouth: no lip lesion, mucus membranes moist Cardiovascular: Normal S1 S2 tachycardic. No murmurs, rubs, gallops Lungs: Coarse BS BL, no accessory muscle use Ext: no gross muscle atrophy, trace LE edema, no contractures Neuro: No focal neurologic deficits Psych: Alert and awake Based on my assessment of this patient, this patient meets a high complexity level of care. Acute hypoxic respiratory failure due to below Septic shock due to Legionella pneumonia: Levofloxacin 500 mg IV Q48H started 09/19 and Rocephin 2g IV QD started on 09/22. Vancomycin, Cefepime and Azithromycin discontinued. Levophed titrated to maintain MAP > 65. DuoNeb Q4H. SoluMedrol 40 mg IV TID. Telemetry monitoring. BAL Cx alfonzo albicans. BCx streptococcus viridans. ULegionella Ag +. Pulmonary on board. ID on board. Strep viridans bacteremia: Repeat BCx 09/23 and 09/22 negative. Continued on Rocephin 2g IV QD. Possible contaminant. Likely EtOH withdrawal: Ativan PRN per CIWA scale. Dexmedetomidine as above. Troponin elevation, Type II NE: Plavix 75 mg PO QD. Metoprolol 25 mg PO BID. Lipitor 80 mg PO QD. Acute kidney injury: Hold Lisinopril-HCTZ. HD catheter inserted 09/19. Plans for daily HD. Needs permenant HD catheter, attempted to get in touch with Dr. Nelson on 09/29. Phoslo 667 mg PO TID. Aranesp 40 mcg SQ weekly. Nephrology on board. Hypertension: Hydralazine 50 mg PO TID and 10 mg IV Q4H PRN with parameters. Metoprolol 25 mg PO BID. Currently weaned off Clevidipine drip since 09/27. Hyponatremia: Likely related to severe dehydration and Legionella. Hypocalcemia: Status post 1g Ca gluconate 09/19. Ca today 8. Tums 500 mg PO TID. Transaminitis: Abd US intermediate legion in the right hepatic lobe, MRI recommended. CBD within normal limits. Normocytic anemia: Trending down. no signs of active bleeding. Monitor. Resolved: HyperK, Metabolic acidosis CODE STATUS: FULL CODE DVT Prophylaxis: Heparin SQ GI Prophylaxis: Protonix IV Designated medical POA if patient is not able to make medical decisions for themselves: I have reviewed the following telecommunications consultant notes: Pulmonary, ID, Nephrology. I have reviewed the results of the following tests: CBC. BMP. ABG I have ordered the following tests: Daily CBC, CXR and BMP. I have discussed the care of this patient with the following independent historian: I have independently interpreted the following test below: CXR I have discussed the management of this patient with the following physician: Objective - Vital Signs Vital signs: Vital Signs Temp 98.9 F 10/01/23 04:00 Pulse 69 10/01/23 06:00 Resp 30 H 10/01/23 06:00 BP 125/78 10/01/23 06:00 Pulse Ox 98 10/01/23 06:00 FiO2 40 10/01/23 06:00 Intake & Output 09/30/23 09/30/23 10/01/23 06:59 18:59 06:59 Intake Total 9323.795 8838.776 897.197 Output Total 1160 3595 1600 Balance -135.545 -2113.224 -702.803 Weight 89.8 kg 89.8 kg 90.1 kg Intake: IV 220 260 220 0.9 NS 220 260 220 Intake, IV Titration 504.455 371.776 347.197 Amount Dexmedetomidine/0.9% NaCl 430.539 290.099 347.197 (Pmx) 400 mcg In Empty Bag 1 bag @ 0.2 MCG/KG/HR 4.49 mls/hr IV .[id number] [facility] Rx#:[id number] fentaNYL (PF). 1,000 mcg 73.916 81.677 In Sodium Chloride 0.9% 80 ml @ 0.5 MCG/KG/HR 4. 196 mls/hr IV .[id number] [facility] Rx#:[id number] Tube Feeding 300 150 330 Hemodialysis 700 Output: Urine 5306 399 8687 Hemodialysis 2680 Other: Voiding Method Indwelling Catheter Indwelling Catheter Indwelling Catheter # Bowel Movements 1 ABP, PAP, CO, CI - Last Documented Arterial Blood Pressure 147/77 - Labs CBC & Chem 7: 10/01/23 05:39 10/01/23 05:39 Labs: Abnormal Lab Results - Last 24 Hours (Table) 09/30/23 09/30/23 09/30/23 Range/Units 11:40 18:08 23:54 WBC (3.8-10.6) k/uL RBC (4.30-5.90) m/uL Hgb (13.0-17.5) gm/dL Hct (39.0-53.0) % ABG pO2 (83-108) mmHg ABG Total CO2 (19-24) mmol/L ABG O2 Saturation (94-97) % Sodium (137-145) mmol/L BUN (9-20) mg/dL Creatinine (0.66-1.25) mg/dL Glucose (74-99) mg/dL POC Glucose (mg/dL) 118 H 128 H 143 H (70-110) mg/dL Calcium (8.4-10.2) mg/dL 10/01/23 10/01/23 10/01/23 Range/Units 05:39 05:39 06:03 WBC 14.5 H (3.8-10.6) k/uL RBC 2.45 L (4.30-5.90) m/uL Hgb 7.8 L (13.0-17.5) gm/dL Hct 23.4 L (39.0-53.0) % ABG pO2 (83-108) mmHg ABG Total CO2 (19-24) mmol/L ABG O2 Saturation (94-97) % Sodium 131 L (137-145) mmol/L BUN 97 H (9-20) mg/dL Creatinine 4.49 H (0.66-1.25) mg/dL Glucose 151 H (74-99) mg/dL POC Glucose (mg/dL) 148 H (70-110) mg/dL Calcium 8.0 L (8.4-10.2) mg/dL 10/01/23 Range/Units 06:04 WBC (3.8-10.6) k/uL RBC (4.30-5.90) m/uL Hgb (13.0-17.5) gm/dL Hct (39.0-53.0) % ABG pO2 115 H (83-108) mmHg ABG Total CO2 26 H (19-24) mmol/L ABG O2 Saturation 99.0 H (94-97) % Sodium (137-145) mmol/L BUN (9-20) mg/dL Creatinine (0.66-1.25) mg/dL Glucose (74-99) mg/dL POC Glucose (mg/dL) (70-110) mg/dL Calcium (8.4-10.2) mg/dL
[2023-10-01 12:00] LABS: Glucose,Whole Blood 140 mg/dL (70-110)
[2023-10-01] MEDS: IPRATROPIUM-ALBUTEROL 3 ML NEB INHALATION SCH (13:01)
--- NOTE | 2023-10-01 13:11 | P.PN ---
Subjective Progress Note Date: 10/01/23 Patient is seen in follow-up for acute kidney injury. Started on hemodialysis September 20, 2023. Intubated. Off vasopressors. On IV Lasix. Remains nonoliguric. Patient extubated to Bipap this morning. States his breathign is doing OK. Vital signs are stable. General: Resting in bed. HEENT: Bipap LUNGS: Scattered rhonchi. HEART: Rate and Rhythm are regular. ABDOMEN: No distention. EXTREMITITES: 1+ edema. Objective - Vital Signs Vital signs: Vital Signs Temp 98.0 F 10/01/23 08:00 Pulse 79 10/01/23 09:00 Resp 22 10/01/23 09:00 BP 125/78 10/01/23 06:00 Pulse Ox 97 10/01/23 09:00 FiO2 40 10/01/23 09:43 Intake & Output 09/30/23 10/01/23 10/01/23 18:59 06:59 18:59 Intake Total 1481.776 897.197 169.234 Output Total 3595 1600 180 Balance -2113.224 -702.803 -10.766 Weight 89.8 kg 90.1 kg Intake: IV 260 220 40 0.9 NS 260 220 40 Intake, IV Titration 371.776 347.197 69.234 Amount Dexmedetomidine/0.9% NaCl 290.099 347.197 (Pmx) 400 mcg In Empty Bag 1 bag @ 0.2 MCG/KG/HR 4.49 mls/hr IV .[id number] [facility] Rx#:[id number] fentaNYL (PF). 1,000 mcg 81.677 69.234 In Sodium Chloride 0.9% 80 ml @ 0.5 MCG/KG/HR 4. 196 mls/hr IV .[id number] [facility] Rx#:[id number] Tube Feeding 150 330 60 Hemodialysis 700 Output: Urine 915 1600 180 Hemodialysis 2680 Other: Voiding Method Indwelling Catheter Indwelling Catheter ABP, PAP, CO, CI - Last Documented Arterial Blood Pressure 155/151 - Labs CBC & Chem 7: 10/01/23 05:39 10/01/23 05:39 Labs: Abnormal Lab Results - Last 24 Hours (Table) 09/30/23 09/30/23 09/30/23 Range/Units 11:40 18:08 23:54 WBC (3.8-10.6) k/uL RBC (4.30-5.90) m/uL Hgb (13.0-17.5) gm/dL Hct (39.0-53.0) % ABG pO2 (83-108) mmHg ABG Total CO2 (19-24) mmol/L ABG O2 Saturation (94-97) % Sodium (137-145) mmol/L BUN (9-20) mg/dL Creatinine (0.66-1.25) mg/dL Glucose (74-99) mg/dL POC Glucose (mg/dL) 118 H 128 H 143 H (70-110) mg/dL Calcium (8.4-10.2) mg/dL 10/01/23 10/01/23 10/01/23 Range/Units 05:39 05:39 06:03 WBC 14.5 H (3.8-10.6) k/uL RBC 2.45 L (4.30-5.90) m/uL Hgb 7.8 L (13.0-17.5) gm/dL Hct 23.4 L (39.0-53.0) % ABG pO2 (83-108) mmHg ABG Total CO2 (19-24) mmol/L ABG O2 Saturation (94-97) % Sodium 131 L (137-145) mmol/L BUN 97 H (9-20) mg/dL Creatinine 4.49 H (0.66-1.25) mg/dL Glucose 151 H (74-99) mg/dL POC Glucose (mg/dL) 148 H (70-110) mg/dL Calcium 8.0 L (8.4-10.2) mg/dL 10/01/23 10/01/23 Range/Units 06:04 09:23 WBC (3.8-10.6) k/uL RBC (4.30-5.90) m/uL Hgb (13.0-17.5) gm/dL Hct (39.0-53.0) % ABG pO2 115 H (83-108) mmHg ABG Total CO2 26 H (19-24) mmol/L ABG O2 Saturation 99.0 H 97.6 H (94-97) % Sodium (137-145) mmol/L BUN (9-20) mg/dL Creatinine (0.66-1.25) mg/dL Glucose (74-99) mg/dL POC Glucose (mg/dL) (70-110) mg/dL Calcium (8.4-10.2) mg/dL Assessment and Plan Plan: Assessment: 1. Acute kidney injury secondary to ATN secondary to septic shock. Creatinine 0.8-0.9 in March 2023. This admission creatinine was near 6 with no improvement. Started on hemodialysis September 20, 2023. Has right femoral catheter. No hydronephrosis noted on imaging. On IV Lasix. Nonoliguric. Elevated BUN partially due to steroids. Serologies negative except for positive ROE 2. Septic shock secondary to pneumonia maintained on antibiotics. Urine Le gionella antigen positive. 3. Acute hypoxic respiratory failure. On 40% FiO2. 4. Hypervolemic hyponatremia. 5. Volume overload. Improving with ultrafiltration and diuresis. 6. Metabolic acidosis secondary to acute kidney injury. Improved. 7. Hyperphosphatemia secondary to acute kidney injury. On PhosLo. Plan: Hemodialysis yesterday. Next Treatment Tuesday. Receiving tube feeds. Extubated to Bipap this morning. Monitor for renal recovery. Maintain IV Lasix. Maintain Aranesp. Vascular surgery for removal of temporary dialysis catheter and insertion of permanent dialysis catheter.
--- NOTE | 2023-10-01 13:21 | P.PN ---
Subjective Progress Note Date: 10/01/23 Principal diagnosis: Reason for follow-up is pneumonia and sepsis Patient is a 58-year-old male with a past medical history significant for hypertension ME current everyday smoker presenting to the hospital for evaluation of increasing shortness of breath patient got intubated because of worsening respiratory status was noted to be septic secondary to pneumonia with evidence of right middle lobe infiltrate and urine for Legionella antigen came back positive. On today's evaluation that is 10/01/2023, the patient continues to be afebrile, the patient has been extubated and is currently on a BiPAP with a 40% FiO2 slightly lethargic denies any chest pain no vomiting diarrhea or any other changes reported by the nursing staff. Patient white count is down to 14.5 creatinine is 4.49 Objective - Vital Signs Vital signs: Vital Signs Temp 98.9 F 10/01/23 04:00 Pulse 69 10/01/23 07:00 Resp 30 H 10/01/23 07:00 BP 125/78 10/01/23 06:00 Pulse Ox 97 10/01/23 07:00 FiO2 40 10/01/23 07:44 Intake & Output 09/30/23 10/01/23 10/01/23 18:59 06:59 18:59 Intake Total 1481.776 897.197 169.234 Output Total 3595 1600 180 Balance -2113.224 -702.803 -10.766 Weight 89.8 kg 90.1 kg Intake: IV 260 220 40 0.9 NS 260 220 40 Intake, IV Titration 371.776 347.197 69.234 Amount Dexmedetomidine/0.9% NaCl 290.099 347.197 (Pmx) 400 mcg In Empty Bag 1 bag @ 0.2 MCG/KG/HR 4.49 mls/hr IV .[id number] [facility] Rx#:[id number] fentaNYL (PF). 1,000 mcg 81.677 69.234 In Sodium Chloride 0.9% 80 ml @ 0.5 MCG/KG/HR 4. 196 mls/hr IV .[id number] [facility] Rx#:[id number] Tube Feeding 150 330 60 Hemodialysis 700 Output: Urine 915 1600 180 Hemodialysis 2680 Other: Voiding Method Indwelling Catheter Indwelling Catheter ABP, PAP, CO, CI - Last Documented Arterial Blood Pressure 148/69 - Exam GENERAL DESCRIPTION: Middle-age male lying in bed in no distress RESPIRATORY SYSTEM: Unlabored breathing , decreased breath sounds at bases HEART: S1 S2 regular rate and rhythm , ABDOMEN: Soft , no tenderness EXTREMITIES: Mild edema feet - Labs CBC & Chem 7: 10/01/23 05:39 10/01/23 05:39 Labs: Abnormal Lab Results - Last 24 Hours (Table) 09/30/23 09/30/23 09/30/23 Range/Units 11:40 18:08 23:54 WBC (3.8-10.6) k/uL RBC (4.30-5.90) m/uL Hgb (13.0-17.5) gm/dL Hct (39.0-53.0) % ABG pO2 (83-108) mmHg ABG Total CO2 (19-24) mmol/L ABG O2 Saturation (94-97) % Sodium (137-145) mmol/L BUN (9-20) mg/dL Creatinine (0.66-1.25) mg/dL Glucose (74-99) mg/dL POC Glucose (mg/dL) 118 H 128 H 143 H (70-110) mg/dL Calcium (8.4-10.2) mg/dL 10/01/23 10/01/23 10/01/23 Range/Units 05:39 05:39 06:03 WBC 14.5 H (3.8-10.6) k/uL RBC 2.45 L (4.30-5.90) m/uL Hgb 7.8 L (13.0-17.5) gm/dL Hct 23.4 L (39.0-53.0) % ABG pO2 (83-108) mmHg ABG Total CO2 (19-24) mmol/L ABG O2 Saturation (94-97) % Sodium 131 L (137-145) mmol/L BUN 97 H (9-20) mg/dL Creatinine 4.49 H (0.66-1.25) mg/dL Glucose 151 H (74-99) mg/dL POC Glucose (mg/dL) 148 H (70-110) mg/dL Calcium 8.0 L (8.4-10.2) mg/dL 10/01/23 Range/Units 06:04 WBC (3.8-10.6) k/uL RBC (4.30-5.90) m/uL Hgb (13.0-17.5) gm/dL Hct (39.0-53.0) % ABG pO2 115 H (83-108) mmHg ABG Total CO2 26 H (19-24) mmol/L ABG O2 Saturation 99.0 H (94-97) % Sodium (137-145) mmol/L BUN (9-20) mg/dL Creatinine (0.66-1.25) mg/dL Glucose (74-99) mg/dL POC Glucose (mg/dL) (70-110) mg/dL Calcium (8.4-10.2) mg/dL Assessment and Plan (1) Legionella pneumonia Current Visit: Yes Status: Acute Code(s): A48.1 - LEGIONNAIRES' DISEASE SNOMED Code(s): 238618363 (2) Bacteremia Current Visit: Yes Status: Acute Code(s): R78.81 - BACTEREMIA SNOMED Code(s): 3269864 (3) Pneumonia Current Visit: Yes Status: Acute Code(s): J18.9 - PNEUMONIA, UNSPECIFIED O RGANISM SNOMED Code(s): 388785720 (4) Leukocytosis Current Visit: Yes Status: Acute Code(s): D72.829 - ELEVATED WHITE BLOOD CELL COUNT, UNSPECIFIED SNOMED Code(s): 960211916 Plan: 1patient presented hospital with sepsis in this patient who did have fever tachycardia elevated white count, in this patient with evidence of pneumonia and urine tested positive for Legionella antigen more likely etiology of the sepsis and pneumonia 2 patient did have a positive blood culture with a strep species which has been finalized as strep viridans, the patient repeat blood cultures are pending, patient is currently covered with the Rocephin 2 g daily 3-patient to continue with the Levaquin for his underlying Legionella pneumonia 4-leukocytosis more likely steroid related, the patient white count is trending down and is down to 14,000 today that we will monitor closely and continue supportive care Dictation was produced using [employer] dictation software. please excuse any grammatical, word or spelling errors. Time with Patient: Less than 30
[2023-10-01 17:45] LABS: Glucose,Whole Blood 173 mg/dL (70-110)
[2023-10-02] MEDS: ONDANSETRON 4 MG/2 ML VIAL IVP PRN (00:20)
[2023-10-02 00:25] LABS: Glucose,Whole Blood 125 mg/dL (70-110)
[2023-10-02 05:00] LABS: HCT 26.5 % (39.0-53.0); HGB 8.6 gm/dL (13.0-17.5); MCH 31.6 pg (25.0-35.0); MCHC 32.3 g/dL (31.0-37.0); MCV 98.1 fL (80.0-100.0); Mean Platelet Volume 8.1; Platelet Count 476 k/uL (150-450); RDW 13.9 % (11.5-15.5); WBC 22.3 k/uL (3.8-10.6)
[2023-10-02 05:15] LABS: Anion Gap 16 mmol/L; Calcium 7.9 mg/dL (8.4-10.2); Carbon Dioxide 19 mmol/L (22-30); Chloride 94 mmol/L (98-107); Glucose 131 mg/dL (74-99); Potassium 4.3 mmol/L (3.5-5.1); Sodium 129 mmol/L (137-145)
[2023-10-02 05:16] LABS: Glucose,Whole Blood 138 mg/dL (70-110)
[2023-10-02 05:21] LABS: African American GFR (CKD) 14 (>60 ml/min/1.73 sqM); Non-African American GFR(CKD) 12 (>60 ml/min/1.73 sqM)
[2023-10-02 05:52] LABS: Blood Urea Nitrogen 110 mg/dL (9-20)
--- NOTE | 2023-10-02 11:04 | P.PN ---
Subjective Progress Note Date: 10/02/23 58-year-old male with history of hypertension, dyslipidemia, coronary artery disease presenting with shortness of breath. In the ED, temperature was 103.3, pulse 131, respiratory rate 30, blood pressure 118/86, saturating 88% on room air. WBC 21.2, hemoglobin 13, pH 7.41, pCO2 33, sodium 122, potassium 3.4, bicarb 18, anion gap 20, creatinine 5.94, lactic acid 3.9, magnesium 0.9, total bili 1.8, AST 110, ALT 53, ALP 105, troponin 0.102. Respiratory viral panel negative. Chest x-ray shows multifocal pneumonia right lower lobe greater than left. EKG shows sinus tachycardia with right bundle you block. Pelvic x-ray shows no acute process. Head CT shows no acute process. Pulmonology, nephrolo gy, cardiology consulted. Respiratory function progressively worsening despite being on broad-spectrum antibiotics. Patient is was subsequently intubated, on vasopressors. Troponin mildly elevated 0.102, 0.116, 0.132. Cardiology consulted, Echo EF 50-55% with no regional wall motion abnormalities, likely Type II AR. Right femoral HD catheter inserted 09/19, daily HD ordered by Nephrology. He underwent bronchoscopy with lavage on 09/19 with significant purulence noted in the RLL. Legionella Ag +, maintained on Rocephin and Levaquin. Vasopressin and Levophed weaned off 09/20. Noted to be agitated on max dose of Fentanyl and Propofol, tachycardic and hypertensive, started on Ativan and CIWA protocol. Started on Dexamedetomidine for agitation. Extubated on 09/30. 10/01 Patient was seen and examined. Extubated 09/30. Currently on 3L NC. Doing well. Denies any SOB. Currently weaned off Dexamedetomidine drip. Continued on Lasix 80 mg IV QD. Antibiotics include Levaquin 500 mg IV Q48H (started 09/19 for Legionella PNA) and Rocephin 2g IV QD (started 09/22 for strep viridans BCx). Receiving intermitted ativan per CIWA protocol. CBC WBC 22.3 Hg 8.6 Hct 26.5. BMP Na 129, BUN 94, bicarb 19, BUN 110, Cr 4.75, glu 131, Ca 7.9. CXR shows persistent bilateral infiltrates. Plans for HD on Tuesday per Nephrology. General: No acute distress. Derm: warm, dry Head: atraumatic, normocephalic, symmetric Eyes: no lid lag, normal sclera Mouth: no lip lesion, mucus membranes moist Cardiovascular: Normal S1 S2 tachycardic. No murmurs, rubs, gallops Lungs: Coarse BS BL, no accessory muscle use Ext: no gross muscle atrophy, trace LE edema, no contractures Neuro: No focal neurologic deficits Psych: Alert and oriented x 3 Based on my assessment of this patient, this patient meets a high complexity level of care. Acute hypoxic respiratory failure due to below Septic shock due to Legionella pneumonia: Levofloxacin 500 mg IV Q48H started 09/19 and Rocephin 2g IV QD started on 09/22. Vancomycin, Cefepime and Azithromycin discontinued. Levophed titrated to maintain MAP > 65. DuoNeb Q4H. SoluMedrol 40 mg IV TID. Telemetry monitoring. BAL Cx alfonzo albicans. BCx streptococcus viridans. ULegionella Ag +. Pulmonary on board. ID on board. Strep viridans bacteremia: Repeat BCx 09/23 and 09/22 negative. Continued on Rocephin 2g IV QD. Possible contaminant. Likely EtOH withdrawal: Ativan PRN per CIWA scale. Dexmedetomidine weaned off. Troponin elevation, Type II AR: Plavix 75 mg PO QD. Metoprolol 25 mg PO BID. Lipitor 80 mg PO QD. Acute kidney injury: Hold Lisinopril-HCTZ. HD catheter inserted 09/19. Plans for HD on 10/02. Needs permenant HD catheter, attempted to get in touch with Dr. Nelson on 09/29. Phoslo 667 mg PO TID. Aranesp 40 mcg SQ weekly. Nephrology on board. Hypertension: Hydralazine 50 mg PO TID and 10 mg IV Q4H PRN with parameters. Metoprolol 25 mg PO BID. Currently weaned off Clevidipine drip since 09/27. Hyponatremia: Likely related to severe dehydration and Legionella. Hypocalcemia: Status post 1g Ca gluconate 09/19. Ca today 7.9. Tums 500 mg PO TID. Transaminitis: Abd US intermediate legion in the right hepatic lobe, MRI recommended. CBD within normal limits. Normocytic anemia: Trending down. no signs of active bleeding. Monitor. Resolved: HyperK, Metabolic acidosis CODE STATUS: FULL CODE DVT Prophylaxis: Heparin SQ GI Prophylaxis: Protonix IV Designated medical POA if patient is not able to make medical decisions for themselves: I have reviewed the following learning consultant notes: Pulmonary, ID, Nephrology. I have reviewed the results of the following tests: CBC. BMP. I have discussed the care of this patient with the following independent historian: I have independently interpreted the following test below: I have discussed the management of this patient with the following physician: Objective - Vital Signs Vital signs: Vital Signs Temp 98.2 F 10/02/23 04:00 Pulse 88 10/02/23 07:00 Resp 20 10/02/23 07:00 BP 142/88 10/02/23 07:00 Pulse Ox 98 10/02/23 07:00 FiO2 40 10/01/23 10:33 Intake & Output 10/01/23 10/02/23 10/02/23 18:59 06:59 18:59 Intake Total 1143.234 951 20 Output Total 795 1700 100 Balance 348.234 -749 -80 Intake: IV 370 240 20 0.9 NS 220 240 20 Levofloxacin 500Mg-D5w 100 Pmx 500 mg In Dextrose/ Water 1 100ml.bag @ 100 mls/hr IVPB Q48H [facility] Rx#: [id number] cefTRIAXone 2 gm In 50 Sodium Chloride 0.9% 50 ml @ 100 mls/hr IVPB Q24HR [facility] Rx#:[id number] Intake, IV Titration 269.234 Amount Dexmedetomidine/0.9% NaCl 200.000 (Pmx) 400 mcg In Empty Bag 1 bag @ 0.2 MCG/KG/HR 4.49 mls/hr IV .[id number] [facility] Rx#:[id number] fentaNYL (PF). 1,000 mcg 69.234 In Sodium Chloride 0.9% 80 ml @ 0.5 MCG/KG/HR 4. 196 mls/hr IV .[id number] [facility] Rx#:[id number] Oral 444 711 Tube Feeding 60 Output: Urine 795 1700 100 Other: Voiding Method Indwelling Catheter Indwelling Catheter ABP, PAP, CO, CI - Last Documented Arterial Blood Pressure 116/95 - Labs CBC & Chem 7: 10/02/23 04:15 10/02/23 04:15 Labs: Abnormal Lab Results - Last 24 Hours (Table) 10/01/23 10/01/23 10/01/23 Range/Units 09:23 11:58 17:44 WBC (3.8-10.6) k/uL RBC (4.30-5.90) m/uL Hgb (13.0-17.5) gm/dL Hct (39.0-53.0) % Plt Count (150-450) k/uL ABG O2 Saturation 97.6 H (94-97) % Sodium (137-145) mmol/L Chloride (98-107) mmol/L Carbon Dioxide (22-30) mmol/L BUN (9-20) mg/dL Creatinine (0.66-1.25) mg/dL Glucose (74-99) mg/dL POC Glucose (mg/dL) 140 H 173 H (70-110) mg/dL Calcium (8.4-10.2) mg/dL 10/02/23 10/02/23 10/02/23 Range/Units 00:24 04:15 04:15 WBC 22.3 H (3.8-10.6) k/uL RBC 2.70 L (4.30-5.90) m/uL Hgb 8.6 L (13.0-17.5) gm/dL Hct 26.5 L (39.0-53.0) % Plt Count 476 H (150-450) k/uL ABG O2 Saturation (94-97) % Sodium 129 L (137-145) mmol/L Chloride 94 L (98-107) mmol/L Carbon Dioxide 19 L (22-30) mmol/L BUN 110 H* (9-20) mg/dL Creatinine 4.75 H (0.66-1.25) mg/dL Glucose 131 H (74-99) mg/dL POC Glucose (mg/dL) 125 H (70-110) mg/dL Calcium 7.9 L (8.4-10.2) mg/dL 10/02/23 Range/Units 05:14 WBC (3.8-10.6) k/uL RBC (4.30-5.90) m/uL Hgb (13.0-17.5) gm/dL Hct (39.0-53.0) % Plt Count (150-450) k/uL ABG O2 Saturation (94-97) % Sodium (137-145) mmol/L Chloride (98-107) mmol/L Carbon Dioxide (22-30) mmol/L BUN (9-20) mg/dL Creatinine (0.66-1.25) mg/dL Glucose (74-99) mg/dL POC Glucose (mg/dL) 138 H (70-110) mg/dL Calcium (8.4-10.2) mg/dL
--- NOTE | 2023-10-02 11:04 | P.PN ---
Subjective Progress Note Date: 10/02/23 Principal diagnosis: Acute hypoxic respiratory failure secondary to Legionella pneumonia Patient is a 58-year-old white male with past medical history significant for hypertension, hyperlipidemia, nonocclusive coronary artery disease, and current everyday smoker. I am seeing this patient in the emergency room, after he presented yesterday afternoon with a chief complaint of generalized weakness, fall, shortness of breath and a productive cough. Patient states that starting Tuesday he developed a productive cough with yellow to green sputum. He progressively became more short of breath over the following days. Denies chest pain or hemoptysis. He noticed that he started developing fevers 2 nights ago. He has progressively become more weak. He has had reduced appetite and has not been drinking many oral fluids. He has been having nausea without vomiting. He had a fall yesterday. Denies hitting his head. He states that he more so lowered himself to the floor. States that he should have came in sooner. He is currently sitting in bed, on 3 L/min nasal cannula, he appears dyspneic. He is tachypneic with accessory muscle use. He was noted to be febrile on arrival with a Tmax of 103.3 F, which has been treated with Tylenol.. Chest x-ray demonstrates bilateral infiltrates, greater on the right mid and lower lobes. CBC on arrival demonstrates some leukocytosis with a WBC count of 21.2, otherwise unremarkable. BMP from yesterday has multiple electrolyte abnormalities including: Sodium 123, potassium 3.3, chloride 90, serum bicarb 14, BUN 53, creatinine 6.05, glucose 97. Lactic acid level was elevated at 3.9 and is down to 1.6. Magnesium level 0.9. LFTs mildly elevated. Total bili 1.8. Troponins elevated at 0.102, 0.116, and 0.132 respectively. Negative for influenza, RSV, COVID. Patient has been covered on broad-spectrum antibiotics including vancomycin, Zosyn, and azithromycin. Patient's current respiratory status is labile. On today's evaluation of 09/20/2023, the patient is being seen for a follow-up. Currently, the patient intubated on mechanical ventilator and sedated and paralyzed. This morning, the patient is on a propofol running at 30 mcg/kg/min and the patient is also on fentanyl at 0.3 mcg/kg/h. The patient is on Nimbex at 1 mcg/kg/min. While being on the mechanical ventilator, the patient assist- control mode at a rate of 30, tidal volume of 400, FiO2 is at 90% with a PEEP of 12. Urine output is in order of 20 to 30 cc an hour. Patient remains on norepinephrine running at 0.25 mcg/kg/min and the patient is also on physiologic dose of vasopressin. While on the mechanical ventilator, the peak airway pr essure is around 20, CVP is at 16. The patient was resuscitated with IV fluids and the fluid balance is +4.6 L over the past 24 hours. The blood gas shows a pH of 7.2 with a pCO2 of 45 and a pO2 of 86. Chest x-ray is consistent with bilateral pneumonia. The white cell count today is at 26.8 with a hemoglobin of 11 and a platelet count of 225. Sodium is at 123, potassium level is at 4.2, serum bicarb is at 15, BUN is at 7 6. Creatinine 6.85. The patient total calcium level is at 5.9 and the corrected calcium level is at 7.1. Phosphorus level is at 9.8. LFTs show an bilirubin of 1.2, AST of 420, ALT of 200. The patient remains on a combination of antibiotics including IV cefepime, va ncomycin and Zithromax. I performed a bronchoscopy endobronchial lavage of the right lower lobe. There was purulent respiratory secretions the right lung base that was suctioned out without any major difficulties. Blood cultures are negative thus far. The patient was also started on enteral feeding for nutritional support. Abdominal ultrasound showed normal common bile duct, normal kidneys without evidence of any hydronephrosis. Will on today's evaluation of 09/21/2023, the patient remains intubated on mechanical ventilator. Diagnosed having the Legionella pneumonia and urine antigen was positive. Bronchoscopy was done and the bronchial lavage results are still pending for now. This morning, the patient is on propofol running at 45 mcg/kg/min and the patient is also on fentanyl at 0.5 mcg/kg/h and Nimbex at 2 mcg/kg. Minutes. IV fluids are currently at KVO. Pressors have been off since midnight. The patient is hemodynamically stable. Underwent hemodialysis yesterday with a total of 2 L of ultrafiltration. Another session is in progress this morning. Remains on mechanical ventilator on assist-control mode and the patient is at rate of 30, tidal volume 400, FiO2 of 80% with a PEEP of 15. Blood gas showed pH of 7.42 with a pCO2 of 56 and pO2 of 101. Chest x-ray shows bilateral pulmonary consolidation consistent with pneumonia. Peak airway pressure is around 28. Patient is currently on Nepro at rate of 20 cc an hour. The white cell count of 25.8, hemoglobin 10.7 and a platelet count of 235. Blood gases was noted. Sodium levels at 129, potassium is at 4.2 with a BUN of 69 and creatinine of 6. LFTs are still mildly elevated. Vancomycin was discontinued. Zithromax was discontinued and the patient was started on Levaquin 500 mg every 48 hours. IV cefepime was maintained. 09/23/2023, the patient is being seen in a follow-up. He remains intubated on the mechanical ventilator. This morning, the patient on propofol at 25 mcg/kg/min and fentanyl at 2 mcg/kg/h. He is on assist-control mode of mechanical ventilation at rate of 30, tidal volume of 400, FiO2 50% with a PEEP of 15. Blood gas showed a pH of 7.35 with a pCO2 of 48 and pO2 of 82. The patient is on assist-control mode of mechanical ventilation. The blood gas from todayShows a pH of 7.35 with a pCO2 of 48 and pO2 of 72. Chest x-ray shows no major interval change and the patient continues to have bilateral pulmonary infiltrates and consolidations. The patient remains on cefepime and Levaquin. Note that the patient has been off paralytics for the past 48 hours. He grimaces to painful stimulation. He withdraws to painful stimulation in all 4 extremities. Fluid balance is -300 cc over the past 24 hours. IV fluids ordered for normal saline at rate of 10. Urine output is noted of 10 cc an hour. The patient is undergoing daily hemodialysis. Last hemodialysis session was yesterday a total of 2.5 L of fluid was removed. The patient remains on Nepro at rate of 41 cc an hour. The WBC count is at 16 with a hemoglobin 9.8 and a platelet count of 311. BUN is 77 with a creatinine of 6.2 and a sodium levels at 132 with a potassium level of 4. LFTs continue to improve. Afebrile. Hemodynamically stable on no pressors. No other significant events overnight. On 09/24/2023, the patient is being seen for a follow-up. He is intubated and mechanically ventilated. This morning, he is on a combination of propofol and fentanyl. Propofol is running at 65 mcg and fentanyl is at 2 mcg. He is on assist-control mode of mechanical ventilation at rate of 30, tidal volume of 400, FiO2 of 50% with a PEEP of 15. Blood gases showed pH of 7.34 with a pCO2 of 52 and pO2 of 88. The peak airway pressure is 30, static airway pressure is 28 and the chest x-ray findings are essentially unchanged. Remains on Nepro at 12 cc an hour. Urine output is in the order of 10 to 15 cc and the patient is undergoing daily hemodialysis. He is currently undergoing hemodialysis. He is hemodynamically stable on no pressors. He is afebrile. He is on Rocephin and Levaquin. He is also on IV Solu-Medrol and bronchodilators. No major changes in his condition. 09/25/2023, the patient is being seen for a follow-up. Some improvement in oxygenation compared to yesterday. 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 This morning, he remains on propofol at 25 mcg/kg/min and the patient is also on fentanyl at 2 mcg/kg/h. He is on IV fluids at KVO. Hemodialysis was done yesterday and the patient was ultrafiltrate to a total of 2.5 L. He is currently on assist-control mode of mechanical ventilation at rate of 30, tidal volume of 400, FiO2 40% and PEEP of 14. Blood gas from today shows a pH of 7.39 with a pCO2 of 42 and pO2 of 100. Chest x-ray showed atelectatic changes bilaterally in the left midlung in the right lower lobe. The patient continues to have some infiltration of the lung base bilaterally. ET tube is in a good location. The patient is receiving enteral feeding for nutritional support with Nepro at rate of 12 cc an hour. He is producing adequate amount of stools. WBC count at 22 with a hemoglobin of 9.6 and a platelet count of 342. Rest of the blood work shows a sodium level of 129, BUN of 88 and a creatinine of 5.47 and a potassium level is at 4.7. He remains on Levaquin and Rocephin. He remains on IV Solu-Medrol. He remains on bronchodilators. He remains on sliding scale insulin coverage. He is also on heparin subcu for DVT prophylaxis. Patient was placed today on 09/26/2023, patient remains in the ICU, intubated and mechanically ventilated. Patient is on assist-control rate of 3 0 tidal volume 400 FiO2 40% and PEEP of 12. ABG showed a pO2 of 63 pCO2 41 pH of 7.35, just in the flow rate from 50-65. Maintaining an I: E ratio of at least 1-2. Patient is sedated, he is on propofol and 70 mcg/kg/min he is also on fentanyl at 2 mcg/kg/h, he is receiving Nepro for nutritional support 12/12 mL/h. Patient was intubated on 09/18, remains intubated. He is receiving treatment for his Legionella pneumonia using Levaquin and Rocephin, he is also on bronchodilators for underlying COPD. Arterial line was lost yesterday, and I went ahead and established a new left radial arterial line. Chest x-ray continues to show bilateral infiltrates and left lower lobe atelectasis, positional changes noted bilaterally. WBC count remains high at 26.0, hemoglobin is 9.1. And his bands are 3%. ABG as noted earlier. Basic metabolic profile showed a bit of low sodium of 128, BUN is up to 128 creatinine 6.71. Patient is being followed by nephrology, started on hemodialysis on September 19, urine output is 50 to 60 cc/h, patient is on IV Lasix patient is scheduled to undergo hemodialysis today, and Lasix will be continued intermittently. Patient is also on aranesp as far as COPD is concerned, patient remains on DuoNeb, remains on methylprednisolone 60 every 6, patient is also on GI and DVT prophylaxis. Receiving pantoprazole 40 mg IV push daily, and on heparin subcu 5000 units subcu every 8 hours. Lasix is 80 mg IV push daily Patient was reevaluated today on 09/27/2023, heraclio in the ICU on assist-control r ate of 3 0 tidal volume 400 FiO2 40% PEEP was at 12 and I cut it down to 8. ABG showed a pO2 of 120 pCO2 42 pH of 7.37. Patient is still requiring relatively high dose of propofol at 70 mcg/kg/min, fentanyl 1.5 mcg/kg/h I cut down his propofol down to 50, and apparently yesterday off sedation, patient was able to track with his eyes, and he was able to follow very simple instructions but he was generally weak. Today I could even wake him up with painful stimuli, but does not follow any instructions. Hence the patient will be given another sedation holiday today and address the issue of assessment of mental status. Patient remains on nutritional support using Nepro at 15 mL/h which is goal. His Solu-Medrol was cut down to 40 mg IV push every 8 hours, patient remains on Rocephin and Levaquin, patient is responding to Lasix, and his creatinine is down to 5.13, most likely may not need dialysis although that is a consideration by nephrology. His blood cultures have been positive for Streptococcus viridans. Being addressed by infectious disease on the case, infectious disease is considering the possible contamination, and repeat blood cultures are pending. X-ray continues to show bilateral patchy interstitial infiltrates, not much of a change from baseline. WBC count is coming down to 23.9 hemoglobin is 9 basic metabolic profile is normal except renal profile showing a BUN of 99 creatinine of 5.13, slightly improved compared to yesterday. Procalcitonin remains high at 1.7 Patient was seen today on 09/28/2023, patient remains on assist-control rate of 30 tidal volume 400 FiO2 40% PEEP was 8 and I cut it down to 5 ABG showed a pO2 of 107 pCO2 37 pH of 7.36 patient is on propofol at 50 mcg/kg/min, fentanyl at 1.5 mcg/kg/h he is also on Cleviprex at 4 mg/h and on Nepro 15 mL/h. Patient is opening eyes, and unable to follow instructions. Hence I have advised cutting down the propofol further and hopefully cutting down the fentanyl further and start addressing mental status on a daily basis. Chest x-ray is showing improvement in his bilateral infiltrates. Patient continues to have low urine output about 30 to 40 cc/h, creatinine went up to 6.31 with BUN of 127, nephrology is planning hemodialysis on the patient today. Labs were reviewed WBC count is up to 25.9 hemoglobin 9.2. Overall the patient is basically about the same, no major change, I am hoping at least we could get down on lower doses of sedations and narcotics, and at least give the patient weaning trials if we can in the next day or 2 days. Patient was evaluated today on 09/29/2023, remains in the ICU, intubated and mechanically ventilated, patient is on assist-control rate of 3 0 tidal volume 400 FiO2 40% and PEEP of 5 ABG showed a pO2 of 134 pCO2 38 pH of 7.42, hence no changes made in vent settings. Patient received hemodialysis on 09/27, and 3 L of fluid were removed. Patient remains on propofol at 40 mcg/kg/min Fentanyl 1 mcg/kg/h IV fluids at KVO, and he is receiving nutritional support/Nepro at 15 mL/h. Patient is still on antibiotics for his Legionella pneumonia. Chest x- ray is showing minimal improvement in his bilateral interstitial infiltrates. Slight elevation of left hemidiaphragm is unchanged. WBC count today is 18.4 hemoglobin is 8, basic metabolic profile is normal BUN is 91 creatinine 4.58. Family is at bedside, and the family was updated on his condition today. And made aware that my plan is to continue daily assessment of mental status, and possibly weaning if the patient tolerates. Patient was reevaluated today on 09/30/2023, remains in the ICU, remains on assist-control mode of mechanical ventilation with rate of 3 0 tidal volume 400 FiO2 40% and PEEP of 5 ABG showed a pO2 of 111 pCO2 39 pH of 7.36. Patient remains on fentanyl at 2 mcg/kg/h, on Precedex at 1.4 mcg/kg/h off propofol, patient is more awake, however he does not seem to concentrate, follows simple instructions but seems to be not tracking, and constantly shrugging his lucia ulders. Patient is scheduled to have hemodialysis today, and his chest x-ray is showing worsening interstitial edema hence I will hold on weaning trials but may give the patient a trial of pressure support of 14 and have a backup rate of IMV 10. However this will be done after hemodialysis today. Fentanyl will be cut down and may be discontinued once the weaning process starts. WBC count is 18 .1, improving over the last few days basic metabolic profile is abnormal with bicarb of 17 BUN is 116 creatinine is up to 5.45, hence nephrology is planning hemodialysis again on this patient today, chest x-ray is suggestive of interstitial edema and small left pleural effusion Patient was evaluated today on 10/01/2023, remains in the ICU, intubated and mechanically ventilated, patient is on assist-control rate of 3 0 tidal volume 400 FiO2 40% and PEEP of 5 patient is still on Precedex and on fentanyl, however the fentanyl was discontinued after I evaluated the patient, remains on Rocephin and Levaquin for his Legionella pneumonia. ABG today showed a pO2 of 110 pCO2 38 pH of 7.42. Patient underwent hemodialysis yesterday and ultrafiltration 2.7 L of fluid were removed. His urine output is excellent today he is putting out 75 to 150 cc/h patient's electrolytes are noted sodium 131 potassium 4.4 chloride 98 bicarb 22 BUN 97 creatinine 4.49. Patient again is on Precedex at 1.4 mcg/kg/h Fentanyl was on 1 mcg/kg/h and I have recommended stopping the fentanyl patient underwent checking for weaning parameters, and this is -31 vital Is just over 2 L respiratory rate is 12 R SBI of 15 spontaneous tidal volume is 550 ABG showed a pO2 of 97 pCO2 36 pH of 7.45. Chest x-ray today is showing improvement in his fluid status compared to yesterday continues to have a small left pleural effusion. Hence we will proceed with extubating the patient to BiPAP, and will continue to follow and keep the patient in the ICU for now as he seems to be still critically ill. Patient was evaluated today on 10/02/2023, patient was extubated yesterday and he tolerated the extubation well. Presently on 3 L nasal cannula, patient is generally weak, and he is fully awake, not in any distress. Urine output has been excellent. Hence may not need hemodialysis today. Labs showed WBC of 22.3 hemoglobin 8.6 sodium is a bit low at 129, BUN is 110 creatinine 4.75. No chest x-ray was done today, his last chest x-ray from yesterday was showing evidence of improvement in his airspace disease and interstitial edema. Nonetheless he continues to have a small left pleural effusion. Patient remains on bronchodilators, remains on antibiotics in the form of Rocephin and Levaquin, remains on methylprednisolone which I will cut down to 40 mg IV push every 12 hours and eventually transition to prednisone burst and taper. Remains on Protonix/GI DVT prophylaxis. Objective - Vital Signs Vital signs: Vital Signs Temp 98.8 F 10/02/23 08:00 Pulse 84 10/02/23 10:00 Resp 16 10/02/23 10:00 BP 150/92 10/02/23 10:00 Pulse Ox 96 10/02/23 10:00 FiO2 40 10/01/23 10:33 Intake & Output 10/01/23 10/02/23 10/02/23 18:59 06:59 18:59 Intake Total 1143.234 951 230 Output Total 795 1700 480 Balance 348.234 -749 -250 Intake: IV 370 240 130 0.9 NS 220 240 80 Levofloxacin 500Mg-D5w 100 Pmx 500 mg In Dextrose/ Water 1 100ml.bag @ 100 mls/hr IVPB Q48H [facility]AN[facility] Rx#: [id number] cefTRIAXone 2 gm In 50 50 Sodium Chloride 0.9% 50 ml @ 100 mls/hr IVPB Q24HR [facility]ANNA Rx#:[id number] Intake, IV Titration 269.234 Amount Dexmedetomidine/0.9% NaCl 200.000 (Pmx) 400 mcg In Empty Bag 1 bag @ 0.2 MCG/KG/HR 4.49 mls/hr IV .[id number] [facility] Rx#:[id number] fentaNYL (PF). 1,000 mcg 69.234 In Sodium Chloride 0.9% 80 ml @ 0.5 MCG/KG/HR 4. 196 mls/hr IV .[id number] [facility] Rx#:[id number] Oral 444 711 100 Tube Feeding 60 Output: Urine 795 1700 480 Other: Voiding Method Indwelling Catheter Indwelling Catheter Indwelling Catheter ABP, PAP, CO, CI - Last Documented Arterial Blood Pressure 116/95 - Exam GENERAL EXAM: Reveals 58-year-old white male, on nasal cannula, in no distress HEAD: Normocephalic and atraumatic EYES: Normal reaction of pupils, equal size. NOSE: Clear with pink turbinates. THROAT: No erythema or exudates. NECK: No masses, no JVD. CHEST: No chest wall deformity. LUNGS: Good breath sounds anteriorly diminished at the bases no rhonchi no wheezes CVS: Distant S1-S2, no S3 gallop, no murmur. ABDOMEN: Soft nontender no megaly no rebound no guarding. SKIN: No rashes CENTRAL NERVOUS SYSTEM: Generally weak, alert oriented x 3, no gross focal neurologic deficit except for weakness EXTREMITIES: No clubbing edema or cyanosis - Labs CBC & Chem 7: 10/02/23 04:15 10/02/23 04:15 Labs: Abnormal Lab Results - Last 24 Hours (Table) 10/01/23 10/01/23 10/02/23 Range/Units 11:58 17:44 00:24 WBC (3.8-10.6) k/uL RBC (4.30-5.90) m/uL Hgb (13.0-17.5) gm/dL Hct (39.0-53.0) % Plt Count (150-450) k/uL Sodium (137-145) mmol/L Chloride (98-107) mmol/L Carbon Dioxide (22-30) mmol/L BUN (9-20) mg/dL Creatinine (0.66-1.25) mg/dL Glucose (74-99) mg/dL POC Glucose (mg/dL) 140 H 173 H 125 H (70-110) mg/dL Calcium (8.4-10.2) mg/dL 10/02/23 10/02/23 10/02/23 Range/Units 04:15 04:15 05:14 WBC 22.3 H (3.8-10.6) k/uL RBC 2.70 L (4.30-5.90) m/uL Hgb 8.6 L (13.0-17.5) gm/dL Hct 26.5 L (39.0-53.0) % Plt Count 476 H (150-450) k/uL Sodium 129 L (137-145) mmol/L Chloride 94 L (98-107) mmol/L Carbon Dioxide 19 L (22-30) mmol/L BUN 110 H* (9-20) mg/dL Creatinine 4.75 H (0.66-1.25) mg/dL Glucose 131 H (74-99) mg/dL POC Glucose (mg/dL) 138 H (70-110) mg/dL Calcium 7.9 L (8.4-10.2) mg/dL Assessment and Plan Assessment: Impression: Acute hypoxic respiratory failure secondary to multilobar pneumonia secondary to Legionella pneumonia patient was intubated on 09/18, underwent bronchoscopy and lavage, urine Legionella antigen is positive, patient is maintained on Rocephin and on Levaquin. Extubated on 10/01/2023. Septic shock, resolved Acute exacerbation of COPD, patient is on bronchodilators. Pulmonary status is gradually improving, still on bronchodilators and steroids Acute kidney injury secondary to above/secondary to acute tubular necrosis and severe dehydration and sepsis on his initial presentation patient is now on hemodialysis intermittently, no dialysis in the last 2 days. Acute transaminitis secondary to sepsis Benign essential hypertension Dyslipidemia Coronary artery disease [id number] smoking history Bacteremia with Streptococcus viridans group D, being addressed by infectious disease on the case. Repeat cultures are negative so far from 09/24/2023 Recommendation: Ambulate patient in the room today. Physical therapy and Occupational Therapy to evaluate Advance diet as tolerated Nephrology to address his renal failure and decide whether more dialysis is necessary obviously the patient is making a significant amount of urine may not need dialysis today. Continue GI prophylaxis, on Protonix Continue bronchodilators Continue Solu-Medrol. Cut down to 40 mg IV push twice daily Monitor in the ICU for the next 24 hours Patient will eventually require placement. And rehab Will continue to follow for now Time with Patient: Less than 30
[2023-10-02 11:38] LABS: Glucose,Whole Blood 113 mg/dL (70-110)
[2023-10-02] MEDS: INSULIN ASPART (NovoLOG) 100 UNIT/ML VIAL SQ SCH (11:48)
--- NOTE | 2023-10-02 11:49 | P.PN ---
Subjective Progress Note Date: 10/02/23 Patient is seen in follow-up for acute kidney injury. Started on hemodialysis September 20, 2023. Intubated. Off vasopressors. On IV Lasix. Remains nonoliguric. States his breathing is stable and improving. Vital signs are stable. General: Resting in bed. HEENT: Neck supple LUNGS: Scattered rhonchi. HEART: Rate and Rhythm are regular. ABDOMEN: No distention. EXTREMITITES: 1+ edema. Objective - Vital Signs Vital signs: Vital Signs Temp 98.8 F 10/02/23 08:00 Pulse 84 10/02/23 09:04 Resp 15 10/02/23 09:00 BP 145/89 10/02/23 09:00 Pulse Ox 96 10/02/23 09:00 FiO2 40 10/01/23 10:33 Intake & Output 10/01/23 10/02/23 10/02/23 18:59 06:59 18:59 Intake Total 1143.234 951 190 Output Total 795 1700 280 Balance 348.234 -749 -90 Intake: IV 370 240 90 0.9 NS 220 240 40 Levofloxacin 500Mg-D5w 100 Pmx 500 mg In Dextrose/ Water 1 100ml.bag @ 100 mls/hr IVPB Q48H [facility] Rx#: [id number] cefTRIAXone 2 gm In 50 50 Sodium Chloride 0.9% 50 ml @ 100 mls/hr IVPB Q24HR [facility] Rx#:[id number] Intake, IV Titration 269.234 Amount Dexmedetomidine/0.9% NaCl 200.000 (Pmx) 400 mcg In Empty Bag 1 bag @ 0.2 MCG/KG/HR 4.49 mls/hr IV .[id number] [facility] Rx#:[id number] fentaNYL (PF). 1,000 mcg 69.234 In Sodium Chloride 0.9% 80 ml @ 0.5 MCG/KG/HR 4. 196 mls/hr IV .[id number] [facility] Rx#:[id number] Oral 444 711 100 Tube Feeding 60 Output: Urine 795 1700 280 Other: Voiding Method Indwelling Catheter Indwelling Catheter Indwelling Catheter ABP, PAP, CO, CI - Last Documented Arterial Blood Pressure 116/95 - Labs CBC & Chem 7: 10/02/23 04:15 10/02/23 04:15 Labs: Abnormal Lab Results - Last 24 Hours (Table) 10/01/23 10/01/23 10/02/23 Range/Units 11:58 17:44 00:24 WBC (3.8-10.6) k/uL RBC (4.30-5.90) m/uL Hgb (13.0-17.5) gm/dL Hct (39.0-53.0) % Plt Count (150-450) k/uL Sodium (137-145) mmol/L Chloride (98-107) mmol/L Carbon Dioxide (22-30) mmol/L BUN (9-20) mg/dL Creatinine (0.66-1.25) mg/dL Glucose (74-99) mg/dL POC Glucose (mg/dL) 140 H 173 H 125 H (70-110) mg/dL Calcium (8.4-10.2) mg/dL 10/02/23 10/02/23 10/02/23 Range/Units 04:15 04:15 05:14 WBC 22.3 H (3.8-10.6) k/uL RBC 2.70 L (4.30-5.90) m/uL Hgb 8.6 L (13.0-17.5) gm/dL Hct 26.5 L (39.0-53.0) % Plt Count 476 H (150-450) k/uL Sodium 129 L (137-145) mmol/L Chloride 94 L (98-107) mmol/L Carbon Dioxide 19 L (22-30) mmol/L BUN 110 H* (9-20) mg/dL Creatinine 4.75 H (0.66-1.25) mg/dL Glucose 131 H (74-99) mg/dL POC Glucose (mg/dL) 138 H (70-110) mg/dL Calcium 7.9 L (8.4-10.2) mg/dL Assessment and Plan Plan: Assessment: 1. Acute kidney injury secondary to ATN secondary to septic shock. Creatinine 0.8-0.9 in March 2023. This admission creatinine was near 6 with no improvement. Started on hemodialysis September 20, 2023. Has right femoral catheter. No hydronephrosis noted on imaging. On IV Lasix. Nonoliguric. Elevated BUN partially due to steroids. Serologies negative except for positive ROE 2. Septic shock secondary to pneumonia maintained on antibiotics. Urine Legionella antigen positive. 3. Acute hypoxic respiratory failure. On 40% FiO2. 4. Hypervolemic hyponatremia. 5. Volume overload. Improving with ultrafiltration and diuresis. 6. Metabolic acidosis secondary to acute kidney injury. Improved. 7. Hyperphosphatemia secondary to acute kidney injury. On PhosLo. Plan: Hemodialysis Tuesday. Next Treatment Tuesday. Receiving tube feeds. Monitor for renal recovery. Maintain IV Lasix. Maintain Aranesp. Vascular surgery for removal of temporary dialysis catheter and insertion of permanent dialysis catheter.
[2023-10-02 17:43] LABS: Glucose,Whole Blood 111 mg/dL (70-110)
[2023-10-02 19:47] LABS: Glucose,Whole Blood 124 mg/dL (70-110)
[2023-10-02] MEDS: methylPREDNISolone SOD SUCCI 40 MG/ML 1 ML VIAL IV SCH (19:57)
[2023-10-03 06:03] LABS: HCT 24.2 % (39.0-53.0); MCH 31.5 pg (25.0-35.0); MCV 95.3 fL (80.0-100.0); Mean Platelet Volume 8.5; Platelet Count 415 k/uL (150-450); RBC 2.53 m/uL (4.30-5.90); RDW 13.8 % (11.5-15.5)
[2023-10-03 06:25] LABS: Glucose,Whole Blood 102 mg/dL (70-110)
[2023-10-03 06:53] LABS: Anion Gap 10 mmol/L; Calcium 8.1 mg/dL (8.4-10.2); Carbon Dioxide 24 mmol/L (22-30); Chloride 94 mmol/L (98-107); Glucose 101 mg/dL (74-99); Sodium 128 mmol/L (137-145)
[2023-10-03 07:00] LABS: African American GFR (CKD) 13 (>60 ml/min/1.73 sqM); Non-African American GFR(CKD) 11 (>60 ml/min/1.73 sqM)
[2023-10-03 07:12] LABS: Blood Urea Nitrogen 106 mg/dL (9-20)
--- NOTE | 2023-10-03 10:56 | P.PN ---
Subjective patient is seen for follow-up for acute kidney injury. patient is awake and comfortable. Urine output at 80-150 ML per hour. Patient is seen on hemodialysis today. Tolerating treatment well. Scheduled for new permacath insertion today. Objective - Vital Signs Vital signs: Vital Signs Temp 98.7 F 10/03/23 08:00 Pulse 99 10/03/23 10:00 Resp 21 10/03/23 10:00 BP 133/86 10/03/23 10:00 Pulse Ox 96 10/03/23 10:00 FiO2 40 10/01/23 10:33 Intake & Output 10/02/23 10/03/23 10/03/23 18:59 06:59 18:59 Intake Total 710 240 230 Output Total 1105 1770 380 Balance -395 -1530 -150 Weight 83.9 kg 91.7 kg Intake: IV 290 240 110 0.9 NS 240 240 60 cefTRIAXone 2 gm In 50 50 Sodium Chloride 0.9% 50 ml @ 100 mls/hr IVPB Q24HR [facility] Rx#:[id number] Oral 420 120 Output: Urine 1105 1770 380 Other: Voiding Method Indwelling Catheter Indwelling Catheter Indwelling Catheter # Bowel Movements 1 ABP, PAP, CO, CI - Last Documented Arterial Blood Pressure 116/95 - Exam patient is awake and comfortable No acute distress Examination of the heart S1 and S2 Examination the lungs bilateral breath sounds are heard Abdomen is soft Examination of lower extremities shows 1+ edema bilaterally - Labs CBC & Chem 7: 10/03/23 05:45 10/03/23 05:45 Labs: Abnormal Lab Results - Last 24 Hours (Table) 10/02/23 10/02/23 10/02/23 Range/Units 11:36 17:41 19:45 WBC (3.8-10.6) k/uL RBC (4.30-5.90) m/uL Hgb (13.0-17.5) gm/dL Hct (39.0-53.0) % Sodium (137-145) mmol/L Chloride (98-107) mmol/L BUN (9-20) mg/dL Creatinine (0.66-1.25) mg/dL Glucose (74-99) mg/dL POC Glucose (mg/dL) 113 H 111 H 124 H (70-110) mg/dL Calcium (8.4-10.2) mg/dL 10/03/23 10/03/23 Range/Units 05:45 05:45 WBC 16.0 H (3.8-10.6) k/uL RBC 2.53 L (4.30-5.90) m/uL Hgb 8.0 L (13.0-17.5) gm/dL Hct 24.2 L (39.0-53.0) % Sodium 128 L (137-145) mmol/L Chloride 94 L (98-107) mmol/L BUN 106 H* (9-20) mg/dL Creatinine 5.05 H (0.66-1.25) mg/dL Glucose 101 H (74-99) mg/dL POC Glucose (mg/dL) (70-110) mg/dL Calcium 8.1 L (8.4-10.2) mg/dL Assessment and Plan Assessment: 1. Acute kidney injury, ATN. Secondary to hypotension and underlying infection. Nonoliguric. Serologies are negative except for positive ROE. Currently with indwelling Barnes catheter. Ultrasound shows no evidence of obstruction. UA shows 1+ protein and moderate blood WBCs 16. Started on hemodialysis on 09/20/2023. Good urine output but serum creatinine remains around 5. We will continue with hemodialysis and continue to monitor for recovery of renal function. 2. Community-acquired bilateral pneumonia maintained on vancomycin, cefepime and azithromycinurine legionnaire antigen positive 3. Acute hypoxic respiratory failure, status post extubation 4. Anion gap metabolic acidosis associated with acute kidney injury. 5. Hypokalemia 6. Hyponatremia,hypervolemic. Improved with dialysis 7. Volume overload Plan: continue to monitor for recovery of renal function. Increase UF as tolerated. Continue with hemodialysis on Tuesday schedule.
--- NOTE | 2023-10-03 10:58 | P.PN ---
Subjective Progress Note Date: 10/03/23 The patient is seen today October 03, 2023 in follow-up in the intensive care unit. He had originally been admitted for acute hypoxic respiratory failure secondary to Legionella pneumonia. He required intubation and mechanical ventilatory support from 09/19/23 through October 01, 2023. He is currently sitting up in bed. Awake and alert in no acute distress. He is now maintaining good O2 saturations in the 90s on 2 L/min per nasal cannula. He is continued on ceftriaxone and Levaquin. Revealed no growth. Bronchial wash cultures from 09/20/2023 revealed Farzana. On 8.0. Platelets 415. Sodium 128. Potassium 4.0. Bicarb 24. BUN 106. Creatinine 5.05. Glucose 101. He is continued on DuoNeb ventilations, Perforomist inhalations, Solu-Medrol. He remains on 80 mg of IV Lasix daily. Heparin for DVT prophylaxis. Currently in a -1.9 L balance. Plan is for hemodialysis today. Plan will be for insertion of a permanent dialysis catheter. Objective - Vital Signs Vital signs: Vital Signs Temp 98.7 F 10/03/23 08:00 Pulse 99 10/03/23 10:00 Resp 21 10/03/23 10:00 BP 133/86 10/03/23 10:00 Pulse Ox 96 10/03/23 10:00 FiO2 40 10/01/23 10:33 Intake & Output 10/02/23 10/03/23 10/03/23 18:59 06:59 18:59 Intake Total 710 240 230 Output Total 1105 1770 380 Balance -395 1530 -150 Weight 83.9 kg 91.7 kg Intake: IV 290 240 110 0.9 NS 240 240 60 cefTRIAXone 2 gm In 50 50 Sodium Chloride 0.9% 50 ml @ 100 mls/hr IVPB Q24HR [facility] Rx#:[id number] Oral 420 120 Output: Urine 1105 1770 380 Other: Voiding Method Indwelling Catheter Indwelling Catheter Indwelling Catheter # Bowel Movements 1 ABP, PAP, CO, CI - Last Documented Arterial Blood Pressure 116/95 - Exam GENERAL EXAM: Alert, 58-year-old male patient, on 2 L nasal cannula, comfortable in no apparent distress. HEAD: Normocephalic. EYES: Normal reaction of pupils, equal size. NOSE: Clear with pink turbinates. THROAT: No erythema or exudates. NECK: No masses, no JVD. CHEST: No chest wall deformity. LUNGS: Equal air entry with bilateral scattered rhonchi. CVS: S1 and S2 normal with no audible murmur, regular rhythm. ABDOMEN: No hepatosplenomegaly, normal bowel sounds, no guarding or rigidity. SPINE: No scoliosis or deformity SKIN: No rashes CENTRAL NERVOUS SYSTEM: No focal deficits, tone is normal in all 4 extremities. EXTREMITIES: There is 1+ peripheral edema. No clubbing, no cyanosis. Peripheral pulses are intact. - Labs CBC & Chem 7: 10/03/23 05:45 10/03/23 05:45 Labs: Abnormal Lab Results - Last 24 Hours (Table) 10/02/23 10/02/23 10/02/23 Range/Units 11:36 17:41 19:45 WBC (3.8-10.6) k/uL RBC (4.30-5.90) m/uL Hgb (13.0-17.5) gm/dL Hct (39.0-53.0) % Sodium (137-145) mmol/L Chloride (98-107) mmol/L BUN (9-20) mg/dL Creatinine (0.66-1.25) mg/dL Glucose (74-99) mg/dL POC Glucose (mg/dL) 113 H 111 H 124 H (70-110) mg/dL Calcium (8.4-10.2) mg/dL 10/03/23 10/03/23 Range/Units 05:45 05:45 WBC 16.0 H (3.8-10.6) k/uL RBC 2.53 L (4.30-5.90) m/uL Hgb 8.0 L (13.0-17.5) gm/dL Hct 24.2 L (39.0-53.0) % Sodium 128 L (137-145) mmol/L Chloride 94 L (98-107) mmol/L BUN 106 H* (9-20) mg/dL Creatinine 5.05 H (0.66-1.25) mg/dL Glucose 101 H (74-99) mg/dL POC Glucose (mg/dL) (70-110) mg/dL Calcium 8.1 L (8.4-10.2) mg/dL Assessment and Plan Assessment: Acute hypoxic respiratory failure secondary to multilobar pneumonia secondary to Legionella pneumonia patient was intubated on 09/18, underwent bronchoscopy and lavage, urine Legionella antigen is positive, patient is maintained on Rocephin and on Levaquin. Extubated on 10/01/2023. Septic shock, resolved Acute exacerbation of COPD, patient is on bronchodilators. Pulmonary status is gradually improving, still on bronchodilators and steroids Acute kidney injury secondary to above/secondary to acute tubular necrosis and severe dehydration and sepsis on his initial presentation now on hemodialysis Acute transaminitis secondary to sepsis Benign essential hypertension Dyslipidemia Coronary artery disease [id number] smoking history Bacteremia with Streptococcus viridans group D, being addressed by infectious disease on the case. Repeat cultures are negative so far from 09/24/2023 Plan: The patient was seen and evaluated Labs and medications reviewed Stable and on 2 L nasal cannula Continued on ceftriaxone and Levaquin Continued on bronchodilators and steroids Heparin for DVT prophylaxis Plan is for dialysis today May require permacath placement Titrate down the FiO2 as tolerated Increase his activity as tolerated I have personally seen and examined the patient, performed the documentation and the assessment and plan as written. Number of minutes spent on the visit: 10.
[2023-10-03 11:04] LABS: Glucose,Whole Blood 121 mg/dL (70-110)
--- NOTE | 2023-10-03 13:06 | P.PN ---
Subjective Progress Note Date: 10/03/23 58-year-old male with history of hypertension, dyslipidemia, coronary artery disease presenting with shortness of breath. In the ED, temperature was 103.3, pulse 131, respiratory rate 30, blood pressure 118/86, saturating 88% on room air. WBC 21.2, hemoglobin 13, pH 7.41, pCO2 33, sodium 122, potassium 3.4, bicarb 18, anion gap 20, creatinine 5.94, lactic acid 3.9, magnesium 0.9, total bili 1.8, AST 110, ALT 53, ALP 105, troponin 0.102. Respiratory viral panel negative. Chest x-ray shows multifocal pneumonia right lower lobe greater than left. EKG shows sinus tachycardia with right bundle you block. Pelvic x-ray shows no acute process. Head CT shows no acute process. Pulmonology, nephrolo gy, cardiology consulted. Respiratory function progressively worsening despite being on broad-spectrum antibiotics. Patient is was subsequently intubated, on vasopressors. Troponin mildly elevated 0.102, 0.116, 0.132. Cardiology consulted, Echo EF 50-55% with no regional wall motion abnormalities, likely Type II NC. Right femoral HD catheter inserted 09/19, daily HD ordered by Nephrology. He underwent bronchoscopy with lavage on 09/19 with significant purulence noted in the RLL. His blood culture also grew strep viridans. BAL cultures grew alfonzo albicans. Legionella Ag +, maintained on Rocephin and Levaquin. Vasopressin and Levophed weaned off 09/20. Noted to be agitated on max dose of Fentanyl and Propofol, tachycardic and hypertensive, started on Ativan and CIWA protocol. Started on Dexamedetomidine for a short period of time for agitation. Extubated on 09/30. He remains on IV Lasix pending insertion of permanent dialysis catheter. 10/02 Patient was seen and examined. Extubated 09/30. Currently on 3L NC. Doing well. Denies any SOB. Continued on Lasix 80 mg IV QD. Antibiotics include Levaquin 500 mg IV Q48H (started 09/19 for Legionella PNA) and Rocephin 2g IV QD (started 09/22 for strep viridans BCx). Receiving intermitted ativan per CIWA protocol (none since 09/30). CBC WBC 16 Hg 8 Hct 24.2. BMP Na 128, Cl 94, BUN 106, Cr 5.05, glu 101, Ca 8.1. Plans for HD today. Vascular surgery on board for permenant dialysis catheter. General: No acute distress. Derm: warm, dry Head: atraumatic, normocephalic, symmetric Eyes: no lid lag, normal sclera Mouth: no lip lesion, mucus membranes moist Cardiovascular: Normal S1 S2 tachycardic. No murmurs, rubs, gallops Lungs: Coarse BS BL, no accessory muscle use Ext: no gross muscle atrophy, trace LE edema, no contractures Neuro: No focal neurologic deficits Psych: Alert and oriented x 3 Based on my assessment of this patient, this patient meets a moderate complexity level of care. Acute hypoxic respiratory failure due to below Septic shock due to Legionella pneumonia: Levofloxacin 500 mg IV Q48H started 09/19 and Rocephin 2g IV QD started on 09/22. Vancomycin, Cefepime and Azithromycin discontinued. Levophed titrated to maintain MAP > 65. DuoNeb Q4H. SoluMedrol 40 mg IV TID. Telemetry monitoring. BAL Cx alfonzo albicans. BCx streptococcus viridans. ULegionella Ag +. Pulmonary on board. ID on board. Strep viridans bacteremia: BCx 09/17 streptococcus viridans. Repeat BCx 09/23 and 09/22 negative. Continued on Rocephin 2g IV QD. Likely contaminant. Generalized weakness: PT and OT consulted. Patient is extremely debilitated. He may benefit from IPR. Likely EtOH withdrawal: Denies EtOH use. Ativan PRN per CIWA scale. Dexmedetomid ine weaned off. Troponin elevation, Type II NC: Plavix 75 mg PO QD. Metoprolol 25 mg PO BID. Lipitor 80 mg PO QD. Acute kidney injury: Hold Lisinopril-HCTZ. Temporary HD catheter inserted 09/19. Plans for HD on 10/02. Needs permenant HD catheter, Vascular Sx consult pending. Phoslo 667 mg PO TID. Aranesp 40 mcg SQ weekly. Nephrology on board. Hypertension: Hydralazine 50 mg PO TID and 10 mg IV Q4H PRN with parameters. Metoprolol 25 mg PO BID. Currently weaned off Clevidipine drip since 09/27. Hyponatremia: Likely related to severe dehydration and Legionella. Hypocalcemia: Status post 1g Ca gluconate 09/19. Ca today 8.1. Tums 500 mg PO TID. Transaminitis: Abd US intermediate legion in the right hepatic lobe, MRI recommended. CBD within normal limits. Normocytic anemia: No signs of active bleeding. Monitor. Resolved: HyperK, Metabolic acidosis CODE STATUS: FULL CODE DVT Prophylaxis: Heparin SQ GI Prophylaxis: Protonix IV Designated medical POA if patient is not able to make medical decisions for themselves: I have reviewed the following collection systems consultant notes: Pulmonary, ID, Nephrology. I have reviewed the results of the following tests: CBC. BMP. I have discussed the care of this patient with the following independent historian: I have independently interpreted the following test below: I have discussed the management of this patient with the following physician: Dr. Nelson Objective - Vital Signs Vital signs: Vital Signs Temp 98.1 F 10/03/23 04:00 Pulse 101 H 10/03/23 07:00 Resp 23 10/03/23 07:00 BP 140/77 10/03/23 07:00 Pulse Ox 95 10/03/23 07:00 FiO2 40 10/01/23 10:33 Intake & Output 10/02/23 10/03/23 10/03/23 18:59 06:59 18:59 Intake Total 710 240 20 Output Total 1105 1770 80 Balance -395 -1530 -60 Weight 83.9 kg 91.7 kg Intake: IV 290 240 20 0.9 NS 240 240 20 cefTRIAXone 2 gm In 50 Sodium Chloride 0.9% 50 ml @ 100 mls/hr IVPB Q24HR [facility] Rx#:[id number] Oral 420 Output: Urine 1105 1770 80 Other: Voiding Method Indwelling Catheter Indwelling Catheter # Bowel Movements 1 ABP, PAP, CO, CI - Last Documented Arterial Blood Pressure 116/95 - Labs CBC & Chem 7: 10/03/23 05:45 10/03/23 05:45 Labs: Abnormal Lab Results - Last 24 Hours (Table) 10/02/23 10/02/23 10/02/23 Range/Units 11:36 17:41 19:45 WBC (3.8-10.6) k/uL RBC (4.30-5.90) m/uL Hgb (13.0-17.5) gm/dL Hct (39.0-53.0) % Sodium (137-145) mmol/L Chloride (98-107) mmol/L BUN (9-20) mg/dL Creatinine (0.66-1.25) mg/dL Glucose (74-99) mg/dL POC Glucose (mg/dL) 113 H 111 H 124 H (70-110) mg/dL Calcium (8.4-10.2) mg/dL 10/03/23 10/03/23 Range/Units 05:45 05:45 WBC 16.0 H (3.8-10.6) k/uL RBC 2.53 L (4.30-5.90) m/uL Hgb 8.0 L (13.0-17.5) gm/dL Hct 24.2 L (39.0-53.0) % Sodium 128 L (137-145) mmol/L Chloride 94 L (98-107) mmol/L BUN 106 H* (9-20) mg/dL Creatinine 5.05 H (0.66-1.25) mg/dL Glucose 101 H (74-99) mg/dL POC Glucose (mg/dL) (70-110) mg/dL Calcium 8.1 L (8.4-10.2) mg/dL
[2023-10-03 16:23] LABS: Glucose,Whole Blood 124 mg/dL (70-110)
[2023-10-03] MEDS: SODIUM CHLORIDE 0.9% 500 ML 500 ML IV ONE (16:38)
[2023-10-03] MEDS: LIDOCAINE 1% INJ 10MG/ML (20 ML MDV) SQ ONE ×2 (16:55→17:03)
[2023-10-03] MEDS: HEPARIN SODIUM 1,000 UN/ML (10ML VL) IV ONE (17:13)
--- NOTE | 2023-10-03 17:27 | P.PCN ---
Description of Procedure: Preop diagnosis acute chronic renal failure Post same. #1 ultrasound-guided 23 cm dialysis catheter placed right jugular approach 2. Removal of right femoral dialysis catheter Patient brought to the Paint Line [employer] right side of the neck and chest was prepped and draped in Prestel manner 1% lidocaine were infiltrated to the neck area. Ultrasound-guided micropuncture introduced right jugular vein micropuncture guide was passed then 4 point dilator advanced up the guidewire. Then we placed that we passed the guidewire which was parked at the inferior vena cava. Then a tunnel was created through the tunnel we brought 23 cm dialysis catheter. Dilator was brought up the guidewire then replaced the sheath. The guidewire under fluoroscopic control guidewire was removed through the sheath we introduced dialysis catheter tip of catheter in superior vena cava atrial junction flushed with heparin saline hep-locked. Secured with 3-0 nylon and dressing applied patient prior to the procedure well and then the right groin was prepped and draped in Prestel manner there was 2 stitches which were removed temporary dialysis catheter was removed pressure was held patient tolerated procedure well patient will need x-ray of the chest and transferred to his room and assess for condition thank you
--- NOTE | 2023-10-03 17:42 | IR ---
EXAMINATION TYPE: IR cvc insert central tunneled Intraoperative/procedural fluoroscopic services were provided. CLINICAL INDICATION:Male, 58 years old with history of RENAL FAILURE; , [facility] Total fluoroscopy time is 0.6 min. DAP: 74.26 [id number] Please see the operative/procedural note for further details.
--- NOTE | 2023-10-03 18:37 | XR ---
EXAMINATION TYPE: XR chest 1V portable DATE OF EXAM: 10/03/2023 6:06 PM CLINICAL INDICATION:Male, 58 years old with history of hemodialysis catherter placement; [facility] COMPARISON: Chest radiographs from 10/01/2023 TECHNIQUE: XR chest 1V portable Frontal view of the chest. FINDINGS: Lungs/Pleura: Bilateral streaky atelectasis/scarring There is no evidence of pleural effusion, focal consolidation, or pneumothorax. Pulmonary vascularity: Unremarkable. Heart/mediastinum: Cardiomediastinal silhouette is unremarkable. Musculoskeletal: No acute osseous pathology. Other findings: None Lines/Tubes: Right internal jugular central venous catheter with distal tip at the cavoatrial junction. Left-sided PICC with distal tip at the superior vena cava/brachiocephalic confluence. IMPRESSION: Left PICC and right central venous catheter in appropriate position. No evidence for pneumothorax.
[2023-10-03 19:48] LABS: Glucose,Whole Blood 165 mg/dL (70-110)
[2023-10-03 20:17] LABS: Glucose,Whole Blood 195 mg/dL (70-110)
--- NOTE | 2023-10-03 21:56 | P.PN ---
Subjective Progress Note Date: 10/02/23 Principal diagnosis: Reason for follow-up is pneumonia and sepsis Patient is a 58-year-old male with a past medical history significant for hypertension [place] current everyday smoker presenting to the hospital for evaluation of increasing shortness of breath patient got intubated because of worsening respiratory status was noted to be septic secondary to pneumonia with evidence of right middle lobe infiltrate and urine for Legionella antigen came back positive. On today's evaluation that is 10/02/2023, Patient is afebrile patient is currently on 2 L nasal cannula oxygen and denies having any shortness of breath, the patient denies any chest pain or any worsening cough, the patient denies any nausea vomiting did not have any abdominal pain and no diarrhea Patient white count of 22.3 creatinine is 4.75 Objective - Vital Signs Vital signs: Vital Signs Temp 98.8 F 10/02/23 08:00 Pulse 85 10/02/23 11:00 Resp 15 10/02/23 11:00 BP 146/94 10/02/23 11:00 Pulse Ox 96 10/02/23 11:00 FiO2 40 10/01/23 10:33 Intake & Output 10/01/23 10/02/23 10/02/23 18:59 06:59 18:59 Intake Total 1143.234 951 230 Output Total 795 1700 480 Balance 348.234 -749 -250 Intake: IV 370 240 130 0.9 NS 220 240 80 Levofloxacin 500Mg-D5w 100 Pmx 500 mg In Dextrose/ Water 1 100ml.bag @ 100 mls/hr IVPB Q48H [facility] Rx#: [id number] cefTRIAXone 2 gm In 50 50 Sodium Chloride 0.9% 50 ml @ 100 mls/hr IVPB Q24HR [facility] Rx#:[id number] Intake, IV Titration 269.234 Amount Dexmedetomidine/0.9% NaCl 200.000 (Pmx) 400 mcg In Empty Bag 1 bag @ 0.2 MCG/KG/HR 4.49 mls/hr IV .[id number] [facility] Rx#:[id number] fentaNYL (PF). 1,000 mcg 69.234 In Sodium Chloride 0.9% 80 ml @ 0.5 MCG/KG/HR 4. 196 mls/hr IV .[id number] [facility] Rx#:[id number] Oral 444 711 100 Tube Feeding 60 Output: Urine 795 1700 480 Other: Voiding Method Indwelling Catheter Indwelling Catheter Indwelling Catheter ABP, PAP, CO, CI - Last Documented Arterial Blood Pressure 116/95 - Exam GENERAL DESCRIPTION: Middle-age male lying in bed in no distress RESPIRATORY SYSTEM: Unlabored breathing , decreased breath sounds at bases HEART: S1 S2 regular rate and rhythm , ABDOMEN: Soft , no tenderness EXTREMITIES: Mild edema feet - Labs CBC & Chem 7: 10/03/23 05:45 10/03/23 05:45 Labs: Abnormal Lab Results - Last 24 Hours (Table) 10/01/23 10/01/23 10/02/23 Range/Units 11:58 17:44 00:24 WBC (3.8-10.6) k/uL RBC (4.30-5.90) m/uL Hgb (13.0-17.5) gm/dL Hct (39.0-53.0) % Plt Count (150-450) k/uL Sodium (137-145) mmol/L Chloride (98-107) mmol/L Carbon Dioxide (22-30) mmol/L BUN (9-20) mg/dL Creatinine (0.66-1.25) mg/dL Glucose (74-99) mg/dL POC Glucose (mg/dL) 140 H 173 H 125 H (70-110) mg/dL Calcium (8.4-10.2) mg/dL 10/02/23 10/02/23 10/02/23 Range/Units 04:15 04:15 05:14 WBC 22.3 H (3.8-10.6) k/uL RBC 2.70 L (4.30-5.90) m/uL Hgb 8.6 L (13.0-17.5) gm/dL Hct 26.5 L (39.0-53.0) % Plt Count 476 H (150-450) k/uL Sodium 129 L (137-145) mmol/L Chloride 94 L (98-107) mmol/L Carbon Dioxide 19 L (22-30) mmol/L BUN 110 H* (9-20) mg/dL Creatinine 4.75 H (0.66-1.25) mg/dL Glucose 131 H (74-99) mg/dL POC Glucose (mg/dL) 138 H (70-110) mg/dL Calcium 7.9 L (8.4-10.2) mg/dL Assessment and Plan (1) Legionella pneumonia Current Visit: Yes Status: Acute Code(s): A48.1 - LEGIONNAIRES' DISEASE SNOMED Code(s): 234702907 (2) Bacteremia Current Visit: Yes Status: Acute Code(s): R78.81 - BACTEREMIA SNOMED Code(s): 9858748 (3) Pneumonia Current Visit: Yes Status: Acute Code(s): J18.9 - PNEUMONIA, UNSPECIFIED ORGANISM SNOMED Code(s): 484569053 (4) Leukocytosis Current Visit: Yes Status: Acute Code(s): D72.829 - ELEVATED WHITE BLOOD CELL COUNT, UNSPECIFIED SNOMED Code(s): 881484743 Plan: 1patient presented hospital with sepsis in this patient who did have fever tachycardia elevated white count, in this patient with evidence of pneumonia and urine tested positive for Legionella antigen more likely etiology of the sepsis and pneumonia 2 patient did have a positive blood culture with a strep species which has been finalized as strep viridans, the patient repeat blood cultures are pending, patient is currently covered with the Rocephin 2 g daily 3-patient to continue with the Levaquin for his underlying Legionella pneumonia to finish a 2-week course of therapy 4-leukocytosis more likely steroid related, the patient white count is slightly up today and will monitor closely we will repeat a CBC with a.m. lab Dictation was produced using [employer] dictation software. please excuse any grammatical, word or spelling errors.
--- NOTE | 2023-10-03 21:57 | P.PN ---
Subjective Progress Note Date: 10/03/23 Principal diagnosis: Reason for follow-up is pneumonia and sepsis Patient is a 58-year-old male with a past medical history significant for hypertension [place] current everyday smoker presenting to the hospital for evaluation of increasing shortness of breath patient got intubated because of worsening respiratory status was noted to be septic secondary to pneumonia with evidence of right middle lobe infiltrate and urine for Legionella antigen came back positive. On today's evaluation that is 10/03/2023, patient has been afebrile, patient is breathing comfortably and is currently on 2 L nasal cannula oxygen, patient cough has decreased intensity mostly dry in nature, the patient denies having any chest pain denies nausea vomiting or diarrhea and no abdominal pain. Patient white count is 16.0 creatinine is 5.05 Objective - Vital Signs Vital signs: Vital Signs Temp 98.7 F 10/03/23 08:00 Pulse 101 H 10/03/23 11:58 Resp 18 10/03/23 11:00 BP 129/72 10/03/23 11:00 Pulse Ox 96 10/03/23 11:00 FiO2 40 10/01/23 10:33 Intake & Output 10/02/23 10/03/23 10/03/23 18:59 06:59 18:59 Intake Total 710 240 270 Output Total 1105 1770 490 Balance -395 -1530 -220 Weight 83.9 kg 91.7 kg Intake: IV 290 240 150 0.9 NS 240 240 100 cefTRIAXone 2 gm In 50 50 Sodium Chloride 0.9% 50 ml @ 100 mls/hr IVPB Q24HR [facility] Rx#:[id number] Oral 420 120 Output: Urine 1105 1770 490 Other: Voiding Method Indwelling Catheter Indwelling Catheter Indwelling Catheter # Bowel Movements 1 ABP, PAP, CO, CI - Last Documented Arterial Blood Pressure 116/95 - Exam GENERAL DESCRIPTION: Middle-age male lying in bed in no distress RESPIRATORY SYSTEM: Unlabored breathing , decreased breath sounds at bases HEART: S1 S2 regular rate and rhythm , ABDOMEN: Soft , no tenderness EXTREMITIES: Mild edema feet - Labs CBC & Chem 7: 10/03/23 05:45 10/03/23 05:45 Labs: Abnormal Lab Results - Last 24 Hours (Table) 10/02/23 10/02/23 10/03/23 Range/Units 17:41 19:45 05:45 WBC 16.0 H (3.8-10.6) k/uL RBC 2.53 L (4.30-5.90) m/uL Hgb 8.0 L (13.0-17.5) gm/dL Hct 24.2 L (39.0-53.0) % Sodium (137-145) mmol/L Chloride (98-107) mmol/L BUN (9-20) mg/dL Creatinine (0.66-1.25) mg/dL Glucose (74-99) mg/dL POC Glucose (mg/dL) 111 H 124 H (70-110) mg/dL Calcium (8.4-10.2) mg/dL 10/03/23 10/03/23 Range/Units 05:45 11:03 WBC (3.8-10.6) k/uL RBC (4.30-5.90) m/uL Hgb (13.0-17.5) gm/dL Hct (39.0-53.0) % Sodium 128 L (137-145) mmol/L Chloride 94 L (98-107) mmol/L BUN 106 H* (9-20) mg/dL Creatinine 5.05 H (0.66-1.25) mg/dL Glucose 101 H (74-99) mg/dL POC Glucose (mg/dL) 121 H (70-110) mg/dL Calcium 8.1 L (8.4-10.2) mg/dL Assessment and Plan (1) Legionella pneumonia Current Visit: Yes Status: Acute Code(s): A48.1 - LEGIONNAIRES' DISEASE SNOMED Code(s): 379213605 (2) Bacteremia Current Visit: Yes Status: Acute Code(s): R78.81 - BACTEREMIA SNOMED Code(s): 6233405 (3) Pneumonia Current Visit: Yes Status: Acute Code(s): J18.9 - PNEUMONIA, UNSPECIFIED ORGANISM SNOMED Code(s): 004750942 (4) Leukocytosis Current Visit: Yes Status: Acute Code(s): D72.829 - ELEVATED WHITE BLOOD CELL COUNT, UNSPECIFIED SNOMED Code(s): 695423825 Plan: 1patient presented hospital with sepsis in this patient who did have fever tachycardia elevated white count, in this patient with evidence of pneumonia and urine tested positive for Legionella antigen more likely etiology of the sepsis and pneumonia 2 patient did have a positive blood culture with a strep species which has been finalized as strep viridans, the patient repeat blood cultures are pending, p atient is currently covered with the Rocephin 2 g daily 3-patient has received about 2-day course of IV Levaquin for underlying Legionella pneumonia should be enough and will be discontinued 4-leukocytosis more likely steroid related, the patient white count is trending down and will monitor closely Dictation was produced using [employer] dictation software. please excuse any grammatical, word or spelling errors. Time with Patient: Less than 30
[2023-10-04 06:27] LABS: Glucose,Whole Blood 93 mg/dL (70-110)
[2023-10-04 07:25] LABS: HGB 7.5 gm/dL (13.0-17.5); MCH 31.6 pg (25.0-35.0); MCHC 32.6 g/dL (31.0-37.0); Mean Platelet Volume 8.5; Platelet Count 348 k/uL (150-450); RBC 2.37 m/uL (4.30-5.90); WBC 12.6 k/uL (3.8-10.6)
[2023-10-04 08:23] LABS: African American GFR (CKD) 20 (>60 ml/min/1.73 sqM); Anion Gap 8 mmol/L; Blood Urea Nitrogen 61 mg/dL (9-20); Calcium 8.2 mg/dL (8.4-10.2); Carbon Dioxide 26 mmol/L (22-30); Chloride 95 mmol/L (98-107); Glucose 81 mg/dL (74-99); Non-African American GFR(CKD) 17 (>60 ml/min/1.73 sqM); Potassium 3.9 mmol/L (3.5-5.1); Sodium 129 mmol/L (137-145)
[2023-10-04] MEDS ORDERED: predniSONE 20 MG TAB PO SCH (09:00)
--- NOTE | 2023-10-04 11:05 | P.PN ---
Subjective Progress Note Date: 10/04/23 The patient is seen today October 03, 2023 in follow-up in the intensive care unit. He had originally been admitted for acute hypoxic respiratory failure secondary to Legionella pneumonia. He required intubation and mechanical ventilatory support from 09/19/23 through October 01, 2023. He is currently sitting up in bed. Awake and alert in no acute distress. He is now maintaining good O2 saturations in the 90s on 2 L/min per nasal cannula. He is continued on ceftriaxone and Levaquin. Revealed no growth. Bronchial wash cultures from 09/20/2023 revealed Farzana. On 8.0. Platelets 415. Sodium 128. Potassium 4.0. Bicarb 24. BUN 106. Creatinine 5.05. Glucose 101. He is continued on DuoNeb ventilations, Perforomist inhalations, Solu-Medrol. He remains on 80 mg of IV Lasix daily. Heparin for DVT prophylaxis. Currently in a -1.9 L balance. Plan is for hemodialysis today. Plan will be for insertion of a permanent dialysis catheter. The patient is seen today October 04, 2023 in follow-up in the intensive care unit. He is currently sitting up in bed. Awake and alert in no acute distress. He is currently maintaining good O2 saturations in the 90s on 2 L/min per nasal cannula. He is afebrile. White count 12.6. Hemoglobin 7.5. Platelets 348. Sodium 129. Potassium 3.9. Bicarb 26. BUN 61. Creatinine 3.63. Chest x-ray post left PICC line and placement revealed bilateral streaky a telectasis/scarring. No pleural effusion, consolidation or pneumothorax. Follow-up blood cultures revealed no growth. He is continued on ceftriaxone. Remains on bronchodilators Solu-Medrol. Oral diuretics. Heparin for DVT prophylaxis. Objective - Vital Signs Vital signs: Vital Signs Temp 98.9 F 10/04/23 08:00 Pulse 111 H 10/04/23 08:43 Resp 16 10/04/23 08:00 BP 126/73 10/04/23 08:00 Pulse Ox 95 10/04/23 08:00 FiO2 40 10/01/23 10:33 Intake & Output 10/03/23 10/04/23 10/04/23 18:59 06:59 18:59 Intake Total 940 340 270 Output Total 4200 1005 125 Balance -3260 -665 145 Weight 91.7 kg 83 kg Intake: IV 320 340 70 0.9 NS 220 240 20 Levofloxacin 500Mg-D5w 100 Pmx 500 mg In Dextrose/ Water 1 100ml.bag @ 100 mls/hr IVPB Q48H [facility] Rx#: [id number] cefTRIAXone 2 gm In 50 50 Sodium Chloride 0.9% 50 ml @ 100 mls/hr IVPB Q24HR [facility] Rx#:[id number] Oral 120 200 Hemodialysis 500 Output: Urine 700 1005 125 Hemodialysis 3500 Other: Voiding Method Indwelling Catheter Indwelling Catheter Indwelling Catheter ABP, PAP, CO, CI - Last Documented Arterial Blood Pressure 116/95 - Exam GENERAL EXAM: Alert, oriented, pleasant 58-year-old male patient, on 2 L nasal cannula, in no apparent distress. HEAD: Normocephalic. EYES: Normal reaction of pupils, equal size. NOSE: Clear with pink turbinates. THROAT: No erythema or exudates. NECK: No masses, no JVD. CHEST: No chest wall deformity. LUNGS: Equal air entry with bilateral scattered rhonchi. CVS: S1 and S2 normal with no audible murmur, regular rhythm. ABDOMEN: No hepatosplenomegaly, normal bowel sounds, no guarding or rigidity. SPINE: No scoliosis or deformity SKIN: No rashes CENTRAL NERVOUS SYSTEM: No focal deficits, tone is normal in all 4 extremities. EXTREMITIES: There is 1+ peripheral edema. No clubbing, no cyanosis. Peripheral pulses are intact. - Labs CBC & Chem 7: 10/04/23 06:30 10/04/23 06:30 Labs: Abnormal Lab Results - Last 24 Hours (Table) 10/03/23 10/03/23 10/03/23 Range/Units 11:03 16:20 19:46 WBC (3.8-10.6) k/uL RBC (4.30-5.90) m/uL Hgb (13.0-17.5) gm/dL Hct (39.0-53.0) % Sodium (137-145) mmol/L Chloride (98-107) mmol/L BUN (9-20) mg/dL Creatinine (0.66-1.25) mg/dL POC Glucose (mg/dL) 121 H 124 H 165 H (70-110) mg/dL Calcium (8.4-10.2) mg/dL 10/03/23 10/04/23 10/04/23 Range/Units 20:17 06:30 06:30 WBC 12.6 H (3.8-10.6) k/uL RBC 2.37 L (4.30-5.90) m/uL Hgb 7.5 L (13.0-17.5) gm/dL Hct 23.0 L (39.0-53.0) % Sodium 129 L (137-145) mmol/L Chloride 95 L (98-107) mmol/L BUN 61 H (9-20) mg/dL Creatinine 3.63 H (0.66-1.25) mg/dL POC Glucose (mg/dL) 195 H (70-110) mg/dL Calcium 8.2 L (8.4-10.2) mg/dL Assessment and Plan Assessment: Acute hypoxic respiratory failure secondary to multilobar pneumonia secondary to Legionella pneumonia patient was intubated on 09/18, underwent bronchoscopy and lavage, urine Legionella antigen is positive, patient is maintained on Rocephin. Extubated on 10/01/2023. Septic shock, resolved Acute exacerbation of COPD, patient is on bronchodilators. Pulmonary status is gradually improving, still on bronchodilators and steroids Acute kidney injury secondary to above/secondary to acute tubular necrosis and severe dehydration and sepsis on his initial presentation now on hemodialysis Acute transaminitis secondary to sepsis Benign essential hypertension Dyslipidemia Coronary artery disease [id number] smoking history Bacteremia with Streptococcus viridans group D, being addressed by infectious disease on the case. Repeat cultures are negative so far from 09/24/2023 Plan: The patient was seen and evaluated Labs and medications reviewed PICC line placed Continued on ceftriaxone Continued on bronchodilators Discontinue Solu-Medrol, initiated prednisone taper Cleared to transfer out of the ICU today Titrate down the FiO2 as tolerated Increase his activity as tolerated I have personally seen and examined the patient, performed the documentation and the assessment and plan as written. Number of minutes spent on the visit: 10.
--- NOTE | 2023-10-04 11:12 | P.PN ---
Subjective patient is seen for follow-up for acute kidney injury. patient is awake and comfortable. Urine output at 80-100 ML per hour. status post IJ permacath placement yesterday. Patient is scheduled for hemodialysis in a.m. No significant complaints today. Objective - Vital Signs Vital signs: Vital Signs Temp 98.9 F 10/04/23 08:00 Pulse 101 H 10/04/23 11:08 Resp 16 10/04/23 08:00 BP 126/73 10/04/23 08:00 Pulse Ox 95 10/04/23 08:00 FiO2 40 10/01/23 10:33 Intake & Output 10/03/23 10/04/23 10/04/23 18:59 06:59 18:59 Intake Total 940 340 270 Output Total 4200 1005 125 Balance -3260 -665 145 Weight 91.7 kg 83 kg Intake: IV 320 340 70 0.9 NS 220 240 20 Levofloxacin 500Mg-D5w 100 Pmx 500 mg In Dextrose/ Water 1 100ml.bag @ 100 mls/hr IVPB Q48H [facility] Rx#: [id number] cefTRIAXone 2 gm In 50 50 Sodium Chloride 0.9% 50 ml @ 100 mls/hr IVPB Q24HR [facility] Rx#:[id number] Oral 120 200 Hemodialysis 500 Output: Urine 700 1005 125 Hemodialysis 3500 Other: Voiding Method Indwelling Catheter Indwelling Catheter Indwelling Catheter ABP, PAP, CO, CI - Last Documented Arterial Blood Pressure 116/95 - Exam patient is awake and comfortable No acute distress Examination of the heart S1 and S2 Examination the lungs bilateral breath sounds are heard Abdomen is soft Examination of lower extremities shows 1+ edema bilaterally BAKER PASTRY exam is grossly intact. - Labs CBC & Chem 7: 10/04/23 06:30 10/04/23 06:30 Labs: Abnormal Lab Results - Last 24 Hours (Table) 10/03/23 10/03/23 10/03/23 Range/Units 16:20 19:46 20:17 WBC (3.8-10.6) k/uL RBC (4.30-5.90) m/uL Hgb (13.0-17.5) gm/dL Hct (39.0-53.0) % Sodium (137-145) mmol/L Chloride (98-107) mmol/L BUN (9-20) mg/dL Creatinine (0.66-1.25) mg/dL POC Glucose (mg/dL) 124 H 165 H 195 H (70-110) mg/dL Calcium (8.4-10.2) mg/dL 10/04/23 10/04/23 Range/Units 06:30 06:30 WBC 12.6 H (3.8-10.6) k/uL RBC 2.37 L (4.30-5.90) m/uL Hgb 7.5 L (13.0-17.5) gm/dL Hct 23.0 L (39.0-53.0) % Sodium 129 L (137-145) mmol/L Chloride 95 L (98-107) mmol/L BUN 61 H (9-20) mg/dL Creatinine 3.63 H (0.66-1.25) mg/dL POC Glucose (mg/dL) (70-110) mg/dL Calcium 8.2 L (8.4-10.2) mg/dL Assessment and Plan Assessment: 1. Acute kidney injury, ATN. Secondary to hypotension and underlying infection. Nonoliguric. Serologies are negative except for positive ROE. Currently with indwelling Barnes catheter. Ultrasound shows no evidence of obstruction. UA shows 1+ protein and moderate blood WBCs 16. Started on hemodialysis on 09/20/2023. Good urine output but serum creatinine remains around 5. We will continue with hemodialysis and continue to monitor for recovery of renal function. 2. Community-acquired bilateral pneumonia maintained on vancomycin, cefepime and azithromycinurine legionnaire antigen positive 3. Acute hypoxic respiratory failure, status post extubation 4. Anion gap metabolic acidosis associated with acute kidney injury. 5. Hypokalemia 6. Hyponatremia,hypervolemic. Improved with dialysis 7. Volume overload Plan: continue to monitor for recovery of renal function. continue with IV Lasix. Continue with hemodialysis on Tuesday schedule.
[2023-10-04 12:05] LABS: Glucose,Whole Blood 128 mg/dL (70-110)
--- NOTE | 2023-10-04 12:05 | P.PN ---
Subjective Progress Note Date: 10/04/23 58-year-old male with history of hypertension, dyslipidemia, coronary artery disease presenting with shortness of breath. In the ED, temperature was 103.3, pulse 131, respiratory rate 30, blood pressure 118/86, saturating 88% on room air. WBC 21.2, hemoglobin 13, pH 7.41, pCO2 33, sodium 122, potassium 3.4, bicarb 18, anion gap 20, creatinine 5.94, lactic acid 3.9, magnesium 0.9, total bili 1.8, AST 110, ALT 53, ALP 105, troponin 0.102. Respiratory viral panel negative. Chest x-ray shows multifocal pneumonia right lower lobe greater than left. EKG shows sinus tachycardia with right bundle you block. Pelvic x-ray shows no acute process. Head CT shows no acute process. Pulmonology, nephrology and cardiology consulted. Respiratory and renal function progressively worsening despite being on broad- spectrum antibiotics. Patient is was subsequently intubated and started on vasopressors. Troponin mildly elevated 0.102, 0.116, 0.132. Cardiology consulted, Echo EF 50-55% with no regional wall motion abnormalities, likely Type II [place]. Right femoral HD catheter inserted 09/19, daily HD ordered by Nephrology. He underwent bronchoscopy with lavage on 09/19 with significant purulence noted in the RLL. His blood culture also grew strep viridans. BAL cultures grew alfonzo albicans. Legionella Ag +, maintained on Rocephin and Levaquin. Vasopressin and Levophed weaned off 09/20. Noted to be agitated on max dose of Fentanyl and Propofol, tachycardic and hypertensive, started on Dexamedetomidine drip, Ativan and CIWA protocol. Patient was extubated on 09/30. He has been doing well since extubation, currently off all drips. Permanent right jugular HD catheter and removal of right femoral catheter on 10/03 by Vascular surgery. He remains on IV Lasix. PT and OT consulted. 10/03 Patient was seen and examined. Currently on RA. Doing well. Denies any SOB. Continued on Lasix 80 mg IV QD. ID note reviewed, patient has received Levaquin 500 mg IV Q48H (09/19-10/02) now discontinued. Currently on Rocephin 2g IV QD (started 09/22 for strep viridans BCx). Repeat BCx from 09/22 and 09/23 negative. CBC WBC 12.6 Hg 7.5 Hct 23. BMP Na 129, Cl 95, BUN 61, Cr 3.63, Ca 8.2. Nephrology recommends HD on MWF schedule. PT and OT consult pending. General: No acute distress. Derm: warm, dry Head: atraumatic, normocephalic, symmetric, R IJ Eyes: no lid lag, normal sclera Mouth: no lip lesion, mucus membranes moist Cardiovascular: Normal S1 S2 tachycardic. No murmurs, rubs, gallops Lungs: Scattered bilateral ronchi, no accessory muscle use Ext: no gross muscle atrophy, trace LE edema, no contractures Neuro: No focal neurologic deficits Psych: Alert and oriented x 3 Based on my assessment of this patient, this patient meets a moderate complexity level of care. Acute hypoxic respiratory failure due to below: Resolved. Now on RA. Septic shock due to Legionella pneumonia: Shock resolved. Levofloxacin 500 mg IV Q48H (09/19-10/02). Continued on Rocephin 2g IV QD (started on 09/22). Levophed weaned off 09/20. DuoNeb Q4H. SoluMedrol 40 mg IV TID. Telemetry monitoring. BAL Cx alfonzo albicans. BCx streptococcus viridans. ULegionella Ag +. Pulmonary on board. ID on board. Strep viridans bacteremia: BCx 09/17 streptococcus viridans. Repeat BCx 09/23 and 09/22 negative. Continued on Rocephin 2g IV QD. Likely contaminant. ID on board. Generalized weakness: PT and OT consulted. Patient is extremely debilitated. He may benefit from IPR. Likely EtOH withdrawal: Denies EtOH use. Ativan PRN per CIWA scale. Dexmed etomidine weaned off. Troponin elevation, Type II OK: Plavix 75 mg PO QD. Metoprolol 25 mg PO BID. L ipitor 80 mg PO QD. Acute kidney injury: Hold Lisinopril-HCTZ. Permanent right jugular HD catheter a nd removal of right femoral catheter on 10/03 by Vascular surgery. Phoslo 667 mg PO TID. Aranesp 40 mcg SQ weekly. Continue HD on MWF schedule. Nephrology on board. Hypertension: Hydralazine 50 mg PO TID and 10 mg IV Q4H PRN with parameters. Metoprolol 25 mg PO BID. Weaned off Clevidipine drip since 09/27. Hyponatremia: Likely related to severe dehydration and Legionella. Hypocalcemia: Status post 1g Ca gluconate 09/19. Ca today 8.1. Tums 500 mg PO TID. Transaminitis: Abd US intermediate legion in the right hepatic lobe, MRI recommended. CBD within normal limits. Normocytic anemia: No signs of active bleeding. Monitor. Resolved: HyperK, Metabolic acidosis, Acute hypoxic respiratory failure, Shock Dispo: Awaiting PT and OT evaluation. May need SNF versus IPR CODE STATUS: FULL CODE DVT Prophylaxis: Heparin SQ GI Prophylaxis: Protonix IV Designated medical POA if patient is not able to make medical decisions for themselves: I have reviewed the following workday consultant notes: Pulmonary, ID, Nephrology, Vascular surgery. I have reviewed the results of the following tests: CBC, BMP. I have ordered the following tests: CBC, BMP tomorrow. Monitor electrolytes while on Lasix IV. I have discussed the care of this patient with the following independent historian: I have independently interpreted the following test below: I have discussed the management of this patient with the following physician: Objective - Vital Signs Vital signs: Vital Signs Temp 98.6 F 10/04/23 04:00 Pulse 97 10/04/23 07:00 Resp 14 10/04/23 07:00 BP 117/72 10/04/23 07:00 Pulse Ox 94 L 10/04/23 07:00 FiO2 40 10/01/23 10:33 Intake & Output 10/03/23 10/04/23 10/04/23 18:59 06:59 18:59 Intake Total 940 340 20 Output Total 4200 1005 50 Balance -3260 -665 -30 Weight 91.7 kg 83 kg Intake: IV 320 340 20 0.9 NS 220 240 20 Levofloxacin 500Mg-D5w 100 Pmx 500 mg In Dextrose/ Water 1 100ml.bag @ 100 mls/hr IVPB Q48H [facility] Rx#: [id number] cefTRIAXone 2 gm In 50 Sodium Chloride 0.9% 50 ml @ 100 mls/hr IVPB Q24HR [facility] Rx#:[id number] Oral 120 Hemodialysis 500 Output: Urine 700 1005 50 Hemodialysis 3500 Other: Voiding Method Indwelling Catheter Indwelling Catheter ABP, PAP, CO, CI - Last Documented Arterial Blood Pressure 116/95 - Labs CBC & Chem 7: 10/04/23 06:30 10/04/23 06:30 Labs: Abnormal Lab Results - Last 24 Hours (Table) 10/03/23 10/03/23 10/03/23 Range/Units 05:45 11:03 16:20 Sodium 128 L (137-145) mmol/L Chloride 94 L (98-107) mmol/L BUN 106 H* (9-20) mg/dL Creatinine 5.05 H (0.66-1.25) mg/dL Glucose 101 H (74-99) mg/dL POC Glucose (mg/dL) 121 H 124 H (70-110) mg/dL Calcium 8.1 L (8.4-10.2) mg/dL 10/03/23 10/03/23 Range/Units 19:46 20:17 Sodium (137-145) mmol/L Chloride (98-107) mmol/L BUN (9-20) mg/dL Creatinine (0.66-1.25) mg/dL Glucose (74-99) mg/dL POC Glucose (mg/dL) 165 H 195 H (70-110) mg/dL Calcium (8.4-10.2) mg/dL
[2023-10-04] MEDS: FUROSEMIDE 10 MG/ML 10 ML VIAL IV SCH (13:22)
[2023-10-04] MEDS: predniSONE 20 MG TAB PO SCH (16:35)
[2023-10-04 16:39] LABS: Glucose,Whole Blood 121 mg/dL (70-110)
[2023-10-04 21:13] LABS: Glucose,Whole Blood 149 mg/dL (70-110)
[2023-10-05 06:29] LABS: HCT 26.6 % (39.0-53.0); HGB 8.5 gm/dL (13.0-17.5); MCH 31.6 pg (25.0-35.0); MCV 98.7 fL (80.0-100.0); Mean Platelet Volume 8.1; Platelet Count 401 k/uL (150-450); RDW 13.7 % (11.5-15.5); WBC 13.5 k/uL (3.8-10.6)
[2023-10-05 06:36] LABS: Glucose,Whole Blood 92 mg/dL (70-110)
[2023-10-05 06:52] LABS: African American GFR (CKD) 16 (>60 ml/min/1.73 sqM); Anion Gap 11 mmol/L; Blood Urea Nitrogen 67 mg/dL (9-20); Calcium 8.8 mg/dL (8.4-10.2); Carbon Dioxide 26 mmol/L (22-30); Chloride 93 mmol/L (98-107); Glucose 94 mg/dL (74-99); Non-African American GFR(CKD) 14 (>60 ml/min/1.73 sqM); Potassium 4.3 mmol/L (3.5-5.1); Sodium 130 mmol/L (137-145)
--- NOTE | 2023-10-05 07:37 | P.PN ---
Subjective Progress Note Date: 10/04/23 Principal diagnosis: Reason for follow-up is pneumonia and sepsis Patient is a 58-year-old male with a past medical history significant for hypertension [place] current everyday smoker presenting to the hospital for evaluation of increasing shortness of breath patient got intubated because of worsening respiratory status was noted to be septic secondary to pneumonia with evidence of right middle lobe infiltrate and urine for Legionella antigen came back positive. On today's evaluation that is 10/04/2023,the patient denies any fever or any chills, patient is breathing comfortably on room air, the patient denies chest pain shortness of breath and no significant cough, patient denies abdominal pain, no nausea vomiting or diarrhea. Patient has developed a rash to the trunk however denies having any itching or wheezing. Patient white count is down to 12.6 creatinine 3.63 Objective - Vital Signs Vital signs: Vital Signs Temp 98.9 F 10/04/23 08:00 Pulse 101 H 10/04/23 11:08 Resp 16 10/04/23 08:00 BP 126/73 10/04/23 08:00 Pulse Ox 95 10/04/23 08:00 FiO2 40 10/01/23 10:33 Intake & Output 10/03/23 10/04/23 10/04/23 18:59 06:59 18:59 Intake Total 940 340 270 Output Total 4200 1005 325 Balance -3260 -665 -55 Weight 91.7 kg 83 kg Intake: IV 320 340 70 0.9 NS 220 240 20 Levofloxacin 500Mg-D5w 100 Pmx 500 mg In Dextrose/ Water 1 100ml.bag @ 100 mls/hr IVPB Q48H [facility] Rx#: [id number] cefTRIAXone 2 gm In 50 50 Sodium Chloride 0.9% 50 ml @ 100 mls/hr IVPB Q24HR [facility] Rx#:[id number] Oral 120 200 Hemodialysis 500 Output: Urine 700 1005 325 Hemodialysis 3500 Other: Voiding Method Indwelling Catheter Indwelling Catheter Indwelling Catheter # Bowel Movements 1 ABP, PAP, CO, CI - Last Documented Arterial Blood Pressure 116/95 - Exam GENERAL DESCRIPTION: Middle-age male lying in bed in no distress RESPIRATORY SYSTEM: Unlabored breathing , decreased breath sounds at bases HEART: S1 S2 regular rate and rhythm , ABDOMEN: Soft , no tenderness EXTREMITIES: Mild edema feet - Labs CBC & Chem 7: 10/05/23 05:40 10/05/23 05:40 Labs: Abnormal Lab Results - Last 24 Hours (Table) 10/03/23 10/03/23 10/03/23 Range/Units 16:20 19:46 20:17 WBC (3.8-10.6) k/uL RBC (4.30-5.90) m/uL Hgb (13.0-17.5) gm/dL Hct (39.0-53.0) % Sodium (137-145) mmol/L Chloride (98-107) mmol/L BUN (9-20) mg/dL Creatinine (0.66-1.25) mg/dL POC Glucose (mg/dL) 124 H 165 H 195 H (70-110) mg/dL Calcium (8.4-10.2) mg/dL 10/04/23 10/04/23 10/04/23 Range/Units 06:30 06:30 12:03 WBC 12.6 H (3.8-10.6) k/uL RBC 2.37 L (4.30-5.90) m/uL Hgb 7.5 L (13.0-17.5) gm/dL Hct 23.0 L (39.0-53.0) % Sodium 129 L (137-145) mmol/L Chloride 95 L (98-107) mmol/L BUN 61 H (9-20) mg/dL Creatinine 3.63 H (0.66-1.25) mg/dL POC Glucose (mg/dL) 128 H (70-110) mg/dL Calcium 8.2 L (8.4-10.2) mg/dL Assessment and Plan (1) Legionella pneumonia Current Visit: Yes Status: Acute Code(s): A48.1 - LEGIONNAIRES' DISEASE S NOMED Code(s): 980326326 (2) Bacteremia Current Visit: Yes Status: Acute Code(s): R78.81 - BACTEREMIA SNOMED Code(s): 5920530 (3) Pneumonia Current Visit: Yes Status: Acute Code(s): J18.9 - PNEUMONIA, UNSPECIFIED ORGANISM SNOMED Code(s): 410413485 (4) Leukocytosis Current Visit: Yes Status: Acute Code(s): D72.829 - ELEVATED WHITE BLOOD CELL COUNT, UNSPECIFIED SNOMED Code(s): 125635815 Plan: 1patient presented hospital with sepsis in this patient who did have fever tachycardia elevated white count, in this patient with evidence of pneumonia and urine tested positive for Legionella antigen more likely etiology of the sepsis and pneumonia 2 patient did have a positive blood culture with a strep species which has been finalized as strep viridans, the patient repeat blood cultures are pending, patient treated with the Rocephin 2 g daily 3-patient has received about 2-week course of IV Levaquin for underlying Legionella pneumonia should be enough and patient Levaquin was discontinued as of 10/03/2023 4-leukocytosis more likely steroid related, the patient white count is trending down 5-patient has developed a rash to the trunk more likely drug rash possible related to Rocephin we will discontinue Rocephin and see response Dictation was produced using [employer] dictation software. please excuse any grammatical, word or spelling errors. Time with Patient: Less than 30
--- NOTE | 2023-10-05 10:17 | P.PN ---
Subjective Progress Note Date: 10/05/23 The patient is seen today October 03, 2023 in follow-up in the intensive care unit. He had originally been admitted for acute hypoxic respiratory failure secondary to Legionella pneumonia. He required intubation and mechanical ventilatory support from 09/19/23 through October 01, 2023. He is currently sitting up in bed. Awake and alert in no acute distress. He is now maintaining good O2 saturations in the 90s on 2 L/min per nasal cannula. He is continued on ceftriaxone and Levaquin. Revealed no growth. Bronchial wash cultures from 09/20/2023 revealed Farzana. On 8.0. Platelets 415. Sodium 128. Potassium 4.0. Bicarb 24. BUN 106. Creatinine 5.05. Glucose 101. He is continued on DuoNeb ventilations, Perforomist inhalations, Solu-Medrol. He remains on 80 mg of IV Lasix daily. Heparin for DVT prophylaxis. Currently in a -1.9 L balance. Plan is for hemodialysis today. Plan will be for insertion of a permanent dialysis catheter. The patient is seen today October 04, 2023 in follow-up in the intensive care unit. He is currently sitting up in bed. Awake and alert in no acute distress. He is currently maintaining good O2 saturations in the 90s on 2 L/min per nasal cannula. He is afebrile. White count 12.6. Hemoglobin 7.5. Platelets 348. Sodium 129. Potassium 3.9. Bicarb 26. BUN 61. Creatinine 3.63. Chest x-ray post left PICC line and placement revealed bilateral streaky a telectasis/scarring. No pleural effusion, consolidation or pneumothorax. Follow-up blood cultures revealed no growth. He is continued on ceftriaxone. Remains on bronchodilators Solu-Medrol. Oral diuretics. Heparin for DVT prophylaxis. The patient is seen today October 05, 2023 in follow-up in the intensive care unit. He is awake and alert in no acute distress. Sitting up in bed. Maintaining good O2 saturations in the 90s on room air. No IV fluids. He is receiving hemodialysis today with a goal of 2 L of fluid to be removed. He remains on Lasix 80 mg IV daily. Continued on bronchodilators. Transitioned to prednisone taper. Heparin for DVT prophylaxis. White count 13.5. Hemoglobin 8.5. Platelets 401. Odium 130. Potassium 4.3. Bicarb 26. BUN 67. Creatinine 4.35. He completed antibiotics. Objective - Vital Signs Vital signs: Vital Signs Temp 98.9 F 10/05/23 08:00 Pulse 111 H 10/05/23 08:00 Resp 16 10/05/23 08:00 BP 151/88 10/05/23 08:00 Pulse Ox 98 10/05/23 08:00 FiO2 40 10/01/23 10:33 Intake & Output 10/04/23 10/05/23 10/05/23 18:59 06:59 18:59 Intake Total 870 300 Output Total 725 600 Balance 145 -300 Weight 82.6 kg Intake: IV 70 0.9 NS 20 cefTRIAXone 2 gm In 50 Sodium Chloride 0.9% 50 ml @ 100 mls/hr IVPB Q24HR [facility] Rx#:[id number] Oral 800 300 Output: Urine 725 600 Other: Voiding Method Indwelling Catheter Urinal # Bowel Movements 1 ABP, PAP, CO, CI - Last Documented Arterial Blood Pressure 116/95 - Exam GENERAL EXAM: Alert, 58-year-old male patient, on room air, up in a chair, in no distress. HEAD: Normocephalic. EYES: Normal reaction of pupils, equal size. NOSE: Clear with pink turbinates. THROAT: No erythema or exudates. NECK: No masses, no JVD. CHEST: No chest wall deformity. LUNGS: Equal air entry with bilateral scattered rhonchi. CVS: S1 and S2 normal with no audible murmur, regular rhythm. ABDOMEN: No hepatosplenomegaly, normal bowel sounds, no guarding or rigidity. SPINE: No scoliosis or deformity SKIN: No rashes CENTRAL NERVOUS SYSTEM: No focal deficits, tone is normal in all 4 extremities. EXTREMITIES: There is 1+ peripheral edema. No clubbing, no cyanosis. Peripheral pulses are intact. - Labs CBC & Chem 7: 10/05/23 05:40 10/05/23 05:40 Labs: Abnormal Lab Results - Last 24 Hours (Table) 10/04/23 10/04/23 10/04/23 Range/Units 12:03 16:37 21:11 WBC (3.8-10.6) k/uL RBC (4.30-5.90) m/uL Hgb (13.0-17.5) gm/dL Hct (39.0-53.0) % Sodium (137-145) mmol/L Chloride (98-107) mmol/L BUN (9-20) mg/dL Creatinine (0.66-1.25) mg/dL POC Glucose (mg/dL) 128 H 121 H 149 H (70-110) mg/dL 10/05/23 10/05/23 Range/Units 05:40 05:40 WBC 13.5 H (3.8-10.6) k/uL RBC 2.70 L (4.30-5.90) m/uL Hgb 8.5 L (13.0-17.5) gm/dL Hct 26.6 L (39.0-53.0) % Sodium 130 L (137-145) mmol/L Chloride 93 L (98-107) mmol/L BUN 67 H (9-20) mg/dL Creatinine 4.35 H (0.66-1.25) mg/dL POC Glucose (mg/dL) (70-110) mg/dL Microbiology - Last 24 Hours (Table) 09/22/23 23:00 Legionella Culture - Final Sputum Legionella pneumophila Assessment and Plan Assessment: Acute hypoxic respiratory failure secondary to multilobar pneumonia secondary to Legionella pneumonia patient was intubated on 09/18, underwent bronchoscopy and lavage, urine Legionella antigen is positive, completed Rocephin. Extubated on 10/01/2023. Septic shock, resolved Acute exacerbation of COPD, patient is on bronchodilators. Pulmonary status is gradually improving, still on bronchodilators and steroids, on room air Acute kidney injury secondary to above/secondary to acute tubular necrosis and severe dehydration and sepsis on his initial presentation now on hemodialysis Acute transaminitis secondary to sepsis Benign essential hypertension Dyslipidemia Coronary artery disease [id number] smoking history Bacteremia with Streptococcus viridans group D, being addressed by infectious disease on the case. Repeat cultures are negative so far from 09/24/2023 Plan: The patient was seen and evaluated Labs and medications reviewed Continued on bronchodilators, prednisone taper Being stable and on room air Awaiting a bed on the regular medical floor I have personally seen and examined the patient, performed the documentation and the assessment and plan as written. Number of minutes spent on the visit: 10.
[2023-10-05 11:22] LABS: Glucose,Whole Blood 86 mg/dL (70-110)
--- NOTE | 2023-10-05 12:25 | P.PN ---
Subjective Progress Note Date: 10/05/23 Patient is a 58-year-old male with known hypertension, dyslipidemia, and coronary artery disease who presented with shortness of breath. On arrival to the ER vitals were remarkable for temperature of 103.3, pulse 131, and O2 sat 88% on room air. Laboratory analysis was remarkable for white blood cell count 21.1, sodium 122, bicarb 18, anion gap 20, and creatinine of 5.94. He was also noted to have a lactic acid of 3.9, magnesium 0.9, total bilirubin 1.8, AST 110, ALT 53, and troponin of 0.102. Influenza A/B/RSV/COVID-19 testing was negative. Chest x-ray demonstrated pneumonia in the right lower lobe greater than the left. He underwent a pelvic x-ray which showed no acute process. Head CT showed no acute process. He was admitted for further monitoring. Nephrology, pulmonology, and cardiology were consulted. Patient's respiratory status worsened despite being on broad-spectrum antibiotics and he ultimately required intubation and vasopressor support. His troponin elevated mildly, he underwent echocardiogram which showed an ejection of 50 to 55% with no regional wall motio n abnormalities and cardiology felt this was likely a type II non-STEMI. His renal function did not improve and he ultimately underwent hemodialysis on 09/19. Bronchoscopy with lavage noted significant purulence in the right lower lobe. Patient's Legionella urine antigen came back positive. He was subsequently transition to Levaquin on 09/19. Prior to that patient did receive 3 days of Zithromax. Nimbex, vasopressin and Levophed were able to be weaned off by 09/20. He continued to be agitated on fentanyl and propofol as well as tachycardic. He continued to require hemodialysis. Patient had blood cultures positive for strep viridans on 09/17 and was therefore continued on Rocephin after Levaquin was completed. Patient remained agitated on maximal doses of fentanyl and propofol therefore he was started on Ativan for CIWA protocol. He was then transitioned to dexmedetomidine. He was successfully extubated on 09/30. He had a right jugular hemodialysis catheter placed on 514 by vascular surgery. Nephrology is recommending continued dialysis on Tuesday. Patient seen and examined at bedside. He is currently on HD. He is feeling well. Denies any chest pain, shortness of breath, nausea, vomiting, diarrhea. He is still very weak. Vital signs reviewed General: Nontoxic, no distress, appears at stated age Cardiovascular: S1S2 reg, no murmur Lungs: CTA bilateral, no rhonchi, no rales, no accessory muscle use Abdominal: Soft, nontender to palpation, no guarding Ext: No gross muscle atrophy, no edema b/l lower extremities, no contractures Neuro: CN II-XI grossly intact, no focal neuro deficits Psych: Alert, oriented, appropriate affect Assessment/Plan: Legionella pneumonia with septic shock, improved Acute hypoxic respiratory failure Acute exacerbation of COPD Strep viridans bacteremia, felt likely to be contaminant Critical illness myopathy -DuoNebs 4 times daily and every 2 hours as needed, piriformis 20 mcg twice daily -Prednisone 40 mg daily -Pulmonary note reviewed: Continue with hemodialysis, awaiting bed on regular medical floor. Prednisone taper. -Infectious disease note reviewed from 10/03: Patient received 2-week course of Levaquin Acute kidney injury secondary to ATN from septic shock Hypervolemic hyponatremia Anemia Hyperphosphatemia -Aranesp 40 mcg every 7 days, PhosLo 667 mg with each meal -Lasix 80 mg IV daily -Nephrology note reviewed: Continue with Lasix and monitoring of renal function Type II non-STEMI History of coronary artery disease Hypertension -Lipitor 80 mg at night, Plavix 75 mg daily -Hydralazine 50 mg 3 times daily -Metoprolol 25 mg twice daily Transaminitis, resolved Right hepatic lobe lesion 2.5 x 3.1 x 2.3 cm- outpatient follow-up Resolved: Possible EtOH withdrawal Hyponatremia Hypocalcemia Metabolic acidosis Imaging: None new Data Review: -Labs reviewed from today include CBC and basic metabolic profile which are remarkable for white blood cell count 13.5, hemoglobin 8.5, sodium 130. DVT prophylaxis: Heparin Anticipated discharge date: Awaiting auth Anticipated discharge place: Awaiting auth This dictation was prepared using [employer] voice recognition software. Though every attempt is made to correct errors during dictation some may still exist. Objective - Vital Signs Vital signs: Vital Signs Temp 98.4 F 10/05/23 02:00 Pulse 103 H 10/05/23 02:00 Resp 15 10/05/23 02:00 BP 143/86 10/05/23 02:00 Pulse Ox 93 L 10/05/23 02:00 FiO2 40 10/01/23 10:33 Intake & Output 10/04/23 10/05/23 10/05/23 18:59 06:59 18:59 Intake Total 870 300 Output Total 725 600 Balance 145 -300 Weight 82.6 kg Intake: IV 70 0.9 NS 20 cefTRIAXone 2 gm In 50 Sodium Chloride 0.9% 50 ml @ 100 mls/hr IVPB Q24HR [facility] Rx#:[id number] Oral 800 300 Output: Urine 725 600 Other: Voiding Method Indwelling Catheter Urinal # Bowel Movements 1 ABP, PAP, CO, CI - Last Documented Arterial Blood Pressure 116/95 - Labs CBC & Chem 7: 10/05/23 05:40 10/05/23 05:40 Labs: Abnormal Lab Results - Last 24 Hours (Table) 10/04/23 10/04/23 10/04/23 Range/Units 06:30 12:03 16:37 WBC (3.8-10.6) k/uL RBC (4.30-5.90) m/uL Hgb (13.0-17.5) gm/dL Hct (39.0-53.0) % Sodium 129 L (137-145) mmol/L Chloride 95 L (98-107) mmol/L BUN 61 H (9-20) mg/dL Creatinine 3.63 H (0.66-1.25) mg/dL POC Glucose (mg/dL) 128 H 121 H (70-110) mg/dL Calcium 8.2 L (8.4-10.2) mg/dL 10/04/23 10/05/23 10/05/23 Range/Units 21:11 05:40 05:40 WBC 13.5 H (3.8-10.6) k/uL RBC 2.70 L (4.30-5.90) m/uL Hgb 8.5 L (13.0-17.5) gm/dL Hct 26.6 L (39.0-53.0) % Sodium 130 L (137-145) mmol/L Chloride 93 L (98-107) mmol/L BUN 67 H (9-20) mg/dL Creatinine 4.35 H (0.66-1.25) mg/dL POC Glucose (mg/dL) 149 H (70-110) mg/dL Calcium (8.4-10.2) mg/dL Microbiology - Last 24 Hours (Table) 09/22/23 23:00 Legionella Culture - Final Sputum Legionella pneumophila
--- NOTE | 2023-10-05 14:27 | P.CONS ---
History of Present Illness - Reason for Consult Consult date: 10/05/23 - Chief Complaint weakness, SOB - History of Present Illness IPR Consult Mr. Manning is a 58 yo He has a past medical history of hypertension, dyslipidemia, coronary artery disease presenting with shortness of breath. He claims that he started feeling sick about 4 days ago when he noticed increased weakness, and some lightheadedness, had minimal shortness of breath, some productive sputum. He denies any significant fevers or chills. He waited for 4 days trying to avoid hospital, and then today because he was feeling a lot worse he decided come to the hospital. He denies any sick contacts or travel history. He denies any abdominal pain, but does have some nausea, no diarrhea or constipation, no urinary complaints. In the ED, temperature was 103.3, pulse 131, respiratory rate 30, blood pressure 118/86, saturating 88% on room air. WBC 21.2, hemoglobin 13, pH 7.41, pCO2 33, sodium 122, potassium 3.4, bicarb 18, anion gap 20, creatinine 5.94, lactic acid 3.9, magnesium 0.9, total bili 1.8, AST 110, ALT 53, ALP 105, troponin 0.102. Respiratory viral panel negative. Chest x-ray shows multifocal pneumonia right lower lobe greater than left. EKG shows sinus tachycardia with right bundle you block. Pelvic x-ray shows no acute process. Head CT shows no acute p rocess. October 03, 2023 in follow-up in the intensive care unit. He had originally been admitted for acute hypoxic respiratory failure secondary to Legionella pneumonia. He required intubation and mechanical ventilatory support from 09/19/23 through October 01, 2023. He is currently sitting up in bed. Awake and alert in no acute distress. He is now maintaining good O2 saturations in the 90s on 2 L/min per nasal cannula. He is continued on ceftriaxone and Levaquin. Revealed no growth. Bronchial wash cultures from 09/20/2023 revealed Farzana. On 8.0. Platelets 415. Sodium 128. Potassium 4.0. Bicarb 24. BUN 106. Creatinine 5.05. Glucose 101. He is continued on DuoNeb ventilations, Perf oromist inhalations, Solu-Medrol. He remains on 80 mg of IV Lasix daily. Heparin for DVT prophylaxis. Currently in a -1.9 L balance. Plan is for hemodialysis today. Plan will be for insertion of a permanent dialysis catheter. October 04, 2023 in follow-up in the intensive care unit. He is currently sitting up in bed. Awake and alert in no acute distress. He is currently maintaining good O2 saturations in the 90s on 2 L/min per nasal cannula. He is afebrile. White count 12.6. Hemoglobin 7.5. Platelets 348. Sodium 129. Potassium 3.9. Bicarb 26. BUN 61. Creatinine 3.63. Chest x-ray post left PICC line and placement revealed bilateral streaky atelectasis/scarring. No pleural effusion, consolidation or pneumothorax. Follow-up blood cultures revealed no growth. He is continued on ceftriaxone. Remains on bronchodilators Solu-Medrol. Oral diuretics. Heparin for DVT prophylaxis. October 05, 2023 in follow-up in the intensive care unit. He is awake and alert in no acute distress. Sitting up in bed. Maintaining good O2 saturations in the 90s on room air. No IV fluids. He is receiving hemodialysis today with a goal of 2 L of fluid to be removed. He remains on Lasix 80 mg IV daily. Continued on bronchodilators. Transitioned to prednisone taper. Heparin for DVT proph ylaxis. White count 13.5. Hemoglobin 8.5. Platelets 401. Odium 130. Potassium 4.3. Bicarb 26. BUN 67. Creatinine 4.35. He completed antibiotics. PMR consulted for rehab needs 10/05/23. Notes feeling surprisingly good, but is weak. Denies GRIFFIN, SOB, CP, abdominal pain or other pain c/o. With therapies was max A x2 for bed mobility, transfers. 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, medical mangement Last Myocardial Infarction Date:: 03/2023 History of Any Multi-Drug Resistant Organisms: None Reported Past Surgical History: Appendectomy, Cholecystectomy, Heart Catheterization, Hernia Repair Additional Past Surgical History / Comment(s): knee surgery, shoulder surgery Past Anesthesia/Blood Transfusion Reactions: No Reported Reaction Past Psychological History: No Psychological Hx Reported Smoking Status: Current every day smoker Past Alcohol Use History: Occasional Past Drug Use History: None Reported - Past Family History Mother Additional Family Medical History / Comment(s): alcoholism Father Family Medical History: Dementia Medications and Allergies Home Medications Medication Instructions Recorded Confirmed Type Albuterol Inhaler [Ventolin Hfa 2 puff INHALATION RT-Q4H PRN 03/24/23 09/18/23 History Inhaler] Atorvastatin [Lipitor] 80 mg PO DAILY #30 tab 03/27/23 09/18/23 Rx Clopidogrel [Plavix] 75 mg PO DAILY #30 tab 03/27/23 09/18/23 Rx Metoprolol Tartrate [Lopressor] 25 mg PO BID #60 tab 03/27/23 09/18/23 Rx Nitroglycerin Sl Tabs [Nitrostat] 0.4 mg SUBLINGUAL Q5M PRN #20 tab 03/27/23 09/18/23 Rx Lisinopril-Hctz 10-12.5 mg 1 tab PO DAILY 09/18/23 09/18/23 History [Zestoretic 10-12.5] Omeprazole [PriLOSEC] 40 mg PO DAILY 09/18/23 09/18/23 History Allergies Allergy/AdvReac Type Severity Reaction Status Date / Time aspirin AdvReac Abdominal Verified 09/18/23 14:54 Pain & Chest Pain ibuprofen [From Motrin] AdvReac Abdominal Verified 09/18/23 14:54 Pain & Chest Pain Physical Exam Vitals: Vital Signs Temp Pulse Pulse Pulse Pulse Resp BP 10/05/23 13:56 97.7 F 101 H 16 121/86 10/05/23 08:00 98.9 F 111 H 16 151/88 10/05/23 02:00 98.4 F 103 H 15 143/86 10/04/23 20:29 98 10/04/23 20:20 96 10/04/23 20:19 96 10/04/23 20:10 96 10/04/23 20:00 98.9 F 106 H 16 133/93 10/04/23 15:22 98 10/04/23 15:08 100 Pulse Ox 10/05/23 13:56 10/05/23 08:00 98 10/05/23 02:00 93 L 10/04/23 20:29 10/04/23 20:20 10/04/23 20:19 10/04/23 20:10 10/04/23 20:00 95 10/04/23 15:22 10/04/23 15:08 Intake and Output 10/04/23 10/05/23 10/05/23 22:59 06:59 14:59 Intake Total 600 300 500 Output Total 978 [id number] Balance 200 -300 -2000 Intake: Oral 600 300 Hemodialysis 500 Output: Urine 400 600 Hemodialysis 2500 Other: Voiding Method Urinal Urinal Weight 82.6 kg GENERAL: NAD, alert pleasant HEAD: Normocephalic. EYES: Normal reaction of pupils, equal size. NECK: Supple CV: Regular rate LUNGS: Non-labored respirations ABDOMEN: soft nt/nd SKIN: No rashes NEURO: Alert and oriented x4 Speech fluent. Follows 3 step commands MMT 3-4/5 right UE, 4/5 left UE; <3 bilateral HF, >3 KE, 4/5 DF Sensation light touch intact UE/LE DTR symmetric 1-2+ UE/LE Finger to nose with slight dysmetria on right. EXTREMITIES: There is 1+ peripheral edema. No calf TTP, negative Nahomy Results CBC & Chem 7: 10/05/23 05:40 10/05/23 05:40 Labs: Abnormal Lab Results - Last 24 Hours (Table) 10/04/23 10/04/23 10/05/23 Range/Units 16:37 21:11 05:40 WBC 13.5 H (3.8-10.6) k/uL RBC 2.70 L (4.30-5.90) m/uL Hgb 8.5 L (13.0-17.5) gm/dL Hct 26.6 L (39.0-53.0) % Sodium (137-145) mmol/L Chloride (98-107) mmol/L BUN (9-20) mg/dL Creatinine (0.66-1.25) mg/dL POC Glucose (mg/dL) 121 H 149 H (70-110) mg/dL 10/05/23 Range/Units 05:40 WBC (3.8-10.6) k/uL RBC (4.30-5.90) m/uL Hgb (13.0-17.5) gm/dL Hct (39.0-53.0) % Sodium 130 L (137-145) mmol/L Chloride 93 L (98-107) mmol/L BUN 67 H (9-20) mg/dL Creatinine 4.35 H (0.66-1.25) mg/dL POC Glucose (mg/dL) (70-110) mg/dL Microbiology - Last 24 Hours (Table) 09/22/23 23:00 Legionella Culture - Final Sputum Legionella pneumophila Assessment and Plan Assessment: # Critical Illness Myopathy # Acute hypoxic respiratory failure secondary to multilobar pneumonia secondary to Legionella pneumonia patient was intubated on 09/18, underwent bronchoscopy and lavage, urine Legionella antigen is positive, completed Rocephin. Extubated on 10/01/2023. -Continued on bronchodilators, prednisone taper # Septic shock, resolved # Acute exacerbation of COPD, patient is on bronchodilators. Pulmonary status is gradually improving, still on bronchodilators and steroids, on room air # Acute kidney injury secondary to above/secondary to acute tubular necrosis and severe dehydration and sepsis on his initial presentation now on hemodialysis #Acute transaminitis secondary to sepsis #Benign essential hypertension # Dyslipidemia # Coronary artery disease # [id number] smoking history # Bacteremia with Streptococcus viridans group D, being addressed by infectious disease on the case. Repeat cultures are negative so far from 09/24/2023 Recommendations: - per your medical management - continue PT/OT Appropriate for IPR when medically stable, pending insurance approval.
[2023-10-05 17:02] LABS: Glucose,Whole Blood 106 mg/dL (70-110)
--- NOTE | 2023-10-05 19:15 | P.PN ---
Subjective patient is seen for follow-up for acute kidney injury. patient is awake and comfortable. Urine output at 80-100 ML per hour. Patient is seen on hemodialysis. Tolerating treatment well. No significant complaints today. Objective - Vital Signs Vital signs: Vital Signs Temp 99.5 F 10/05/23 17:00 Pulse 83 10/05/23 17:00 Resp 16 10/05/23 17:00 BP 103/64 10/05/23 17:00 Pulse Ox 97 10/05/23 17:00 FiO2 40 10/01/23 10:33 Intake & Output 10/05/23 10/05/23 10/06/23 06:59 18:59 06:59 Intake Total 300 500 Output Total 600 2500 Balance -300 -2000 Weight 82.6 kg Intake: Oral 300 Hemodialysis 500 Output: Urine 600 Hemodialysis 2500 Other: Voiding Method Urinal Urinal # Voids 0 ABP, PAP, CO, CI - Last Documented Arterial Blood Pressure 116/95 - Exam patient is awake and comfortable No acute distress Examination of the heart S1 and S2 Examination the lungs bilateral breath sounds are heard Abdomen is soft Examination of lower extremities shows 1+ edema bilaterally CUFF RUNNER exam is grossly intact. - Labs CBC & Chem 7: 10/05/23 05:40 10/05/23 05:40 Labs: Abnormal Lab Results - Last 24 Hours (Table) 10/04/23 10/05/23 10/05/23 Range/Units 21:11 05:40 05:40 WBC 13.5 H (3.8-10.6) k/uL RBC 2.70 L (4.30-5.90) m/uL Hgb 8.5 L (13.0-17.5) gm/dL Hct 26.6 L (39.0-53.0) % Sodium 130 L (137-145) mmol/L Chloride 93 L (98-107) mmol/L BUN 67 H (9-20) mg/dL Creatinine 4.35 H (0.66-1.25) mg/dL POC Glucose (mg/dL) 149 H (70-110) mg/dL Microbiology - Last 24 Hours (Table) 09/22/23 23:00 Legionella Culture - Final Sputum Legionella pneumophila Assessment and Plan Assessment: 1. Acute kidney injury, ATN. Secondary to hypotension and underlying infectio n. Nonoliguric. Serologies are negative except for positive ROE. Currently with indwelling Barnes catheter. Ultrasound shows no evidence of obstruction. UA shows 1+ protein and moderate blood WBCs 16. Started on hemodialysis on 09/20/2023. Good urine output but serum creatinine remains around 5. We will continue with hemodialysis and continue to monitor for recovery of renal function. 2. Community-acquired bilateral pneumonia maintained on vancomycin, cefepime and azithromycinurine legionnaire antigen positive 3. Acute hypoxic respiratory failure, status post extubation 4. Anion gap metabolic acidosis associated with acute kidney injury. 5. Hypokalemia 6. Hyponatremia,hypervolemic. Improved with dialysis 7. Volume overload Plan: continue to monitor for recovery of renal function. continue with IV Lasix. Continue with hemodialysis on Tuesday schedule.
[2023-10-05 22:20] LABS: Glucose,Whole Blood 128 mg/dL (70-110)
[2023-10-06 05:37] LABS: Glucose,Whole Blood 103 mg/dL (70-110)
[2023-10-06 08:43] LABS: MCHC 33.3 g/dL (32.0-37.0); Mean Platelet Volume 9.9 FL (9.5-12.2); NRBC Per 100 WBC 0 X 10*3/uL (0.00-0.01); Platelet Count 297 X 10*3/uL (140-440); RDW 14.3 % (11.5-14.5); WBC 12.22 X 10*3/uL (4.50-10.00)
[2023-10-06 09:14] LABS: ALT 46 U/L (10-49); AST 21 U/L (14-35); Albumin 3.4 g/dL (3.8-4.9); Albumin/Globulin Ratio 1.62 Ratio (1.60-3.17); Alkaline Phosphatase 102 U/L (41-126); Blood Urea Nitrogen 34.5 mg/dL (9.0-27.0); Calcium 8.9 mg/dL (8.7-10.3); Carbon Dioxide 24.8 mmol/L (21.6-31.8); Chloride 94 mmol/L (96-109); Globulin 2.1 g/dL (1.6-3.3); Glucose 91 mg/dL (70-110); Potassium 4.1 mmol/L (3.5-5.5); Sodium 132 mmol/L (135-145); Total Bilirubin 0.6 mg/dL (0.3-1.2); Total Protein 5.5 g/dL (6.2-8.2)
--- NOTE | 2023-10-06 10:53 | P.PN ---
Subjective patient is seen for follow-up for acute kidney injury. patient is awake and comfortable. good urine output. No significant complaints today. Patient is transferred out of the ICU. scheduled for hemodialysis in a.m. Objective - Vital Signs Vital signs: Vital Signs Temp 98.4 F 10/06/23 07:18 Pulse 98 10/06/23 09:14 Resp 17 10/06/23 07:18 BP 134/77 10/06/23 07:18 Pulse Ox 94 L 10/06/23 08:26 FiO2 40 10/01/23 10:33 Intake & Output 10/05/23 10/06/23 10/06/23 18:59 06:59 18:59 Intake Total 500 Output Total 2500 300 Balance -1999 -300 Weight 84.5 kg Intake: Hemodialysis 500 Output: Urine 300 Hemodialysis 2500 Other: Voiding Method Urinal Urinal # Voids 0 ABP, PAP, CO, CI - Last Documented Arterial Blood Pressure 116/95 - Exam patient is awake and comfortable No acute distress Examination of the heart S1 and S2 Examination the lungs bilateral breath sounds are heard Abdomen is soft Examination of lower extremities shows 2+ edema bilaterally SLOT MANAGER exam is grossly intact. - Labs CBC & Chem 7: 10/06/23 06:04 10/06/23 06:04 Labs: Abnormal Lab Results - Last 24 Hours (Table) 10/05/23 10/06/23 10/06/23 Range/Units 22:19 06:04 06:04 WBC 12.22 H (4.50-10.00) X 10*3/uL RBC 2.50 L (4.40-5.60) X 10*6/uL Hgb 8.0 L (13.0-17.0) g/dL Hct 24.0 L (39.6-50.0) % Sodium 132 L (135-145) mmol/L Chloride 94 L (96-109) mmol/L Anion Gap 13.20 H (4.00-12.00) mmol/L BUN 34.5 H (9.0-27.0) mg/dL Creatinine 3.0 H (0.6-1.5) mg/dL Est GFR (CKD-EPI) 23 L (>=60) BUN/Creatinine Ratio 11.50 L (12.00-20.00) Ratio POC Glucose (mg/dL) 128 H (70-110) mg/dL Total Protein 5.5 L (6.2-8.2) g/dL Albumin 3.4 L (3.8-4.9) g/dL Microbiology - Last 24 Hours (Table) 09/22/23 23:00 Legionella Culture - Final Sputum Legionella pneumophila Assessment and Plan Assessment: 1. Acute kidney injury, ATN. Secondary to hypotension and underlying infection. Nonoliguric. Serologies are negative except for positive ROE. Currently with indwelling Barnes catheter. Ultrasound shows no evidence of obstruction. UA shows 1+ protein and moderate blood WBCs 16. Started on hemodialysis on 09/20/2023. Good urine output but serum creatinine remains around 5. We will continue with hemodialysis and continue to monitor for recovery of renal function. 2. Community-acquired bilateral pneumonia maintained on vancomycin, cefepime and azithromycinurine legionnaire antigen positive 3. Acute hypoxic respiratory failure, status post extubation 4. Anion gap metabolic acidosis associated with acute kidney injury. 5. Hypokalemia 6. Hyponatremia,hypervolemic. Improved with dialysis 7. Volume overload Plan: continue to monitor for recovery of renal function. continue with IV Lasix. Continue with hemodialysis on Tuesday schedule.
--- NOTE | 2023-10-06 11:07 | P.PN ---
Subjective Progress Note Date: 10/06/23 The patient is seen today October 03, 2023 in follow-up in the intensive care unit. He had originally been admitted for acute hypoxic respiratory failure secondary to Legionella pneumonia. He required intubation and mechanical ventilatory support from 09/19/23 through October 01, 2023. He is currently sitting up in bed. Awake and alert in no acute distress. He is now maintaining good O2 saturations in the 90s on 2 L/min per nasal cannula. He is continued on ceftriaxone and Levaquin. Revealed no growth. Bronchial wash cultures from 09/20/2023 revealed Farzana. On 8.0. Platelets 415. Sodium 128. Potassium 4.0. Bicarb 24. BUN 106. Creatinine 5.05. Glucose 101. He is continued on DuoNeb ventilations, Perforomist inhalations, Solu-Medrol. He remains on 80 mg of IV Lasix daily. Heparin for DVT prophylaxis. Currently in a -1.9 L balance. Plan is for hemodialysis today. Plan will be for insertion of a permanent dialysis catheter. The patient is seen today October 04, 2023 in follow-up in the intensive care unit. He is currently sitting up in bed. Awake and alert in no acute distress. He is currently maintaining good O2 saturations in the 90s on 2 L/min per nasal cannula. He is afebrile. White count 12.6. Hemoglobin 7.5. Platelets 348. Sodium 129. Potassium 3.9. Bicarb 26. BUN 61. Creatinine 3.63. Chest x-ray post left PICC line and placement revealed bilateral streaky a telectasis/scarring. No pleural effusion, consolidation or pneumothorax. Follow-up blood cultures revealed no growth. He is continued on ceftriaxone. Remains on bronchodilators Solu-Medrol. Oral diuretics. Heparin for DVT prophylaxis. The patient is seen today October 05, 2023 in follow-up in the intensive care unit. He is awake and alert in no acute distress. Sitting up in bed. Maintaining good O2 saturations in the 90s on room air. No IV fluids. He is receiving hemodialysis today with a goal of 2 L of fluid to be removed. He remains on Lasix 80 mg IV daily. Continued on bronchodilators. Transitioned to prednisone taper. Heparin for DVT prophylaxis. White count 13.5. Hemoglobin 8.5. Platelets 401. Odium 130. Potassium 4.3. Bicarb 26. BUN 67. Creatinine 4.35. He completed antibiotics. Patient is seen today October 06, 2023 in follow-up on the regular medical floor. He was transferred out of the intensive care unit. He is sitting up in a chair at the bedside. He is doing very well. He denies any shortness of breath, cough or congestion. He is maintaining O2 saturations in the 90s on room air. No IV fluids. He is maintained on IV diuretics. He is on a Tuesday hemodialysis schedule. Follow-up blood cultures revealed no growth. White count 12.2. Hemoglobin 8.0. Platelets 297. Sodium 132. Potassium 4.1. Bicarb 25. BUN 36. Creatinine 3.0. He remains on bronchodilators. Continued on a prednisone taper. Heparin for DVT prophylaxis. Objective - Vital Signs Vital signs: Vital Signs Temp 98.4 F 10/06/23 07:18 Pulse 98 10/06/23 09:14 Resp 17 10/06/23 07:18 BP 134/77 10/06/23 07:18 Pulse Ox 94 L 10/06/23 08:26 FiO2 40 10/01/23 10:33 Intake & Output 10/05/23 10/06/23 10/06/23 18:59 06:59 18:59 Intake Total 500 Output Total 2500 300 Balance -2000 -300 Weight 84.5 kg Intake: Hemodialysis 500 Output: Urine 300 Hemodialysis 2500 Other: Voiding Method Urinal Urinal # Voids 0 ABP, PAP, CO, CI - Last Documented Arterial Blood Pressure 116/95 - Exam GENERAL EXAM: Alert, very pleasant 58-year-old male, on room air, up in a chair, in no distress. HEAD: Normocephalic. EYES: Normal reaction of pupils, equal size. NOSE: Clear with pink turbinates. THROAT: No erythema or exudates. NECK: No masses, no JVD. CHEST: No chest wall deformity. LUNGS: Equal air entry with bilateral scattered rhonchi. CVS: S1 and S2 normal with no audible murmur, regular rhythm. ABDOMEN: No hepatosplenomegaly, normal bowel sounds, no guarding or rigidity. SPINE: No scoliosis or deformity SKIN: No rashes CENTRAL NERVOUS SYSTEM: No focal deficits, tone is normal in all 4 extremities. EXTREMITIES: There is 1+ peripheral edema. No clubbing, no cyanosis. Peripheral pulses are intact. - Labs CBC & Chem 7: 10/06/23 06:04 10/06/23 06:04 Labs: Abnormal Lab Results - Last 24 Hours (Table) 10/05/23 10/06/23 10/06/23 Range/Units 22:19 06:04 06:04 WBC 12.22 H (4.50-10.00) X 10*3/uL RBC 2.50 L (4.40-5.60) X 10*6/uL Hgb 8.0 L (13.0-17.0) g/dL Hct 24.0 L (39.6-50.0) % Sodium 132 L (135-145) mmol/L Chloride 94 L (96-109) mmol/L Anion Gap 13.20 H (4.00-12.00) mmol/L BUN 34.5 H (9.0-27.0) mg/dL Creatinine 3.0 H (0.6-1.5) mg/dL Est GFR (CKD-EPI) 23 L (>=60) BUN/Creatinine Ratio 11.50 L (12.00-20.00) Ratio POC Glucose (mg/dL) 128 H (70-110) mg/dL Total Protein 5.5 L (6.2-8.2) g/dL Albumin 3.4 L (3.8-4.9) g/dL Assessment and Plan Assessment: Acute hypoxic respiratory failure secondary to multilobar pneumonia secondary to Legionella pneumonia patient was intubated on 09/18, underwent bronchoscopy and lavage, urine Legionella antigen is positive, completed Rocephin. Extubated on 10/01/2023. Stable and on room air Septic shock, resolved Acute exacerbation of COPD, patient is on bronchodilators. Pulmonary status is gradually improving, still on bronchodilators and steroids, on room air Acute kidney injury secondary to above/secondary to acute tubular necrosis and severe dehydration and sepsis on his initial presentation now on hemodialysis Acute transaminitis secondary to sepsis Benign essential hypertension Dyslipidemia Coronary artery disease [id number] smoking history Bacteremia with Streptococcus viridans group D, being addressed by infectious disease on the case. Repeat cultures are negative so far from 09/24/2023 Plan: The patient was seen and evaluated Labs and medications reviewed Continued on bronchodilators, prednisone taper Stable and on room air Hemodialysis on Tuesday schedule Being evaluated for possible inpatient rehabilitation I have personally seen and examined the patient, performed the documentation and the assessment and plan as written. Number of minutes spent on the visit: 10.
[2023-10-06 11:27] LABS: Glucose,Whole Blood 97 mg/dL (70-110)
[2023-10-06 14:09] VITALS: BMI 25.9
--- NOTE | 2023-10-06 14:12 | P.PN ---
Subjective Progress Note Date: 10/06/23 Patient is a 58-year-old male with known hypertension, dyslipidemia, and coronary artery disease who presented with shortness of breath. On arrival to the ER vitals were remarkable for temperature of 103.3, pulse 131, and O2 sat 88% on room air. Laboratory analysis was remarkable for white blood cell count 21.1, sodium 122, bicarb 18, anion gap 20, and creatinine of 5.94. He was also noted to have a lactic acid of 3.9, magnesium 0.9, total bilirubin 1.8, AST 110, ALT 53, and troponin of 0.102. Influenza A/B/RSV/COVID-19 testing was negative. Chest x-ray demonstrated pneumonia in the right lower lobe greater than the left. He underwent a pelvic x-ray which showed no acute process. Head CT showed no acute process. He was admitted for further monitoring. Nephrology, pulmonology, and cardiology were consulted. Patient's respiratory status worsened despite being on broad-spectrum antibiotics and he ultimately required intubation and vasopressor support. His troponin elevated mildly, he underwent echocardiogram which showed an ejection of 50 to 55% with no regional wall motio n abnormalities and cardiology felt this was likely a type II non-STEMI. His renal function did not improve and he ultimately underwent hemodialysis on 09/19. Bronchoscopy with lavage noted significant purulence in the right lower lobe. Patient's Legionella urine antigen came back positive. He was subsequently transition to Levaquin on 09/19. Prior to that patient did receive 3 days of Zithromax. Nimbex, vasopressin and Levophed were able to be weaned off by 09/20. He continued to be agitated on fentanyl and propofol as well as tachycardic. He continued to require hemodialysis. Patient had blood cultures positive for strep viridans on 09/17 and was therefore continued on Rocephin after Levaquin was completed. Patient remained agitated on maximal doses of fentanyl and propofol therefore he was started on Ativan for CIWA protocol. He was then transitioned to dexmedetomidine. He was successfully extubated on 09/30. He had a right jugular hemodialysis catheter placed on 514 by vascular surgery. Nephrology is recommending continued dialysis on Tuesday. Patient seen and examined at bedside. He is feeling little bit tired and stressed. Unsure how to feel after all of this. Denies any chest pain, shortness of breath, nausea, vomiting. Vital signs reviewed General: Nontoxic, no distress, appears at stated age Cardiovascular: S1S2 reg, no murmur Lungs: CTA bilateral, no rhonchi, no rales, no accessory muscle use Abdominal: Soft, nontender to palpation, no guarding Ext: No gross muscle atrophy, no edema b/l lower extremities, no contractures Neuro: CN II-XI grossly intact, no focal neuro deficits Psych: Alert, oriented, appropriate affect Assessment/Plan: Legionella pneumonia with septic shock, improved Acute hypoxic respiratory failure Acute exacerbation of COPD Strep viridans bacteremia, felt likely to be contaminant Critical illness myopathy -DuoNebs 4 times daily and every 2 hours as needed, piriformis 20 mcg twice daily -Prednisone 40 mg daily -Pulmonary note reviewed: Continue current care plan. - Await further ID recs -PM&R consult reviewed: Appropriate for IPR when medically stable. Acute kidney injury secondary to ATN from septic shock Hypervolemic hyponatremia Anemia Hyperphosphatemia -Aranesp 40 mcg every 7 days, PhosLo 667 mg with each meal -Lasix 80 mg IV daily -Case discussed with Dr. Landeros. Plan will be for continued dialysis after discharge. They will be able to follow at inpatient rehab. Type II non-STEMI History of coronary artery disease Hypertension -Lipitor 80 mg at night, Plavix 75 mg daily -Hydralazine 50 mg 3 times daily -Metoprolol 25 mg twice daily Transaminitis, resolved Right hepatic lobe lesion 2.5 x 3.1 x 2.3 cm- outpatient follow-up Resolved: Possible EtOH withdrawal Hyponatremia Hypocalcemia Metabolic acidosis Imaging: None new Data Review: Labs reviewed from today include CBC and basic metabolic profile which are remarkable for white blood cell count 12.22 (down from 13.5), hemoglobin 8, sodium 132, creatinine 3. DVT prophylaxis: Heparin Anticipated discharge date: Awaiting auth Anticipated discharge place: IPR This dictation was prepared using [email or web address] voice recognition software. Though every attempt is made to correct errors during dictation some may still exist. Objective - Vital Signs Vital signs: Vital Signs Temp 98.7 F 10/06/23 13:56 Pulse 117 H 10/06/23 13:56 Resp 18 10/06/23 13:56 BP 122/71 10/06/23 13:56 Pulse Ox 95 10/06/23 13:56 FiO2 40 10/01/23 10:33 Intake & Output 10/05/23 10/06/23 10/06/23 18:59 06:59 18:59 Intake Total 500 240 Output Total 2500 300 Balance -1999 -300 240 Weight 84.5 kg 84.5 kg Intake: Oral 240 Hemodialysis 500 Output: Urine 300 Hemodialysis 2500 Other: Voiding Method Urinal Urinal # Voids 0 ABP, PAP, CO, CI - Last Documented Arterial Blood Pressure 116/95 - Labs CBC & Chem 7: 10/06/23 06:04 10/06/23 06:04 Labs: Abnormal Lab Results - Last 24 Hours (Table) 10/05/23 10/06/23 10/06/23 Range/Units 22:19 06:04 06:04 WBC 12.22 H (4.50-10.00) X 10*3/uL RBC 2.50 L (4.40-5.60) X 10*6/uL Hgb 8.0 L (13.0-17.0) g/dL Hct 24.0 L (39.6-50.0) % Sodium 132 L (135-145) mmol/L Chloride 94 L (96-109) mmol/L Anion Gap 13.20 H (4.00-12.00) mmol/L BUN 34.5 H (9.0-27.0) mg/dL Creatinine 3.0 H (0.6-1.5) mg/dL Est GFR (CKD-EPI) 23 L (>=60) BUN/Creatinine Ratio 11.50 L (12.00-20.00) Ratio POC Glucose (mg/dL) 128 H (70-110) mg/dL Total Protein 5.5 L (6.2-8.2) g/dL Albumin 3.4 L (3.8-4.9) g/dL
--- NOTE | 2023-10-06 15:26 | P.PN ---
Subjective Progress Note Date: 10/05/23 Principal diagnosis: Reason for follow-up is pneumonia and sepsis Patient is a 58-year-old male with a past medical history significant for hypertension [place] current everyday smoker presenting to the hospital for evaluation of increasing shortness of breath patient got intubated because of worsening respiratory status was noted to be septic secondary to pneumonia with evidence of right middle lobe infiltrate and urine for Legionella antigen came back positive. On today's evaluation that is 10/05/2023,the patient remains to be afebrile, patient is on room air not requiring supplemental oxygen and denies any shortness of breath no chest pain or any worsening cough.Patient denies having any nausea or vomiting, no abdominal pain and no diarrhea has been reported. Patient white count is slightly up to 13.5 today, creatinine 4.35 Objective - Vital Signs Vital signs: Vital Signs Temp 98.9 F 10/05/23 08:00 Pulse 111 H 10/05/23 08:00 Resp 16 10/05/23 08:00 BP 151/88 10/05/23 08:00 Pulse Ox 98 10/05/23 08:00 FiO2 40 10/01/23 10:33 Intake & Output 10/04/23 10/05/23 10/05/23 18:59 06:59 18:59 Intake Total 870 300 Output Total 725 600 Balance 145 -300 Weight 82.6 kg Intake: IV 70 0.9 NS 20 cefTRIAXone 2 gm In 50 Sodium Chloride 0.9% 50 ml @ 100 mls/hr IVPB Q24HR [facility] Rx#:[id number] Oral 800 300 Output: Urine 725 600 Other: Voiding Method Indwelling Catheter Urinal Urinal # Bowel Movements 1 ABP, PAP, CO, CI - Last Documented Arterial Blood Pressure 116/95 - Exam GENERAL DESCRIPTION: Middle-age male lying in bed in no distress RESPIRATORY SYSTEM: Unlabored breathing , decreased breath sounds at bases HEART: S1 S2 regular rate and rhythm , ABDOMEN: Soft , no tenderness EXTREMITIES: Mild edema feet - Labs CBC & Chem 7: 10/06/23 06:04 10/06/23 06:04 Labs: Abnormal Lab Results - Last 24 Hours (Table) 10/04/23 10/04/23 10/05/23 Range/Units 16:37 21:11 05:40 WBC 13.5 H (3.8-10.6) k/uL RBC 2.70 L (4.30-5.90) m/uL Hgb 8.5 L (13.0-17.5) gm/dL Hct 26.6 L (39.0-53.0) % Sodium (137-145) mmol/L Chloride (98-107) mmol/L BUN (9-20) mg/dL Creatinine (0.66-1.25) mg/dL POC Glucose (mg/dL) 121 H 149 H (70-110) mg/dL 10/05/23 Range/Units 05:40 WBC (3.8-10.6) k/uL RBC (4.30-5.90) m/uL Hgb (13.0-17.5) gm/dL Hct (39.0-53.0) % Sodium 130 L (137-145) mmol/L Chloride 93 L (98-107) mmol/L BUN 67 H (9-20) mg/dL Creatinine 4.35 H (0.66-1.25) mg/dL POC Glucose (mg/dL) (70-110) mg/dL Microbiology - Last 24 Hours (Table) 09/22/23 23:00 Legionella Culture - Final Sputum Legionella pneumophila Assessment and Plan (1) Legionella pneumonia Current Visit: Yes Status: Acute Code(s): A48.1 - LEGIONNAIRES' DISEASE SNOMED Code(s): 070473786 (2) Bacteremia Current Visit: Yes Status: Acute Code(s): R78.81 - BACTEREMIA SNOMED Code(s): 5047633 (3) Pneumonia Current Visit: Yes Status: Acute Code(s): J18.9 - PNEUMONIA, UNSPECIFIED ORGANISM SNOMED Code(s): 661799996 (4) Leukocytosis Current Visit: Yes Status: Acute Code(s): D72.829 - ELEVATED WHITE BLOOD CELL COUNT, UNSPECIFIED SNOMED Code(s): 178329141 Plan: 1patient presented hospital with sepsis in this patient who did have fever t achycardia elevated white count, in this patient with evidence of pneumonia and urine tested positive for Legionella antigen more likely etiology of the sepsis and pneumonia 2 patient did have a positive blood culture with a strep species which has been finalized as strep viridans, the patient repeat blood cultures are pending, patient treated with the Rocephin 2 g daily 3-patient has received about 2-week course of IV Levaquin for underlying Legionella pneumonia should be enough and patient Levaquin was discontinued as of 10/03/2023 4-leukocytosis more likely steroid related, the patient white count is slightly up today and will monitor closely 5-patient has developed a rash to the trunk more likely drug rash possible related to Rocephin which was discussed yesterday no worsening rash has been noticed today Dictation was produced using [employer] dictation software. please excuse any gramm atical, word or spelling errors. Time with Patient: Less than 30
--- NOTE | 2023-10-06 15:27 | P.PN ---
Subjective Progress Note Date: 10/06/23 Principal diagnosis: Reason for follow-up is pneumonia and sepsis Patient is a 58-year-old male with a past medical history significant for hypertension [place] current everyday smoker presenting to the hospital for evaluation of increasing shortness of breath patient got intubated because of worsening respiratory status was noted to be septic secondary to pneumonia with evidence of right middle lobe infiltrate and urine for Legionella antigen came back positive. On today's evaluation that is 10/06/2023, the patient continues to be afebrile, the patient is on room air and breathing comfortably, the Pt denies having any chest pain or cough, the patient denies having any abdominal pain no vomiting or any diarrhea has been reported, patient mention feeling better. Patient white count is down to 12.2 creatinine 3.0 Objective - Vital Signs Vital signs: Vital Signs Temp 98.7 F 10/06/23 13:56 Pulse 117 H 10/06/23 13:56 Resp 18 10/06/23 13:56 BP 122/71 10/06/23 13:56 Pulse Ox 95 10/06/23 13:56 FiO2 40 10/01/23 10:33 Intake & Output 10/05/23 10/06/23 10/06/23 18:59 06:59 18:59 Intake Total 500 240 Output Total 2500 300 Balance -2000 -300 240 Weight 84.5 kg 84.5 kg Intake: Oral 240 Hemodialysis 500 Output: Urine 300 Hemodialysis 2500 Other: Voiding Method Urinal Urinal # Voids 0 ABP, PAP, CO, CI - Last Documented Arterial Blood Pressure 116/95 - Exam GENERAL DESCRIPTION: Middle-age male lying in bed in no distress RESPIRATORY SYSTEM: Unlabored breathing , decreased breath sounds at bases HEART: S1 S2 regular rate and rhythm , ABDOMEN: Soft , no tenderness EXTREMITIES: Mild edema feet - Labs CBC & Chem 7: 10/06/23 06:04 10/06/23 06:04 Labs: Abnormal Lab Results - Last 24 Hours (Table) 10/05/23 10/06/23 10/06/23 Range/Units 22:19 06:04 06:04 WBC 12.22 H (4.50-10.00) X 10*3/uL RBC 2.50 L (4.40-5.60) X 10*6/uL Hgb 8.0 L (13.0-17.0) g/dL Hct 24.0 L (39.6-50.0) % Sodium 132 L (135-145) mmol/L Chloride 94 L (96-109) mmol/L Anion Gap 13.20 H (4.00-12.00) mmol/L BUN 34.5 H (9.0-27.0) mg/dL Creatinine 3.0 H (0.6-1.5) mg/dL Est GFR (CKD-EPI) 23 L (>=60) BUN/Creatinine Ratio 11.50 L (12.00-20.00) Ratio POC Glucose (mg/dL) 128 H (70-110) mg/dL Total Protein 5.5 L (6.2-8.2) g/dL Albumin 3.4 L (3.8-4.9) g/dL Assessment and Plan (1) Legionella pneumonia Current Visit: Yes Status: Acute Code(s): A48.1 - LEGIONNAIRES' DISEASE SNOMED Code(s): 181724589 (2) Bacteremia Current Visit: Yes Status: Acute Code(s): R78.81 - BACTEREMIA SNOMED Code(s): 3830687 (3) Pneumonia Current Visit: Yes Status: Acute Code(s): J18.9 - PNEUMONIA, UNSPECIFIED ORGANISM SNOMED Code(s): 006108063 (4) Leukocytosis Current Visit: Yes Status: Acute Code(s): D72.829 - ELEVATED WHITE BLOOD CELL COUNT, UNSPECIFIED SNOMED Code(s): 471275044 Plan: 1patient presented hospital with sepsis in this patient who did have fever tachycardia elevated white count, in this patient with evidence of pneumonia and urine tested positive for Legionella antigen more likely etiology of the sepsis and pneumonia 2 patient did have a positive blood culture with a strep species which has been finalized as strep viridans, the patient repeat blood cultures are pending, patient completed treatment with the Rocephin 2 g daily 3-patient has received about 2-week course of IV Levaquin for underlying Legionella pneumonia should be enough and patient Levaquin was discontinued as of 10/03/2023 4-leukocytosis more likely steroid related, the patient white count is slowly trending down 5-patient has developed a rash to the trunk more likely drug rash possible related to Rocephin which has been discontinued rash has shown improvement Dictation was produced using [employer] dictation software. please excuse any grammatical, word or spelling errors. Time with Patient: Less than 30
[2023-10-06 16:18] LABS: Glucose,Whole Blood 139 mg/dL (70-110)
[2023-10-06 21:06] LABS: Glucose,Whole Blood 186 mg/dL (70-110)
[2023-10-07 06:20] LABS: Glucose,Whole Blood 95 mg/dL (70-110)
[2023-10-07 10:21] LABS: HCT 23.4 % (39.6-50.0); HGB 7.6 g/dL (13.0-17.0); MCH 32.2 pg (27.0-32.0); MCHC 32.5 g/dL (32.0-37.0); MCV 99.2 FL (80.0-97.0); Mean Platelet Volume 10.1 FL (9.5-12.2); NRBC Per 100 WBC 0 X 10*3/uL (0.00-0.01); Platelet Count 271 X 10*3/uL (140-440); RBC 2.36 X 10*6/uL (4.40-5.60); RDW 14.4 % (11.5-14.5); WBC 10.09 X 10*3/uL (4.50-10.00)
[2023-10-07 10:41] LABS: BUN/Creat Ratio 11.85 Ratio (12.00-20.00); Blood Urea Nitrogen 39.1 mg/dL (9.0-27.0); Calcium 8.6 mg/dL (8.7-10.3); Carbon Dioxide 25.7 mmol/L (21.6-31.8); Chloride 94 mmol/L (96-109); Glucose 84 mg/dL (70-110); Potassium 4.1 mmol/L (3.5-5.5); Sodium 134 mmol/L (135-145)
--- NOTE | 2023-10-07 11:10 | P.PN ---
Subjective patient is seen for follow-up for acute kidney injury. patient is awake and comfortable. good urine output. No significant complaints today. scheduled for hemodialysis today. Patient will be discharged to inpatient rehab at [facility] therefore he can continue with hemodialysis on Tuesday vent is a Tuesday schedule. Objective - Vital Signs Vital signs: Vital Signs Temp 98.6 F 10/07/23 07:54 Pulse 100 10/07/23 09:08 Resp 17 10/07/23 07:54 BP 120/78 10/07/23 07:54 Pulse Ox 98 10/07/23 08:51 FiO2 40 10/01/23 10:33 Intake & Output 10/06/23 10/07/23 10/07/23 18:59 06:59 18:59 Intake Total 480 Output Total 200 Balance 480 -200 Weight 84.5 kg 90.5 kg Intake: Oral 480 Output: Urine 200 Other: Voiding Method Urinal # Voids 2 # Bowel Movements 1 ABP, PAP, CO, CI - Last Documented Arterial Blood Pressure 116/95 - Exam patient is awake and comfortable No acute distress Examination of the heart S1 and S2 Examination the lungs bilateral breath sounds are heard Abdomen is soft Examination of lower extremities shows 2+ edema bilaterally HIRED HAND exam is grossly intact. - Labs CBC & Chem 7: 10/07/23 06:56 10/07/23 06:56 Labs: Abnormal Lab Results - Last 24 Hours (Table) 10/06/23 10/06/23 10/07/23 Range/Units 16:15 21:04 06:56 WBC 10.09 H (4.50-10.00) X 10*3/uL RBC 2.36 L (4.40-5.60) X 10*6/uL Hgb 7.6 L (13.0-17.0) g/dL Hct 23.4 L (39.6-50.0) % MCV 99.2 H (80.0-97.0) FL MCH 32.2 H (27.0-32.0) pg Sodium (135-145) mmol/L Chloride (96-109) mmol/L Anion Gap (4.00-12.00) mmol/L BUN (9.0-27.0) mg/dL Creatinine (0.6-1.5) mg/dL Est GFR (CKD-EPI) (>=60) BUN/Creatinine Ratio (12.00-20.00) Ratio POC Glucose (mg/dL) 139 H 186 H (70-110) mg/dL Calcium (8.7-10.3) mg/dL 10/07/23 Range/Units 06:56 WBC (4.50-10.00) X 10*3/uL RBC (4.40-5.60) X 10*6/uL Hgb (13.0-17.0) g/dL Hct (39.6-50.0) % MCV (80.0-97.0) FL MCH (27.0-32.0) pg Sodium 134 L (135-145) mmol/L Chloride 94 L (96-109) mmol/L Anion Gap 14.30 H (4.00-12.00) mmol/L BUN 39.1 H (9.0-27.0) mg/dL Creatinine 3.3 H (0.6-1.5) mg/dL Est GFR (CKD-EPI) 21 L (>=60) BUN/Creatinine Ratio 11.85 L (12.00-20.00) Ratio POC Glucose (mg/dL) (70-110) mg/dL Calcium 8.6 L (8.7-10.3) mg/dL Microbiology - Last 24 Hours (Table) 09/20/23 11:03 Acid Fast Bacilli Smear - Preliminary Bronchoalviolar Lavage - Right Acid Fast Bacilli Culture - Preliminary Assessment and Plan Assessment: 1. Acute kidney injury, ATN. Secondary to hypotension and underlying infection. Nonoliguric. Serologies are negative except for positive ROE. Currently with indwelling Barnes catheter. Ultrasound shows no evidence of obstruction. UA shows 1+ protein and moderate blood WBCs 16. Started on hemodialysis on 09/20/2023. Good urine output but serum creatinine remains around 5. We will continue with hemodialysis and continue to monitor for recovery of renal function. 2. Community-acquired bilateral pneumonia maintained on vancomycin, cefepime and azithromycinurine legionnaire antigen positive 3. Acute hypoxic respiratory failure, status post extubation 4. Anion gap metabolic acidosis associated with acute kidney injury. 5. Hypokalemia 6. Hyponatremia,hypervolemic. Improved with dialysis 7. Volume overload Plan: continue to monitor for recovery of renal function. continue with IV Lasix. Continue with hemodialysis on Tuesday schedule.
--- NOTE | 2023-10-07 11:42 | P.PN ---
Subjective Progress Note Date: 10/07/23 The patient is seen today October 03, 2023 in follow-up in the intensive care unit. He had originally been admitted for acute hypoxic respiratory failure secondary to Legionella pneumonia. He required intubation and mechanical ventilatory support from 09/19/23 through October 01, 2023. He is currently sitting up in bed. Awake and alert in no acute distress. He is now maintaining good O2 saturations in the 90s on 2 L/min per nasal cannula. He is continued on ceftriaxone and Levaquin. Revealed no growth. Bronchial wash cultures from 09/20/2023 revealed Farzana. On 8.0. Platelets 415. Sodium 128. Potassium 4.0. Bicarb 24. BUN 106. Creatinine 5.05. Glucose 101. He is continued on DuoNeb ventilations, Perforomist inhalations, Solu-Medrol. He remains on 80 mg of IV Lasix daily. Heparin for DVT prophylaxis. Currently in a -1.9 L balance. Plan is for hemodialysis today. Plan will be for insertion of a permanent dialysis catheter. The patient is seen today October 04, 2023 in follow-up in the intensive care unit. He is currently sitting up in bed. Awake and alert in no acute distress. He is currently maintaining good O2 saturations in the 90s on 2 L/min per nasal cannula. He is afebrile. White count 12.6. Hemoglobin 7.5. Platelets 348. Sodium 129. Potassium 3.9. Bicarb 26. BUN 61. Creatinine 3.63. Chest x-ray post left PICC line and placement revealed bilateral streaky a telectasis/scarring. No pleural effusion, consolidation or pneumothorax. Follow-up blood cultures revealed no growth. He is continued on ceftriaxone. Remains on bronchodilators Solu-Medrol. Oral diuretics. Heparin for DVT prophylaxis. The patient is seen today October 05, 2023 in follow-up in the intensive care unit. He is awake and alert in no acute distress. Sitting up in bed. Maintaining good O2 saturations in the 90s on room air. No IV fluids. He is receiving hemodialysis today with a goal of 2 L of fluid to be removed. He remains on Lasix 80 mg IV daily. Continued on bronchodilators. Transitioned to prednisone taper. Heparin for DVT prophylaxis. White count 13.5. Hemoglobin 8.5. Platelets 401. Odium 130. Potassium 4.3. Bicarb 26. BUN 67. Creatinine 4.35. He completed antibiotics. Patient is seen today October 06, 2023 in follow-up on the regular medical floor. He was transferred out of the intensive care unit. He is sitting up in a chair at the bedside. He is doing very well. He denies any shortness of breath, cough or congestion. He is maintaining O2 saturations in the 90s on room air. No IV fluids. He is maintained on IV diuretics. He is on a Tuesday hemodialysis schedule. Follow-up blood cultures revealed no growth. White count 12.2. Hemoglobin 8.0. Platelets 297. Sodium 132. Potassium 4.1. Bicarb 25. BUN 36. Creatinine 3.0. He remains on bronchodilators. Continued on a prednisone taper. Heparin for DVT prophylaxis. The patient is seen today October 07, 2023 in follow-up on the regular medical floor. He is sitting up in bed. Awake and alert in no acute distress. He denies any worsening shortness of breath, cough or congestion. He is feeling stronger each day. He is maintaining good O2 saturations in the 90s on room air. No IV fluids. He continues on bronchodilators and prednisone taper. Remains on IV diuretics. White count 10.0. Hemoglobin 7.6. Platelets 271. Sodium 134. Potassium 4.1. Bicarb 26. BUN 39. Creatinine 3.3. Glucose 84. Hemodialysis yesterday with 2.5 L removed. Objective - Vital Signs Vital signs: Vital Signs Temp 98.6 F 10/07/23 07:54 Pulse 100 10/07/23 09:08 Resp 17 10/07/23 07:54 BP 120/78 10/07/23 07:54 Pulse Ox 98 10/07/23 08:51 FiO2 40 10/01/23 10:33 Intake & Output 10/06/23 10/07/23 10/07/23 18:59 06:59 18:59 Intake Total 480 Output Total 200 Balance 480 -200 Weight 84.5 kg 90.5 kg Intake: Oral 480 Output: Urine 200 Other: Voiding Method Urinal # Voids 2 # Bowel Movements 1 ABP, PAP, CO, CI - Last Documented Arterial Blood Pressure 116/95 - Exam GENERAL EXAM: Alert, pleasant 58-year-old male, on room air, resting in bed, in no distress. HEAD: Normocephalic. EYES: Normal reaction of pupils, equal size. NOSE: Clear with pink turbinates. THROAT: No erythema or exudates. NECK: No masses, no JVD. CHEST: No chest wall deformity. LUNGS: Equal air entry with bilateral scattered rhonchi. CVS: S1 and S2 normal with no audible murmur, regular rhythm. ABDOMEN: No hepatosplenomegaly, normal bowel sounds, no guarding or rigidity. SPINE: No scoliosis or deformity SKIN: No rashes CENTRAL NERVOUS SYSTEM: No focal deficits, tone is normal in all 4 extremities. EXTREMITIES: There is 1+ peripheral edema. No clubbing, no cyanosis. Peripheral pulses are intact. - Labs CBC & Chem 7: 10/07/23 06:56 10/07/23 06:56 Labs: Abnormal Lab Results - Last 24 Hours (Table) 10/06/23 10/06/23 10/07/23 Range/Units 16:15 21:04 06:56 WBC 10.09 H (4.50-10.00) X 10*3/uL RBC 2.36 L (4.40-5.60) X 10*6/uL Hgb 7.6 L (13.0-17.0) g/dL Hct 23.4 L (39.6-50.0) % MCV 99.2 H (80.0-97.0) FL MCH 32.2 H (27.0-32.0) pg Sodium (135-145) mmol/L Chloride (96-109) mmol/L Anion Gap (4.00-12.00) mmol/L BUN (9.0-27.0) mg/dL Creatinine (0.6-1.5) mg/dL Est GFR (CKD-EPI) (>=60) BUN/Creatinine Ratio (12.00-20.00) Ratio POC Glucose (mg/dL) 139 H 186 H (70-110) mg/dL Calcium (8.7-10.3) mg/dL 10/07/23 Range/Units 06:56 WBC (4.50-10.00) X 10*3/uL RBC (4.40-5.60) X 10*6/uL Hgb (13.0-17.0) g/dL Hct (39.6-50.0) % MCV (80.0-97.0) FL MCH (27.0-32.0) pg Sodium 134 L (135-145) mmol/L Chloride 94 L (96-109) mmol/L Anion Gap 14.30 H (4.00-12.00) mmol/L BUN 39.1 H (9.0-27.0) mg/dL Creatinine 3.3 H (0.6-1.5) mg/dL Est GFR (CKD-EPI) 21 L (>=60) BUN/Creatinine Ratio 11.85 L (12.00-20.00) Ratio POC Glucose (mg/dL) (70-110) mg/dL Calcium 8.6 L (8.7-10.3) mg/dL Microbiology - Last 24 Hours (Table) 09/20/23 11:03 Acid Fast Bacilli Smear - Preliminary Bronchoalviolar Lavage - Right Acid Fast Bacilli Culture - Preliminary Assessment and Plan Assessment: Acute hypoxic respiratory failure secondary to multilobar pneumonia secondary to Legionella pneumonia patient was intubated on 09/18, underwent bronchoscopy and lavage, urine Legionella antigen is positive, completed Rocephin. Extubated on 10/01/2023. Stable and on room air Septic shock, resolved Acute exacerbation of COPD, patient is on bronchodilators. Pulmonary status is gradually improving, still on bronchodilators and steroids, on room air Acute kidney injury secondary to above/secondary to acute tubular necrosis and severe dehydration and sepsis on his initial presentation, now on hemodialysis Acute transaminitis secondary to sepsis Benign essential hypertension Dyslipidemia Coronary artery disease [id number] smoking history Bacteremia with Streptococcus viridans group D, being addressed by infectious disease on the case. Repeat cultures are negative so far from 09/24/2023 Plan: The patient was seen and evaluated Labs and medications reviewed Continued on bronchodilators, prednisone taper Possible discharge to inpatient rehabilitation today I have personally seen and examined the patient, performed the documentation and the assessment and plan as written. Number of minutes spent on the visit: 10.
--- NOTE | 2023-10-07 11:58 | P.DS ---
Providers Date of admission: 09/18/23 15:39 Attending physician: Ceci Roper DO Consults: 09/18/23 15:39 Consult Physician Routine Consulting Provider: Bartolo Rapp Consult Reason/Comments: ROBERTO, likely from sepsis/dehydration Do you want consulting provider notified?: Yes 09/18/23 15:49 Consult Physician Routine Consulting Provider: Estevan Sousa Consult Reason/Comments: pneumonia, hypoxic resp failure, sepsis Do you want consulting provider notified?: Yes 09/19/23 11:29 Consult Physician Stat Consulting Provider: Noah Varghese Consult Reason/Comments: ICU admission Do you want consulting provider notified?: Yes 09/20/23 09:10 Consult Physician Stat Consulting Provider: Dorian Nelson Consult Reason/Comments: HD cath Do you want consulting provider notified?: Yes 09/21/23 08:01 Consult Physician Routine Consulting Provider: Jhoana Beckwith Consult Reason/Comments: Legionella PNA Do you want consulting provider notified?: Yes 10/05/23 11:50 Consult Physician Routine Consulting Provider: Gil Kaiser Consult Reason/Comments: IPR Do you want consulting provider notified?: Yes Primary care physician: [facility] Course: Discharge diagnosis Legionella pneumonia with septic shock: Resolved Acute hypoxic respiratory failure: Now on room air Acute COPD exacerbation: Improved Strep viridans bacteremia: Completed antibiotic course Critical illness myopathy: Improving Acute kidney injury secondary to ATN from septic shock: Patient started on dialysis Hypervolemic hyponatremia: Improving with dialysis Type II non-ST elevation DC History of coronary disease Hypertension Transaminitis: Resolved Right hepatic lobe lesion: Needs outpatient follow-up Possible alcohol withdrawal: Resolved Metabolic acidosis: Resolved Hypocalcemia: Resolved Hospital course Patient is a 58-year-old male with known hypertension, dyslipidemia, and coronary artery disease who presented with shortness of breath. On arrival to the ER vitals were remarkable for temperature of 103.3, pulse 131, and O2 sat 88% on room air. Laboratory analysis was remarkable for white blood cell count 21.1, sodium 122, bicarb 18, anion gap 20, and creatinine of 5.94. He was also noted to have a lactic acid of 3.9, magnesium 0.9, total bilirubin 1.8, AST 110, ALT 53, and troponin of 0.102. Influenza A/B/RSV/COVID-19 testing was negative. Chest x-ray demonstrated pneumonia in the right lower lobe greater than the left. Head CT showed no acute process. He was admitted for further monitoring. Nephrology, pulmonology, and cardiology were consulted. Patient's respiratory status worsened despite being on broad-spectrum antibiotics and he ultimately required intubation and vasopressor support. His troponin elevated mildly, he underwent echocardiogram which showed an ejection of 50 to 55% with no regional wall motion abnormalities and cardiology felt this was likely a type II non- STEMI. His renal function did not improve and he ultimately underwent hemodialysis on 09/19. Bronchoscopy with lavage noted significant purulence in the right lower lobe. Patient's Legionella urine antigen came back positive. He was subsequently transition to Levaquin on 09/19. Prior to that patient did receive 3 days of Zithromax. Nimbex, vasopressin and Levophed were able to be weaned off by 09/20. He continued to be agitated on fentanyl and propofol as well as tachycardic. He continued to require hemodialysis. Patient had blood cultures positive for strep viridans on 09/17 and was therefore continued on Rocephin after Levaquin was completed. Patient remained agitated on maximal doses of fentanyl and propofol therefore he was started on Ativan for CIWA protocol. He was then transitioned to dexmedetomidine. He was successfully extubated on 09/30. He had a right jugular hemodialysis catheter placed on by vascular surgery. Nephrology is recommending continued dialysis on Tuesday. At the time of discharge patient was satting well on room air. He completed his antibiotic course his delirium had also resolved. Patient looking forward to going to rehab. 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 - Moving all 4 extremities spontaneously Psych - Calm and cooperative Patient Condition at Discharge: Serious Plan - Discharge Summary New Discharge Prescriptions: New hydrALAZINE HCL [Apresoline] 50 mg PO TID tab Furosemide [Lasix] 40 mg PO BID 30 Days #60 tablet Calcium Acetate [PhosLo] 667 mg PO TID-W/MEALS tab Triamcinolone 0.1% Ointment [Kenalog 0.1% Ointment] 1 applic TOPICAL TID 7 Days each predniSONE [Deltasone] 10 mg PO DAILY tab Ipratropium-Albuterol Nebulize [Duoneb 0.5 mg-3 mg/3 ml Soln] 3 ml INHALATION RT-QID PRN each PRN Reason: Wheezing Calcium Carbonate [Tums] 500 mg PO TID tab Continue Atorvastatin [Lipitor] 80 mg PO DAILY #30 tab Nitroglycerin Sl Tabs [Nitrostat] 0.4 mg SUBLINGUAL Q5M PRN #20 tab PRN Reason: Chest Pain Clopidogrel [Plavix] 75 mg PO DAILY #30 tab Metoprolol Tartrate [Lopressor] 25 mg PO BID #60 tab Omeprazole [PriLOSEC] 40 mg PO DAILY Discontinued Albuterol Inhaler [Ventolin Hfa Inhaler] 2 puff INHALATION RT-Q4H PRN PRN Reason: Shortness Of Breath Lisinopril-Hctz 10-12.5 mg [Zestoretic 10-12.5] 1 tab PO DAILY Discharge Medication List Atorvastatin [Lipitor] 80 mg PO DAILY #30 tab 03/27/23 [Rx] Clopidogrel [Plavix] 75 mg PO DAILY #30 tab 03/27/23 [Rx] Metoprolol Tartrate [Lopressor] 25 mg PO BID #60 tab 03/27/23 [Rx] Nitroglycerin Sl Tabs [Nitrostat] 0.4 mg SUBLINGUAL Q5M PRN #20 tab 03/27/23 [Rx] Omeprazole [PriLOSEC] 40 mg PO DAILY 09/18/23 [History] Calcium Acetate [PhosLo] 667 mg PO TID-W/MEALS tab 10/07/23 [Rx] Calcium Carbonate [Tums] 500 mg PO TID tab 10/07/23 [Rx] Furosemide [Lasix] 40 mg PO BID 30 Days #60 tablet 10/07/23 [Rx] Ipratropium-Albuterol Nebulize [Duoneb 0.5 mg-3 mg/3 ml Soln] 3 ml INHALATION RT-QID PRN each 10/07/23 [Rx] Triamcinolone 0.1% Ointment [Kenalog 0.1% Ointment] 1 applic TOPICAL TID 7 Days each 10/07/23 [Rx] hydrALAZINE HCL [Apresoline] 50 mg PO TID tab 10/07/23 [Rx] predniSONE [Deltasone] 10 mg PO DAILY tab 10/07/23 [Rx] Follow up Appointment(s)/Referral(s): Vern Ernandez MD [Primary Care Provider] - 1-2 days Michelle Landeros MD [STAFF PHYSICIAN] - 1 Week Plan of Treatment: You were found to have accidental finding of a liver lesion. Please discuss this with our PCP
[2023-10-07 12:00] LABS: Glucose,Whole Blood 126 mg/dL (70-110)
[2023-10-07] MEDS: TRIAMCINOLONE ACET 0.1% OINTMENT 80 GM TUBE TOPICAL SCH (12:39)
--- NOTE | 2023-10-07 16:07 | P.PN ---
Subjective Progress Note Date: 10/07/23 Principal diagnosis: Reason for follow-up is pneumonia and sepsis Patient is a 58-year-old male with a past medical history significant for hypertension ID current everyday smoker presenting to the hospital for evaluation of increasing shortness of breath patient got intubated because of worsening respiratory status was noted to be septic secondary to pneumonia with evidence of right middle lobe infiltrate and urine for Legionella antigen came back positive. On today's evaluation that is 10/07/2023, Patient is afebrile patient is currently on room air and denies having any shortness of breath, the patient denies any chest pain or cough, the patient denies any nausea vomiting did not have any abdominal pain and no diarrhea, feeling better. Patient white count is down to 10.09 creatinine is 3.3 blood culture repeat negative sputum culture positive for Legionella Objective - Vital Signs Vital signs: Vital Signs Temp 98.6 F 10/07/23 07:54 Pulse 98 10/07/23 12:32 Resp 17 10/07/23 07:54 BP 120/78 10/07/23 07:54 Pulse Ox 98 10/07/23 08:51 FiO2 40 10/01/23 10:33 Intake & Output 10/06/23 10/07/23 10/07/23 18:59 06:59 18:59 Intake Total 480 Output Total 200 Balance 480 -200 Weight 84.5 kg 90.5 kg Intake: Oral 480 Output: Urine 200 Other: Voiding Method Urinal # Voids 2 # Bowel Movements 1 ABP, PAP, CO, CI - Last Documented Arterial Blood Pressure 116/95 - Exam GENERAL DESCRIPTION: Middle-age male lying in bed in no distress RESPIRATORY SYSTEM: Unlabored breathing , decreased breath sounds at bases HEART: S1 S2 regular rate and rhythm , ABDOMEN: Soft , no tenderness EXTREMITIES: Mild edema feet - Labs CBC & Chem 7: 10/07/23 06:56 10/07/23 06:56 Labs: Abnormal Lab Results - Last 24 Hours (Table) 10/06/23 10/06/23 10/07/23 Range/Units 16:15 21:04 06:56 WBC 10.09 H (4.50-10.00) X 10*3/uL RBC 2.36 L (4.40-5.60) X 10*6/uL Hgb 7.6 L (13.0-17.0) g/dL Hct 23.4 L (39.6-50.0) % MCV 99.2 H (80.0-97.0) FL MCH 32.2 H (27.0-32.0) pg Sodium (135-145) mmol/L Chloride (96-109) mmol/L Anion Gap (4.00-12.00) mmol/L BUN (9.0-27.0) mg/dL Creatinine (0.6-1.5) mg/dL Est GFR (CKD-EPI) (>=60) BUN/Creatinine Ratio (12.00-20.00) Ratio POC Glucose (mg/dL) 139 H 186 H (70-110) mg/dL Calcium (8.7-10.3) mg/dL 10/07/23 10/07/23 Range/Units 06:56 11:58 WBC (4.50-10.00) X 10*3/uL RBC (4.40-5.60) X 10*6/uL Hgb (13.0-17.0) g/dL Hct (39.6-50.0) % MCV (80.0-97.0) FL MCH (27.0-32.0) pg Sodium 134 L (135-145) mmol/L Chloride 94 L (96-109) mmol/L Anion Gap 14.30 H (4.00-12.00) mmol/L BUN 39.1 H (9.0-27.0) mg/dL Creatinine 3.3 H (0.6-1.5) mg/dL Est GFR (CKD-EPI) 21 L (>=60) BUN/Creatinine Ratio 11.85 L (12.00-20.00) Ratio POC Glucose (mg/dL) 126 H (70-110) mg/dL Calcium 8.6 L (8.7-10.3) mg/dL Microbiology - Last 24 Hours (Table) 09/20/23 11:03 Acid Fast Bacilli Smear - Preliminary Bronchoalviolar Lavage - Right Acid Fast Bacilli Culture - Preliminary Assessment and Plan (1) Legionella pneumonia Current Visit: Yes Status: Acute Code(s): A48.1 - LEGIONNAIRES' DISEASE SNOMED Code(s): 350137043 (2) Bacteremia Current Visit: Yes Status: Acute Code(s): R78.81 - BACTEREMIA SNOMED Code(s): 2081011 (3) Pneumonia Current Visit: Yes Status: Acute Code(s): J18.9 - PNEUMONIA, UNSPECIFIED ORGANISM SNOMED Code(s): 322530485 (4) Leukocytosis Current Visit: Yes Status: Acute Code(s): D72.829 - ELEVATED WHITE BLOOD CELL COUNT, UNSPECIFIED SNOMED Code(s): 996518823 Plan: 1patient presented hospital with sepsis in this patient who did have fever tachycardia elevated white count, in this patient with evidence of pneumonia and urine tested positive for Legionella antigen more likely etiology of the sepsis and pneumonia 2 patient did have a positive blood culture with a strep species which has been finalized as strep viridans, the patient repeat blood cultures are pending, patient completed treatment with the Rocephin 2 g daily 3-patient has received about 2-week course of IV Levaquin for underlying Legionella pneumonia should be enough and patient Levaquin was discontinued as of 10/03/2023 4-leukocytosis more likely steroid related, the patient white count has also normalized 5-patient has developed a rash to the trunk more likely drug rash possible related to Rocephin which has been discontinued rash has shown improvement No need for antibiotics on discharge Dictation was produced using [employer] dictation software. please excuse any grammatical, word or spelling errors.
[2023-10-07 16:13] LABS: Glucose,Whole Blood 119 mg/dL (70-110)
[2023-10-07 18:31] VITALS: BP 123/79; PULSE 110; RESP 17; TEMP 98.7
[2023-10-08] MEDS ORDERED: PANTOPRAZOLE 40 MG TABLET PO SCH (07:30)
== END 2023-10-07 18:11 | disposition home or self-care (01) | DRG 870 ==
LOC: SUPCPDRO 13:21 → EC 13:21 → 3SCARD 15:39 → 2SICU 09-19 11:34 → 4SSUR 10-05 16:32
PROVIDERS: ADMIT Internal Medicine; ATTEND Internal Medicine
PROC: HZ2ZZZZ Detoxification Services for Substance Abuse Treatment (ICD-10-PCS; 2023-09-18)
PROC: 3E0336Z Introduction of Nutritional Substance into Peripheral Vein, Percutaneous Approach (ICD-10-PCS; 2023-09-18)
PROC: 02HV33Z Insertion of Infusion Device into Superior Vena Cava, Percutaneous Approach (ICD-10-PCS; 2023-09-19)
PROC: 4A133B1 Monitoring of Arterial Pressure, Peripheral, Percutaneous Approach (ICD-10-PCS; 2023-09-19)
PROC: 4A133J1 Monitoring of Arterial Pulse, Peripheral, Percutaneous Approach (ICD-10-PCS; 2023-09-19)
PROC: 03HY32Z Insertion of Monitoring Device into Upper Artery, Percutaneous Approach (ICD-10-PCS; 2023-09-19)
PROC: 5A1955Z Respiratory Ventilation, Greater than 96 Consecutive Hours (ICD-10-PCS; principal; 2023-09-20)
PROC: 0BH18EZ Insertion of Endotracheal Airway into Trachea, Via Natural or Artificial Opening Endoscopic (ICD-10-PCS; 2023-09-20)
PROC: 5A1D70Z Performance of Urinary Filtration, Intermittent, Less than 6 Hours Per Day (ICD-10-PCS; 2023-09-20)
PROC: 3E033XZ Introduction of Vasopressor into Peripheral Vein, Percutaneous Approach (ICD-10-PCS; 2023-09-25)
PROC: 0B9F8ZZ Drainage of Right Lower Lung Lobe, Via Natural or Artificial Opening Endoscopic (ICD-10-PCS; 2023-09-26)
PROC: B5181ZA Fluoroscopy of Superior Vena Cava using Low Osmolar Contrast, Guidance (ICD-10-PCS; 2023-10-03)
PROC: B548ZZA Ultrasonography of Superior Vena Cava, Guidance (ICD-10-PCS; 2023-10-03)
PROC: 02PYX3Z Removal of Infusion Device from Great Vessel, External Approach (ICD-10-PCS; 2023-10-03)
PROC: 02HV33Z Insertion of Infusion Device into Superior Vena Cava, Percutaneous Approach (ICD-10-PCS; 2023-10-03 21:25)
DX: A41.89 Other specified sepsis (principal); A48.1 Legionnaires' disease; I21.A1 Myocardial infarction type 2; R65.21 Severe sepsis with septic shock; J96.01 Acute respiratory failure with hypoxia; J96.02 Acute respiratory failure with hypercapnia; N17.0 Acute kidney failure with tubular necrosis; B37.1 Pulmonary candidiasis; J44.0 Chronic obstructive pulmonary disease with (acute) lower respiratory infection; F10.239 Alcohol dependence with withdrawal, unspecified; J98.11 Atelectasis; I13.0 Hypertensive heart and chronic kidney disease with heart failure and stage 1 through stage 4 chronic kidney disease, or unspecified chronic kidney disease; G72.81 Critical illness myopathy; E87.1 Hypo-osmolality and hyponatremia; E87.20 Acidosis, unspecified; J44.1 Chronic obstructive pulmonary disease with (acute) exacerbation; Z99.11 Dependence on respirator [ventilator] status; R76.8 Other specified abnormal immunological findings in serum; D64.9 Anemia, unspecified; E83.42 Hypomagnesemia; E83.51 Hypocalcemia; E86.0 Dehydration; E86.1 Hypovolemia; E87.6 Hypokalemia; I11.0 Hypertensive heart disease with heart failure; I45.10 Unspecified right bundle-branch block; I48.91 Unspecified atrial fibrillation; Z99.2 Dependence on renal dialysis; E11.22 Type 2 diabetes mellitus with diabetic chronic kidney disease; E87.5 Hyperkalemia; N18.9 Chronic kidney disease, unspecified; D50.9 Iron deficiency anemia, unspecified; E87.70 Fluid overload, unspecified; E78.5 Hyperlipidemia, unspecified; E83.39 Other disorders of phosphorus metabolism; E87.8 Other disorders of electrolyte and fluid balance, not elsewhere classified; F17.210 Nicotine dependence, cigarettes, uncomplicated; I25.10 Atherosclerotic heart disease of native coronary artery without angina pectoris; I25.2 Old myocardial infarction; I50.9 Heart failure, unspecified; K76.89 Other specified diseases of liver; B95.4 Other streptococcus as the cause of diseases classified elsewhere; L25.1 Unspecified contact dermatitis due to drugs in contact with skin; R74.01 Elevation of levels of liver transaminase levels; T36.1X5A Adverse effect of cephalosporins and other beta-lactam antibiotics, initial encounter; T38.0X5A Adverse effect of glucocorticoids and synthetic analogues, initial encounter; W01.0XXA Fall on same level from slipping, tripping and stumbling without subsequent striking against object, initial encounter; Z79.02 Long term (current) use of antithrombotics/antiplatelets; Z87.11 Personal history of peptic ulcer disease; Z79.899 Other long term (current) drug therapy; X58.XXXA Exposure to other specified factors, initial encounter; Z90.49 Acquired absence of other specified parts of digestive tract; Z87.19 Personal history of other diseases of the digestive system
CPT/HCPCS: 36415; 36558; 36600; 70450; 71045; 72125; 72170; 76705; 76770; 76937; 77001; 80048; 80053; 80202; 81001; 82310; 82803; 82805; 83516; 83605; 83735; 83935; 84100; 84145; 84165; 84484; 85025; 85027; 85610; 85730; 86038; 86039; 86140; 86160; 86225; 86255; 86334; 86335; 86706; 86803; 87040; 87070; 87086; 87102; 87116; 87205; 87206; 87340; 87449; 87496; 87498; 87502; 87529; 87634; 87635; 87636; 87798; 89050; 90935; 93005; 93306; 94002; 94003; 94640; 94660; 94760; 96361; 96365; 96366; 96367; 96372; 96375; 96376; 99211; 99291